=== PATIENT | female | born 1955 | race Caucasian/White ===

== ENCOUNTER 2022-11-25 08:10 | Outpatient (OUT) | payer MEDICARE, OTHER, SELFPAY ==
[2022-11-25 08:31] LABS: Basophils Percent Auto 0.2 % (0.2-2.0); Eosinophils Absolute Auto 0.1 10^3/uL (0.0-0.7); Eosinophils Percent Auto 2.6 % (0.9-7.0); Hematocrit 38.9 % (36.0-48.0); Hemoglobin 13.5 g/dL (12.0-16.0); Immature Granulocytes Abs Auto 0.01 10^3/uL (0.00-0.03); Immature Granulocytes Pct Auto 0.2 % (0.0-0.5); Lymphocytes Absolute Auto 1.8 10^3/uL (1.2-3.8); Lymphocytes Percent Auto 39.9 % (20.5-60.0); Mean Corpuscular HGB Conc 34.7 g/dL (29.9-35.2); Mean Corpuscular Hemoglobin 32.5 pg (26.7-34.0); Mean Corpuscular Volume 93.7 fL (81.0-99.0); Mean Platelet Volume 9.9 fL (9.5-13.5); Monocytes Absolute Auto 0.5 10^3/uL (0.3-0.8); Monocytes Percent Auto 11.8 % (1.7-12.0); Neutrophils Absolute Auto 2.1 10^3/uL (1.4-6.5); Neutrophils Percent Auto 45.3 % (43.0-75.0); Platelet Count 232 10^3/uL (150-450); Red Blood Count 4.15 10^6/uL (4.20-5.40); Red Cell Distribution Width 14.8 % (11.0-15.0); White Blood Count 4.6 10^3/uL (4.0-11.0)
[2022-11-25 10:03] LABS: Alanine Aminotransferase 30 U/L (14-59); Albumin Globulin Ratio 0.9; Albumin Level 3.8 g/dL (3.4-5.0); Alkaline Phosphatase 40 U/L (46-116); Anion Gap 13.7; Aspartate Amino Transferase 20 U/L (15-37); BUN Creatinine Ratio 22.4; Bilirubin Total 0.4 mg/dL (0.2-1.0); Calcium 9.1 mg/dL (8.5-10.1); Carbon Dioxide 27.3 mmol/L (21.0-32.0); Chloride 102 mmol/L (98-107); Chol HDL Ratio 4.1; Cholesterol 248 mg/dL (<=200); Estimated GFR (African America >60 (>=60); Estimated GFR (Non-African Ame >60 (>=60); Glucose 119 mg/dL (74-106); HDL Cholesterol 61 mg/dL (40-60); Sodium 139 mmol/L (136-145); Total Protein 7.8 g/dL (6.4-8.2); Triglycerides 266 mg/dL (<=150); VLDL CHOLESTEROL 53.2 mg/dL
== END 2022-11-25 08:11 | disposition home or self-care (01) ==
LOC: LAB 08:14
PROVIDERS: PCP Family Medicine; Visit Provider Family Medicine
DX: E78.00 Pure hypercholesterolemia, unspecified (principal); I10 Essential (primary) hypertension
CPT/HCPCS: 36415; 80053; 80061; 85025

== ENCOUNTER 2023-02-04 09:46 | Outpatient (REF) | payer MEDICARE, OTHER, SELFPAY ==
[2023-02-04 12:47] LABS: SARS-CoV-2 Ag POSITIVE (NEGATIVE)
== END 2023-02-04 09:47 | disposition home or self-care (01) ==
LOC: LAB 09:46
PROVIDERS: PCP Family Medicine; Visit Provider Family Medicine
DX: Z20.822 Contact with and (suspected) exposure to COVID-19 (principal)
CPT/HCPCS: 87811

== ENCOUNTER 2023-02-21 09:54 | Outpatient (OUT) | payer MEDICARE, OTHER, SELFPAY ==
--- NOTE | 2023-02-21 | XR_ITS ---
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 TECHNIQUE: Routine views of the XR foot RT min 3V FINDINGS/ XR/XR foot RT min 3V IMPRESSION: 1. No acute fractures. No aggressive periosteal reaction or destructive osseous changes. Plantar calcaneal spur and Achilles enthesophyte. 2. Mild swelling about the first MTP. 3. Posterior fusion at the first MTP with with essentially complete osseous bridging. Remaining joint spaces are largely preserved. Electronically authenticated by: STUART DESIR Date: 02/22/2023 13:20
== END 2023-02-21 09:55 | disposition home or self-care (01) ==
LOC: WC 09:55
PROVIDERS: PCP Family Medicine; Visit Provider Podiatrist Foot & Ankle Surgery
DX: E11.621 Type 2 diabetes mellitus with foot ulcer (principal); L84 Corns and callosities; E11.40 Type 2 diabetes mellitus with diabetic neuropathy, unspecified; L97.519 Non-pressure chronic ulcer of other part of right foot with unspecified severity
CPT/HCPCS: 73630; G0463

== ENCOUNTER 2023-02-25 07:27 | Outpatient (OUT) | payer MEDICARE, OTHER, SELFPAY ==
--- NOTE | 2023-02-25 | MR_ITS ---
The [address] [address] Patient Name: PARTH POWERS MRN: [id number] date: 1955 Sex: F Assigned Patient Location: MRI Current Patient Location: MRI Accession/Order Number: [id number] Exam Date: 02/25/2023 07:51 Report Date: 02/25/2023 08:36 At the request of: DAVID BOLANOS Procedure: MR head/brain wo con EXAM: MR head/brain wo con HISTORY: R41.3; memory deficit COMPARISON: None. TECHNIQUE: Multiplanar multisequence MR imaging of the brain was performed without intravenous contrast. FINDINGS: Calvarium/skull base: No focal marrow replacing lesion suggestive of neoplasm. Orbits: Grossly unremarkable. Paranasal sinuses: Subtotal opacification of the left maxillary sinus with heterogeneous internal signal likely relating to inspissated secretions and/or fungal colonization. Brain: No restricted diffusion. Minimal T2 FLAIR signal hyperintensities are present involving the left frontal white matter within normal limits for patient's age and most commonly relates to sequela small vessel disease. There is mild generalized parenchymal volume loss slightly more prominent involving the parietal lobes. No mass effect, hemorrhage, or hydrocephalus. Grossly normal flow-related signal in the major intracranial arteries and dural sinuses. MR/MR head/brain wo con IMPRESSION: 1. No acute intracranial process. 2. Mild generalized parenchymal volume loss slightly more prominent involving the parietal lobes. 3. Left maxillary sinus disease. Electronically authenticated by: DAIANA BERNAL Date: 02/25/2023 08:36
== END 2023-02-25 07:28 | disposition home or self-care (01) ==
LOC: MRI 07:27
PROVIDERS: PCP Family Medicine; Visit Provider Family Medicine
DX: R41.3 Other amnesia (principal)
CPT/HCPCS: 70551

== ENCOUNTER 2023-02-28 10:08 | Outpatient (OUT) | payer MEDICARE, OTHER, SELFPAY ==
[2023-02-28 11:50] LABS: Thyroid Stimulating Hormone 0.946 uIU/mL (0.358-3.740)
== END 2023-02-28 10:09 | disposition home or self-care (01) ==
LOC: LAB 10:09
PROVIDERS: PCP Family Medicine; Visit Provider Psychiatry & Neurology Neurology
DX: R41.3 Other amnesia (principal)
CPT/HCPCS: 36415; 82607; 84443

== ENCOUNTER 2023-08-19 13:45 | Outpatient (OUT) | payer MEDICARE, OTHER, SELFPAY ==
--- NOTE | 2023-08-19 14:06 | XR_ITS ---
The [address] [address] Patient Name: PARTH POWERS MRN: [id number] date: 1955 Sex: F Assigned Patient Location: [facility] Current Patient Location: Accession/Order Number: [id number] Exam Date: 08/19/2023 14:00 Report Date: 08/20/2023 06:52 At the request of: DAVID BOLANOS Procedure: XR hip LT 2V w/ pelvis PROCEDURE: XR hip LT 2V w/ pelvis HISTORY: pain of left hip M25.552 COMPARISON: None. FINDINGS: BONES:No fracture, acute abnormality, or significant arthropathy. SOFT TISSUES:No visible soft tissue swelling. EFFUSION:None visible. OTHER: Negative. XR/XR hip LT 2V w/ pelvis IMPRESSION: 1. No acute bone abnormality. 2. 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 Electronically authenticated by: HERMINIA BRUNER Date: 08/20/2023 06:52
== END 2023-08-19 13:46 | disposition home or self-care (01) ==
LOC: RAD 13:48
PROVIDERS: PCP Family Medicine; Visit Provider Family Medicine
DX: M25.552 Pain in left hip (principal); M16.0 Bilateral primary osteoarthritis of hip
CPT/HCPCS: 73502

== ENCOUNTER 2023-09-01 22:31 | Outpatient (REF) | payer MEDICARE, OTHER, SELFPAY ==
--- OUTSIDE RECORDS SUMMARY | 2023-09-01 22:41 | XMS_ITS | CCD ---
Author Organization [facility] Care Team Providers Care Banquet Chef Name Role Phone Keith Gaspar Unavailable Stacey Vigil Unavailable MD David Bolanos Primary Care Provider [phone] MD Regina Biggs Attending Provider David Bolanos Primary Care Unavailable Regina Biggs Attending Unavailable Regina Biggs Admitting Unavailable David Bolanos MD Primary Care Provider David Bolanos Unavailable SAV ., DR EM Hernandez Attending Unavailable LUIS MIGUEL, DR DAVID Bravo Consulting Unavailable LUIS MIGUEL, DR DAVID Bravo Primary Care Unavailable SAV ., DR EM Hernandez Admitting Unavailable SAV ., DR EM Hernandez Consulting Unavailable EUNICE KHANNA Consulting Unavailable SAV ., DR EM Hernandez Attending Unavailable LUIS MIGUEL, DR DAVID Bravo Primary Care Unavailable SAV ., DR EM Hernandez Consulting Unavailable SAV ., DR EM Hernandez Admitting Unavailable LUIS MIGUEL, DR DAVID Bravo Primary Care Unavailable SCARLETT WANG Admitting Unavailable SCARLETT WANG Attending Unavailable SAV ., DR EM Hernandez Attending Unavailable LUIS MIGUEL, DR DAVID Bravo Primary Care Unavailable SAV ., DR EM Hernandez Admitting Unavailable LUIS MIGUEL, DR DAVID Bravo Consulting Unavailable SAV ., DR EM Hernandez Consulting Unavailable JOSHUA HOLDER Consulting Unavailable SAV ., DR EM Hernandez Attending Unavailable LUIS MIGUEL, DR DAVID Bravo Primary Care Unavailable SAV ., DR EM Hernandez Admitting Unavailable SERNA ., DR EM Hernandez Consulting Unavailable SERNA ., DR EM Hernandez Attending Unavailable LUIS MIGUEL, DR DAVID Bravo Primary Care Unavailable SAV ., DR EM Hernandez Admitting Unavailable SAV ., DR EM Hernandez Consulting Unavailable SAV ., DR EM Hernandez Attending Unavailable LUIS MIGUEL, DR DAVID Bravo Primary Care Unavailable SERNA ., DR EM Hernandez Admitting Unavailable SERNA ., DR EM Hernandez Consulting Unavailable SERNA ., DR EM Hernandez Attending Unavailable BOLANOS, DR DAVID Bravo Primary Care Unavailable SERNA ., DR EM Hernandez Admitting Unavailable SERNA ., DR EM Hernandez Consulting Unavailable SERNA ., DR EM Hernandez Attending Unavailable BOLANOS, DR DAVID Bravo Primary Care Unavailable SERNA ., DR EM Hernandez Admitting Unavailable BOLANOS, DR DAVID Bravo Primary Care Unavailable BOLANOS, DR DAVID Bravo Attending Unavailable BOLANOS, DR DAVID Bravo Admitting Unavailable [place], DR IGLLES Campo Consulting Unavailable BOLANOS, DR DAVID Bravo Consulting Unavailable BOLANOS, DR DAVID Bravo Attending Unavailable BOLANOS, DR DAVID Bravo Admitting Unavailable BOLANOS, DR DAVID Bravo Primary Care Unavailable BOLANOS, DR DAVID Bravo Consulting Unavailable BOLANOS, DR DAVID Bravo Consulting Unavailable BOLANOS, DR DAVID Bravo Primary Care Unavailable BOLANOS, DR CHAUDHRY Admitting Unavailable BOLANOS, DR CHAUDHRY Attending Unavailable HEGG, IVÁN Consulting Unavailable KARASIK ., DR MENDEZ Attending Unavailabl e KARASIK ., DR MENDEZ Admitting Unavailabl e KARASIK ., DR MENDEZ Consulting Unavailabl e BOLANOS, DR DAVID Bravo Primary Care Unavailable WEST, DR GILLES Campo Consulting Unavailable BOLANOS, DR DAVID Bravo Primary Care Unavailable KARASIK ., DR MENDEZ Admitting Unavailabl e KARASIK ., DR MENDEZ Consulting Unavailabl e KARASIK ., DR MENDEZ Attending Unavailabl e SERNA ., DR EM Hernandez Attending Unavailable BOLANOS, DR DAVID Bravo Primary Care Unavailable SERNA ., DR EM Hernandez Admitting Unavailable SERNA ., DR EM Hernandez Attending Unavailable SERNA ., DR EM Hernandez Admitting Unavailable BOLANOS, DR DAVID Bravo Primary Care Unavailable SERNA ., DR EM Hernandez Consulting Unavailable JELENA CALIXTO Attending Unavailable BOLANOS, DAVID Bravo Primary Care Unavailable SELF Referring Unavailable GREGG BLUM Attending Unavailable LUIS MIGUEL, DAVID Bravo Primary Care Unavailable Sandeep ARCHULETA Attending Unavailable Sandeep ARCHULETA Attending Unavailable Za Espinoza Attending Unavailable Allergies Allergy Classification Reported Allergen(s) Allergy Type Date of Onset Reaction(s) Facility (15 sources) Acetaminophen / HYDROcodone; Translations: [Vicodin] Drug Allergy 03-27-20 15 Unknown [facility] Repository (19 sources) HYDROmorphone; Translations: [HYDROmorphone] Drug Allergy 03-27-20 15 Unknown [facility] Repository (13 sources) Morphine Drug Allergy Unknown [facility] Other (4 sources) Acetaminophen / HYDROcodone; Translations: [HYDROCODONE-ACET AMINOPHEN] Drug Allergy 12-23-19 15 [facility] (4 sources) Adhesive Tape; Translations: [ADHESIVE TAPE (ROSINS)] Allergy to substance 03-13-20 12 [facility] (4 sources) HYDROmorphone; Translations: [HYDROMORPHONE (BULK)] Drug Allergy 12-23-19 15 [facility] Latex; Translations: [LATEX, NATURAL RUBBER] Drug Allergy 08-15-19 17 [facility] (4 sources) Oats, Oat Gum; Translations: [OATS, OAT GUM] Food Allergy 05-21-19 17 [facility] (12 sources) Adhesive Tape; Translations: [Tape] Drug allergy Unknown [facility] Repository (12 sources) Latex; Translations: [Latex] Drug allergy Unknown [facility] Repository (2 sources) HYDROmorphone; Translations: [Dilaudid] Drug Allergy 03-27-20 15 [facility] Repository (1 source) Latex Drug allergy (disorder) 03-27-20 15 [facility] Repository (1 source) Morphine Drug Allergy [facility] Repository (2 sources) Nimorazole; Translations: [Oats] Drug Allergy 04-14-19 17 [facility] Repository (1 source) Misc-Other; Translations: [Misc-Other] Propensity to adverse reactions (disorder) 03-27-20 15 [facility] Repository (7 sources) Vicodin *ANALGESICS - OPIOID* Propensity to adverse reactions 04-14-19 19 Unknown [facility] [employer] Other (7 sources) Morphine Sulfate (Concentrate) *ANALGESICS - OPIOI Propensity to adverse reactions Unknown [facility] Other (2 sources) Allergies Reconciled Propensity to adverse reactions Unknown [facility] Other (2 sources) patient allergy list reviewed by nurse or physicia Propensity to adverse reactions 07-15-19 14 Comment:Done [facility] Other Medications Current Medications Medication Drug Class(es) Dates Sig (Normalized) Sig (Original) calcium carbonate 1500 mg oral tablet (18 sources) take 1 tablet by risa th every twelve hours Calcium 600 MG 1 tablet with meals Orally Twice a day Active take 1 tablet by mouth every twe lve hours Calcium 500 MG 1 tablet with meals Orally Twice a day Active dexamethasone phosphate 4 mg/ml injectable solution (13 sources) Corticosteroid Start: 03-20-2021 Dexamethasone Sodium Phosphate 4 MG/ML 1.5 - 2 ML's as directed with physical therapy Injection up to three times per week Mar, Active Start: 03-20-2021 dexAMETHasone Sodium Phosphate 4 MG/ML 1.5 - 2 ML's as directed with physical therapy Injection up to three times per week Mar, Not-Taking Fish Oils (11 sources) take 1 capsule by mo [facility] once daily Fish Oil 1000 MG 1 capsule Orally Once a day Active Iron (7 sources) take 1 tablet by mouth once leeanna y Iron 325 (65 Fe) MG 1 tablet Orally Once a day Active tiZANidine 4 mg oral tablet (11 sources) Central alpha-2 Adrenergic Agonist Start: 06-06-2022 take 1 tablet by mouth every eight hours tiZANidine HCl 4 MG 1 tablet as needed Orally Three times a day for 90 days May, Active Vitamin D3 [id number] UNIT/GM (18 sources) Vitamin D3 56362 [id number] UNIT/GM as directed Active {20 (nirmatrelvir 150 MG Oral Tablet) / 10 (ritonavir 100 MG Oral Tablet) } Pack [Paxlovid 5-Day] (2 sources) Start: 02-04-2023 take 3 tablets by mouth every twelve hours Paxlovid (300/100) 20 x 150 MG & 10 x 100MG 3 tablets Orally Twice a day for 5 day(s) Jan, Active Completed/Discontinued Medications Medication Drug Class(es) Dates Sig (Normalized) Sig (Original) A-CYSTEINE/ARG ZN/GLUT/MV-MN (RESTORE-X ORAL) (3 sources) A-CYSTEINE/ARG ZN/GLUT/MV-MN (RESTORE-X ORAL) Take by mouth. 0 Active Comment on above: Take by mouth. Acetaminophen (19 sources) take 1 tablet by mouth every six hours as needed Acetaminophen 500 MG 1 tablet as needed Orally every 6 hrs Not-Taking ACETAMINOPHEN (T YLENOL 8 HOUR ORAL) Take 2 tablets by mouth as needed. 0 Active Comment on above: Take 2 tablets by mo [facility] as needed. alendronic acid 35 mg oral tablet (20 sources) Bisphosphonate Start: 0 take 1 tablet by mouth every week alendronate (FOSAMAX) 35 mg tablet Take 35 mg by mouth one time a week. 0 08/12/2019 Active take 1 tablet by mouth once leeanna y Alendronate Sodium 35 MG 1 tablet 30 minutes before the first food, beverage or medicine of the day with plain water Orally Active Comment on above: Take 35 mg by mouth one time a week. Alpha Lipoic Acid 200 MG (9 sources) take 1 capsule by mouth once daily Alpha Lipoic Acid 200 MG 1 capsule Orally Once a day Not-Taking Ascorbic Acid (3 sources) Vitamin C ascorbic acid (VITAMIN C ORAL) Take by mouth once daily. 0 Active Comment on above: Take by mouth once d aily. aspirin 81 mg delayed release oral tablet (20 sources) Platelet Aggregation Inhibitor, Nonsteroidal Anti-inflammatory Drug take 1 tablet by mouth once daily aspirin, enteric coated (ASPIRIN, ENTERIC COATED) 81 mg EC tablet Take 81 mg by mouth once daily. 0 Active take 1 tablet by risa every twenty-four hours Aspirin 81 MG 1 tablet Orally Once a day Active Comment on above: Take 81 mg by mouth once daily. Biotin (20 sources) take 1 tablet by risa every twenty-four hours Biotin 300 MCG 1 tablet Orally Once a day Active BIOTIN ORAL Take by mouth. 0 Active take 1 tablet by mouth once leeanna y Biotin 300 MCG 1 tablet Orally Once a day Active Comment on above: Take by mouth. Calcium Carbonate / vitamin D3 (3 sources) Start: 08-11-19 20 calcium carbonate/vitamin D3 (CALCIUM 600 + D,3, ORAL) cholecalciferol 0.05 mg oral tablet (3 sources) Vitamin D take 1 tablet by mouth once daily cholecalciferol (VITAMIN D-3) 50 mcg (2,000 unit) tablet Take 2,000 Units by mouth once daily. 0 Active Comment on above: Take 2,000 Units by mouth once daily. DHEA 25 MG (9 sources) DHEA 25 MG as di rected Orally Not-Taking ferrous sulfate (14 sources) take 1 tablet by mouth every twenty-four hours Iron 325 (65 Fe) MG 1 tablet Orally Once a day Active take 65 mg by mouth three times weekly FERROUS SULFATE (IRON ORAL) Take 65 mg by mouth three times a week. 3 days a week 0 Active Comment on above: Take 65 mg by mouth three times a week. 3 days a week Fish Oil-[place]-3 Fatty Acids (FISH OIL) 340-1,000 mg cap (3 sources) take 1 capsule by mouth once daily Fish Oil-Moclips-3 Fatty Acids (FISH OIL) 340-1,000 mg cap Take 1 capsule by mouth once daily. 0 Active Comment on above: Take 1 capsule by mo [facility] once daily. fluocinonide 0.5 mg/ml topical cream (11 sources) Corticosteroid Start: 03-22-20 21 Fluocinonide 0.05 % apply 1-2 grams Externally up to three times weekly with PT Mar, Not-Taking glucosamine 750 mg oral tablet (9 sources) Glucosamine 750 MG as directed Orally Not-Taking glucosamine/chondroi tin/C/Bin (GLUCOSAMINE 1500 COMPLEX ORAL) (3 sources) glucosamine/walt droi tin/C/Bin (GLUCOSAMINE 1500 COMPLEX ORAL) Take 1,500 mg by mouth once daily. 0 Active Comment on above: [facility] losartan potassium 25 mg oral tablet (20 sources) Angiotensin 2 Receptor Rosamaria Start: 11-16-19 18 take 1 tablet by mouth once daily losartan (COZAAR) 25 mg tablet Take 25 mg by mouth once daily. 0 11/15/2017 Active Comment on above: Take 25 mg by mouth once daily. Magnesium (9 sources) Magnesium 400 MG as directed Orally Not-Taking magnesium oxide 400 mg oral tablet (3 sources) take 1 tablet by mouth once daily at bedtime magnesium oxide 400 mg magnesium tab Take 400 mg by mouth daily at bedtime. 0 Active Comment on above: Take 400 mg by mouth daily at bedtime. meloxicam 15 mg oral tablet (16 sources) Nonsteroidal Anti-inflammatory Drug Start: 07-20-19 21 take 1 tablet by mouth every twenty-four hours Meloxicam 15 MG 1 tablet Orally Once a day for 30 day(s) Jul, Not-Taking multivitamin tablet (3 sources) Start: 03-13-20 12 take 1 tablet by mouth once daily multivitamin tablet Take 1 tablet by mouth once daily. 0 03/13/2012 Active Comment on above: [facility]. niacin 500 mg extended release oral capsule (3 sources) Nicotinic Acid take 1 capsule by mouth once daily at bedtime niacin 500 mg CR capsule Take 500 mg by mouth daily at bedtime. 0 Active Comment on above: Take 500 mg by mouth daily at bedtime. PNV no.153/FA/om3/dha/ep a/fish ( GUMMIES ORAL) (3 sources) PNV no.153/FA/om3/dha/ep a/fish ( GUMMIES ORAL) Take by mouth once daily. 0 Active Comment on above: Take by mouth once d aily. prasterone, DHEA, (DHEA ORAL) (3 sources) prasterone, DHEA , (DHEA ORAL) Take by mouth once daily. 0 Active Comment on above: Take by mouth once d aily. pravastatin sodium 40 mg oral tablet (20 sources) HMG-CoA Reductase Inhibitor Start: 03-13-20 12 take 1 tablet by mouth once daily at bedtime pravastatin (PRAVACHOL) 40 mg tablet Take 1 tablet by mouth daily at bedtime. 0 03/13/2012 Active Comment on above: Take 1 tablet by risa th daily at bedtime. (9 sources) Not-Norman ing Probiotic (9 sources) Probiotic Not-Ta josué rOPINIRole 0.25 mg oral tablet (12 sources) Nonergot Dopamine Agonist End: 07-02-19 24 take 1 tablet by mouth once daily at bedtime rOPINIRole (REQUIP) 0.25 mg tablet Take 0.25 mg by mouth daily at bedtime. 0 07/02/2023 Discontinued Requip XL Not-Ta josué Comment on above: Take 0.25 mg by mout h daily at bedtime. thioctic acid 100 mg oral capsule (3 sources) Alpha Lipoic Aci d 100 mg cap Take by mouth once daily. 0 Active Comment on above: Take by mouth once d aily. Triamcinolone (11 sources) Corticosteroid Start: 07-19-2020 Kenalog -40 mg Jul, 40 mg ubidecarenone 30 mg oral capsule (9 sources) CoQ10 30 MG as d irected Orally Not-Taking ubiquinol (3 sources) End: 07-02-2023 COQ10, UBIQUINOL, ORAL Take by mouth once daily. 0 07/02/2023 Discontinued COQ10, UBIQUINOL , ORAL Take by mouth once daily. 0 Active Comment on above: Take by mouth once d aily. VITAMIN B COMPLEX ORAL (3 sources) VITAMIN B COMPLE X ORAL Take by mouth once daily. 0 Active Comment on above: Take by mouth once d aily. vitamin e 268 mg oral capsule (3 sources) take 1 capsule by mouth once daily alpha tocopheryl acetate (VITAMIN E) 400 unit capsule Take 400 Units by mouth once daily. 0 Active Comment on above: Take [address] [facility] once daily. Vitamin E 1000 IU (16 sources) Vitamin E 1000 I U Not-Taking Vitamin E 1000 I U Active Problems Active Problems Problem Classification Problem Date Documented Date Episodic/Chronic Acquired foot deformities (4 sources) Acquired hallux rigidus; Translations: [Hallux rigidus, right foot] Chronic Administrative/social admission (2 sources) Informing health critical care nurse practitioner of test result; Translations: [Person consulting for explanation of examination or test findings] Episodic Cancer of breast (11 sources) Malignant neoplasm of upper-outer quadrant of female breast; Translations: [Malignant neoplasm of upper-outer quadrant of left female breast] Onset: 03-19-2012 Chronic Complication of device; implant or graft (2 sources) Pain due to internal orthopedic prosthetic devices, implants and grafts, initial encounter; Translations: [Pain due to internal orthopedic prosth dev/grft, init] Episodic Complications of surgical procedures or medical care (2 sources) Pseudarthrosis after fusion or arthrodesis; Translations: [Pseudarthrosis after fusion or arthrodesis] Episodic Conditions associated with dizziness or vertigo (13 sources) Benign paroxysmal positional vertigo; Translations: [Benign paroxysmal vertigo, bilateral] Episodic Diabetes mellitus with complications (3 sources) Peripheral sensory neuropathy due to type 2 diabetes mellitus; Translations: [Type 2 diabetes mellitus with diabetic polyneuropathy] Chronic Diabetes mellitus without complication (14 sources) Impaired fasting glycemia; Translations: [Impaired fasting glucose] Onset: 11-15-2021 Episodic Disorders of lipid metabolism (20 sources) Hyperlipidemia; Translations: [Hyperlipidemia, unspecified] Onset: 03-19-2012 03-19-2012 Chronic Essential hypertension (15 sources) Hypertensive disorder; Translations: [Essential (primary) hypertension] Onset: 11-15-2021 Chronic Gastroduodenal ulcer (except hemorrhage) (2 sources) Peptic ulcer without hemorrhage, without perforation AND without obstruction; Translations: [Peptic ulcer, site unspecified, unspecified as acute or chronic, without hemorrhage or perforation] Chronic Headache; including migraine (2 sources) Headache; Translations: [Headache, unspecified] Episodic Immunizations and screening for infectious disease (3 sources) Encounter for screening for human papillomavirus (HPV); Translations: [Vaccination given] Onset: 09-06-2021 Episodic Open wounds of extremities (1 source) Unspecified open wound, unspecified foot, initial encounter Episodic Osteoarthritis (20 sources) Arthritis of right hip; Translations: [Unilateral primary osteoarthritis, right hip] Onset: 01-10-2021 Resolved: 05-10-2021 Chronic Other acquired deformities (2 sources) Joint contracture of the ankle and/or foot; Translations: [Contracture, left ankle] Chronic Other bone disease and musculoskeletal deformities (11 sources) Osteopenia; Translations: [Other specified disorders of bone density and structure, unspecified site] Episodic Other bone disease and musculoskeletal deformities (2 sources) Bone density finding; Translations: [Other specified disorders of bone density and structure, unspecified site] Episodic Other circulatory disease (2 sources) Elevated blood-pressure reading without diagnosis of hypertension; Translations: [Elevated blood-pressure reading, without diagnosis of hypertension] Episodic Other connective tissue disease (13 sources) Spontaneous rupture of other tendons, left ankle and foot; Translations: [Nontraumatic rupture of left posterior tibial tendon] Episodic Other connective tissue disease (2 sources) Pain in left foot; Translations: [Pain in left foot] Episodic Other connective tissue disease (2 sources) Tibialis tendinitis; Translations: [Posterior tibial tendinitis, left leg] Episodic Other connective tissue disease (2 sources) Pain in right foot; Translations: [Pain in right foot] Episodic Other connective tissue disease (2 sources) Plantar fascial fibromatosis; Translations: [Plantar fascial fibromatosis] Episodic Other endocrine disorders (13 sources) Hypoglycemia; Translations: [Hypoglycemia, unspecified] Chronic Other female genital disorders (2 sources) Noninflammatory disorder of the vagina; Translations: [Other specified noninflammatory disorders of vagina] Episodic Other injuries and conditions due to external causes (2 sources) History of fall; Translations: [History of falling] Episodic Other nervous system disorders (20 sources) Chronic pain; Translations: [Other chronic pain] Chronic Other nervous system disorders (5 sources) Other chronic pain; Translations: [Chronic pain G89.29] Onset: 01-17-2021 Resolved: 05-10-2021 Chronic Other nervous system disorders (11 sources) Peripheral neuropathic pain; Translations: [Polyneuropathy, unspecified] Chronic Other nervous system disorders (2 sources) Polyneuropathy; Translations: [Polyneuropathy, unspecified] Chronic Other non-traumatic joint disorders (6 sources) Pain in left shoulder; Translations: [PAIN IN LEFT SHOULDER] Onset: 06-26-2022 Episodic Other nutritional; endocrine; and metabolic disorders (4 sources) Obese class I; Translations: [Body mass index (BMI) 32.0-32.9, adult] Chronic Other nutritional; endocrine; and metabolic disorders (2 sources) Obesity; Translations: [Obesity, unspecified] Chronic Other nutritional; endocrine; and metabolic disorders (2 sources) Body mass index 30+ - obesity; Translations: [Body mass index (BMI) 30.0-30.9, adult] Onset: 07-20-2019 Chronic Peripheral and visceral atherosclerosis (1 source) Peripheral vascular disease, unspecified; Translations: [PERIPHERAL VASCULAR DISEASE UNS] Onset: 02-15-2022 Chronic Residual codes; unclassified (13 sources) Obstructive sleep apnea syndrome; Translations: [Obstructive sleep apnea (adult) (pediatric)] Onset: 01-25-2015 Chronic Residual codes; unclassified (1 source) Obstructive sleep apnea (adult) (pediatric) Chronic Residual codes; unclassified (5 sources) Asymptomatic menopausal state; Translations: [ASYMPTOMATIC MENOPAUSAL STATE] Onset: 10-09-2021 Episodic Residual codes; unclassified (2 sources) Tobacco user; Translations: [Tobacco use] Episodic Residual codes; unclassified (2 sources) Postmenopausal state; Translations: [Asymptomatic menopausal state] Episodic Residual codes; unclassified (2 sources) Postprocedural state finding; Translations: [Other specified postprocedural states] Episodic Residual codes; unclassified (2 sources) Memory impairment; Translations: [Other amnesia] Episodic Residual codes; unclassified (1 source) Other amnesia Episodic Spondylosis; intervertebral disc disorders; other back problems (8 sources) Other spondylosis with radiculopathy, lumbar region; Translations: [Spondylosis without myelopathy or radiculopathy, lumbar region] Onset: 01-17-2022 Chronic Spondylosis; intervertebral disc disorders; other back problems (20 sources) Lumbar radiculopathy; Translations: [Radiculopathy, lumbar region] Onset: 12-19-2021 Episodic Sprains and strains (2 sources) Strain of other muscles, fascia and tendons at shoulder and upper arm level, left arm, initial encounter Episodic Unclassified (1 source) Unspecified ptosis of bilateral eyelids; Translations: [Unspecified ptosis of bilateral eyelids] Onset: 05-01-2022 Unclassified (4 sources) LOW BACK PAIN, UNSPECIFIED; Translations: [LOW BACK PAIN, UNSPECIFIED] Onset: 04-18-2022 Unclassified (1 source) CONTACT W/AND (SUSP) EXPOS COVID-19; Translations: [CONTACT W/AND (SUSP) EXPOS COVID-19] Onset: 04-25-2022 Viral infection (13 sources) Verruca vulgaris; Translations: [Other viral warts] Episodic Past or Other Problems Problem Classification Problem Date Documented Da te Episodic/Chronic Cancer of breast (5 sources) History of malignant neoplasm of breast; Translations: [Personal history of malignant neoplasm of breast] Onset: 12-19-2016 12-19-2016 Episodic Malaise and fatigue (2 sources) Fatigue; Translations: [Other fatigue] Onset: 07-14-2013 Episodic Menstrual disorders (2 sources) Excessive and frequent menstruation; Translations: [Excessive and frequent menstruation with regular cycle] Onset: 09-20-2005 Resolved: 06-19-2016 Chronic Other bone disease and musculoskeletal deformities (1 source) Other specified disorders of bone density and structure, unspecified site; Translations: [OTH D/O BONE DEN STRUCT UNS SITE] Onset: 10-22-2021 Episodic Other bone disease and musculoskeletal deformities (2 sources) Other specified disorders of bone, thigh; Translations: [Other specified disorders of bone, thigh] Resolved: 08-30-2021 Episodic Other connective tissue disease (5 sources) Trochanteric bursitis, right hip; Translations: [Trochanteric bursitis of right hip M70.61] Onset: 01-10-2021 Resolved: 05-10-2021 Episodic Other connective tissue disease (1 source) Pain in right leg; Translations: [Pain of right lower extremity M79.604] Onset: 01-10-2021 Resolved: 01-10-2021 Episodic Other connective tissue disease (1 source) Disorder of muscle, unspecified; Translations: [DISORDER OF MUSCLE UNSPECIFIED] Onset: 02-15-2022 Episodic Other nervous system disorders (2 sources) Hereditary disorder of nervous system; Translations: [Hereditary and idiopathic neuropathy, unspecified] Onset: 10-11-2014 Resolved: 07-21-2020 Chronic Other nutritional; endocrine; and metabolic disorders (2 sources) Body mass index 25-29 - overweight; Translations: [Body mass index (BMI) 28.0-28.9, adult] Resolved: 07-20-2019 Episodic Other nutritional; endocrine; and metabolic disorders (2 sources) Overweight; Translations: [Overweight] Resolved: 07-20-2019 Episodic Other screening for suspected conditions (not mental disorders or infectious disease) (4 sources) Encounter for screening for malignant neoplasm of cervix; Translations: [ENC SCREENING MALIG NEOPLASM CERV] Onset: 09-03-2021 Episodic Other upper respiratory infections (2 sources) Acute maxillary sinusitis; Translations: [Acute recurrent maxillary sinusitis] Onset: 01-02-2017 Episodic Residual codes; unclassified (2 sources) Family history of breast cancer; Translations: [Family history of malignant neoplasm of breast] Onset: 07-14-2013 Resolved: 08-11-2019 Episodic Unclassified (1 source) LOW BACK PAIN, UNSPECIFIED; Translations: [LOW BACK PAIN, UNSPECIFIED] Onset: 05-16-2022 Viral infection (14 sources) Disease caused by 2019-nCoV; Translations: [COVID-19] Results Test Name Value Interpretation Reference Range Facility [facility] 07-01-2023 OVS Visit (SP) Office (KELLY) ---- PARTH POWERS ([id number]) 1955 F Date Time Provider Department 07/01/23 2:15 PM GREGG BLUM During your visit today, we recorded the following information about you: Temperature Pulse Respiration Blood pressure 97.2 degrees 90/minute 16/minute 130/78 Weight Height 78.4 kg 1.622 m Gregg Blum MD 07/02/2023 6:32 AM Signed PATIENT NAME: Parth Powers DATE: 07/01/2023 PRIMARY CARE PHYSICIAN: David Bolanos MD OTHER PHYSICIANS: Dr. Dejesus, Dr. Tash Quesada, Dr. Serna (Pain Management) Portions of this encounter note have been copied from the note from 2022 and has been updated where appropriate, and reflect my current medical decision making from today. CC: This is a 68 year old female with a history of breast cancer, seen for scheduled follow-up. INTERIM HISTORY: Since the patient's last visit here she has had no significant medical changes. Overall she feels well with no particular complaints. She has noticed no changes in her chest wall. No unusual pain or other systemic symptoms. MEDICATIONS: aspirin, enteric coated (ASPIRIN, ENTERIC COATED) 81 mg EC tablet Take 81 mg by mouth once daily. cholecalciferol (VITAMIN D-3) 50 mcg (2,000 unit) tablet Take 2,000 Units by mouth once daily. ascorbic acid (VITAMIN C ORAL) Take by mouth once daily. glucosamine/chondro itin/C/Bin (GLUCOSAMINE 1500 COMPLEX ORAL) Take 1,500 mg by mouth once daily. PNV no.153/FA/om3/dha/e pa/fish ( GUMMIES ORAL) Take by mouth once daily. Fish Oil-[place]-3 Fatty Acids (FISH OIL) 340-1,000 mg cap Take 1 capsule by mouth once daily. niacin 500 mg CR capsule Take 500 mg by mouth daily at bedtime. magnesium oxide 400 mg magnesium tab Take 400 mg by mouth daily at bedtime. rOPINIRole (REQUIP) 0.25 mg tablet Take 0.25 mg by mouth daily at bedtime. Alpha Lipoic Acid 100 mg cap Take by mouth once daily. prasterone, DHEA, (DHEA ORAL) Take by mouth once daily. COQ10, UBIQUINOL, ORAL Take by mouth once daily. calcium carbonate/vitamin D3 (CALCIUM 600 + D,3, ORAL) (Patient not taking: No sig reported) alendronate (FOSAMAX) 35 mg tablet Take 35 mg by mouth one time a week. losartan (COZAAR) 25 mg tablet Take 25 mg by mouth once daily. alpha tocopheryl acetate (VITAMIN E) 400 unit capsule Take 400 Units by mouth once daily. VITAMIN B COMPLEX ORAL Take by mouth once daily. BIOTIN ORAL Take by mouth. A-CYSTEINE/ARG ZN/GLUT/MV-MN (RESTORE-X ORAL) Take by mouth. (Patient not taking: No sig reported) FERROUS SULFATE (IRON ORAL) Take 65 mg by mouth three times a week. 3 days a week ACETAMINOPHEN (TYLENOL 8 HOUR ORAL) Take 2 tablets by mouth as needed. multivitamin tablet Take 1 tablet by mouth once daily. pravastatin (PRAVACHOL) 40 mg tablet Take 1 tablet by mouth daily at bedtime. ALLERGIES: Dilaudid [Hydromorphone (Bulk)]; Latex, Natural Rubber; Oats, Oat Gum; Tape [Adhesive Tape (Rosins)]; and Vicodin [Hydrocodone-Acetam inophen] PAST MEDICAL HISTORY: PAST MEDICAL HISTORY Diagnosis Date Bursitis of right hip Hyperlipidemia Hypertension Neuropathy Osteopenia Stomach disease PAST SURGICAL HISTORY: PAST SURGICAL HISTORY Procedure Laterality Date BREAST BIOPSY 04/03/2012 left breast COLONOSCOPY DILATION AND CURETTAGE DXAND/THER NONOBSTETRIC x2 MASTECTOMY PARTIAL Left REVIEW OF SYSTEMS: GENERAL: No weight loss, malaise or fevers. HEENT: Negative for frequent or significant headaches, No changes in hearing or vision, no nose bleeds or other nasal problems RESPIRATORY: Negative for cough, wheezing or shortness of breath. CARDIOVASCULAR: Negative for chest pain, leg swelling or palpitations. GI: Negative for abdominal discomfort, blood in stools or black stools or change in bowel habits : No history of dysuria, frequency or incontinence MUSCULOSKELETAL: Negative for: joint pain or swelling, back pain and muscle pain SKIN: Negative for lesions, rash, and itching. HEMATOLOGY/LYMPHOLO GY: Negative for prolonged bleeding, bruising easily or swollen nodes. NEURO: No history of headaches, syncope, paralysis, seizures or tremors BREAST: scar tissue to left mastectomy area PHYSICAL EXAM: Vitals: BP 130/78 Pulse 90 Temp 36.2 ?C (97.2 ?F) (Temporal) Resp 16 Ht 162.2 cm (5' 3.86 ) Wt 78.4 kg (172 lb 13.5 oz) SpO2 96% BMI 29.80 kg/m? General appearance: well appearing, alert, in no acute distress, well-hydrated, well nourished Skin: skin color, texture, turgor normal, no suspicious rashes or lesions Head: normal Eyes: Anicteric sclera. Pupils are equally round and reactive to light. Extraocular movements are intact. Ears: negative findings: external ears normal to inspection and palpation Oropharynx: negative Neck: Supple, no adenopathy; thyroid symmetric, normal size Lymph Nodes: No Submandibular (more content not included)... Normal [facility] Ambulatory Visit Summaryon 0 05-05-2023 Ambulatory Visit Summary PARTH POWERS :1955 Visit Date:05/05/2023 Ambulatory Visit Instructions Your Diagnosis Urge incontinence Tests Performed Urnls Dip Stick Auto w/o Microscopy POC [id number] Your Care Team Attending Physician - SERGIO DYKES, Sandeep Simmons Primary Care Physician - DAVID BOLANOS MD This Is Your Medications List Contact prescribing physician if questions or concerns Non-Formulary Medication (fosamax) alendronate (alendronate 35 mg Tab) ascorbic acid (Vitamin C) aspirin (aspirin 81 mg oral tablet) biotin calcium carbonate (calcium (as carbonate) 600 mg oral tablet) dehydroepiandroster one (DHEA) ferrous sulfate glucosamine (glucosamine hydrochloride 1500 mg oral tablet) lactobacillus acidophilus (Acidophilus Probiotic Blend) losartan (losartan 25 mg Tab) magnesium sulfate multivitamin (Multi Vitamin+) multivitamin (Vitamin B Complex oral capsule) niacin omega-3 polyunsaturated fatty acids (Fish Oil) pravastatin ropinirole (Requip 0.25 mg Tab) valsartan vitamin E Procedures Performed Injection of therapeutic substance into bladder wall (05/28/2022), Injection of therapeutic substance into bladder wall (02/06/2021), Cystoscopy (10/26/2019), Bilateral mastectomy (02/2019), Injection of therapeutic substance into bladder wall (02/17/2018), Injection of therapeutic substance into bladder wall (11/19/2016), [place] node biopsy (03/2012), Lumpectomy (02/2012), External beam radiotherapy (2011), Cystoscopy (04/11/2003), Urodynamics (04/11/2003), D&C - Dilatation and curettage, Excision of calcaneal spur. Discharge Vitals Heart Rate (Peripheral) 68 Respiratory Rate 16 Blood Pressure 128/80 Height 165 cm Height 65 in Weight 180.6 kg Weight 397.32 lb BMI 66.34 What to do next Scheduled Follow-Up Appointments Friday 8:45 AM EST With: Sandeep ARCHULETA MD Where: [facility] Ciro Mckee [facility] Patient Educationon 05-05-19 24 Patient Education Urology Botulinum Toxin Bladder Injection A botulinum toxin bladder injection is a procedure to treat an overactive bladder. During the procedure, a drug called botulinum toxin is injected into the bladder through a long, thin needle. This drug relaxes the bladder muscles and reduces overactivity. You may need this procedure if your medicines are not working or you cannot take them. The procedure may be repeated as needed. The treatment is done once and it usually lasts for 6 months. Your health care provider will monitor you to see how well you respond. Tell a health care provider about: ? Any allergies you have. ? All medicines you are taking, including vitamins, herbs, eye drops, creams, and rggm-ohs-luutban medicines. ? Any problems you or family members have had with anesthetic medicines. ? Any bleeding problems you have. ? Any surgeries you have had. ? Any medical conditions you have. ? Any previous reactions to a botulinum toxin injection. ? Any symptoms of urinary tract infection. These include chills, fever, a burning feeling when passing urine, and needing to pass urine often. ? Whether you are or may be . What are the risks? Generally this is a safe procedure. However, problems may occur, including: ? Not being able to pass urine. If this happens, you may need to have your bladder emptied with a thin tube (urinary catheter). ? Bleeding. ? Urinary tract infection. ? Allergic reaction to the botulinum toxin. ? Pain or burning when passing urine. ? Damage to nearby structures or organs. What happens before the procedure? When to stop eating and drinking Follow instructions from your health care provider about what you may eat and drink before your procedure. These may include: ? 8 hours before the procedure ? Stop eating most foods. Do not eat meat, fried foods, or fatty foods. ? Eat only light foods, such as toast or crackers. ? All liquids are okay except energy drinks and alcohol. ? 6 hours before the procedure ? Stop eating. ? Drink only clear liquids, such as water, clear fruit juice, black coffee, plain tea, and sports drinks. ? Do not drink energy drinks or alcohol. ? 2 hours before the procedure ? Stop drinking all liquids. ? You may be allowed to take medicines with small sips of water. If you do not follow your health care provider's instructions, your procedure may be delayed or canceled. Medicines Ask your health care provider about: ? Changing or stopping your regular medicines. This is especially important if you are taking diabetes medicines or blood thinners. ? Taking medicines such as aspirin and ibuprofen. These medicines can thin your blood. Do not take these medicines unless your health care provider tells you to take them. ? Taking btgd-arv-knhloyr medicines, vitamins, herbs, and supplements. General instructions ? Ask your health care provider what steps will be taken to help prevent infection. These steps may include: ? Removing hair at the procedure site. ? Washing skin with a germ-killing soap. ? Taking antibiotic medicine. ? If you will be going home right after the procedure, plan to have a responsible adult: ? Take you home from the hospital or clinic. You will not be allowed to drive. ? Care for you for the time you are told. What happens during the procedure? ? You will be asked to empty your bladder. ? An IV will be inserted into one of your veins. ? You will be given one or more of the following: ? A medicine to help you relax (sedative). ? A medicine to numb the area (local anesthetic). ? A medicine to make you fall asleep (general anesthetic). ? A long, thin scope called a cystoscope will be passed into your bladder through the part of the body that carries urine from your bladder (urethra). ? The cystoscope will be used to fill your bladder with water. ? A long needle will be passed through the cystoscope and into the bladder. ? The botulinum toxin will be injected into your bladder. It may be injected into multiple areas of your bladder. ? The cystoscope will be removed and your bladder will be emptied with a urinary catheter. The procedure may vary among health care providers and hospitals. What can I expect after the procedure? After your procedure, it is common to have: ? Blood-tinged urine. ? Burning or soreness when you pass urine. Follow these instructions at home: Medicines ? Take ujzk-kvz-pqwnnce and prescription medicines only as told by your health care provider. ? If you were prescribed an antibiotic medicine, take it as told by your health care provider. Do not stop using the antibiotic even if you start to feel better. General instructions ? If you were given a sedative during the procedure, it can affect you for several hours. Do not drive or operate machinery until your health ca (more content not included)... Normal [facility] Urology Office/Clinic Noteon 05-05-2023 Urology Office/Clinic Note Chief Complaint urge incontinence HPI Staff 67 yo female here for 11 month f/u. Previous Dx: UUI. S/p Botox 100u 11/19/16, 02/17/18, 10/26/19, 02/06/21, and 05/28/22. PVR was 33mL on 06/11/22. No urinary medications Dysuria: no Incomplete bladder emptying: no Hematuria: no Frequency: no Urgency: no Nocturia: does not get up Stream: good stream no straining Leaking: only leaks with sitting up or leaning Post void dripping: no Wearing pads/ Depends: no Urge incontinence: no Stress incontinence: with sitting up or leaning sometimes Incontinence without Sensory Awareness: no Abdominal pain: no Flank pain: no Sexual complaints: no History of Present Illness Tests Reviewed: Reviewed UA. I have reviewed and verified the staff HPI to be accurate for this encounter. I have reviewed the previous health record information and history for this patient from Dr. Archuleta. There have been no associated fever, chills, flank pain, or blood in the urine. Denies any urinary infections since last encounter. Review of Systems PHQ Score Initial Depression Screen Score: 0 SCORE ROS - Provider Constitutional: denies weight loss, denies hot flashes. Eyes: denies eye problems. Gastrointestinal: denies nausea, denies vomiting. Cardiovascular: denies chest pain or angina. Integumentary: no dryness Musculoskeletal: denies musculoskeletal symptoms. ENMT: denies otolaryngeal symptoms. Respiratory: no shortness of breath. Heme/Lymph: denies easy bleeding tendency, denies easy bruising tendency. Psychiatric: no confusion, no anxiety. Genitourinary: denies vaginal discharge, mild incontinence, denies dysuria, denies hematuria, denies urinary frequency, denies amenorrhea, denies menorrhagia, denies abnormal bleeding, denies pelvic pain, denies genital sores, and denies decreased libido. Physical Exam Vitals & Measurements HR: 68(Peripheral) RR: 16 BP: 128/80 HT: 65 in HT: 165 cm WT: 180.6 kg WT: 397.32 lb BMI: 66.34 General Appearance: alert , no acute distress, well nourished, well developed female. Genitourinary: bladder nonpalpable, no flank pain. Assessment/Plan 1. Urge incontinence (N39.41: Urge incontinence) S/p Botox 100u 11/19/16, 02/17/18, 10/26/19, 02/06/21, and 05/28/22. PVR was 33mL on 06/11/22. Patient has urgency when going from sitting up or leaning, intermittently. Mild urgency when she gets out of bed to use bathroom. no leaking at all yet. She states it is manageable at this time. She does not wish to start any meds. Does not use any pads. UA today shows trace leuks, denies any recent infections. She feels empty. Does not take any oral bladder meds. She wishes to try another Botox treatment when the leaking starts up again. She was warned of possible incomplete emptying and urinary retention with Botox. She is to call when the leaking restarts. she is to call and get repeat Botox treatment. Will schedule Botox when patient calls. The procedural risks, benefits, details, and treatment alternatives have been discussed with the patient. These include bleeding, infection, continued problems with overactive bladder, inability to empty the bladder which could require an indwelling catheter or need for in/out catheterization to empty the bladder, and need for repeat procedures over time (usually lasts up to six months), as well as fatigue and insomnia, among others. There is a minimal risk of Botox entering the blood stream and causing neurological problems, which is quite rare. Full informed consent has been obtained. Will order Local anesthesia. Follow-up With When Contact Information Sandeep ARCHULETA MD, URL In 1 year [facility] [address] [place] [id number] [phone] Additional Instructions: 1 year f/u She will call for Botox Patient Education Botulinum Toxin Bladder Injection Urinary Incontinence I, Antonina Uribe, personally scribed for Dr. Archuleta on 05/05/2023 09:00:14. . Documentation recorded by the scribemakayla, accurately reflects the services(s) I performed and decisions made by me. Authenticated by Dr. Archuleta on 05/05/2023 09:04:27. Problem List/Past Medical History Ongoing Anticoagulated Aspirin long-term use Eczema Esophageal reflux History of breast cancer Hyperlipidemia Hypertension senior care current use of anticoagulant therapy Mixed incontinence Neuropathy Urge incontinence Urinary urgency Historical No qualifying data Procedure/Surgical History Injection of therapeutic substance into bladder wall (05/28/2022), Injection of therapeutic substance into bladder wall (02/06/2021), Cystoscopy (10/26/2019), Bilateral mastectomy (02/2019), Injection of therapeutic substance into bladder wall (02/17/2018), Injection of therapeutic substance into bladder wall (11/19/2016), [place] node biopsy (03/2012), Lumpectomy (02/2012), External beam radiotherapy (2011), Cysto (more content not included)... Normal [facility] Comment on above: Result Comment: Elec tronically Signed By: Sandeep ARCHULETA MD\.br\Date and Time Signed: 05/05/23 09:04 EST\.br\Electronically Co-Signed By: Antonina Uribe\.br\Date and Time Co-Signed: 05/05/23 09:00 EST XR SHOULDER LT 2V or >on XR SHOULDER LT 2V or > Exam: Radiographs : XR SHOULDER LT 2V or > Reason for exam: Left shoulder pain Comparison: None IMPRESSION: Mild left glenohumeral and AC joint degenerative change. Possible osteochondral loose bodies in a glenohumeral joint recess. Left axillary surgical clips. Left shoulder is otherwise unremarkable. Electronically authenticated by: IVÁN REY Date: 2022-06-26 14:15 Normal [facility] Basophils Auto (Bld) [#/Vol] Ordered By: Regina Biggs on 05-01-2022 Basophils (Bld) [#/Vol] 0.0 10*3/uL 0.0-0.2 [facility] Basophils/100 WBC Auto (Bld) Ordered By: Regina Biggs on 05-01-2022 Basophils/100 WBC (Bld) 0.5 % . [facility] Body fluid albumin measureme nt (mass/volume)Ordered By: Regina Biggs on 05-01-2022 Albumin (Body fld) [Mass/Vol] 4.0 g/dL 3.2-5.5 [facility] Complete Blood Count Auto Di ffon 05-01-2022 Basophils (Bld) [#/Vol] 0.0 10*3/uL Normal 0.0-0.2 [facility] Comment on above: Result Comment: PERF ORMED BY: [place] [address] PATHOLOGIST PATENT LITIGATION ASSOCIATE ARUNA CODY M.D. Performed By: #### C BC, CMP #### [address] Basophils/100 WBC (Bld) 0.5 % Normal . [facility] Comment on above: Performed By: #### C BC, CMP #### [place] [address] [place] Eosinophils (Bld) [#/Vol] 0.1 10*3/uL Normal 0.0-0.45 [facility] Comment on above: Performed By: #### C BC, CMP #### [place] [address] [place] Eosinophils/100 WBC (Bld) 2.1 % Normal . [facility] Comment on above: Performed By: #### C BC, CMP #### [address] Erythrocyte distribution width (RBC) [Ratio] 14.6 % Normal 11.9-15.3 [facility] Comment on above: Performed By: #### C BC, CMP #### [address] Hematocrit (Bld) [Volume fraction] 41.0 % Normal 34.0-46.4 [facility] Comment on above: Performed By: #### C BC, CMP #### [facility] [address] [place] [address] [place] Hemoglobin (Bld) [Mass/Vol] 13.6 g/dL Normal 11.8-15.4 [facility] Comment on above: Performed By: #### C BC, CMP #### [facility] [address] Lymphocytes (Bld) [#/Vol] 1.9 10*3/uL Normal 1.00-4.8 [facility] Comment on above: Performed By: #### C BC, CMP #### [facility] [address] Lymphocytes/100 WBC (Bld) 34.2 % Normal . [facility] Comment on above: Performed By: #### C BC, CMP #### [facility] [address] MCH (RBC) [Entitic mass] 32.1 pg Normal 24.7-34.3 [facility] Comment on above: Performed By: #### C BC, CMP #### [facility] [address] MCV (RBC) [Entitic vol] 96.4 fL Normal 80-100 [facility] Comment on above: Performed By: #### C BC, CMP #### [facility] [address] Mean Corpuscular HGB Conc 33.3 g/dL Normal 32.0-35.0 [facility] Comment on above: Performed By: #### C BC, CMP #### [facility] [address] [place] [address] [place] Monocytes (Bld) [#/Vol] 0.6 10*3/uL Normal 0.0-0.8 [facility] Comment on above: Performed By: #### C BC, CMP #### [facility] [address] [place] [address] [place] Monocytes/100 WBC (Bld) 10.7 % Normal . [facility] Comment on above: Performed By: #### C BC, CMP #### [facility] [address] [place] [address] [place] Neutrophils (Bld) [#/Vol] 3.0 10*3/uL Normal 1.8-7.7 [facility] Comment on above: Performed By: #### C BC, CMP #### [facility] [address] [place] [id number] [place] Neutrophils/100 WBC (Bld) 52.5 % Normal . [facility] Comment on above: Performed By: #### C BC, CMP #### [facility] [address] NRBC% 0.2 /100{WBC} Normal 0-0.5 [facility] Comment on above: Performed By: #### C BC, CMP #### [facility] [address] Platelet mean volume (Bld) [Entitic vol] 8.5 fL Normal 6.3-10.7 [facility] Comment on above: Performed By: #### C BC, CMP #### [facility] [address] [place] [address] [place] Platelets (Bld) [#/Vol] 273 10*3/uL Normal 150-450 [facility] Comment on above: Performed By: #### C BC, CMP #### [facility] [address] [place] [id number] [place] RBC (Bld) [#/Vol] 4.25 10*6/uL Normal 3.60-5.00 [facility] Comment on above: Performed By: #### C BC, CMP #### [facility] [address] [place] [id number] [place] WBC (Bld) [#/Vol] 5.7 10*3/uL Normal 3.8-11.6 [facility] Comment on above: Performed By: #### C BC, CMP #### [facility] [address] [place] [id number] [place] Comprehensive Metabolic Pane callie 05-01-2022 Albumin [Mass/Vol] 4.0 g/dL Normal 3.2-5.5 [facility] Comment on above: Performed By: #### C BC, CMP #### [address] Albumin/Globulin [Mass ratio] 1.7 {ratio} Normal [facility] Comment on above: Performed By: #### C BC, CMP #### [address] ALP [Catalytic activity/Vol] 46 U/L Normal 32-92 [facility] Comment on above: Result Comment: PERF ORMED BY: [place] [address] PATHOLOGIST PATENT LITIGATION ASSOCIATE ARUNA CODY M.D. Performed By: #### C BC, CMP #### [address] ALT [Catalytic activity/Vol] 29 U/L Normal 10-60 [facility] Comment on above: Performed By: #### C BC, CMP #### [address] Anion gap [Moles/Vol] 11.6 mmol/L Normal 6.0-15.0 [facility] Comment on above: Performed By: #### C BC, CMP #### [address] AST [Catalytic activity/Vol] 27 U/L Normal 10-42 [facility] Comment on above: Performed By: #### C BC, CMP #### [address] Bilirubin [Mass/Vol] 0.4 mg/dL Normal 0.3-1.2 [facility] Comment on above: Performed By: #### C BC, CMP #### [address] Calcium [Mass/Vol] 9.8 mg/dL Normal 8.2-10.2 [facility] Comment on above: Performed By: #### C BC, CMP #### [address] [address] [place] Chloride [Moles/Vol] 97 mmol/L Normal 95-114 [facility] [facility] Comment on above: Performed By: #### C BC, CMP #### [facility] [address] CO2 [Moles/Vol] 28.4 mmol/L Normal 22.0-30.0 [facility] Comment on above: Performed By: #### C BC, CMP #### [address] Creatinine [Mass/Vol] 0.50 mg/dL Normal 0.44-1.03 [facility] Comment on above: Performed By: #### C BC, CMP #### [address] Estimated GFR ( Maria Fernanda > 60 [facility] Comment on above: Result Comment: GFR estimated reference range: According to KDOQI guidelines, <60 ml/min/1.73m2 is sufficient to diagnose a patient with chronic kidney disease. Performed By: #### C BC, CMP #### [address] Estimated GFR (Non- Am > 60 [facility] Comment on above: Performed By: #### C BC, CMP #### [address] Globulin (S) [Mass/Vol] 2.4 g/dL Normal [facility] Comment on above: Performed By: #### C BC, CMP #### [address] Glucose [Mass/Vol] 96 mg/dL Normal 70-100 [facility] Comment on above: Result Comment: Jones Glucose Reference Range is dependent on time and content of last meal. Glucose of more than 200 mg/dL in a nonstressed, ambulatory subject supports the diagnosis of Diabetes Mellitus. ADA recommended reference range Performed By: #### C BC, CMP #### [address] Potassium [Moles/Vol] 4.0 mmol/L Normal 3.5-5.1 [facility] Comment on above: Performed By: #### C BC, CMP #### [facility] [address] Protein [Mass/Vol] 6.4 g/dL Normal 6.1-7.9 [facility] Comment on above: Performed By: #### C BC, CMP #### [facility] [address] Sodium [Moles/Vol] 133 mmol/L Low 136-146 [facility] Comment on above: Performed By: #### C BC, CMP #### [facility] [address] Urea nitrogen [Mass/Vol] 15 mg/dL Normal 9-23 [facility] Comment on above: Performed By: #### C BC, CMP #### [facility] [address] Creatinine and Glomerular fi ltration rate.predicted panel (S/P/Bld)Ordered By: Regina Biggs on 05-01-2022 Creatinine [Mass/Vol] 0.50 mg/dL 0.44-1.03 [facility] ECG 12 lead ECGon 05-01-2022 ECG 12 lead ECG [facility] [place] [address] [place] [address] Electrocardiograph Report Signed Patient: Parth Powers MR#: [id number] 80 : 1955 Acct:[id number] Age/Sex: 66 / F ADM Date: 05/01/22 Loc: Room: Type: [facility] Attending Dr: Regina Biggs MD Ordering Provider: Regina Biggs MD Date of Service: 05/01/22 ECG/ECG 12 lead ECG: see order Copies to: Test Reason : Blood Pressure : / mmHG Vent. Rate : 082 BPM Atrial Rate : 082 BPM P-R Int : 178 ms QRS Dur : 078 ms QT Int : 338 ms P-R-T Axes : 022 -02 047 degrees QTc Int : 394 ms Normal sinus rhythm Possible Left atrial enlargement Minimal voltage criteria for LVH, may be normal variant Borderline ECG No previous ECGs available Confirmed by STACEY COYNE MD ([id number]) on 05/02/2022 9:30:21 AM Referred By: Electronically Signed By:STACEY COYNE MD Transcribed By: MUS Signed By Stacey Conye MD 0930 Normal [facility] Eosinophils Auto (Bld) [#/Vo l]Ordered By: Regina Biggs on 05-01-2022 Eosinophils (Bld) [#/Vol] 0.1 10*3/uL 0.0-0.45 [facility] Eosinophils/100 WBC Auto (Bl d)Ordered By: Regina Biggs on 05-01-2022 Eosinophils/100 WBC (Bld) 2.1 % . [facility] Erythrocyte distribution wid th Auto (RBC) [Ratio]Ordered By: Regina Biggs on 05-01-2022 Erythrocyte distribution width (RBC) [Ratio] 14.6 % 11.9-15.3 [facility] Estimated glomerular filtrat ion rate (GFR) non- AmericanOrdered By: Regina Biggs on 05-01-2022 GFR/1.73 sq M.predicted among non-blacks MDRD (S/P/Bld) [Vol rate/Area] > 60 mL/Min [facility] Globulin Calc (S) [Mass/Vol] Ordered By: Regina Biggs on 05-01-2022 Globulin (S) [Mass/Vol] 2.4 g/dL [facility] Hematocrit Auto (Bld) [Volum e fraction]Ordered By: Regina Biggs on 05-01-2022 Hematocrit (Bld) [Volume fraction] 41.0 % 34.0-46.4 [facility] Hemoglobin [Mass/volume] in BloodOrdered By: Regina Biggs on 05-01-2022 Hemoglobin (Bld) [Mass/Vol] 13.6 g/dL 11.8-15.4 [facility] Leukocytes [#/volume] correc camilo for nucleated erythrocytes in Blood by Automated counOrdered By: Regina Biggs on 05-01-2022 WBC corrected for nucl RBC Auto (Bld) [#/Vol] 5.7 10*3/uL 3.8-11.6 [facility] Lymphocytes Auto (Bld) [#/Vo l]Ordered By: Regina Biggs on 05-01-2022 Lymphocytes (Bld) [#/Vol] 1.9 10*3/uL 1.00-4.8 [facility] Lymphocytes/100 WBC Auto (Bl d)Ordered By: Regina Biggs on 05-01-2022 Lymphocytes/100 WBC (Bld) 34.2 % . [facility] MCH Auto (RBC) [Entitic mass ]Ordered By: Regina Biggs on 05-01-2022 MCH (RBC) [Entitic mass] 32.1 pg 24.7-34.3 [facility] MCHC Auto (RBC) [Mass/Vol]Or dered By: Regina Biggs on 05-01-2022 MCHC (RBC) [Mass/Vol] 33.3 g/dL 32.0-35.0 [facility] MCV Auto (RBC) [Entitic vol] Ordered By: Regina Biggs on 05-01-2022 MCV (RBC) [Entitic vol] 96.4 fL 80-100 [facility] Monocytes Auto (Bld) [#/Vol] Ordered By: Regina Biggs on 05-01-2022 Monocytes (Bld) [#/Vol] 0.6 10*3/uL 0.0-0.8 [facility] Monocytes/100 WBC Auto (Bld) Ordered By: Regina Biggs on 05-01-2022 Monocytes/100 WBC (Bld) 10.7 % . [facility] Neutrophils Auto (Bld) [#/Vo l]Ordered By: Regina Biggs on 05-01-2022 Neutrophils (Bld) [#/Vol] 3.0 10*3/uL 1.8-7.7 [facility] Neutrophils/100 WBC Auto (Bl d)Ordered By: Regina Biggs on 05-01-2022 Neutrophils/100 WBC (Bld) 52.5 % . [facility] No Panel InformationOrdered By: Regina Biggs on 05-01-2022 Estimated GFR () > 60 mL/Min [facility] Comment on above: GFR estimated refere nce range: According to KDOQI guidelines, <60 ml/min/1.73m2 is sufficient to diagnose a patient with chronic kidney disease. Pharmacy Creatinine Clearance (Chem N/A [facility] Nucleated erythrocytes [Pres ence] in Blood by Automated countOrdered By: Regina Biggs on 05-01-2022 Nucleated RBC Auto Ql (Bld) 0.2 /100{WBC} 0-0.5 [facility] Platelet mean volume Auto (B ld) [Entitic vol]Ordered By: Regina Biggs on 05-01-2022 Platelet mean volume (Bld) [Entitic vol] 8.5 fL 6.3-10.7 [facility] Platelets Auto (Bld) [#/Vol] Ordered By: Regina Biggs on 05-01-2022 Platelets (Bld) [#/Vol] 273 10*3/uL 150-450 [facility] Protein [Mass/volume] in Ser um or PlasmaOrdered By: Regina Biggs on 05-01-2022 Protein [Mass/Vol] 6.4 g/dL 6.1-7.9 [facility] RBC Auto (Bld) [#/Vol]Ordere d By: Regina Biggs on 05-01-2022 RBC (Bld) [#/Vol] 4.25 10*6/uL 3.60-5.00 [facility] Serum or plasma alanine palumbo otransferase measurement without P-5'-P (enzymatic activiOrdered By: Regina Biggs on 05-01-2022 ALT No additional P-5'-P [Catalytic activity/Vol] 29 U/L 10-60 [facility] Serum or plasma albumin/glob ulin mass ratioOrdered By: Regina Biggs on 05-01-2022 Albumin/Globulin [Mass ratio] 1.7 {ratio} [facility] Serum or plasma alkaline juan sphatase measurement (enzymatic activity/volume)Ordered By: Regina Biggs on 05-01-2022 ALP [Catalytic activity/Vol] 46 U/L 32-92 [facility] Serum or plasma anion gap de terminationOrdered By: Regina Biggs on 05-01-2022 Anion gap [Moles/Vol] 11.6 mmol/L 6.0-15.0 [facility] Serum or plasma aspartate am inotransferase measurement (enzymatic activity/volume)Ordered By: Regina Biggs on 05-01-2022 AST [Catalytic activity/Vol] 27 U/L 10-42 [facility] Serum or plasma calcium gisele urement (mass/volume)Ordered By: Regina Biggs on 05-01-2022 Calcium [Mass/Vol] 9.8 mg/dL 8.2-10.2 [facility] Serum or plasma chloride christiane surement (moles/volume)Ordered By: Regina Biggs on 05-01-2022 Chloride [Moles/Vol] 97 mmol/L 95-114 [facility] Serum or plasma glucose gisele urement (mass/volume)Ordered By: Regina Biggs on 05-01-2022 Glucose [Mass/Vol] 96 mg/dL 70-100 [facility] Comment on above: ADA recommended refe rence rangeRandom Glucose Reference Range is dependent on time and content of last meal. Glucose of more than 200 mg/dL in a nonstressed, ambulatory subject supports the diagnosis of Diabetes Mellitus. Serum or plasma potassium me asurement (moles/volume)Ordered By: Regina Biggs on 05-01-2022 Potassium [Moles/Vol] 4.0 mmol/L 3.5-5.1 [facility] Serum or plasma sodium measu rement (moles/volume)Ordered By: Regina Biggs on 05-01-2022 Sodium [Moles/Vol] 133 mmol/L 136-146 [facility] Serum or plasma total biliru bin measurement (mass/volume)Ordered By: Regina Biggs on 05-01-2022 Bilirubin [Mass/Vol] 0.4 mg/dL 0.3-1.2 [facility] Serum or plasma total carbon dioxide measurement (moles/volume)Ordered By: Regina Biggs on 05-01-2022 CO2 [Moles/Vol] 28.4 mmol/L 22.0-30.0 [facility] Serum or plasma urea nitroge n measurement (mass/volume)Ordered By: Regina Biggs on 05-01-2022 Urea nitrogen [Mass/Vol] 15 mg/dL 01-04 [facility] WBC Auto (Bld) [#/Vol]Ordere d By: Regina Biggs on 05-01-2022 WBC (Bld) [#/Vol] 5.7 10*3/uL 3.8-11.6 [facility] XR chest 2V*on 05-01-2022 XR chest 2V* [facility] [place] [address] [place] [address] XRay Report Signed Patient: Parth Powers MR#: [id number] 80 : 1955 Acct:[id number] Age/Sex: 66 / F ADM Date: 05/01/22 Loc: Room: Type: [facility] Attending Dr: Regina Biggs MD Copies to: Regina Biggs MD Ordering Provider: Regina Biggs MD Date of Service: 05/01/22 XR/XR chest 2V*: H02.403 XR chest 2V* 05/01/2022 4:23 PM SIGNS AND SYMPTOMS: H02.403 PROTOCOL: Frontal and lateral radiographs of the chest COMPARISON: None FINDINGS: The trachea is midline. The heart and mediastinal structures are within normal limits. The lung parenchyma is clear. The bony thorax is intact. Degenerative changes are noted in the thoracic spine. There is a dextro convex curvature. XR/XR chest 2V* IMPRESSION: No acute cardiopulmonary pathology. Impression dictated by: Chilango Case M.D.05/01/2022 4:55 PM Dictation Location: [place] [address] Transcribed By: [facility] 05/01/221654 Dictated By: Chilango Case II, MD 05/01/221654 Signed By: 05/01/221654 Normal [facility] Covid-19 PCR (CVDTBH)on 03-16 SARS-CoV-2 (COVID-19) RNA DOUG+probe Ql (Unsp spec) Not detected Normal NOT DETECTED [facility] Comment on above: Result Comment: This test is not yet approved or cleared by the [place] FDA. When there are no FDA-approved or cleared tests available, and other criteria are met, FDA can make tests available under an emergency access mechanism called an Emergency Use Authorization (EUA). The EUA for this test is supported by the Dietitian Consultant of Health and Human Service's (HHS's) declaration that circumstances exist to justify the emergency use of in vitro diagnostics for the detection and/or diagnosis of the virus that causes COVID-19. This EUA will remain in effect (meaning this test can be used) for the duration of the COVID-19 declaration justifying emergency of IVDs, unless it is terminated or revoked by FDA (after which the test may no longer be used). When diagnostic testing is negative, the possibility of a false negative should be considered in the context of a patient's recent exposures and the presence of clinical signs and symptoms consistent with SARS-CoV-2. Performed By: #### C VDTB #### [facility] [address] [place] [address] Dr. Man Ortiz XR LSPINE MIN 4 VIEWSon XR LSPINE MIN 4 VIEWS EXAMINATION: XR LSPINE MIN 4 VIEWS HISTORY: Lumbar radiculopathy COMPARISON: No relevant comparison available. FINDINGS: BONES: 4 mm anterolisthesis of L4 in relation L5. Mild to moderate degenerative spondylosis and facet osteophyte arthropathy DISC SPACES: Normal. No significant disc height narrowing, subluxation, or endplate abnormality. PARASPINOUS: Negative. No paraspinous abnormality is seen. OTHER: Negative. IMPRESSION: Mild degenerative changes 4 mm anterolisthesis of L4 and L5 Electronically authenticated by: GILLES JIMENEZ Date: 2021-12-19 18:42 Normal [facility] CBC AUTO DIFFon 11-12-2021 BASO # 0.0 103/ul Normal 0.0-0.1 [facility] Comment on above: Performed By: #### C BC #### [facility] [address] [place] [address] Dr. Man Ortiz Basophils/100 WBC (Bld) 0.4 % Normal 0.2-2.0 [facility] Comment on above: Performed By: #### C BC #### [facility] [address] [place] [address] Dr. Man Ortiz EO # 0.1 103/ul Normal 0.0-0.7 [facility] Comment on above: Performed By: #### C BC #### [facility] [address] [place] [address] Dr. Man Ortiz Eosinophils/100 WBC (Bld) 1.6 % Normal 0.9-7.0 [facility] Comment on above: Performed By: #### C BC #### [facility] [address] [place] [address] Dr. Man Ortiz Erythrocyte distribution width (RBC) [Ratio] 15.1 % Critically high 11.0-15.0 [facility] Comment on above: Performed By: #### C BC #### [facility] [address] [place] [address] Dr. Man Ortiz Hematocrit (Bld) [Volume fraction] 37.8 % Normal 36.0-48.0 [facility] Comment on above: Performed By: #### C BC #### [facility] [address] [place] [address] Dr. Man Ortiz Hemoglobin (Bld) [Mass/Vol] 12.8 g/dL Normal 12.0-16.0 [facility] Comment on above: Performed By: #### C BC #### [facility] [address] [place] [address] Dr. Man Ortiz IG # 0.02 10e3/ul Normal 0.00-0.03 [facility] Comment on above: Performed By: #### C BC #### [facility] [address] [place] [address] Dr. Man Ortiz IG % 0.4 % Normal 0.0-0.5 [facility] Comment on above: Performed By: #### C BC #### [facility] [address] [place] [address] Dr. Man Ortiz LYMPH # 0.6 103/ul Critically low 1.2-3.8 [facility] Comment on above: Performed By: #### C BC #### [facility] [address] [place] [address] [address] Man Ortiz Lymphocytes/100 WBC (Bld) 12.0 % Critically low 20.5-60.0 [facility] Comment on above: Performed By: #### C BC #### [facility] [address] [place] [address] Dr. Man Ortiz MANUAL DIFF REQ NO Normal [facility] Comment on above: Performed By: #### C BC #### [facility] [address] [place] [address] [address] Man Ortiz MCH (RBC) [Entitic mass] 32.7 pg Normal 26.7-34.0 [facility] Comment on above: Performed By: #### C BC #### [facility] [address] [place] [address] Dr. Man Ortiz MCHC (RBC) [Mass/Vol] 33.9 g/dL Normal 29.9-35.2 [facility] Comment on above: Performed By: #### C BC #### [facility] [address] [place] [address] Dr. Man Ortiz MCV (RBC) [Entitic vol] 96.7 fL Normal 81.0-99.0 [facility] Comment on above: Performed By: #### C BC #### [facility] [address] [place] [address] Dr. Man Ortiz MONO # 0.7 103/ul Normal 0.3-0.8 [facility] Comment on above: Performed By: #### C BC #### [facility] [address] [place] [address] Dr. Man Ortiz Monocytes/100 WBC (Bld) 14.9 % Critically high 1.7-12. 0 [facility] Comment on above: Performed By: #### C BC #### [facility] [address] [place] [address] Dr. Man Ortiz NEUT # 3.5 103/ul Normal 1.4-6.5 [facility] Comment on above: Performed By: #### C BC #### [facility] [address] [place] [address] Dr. Man Ortiz Neutrophils/100 WBC (Bld) 70.7 % Normal 43.0-75.0 [facility] Comment on above: Performed By: #### C BC #### [facility] [address] [place] [address] [address] Man Ortiz Platelet mean volume (Bld) [Entitic vol] 9.8 fL Normal 9.5-13.5 [facility] Comment on above: Performed By: #### C BC #### [facility] [address] [place] [address] [address] Man Ortiz PLT 232 103/ul Normal 150-450 [facility] Comment on above: Performed By: #### C BC #### [facility] [address] [place] [address] [address] Man Ortiz RBC 3.91 106/ul Critically low 4.20-5.40 [facility] Comment on above: Performed By: #### C BC #### [facility] [address] [place] [address] [address] Man Ortiz WBC 5.0 103/ul Normal 4.0-11.0 [facility] Comment on above: Performed By: #### C BC #### [facility] [address] [place] [address] [address] Man Ortiz GLYCOHEMOGLOBIN A1Con 2021 ADA RECOMMENDATION SEE BELOW Normal [facility] Comment on above: Result Comment: ADA RECOMMENDED LIMIT 4.0 - 6.0 ADA THERAPEUTIC TARGET < 7.0 ACTION SUGGESTED > 7.0 Performed By: #### A 1C ####[facility] [address] [place] [address]Dr. Man Ortiz Glucose [Mass/Vol] 134 mg/dL Normal [facility] Comment on above: Performed By: #### A 1C ####[facility] [address] [place] [id number]. Man Ortiz HbA1c (Bld) [Mass fraction] 6.3 % Critically high 4.5-6.2 [facility] Comment on above: Performed By: #### A 1C ####[facility] [address] [place], [place] [address]Ti. Man Ortiz LIPID PROFILEon 11-12-2021 CHOL-HDL RATIO NORM SEE BELOW Normal [facility] Comment on above: Result Comment: 3.3 - 4.4 LOW RISK 4.4 - 7.1 AVERAGE RISK 7.1 - 11.0 MODERATE RISK >11.0 HIGH RISK Performed By: #### C MP, LIPID ####[facility] [address] [place], [place] [address]Wg. Man Ortiz Cholesterol [Mass/Vol] 233 mg/dL Critically high <=200 [facility] Comment on above: Performed By: #### C MP, LIPID ####[facility] [address] [place], [place] [address]Ka. Man Ortiz Cholesterol in HDL [Mass/Vol] 61 mg/dL Critically high 40-60 [facility] Comment on above: Performed By: #### C MP, LIPID ####[facility] [address] [place], [place] [address]Rl. Man Angel Cholesterol in LDL [Mass/Vol] 123.6 mg/dL Normal [facility] Comment on above: Performed By: #### C MP, LIPID ####[facility] [address] [place], [place] [address]Bw. Man Ortiz Cholesterol.total/Mickie sterol in HDL [Mass ratio] 3.8 {ratio} Normal [facility] Comment on above: Performed By: #### C MP, LIPID ####[facility] [address] [place], [place] [address]Cf. Man Ortiz HDL NORMAL > or = 60 mg/dl - LOW CARDIOVASCULAR RISK <40 mg/dl - HIGH CARDIOVASCULAR RISK Normal [facility] Comment on above: Performed By: #### C MP, LIPID ####[facility] [address] [place], [place] [address]Kb. Man Ortiz LDL CALC NORMAL SEE BELOW Normal [facility] Comment on above: Result Comment: <100 mg/dl OPTIMAL 100 - 129 mg/dl NEAR OR ABOVE OPTIMAL 130 - 159 mg/dl BORDERLINE HIGH 160 - 189 mg/dl HIGH >190 mg/dl VERY HIGH Performed By: #### C MP, LIPID ####[facility] [address] [place] [address]Dr. Man Ortiz Triglyceride [Mass/Vol] 242 mg/dL Critically high <=150 [facility] Comment on above: Performed By: #### C MP, LIPID ####[facility] [address] [place] [address]Dr. Man Ortiz VLDL CALC 48.4 mg/dL Normal [facility] Comment on above: Performed By: #### C MP, LIPID ####[facility] [address] [place] [address]Dr. Man Ortiz PROF 14(COMP METB)on 022 Albumin [Mass/Vol] 3.7 g/dL Normal 3.4-5.0 [facility] Comment on above: Performed By: #### C MP, LIPID ####[facility] [address] [place] [address]Dr. Man Ortiz Albumin/Globulin [Mass ratio] 1.2 {ratio} Normal [facility] Comment on above: Performed By: #### C MP, LIPID ####[facility] [address] [place] [address]Dr. Man Ortiz ALP [Catalytic activity/Vol] 36 U/L Critically low 46-116 [facility] Comment on above: Performed By: #### C MP, LIPID ####[facility] [address] [place] [address]Dr. Man Ortiz ALT [Catalytic activity/Vol] 46 U/L Normal 14-59 [facility] Comment on above: Performed By: #### C MP, LIPID ####[facility] [address] [place] [id number]. Man Ortiz Anion gap [Moles/Vol] 13.5 mmol/L Normal [facility] Comment on above: Performed By: #### C MP, LIPID ####[facility] [address] [place] [address]Dr. Man Ortiz AST [Catalytic activity/Vol] 33 U/L Normal 15-37 [facility] Comment on above: Performed By: #### C MP, LIPID ####[facility] [address] [place] [id number]. Man Ortiz Bilirubin [Mass/Vol] 0.5 mg/dL Normal 0.2-1.0 [facility] Comment on above: Performed By: #### C MP, LIPID ####[facility] [address] [place] [id number]. Man Ortiz Calcium [Mass/Vol] 8.9 mg/dL Normal 8.5-10.1 [facility] Comment on above: Performed By: #### C MP, LIPID ####[facility] [address] [place] [address]Dr. Man Ortiz Chloride [Moles/Vol] 101 mmol/L Normal 98-107 [facility] Comment on above: Performed By: #### C MP, LIPID ####[facility] [address] [place], [place] [address]Dr. Man Ortiz CO2 [Moles/Vol] 28.5 mmol/L Normal 21.0-32.0 [facility] Comment on above: Performed By: #### C MP, LIPID ####[facility] [address] [place], [place] [address]Dr. Man Ortiz Creatinine [Mass/Vol] 0.62 mg/dL Normal 0.55-1.02 [facility] Comment on above: Performed By: #### C MP, LIPID ####[facility] [address] [place] [address]Dr. Man Angel EGFR-AF COLOMBIAN >60 Normal >=60 [facility] Comment on above: Performed By: #### C MP, LIPID ####[facility] [address] [place] [id number]. Man Angel EGFR-NON AF COLOMBIAN >60 Normal >=60 [facility] Comment on above: Performed By: #### C MP, LIPID ####[facility] [address] [place] [address]Dr. Man Ortiz Globulin (S) [Mass/Vol] 3.2 g/dL Normal [facility] Comment on above: Performed By: #### C MP, LIPID ####[facility] [address] [place] [id number]. Man Ortiz Glucose [Mass/Vol] 114 mg/dL Critically high 74-106 [facility] Comment on above: Performed By: #### C MP, LIPID ####[facility] [address] [place] [address]Dr. Man Ortiz Potassium [Moles/Vol] 4.0 mmol/L Normal 3.5-5.1 [facility] Comment on above: Performed By: #### C MP, LIPID ####[facility] [address] [place] [address]Dr. Man Ortiz Protein [Mass/Vol] 6.9 g/dL Normal 6.4-8.2 [facility] Comment on above: Performed By: #### C MP, LIPID ####[facility] [address] [place] [address]Dr. Man Ortiz Sodium [Moles/Vol] 139 mmol/L Normal 136-145 [facility] Comment on above: Performed By: #### C MP, LIPID ####[facility] [address] [place] [address]Dr. Man Ortiz Urea nitrogen [Mass/Vol] 12.0 mg/dL Normal 7.0-18.0 [facility] Comment on above: Performed By: #### C MP, LIPID ####[facility] [id number] [place] [address]Dr. Man Ortiz Urea nitrogen/Creatinine [Mass ratio] 19.4 mg/mg Normal [facility] Comment on above: Performed By: #### C MP, LIPID ####[facility] [id number] [address]Dr. Man Ortiz XR DEXA BONE DENSITYon 10-09 XR DEXA BONE DENSITY EXAMINATION: XR DEXA BONE DENSITY, 10/09/2021 9:59 AM EDT HISTORY: Menopause present COMPARISON: 2017, 2015 TECHNIQUE: Dual-energy X-ray absorptiometry (DEXA) bone density study performed for the axial skeleton. FINDINGS: Bone mineral density of the lumbar spine L1-L4 measures 0.986 g/sq cm. T score -1.6. Bone mineral density elevated due to degenerative spondylosis. WHO classification: Osteopenia Lowest bone mineral density is in the left femoral neck measuring 0.739 g/sq cm. T score -2.2. WHO classification: Osteopenia IMPRESSION: Osteopenia. Moderate fracture risk Electronically authenticated by: GILLES JIMENEZ Date: 2021-10-09 17:05 Normal [facility] PAP ACOG PANEL 2: 30 to 65on 09-08-2021 . . Normal [facility] Comment on above: Result Comment: Perf ormed at: BA Performed By: #### [id number] #### [facility] [address] [place] [address] Dr. Man Ortiz Age Gdln ACOG Testing Comment Normal [facility] Comment on above: Result Comment: <21 or >65 or no age provided Performed By: #### [id number] #### [facility] [address] [place] [address] Dr. Man Ortiz DIAGNOSIS: Comment Normal [facility] Comment on above: Result Comment: NEGA TIVE FOR INTRAEPITHELIAL LESION OR MALIGNANCY. CELLULAR CHANGES ASSOCIATED WITH ATROPHY ARE PRESENT. Performed at: BA Performed By: #### [id number] #### [facility] [address] [place] [address] Dr. Man Ortiz Methodology: Comment [facility] Comment on above: Result Comment: This liquid based ThinPrep(R) pap test was screened with the use of an image guided system. Performed at: WB Performed By: #### [id number] #### [facility] [address] [place] [address] Dr. Man Ortiz Note: Comment [facility] Comment on above: Result Comment: The Pap smear is a screening test designed to aid in the detection of premalignant and malignant conditions of the uterine cervix. It is not a diagnostic procedure and should not be used as the sole means of detecting cervical cancer. Both false-positive and false-negative reports do occur. . Performed at: WB Performed By: #### [id number] #### [facility] [address] [place] [address] Dr. Man Ortiz Performed by: Comment Normal [facility] Comment on above: Result Comment: Uvaldo Wood, Fisheries Manager (ASCP) Performed at: Performed By: #### [id number] #### [facility] [address] [address] [address] Man Ortiz Specimen adequacy: Comment Normal [facility] Comment on above: Result Comment: Sati sfactory for evaluation. Endocervical component may not be distinguished in cases of atrophy. Performed at: Performed By: #### [id number] #### [facility] [address] [address] [address] Man Ortiz XR hip RT min 2V(w/wo pelvis )*on 01-17-2021 XR hip RT min 2V(w/wo pelvis)* [facility] [employer] Other XR hip RT min 2V(w/wo pelvis)* [facility] [employer] Other XR hip RT min 2V(w/wo pelvis)* [address] [place] [address] [employer] Other XR hip RT min 2V(w/wo pelvis)* [place] [address] [employer] Other XR hip RT min 2V(w/wo pelvis)* XRay Report [employer] Other XR hip RT min 2V(w/wo pelvis)* Signed [employer] Other XR hip RT min 2V(w/wo pelvis)* Patient: Parth Powers MR#: [id number] [employer] Other XR hip RT min 2V(w/wo pelvis)* 80 [employer] Other XR hip RT min 2V(w/wo pelvis)* : 1955 Acct:[id number] [employer] Other XR hip RT min 2V(w/wo pelvis)* Age/Sex: 65 / F ADM Date: 01/17/21 [employer] Other XR hip RT min 2V(w/wo pelvis)* Loc: [facility] Room: Type: [facility] [employer] Other XR hip RT min 2V(w/wo pelvis)* Attending Dr: Stacey Vigil MD [employer] Other XR hip RT min 2V(w/wo pelvis)* Ordering Provider: Stacey Vigil MD [employer] Other XR hip RT min 2V(w/wo pelvis)* Date of Service: 01/17/21 [employer] Other XR hip RT min 2V(w/wo pelvis)* XR/XR hip RT min 2V(w/wo pelvis)*: Arthritis of right hip [employer] Other XR hip RT min 2V(w/wo pelvis)* Copies to: Stacey Vigil MD [employer] Other XR hip RT min 2V(w/wo pelvis)* XR hip RT min 2V(w/wo pelvis)* 01/17/2021 9:28 AM [employer] Other XR hip RT min 2V(w/wo pelvis)* SIGNS AND SYMPTOMS: Right leg weakness with pain in right groin [employer] Other XR hip RT min 2V(w/wo pelvis)* PROTOCOL: Frontal radiograph the pelvis with frontal and frog-leg views of the right hip [employer] Other XR hip RT min 2V(w/wo pelvis)* COMPARISON: None [employer] Other XR hip RT min 2V(w/wo pelvis)* FINDINGS: [employer] Other XR hip RT min 2V(w/wo pelvis)* There is enthesophyte formation of the greater trochanters bilaterally. The joint spaces of the [employer] Other XR hip RT min 2V(w/wo pelvis)* hips are preserved. The bony ring of the pelvis is grossly intact. Vascular calcifications are [employer] Other XR hip RT min 2V(w/wo pelvis)* present in the pelvis. There is no evidence of fracture or dislocation. [employer] Other XR hip RT min 2V(w/wo pelvis)* XR/XR hip RT min 2V(w/wo pelvis)* [employer] Other XR hip RT min 2V(w/wo pelvis)* IMPRESSION: [employer] Other XR hip RT min 2V(w/wo pelvis)* No fracture or dislocation. [employer] Other XR hip RT min 2V(w/wo pelvis)* No significant degenerative change within the joint spaces of the hips. [employer] Other XR hip RT min 2V(w/wo pelvis)* Impression dictated by: Chilango Case M.D.01/17/2021 1:00 PM [employer] Other XR hip RT min 2V(w/wo pelvis)* Dictation Location: [place] [address] [employer] Other XR hip RT min 2V(w/wo pelvis)* Transcribed By: GIOVANNY 01/17/21 1300 [employer] Other XR hip RT min 2V(w/wo pelvis)* Dictated By: Chilango Case II, MD 01/17/21 1259 [employer] Other XR hip RT min 2V(w/wo pelvis)* Signed By: [employer] Other XR hip RT min 2V(w/wo pelvis)* 01/17/21 1300 [employer] Other XR lumbar spine AP/LAT/FLX/E XTon 01-10-2021 XR lumbar spine AP/LAT/FLX/EXT [facility] [employer] Other XR lumbar spine AP/LAT/FLX/EXT [facility] [employer] Other XR lumbar spine AP/LAT/FLX/EXT [address] [place] [address] [employer] Other XR lumbar spine AP/LAT/FLX/[place] [address] [employer] Other XR lumbar spine AP/LAT/FLX/EXT XRay Report [employer] Other XR lumbar spine AP/LAT/FLX/EXT Signed [employer] Other XR lumbar spine AP/LAT/FLX/EXT Patient: Parth Powers MR#: [id number] [employer] Other XR lumbar spine AP/LAT/FLX/EXT 80 [employer] Other XR lumbar spine AP/LAT/FLX/EXT : 1955 Acct:[id number] [employer] Other XR lumbar spine AP/LAT/FLX/EXT Age/Sex: 65 / F ADM Date: 01/10/21 [employer] Other XR lumbar spine AP/LAT/FLX/EXT Loc: [facility] Room: Type: [facility] [employer] Other XR lumbar spine AP/LAT/FLX/EXT Attending Dr: Keith Gaspar DO [employer] Other XR lumbar spine AP/LAT/FLX/EXT Ordering Provider: Keith Gaspar DO [employer] Other XR lumbar spine AP/LAT/FLX/EXT Date of Service: 01/10/21 [employer] Other XR lumbar spine AP/LAT/FLX/EXT XR/XR lumbar spine AP/LAT/FLX/EXT: Pain of right lower [employer] Other XR lumbar spine AP/LAT/FLX/EXT extremity;Arthritis of right hip [employer] Other XR lumbar spine AP/LAT/FLX/EXT Copies to: Keith Gaspar, [employer] Other XR lumbar spine AP/LAT/FLX/EXT AP with lateral neutral, flexion extension views of the lumbar spine [employer] Other XR lumbar spine AP/LAT/FLX/EXT HISTORY: Continued RIGHT hip pain. [employer] Other XR lumbar spine AP/LAT/FLX/EXT COMPARISON:None [employer] Other XR lumbar spine AP/LAT/FLX/EXT Lumbar lordosis is adequate. [employer] Other XR lumbar spine AP/LAT/FLX/EXT No acute lumbar spine fracture is identified. [employer] Other XR lumbar spine AP/LAT/FLX/EXT 5 mm L4-5 degenerative anterolisthesis. Diffuse osteopenia. [employer] Other XR lumbar spine AP/LAT/FLX/EXT Multilevel disc space narrowing most prevalent the L3-4 level. Endplate spurring. Lower lumbar [employer] Other XR lumbar spine AP/LAT/FLX/EXT hypertrophic facet changes. No hypermobility with flexion and extension views. [employer] Other XR lumbar spine AP/LAT/FLX/EXT No paraspinal abnormality seen. [employer] Other XR lumbar spine AP/LAT/FLX/EXT SI joints are maintained. [employer] Other XR lumbar spine AP/LAT/FLX/EXT XR/XR lumbar spine AP/LAT/FLX/EXT [employer] Other XR lumbar spine AP/LAT/FLX/EXT IMPRESSION: No hypermobility. 5 mm L4-5 anterolisthesis. Diffuse osteopenia. Degenerative change. [employer] Other XR lumbar spine AP/LAT/FLX/EXT Impression dictated by: Tonio Ken M.D.01/10/2021 3:59 PM [employer] Other XR lumbar spine AP/LAT/FLX/EXT Dictation Location: [place] [address] [employer] Other XR lumbar spine AP/LAT/FLX/EXT Transcribed By: PWS 01/10/21 1559 [employer] Other XR lumbar spine AP/LAT/FLX/EXT Dictated By: Tonio Ken DO 01/10/21 1557 [employer] Other XR lumbar spine AP/LAT/FLX/EXT Signed By: [employer] Other XR lumbar spine AP/LAT/FLX/EXT 01/10/21 1553 [employer] Other [facility] DIAG[facility] LTon 11-20-19 19 [facility] * * *Final Report* * * * * * SEE BOTTOM OF REPORT FOR ADDENDED TEXT * * * DATE OF EXAM: Nov 19 2018 10:45AM [facility] 0621 - [facility] LT / PROCEDURE REASON: Abnormal findings on diagnostic imaging of breast * * * * Physician Interpretation * * * * RESULT: FINAL REPORT #[id number] - [facility] US BIOPSY BREAST LT #[id number] - [facility] STEREO BX BREAST LT #[id number] - [facility] DIAG[facility]STIC LT ULTRASOUND GUIDED BIOPSY LEFT BREAST WITH MARKING DEVICE INSERTED AND POST DIGITAL MAMMOGRAPHIC IMAGIN11/19/2018 HISTORY: Abnormal Findings On Diagnostic Imaging Of Breast This patient had a lumpectomy and radiation therapy and thereafter has had multiple biopsies yielding fat necrosis. Her breast tissue is painful and constantly changing, becoming more dense in areas making it difficult to determine malignancy from scarring/ more fat necrosis. There is an area in her upper outer left breast which became more dense. Attempted to biopsy by ultrasound recently but the clip did not correlate. Reattempted with ultrasound today (first biopsy -- coil clip). After that clip did not correlate exactly with the area of increased density, it was decided that we could attempt a stereotactic biopsy (after consultation with [place] technologists and the patient) to see if this was possible. The patient was then consented for the second biopsy and it was performed -- stop light clip placed. Pre and post fire images obtained. Biopsy recommended from original imaging 10/28/18 left diagnostic mammogram and ultrasound. Abnormal Findings On Diagnostic Imaging Of Breast/post clip Left stereotactic breast biopsy with stoplight clip placement and post procedure mammogram. PATIENT CONSENT: A time out was performed immediately prior to procedure start with the radiology team, correctly identifying the patient name, date of , procedure, anatomy (including marking of site and side), patient position, relevant diagnostic and radiology test results, safety precautions, and procedure-specific equipment needs. The procedure was explained to the patient including the risks, benefits and alternatives. Medications and allergies were also reviewed. The risks, including but not limited to infection and bleeding, were reviewed by the performing physician and the patient agreed to undergo the procedure. The radiologist and technologist were present throughout the entire procedure. Audible Time Out Time: 1019 Procedure Start Time: 1025 Procedure Stop Time: 1035 Dr. Musa performed the entire procedure without an daycare assistant. Correlation is made to exams dated: 10/28/2018 mammogram and 10/28/2018 ultrasound. An ultrasound guided biopsy using real-time ultrasound was performed for the concerning mass located in the left breast at 2 o'clock middle depth 8 cm from the nipple. This was described on the previous ultrasound report. The skin was prepped in the usual manner. Local anesthetic was administered to the access site. A skin pete was made in the breast. The abnormality was approached from the lateral aspect. A 14 gauge biopsy needle was placed adjacent to the abnormality through an introducer device under ultrasound guidance. Once the needle was documented to be in the correct location, four cores were obtained using an automated biopsy gun. The patient received additional local anesthetic during the procedure. A coil type clip was inserted into the biopsy cavity. A skin closure strip and a sterile dressing were applied to the access site. As a separate procedure in a separate room with a dedicated machine, post procedure digital mammographic imaging demonstrates the location device at the targeted area. The specimens were sent to the laboratory for pathological analysis. The post clip imaging shows that the clip is about 2.5 cm more superior and lateral than the mammographic area of intent. Therefore stereotactic biopsy also performed today. IMPRESSION: ULTRASOUND GUIDED BIOPSY BENIGN Ultrasound guided biopsy of the mass in the left breast at 2 o'clock middle depth 8 cm from the nipple was successful with no apparent post procedure complications. Pathology indicates benign fat necrosis (FN). Pathology results are concordant with imaging findings. STEREOTACTIC GUIDED BIOPSY LEFT BREAST USING VACUUM DEVICE WITH MARKING DEVICE INSERTED AND POST DIGITAL MAMMOGRAPHIC IMAGIN11/19/2018 PATIENT CONSENT: A time out was performed immediately prior to procedure start with the radiology team, correctly identifying the patient name, date of , procedure, anatomy (including marking of site and side), patient position, relevant diagnostic and radiology test results, safety precautions, and procedure-specific equipment needs. The procedure was explained to the patient including the risks, benefits and alternatives. Medications and allergies were also reviewed. The risks, including but not limited to infection and bleeding, were reviewed by the performing physician and the patient agreed to undergo the procedure. The radiologist and technologist were present throughout the entire procedure. Time out: 1130 Procedure start: 1132 Procedure end: 1139 Dr. Musa performed the entire procedure without an daycare assistant. Correlation is made to exams dated: 10/28/2018 mammogram and 10/28/2018 ultrasound. A stereotactic guided biopsy was performed for the concerning asymmetry located in the left breast upper outer aspect middle depth. This was described on the previous mammography report. The skin was prepped in the usual manner. Local anesthetic was administered to the access site. A skin pete was made in the breast. The abnormality was approached from the craniocaudal aspect using a prone table. A 9 gauge biopsy needle was placed adjacent to the abnormality under computer guidance and confirmatory stereotactic mammography images were obtained to document needle placement. Once the needle was documented to be in the correct location, eight cores were obtained using the [employer] system. The patient received additional local anesthetic during the procedure. A stop light clip was inserted into the biopsy cavity. A skin closure strip and a sterile dressing were applied to the access site. As a separate procedure in a separate room with a dedicated machine, post procedure digital mammographic imaging demonstrates the location device at the targeted area. The specimens were sent to the laboratory for pathological analysis. This stereotactic biopsy was definitely at the limits of the patient's pain tolerance and what the mammographic unit could penetrate to target due to density. Even with those limitations, it appears the biopsy was where it was intended, the clip is in the focal asymmetry in the left breast. IMPRESSION: STEREOTACTIC GUIDED BIOPSY BENIGN Stereotactic guided biopsy of the asymmetry in the left breast upper outer aspect middle depth was successful with no apparent post procedure complications. Pathology indicates benign fat necrosis (FN). Pathology results are concordant with imaging findings. Return to annual mammogram screening schedule is recommended. SUMMARY: The patient will be notified of her results by phone by Holly Bauman, Breast Imaging Department Nurse Navigator. This patient plans to discuss the possibility of mastectomy on the left with her doctors/ surgeon, for management of pain and extensive fat necrosis. Pathology results as follows: FINAL DIAGNOSIS 1. Left breast, 1 o'clock, middle depth, stoplight clip, stereotactic needle core biopsy (A) - Organizing fat necrosis. 2. Left breast, 2 o'clock, 8 cm from nipple, coil clip, ultrasound-guided needle core biopsy (B) - Organizing fat necrosis. Diana momin/clarissa:11/24/2018 16:19:03 Attending Technologist(s): Sima Blackmon, RT(R)(M), [facility] Head Shipper(s): Virginia Rodriguez, [facility]; Ana Clement, RT(R)(M), [facility] Multiple national specialty organizations have released breast cancer screening guidelines for women at average risk for developing breast cancer - guidelines that are based on both evidence and opinion, yet differ on when to start and how often to screen for breast cancer. With representation from Breast Imaging, Internal Medicine, Women's Health, Family Medicine, and Medical/Surgical Oncology, the [facility] has carefully reviewed the data and reached the following consensus: 1) All women should engage in shared decision-making with their providers to decide when to start and how often to screen; 2) All women should have the opportunity to start screening mammography at age 40; 3) For women ages 45-55, we recommend annual screening mammograms; 4) For women ages 55 and over, we support both the transition from an annual to a biennial interval if this aligns more with patient's values and preferences, or continuation with annual screening; 5) All women should discuss with their providers when to stop screening mammograms. Survey Crew Chief: Clarissa Transcribe Date/Time: Nov 19 2018 10:41A Dictated by: DIANA MUSA MD This examination was interpreted and the report reviewed and electronically signed by: DIANA MUSA MD on Nov 19 2018 4:47PM EST This document has been addended by: DIANA MUSA MD on Nov 24 2018 4:19PM EST [id number] Normal [facility] STEREO BX BREAST LTon [facility] STEREO BX BREAST LT * * *Final Repor t* * * * * * SEE BOTTOM OF REPORT FOR ADDENDED TEXT * * * DATE OF EXAM: Nov 19 2018 10:41AM [facility] 0630 - [facility] STEREO BX BREAST LT / PROCEDURE REASON: Abnormal findings on diagnostic imaging of breast * * * * Physician Interpretation * * * * RESULT: FINAL REPORT #[id number] - [facility] US BIOPSY BREAST LT #[id number] - [facility] STEREO BX BREAST LT #[id number] - [facility] DIAG[facility]IC LT ULTRASOUND GUIDED BIOPSY LEFT BREAST WITH MARKING DEVICE INSERTED AND POST DIGITAL MAMMOGRAPHIC IMAGIN11/19/2018 HISTORY: Abnormal Findings On Diagnostic Imaging Of Breast This patient had a lumpectomy and radiation therapy and thereafter has had multiple biopsies yielding fat necrosis. Her breast tissue is painful and constantly changing, becoming more dense in areas making it difficult to determine malignancy from scarring/ more fat necrosis. There is an area in her upper outer left breast which became more dense. Attempted to biopsy by ultrasound recently but the clip did not correlate. Reattempted with ultrasound today (first biopsy -- coil clip). After that clip did not correlate exactly with the area of increased density, it was decided that we could attempt a stereotactic biopsy (after consultation with [place] technologists and the patient) to see if this was possible. The patient was then consented for the second biopsy and it was performed -- stop light clip placed. Pre and post fire images obtained. Biopsy recommended from original imaging 10/28/18 left diagnostic mammogram and ultrasound. Abnormal Findings On Diagnostic Imaging Of Breast/post clip Left stereotactic breast biopsy with stoplight clip placement and post procedure mammogram. PATIENT CONSENT: A time out was performed immediately prior to procedure start with the radiology team, correctly identifying the patient name, date of , procedure, anatomy (including marking of site and side), patient position, relevant diagnostic and radiology test results, safety precautions, and procedure-specific equipment needs. The procedure was explained to the patient including the risks, benefits and alternatives. Medications and allergies were also reviewed. The risks, including but not limited to infection and bleeding, were reviewed by the performing physician and the patient agreed to undergo the procedure. The radiologist and technologist were present throughout the entire procedure. Audible Time Out Time: 1019 Procedure Start Time: 1025 Procedure Stop Time: 1035 Dr. Musa performed the entire procedure without an daycare assistant. Correlation is made to exams dated: 10/28/2018 mammogram and 10/28/2018 ultrasound. An ultrasound guided biopsy using real-time ultrasound was performed for the concerning mass located in the left breast at 2 o'clock middle depth 8 cm from the nipple. This was described on the previous ultrasound report. The skin was prepped in the usual manner. Local anesthetic was administered to the access site. A skin pete was made in the breast. The abnormality was approached from the lateral aspect. A 14 gauge biopsy needle was placed adjacent to the abnormality through an introducer device under ultrasound guidance. Once the needle was documented to be in the correct location, four cores were obtained using an automated biopsy gun. The patient received additional local anesthetic during the procedure. A coil type clip was inserted into the biopsy cavity. A skin closure strip and a sterile dressing were applied to the access site. As a separate procedure in a separate room with a dedicated machine, post procedure digital mammographic imaging demonstrates the location device at the targeted area. The specimens were sent to the laboratory for pathological analysis. The post clip imaging shows that the clip is about 2.5 cm more superior and lateral than the mammographic area of intent. Therefore stereotactic biopsy also performed today. IMPRESSION: ULTRASOUND GUIDED BIOPSY BENIGN Ultrasound guided biopsy of the mass in the left breast at 2 o'clock middle depth 8 cm from the nipple was successful with no apparent post procedure complications. Pathology indicates benign fat necrosis (FN). Pathology results are concordant with imaging findings. STEREOTACTIC GUIDED BIOPSY LEFT BREAST USING VACUUM DEVICE WITH MARKING DEVICE INSERTED AND POST DIGITAL MAMMOGRAPHIC IMAGIN11/19/2018 PATIENT CONSENT: A time out was performed immediately prior to procedure start with the radiology team, correctly identifying the patient name, date of , procedure, anatomy (including marking of site and side), patient position, relevant diagnostic and radiology test results, safety precautions, and procedure-specific equipment needs. The procedure was explained to the patient including the risks, benefits and alternatives. Medications and allergies were also reviewed. The risks, including but not limited to infection and bleeding, were reviewed by the performing physician and the patient agreed to undergo the procedure. The radiologist and technologist were present throughout the entire procedure. Time out: 1130 Procedure start: 1132 Procedure end: 1139 Dr. Musa performed the entire procedure without an daycare assistant. Correlation is made to exams dated: 10/28/2018 mammogram and 10/28/2018 ultrasound. A stereotactic guided biopsy was performed for the concerning asymmetry located in the left breast upper outer aspect middle depth. This was described on the previous mammography report. The skin was prepped in the usual manner. Local anesthetic was administered to the access site. A skin pete was made in the breast. The abnormality was approached from the craniocaudal aspect using a prone table. A 9 gauge biopsy needle was placed adjacent to the abnormality under computer guidance and confirmatory stereotactic mammography images were obtained to document needle placement. Once the needle was documented to be in the correct location, eight cores were obtained using the [employer] system. The patient received additional local anesthetic during the procedure. A stop light clip was inserted into the biopsy cavity. A skin closure strip and a sterile dressing were applied to the access site. As a separate procedure in a separate room with a dedicated machine, post procedure digital mammographic imaging demonstrates the location device at the targeted area. The specimens were sent to the laboratory for pathological analysis. This stereotactic biopsy was definitely at the limits of the patient's pain tolerance and what the mammographic unit could penetrate to target due to density. Even with those limitations, it appears the biopsy was where it was intended, the clip is in the focal asymmetry in the left breast. IMPRESSION: STEREOTACTIC GUIDED BIOPSY BENIGN Stereotactic guided biopsy of the asymmetry in the left breast upper outer aspect middle depth was successful with no apparent post procedure complications. Pathology indicates benign fat necrosis (FN). Pathology results are concordant with imaging findings. Return to annual mammogram screening schedule is recommended. SUMMARY: The patient will be notified of her results by phone by Holly Bauman, Breast Imaging Department Nurse Navigator. This patient plans to discuss the possibility of mastectomy on the left with her doctors/ surgeon, for management of pain and extensive fat necrosis. Pathology results as follows: FINAL DIAGNOSIS 1. Left breast, 1 o'clock, middle depth, stoplight clip, stereotactic needle core biopsy (A) - Organizing fat necrosis. 2. Left breast, 2 o'clock, 8 cm from nipple, coil clip, ultrasound-guided needle core biopsy (B) - Organizing fat necrosis. Diana momin/clarissa:11/24/2018 16:19:03 Attending Technologist(s): Sima Blackmon, RT(R)(M), [facility] Head Shipper(s): Virginia Rodriguez, [facility]; Ana Clement, RT(R)(M), [facility] Multiple national specialty organizations have released breast cancer screening guidelines for women at average risk for developing breast cancer - guidelines that are based on both evidence and opinion, yet differ on when to start and how often to screen for breast cancer. With representation from Breast Imaging, Internal Medicine, Women's Health, Family Medicine, and Medical/Surgical Oncology, the [facility] has carefully reviewed the data and reached the following consensus: 1) All women should engage in shared decision-making with their providers to decide when to start and how often to screen; 2) All women should have the opportunity to start screening mammography at age 40; 3) For women ages 45-55, we recommend annual screening mammograms; 4) For women ages 55 and over, we support both the transition from an annual to a biennial interval if this aligns more with patient's values and preferences, or continuation with annual screening; 5) All women should discuss with their providers when to stop screening mammograms. Survey Crew Chief: Clarissa Transcribe Date/Time: Nov 19 2018 10:41A Dictated by: DIANA MUSA MD This examination was interpreted and the report reviewed and electronically signed by: DIANA MUSA MD on Nov 19 2018 4:47PM EST This document has been addended by: DIANA MUSA MD on Nov 24 2018 4:19PM EST [id number] Normal [facility] US BIOPSY BREAST LTon [facility] US BIOPSY BREAST LT * * *Final Repor t* * * * * * SEE BOTTOM OF REPORT FOR ADDENDED TEXT * * * DATE OF EXAM: Nov 19 2018 10:42AM [facility] US BIOPSY BREAST LT / PROCEDURE REASON: Abnormal findings on diagnostic imaging of breast * * * * Physician Interpretation * * * * FINAL REPORT #[id number] - [facility] US BIOPSY BREAST LT #[id number] - [facility] STEREO BX BREAST LT #[id number] - [facility] DIAGNOSTIC LT ULTRASOUND GUIDED BIOPSY LEFT BREAST WITH MARKING DEVICE INSERTED AND POST DIGITAL MAMMOGRAPHIC IMAGIN11/19/2018 HISTORY: Abnormal Findings On Diagnostic Imaging Of Breast This patient had a lumpectomy and radiation therapy and thereafter has had multiple biopsies yielding fat necrosis. Her breast tissue is painful and constantly changing, becoming more dense in areas making it difficult to determine malignancy from scarring/ more fat necrosis. There is an area in her upper outer left breast which became more dense. Attempted to biopsy by ultrasound recently but the clip did not correlate. Reattempted with ultrasound today (first biopsy -- coil clip). After that clip did not correlate exactly with the area of increased density, it was decided that we could attempt a stereotactic biopsy (after consultation with [place] technologists and the patient) to see if this was possible. The patient was then consented for the second biopsy and it was performed -- stop light clip placed. Pre and post fire images obtained. Biopsy recommended from original imaging 10/28/18 left diagnostic mammogram and ultrasound. Abnormal Findings On Diagnostic Imaging Of Breast/post clip Left stereotactic breast biopsy with stoplight clip placement and post procedure mammogram. PATIENT CONSENT: A time out was performed immediately prior to procedure start with the radiology team, correctly identifying the patient name, date of , procedure, anatomy (including marking of site and side), patient position, relevant diagnostic and radiology test results, safety precautions, and procedure-specific equipment needs. The procedure was explained to the patient including the risks, benefits and alternatives. Medications and allergies were also reviewed. The risks, including but not limited to infection and bleeding, were reviewed by the performing physician and the patient agreed to undergo the procedure. The radiologist and technologist were present throughout the entire procedure. Audible Time Out Time: 1019 Procedure Start Time: 1025 Procedure Stop Time: 1035 Dr. Musa performed the entire procedure without an daycare assistant. Correlation is made to exams dated: 10/28/2018 mammogram and 10/28/2018 ultrasound. An ultrasound guided biopsy using real-time ultrasound was performed for the concerning mass located in the left breast at 2 o'clock middle depth 8 cm from the nipple. This was described on the previous ultrasound report. The skin was prepped in the usual manner. Local anesthetic was administered to the access site. A skin pete was made in the breast. The abnormality was approached from the lateral aspect. A 14 gauge biopsy needle was placed adjacent to the abnormality through an introducer device under ultrasound guidance. Once the needle was documented to be in the correct location, four cores were obtained using an automated biopsy gun. The patient received additional local anesthetic during the procedure. A coil type clip was inserted into the biopsy cavity. A skin closure strip and a sterile dressing were applied to the access site. As a separate procedure in a separate room with a dedicated machine, post procedure digital mammographic imaging demonstrates the location device at the targeted area. The specimens were sent to the laboratory for pathological analysis. The post clip imaging shows that the clip is about 2.5 cm more superior and lateral than the mammographic area of intent. Therefore stereotactic biopsy also performed today. IMPRESSION: ULTRASOUND GUIDED BIOPSY BENIGN Ultrasound guided biopsy of the mass in the left breast at 2 o'clock middle depth 8 cm from the nipple was successful with no apparent post procedure complications. Pathology indicates benign fat necrosis (FN). Pathology results are concordant with imaging findings. STEREOTACTIC GUIDED BIOPSY LEFT BREAST USING VACUUM DEVICE WITH MARKING DEVICE INSERTED AND POST DIGITAL MAMMOGRAPHIC IMAGIN11/19/2018 PATIENT CONSENT: A time out was performed immediately prior to procedure start with the radiology team, correctly identifying the patient name, date of , procedure, anatomy (including marking of site and side), patient position, relevant diagnostic and radiology test results, safety precautions, and procedure-specific equipment needs. The procedure was explained to the patient including the risks, benefits and alternatives. Medications and allergies were also reviewed. The risks, including but not limited to infection and bleeding, were reviewed by the performing physician and the patient agreed to undergo the procedure. The radiologist and technologist were present throughout the entire procedure. Time out: 1130 Procedure start: 1132 Procedure end: 1139 Dr. Musa performed the entire procedure without an daycare assistant. Correlation is made to exams dated: 10/28/2018 mammogram and 10/28/2018 ultrasound. A stereotactic guided biopsy was performed for the concerning asymmetry located in the left breast upper outer aspect middle depth. This was described on the previous mammography report. The skin was prepped in the usual manner. Local anesthetic was administered to the access site. A skin pete was made in the breast. The abnormality was approached from the craniocaudal aspect using a prone table. A 9 gauge biopsy needle was placed adjacent to the abnormality under computer guidance and confirmatory stereotactic mammography images were obtained to document needle placement. Once the needle was documented to be in the correct location, eight cores were obtained using the [employer] system. The patient received additional local anesthetic during the procedure. A stop light clip was inserted into the biopsy cavity. A skin closure strip and a sterile dressing were applied to the access site. As a separate procedure in a separate room with a dedicated machine, post procedure digital mammographic imaging demonstrates the location device at the targeted area. The specimens were sent to the laboratory for pathological analysis. This stereotactic biopsy was definitely at the limits of the patient's pain tolerance and what the mammographic unit could penetrate to target due to density. Even with those limitations, it appears the biopsy was where it was intended, the clip is in the focal asymmetry in the left breast. IMPRESSION: STEREOTACTIC GUIDED BIOPSY BENIGN Stereotactic guided biopsy of the asymmetry in the left breast upper outer aspect middle depth was successful with no apparent post procedure complications. Pathology indicates benign fat necrosis (FN). Pathology results are concordant with imaging findings. Return to annual mammogram screening schedule is recommended. SUMMARY: The patient will be notified of her results by phone by Holly Bauman, Breast Imaging Department Nurse Navigator. This patient plans to discuss the possibility of mastectomy on the left with her doctors/ surgeon, for management of pain and extensive fat necrosis. Pathology results as follows: FINAL DIAGNOSIS 1. Left breast, 1 o'clock, middle depth, stoplight clip, stereotactic needle core biopsy (A) - Organizing fat necrosis. 2. Left breast, 2 o'clock, 8 cm from nipple, coil clip, ultrasound-guided needle core biopsy (B) - Organizing fat necrosis. Diana momin/clarissa:11/24/2018 16:19:03 Attending Technologist(s): Sima Blackmon, RT(R)(M), [facility] Head Shipper(s): Virginia Rodriguez, [facility]; Ana Clement, RT(R)(M), [facility] Multiple national specialty organizations have released breast cancer screening guidelines for women at average risk for developing breast cancer - guidelines that are based on both evidence and opinion, yet differ on when to start and how often to screen for breast cancer. With representation from Breast Imaging, Internal Medicine, Women's Health, Family Medicine, and Medical/Surgical Oncology, the [facility] has carefully reviewed the data and reached the following consensus: 1) All women should engage in shared decision-making with their providers to decide when to start and how often to screen; 2) All women should have the opportunity to start screening mammography at age 40; 3) For women ages 45-55, we recommend annual screening mammograms; 4) For women ages 55 and over, we support both the transition from an annual to a biennial interval if this aligns more with patient's values and preferences, or continuation with annual screening; 5) All women should discuss with their providers when to stop screening mammograms. Survey Crew Chief: Clarissa Transcribe Date/Time: Nov 19 2018 10:41A Dictated by : DIANA MUSA MD This examination was interpreted and the report reviewed and electronically signed by: DIANA MUSA MD on Nov 19 2018 4:47PM EST This document has been addended by: DIANA MUSA MD on Nov 24 2018 4:19PM EST [id number] Normal [facility] SURGICAL PATHOLOGYon 019 SURGICAL PATHOLOGY Specimen originated from [facility] Specimen #: [id number] Submitting Physician: Diana Musa M.D. FINAL DIAGNOSIS 1. Left breast, 1 o'clock, middle depth, stoplight clip, stereotactic needle core biopsy (A) - Organizing fat necrosis. 2. Left breast, 2 o'clock, 8 cm from nipple, coil clip, ultrasound-guided needle core biopsy (B) - Organizing fat necrosis. CARIN/thai 11/20/[address] Dori Grossman has seen selected slides and concurs. Vickie Arboleda M.D. (Electronic Signature) SPECIMEN SUBMITTED A: LEFT STEREOTACTIC BREAST BIOPSY, 1:00 MIDDLE DEPTH, STOPLIGHT CLIP B: LEFT BREAST ULTRASOUND GUIDED, BIOPSY, 2:00 8CM FN, COIL CLIP CLINICAL DATA MASS, INCREASED DENSITY, FAT NECROSIS VS MALIGNANCY; 1.5CM IRREGULAR MASS SUSPICIOUS OF MALIGNANCY HISTORY OF BREAST CANCER GROSS DESCRIPTION A. Received in formalin labeled as Left breast are multiple segments of cylindrical tissue aggregating to 5.0 x 0.6 x 0.2 cm, romero-yellow and of a soft consistency. The specimen is removed from the patient at 11:39 AM. The specimen was placed in formalin 11/19/2018 at 11:43 AM. Totally submitted in formalin in two cassettes. Gross examination performed at [facility], [address] [place] [address] 11/19/2018 5:19:38 PM B. Received in formalin labeled as Left breast are multiple segments of cylindrical tissue aggregating to 2.5 x 0.8 x 0.2 cm, yellow-brown and of a soft consistency. The specimen is removed from the patient at 10:30 on 11/19/2018. The specimen was placed in formalin at 10:30 on 11/19/2018. Totally submitted in formalin in one cassette. Gross examination performed at [facility], [address] [place] [address] 11/19/2018 9:07:18 PM Date of Report: 11/20/2018 Date of Procedure: 11/19/2018 Date of Receipt: 11/19/2018 Submitted by: Diana Musa M.D. [facility] Diagnostic interpretation performed at [place] [address]. [place] Number: [id number] Normal [facility] Vital Signs Date Time Vital Sign Value Performing Clinician Facility 07-01-2023 14:01-0400 Body height 162.2 cm Gregg Blum MD Work Phone: [facility] 07-01-2023 14:01-0400 Body temperature 97.2 [degF] Gregg Blum MD Work Phone: [facility] 07-01-2023 14:01-0400 Body weight 78.4 kg Gregg Blum MD Work Phone: [facility] 07-01-2023 14:01-0400 Diastolic blood pressure 78 mm[Hg] Gregg Blum MD Work Phone: [facility] 07-01-2023 14:01-0400 Heart rate 90 /min Gregg Blum MD Work Phone: [facility] 07-01-2023 14:01-0400 Respiratory rate 16 /min Gregg Blum MD Work Phone: [facility] 07-01-2023 14:01-0400 SaO2% (BldA) [Mass fraction] 96 % Gregg Blum MD Work Phone: [facility] 07-01-2023 14:01-0400 Systolic blood pressure 130 mm[Hg] Gregg Blum MD Work Phone: [facility] 02-20-2023 11:45-0500 Body height 162.56 cm David Bolanos Other [facility] Other 02-20-2023 11:45-0500 Body mass index (BMI) [Ratio] 30.55 kg/m2 David Bolanos Other [facility] Other 02-20-2023 11:45-0500 Body weight 80.74 kg David Bolanos Other [facility] Other 02-20-2023 11:45-0500 Diastolic blood pressure 87 mm[Hg] David Bolanos Other [facility] Other 02-20-2023 11:45-0500 Systolic blood pressure 132 mm[Hg] David Bolanos Other [facility] Other 02-04-2023 13:45-0400 Body height 162.56 cm David Bolanos Other [facility] Other 02-04-2023 13:45-0400 Diastolic blood pressure 92 mm[Hg] David Bolanos Other [facility] Other 02-04-2023 13:45-0400 Systolic blood pressure 135 mm[Hg] David Bolanos Other [facility] Other 01-21-2023 14:30-0400 Body height 162.56 cm David Bolanos Other [facility] Other 01-21-2023 14:30-0400 Body mass index (BMI) [Ratio] 30.62 kg/m2 David Bolanos Other [facility] Other 01-21-2023 14:30-0400 Body weight 80.92 kg David Bolanos Other [facility] Other 01-21-2023 14:30-0400 Diastolic blood pressure 83 mm[Hg] David Bolanos Other [facility] Other 01-21-2023 14:30-0400 Systolic blood pressure 143 mm[Hg] David Bolanos Other [facility] Other 11-19-2022 11:30-0400 Body height 162.56 cm David Bolanos Other [facility] Other 11-19-2022 11:30-0400 Body mass index (BMI) [Ratio] 30.89 kg/m2 David Bolanos Other [facility] Other 11-19-2022 11:30-0400 Body weight 81.65 kg David Bolanos Other [facility] Other 11-19-2022 11:30-0400 Diastolic blood pressure 89 mm[Hg] David Bolanos Other [facility] Other 11-19-2022 11:30-0400 Systolic blood pressure 134 mm[Hg] David Bolanos Other [facility] Other 06-26-2022 10:30-0400 Body height 162.56 cm David Bolanos Other [facility] Other 06-26-2022 10:30-0400 Body mass index (BMI) [Ratio] 30.55 kg/m2 David Bolanos Other [facility] Other 06-26-2022 10:30-0400 Body weight 80.74 kg David Bolanos Other [facility] Other 06-26-2022 10:30-0400 Diastolic blood pressure 84 mm[Hg] David Bolanos Other [facility] Other 06-26-2022 10:30-0400 SaO2% (BldA) [Mass fraction] 97 % David Bolanos Other [facility] Other 06-26-2022 10:30-0400 Systolic blood pressure 126 mm[Hg] David Bolanos Other [facility] Other 2022 10:35-0500 Body height 162.2 cm Gregg Blum MD Work Phone: [facility] 2022 10:35-0500 Body temperature 97.81 [degF] Gregg Blum MD Work Phone: [facility] 2022 10:35-0500 Body weight 80.74 kg Gregg Blum MD Work Phone: [facility] 2022 10:35-0500 Diastolic blood pressure 74 mm[Hg] Gregg Blum MD Work Phone: [facility] 2022 10:35-0500 Heart rate 74 /min Gregg Blum MD Work Phone: [facility] 2022 10:35-0500 Respiratory rate 16 /min Gregg Blum MD Work Phone: [facility] 2022 10:35-0500 SaO2% (BldA) [Mass fraction] 97 % Gregg Blum MD Work Phone: [facility] 2022 10:35-0500 Systolic blood pressure 134 mm[Hg] Gregg Blum MD Work Phone: [facility] 06-06-2022 11:15-0500 Body height 162.56 cm David Bolanos Other [facility] Other 06-06-2022 11:15-0500 Body mass index (BMI) [Ratio] 30.72 kg/m2 David Bolanos Other [facility] Other 06-06-2022 11:15-0500 Body weight 81.19 kg David Bolanos Other [facility] Other 06-06-2022 11:15-0500 Diastolic blood pressure 88 mm[Hg] David Bolanos Other [facility] Other 06-06-2022 11:15-0500 SaO2% (BldA) [Mass fraction] 97 % David Bolanos Other [facility] Other 06-06-2022 11:15-0500 Systolic blood pressure 138 mm[Hg] David Bolanos Other [facility] Other 03-20-2021 15:45-0500 Body height 162.56 cm Stacey Vigil Other [facility] Other 03-20-2021 15:45-0500 Body mass index (BMI) [Ratio] 31.24 kg/m2 Stacey Vigil Other [facility] Other 03-20-2021 15:45-0500 Body weight 82.56 kg Stacey Vigil Other [facility] Other 01-10-2021 15:00-0400 Body height 162.56 cm Keith Gaspar Other [facility] Other 01-10-2021 15:00-0400 Body mass index (BMI) [Ratio] 30.89 kg/m2 Keith Gaspar Other [facility] Other 01-10-2021 15:00-0400 Body weight 81.65 kg Keith Gaspar Other [facility] Other Encounters Encounter Date Encounter Type Care Provider Facility Start: 08-26-2023 End: 08-27-2023 ambulatory Za Espinoza Facility:[facility] [employer] [facility] Start: 07-02-2023 ambulatory Unique Santos jay [facility] Work Phone: [facility] Start: 07-01-2023 End: 07-01-2023 ambulatory SELF Facility:[facility] Start: 07-01-2023 End: 07-01-2023 ambulatory Gregg Blum MD Work Phone: Hematology/Oncology Comment on above: Malignant neoplasm o f upper-outer quadrant of left breast in female, estrogen receptor negative (HCC) (Primary Dx) Start: 07-01-2023 End: 07-01-2023 Patient encounter procedure Gregg Blum MD Work Phone: [facility] Start: 05-05-2023 End: 05-06-2023 ambulatory Sandeep ARCHULETA Facility:[facility] Start: 04-24-2023 End: 04-24-2023 ambulatory JELENA CALIXTO Not Available Start: 02-25-2023 End: 02-25-2023 ambulatory David Bolanos Other [facility] Other Start: 02-25-2023 Telephone encounter David Bolanos [facility] Start: 02-20-2023 End: 02-20-2023 ambulatory David Bolanos Other [facility] Other Start: 02-20-2023 Office outpatient vi sit 25 minutes David Bolanos [facility] Start: 02-04-2023 (Televisit) Televisit David Persaud [facility] Start: 02-04-2023 End: 02-04-2023 ambulatory David Bolanos Other [facility] Other Start: 02-04-2023 Telephone encounter David Bolanos [facility] Start: 01-21-2023 End: 01-21-2023 ambulatory David Bolanos Other [facility] Other Start: 01-21-2023 Office outpatient vi sit 15 minutes David Bolanos [facility] Start: 11-27-2022 End: 11-27-2022 ambulatory David Bolanos Other [facility] Other Start: 11-27-2022 Telephone encounter David Bolanos [facility] Start: 11-19-2022 End: 11-19-2022 ambulatory David Bolanos Other [facility] Other Start: 11-19-2022 Patient encounter procedure David Bolanos [facility] Start: 08-05-2022 End: 08-05-2022 ambulatory David Bolanos Other [facility] Other Start: 08-05-2022 Telephone encounter David Bolanos [facility] Start: 07-31-[address] DAVID BOLANOS Facil ity:[facility] Start: 07-02-2022 End: 07-02-2022 ambulatory David Bolanos Other [facility] Other Start: 07-02-2022 Telephone encounter David Bolanos [facility] Start: 06-26-2022 End: 06-27-[address] DAVID BOLANOS [facility] [employer] Other Start: 06-26-2022 Office outpatient vi sit 15 minutes David Bolanos [facility] Start: 2022 End: 2022 ambulatory Gregg Blum MD Work Phone: Hematology/Oncology Comment on above: Malignant neoplasm o f upper-outer quadrant of left breast in female, estrogen receptor negative (HCC) (Primary Dx) Start: 2022 End: 2022 Patient encounter procedure Gregg Blum MD Work Phone: [facility] Start: 06-06-2022 End: 06-06-2022 ambulatory David Bolanos Other [facility] Other Start: 06-06-2022 Office outpatient vi sit 15 minutes [facility] [facility] [place] Start: 05-16-2022 End: 05-17-[address] EM SRENA . Facility:[facility] Start: 05-01-2022 End: 05-01-2022 ambulatory David Bolanos Facility:[facility] Start: 05-01-2022 End: 05-01-2022 ambulatory MD David Bolanos Work Phone: [facility] Work Phone: Start: 05-01-2022 End: 05-01-2022 Patient encounter procedure MD David Bolanos Work Phone: [facility] Work Phone: Start: 04-25-2022 Encounter for preprocedural laboratory examination DR EM SERNA . [facility] Start: 04-18-2022 End: 05-03-[address] EM SERNA . Facility:[facility] Start: 04-16-2022 End: 04-16-[address] EM SERNA . Facility:[facility] Start: 04-12-2022 End: 04-13-[address] EM SERNA . Facility:[facility] Start: 04-12-2022 End: 04-13-2022 Encounter for preprocedural laboratory examination DR EM SERNA . Facility:[facility] Start: 04-05-[address] EM SERNA . Faci lity:[facility] Start: 03-05-2022 End: 03-06-[address] EM SERNA . Facility:[facility] Start: 02-19-2022 End: 02-19-[address] EM SERNA . Facility:[facility] Start: 02-12-2022 End: 02-13-[address] EM SERNA . Facility:[facility] Start: 01-22-2022 End: 01-22-[address] EM SERNA . Facility:[facility] Start: 01-15-2022 End: 01-16-[address] EM SERNA . Facility:[facility] Start: 12-19-2021 End: 12-20-[address] DAVID BOLANOS Facility:[facility] Start: 12-19-2021 Adult health examination Radha Bolanos Other [facility] Other Start: 12-19-2021 Gynecological examination normal David Bolanos Other [facility] Other Start: 12-19-2021 Pre-procedure evalua tion check David Bolanos Other [facility] Other Start: 11-15-2021 Encounter for genera l adult medical examination without abnormal findings DR DAVID BOLANOS [facility] Start: 11-12-2021 End: 11-13-[address] DAVID BOLANOS Facility:[facility] Start: 11-12-2021 End: 11-13-2021 Encounter for general adult medical examination without abnormal findings DR DAVID BOLANOS Facility:[facility] Start: 10-09-2021 End: 10-10-[address] VANESSA TORRES . Facility:[facility] Start: 09-03-2021 End: 09-03-[address] DAVID BOLANOS Facility:[facility] Start: 05-10-2021 End: 05-10-2021 ambulatory Stacey Vigil Other [facility] Other Start: 05-10-2021 Office outpatient vi sit 15 minutes Stacey Musa [facility] Start: 03-22-2021 End: 03-22-2021 ambulatory Stacey Vigil Other [facility] Other Start: 03-22-2021 Telephone encounter Stacey Vigil [facility] Start: 03-21-2021 End: 03-21-2021 ambulatory Stacey Vigil Other [facility] Other Start: 03-21-2021 Telephone encounter Stacey Vigil [facility] Start: 03-20-2021 End: 03-20-2021 ambulatory Stacey Vigil Other [facility] Other Start: 03-20-2021 Office outpatient vi sit 15 minutes Stacey Cecilioemily [facility] Start: 02-27-2021 (Procedure) Short Stacey Cecilioemily [facility] Start: 02-27-2021 End: 02-27-2021 ambulatory Stacey Vigil Other [facility] Other Start: 01-17-2021 Office outpatient vi sit 25 minutes Stacey Musa [facility] Start: 01-10-2021 Office outpatient vi sit 15 minutes Keith Gaspar [facility] Procedures Date Procedure Procedure Detail Performing Clinician Start: 05-01-2022 Plain chest X-ray MD Kelle Bolanos Work Phone: Start: 07-20-2019 Screening for malign ant neoplasm of breast David Bolanos Other End: 08-11-2019 Depression screening David Bolanos Other Screening for malign ant neoplasm of breast David Bolanos Other Plan of Treatment Date Care Activity Detail Author Start: 05-10-2024 ambulatory Ambulatory Facility: [facility] Start: 04-14-2023 Advance Directive Discussion Advance Directive Discussion [facility] Start: 04-14-2023 Depression Assessment Depression Assessment [facility] Start: 12-13-2022 Influenza vaccination Influenza Vaccine (#1) [place] Start: 04-14-2022 ADVANCE DIRECTIVE DISCUSSION ADVANCE DIRECTIVE DISCUSSION [facility] Start: 04-14-2022 DEPRESSION ASSESSMENT DEPRESSION ASSESSMENT [facility] Start: 02-18-2022 DIABETES SCREEN DIABETES SCREEN [facility] Start: 02-18-2022 Diabetes Screening Diabetes Screening [facility] Start: 11-09-2021 Pneumococcal Vaccine: 65+ (2 of 2 - PCV) Pneumococcal Vaccine: 65+ (2 of 2 - PCV) [facility] Start: 11-09-2021 PNEUMOCOCCAL: 65+ (2 - PCV) PNEUMOCOCCAL: 65+ (2 - PCV) [facility] Start: 10-29-2019 Screening for malignant neoplasm of breast Mammogram Screening [facility] Start: 2018 BONE DENSITY BONE DENSITY [facility] Start: 2018 Screening for osteoporosis Bone Density Screening [facility] Start: 2013 RSV Vaccine (1 - 1-dose 60+ series) RSV Vaccine (1 - 1-dose 60+ series) [facility] Start: 1998 COLOGUARD (FIT-DNA) COLOGUARD (FIT-DNA) [facility] Start: 1998 Colonoscopy COLONOSCOPY [facility] Start: 1998 COLORECTAL CANCER SCREENING COLORECTAL CANCER SCREENING [facility] Start: [address] COLONOGRAPHY [facility] Start: 1998 FECAL OCCULT BLOOD FECAL OCCULT BLOOD [facility] Start: 1998 Lipid panel Lipid Screening [facility] Start: 1998 LIPID SCREEN LIPID SCREEN [facility] Start: 1998 Screening for malignant neoplasm of colon [facility] Start: 1998 SIGMOIDOSCOPY SIGMOIDOSCOPY [facility] Start: 1993 Mammography MAMMOGRAM [facility] Start: 1972 Urine microalbumin profile [facility] Start: 06-14-1971 HEPATITIS C SCREENING HEPATITIS C SCREENING [facility] Start: 06-14-1971 Hepatitis C screening Hepatitis C Screening [facility] Immunizations Immunization Date Immunization Notes Care Provider Nu sullivan 01-21-2023 influenza, high dose seasonal, preservative-free David Bolanos Other [facility] Other 07-30-2022 tetanus and diphther ia toxoids, adsorbed, preservative free, for adult use (5 Lf of tetanus toxoid and 2 Lf of diphtheria toxoid) David Bolanos Other [facility] Other 01-23-2022 COVID-19 Pfizer (Pediatric) David Bolanos Other [facility] Other 01-03-2022 influenza (aIIV4) vaccine, age 65+ yr, quadrivalent, PF (FLUAD QUAD) Gregg Blum MD Work Phone: [facility] 01-03-2022 influenza virus vaccine, split virus (incl. purified surface antigen) David Bolanos Other [facility] Other 01-03-2022 influenza virus vaccine, unspecified formulation Gregg Blum MD Work Phone: [facility] 01-22-2021 COVID-19 Vaccine Pfi zer - Documentation Purposes Only David Bolanos Other [facility] Other 01-10-2021 influenza virus vaccine, split virus (incl. purified surface antigen) David Bolanos Other [facility] Other 11-09-2020 pneumococcal polysaccharide vaccine, 23 valent Gregg Blum MD Work Phone: [facility] 07-19-2020 Kenalog -40 mg Keith Gaspar Other [facility] Other 06-16-2020 COVID-19 Vaccine Pfi zer - Documentation Purposes Only David Bolanos Other [facility] Other 05-26-2020 COVID-19 Vaccine Pfi zer - Documentation Purposes Only David Bolanos Other [facility] Other 03-07-2020 zoster vaccine recombinant Gregg Blum MD Work Phone: [facility] 12-21-2019 influenza virus vaccine, split virus (incl. purified surface antigen) David Bolanos Other [facility] [employer] Other 11-09-2019 pneumococcal conjuga te vaccine, 13 valent David Bolanos Other [facility] Other 11-09-2019 zoster vaccine recombinant Gregg Blum MD Work Phone: [facility] 02-14-2009 novel [id number], preservative-free, injectable Gregg Blum MD Work Phone: [facility] Payers Date Payer Category Payer Self-pay [id number] 2018 Medicare MEDICARE MEDICAR E A AND B [id number] 2018-Present [phone] [address] [address] [place] [address] Medicare [id number] 2018 Unknown TRANSAMERICA TRA NSAMERICA SUPPLEMENT [id number] 2018-Present [phone] [address] [place] [address] Indemnity [id number] 1959 Medicare [id number] 1959 Unknown [id number] 1953 Unknown [id number] [id number] 3 1953 Unknown [id number] 2.16.840.1.714335.3.579.2.59 3 1953 Unknown [id number] 2.16.840.1.875072.3.579.2.59 3 - Unknown [id number] 2.16.840.1.127144.3.579.2.59 3 1953 Unknown [id number] 2.16.840.1.124522.3.579.2.59 3 1953 Unknown [id number] 2.16.840.1.397092.3.579.2.59 3 1953 Unknown [id number] 2.16.840.1.190800.3.579.2.59 3 1953 Unknown [id number] 2.16.840.1.074281.3.579.2.59 3 1953 Unknown [id number] 2.16.840.1.340476.3.579.2.59 3 1953 Unknown [id number] 2.16.840.1.568349.3.579.2.59 3 1953 Unknown [id number] 2.16.840.1.845627.3.579.2.59 3 1953 Unknown [id number] 2.16.840.1.805501.3.579.2.59 3 1953 Unknown [id number] 2.16.840.1.480295.3.579.2.59 3 1953 Unknown [id number] 2.16.840.1.203320.3.579.2.59 3 1953 Unknown [id number] 2.16.840.1.198083.3.579.2.59 3 1953 Unknown [id number] 2.16.840.1.373611.3.579.2.59 3 1953 Unknown [id number] 2.16.840.1.892789.3.579.2.12 59 1953 Unknown [id number] 2.16.840.1.965832.3.579.2.72 7 1953 Unknown [id number] 2.16.840.1.099129.3.579.2.72 7 1953 Unknown [id number] 2.16.840.1.990207.3.579.2.72 7 Unknown [id number] 2.16.840.1.330362.19 Unknown [id number] 2.16.840.1.637895.3.579.2.53 1 Social History Date Type Detail Facility Start: 07-01-2023 [facility]igned At [facility] Start: 1955 Sex Assigned At Female [facility] Start: 03-19-2012 Tobacco smoking stat us TNIS Never smoked tobacco [facility] Start: 03-19-2012 Tobacco use and exposure Smokeless tobacco non-user [facility] Start: 06-14-2021 End: 07-01-2023 Alcohol intake Ex-drinker (finding) [facility] Start: 1955 Sex Assigned At [facility] Start: 07-01-2023 History of Social function [facility] Adult Depression Screening Assessment 0 [facility] Clinical Notes 01-10-2021 to 07-01-2023 Gregg Blum MD - 07/01/2023 6:39 AM EDT Note Date & Type Note Facility 07-01-2023 Note HNO ID: [id number] Author: GREGG BLUM MD Service: ? Author Type: Physician Type: Progress Notes Filed: 07/02/2023 06:32 Note Text: PATIENT NAME: Parth Powers DATE: 07/01/2023 PRIMARY CARE PHYSICIAN: David Bolanos MD OTHER PHYSICIANS: Dr. Dejesus, Dr. Tash Quesada, Dr. Serna (Pain Management) Portions of this encounter note have been copied from the note from 2022 and has been updated where appropriate, and reflect my current medical decision making from today. CC: This is a 68 year old female with a history of breast cancer, seen for scheduled follow-up. INTERIM HISTORY: Since the patient's last visit here she has had no significant medical changes. Overall she feels well with no particular complaints. She has noticed no changes in her chest wall. No unusual pain or other systemic symptoms. MEDICATIONS: aspirin, enteric coated (ASPIRIN, ENTERIC COATED) 81 mg EC tablet Take 81 mg by mouth once daily. cholecalciferol (VITAMIN D-3) 50 mcg (2,000 unit) tablet Take 2,000 Units by mouth once daily. ascorbic acid (VITAMIN C ORAL) Take by mouth once daily. glucosamine/chondroitin/C/Bin (GLUCOSAMINE 1500 COMPLEX ORAL) Take 1,500 mg by mouth once daily. PNV no.153/FA/om3/dha/epa/fish ( GUMMIES ORAL) Take by mouth once daily. Fish Oil-Moclips-3 Fatty Acids (FISH OIL) 340-1,000 mg cap Take 1 capsule by mouth once daily. niacin 500 mg CR capsule Take 500 mg by mouth daily at bedtime. magnesium oxide 400 mg magnesium tab Take 400 mg by mouth daily at bedtime. rOPINIRole (REQUIP) 0.25 mg tablet Take 0.25 mg by mouth daily at bedtime. Alpha Lipoic Acid 100 mg cap Take by mouth once daily. prasterone, DHEA, (DHEA ORAL) Take by mouth once daily. COQ10, UBIQUINOL, ORAL Take by mouth once daily. calcium carbonate/vitamin D3 (CALCIUM 600 + D,3, ORAL) (Patient not taking: No sig reported) alendronate (FOSAMAX) 35 mg tablet Take 35 mg by mouth one time a week. losartan (COZAAR) 25 mg tablet Take 25 mg by mouth once daily. alpha tocopheryl acetate (VITAMIN E) 400 unit capsule Take 400 Units by mouth once daily. VITAMIN B COMPLEX ORAL Take by mouth once daily. BIOTIN ORAL Take by mouth. A-CYSTEINE/ARG ZN/GLUT/MV-MN (RESTORE-X ORAL) Take by mouth. (Patient not taking: No sig reported) FERROUS SULFATE (IRON ORAL) Take 65 mg by mouth three times a week. 3 days a week ACETAMINOPHEN (TYLENOL 8 HOUR ORAL) Take 2 tablets by mouth as needed. multivitamin tablet Take 1 tablet by mouth once daily. pravastatin (PRAVACHOL) 40 mg tablet Take 1 tablet by mouth daily at bedtime. ALLERGIES: Dilaudid [Hydromorphone (Bulk)]; Latex, Natural Rubber; Oats, Oat Gum; Tape [Adhesive Tape (Rosins)]; and Vicodin [Hydrocodone-Acetaminophen] PAST MEDICAL HISTORY: PAST MEDICAL HISTORY Diagnosis Date Bursitis of right hip Hyperlipidemia Hypertension Neuropathy Osteopenia Stomach disease PAST SURGICAL HISTORY: PAST SURGICAL HISTORY Procedure Laterality Date BREAST BIOPSY 04/03/2012 left breast COLONOSCOPY DILATION AND CURETTAGE DXAND/THER NONOBSTETRIC x2 MASTECTOMY PARTIAL Left REVIEW OF SYSTEMS: GENERAL: No weight loss, malaise or fevers. HEENT: Negative for frequent or significant headaches, No changes in hearing or vision, no nose bleeds or other nasal problems RESPIRATORY: Negative for cough, wheezing or shortness of breath. CARDIOVASCULAR: Negative for chest pain, leg swelling or palpitations. GI: Negative for abdominal discomfort, blood in stools or black stools or change in bowel habits : No history of dysuria, frequency or incontinence MUSCULOSKELETAL: Negative for: joint pain or swelling, back pain and muscle pain SKIN: Negative for lesions, rash, and itching. HEMATOLOGY/LYMPHOLOGY: Negative for prolonged bleeding, bruising easily or swollen nodes. NEURO: No history of headaches, syncope, paralysis, seizures or tremors BREAST: scar tissue to left mastectomy area PHYSICAL EXAM: Vitals: BP 130/78 Pulse 90 Temp 36.2 ?C (97.2 ?F) (Temporal) Resp 16 Ht 162.2 cm (5' 3.86 ) Wt 78.4 kg (172 lb 13.5 oz) SpO2 96% BMI 29.80 kg/m? General appearance: well appearing, alert, in no acute distress, well-hydrated, well nourished Skin: skin color, texture, turgor normal, no suspicious rashes or lesions Head: normal Eyes: Anicteric sclera. Pupils are equally round and reactive to light. Extraocular movements are intact. Ears: negative findings: external ears normal to inspection and palpation Oropharynx: negative Neck: Supple, no adenopathy; thyroid symmetric, normal size Lymph Nodes: No Submandibular, cervical, supraclavicular, axillary, or inguinal lymphadenopathy present Breast: Bilateral mastectomy scars well-healed with no suspicious masses or other skin lesions Back: no tenderness to palpation Lungs: clear to auscultation, no wheezing or rhonchi Heart: Negative. RRR without murmur, gallop, or rubs. (more content not included)... [facility] 07-01-2023 History of Present illness Narrative PATIENT NAME: Parth Powers DATE: 07/01/2023 PRIMARY CARE PHYSICIAN: David Bolanos MD OTHER PHYSICIANS: Dr. Dejesus, Dr. Tash Quesada, Dr. Serna (Pain Management) Portions of this encounter note have been copied from the note from 2022 and has been updated where appropriate, and reflect my current medical decision making from today. CC: This is a 68 year old female with a history of breast cancer, seen for scheduled follow-up. INTERIM HISTORY: Since the patient's last visit here she has had no significant medical changes. Overall she feels well with no particular complaints. She has noticed no changes in her chest wall. No unusual pain or other systemic symptoms. MEDICATIONS: aspirin, enteric coated (ASPIRIN, ENTERIC COATED) 81 mg EC tablet Take 81 mg by mouth once daily. cholecalciferol (VITAMIN D-3) 50 mcg (2,000 unit) tablet Take 2,000 Units by mouth once daily. ascorbic acid (VITAMIN C ORAL) Take by mouth once daily. glucosamine/chondroitin/C/Bin (GLUCOSAMINE 1500 COMPLEX ORAL) Take 1,500 mg by mouth once daily. PNV no.153/FA/om3/dha/epa/fish ( GUMMIES ORAL) Take by mouth once daily. Fish Oil-Moclips-3 Fatty Acids (FISH OIL) 340-1,000 mg cap Take 1 capsule by mouth once daily. niacin 500 mg CR capsule Take 500 mg by mouth daily at bedtime. magnesium oxide 400 mg magnesium tab Take 400 mg by mouth daily at bedtime. rOPINIRole (REQUIP) 0.25 mg tablet Take 0.25 mg by mouth daily at bedtime. Alpha Lipoic Acid 100 mg cap Take by mouth once daily. prasterone, DHEA, (DHEA ORAL) Take by mouth once daily. COQ10, UBIQUINOL, ORAL Take by mouth once daily. calcium carbonate/vitamin D3 (CALCIUM 600 + D,3, ORAL) (Patient not taking: No sig reported) alendronate (FOSAMAX) 35 mg tablet Take 35 mg by mouth one time a week. losartan (COZAAR) 25 mg tablet Take 25 mg by mouth once daily. alpha tocopheryl acetate (VITAMIN E) 400 unit capsule Take 400 Units by mouth once daily. VITAMIN B COMPLEX ORAL Take by mouth once daily. BIOTIN ORAL Take by mouth. A-CYSTEINE/ARG ZN/GLUT/MV-MN (RESTORE-X ORAL) Take by mouth. (Patient not taking: No sig reported) FERROUS SULFATE (IRON ORAL) Take 65 mg by mouth three times a week. 3 days a week ACETAMINOPHEN (TYLENOL 8 HOUR ORAL) Take 2 tablets by mouth as needed. multivitamin tablet Take 1 tablet by mouth once daily. pravastatin (PRAVACHOL) 40 mg tablet Take 1 tablet by mouth daily at bedtime. ALLERGIES: Dilaudid [Hydromorphone (Bulk)]; Latex, Natural Rubber; Oats, Oat Gum; Tape [Adhesive Tape (Rosins)]; and Vicodin [Hydrocodone-Acetaminophen] PAST MEDICAL HISTORY: PAST MEDICAL HISTORY Diagnosis Date Bursitis of right hip Hyperlipidemia Hypertension Neuropathy Osteopenia Stomach disease PAST SURGICAL HISTORY: PAST SURGICAL HISTORY Procedure Laterality Date BREAST BIOPSY 04/03/2012 left breast COLONOSCOPY DILATION & CURETTAGE DX&/THER NONOBSTETRIC x2 MASTECTOMY PARTIAL Left REVIEW OF SYSTEMS: GENERAL: No weight loss, malaise or fevers. HEENT: Negative for frequent or significant headaches, No changes in hearing or vision, no nose bleeds or other nasal problems RESPIRATORY: Negative for cough, wheezing or shortness of breath. CARDIOVASCULAR: Negative for chest pain, leg swelling or palpitations. GI: Negative for abdominal discomfort, blood in stools or black stools or change in bowel habits : No history of dysuria, frequency or incontinence MUSCULOSKELETAL: Negative for: joint pain or swelling, back pain and muscle pain SKIN: Negative for lesions, rash, and itching. HEMATOLOGY/LYMPHOLOGY: Negative for prolonged bleeding, bruising easily or swollen nodes. NEURO: No history of headaches, syncope, paralysis, seizures or tremors BREAST: scar tissue to left mastectomy area PHYSICAL EXAM: Vitals: BP 130/78 Pulse 90 Temp 36.2 C (97.2 F) (Temporal) Resp 16 Ht 162.2 cm (5' 3.86 ) Wt 78.4 kg (172 lb 13.5 oz) SpO2 96% BMI 29.80 kg/m General appearance: well appearing, alert, in no acute distress, well-hydrated, well nourished Skin: skin color, texture, turgor normal, no suspicious rashes or lesions Head: normal Eyes: Anicteric sclera. Pupils are equally round and reactive to light. Extraocular movements are intact. Ears: negative findings: external ears normal to inspection and palpation Oropharynx: negative Neck: Supple, no adenopathy; thyroid symmetric, normal size Lymph Nodes: No Submandibular, cervical, supraclavicular, axillary, or inguinal lymphadenopathy present Breast: Bilateral mastectomy scars well-healed with no suspicious masses or other skin lesions Back: no tenderness to palpation Lungs: clear to auscultation, no wheezing or rhonchi Heart: Negative. RRR without murmur, gallop, or rubs. No ectopy. Abdomen: Normal abdominal exam, Abdomen soft, non-tender. Bowel sounds normal. No masses, organomegaly Rectal: Not done Extremities: Extremities normal. No deformities, edema, or skin discoloration. Good capillary refill. Musculoskeletal: No joint swelling, deformity, or tenderness. Peripheral pulses: Normal ASSESSMENT/PLAN: 1. Malignant neoplasm of lower-outer quadrant of left breast of female, estrogen receptor negative Stage IA (T1mic, N0, M0) ER/WA negative, HER-2 negative left-sided breast cancer diagnosed January 2012. The patient presented with an abnormal mammogram, and biopsy revealed DCIS with a focus of microinvasion. Status post lumpectomy with sentinel node procedure 03/31/2012. Postop the patient received adjuvant radiation therapy. Systemic adjuvant treatment was not indicated. Since the patient's initial treatment she has had several abnormal mammograms and breast MRIs. She has undergone multiple biopsies, all of which were negative for malignancy. Ultimately the patient elected to undergo bilateral mastectomies on 02/19/2019, and pathology on both breasts were negative. She has had no evidence of recurrence, and currently has no evidence of disease. Per patient request I will continue to see her on a yearly basis for examination. We will stage as indicated if suspicious signs or symptoms develop. Her PCP obtain yearly labs, therefore we will not obtain labs unless symptoms develop. Gregg Blum MD CC: David Bolanos MD documented in this encounter [facility] 02-20-2023 Evaluation note Encounter Date Diagnosis Assessment Notes Feb, Wound of foot (ICD-10 - S91.309A) Referral to [facility] written. 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 [facility] Other 10-24-2023 Evaluation note* Encounter Date Diagnosis Assessment Notes Treatment Notes Treatment Clinical Notes Jan, COVID-19 (ICD-10 - U07.1) Hold atorvastatin while on paxlovid. Continue rest and supportive care. Denies dyspnea. Discussed further treatment options. Reviewed + test at [facility] lab today [facility] Other 10-10-2023 Evaluation note* Encounter Date Diagnosis Assessment Notes Treatment Notes Treatment Clinical Notes Jan, Obstructive sleep apnea (ICD-10 - G47.33) Call if any questions or problems. For Sleep Apnea: Patient is advised to work on healthy diet choices and appropriate servings, weight control, regular exercise as directed, and reduce fat intake. Use machine regularly, and keep up with mask changes as needed. Call if problems with mask toleration, increased sleepiness, or poor response to treatment. Take medication as prescribed, keep follow up appointments, get any testing that's been ordered in a timely fashion. Do not smoke. Patient is readily compliant w machine and treatment. [facility] Other 08-08-2023 Evaluation note* Encounter Date Diagnosis Assessment Notes Treatment Notes Treatment Clinical Notes Nov, Medicare annual wellness visit, subsequent (ICD-10 - Z00.00) Personalized health advice was given to the beneficiary including a written plan for screenings discussed and provided. Advanced care planning reviewed and/or information given as requested. Additional counseling was provided here today in regards to, [ ]. The above visit was performed by [ ], under direct supervision of [ ]. Document reviewed and amended by provider signed below. Nov, Menopause (ICD-10 - Z78.0) On fosamax, DEXA is due for followup Continue routine weight bearing exercise. Nov, Pure hypercholesterolemi a, unspecified (ICD-10 - E78.00) chronic problem, due for albs Nov, Essential (primary) hypertension (ICD-10 - I10) chronic problem, due for labs Nov, Lumbar radiculopathy, chronic (ICD-10 - M54.16) Requests refill. condition is chronic and stable. [facility] Other 04-24-2023 Evaluation note* Encounter Date Diagnosis Assessment Notes Treatment Notes Treatment Clinical Notes Jul, Strain of left trapezius muscle, initial encounter (ICD-10 - S46.812A) [facility] Other 03-15-2023 Evaluation note* Encounter Date Diagnosis Assessment Notes Treatment Notes Treatment Clinical Notes Jun, Other chronic pain (ICD-10 - G89.29) Jun, Pain in left shoulder (ICD-10 - M25.512) Pt declines PT at this time. Will check xray and followup w Dr. Quinn. Had two massages - no improvement in prominent muscle spasm in L trap area. [facility] Other 03-02-2023 History of Present illness Narrative* Gregg Blum MD - 2022 7:13 AM EST PATIENT NAME: Parth Powers DATE: 2022 PRIMARY CARE PHYSICIAN: David Bolanos MD OTHER PHYSICIANS: Dr. Dejesus, Dr. Tash Quesada, Dr. Serna (Pain Management) Portions of this encounter note have been copied from the note from 06/14/2021 and has been updated where appropriate, and reflect my current medical decision making from today. CC: This is a 67 year old female with a history of breast cancer, seen for scheduled follow-up. INTERIM HISTORY: Since the patient's last visit here she has undergone several minor surgical procedures (surgery for bilateral ptosis, injections for back pain, Botox injections for bladder dysfunction). Otherwise she has had no significant medical changes. On follow-up today her only complaint is achy pain around her left shoulder and left neck area. This developed early last month. Pain meds per PCP have not helped much. She plans to undergo a massage later this week. Fortunately the pain is not severe. She denies any other areas of bone pain. Shehas noticed no changes in her chest white. MEDICATIONS: calcium carbonate/vitamin D3 (CALCIUM 600 + D,3, ORAL) alendronate (FOSAMAX) 35 mg tablet Take 35 mg by mouth one time a week. losartan (COZAAR) 25 mg tablet Take 25 mg by mouth once daily. alpha tocopheryl acetate (VITAMIN E) 400 unit capsule Take 400 Units by mouth once daily. VITAMIN B COMPLEX ORAL Take by mouth once daily. BIOTIN ORAL Take by mouth. A-CYSTEINE/ARG ZN/GLUT/MV-MN (RESTORE-X ORAL) Take by mouth. FERROUS SULFATE (IRON ORAL) Take by mouth. 3 days a week ACETAMINOPHEN (TYLENOL 8 HOUR ORAL) Take 2 tablets by mouth as needed. multivitamin tablet Take 1 tablet by mouth once daily. 4 days a week pravastatin (PRAVACHOL) 40 mg tablet Take 1 tablet by mouth daily at bedtime. ALLERGIES: Dilaudid [Hydromorphone (Bulk)]; Latex, Natural Rubber; Oats, Oat Gum; Tape [Adhesive Tape (Rosins)]; and Vicodin [Hydrocodone-Acetaminophen] PAST MEDICAL HISTORY: PAST MEDICAL HISTORY Diagnosis Date Bursitis of right hip Hyperlipidemia Hypertension Neuropathy Osteopenia Stomach disease PAST SURGICAL HISTORY: PAST SURGICAL HISTORY Procedure Laterality Date BREAST BIOPSY 04/03/2012 left breast COLONOSCOPY DILATION & CURETTAGE DX&/THER NONOBSTETRIC x2 MASTECTOMY PARTIAL Left REVIEW OF SYSTEMS: GENERAL: No weight loss, malaise or fevers. HEENT: Negative for frequent or significant headaches, No changes in hearing or vision, no nose bleeds or other nasal problems RESPIRATORY: Negative for cough, wheezing or shortness of breath. CARDIOVASCULAR: Negative for chest pain, leg swelling or palpitations. GI: Negative for abdominal discomfort, blood in stools or black stools or change in bowel habits : No history of dysuria, frequency or incontinence MUSCULOSKELETAL: Negative for: joint pain or swelling, back pain and muscle pain SKIN: Negative for lesions, rash, and itching. HEMATOLOGY/LYMPHOLOGY: Negative for prolonged bleeding, bruising easily or swollen nodes. NEURO: No history of headaches, syncope, paralysis, seizures or tremors BREAST: scar tissue to left mastectomy area PHYSICAL EXAM: Vitals: BP 134/74 Pulse 74 Temp 36.6 C (97.8 F) (Temporal) Resp 16 Ht 162.2 cm (5' 3.86 ) Wt 80.7 kg (178 lb) SpO2 97% BMI 30.69 kg/m General appearance: well appearing, alert, in no acute distress, well-hydrated, well nourished Skin: skin color, texture, turgor normal, no suspicious rashes or lesions Head: normal Eyes: Anicteric sclera. Pupils are equally round and reactive to light. Extraocular movements are intact. Ears: negative findings: external ears normal to inspection and palpation Oropharynx: negative Neck: Supple, no adenopathy; thyroid symmetric, normal size Lymph Nodes: No Submandibular, cervical, supraclavicular, axillary, or inguinal lymphadenopathy present Breast: Bilateral mastectomy scars well-healed with no suspicious masses or other skin lesions Back: no tenderness to palpation Lungs: clear to auscultation, no wheezing or rhonchi Heart: Negative. RRR without murmur, gallop, or rubs. No ectopy. Abdomen: Normal abdominal exam, Abdomen soft, non-tender. Bowel sounds normal. No masses, organomegaly Rectal: Not done Extremities: Extremities normal. No deformities, edema, or skin discoloration. Good capillary refill. Musculoskeletal: No joint swelling, deformity, or tenderness. Peripheral pulses: Normal ASSESSMENT/PLAN: 1. Malignant neoplasm of lower-outer quadrant of left breast of female, estrogen receptor negative Stage IA (T1mic, N0, M0) ER/WA negative, HER-2 negative left-sided breast cancer diagnosed January 2012. The patient presented with an abnormal mammogram, and biopsy revealed DCIS with a focus of microinvasion. The patient underwent a lumpectomy with sentinel node procedure 03/31/2012. Postop the patient received adjuvant radiation therapy. Systemic adjuvant treatment was not indicated. Since the patient's initial treatment she has had several abnormal mammograms and breast MRIs. She has undergone multiple biopsies, all of which were negative for malignancy. Ultimately the patient elected to undergo bilateral mastectomies on 02/19/19, and pathology on both breasts were negative. She has had no evidence of recurrence, and currently has no evidence of disease. At patient request I will see her back on a yearly basis for examination. We will stage as indicated if suspicious signs or symptoms develop. Her PCP obtain yearly labs, therefore we will not obtain labs unless symptoms develop. Currently the patient complains of achy pain around her left shoulder and left neck area. I suggested a trial of NSAIDs. If the pain worsens I would recommend evaluating with CT scans +/- bone scan. Gregg Blum MD CC: David Bolanos MD [facility]* Encounter Date Diagnosis Assessment Notes Treatment Notes Treatment Clinical Notes May, Strain of left trapezius muscle, initial encounter (ICD-10 - S46.812A) Declines cardiac concerns or PT referral as she is traveling soon. Will consider a massage. [facility] Other 02-02-2023 NoteCONSULTATION CONSULTATION DATE: 05/16/2022 HISTORY OF PRESENT ILLNESS: This is a pleasant, 66-year-old female who returns to the clinic status post bilateral RFA of L2, L3 and L4, L5 completed on 04/16/2022. The patient thus far has received 80% relief, which is ongoing. Her main complaint prior to the procedure was burning and pain to bilateral feet. That has nearly completely resolved. She did recently complete pool therapy, which she thought was very beneficial. Current medications include Requip 0.25 mg q.h.s. and Extra Strength Tylenol. She does have minor pain with lying in bed at night and in the evening hours. She does apply heat which is beneficial. She is sleeping much better through the night. Her pain is 3/10 today. Patient's REVIEW OF SYSTEMS / PAST MEDICAL HISTORY / ALLERGIES and IMAGES have been reviewed and noted on the chart. PHYSICAL EXAM: VITAL SIGNS: Blood pressure 130/81, heart rate is 59. She is 5'3 , weighs 81 kg. GENERAL IMPRESSION: Pleasant, appropriate, in no acute distress. FOCUSED EXAM - BACK: Range of motion is functional in lateral rotation and flexion/extension. No reproduction of spinal axial pain upon compression of the lumbar facets. Bela's point is non-tender bilaterally. Negative FABERs and compression test. Paravertebral muscles are non-spasmodic. MUSCULOSKELETAL: Motor is 5/5 bilaterally. Patient walks unassisted with a stable gait. No vasomotor weakness noted. NEUROLOGICAL: Patient is cognitively intact. Mild episodic hypoesthesia along the L5 distribution bilaterally. Reflexes are intact 2/2 bilaterally. DIAGNOSIS: Lower back pain, lumbar spondylosis, lumbar degenerative disc disease and lumbar radiculitis. PLAN: We will continue her on the Requip 0.25 mg q.h.s. and her magnesium supplements. Overall, she is doing well and I encouraged her to continue with her vitamins and do daily exercises as tolerated. At this time, we will see her on an as needed basis. She will call the office for refills.[facility] [phone] NoteCONSULTATION CONSULTATION DATE: 03/05/2022 CHIEF COMPLAINT: Low back pain. HISTORY OF PRESENT ILLNESS: This is a very pleasant, 66-year-old female who is accompanied by her . The patient is status post diagnostic lumbar medial branch block which afforded the patient 85+% improvement of her pain. Patient still states she is still feeling better, compared to her overall; however, the pain is gradually returning. The patient describes the pain as a 3-4/10 in the evenings and night; a burning, cramping sensation. The patient has started taking Requip, which she finds helpful. Laying down increases the pain. Sleep, change in weather aggravate the pain. The patient also takes Tylenol two tablets q.h.s. The patient's PAST MEDICAL HISTORY / SURGICAL HISTORY / REVIEW OF SYSTEMS are noted on the chart, along with the MEDICATION LIST / ALLERGIES and RADIOLOGICAL IMAGES. PHYSICAL EXAM: Upon physical examination, this is a pleasant, cooperative female, who has a slight flush to her face. She states she takes her niacin SR at lunch time. I have suggested she take this in the evening. VITAL SIGNS: Stable at 138/90, with a heart rate of 78. At a height of 5'3 , the patient weighs 80 kg. HEAD: Atraumatic. NECK: No overt pathology is noted. HEART: No orthopnea. LUNGS: No dyspnea. BACK: Extension, compression, direct palpation along the posterior elements aggravate and reproduce the patient's pain symptomatology concordant with facet arthropathy, lumbar spondylosis. EXTREMITIES: No pedal edema. MUSCULOSKELETAL: Intact in the lower extremities at 4+/5 bilaterally. NEUROLOGICALLY: The patient is intact. The patient does have a neuropathic type sensation and distribution into her legs and into her hands, for which she is now taking the niacin SR and is adding alpha lipoic acid. IMPRESSION: Current working diagnosis on the patient is chronic low back pain, lumbar spondylosis. PLAN: Given that the patient has had significant improvement with the two diagnostic medial branch blocks, we will schedule the patient for bilateral rhizotomy, radiofrequency ablation of the dorsal rami at the level of L2, L3 and L4, L5. Subsequent to that, the patient will proceed with an aquatic program. Depending on how the patient responds, we will adjust further. The patient understands and would like to proceed. CC: David Bolanos M.D.[facility] [phone] NotePAIN MANAGEMENT CONSULTATION CONSULTATION DATE: 02/12/2022 CHIEF COMPLAINT: Bilateral foot pain. HISTORY OF PRESENT ILLNESS: This is a very pleasant, 66-year-old female who had undergone a diagnostic lumbar medial branch block at the level of L2-3 and 4-5. The patient reported having significant mitigation in her pain postoperatively. Subsequent to that, her nocturnal pain and the burning dysesthesia in her feet had improved by more than 50%. It is gradually now decreasing. Subsequent to the block, the patient states she did not have any pain in her leg. The patient is currently taking Requip 0.25 mg q.p.m. which we will have her increase to 0.5 mg. The patient also has been given magnesium glycinate, niacin SR and alpha lipoic acid. Standing/walking do not aggravate her pain. Laying down increases her pain. Pain is worse in the evening compared to the daytime. Heat mitigates her pain. Change in weather aggravates her pain. The patient's PAST MEDICAL HISTORY / SURGICAL HISTORY / REVIEW OF SYSTEMS are noted on the chart, along with the MEDICATION LIST / ALLERGIES and RADIOLOGICAL IMAGES. PHYSICAL EXAMINATION: Upon physical examination, this is a pleasant, cooperative female, who does not appear to be in any acute distress. 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 VITAL SIGNS: Stable 125/84 with a heart rate of 76. At a height of 5'3 , the patient weighs 76 kg. HEAD: Atraumatic, normocephalic. Slight flushing is noted on the patient's face. NECK: No guarding is noted. HEART: No orthopnea. LUNGS: Non-labored breathing. ABDOMEN: Protuberant, non-distended. BACK: Significant paravertebral spasming is still present bilaterally. Extension, compression, direct palpation along the posterior elements aggravate the patient's pain concordant with facet arthropathy, lumbar spondylosis. EXTREMITIES: No pedal edema is noted. MUSCULOSKELETAL: Intact in the lower extremities. Decreased muscle bulk, muscle density. NEUROLOGICALLY: No hyperpathia/allodynia is noted. PSYCHIATRICALLY: Affect is appropriate. IMPRESSION: Lumbar degenerative disc disease, lumbar spondylosis, lumbar paravertebral spasm, spinal canal stenosis, nocturnal claudication, decreased muscle bulk/density. PLAN: We will increase the Requip to 0.5 mg q.p.m. The patient was re-educated with regards to her nutritional vitamins suggested. The patient will be scheduled for a diagnostic #2 medial branch block. X-rays and fluoroscopy images were shared with the patient and her . Questions answered. The patient would like to proceed.[facility] [id number] Note PAIN MANAGEMENT CONSULTATION CONSULTATION DATE: 01/15/2022 HISTORY OF PRESENT ILLNESS: This is a 66-year-old female who is referred to us by Dr. David Bolanos. The patient has chronic low back pain. 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 The patient also has pain in her feet bilaterally. The patient describes the pain, at times, gets up to a 7/10. The pain in her feet is a burning sensation. She rates it at times it gets to 10/10. The patient states activities such as housework activities aggravate the patient's pain. Heat mitigates the pain. Sleep mitigates the pain. The pain is worse in the evening compared to the morning. The patient takes Tylenol, alendronate, biotin, along with a multivitamin regimen. The patient takes calcium, which we have suggested she stop. The patient has tried gabapentin without any help for three years. The patient's PAST MEDICAL HISTORY / SURGICAL HISTORY / REVIEW OF SYSTEMS are noted on the chart, along with the MEDICATION LIST / ALLERGIES and the RADIOLOGICAL IMAGES - X-RAYS which were reviewed in the office today, which show severe osteopenia. PHYSICAL EXAM: Upon physical examination, this is a very pleasant, rather tired looking, 66-year-old female, who looks older than stated age. VITAL SIGNS: Slightly elevated at 146/91, with a heart rate of 90. At a height of 5'3 , the patient weighs 175 pounds, 79 kg. The patient appears fatigued. HEAD: Atraumatic, normocephalic. NECK: Cervicothoracic/neck range of motion is within functional limits. HEART: No orthopnea. LUNGS: Non-labored breathing. ABDOMEN: Soft, non-distended. BACK: Extension, compression, direct palpation along the posterior element along the lumbar spine aggravate and reproduce the patient's pain symptomatology concordant with facet arthropathy, lumbar spondylosis. EXTREMITIES: No pedal edema is noted. Slight sarcopenia is present in her lower extremities bilaterally. NEUROLOGICALLY: No radiculopathy symptomatology at present. PSYCHIATRICALLY: Affect is appropriate. IMPRESSION: Vertebrogenic low back pain, lumbar spondylosis, early thoracic arthrosis. PLAN: I wanted to rearrange some of the vitamins the patient was taking. I suggested the patient add alpha lipoic acid 600 mg q.p.m., magnesium glycinate and niacin SR 500 mg q.p.m. In the interim, we will also give the patient Requip 0.25 mg q.p.m. The patient will be scheduled for a diagnostic lumbar medial branch block at the level of L2-3 and L4-5 for her lumbar spondylosis/arthrosis. The patient understands and would like to proceed. The patient is also to perform extension exercises along the thoracic spine. CC: David Bolanos M.D.[facility] [phone] Evaluation note* Encounter Date Diagnosis Assessment Notes Treatment Notes Treatment Clinical Notes Apr, Arthritis of right hip (ICD-10 - M16.11) Apr, Trochanteric bursitis of right hip (ICD-10 - M70.61) Patient denies any complaints of hip pain at this time. She attributes this to a prevoius hip injection and recent physical therapy. We will continue to monitor and proceed with future treatment as needed. Patient was provided with at home stretching/ exercise and advised to continue with activity as tolerated. She will apply Voltaren Gel to the area as needed. We will follow up with the patient as needed. Overall, patient believes their pain is reasonably well controlled and she is in agreement with our treatment plan. Apr, Chronic pain (ICD-10 - G89.29) Apr, Other Above note written by Chadd Irizarry MA, Tube Operator. Edited and approved by Dr. Stacey Vigil MD. [facility] Other 12-08-2021 Evaluation note* Encounter Date Diagnosis Assessment Notes Treatment Notes Treatment Clinical Notes Mar, Trochanteric bursitis of right hip (ICD-10 - M70.61) [facility] Other 12-07-2021 Evaluation note* Encounter Date Diagnosis Assessment Notes Treatment Notes Treatment Clinical Notes Mar, Arthritis of right hip (ICD-10 - M16.11) Mar, Trochanteric bursitis of right hip (ICD-10 - M70.61) Patients main complaint continues to be her right hip and lateral thigh pain. Her pain appears to be more consistent with trochanteric bursa pain at this time. Recent hip joint injection helped with thigh and groin pain and the bursa injection seemed to provide significant short term relief. Given persistent pain, I will refer the patient to physical therapy for Iontophoresis for further treatment. Additionally, patient was advised to apply Voltaren Gel to the area as needed. She will follow up with us in four weeks, sooner if needed. Anatomy discussed in detail with patient in regards to patients condition. Mar, Chronic pain (ICD-10 - G89.29) Mar, Other Above note writ ten by Chadd Irizarry CMA, Tube Operator. Edited and approved by Dr. Stacey Vigil MD. [facility] Other 10-06-2021 Evaluation note* Encounter Date Diagnosis Assessment Notes Treatment Notes Treatment Clinical Notes Jan, Arthritis of right hip (ICD-10 - M16.11) Patient's main complaint is her right hip, thigh, groin pain. She was seen by orthopedics who helped with her trochanteric bursa related pain and is suggesting a right intraarticular hip hip injection for both diagnostic and hopefully therapeutic purposes. We will plan on proceeding with this. Risks and benefits of procedure explained to patient; patient verbalizes understanding. It was explained if this injection was not helpful we may consider further evaluation of the lumbar spine as a possible source of her pain. Anatomy of spine discussed in detail with patient in regards to patients condition. Jan, Trochanteric bursitis of right hip (ICD-10 - M70.61) Jan, Chronic pain (ICD-10 - G89.29) Jan, Other Above note writ ten by Macy Toth CMA, Tube Operator. Edited and approved by Dr. Stacey Vigil MD. Medical decision making shows a new problem to me with further workup planned or suggested with the potential for extensive treatment options that were considered with the most applicable given this patient's situation as noted above. Treatment options considered include a combination of physical therapy approaches, pharmacologic management, and interventional procedures. Those most applicable to the patient were discussed at this time. Risk of complications and/or morbidity and mortality is high given that acute and chronic pain poses a threat to life and bodily function if undertreated, poorly treated or with failure to maintain adequate treatment and timely followup. Given the serious and fluctuating nature of pain with extensive consideration for whenever pain changes, there always remains the possibility of prolonged functional impairment requiring constant patient reassessment and high-level medical decision making. The amount and complexity of data reviewed is high given that patient labs, radiology reports, and other test were obtained, reviewed and summarized as applicable from the physician portal and/or outside medical records. Pertinent positive and negative findings were considered in medical decision-making. [facility] Other 09-29-2021 Evaluation note* Encounter Date Diagnosis Assessment Notes Treatment Notes Treatment Clinical Notes Dec, Trochanteric bursitis of right hip (ICD-10 - M70.61) Her injection seemed to resolve this. We will continue to monitor. Dec, Arthritis of right hip (ICD-10 - M16.11) Parth returns today for follow-up of right hip pain. At her last visit we did a trochanteric bursa injection which seemed to resolve some of her pain but now she is complaining more of what I think is hip joint pain. At this juncture we have discussed the findings and diagnosis as well as personally reviewed appropriate imaging and performed interpretation of related testing and examination with the patient in office today. Prior medical notes and history have been reviewed. At this time I would recommend intra-articular hip injection for both therapeutic and diagnostic purposes. I will have her see Dr. Donita Vigil for this. She does have some underlying spine pathology so we will order spine x-rays on her way out today. We will plan for follow-up after hip injection is performed. The patient has been involved in our cooperative treatment plan and agrees to move forward with treatment at this time.Enter text ... Discussed as patient is experiencing a different location of hip pain today, I am concerned that patient now has pain from hip arthritis. Extensive discussion about current condition and treatment options available. We will schedule patient with Dr Joseph Vigil for a right hip joint injection to be therapeutic as well as diagnostic. Patient was in understanding and wishes to proceed. She will schedule an appt with Dr Joseph Vigil (interventional pain physician) for evaluation and hip joint injection. Dec, Pain of right lower extremity (ICD-10 - M79.604) [facility] Other Evaluation noteNo [email or web address] Other Evaluation noteNo assessment information available [facility] Work Phone: Evaluation note* Diagnosis Malignant neoplasm of upper-outer quadrant of left breast in female, estrogen receptor negative (HCC)- [facility] Diagnosis Malignant neoplasm of upper-outer quadrant of left breast in female, estrogen receptor negative (HCC)- Primary documented in this encounter [facility] general Narrative - Reported* Type Description Date Medical History hypertension Medical History high cholesterol Medical History neuropathy bilateral feet Medical History osteoarthritis Medical History breast cancer Medical History osteopenia Surgical History breast cancer Surgical History lumpectomy, left breast Surgical History lumpectomy, right breast Surgical History bilateral mastectomy Surgical History toe surgery Hospitalization History see above [facility] Other History general Narrative - ReportedNoEadBox Other [facility]gkri general Narrative - Reported* Type Description Date Medical History hypertension Medical History high cholesterol Medical History neuropathy bilateral feet Medical History osteoarthritis Medical History breast cancer Medical History osteopenia Medical History Arthritis of right hip Medical History Peripheral neuropathic pain Medical History Lumbar radiculopathy, chronic Medical History Osteopenia Medical History Hyperlipemia Medical History Obstructive sleep apnea Medical History COVID Medical History Elevated fasting glucose Medical History Common wart Medical History Hypercholesterolemia Medical History Hypoglycemia Medical History Hypertension Medical History Benign paroxysmal positional fátima tigo, bilateral Medical History 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 Medical History BILATERAL FOOT PAIN Surgical History breast cancer Surgical History lumpectomy, left breast Surgical History lumpectomy, right breast Surgical History bilateral mastectomy Surgical History toe surgery Surgical History eye lid lift 05/23/2022 Hospitalization History see above [facility] Other History general Narrative - Reported* Type Description Date Medical History hypertension Medical History high cholesterol Medical History neuropathy bilateral feet Medical History osteoarthritis Medical History breast cancer Medical History osteopenia Medical History Arthritis of right hip Medical History Peripheral neuropathic pain Medical History Lumbar radiculopathy, chronic Medical History Osteopenia Medical History Hyperlipemia Medical History Obstructive sleep apnea Medical History COVID Medical History Elevated fasting glucose Medical History Common wart Medical History Hypercholesterolemia Medical History Hypoglycemia Medical History Hypertension Medical History Benign paroxysmal positional fátima tigo, bilateral Medical History 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 Medical History BILATERAL FOOT PAIN Medical History Overweight (resolved 07/20/2019) Medical History Hereditary and idiop athic neuropathy, unspecified (resolved 07/21/2020) Medical History Other specified diso rders of bone, thigh (resolved 08/30/2021) Medical History Excessive and freque nt menstruation with regular cycle (resolved 06/19/2016) Medical History Body mass index (BMI ) 28.0-28.9, adult (resolved 07/20/2019) Medical History Family history of ma lignant neoplasm of breast (resolved 08/11/2019) Medical History Encounter for screen ing for depression (resolved 08/11/2019) Surgical History breast cancer Surgical History lumpectomy, left breast Surgical History lumpectomy, right breast Surgical History bilateral mastectomy Surgical History toe surgery Surgical History eye lid lift 05/23/2022 Hospitalization History see above [facility] Other Summary Purpose Family History No Family History Records FoundNo Family History Records FoundNo Family History Records FoundNo Family History Records FoundNo Family History Records FoundNo Family History Records Found Advance Directives No Advanced Directives Records Found Advance Directive Response Recorded Date/ Time Advance Directives No December 10:06am Documents on File Type Date Recorded Patient Brand Ambassador Promotional Model Expl anation Advance Directive(s) 05/26/2012 10:48 AM Chief Complaint and Reason for Visit Chief Complaint H02.403 Reason for Referral Reason connie Barahona concerns - MRI pending Diagnosis 1 Memory deficit (R41. 3) Referral Organization [facility]sa Referring Provider First Name David Referring Provider Last Name Luis Miguel Referring Provider Specialty [facility] Referred Organization [facility] Referred Provider Quentin Eric Referred Address [address] [place],[address] Referred Provider Specialty Neurology Referral Priority Routine Reason *FU 07/10 Marv of fice - Xray today. OV from today and May. Thank you. Diagnosis 1 Pain in left shoulde r (M25.512) Referral Organization [facility] rosa Referring Provider First Name David Referring Provider Last Name Luis Miguel Referring Provider Specialty [facility] Referred Organization [facility] Referred Provider CheyenneAdelso Referred Address ,[place], [place],[address] Referred Provider Specialty Orthopaedic Surgery Referral Priority Routine General Notes Ginger Pruitt 01:20:29 PM >received today, no XR from today in chart, notes locked, other attachments made, referral faxxed Ginger Pruitt 07/03/2022 10:55:25 AM >FAXED FIRST ATTEMPT LETTER Additional Source Comments INFORMATION SOURCE (unrecogn ized section and content) DATE CREATED AUTHOR 11/24/2018 [facility] DATE CREATED AUTHOR AUTHOR'S ORGANIZ ATION 05/18/2022 [facility] DATE CREATED AUTHOR AUTHOR'S ORGANIZ ATION 08/01/2022 [facility] DATE CREATED AUTHOR AUTHOR'S ORGANIZ ATION 04/25/2023 [facility] DATE CREATED AUTHOR AUTHOR'S ORGANIZ ATION 07/02/2023 [facility] DATE CREATED AUTHOR AUTHOR'S ORGANIZ ATION 08/29/2023 [facility] REASON FOR VISIT (unrecogniz ed section and content) Reason Comments Breast Cancer 1 year follow up Reason Comments Breast Cancer Follow up Care Teams (unrecognized sec tion and content) Team Status: Inactive Member Role Status Dates David Bolanos MD Primary Care Provider Active Regina Biggs MD Attending Provider Active Team Status: Active Member Role Status Dates David Bolanos MD Primary Care Provider Active Banquet Chef Relationship Specialty Start Date End Date David Bolanos MD [address] [place] [address] PCP - General Family Medicine 03/19/12 Banquet Chef Relationship Specialty Start Date End Date David Bolanos MD [address] [place] [address] PCP - General Family Medicine 03/19/12 Banquet Chef Relationship Specialty Start Date End Date David Bolanos MD [address] [place] [address] PCP - General Family Medicine 03/19/12 Goals (unrecognized section and content) Goals may be documented in a n alternate section Source Comments (unrecognize d section and content) In the event this informatio n is protected by the Federal Confidentiality of Alcohol and Drug Abuse Patient Records regulations: The Federal rules restrict any use of the information to criminally investigate or prosecute any alcohol or drug abuse patient.[facility] the event this information is protected by the Federal Confidentiality of Alcohol and Drug Abuse Patient Records regulations: The Federal rules restrict any use of the information to criminally investigate or prosecute any alcohol or drug abuse patient.[facility] the event this information is protected by the Federal Confidentiality of Alcohol and Drug Abuse Patient Records regulations: The Federal rules restrict any use of the information to criminally investigate or prosecute any alcohol or drug abuse patient.[facility] FOR RECORDS PERTAINING TO PATIENTS WHO ARE OR HAVE BEEN ENROLLED IN A CHEMICAL DEPENDENCY/SUBSTANCEABUSE PROGRAM, SOME INFORMATION MAY BE OMITTED. This clinical summary was aggregated from multiple sources. Caution should be exercised in using it in the provision of clinical care. This summary normalizes information from multiple sources, and as a consequence, information in this document may materially change the coding, format and clinical context of patient data. In addition, data may be omitted in some cases. CLINICAL DECISIONS SHOULD BE BASED ON THE PRIMARY CLINICAL RECORDS. [facility]. provides no warranty or guarantee of the accuracy or completeness of information in this document.
== END 2023-09-01 22:32 | disposition home or self-care (01) ==
LOC: LAB 22:31
PROVIDERS: PCP Family Medicine; Visit Provider Physician Assistant
DX: Z01.419 Encounter for gynecological examination (general) (routine) without abnormal findings (principal)
CPT/HCPCS: G0145

== ENCOUNTER 2023-09-19 09:19 | Outpatient (RCR) | payer MEDICARE, OTHER, SELFPAY | END 2023-10-03 17:03 | disposition home or self-care (01) | LOC: PT 09:19 | PROVIDERS: PCP Family Medicine; Visit Provider Family Medicine | DX: M25.552 Pain in left hip (principal) | CPT/HCPCS: 20561; 97010; 97014; 97110; 97113; 97140; 97162; G0283 ==

== ENCOUNTER 2023-10-13 10:03 | Outpatient (OUT) | payer MEDICARE, OTHER, SELFPAY ==
--- NOTE | 2023-10-13 10:11 | XR_ITS ---
[address] [address] Patient Name: PARTH POWERS MRN: [id number] date: 1955 Sex: F Assigned Patient Location: [facility] Current Patient Location: [facility] Accession/Order Number: [id number] Exam Date: 10/13/2023 10:15 Report Date: 10/13/2023 11:41 At the request of: YINKA HARP Procedure: XR DEXA axial skeleton EXAMINATION: XR DEXA axial skeleton HISTORY: Osteoporosis COMPARISON: DEXA bone densitometry 10/09/2021 TECHNIQUE: Dual-energy X-ray absorptiometry (DXA) was performed. FINDINGS: SPINE ANALYSIS: Average bone mineral density is 1.096 g/cm2. T-score (standard deviation relative to young adult mean): -0.7 . +6.4% change since prior study. HIP ANALYSIS: Lowest bone mineral density is within the left femoral neck, 0.711 g/cm2. T-score (standard deviation relative to young adult mean): -2.3 . 0.0% change since prior study. XR/XR DEXA axial skeleton IMPRESSION: World Health Organization Classification: Osteopenia - Moderate Fracture Risk FRAX: Cannot calculate. Pharmacologic treatment recommendations * No uniform recommendation applies to all patients. Management plans must be individualized. * Consider initiating pharmacologic treatment in postmenopausal women and men >= 50 years of age who have the following: Primary fracture prevention: * T-score <= - 2.5 at the femoral neck, total hip, lumbar spine, 33% radius (some uncertainty with existing data) by DXA. * Low bone mass (osteopenia: T-score between - 1.0 and - 2.5) at the femoral neck or total hip by DXA with a 10-year hip fracture risk >= 3% or a 10-year major osteoporosis-related fracture risk >= 20% (i.e., clinical vertebral, hip, forearm, or proximal humerus) based on the [place]-adapted FRAXregistered model. Secondary fracture prevention: * Fracture of the hip or vertebra regardless of BMD [4, 5]. * Fracture of proximal humerus, pelvis, or distal forearm in persons with low bone mass (osteopenia: T-score between - 1.0 and - 2.5). The decision to treat should be individualized in persons with a fracture of the proximal humerus, pelvis, or distal forearm who do not have osteopenia or low BMD [12, 13]. Leah MS, Esdras SL, Mil KL, Inna EM, Itzel KG, AJ, Aicha ES. The clinician's guide to prevention and treatment of osteoporosis. Osteoporos Int. 2021;33(10):8718-8847. doi: 10.1007/r04123-270-95946-u. Epub 2021Aug 09. Erratum in: Osteoporos Int. 2021Nov 08;: PMID: [id number]; PMCID: [id number]. Electronically authenticated by: HERMINIA BRUNER Date: 10/13/2023 11:41
== END 2023-10-13 10:04 | disposition home or self-care (01) ==
LOC: RAD 10:03
PROVIDERS: PCP Family Medicine; Visit Provider Physician Assistant
DX: M85.80 Other specified disorders of bone density and structure, unspecified site (principal); Z78.0 Asymptomatic menopausal state
CPT/HCPCS: 77080

== ENCOUNTER 2023-11-06 07:34 | Outpatient (RCR) | payer MEDICARE, OTHER, SELFPAY ==
[2023-11-06 15:05] VITALS: BP 149/82; PULSE 97; TEMP 36.9; O2SAT 95
[2023-11-06 15:06] LABS: Calcium 9.7 mg/dL (8.5-10.1); Estimated GFR (African America >60 (>=60); Estimated GFR (Non-African Ame >60 (>=60)
[2023-11-06] MEDS: DENOSUMAB 60 MG/ML SYRINGE SUBQ (15:24)
== END 2023-11-12 08:33 | disposition home or self-care (01) ==
LOC: INF 07:34
PROVIDERS: PCP Family Medicine; Visit Provider Physician Assistant
DX: M81.0 Age-related osteoporosis without current pathological fracture (principal); Z78.0 Asymptomatic menopausal state
CPT/HCPCS: 36415; 82310; 82565; 96372; J0897

== ENCOUNTER 2023-12-12 08:06 | Outpatient (OUT) | payer MEDICARE, OTHER, SELFPAY ==
[2023-12-12 08:21] LABS: Basophils Percent Auto 0.7 % (0.2-2.0); Eosinophils Absolute Auto 0.1 10^3/uL (0.0-0.7); Hematocrit 36.8 % (36.0-48.0); Hemoglobin 12.4 g/dL (12.0-16.0); Lymphocytes Absolute Auto 1.7 10^3/uL (1.2-3.8); Lymphocytes Percent Auto 37.9 % (20.5-60.0); Mean Corpuscular HGB Conc 33.7 g/dL (29.9-35.2); Mean Corpuscular Volume 97.9 fL (81.0-99.0); Monocytes Absolute Auto 0.5 10^3/uL (0.3-0.8); Monocytes Percent Auto 11.8 % (1.7-12.0); Neutrophils Absolute Auto 2.2 10^3/uL (1.4-6.5); Neutrophils Percent Auto 47.6 % (43.0-75.0); Platelet Count 257 10^3/uL (150-450); Red Blood Count 3.76 10^6/uL (4.20-5.40); Red Cell Distribution Width 15.7 % (11.0-15.0); White Blood Count 4.6 10^3/uL (4.0-11.0)
--- OUTSIDE RECORDS SUMMARY | 2023-12-12 08:22 | XMS_ITS | CCD ---
Author Organization [facility] Care Team Providers Care Loom Tuner Name Role Phone Keith Gaspar Unavailable Stacey Vigil Unavailable MD David Bolanos Primary Care Provider MD Regina Biggs Attending Provider David Bolanos Primary Care Unavailable Regina Biggs Attending Unavailable Regina Biggs Admitting Unavailable David Bolanos MD Primary Care Provider [phone] David Bolanos Unavailable SAV ., DR EM [...] MIGUEL, DR DAVID Bravo Primary Care Unavailable DALIA WANG Admitting Unavailable DALIA WANG Attending Unavailable SAV ., DR EM [...] Unavailable BOLANOS, DR DAVID Bravo Admitting Unavailable [place], DR GILLES Campo Consulting Unavailable BOLANOS, DR [...] SERNA ., DR EM Hernandez Consulting Unavailable BOLANOS, DAVID Bravo Primary Care Unavailable SELF Referring Unavailable GREGG BLUM Attending Unavailable BOLANOS, DAVID Bravo Primary Care Unavailable JELENA CALIXTO Attending Unavailable LOYD, YINKA Attending Unavailable LOYD, YINKA Attending Unavailable STEPHEN CHUNG Attending Unavailable ARCHULETA, Sandeep R Attending Unavailable ARCHULETA, Sandeep R Attending Unavailable Orzech, Za X Attending Unavailable Orzech, Za X Attending Unavailable ARCHULETA, Sandeep R Attending Unavailable Orzech, Za X Attending Unavailable ARCHULETA, Sandeep R Attending Unavailable ARCHULETA, Sandeep R Referring Unavailable ARCHULETA, Sandeep R Admitting Unavailable Allergies Allergy Classification Reported Allergen(s) Allergy Type Date of Onset Reaction(s) Facility (15 sources) Acetaminophen / HYDROcodone; Translations: [Vicodin] Drug Allergy 03-27-20 [address] [facility] Repository (19 sources) HYDROmorphone; Translations: [HYDROmorphone] Drug Allergy 03-27-20 15 Unknown [facility] Repository (13 sources) Morphine Drug Allergy Unknown [facility] Other (4 sources) Acetaminophen / HYDROcodone; Translations: [HYDROCODONE-ACET AMINOPHEN] Drug Allergy 12-23-19 15 [facility] (4 sources) Adhesive Tape; Translations: [ADHESIVE TAPE (ROSINS)] Allergy to substance 03-13-[address] [facility] (4 sources) HYDROmorphone; Translations: [HYDROMORPHONE (BULK)] Drug Allergy 12-23-19 15 GI [facility] (4 sources) Latex; Translations: [LATEX, NATURAL RUBBER] Drug Allergy 08-15-[address] [facility] (4 sources) Oats, Oat Gum; Translations: [OATS, OAT GUM] Food Allergy 05-21-[address] [facility] (12 sources) Adhesive Tape; Translations: [Tape] Drug allergy Unknown [facility] Repository (12 sources) Latex; Translations: [Latex] Drug allergy Unknown [facility] Repository (2 sources) HYDROmorphone; Translations: [Dilaudid] Drug Allergy 03-27-20 [address] [facility] Repository (1 source) Latex Drug allergy (disorder) 03-27-20 [address] [facility] Repository (1 source) Morphine Drug Allergy [facility] Repository (2 sources) Nimorazole; Translations: [Oats] Drug Allergy 04-14-19 [address] [facility] Repository (1 source) Misc-Other; Translations: [Misc-Other] Propensity to adverse reactions (disorder) 03-27-20 [address] [facility] Repository (7 sources) Vicodin *ANALGESICS - OPIOID* Propensity to adverse reactions 04-14-19 19 Unknown [facility] Other (7 sources) Morphine Sulfate (Concentrate) *ANALGESICS - OPIOI Propensity to adverse reactions Unknown [facility] Other (2 sources) Allergies Reconciled Propensity to adverse reactions Unknown [facility] Other (2 sources) patient allergy list reviewed by nurse or physicia Propensity to adverse reactions 07-15-19 Comment:Done [facility] Other Medications Current Medications Medication Drug Class(es) Dates Sig (Normalized) Sig (Original) calcium carbonate 1500 mg oral tablet (18 sources) take 1 tablet by risa every twelve hours Calcium 600 MG 1 [...] (11 sources) take 1 capsule by mo [facility] once daily Fish Oil 1000 MG 1 [...] for 90 days May, Active Vitamin D3 [id number] UNIT/GM (18 sources) Vitamin D3 65695 00 UNIT/GM as directed Active {20 (nirmatrelvir [...] on above: Take 2 tablets by mo [facility] as needed. alendronic acid 35 mg oral [...] 0 Active take 1 tablet by risa th every twenty-four hours Aspirin 81 MG 1 tablet Orally Once a day Active Comment on above: Take 81 mg by mouth once daily. Biotin (20 sources) take 1 tablet by risa th every twenty-four hours Biotin 300 MCG 1 [...] a week. 3 days a week Fish Oil-[place]-3 Fatty Acids (FISH OIL) 340-1,000 mg cap (3 sources) take 1 capsule by mouth once daily Fish Oil-[place]-3 Fatty Acids (FISH OIL) 340-1,000 mg cap Take 1 capsule by mouth once daily. 0 Active Comment on above: Take 1 capsule by mo [facility] once daily. fluocinonide 0.5 mg/ml topical cream (11 sources) Corticosteroid Start: 03-22-20 Fluocinonide 0.05 % apply 1-2 grams Externally up to three times weekly with PT Mar, Not-Taking glucosamine 750 mg oral tablet (9 sources) Glucosamine 750 MG as directed Orally Not-Taking glucosamine/chondroi tin/C/Bin (GLUCOSAMINE 1500 COMPLEX ORAL) (3 sources) glucosamine/walt droi tin/C/Bin (GLUCOSAMINE 1500 COMPLEX ORAL) Take 1,500 mg by mouth once daily. 0 Active Comment on above: Take 1,500 mg by risa once daily. losartan potassium 25 mg oral [...] above: Take 1 tablet by risa th once daily. niacin 500 mg extended release [...] sources) Not-Norman ing Probiotic (9 sources) Probiotic Not-Fabian moses rOPINIRole 0.25 mg oral tablet (12 sources) Nonergot Dopamine Agonist End: 07-02-19 24 take 1 tablet by mouth once daily at bedtime rOPINIRole (REQUIP) 0.25 mg tablet Take 0.25 mg by mouth daily at bedtime. 0 07/02/2023 Discontinued Requip XL Not-Fabian moses Comment on above: Take 0.25 mg by [...] Comment on above: Take 400 Units by [facility] once daily. Vitamin E 1000 IU (16 sources) Vitamin E 1000 I U Not-Taking Vitamin E 1000 I U Active Problems Active Problems Problem Classification Problem Date Documented Date Episodic/Chronic Acquired foot deformities (4 sources) Acquired hallux rigidus; Translations: [Hallux rigidus, right foot] Chronic Administrative/social admission (2 sources) Informing health pet caretaker of test result; Translations: [Person consulting for [...] Test Name Value Interpretation Reference Range Facility Urology Office/Clinic Noteon 12-02-2023 Urology Office/Clinic Note Urology Office/Clinic Note Chief Complaint f/u botox HPI Staff F/u to Botox done 10/21/23 with PVR. Dx: urge incontinence and stress incontinence Botox 100u 11/19/16, 02/17/18, 10/26/19, 02/06/21, and 05/28/22 pt denies any issues today, pt feels good History of Present Illness Tests reviewed: reviewed UA I have reviewed the previous health record information and history for this patient from Za Espinoza NP. I have reviewed and verified the staff HPI to be accurate for this encounter. Review of Systems PHQ Score Initial [...] tendency. Psychiatric: no confusion, no anxiety. Genitourinary: See HPI. Physical Exam Vitals & Measurements HR: 84(Peripheral) BP: 132/86 HT: 65 in HT: 165 cm WT: 82 kg WT: 180.4 lb BMI: 30.12 General Appearance: alert , no acute distress, well nourished, well developed female. Assessment/Plan 1. Urge incontinence (N39.41: Urge incontinence) S/p Botox 100u 11/19/16, 02/17/18, 10/26/19, 02/06/21, and 05/28/22 [1] S/p Botox 100u 10/21/23 PVR (cc): 05/28/22 - 33 09/23/23 - 62 12/02/23 - 0 BBS 4. UA today shows trace-intact blood, negative nitrites, and small leuks. Pt denies any sxs of UTI Had botox on 10/21/23. Pt states she feels perfect . No urinary complaints or concerns. Overall very satisfied with results of botox. States she goes to the restroom every 3-4 hours, no leaking or dribbling, no urgency or stress incontinence. -pt prefers to call when she feels she need botox again, will schedul appt at that time 2. Stress incontinence (N39.3: Stress incontinence (female) (male)) See #1. improved since botox Follow-up With When Contact Information Alexis [employer] SOFTWARE DEVELOPER, CUSTOMER CARE SPECIALIST-C, Za X, FAM, URL Additional Instructions: PRN Patient Education Overactive Bladder, Adult I, Absity White, personally scribed for STACIE Espitia on 12/02/2023 15:24:10. . Documentation recorded by the [place] accurately reflects the services(s) I performed and decisions made by me. Authenticated by Za Espinoza APRN, FNP-C on 12/02/2023 15:58:10. 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 Mixed incontinence Neuropathy Stress incontinence Urge incontinence Urinary urgency Historical No qualifying data Procedure/Surgical History Injection of therapeutic substance into bladder wall (05/28/2022), Injection of therapeutic substance into bladder wall (02/06/2021), Cystoscopy (10/26/2019), Bilateral mastectomy (02/2019), Injection of therapeutic substance into bladder wall (02/17/2018), Injection of therapeutic substance into bladder wall (11/19/2016), [place] node biopsy (03/2012), Lumpectomy (02/2012), External beam radiotherapy (2011), Cystoscopy (04/11/2003), Urodynamics (04/11/2003), D&C - Dilatation and curettage, Excision of calcaneal spur. Medications Alpha Lipoic, Oral Aricept 5 mg Tab, 5 mg= 1 tab(s), Oral, Once a day (at bedtime) biotin, Oral, Daily calcium (as carbonate) 600 mg oral tablet DONEPEZIL HYDROCHLORIDE ferrous sulfate, Oral Fish Oil fosamax, 35 mg, Oral, Friday glucosamine hydrochloride 1500 mg oral tablet, 1500 mg= 1 tab(s), Oral, Daily losartan 25 mg Tab magnesium sulfate, IV, Once melatonin 5 mg oral capsule, Oral, Once a day (at bedtime) Multi Vitamin+ niacin, Oral pravastatin Prolia 60 mg/mL subcutaneous solution, SubCutaneous, q6mo tiZANidine 4 mg Tab Vitamin B Complex oral capsule, Oral, Daily Vitamin C, Oral, Daily vitamin E, Oral Allergies Dilaudid (Nausea and vomiting) HYDROmorphone (Unknown) Latex (Rash) Oats (Nausea and vomiting) Tape (Rash) Vicodin (Nausea and vomiting) Social History Alcohol - Denies Alcohol Use, 06/28/2019 Tobacco Never (less than 100 in lifetime) Tobacco Use:. Never Smokeless Tobacco Use:. Household tobacco concerns: No. Yes, 12/02/2023 Family History Cancer: Aunt. Leukemia: Sister. Primary malignant neoplasm of lung: Father. Immunizations Vaccine Date Status Comments SARS-CoV-2 (COVID-19) [id number] 01/23/2022 Recorded influenza virus vaccine, inactivated 01/03/2022 Recorded SARS-CoV-2 (COVID-19) mRNA BNT-162b2 vax 01/22/2021 Recorded 2022-05-20: [id number] pneumococcal 23-valent vaccine 11/09/2020 Recorded SARS-CoV-2 (COVID-19) mRNA BNT-162b2 vax 06/16/2020 Recorded CLARITA (more content not included)... Normal [facility] Comment on above: Result Comment: Elec tronically Signed By: STACIE Espinoza APRN, [place] X\.br\Date and Time Signed: 12/02/23 15:58 EDT\.br\Electronically Co-Signed By: Micheal Garcia\.br\Date and Time Co-Signed: 12/02/23 15:24 EDT Main OR Intraoperative Recor don 10-21-2023 Main OR Intraoperative Record Main OR Intraoperative Record IntraOp Document Type FTURO Summary Primary Physician: Sandeep ARCHULETA MD Finalized Date/Time: 10/21/23 10:38:02 Pt. Name: PARTH POWERS/Sex: 1955 Female Med Rec #: [id number] Physician: Sandeep ARCHULETA MD Financial #: [id number] Pt. Type: O Room/Bed: / Admit/Disch: 10/21/23 07:47:17 - Institution: Case Times FTURO Entry 1 Patient Times In Room 10/21/23 10:17:00 Out Room 10/21/23 10:35:00 Procedure Times Start 10/21/23 10:24:00 Stop 10/21/23 10:29:00 Anesthesia Times Last Modified By: Ok LIVINGSTON, Dalia Geller 10/21/23 10:30:02 General Comments: BOTOX 100 UNITS LOT #: [id number], EXP DATE: 07/2025 -Margarito RALPH RN Case Attendance FTURO Entry 1 Entry 2 Entry 3 Case Attendee SERGIO DYKES, Sandeep Ralph RN, Sussy Olivares Role Performed Surgeon - Primary Inside Sales Lead - Primary Scrub - Primary Time In 10/21/23 10:17:00 10/21/23 10:17:00 10/21/23 10:17:00 Time Out 10/21/23 10:35:00 10/21/23 10:35:00 10/21/23 10:35:00 Procedure CYSTOSCOPY LOCAL BOTOX CYSTOSCOPY LOCAL BOTOX CYSTOSCOPY LOCAL BOTOX INJECTION(.) INJECTION(.) INJECTION(.) Comments Last Modified By: Ok LIVINGSTON, Dalia Ralph RN, Dalia Ralph RN, Dalia Geller 10/21/23 Marlin Geller 10/21/23 Marlin Geller 10/21/23 10:30:06 10:30:06 10:30:06 Surgical Procedures FTURO Entry 1 Procedure Description Procedure CYSTOSCOPY LOCAL BOTOX Modifiers . INJECTION Surgeon Description CYSTOSCOPY WITH BOTOX 100 UNITS Primary Procedure Yes Primary Surgeon SERGIO DYKES, Sandeep Simmons Start 10/21/23 10:24:00 Stop 10/21/23 10:29:00 Anesthesia Type Local Surgical Service Urology Wound Class 2 - Clean-Contaminated Last Modified By: Ok LIVINGSTON, Dalia Geller 10/21/23 10:30:05 General Case Data FTURO Pre-Care Text: Classifies surgical wound, implements aseptic technique, initiates traffic control Entry 1 Case Information OR URO 1 FT Case Level None Wound Class 2 - Clean-Contaminated Specialty Urology Preop Diagnosis URGE INCONTINENCE Postop Same As Preop Yes Postop Diagnosis URGE INCONTINENCE Outcomes Met? Yes Last Modified By: Ok LIVINGSTON, Dalia Geller 10/21/23 10:21:50 Post-Care Text: The patient is free from signs and symptoms of infection EU IntraOp - FTURO Pre-Care Text: Implements protective measures prior to operative or invasive procedure, confirms identity before the operative or invasive procedure, verifies operative procedure, surgical site, and laterality Entry 1 EU Perioperative Protocols Procedure(s) CYSTOSCOPY LOCAL BOTOX Patient Identity Birthday, ID Band INJECTION(.) Verified (select at Check, Patient least 2): Participation Consents / H and P HandP, Surgery/Procedure Operative Site N/A Verified Consent Marking Verified Surgical Site Yes Laterality Verified n/a Verified Procedure Verified Yes Correct Patient Yes Position Verified Availability Equipment, Medication Time Out Sandeep ARCHULETA MD, Verified (If Participants Ok LIVINGSTON, Dalia Applicable) Karthik Burton Laura C Time Out Complete 10/21/23 10:22:00 Allergies Reviewed? Yes Allergies Reviewed Self/Patient With Body Position High Lithotomy Prep Area PERINEAL AREA Prep Agents Betadine Solution Skin. Condition Unable to Visualize Description CLOTHED Additional None Specimens Collected Vitals - EU Blood Pressure 156/83 Pulse 65 bpm Respirations 14 br/min SPO2 97 % IandO - EU Outcomes Met? Yes Last Modified By: Dalia Ralph RN 10/21/23 10:26:15 Post-Care Text: The patient is free from signs and symptoms of injury caused by extraneous objects Sign Out FTURO Entry 1 Before Patient Leaves OR Nurse verbally Yes Nurse verbally Yes confirms with the confirms with the team the name of team that the procedure(s) instrument, sponge, recorded and needle counts are correct (or N/A) Nurse verbally n/a Nurse verbally Yes confirms with the confirms with the team how the team whether there specimen is labeled are any equipment (including patient problems to be name), if applicable addressed Sign Out Complete 10/21/23 10:30:00 Last Modified By: Dalia Ralph RN 10/21/23 10:30:05 Case Comments Finalized By: Dalia Ralph RN Document Signatures Signed By: Dalia Ralph RN 10/21/23 10:38 Normal [facility] Main OR Preoperative Recordo n 10-21-2023 Main OR Preoperative Record Main OR Preoperative Record Holding Area Document Type FTURO Summary Primary Physician: Sandeep ARCHULETA MD Finalized Date/Time: 10/21/23 10:03:41 Pt. Name: PRIYAPARTH/Sex: 1955 Female Med Rec #: [id number] Physician: Sandeep ARCHULETA MD Financial #: [id number] Pt. Type: O Room/Bed: / Admit/Disch: 10/21/23 07:47:17 - Institution: Case Times Holding FTURO Pre-Care Text: Verifies consent for planned procedure, identifies individual values and wishes concerning care, includes family members in perioperative teaching Secures patient's records' belongings, and valuables, maintains patient's dignity and privacy, and maintains patient confidentiality Entry 1 In Holding 10/21/23 09:48:00 Outcomes Met? Yes Last Modified By: HADLEY Shi RN, Ruthann 10/21/23 09:48:12 Post-Care Text: The patient participates in decisions affecting his or her perioperative plan of care The patient's right to privacy is maintained Surgery Checklist FTURO Entry 1 Patient Birthday, ID Band Procedure History and Physical, Identification: Check, Patient Verification: Surgical Consent, With Participation Patient NPO after Midnight: n/a Personal Items clothes Comment: Limitations: none Complaints of Pain: No Skin Integrity Unable to Visualize Vitals - EU Blood Pressure 156/83 Pulse 65 bpm Respirations 14 br/min SPO2 97 % Additional Other (See Comment) RN Reviewed Yes Specimens Collected Last Modified By: HADLEY Shi RN, Ruthann 10/21/23 09:50:10 General Comments: UA Finalized By: HADLEY Shi RN, Ruthann Document Signatures Signed By: HADLEY Shi RN, Ruthann 10/21/23 09:50 HADLEY Shi RN, Ruthann 10/21/23 09:58 HADLEY Shi RN, Ruthann 10/21/23 10:03 Normal [facility] Operative Reporton Operative Report Operative Report Patient: PARTH POWERS Age: 68 years Sex: Female : 1955 Associated Diagnoses: None Author: Sandeep ARCHULETA MD Procedure Operative Information Details: Date/ Time: 10/21/2023 10:33:00. Pre-Op Dx: Incont/Urge - N39.41. Post-Op Dx: Same. Anesthesia Type: Local. Procedure: Local Cystoscopy with botox injection. Complications: None. Risks/Benefits/Info rmed Consent: Surgical risks, benefits, details of the procedure have been explained to the patient, Full informed consent has been obtained. Intraoperative Information Prepped: Patient is brought back to the endoscopy suite, Male Prep, Female Prep (Patient is placed in modified dorso/lithotomy position, 5 cc 2% Xylocaine Jelly is placed per Urethra, Straight cath inserted to obtain urine specimen, 60 cc 2% Xylocaine liquid inserted into bladder, 5 additional cc 2% Xylocaine Jelly is placed per Urethra, Patient in sitting position for 20 min dwell), Urine Specimen Results Negative for infection, Patient prepped in the usual fashion with Betadine solution, After waiting several minutes the Cystoscope is introduced. Procedure: The trigone was identified and evaluated, 20 template injection sites were identified, The bladder was instilled with enough saline to achieve adequate visualization for the injections, The needle was inserted approximately 2 mm into the detrusor spaced approximately 1 cm apart, A total of 20 injections with a 0.5 ml volume was delivered at each site for a total of 100 units of Botox. The Urethra is: Normal. The Bladder is: Abnormal, No bladder tumor. Bladder was hypersensitive. 75% of Botox applications caused pain for her.. The ureteral orifices: Show efflux of clear urine. Devices Implanted: None. Removal: Cystoscope is removed, The patient tolerated it well. Postoperative Information Discharge: Patient is discharged home with antibiotic coverage, Follow up arranged. Normal [facility] Comment on above: Result Comment: Elec tronically Signed By: SERGIO DYKES, Sandeep Simmons\.jose francisco\Date and Time Signed: 10/21/23 10:34 EDT [place] 09-25-2023 Screens [id number] Normal [facility] Ambulatory Visit Summaryon 0 09-23-2023 Ambulatory Visit Summary PARTH POWERS :1955 Visit Date:09/23/2023 Ambulatory Visit Instructions Your Diagnosis Urge incontinence Stress incontinence Your Care Team Attending Physician - STACIE Espinoza APRN, Za Larson Primary Care Physician - DAVID BOLANOS MD This Is Your Medications List Misc Prescription (DONEPEZIL HYDROCHLORIDE) Non-Formulary Medication (fosamax) alendronate (alendronate 35 mg Tab) alpha-lipoic acid (Alpha Lipoic) ascorbic acid (Vitamin C) biotin calcium carbonate (calcium (as carbonate) 600 mg oral tablet) ferrous sulfate glucosamine (glucosamine hydrochloride 1500 mg oral tablet) losartan (losartan 25 mg Tab) magnesium sulfate melatonin (melatonin 5 mg oral capsule) multivitamin (Multi Vitamin+) multivitamin (Vitamin B Complex oral capsule) niacin omega-3 polyunsaturated fatty acids (Fish Oil) pravastatin tizanidine (tiZANidine 4 mg Tab) vitamin E Procedures Performed Injection of therapeutic substance into bladder wall (05/28/2022), Injection of therapeutic substance into bladder wall (02/06/2021), Cystoscopy (10/26/2019), Bilateral mastectomy (02/2019), Injection of therapeutic substance into bladder wall (02/17/2018), Injection of therapeutic substance into bladder wall (11/19/2016), [place] node biopsy (03/2012), Lumpectomy (02/2012), External beam radiotherapy (2011), Cystoscopy (04/11/2003), Urodynamics (04/11/2003), D&C - Dilatation and curettage, Excision of calcaneal spur. Discharge Vitals Heart Rate (Peripheral) 69 Respiratory Rate 16 Blood Pressure 140/85 Height 165 cm Height 65 in Weight 82 kg Weight 180.4 lb BMI 30.12 What to do next Scheduled Follow-Up Appointments Friday 8:45 AM EST With: SERGIO DYKES, Sandeep Simmons Where: [facility] Patient Educationon 09-23-19 Patient Education Obstetrics and Gynecology Overactive Bladder, Adult Overactive bladder is a condition in which a person has a sudden and frequent need to urinate. A person might also leak urine if he or she cannot get to the bathroom fast enough (urinary incontinence). Sometimes, symptoms can interfere with work or social activities. What are the causes? Overactive bladder is associated with poor nerve signals between your bladder and your brain. Your bladder may get the signal to empty before it is full. You may also have very sensitive muscles that make your bladder squeeze too soon. This condition may also be caused by other factors, such as: ? Medical conditions: ? Urinary tract infection. ? Infection of nearby tissues. ? Prostate enlargement. ? Bladder stones, inflammation, or tumors. ? Diabetes. ? Muscle or nerve weakness, especially from these conditions: ? A spinal cord injury. ? Stroke. ? Multiple sclerosis. ? Parkinson's disease. ? Other causes: ? Surgery on the uterus or urethra. ? Drinking too much caffeine or alcohol. ? Certain medicines, especially those that eliminate extra fluid in the body (diuretics). ? Constipation. What increases the risk? You may be at greater risk for overactive bladder if you: ? Are an older adult. ? Smoke. ? Are going through menopause. ? Have prostate problems. ? Have a neurological disease, such as stroke, dementia, Parkinson's disease, or multiple sclerosis (MS). ? Eat or drink alcohol, spicy food, caffeine, and other things that irritate the bladder. ? Are overweight or obese. What are the signs or symptoms? Symptoms of this condition include a sudden, strong urge to urinate. Other symptoms include: ? Leaking urine. ? Urinating 8 or more times a day. ? Waking up to urinate 2 or more times overnight. How is this diagnosed? This condition may be diagnosed based on: ? Your symptoms and medical history. ? A physical exam. ? Blood or urine tests to check for possible causes, such as infection. You may also need to see a health care provider who specializes in urinary tract problems. This is called a urologist. How is this treated? Treatment for overactive bladder depends on the cause of your condition and whether it is mild or severe. Treatment may include: ? Bladder training, such as: ? Learning to control the urge to urinate by following a schedule to urinate at regular intervals. ? Doing Kegel exercises to strengthen the pelvic floor muscles that support your bladder. ? Special devices, such as: ? Biofeedback. This uses sensors to help you become aware of your body's signals. ? Electrical stimulation. This uses electrodes placed inside the body (implanted) or outside the body. These electrodes send gentle pulses of electricity to strengthen the nerves or muscles that control the bladder. ? Women may use a plastic device, called a pessary, that fits into the vagina and supports the bladder. ? Medicines, such as: ? Antibiotics to treat bladder infection. ? Antispasmodics to stop the bladder from releasing urine at the wrong time. ? Tricyclic antidepressants to relax bladder muscles. ? Injections of botulinum toxin type A directly into the bladder tissue to relax bladder muscles. ? Surgery, such as: ? A device may be implanted to help manage the nerve signals that control urination. ? An electrode may be implanted to stimulate electrical signals in the bladder. ? A procedure may be done to change the shape of the bladder. This is done only in very severe cases. Follow these instructions at home: Eating and drinking ? Make diet or lifestyle changes recommended by your health care provider. These may include: ? Drinking fluids throughout the day and not only with meals. ? Cutting down on caffeine or alcohol. ? Eating a healthy and balanced diet to prevent constipation. This may include: ? Choosing foods that are high in fiber, such as beans, whole grains, and fresh fruits and vegetables. ? Limiting foods that are high in fat and processed sugars, such as fried and sweet foods. Lifestyle ? Lose weight if needed. ? Do not use any products that contain nicotine or tobacco. These include cigarettes, chewing tobacco, and vaping devices, such as e-cigarettes. If you need help quitting, ask your health care provider. General instructions ? Take hdqa-jhy-meybivx and prescription medicines only as told by your health care provider. ? If you were prescribed an antibiotic medicine, take it as told by your health care provider. Do not stop taking the antibiotic even if you start to feel better. ? Use any implants or pessary as told by your health care provider. ? If needed, wear pads to absorb urine leakage. ? Keep a log to track how much and when you drink, and when you need to urinate. This will help your health care provider monitor yo (more content not included)... Normal [facility] CNOVSPon 07-01-2023 [facility] Visit (SP) Office (KELLY) ---- PARTH POWERS ([id number]) 1955 F Date Time Provider Department 07/01/23 [...] ORAL) Take by mouth once daily. Fish Oil-[place]-3 Fatty Acids (FISH OIL) 340-1,000 mg cap [...] No Submandibular (more content not included)... Normal [facility] Ambulatory Visit Summaryon 0 05-05-2023 Ambulatory Visit Summary PARTH POWERS :1955 Visit Date:05/05/2023 Ambulatory Visit Instructions Your Diagnosis Urge incontinence Tests Performed Urnls Dip Stick Auto w/o Microscopy POC 63560 Your Care Team Attending Physician - SERGIO DYKES, Sandeep Simmons Primary Care Physician - LUIS MIGUEL DYKES, DAVID This Is Your Medications List Contact prescribing [...] of therapeutic substance into bladder wall (11/19/2016), [place] node biopsy (03/2012), Lumpectomy (02/2012), External beam [...] Sandeep ARCHULETA MD Where: [facility] Ciro Mckee [facility] Patient Educationon 05-05-19 24 Patient Education Urology [...] including vitamins, herbs, eye drops, creams, and gaeb-nwf-aqkzvzv medicines. ? Any problems you or family [...] tells you to take them. ? Taking hudz-jal-doakqhb medicines, vitamins, herbs, and supplements. General instructions [...] these instructions at home: Medicines ? Take rtoa-qkb-hibfwqj and prescription medicines only as told by [...] ca (more content not included)... Normal [facility] Urology Office/Clinic Noteon 05-05-2023 Urology Office/Clinic Note [...] In 1 year [facility] [address], [place] [phone] Additional Instructions: 1 year f/u She will call for Botox Patient Education Botulinum Toxin Bladder Injection Urinary Incontinence I, Antonina Uribe, personally scribed for Dr. Archuleta on 05/05/2023 09:00:14. . Documentation recorded by the scribe, makayla Uribe, accurately reflects the services(s) I performed and decisions made by me. Authenticated by Dr. Archuleta on 05/05/2023 09:04:27. Problem List/Past Medical History Ongoing Anticoagulated Aspirin long-term use Eczema Esophageal reflux History of breast cancer Hyperlipidemia Hypertension [facility]PC current use of anticoagulant therapy Mixed incontinence Neuropathy Urge incontinence Urinary urgency Historical No qualifying data Procedure/Surgical History Injection of therapeutic substance into bladder wall (05/28/2022), Injection of therapeutic substance into bladder wall (02/06/2021), Cystoscopy (10/26/2019), Bilateral mastectomy (02/2019), Injection of therapeutic substance into bladder wall (02/17/2018), Injection of therapeutic substance into bladder wall (11/19/2016), [place] node biopsy (03/2012), Lumpectomy (02/2012), External beam radiotherapy (2011), Cysto (more content not included)... Normal [facility] Comment on above: Result Comment: Elec tronically [...] IVÁN REY Date: 2022-06-26 14:15 [address] [facility] Basophils Auto (Bld) [#/Vol] Ordered By: Regina Biggs on 05-01-2022 Basophils (Bld) [#/Vol] 0.0 10*3/uL 0.0-0.2 [facility] Basophils/100 WBC Auto (Bld) Ordered By: Regina Biggs on 05-01-2022 Basophils/100 WBC (Bld) 0.5 % . [facility] Body fluid albumin measureme nt (mass/volume)Ordered By: Regina Biggs on 05-01-2022 Albumin (Body fld) [Mass/Vol] 4.0 g/dL 3.2-5.5 [facility] Complete Blood Count Auto Di ffon 05-01-2022 Basophils (Bld) [#/Vol] 0.0 10*3/uL Normal 0.0-0.2 [facility] Comment on above: Result Comment: PERF ORMED BY: [place] [address] PATHOLOGIST FORMING YARDAGE CONTROL OPERATOR ARUNA CODY M.D. Performed By: #### C BC, CMP #### [address] Basophils/100 WBC (Bld) 0.5 % Normal . [facility] Comment on above: Performed By: #### C BC, CMP #### [address] Eosinophils (Bld) [#/Vol] 0.1 10*3/uL Normal 0.0-0.45 [facility] Comment on above: Performed By: #### C BC, CMP #### [address] Eosinophils/100 WBC (Bld) 2.1 % Normal . [facility] Comment on above: Performed By: #### C BC, CMP #### [address] Erythrocyte distribution width (RBC) [Ratio] 14.6 % Normal 11.9-15.3 [facility] Comment on above: Performed By: #### C BC, CMP #### [address] Hematocrit (Bld) [Volume fraction] 41.0 % Normal 34.0-46.4 [facility] Comment on above: Performed By: #### C BC, CMP #### [facility] [address] Hemoglobin (Bld) [Mass/Vol] 13.6 g/dL Normal 11.8-15.4 [facility] Comment on above: Performed By: #### C BC, CMP #### [facility] [address] Lymphocytes (Bld) [#/Vol] 1.9 10*3/uL Normal 1.00-4.8 [facility] Comment on above: Performed By: #### C BC, CMP #### [address] Lymphocytes/100 WBC (Bld) 34.2 % Normal . [facility] Comment on above: Performed By: #### C BC, CMP #### [address] MCH (RBC) [Entitic mass] 32.1 pg Normal 24.7-34.3 [facility] Comment on above: Performed By: #### C BC, CMP #### [address] MCV (RBC) [Entitic vol] 96.4 fL Normal 80-100 [facility] Comment on above: Performed By: #### C BC, CMP #### [address] Mean Corpuscular HGB Conc 33.3 g/dL Normal 32.0-35.0 [facility] Comment on above: Performed By: #### C BC, CMP #### [address] Monocytes (Bld) [#/Vol] 0.6 10*3/uL Normal 0.0-0.8 [facility] Comment on above: Performed By: #### C BC, CMP #### [address] Monocytes/100 WBC (Bld) 10.7 % Normal . [facility] Comment on above: Performed By: #### C BC, CMP #### [facility] [address] Neutrophils (Bld) [#/Vol] 3.0 10*3/uL Normal 1.8-7.7 [facility] Comment on above: Performed By: #### C BC, CMP #### [facility] [address] Neutrophils/100 WBC (Bld) 52.5 % Normal . [facility] Comment on above: Performed By: #### C BC, CMP #### [facility] [address] NRBC% 0.2 /100{WBC} Normal 0-0.5 [facility] Comment on above: Performed By: #### C BC, CMP #### [facility] [address] Platelet mean volume (Bld) [Entitic vol] 8.5 fL Normal 6.3-10.7 [facility] Comment on above: Performed By: #### C BC, CMP #### [facility] [address] [place] [address] [place] Platelets (Bld) [#/Vol] 273 10*3/uL Normal 150-450 [facility] Comment on above: Performed By: #### C BC, CMP #### [facility] [address] RBC (Bld) [#/Vol] 4.25 10*6/uL Normal 3.60-5.00 [facility] Comment on above: Performed By: #### C BC, CMP #### [facility] [address] [place] [address] [place] WBC (Bld) [#/Vol] 5.7 10*3/uL Normal 3.8-11.6 [facility] Comment on above: Performed By: #### C BC, CMP #### [facility] [address] Comprehensive Metabolic Pane callie 05-01-2022 Albumin [Mass/Vol] 4.0 g/dL Normal 3.2-5.5 [facility] Comment on above: Performed By: #### C BC, CMP #### [address] Albumin/Globulin [Mass ratio] 1.7 {ratio} Normal [facility] Comment on above: Performed By: #### C BC, CMP #### [address] ALP [Catalytic activity/Vol] 46 U/L Normal 32-92 [facility] Comment on above: Result Comment: PERF ORMED BY: [place] [address] PATHOLOGIST FORMING YARDAGE CONTROL OPERATOR ARUNA CODY M.D. Performed By: #### C BC, CMP #### [address] ALT [Catalytic activity/Vol] 29 U/L Normal 10-60 [facility] Comment on above: Performed By: #### C BC, CMP #### [address] Anion gap [Moles/Vol] 11.6 mmol/L Normal 6.0-15.0 [facility] Comment on above: Performed By: #### C BC, CMP #### [address] AST [Catalytic activity/Vol] 27 U/L Normal 10-42 [facility] Comment on above: Performed By: #### C BC, CMP #### [place] [address] [place] Bilirubin [Mass/Vol] 0.4 mg/dL Normal 0.3-1.2 [facility] Comment on above: Performed By: #### C BC, CMP #### [address] Calcium [Mass/Vol] 9.8 mg/dL Normal 8.2-10.2 [facility] Comment on above: Performed By: #### C BC, CMP #### [facility] [address] Chloride [Moles/Vol] 97 mmol/L Normal 95-114 [facility] Comment on above: Performed By: #### C BC, CMP #### [facility] [address] CO2 [Moles/Vol] 28.4 mmol/L Normal 22.0-30.0 [facility] Comment on above: Performed By: #### C BC, CMP #### [facility] [address] Creatinine [Mass/Vol] 0.50 mg/dL Normal 0.44-1.03 [facility] Comment on above: Performed By: #### C BC, CMP #### [facility] [address] Estimated GFR ( Maria Fernanda > 60 [facility] Comment on above: Result Comment: GFR estimated reference range: According to KDOQI guidelines, <60 ml/min/1.73m2 is sufficient to diagnose a patient with chronic kidney disease. Performed By: #### C BC, CMP #### [address] Estimated GFR (Non- Am > 60 [facility] Comment on above: Performed By: #### C BC, CMP #### [address] Globulin (S) [Mass/Vol] 2.4 g/dL Normal [facility] Comment on above: Performed By: #### C BC, CMP #### [facility] [address] Glucose [Mass/Vol] 96 mg/dL Normal 70-100 [facility] Comment on above: Result Comment: [place] Glucose Reference Range is dependent on time and content of last meal. Glucose of more than 200 mg/dL in a nonstressed, ambulatory subject supports the diagnosis of Diabetes Mellitus. ADA recommended reference range Performed By: #### C BC, CMP #### [place] [address] [place] Potassium [Moles/Vol] 4.0 mmol/L Normal 3.5-5.1 [facility] Comment on above: Performed By: #### C BC, CMP #### [facility] [address] Protein [Mass/Vol] 6.4 g/dL Normal 6.1-7.9 [facility] Comment on above: Performed By: #### C BC, CMP #### [facility] [address] Sodium [Moles/Vol] 133 mmol/L Low 136-146 [facility] Comment on above: Performed By: #### C BC, CMP #### [facility] [address] Urea nitrogen [Mass/Vol] 15 mg/dL Normal 9-23 [facility] Comment on above: Performed By: #### C BC, CMP #### [facility] [address] Creatinine and Glomerular fi ltration rate.predicted panel (S/P/Bld)Ordered By: Regina Biggs on 05-01-2022 Creatinine [Mass/Vol] 0.50 mg/dL 0.44-1.03 [facility] ECG 12 lead ECGon 05-01-2022 ECG 12 lead ECG [facility] [place] [address] [place] [address] Electrocardiograph Report Signed Patient: Parth Powers MR#: [id number] 80 : 1955 Acct:[id number] Age/Sex: 66 / F ADM Date: 05/01/22 Loc: Room: Type: [facility] Attending Dr: Regina Biggs MD Ordering [...] MD Transcribed By: MUS Signed By Stacey Coyne MD 0930 Normal [facility] Eosinophils Auto (Bld) [#/Vo l]Ordered By: Regina Biggs on 05-01-2022 Eosinophils (Bld) [#/Vol] 0.1 10*3/uL 0.0-0.45 [facility] Eosinophils/100 WBC Auto (Bl d)Ordered By: Regina Biggs on 05-01-2022 Eosinophils/100 WBC (Bld) 2.1 % . [facility] Erythrocyte distribution wid th Auto (RBC) [Ratio]Ordered By: Regina Biggs on 05-01-2022 Erythrocyte distribution width (RBC) [Ratio] 14.6 % 11.9-15.3 [facility] Estimated glomerular filtrat ion rate (GFR) non- AmericanOrdered By: Regina Biggs on 05-01-2022 GFR/1.73 sq M.predicted among non-blacks MDRD (S/P/Bld) [Vol rate/Area] > 60 mL/Min [facility] Globulin Calc (S) [Mass/Vol] Ordered By: Regina Biggs on 05-01-2022 Globulin (S) [Mass/Vol] 2.4 g/dL [facility] Hematocrit Auto (Bld) [Volum e fraction]Ordered By: Regina Biggs on 05-01-2022 Hematocrit (Bld) [Volume fraction] 41.0 % 34.0-46.4 [facility] Hemoglobin [Mass/volume] in BloodOrdered By: Regina Biggs on 05-01-2022 Hemoglobin (Bld) [Mass/Vol] 13.6 g/dL 11.8-15.4 [facility] Leukocytes [#/volume] correc camilo for nucleated erythrocytes in Blood by Automated counOrdered By: Regina Biggs on 05-01-2022 WBC corrected for nucl RBC Auto (Bld) [#/Vol] 5.7 10*3/uL 3.8-11.6 [facility] Lymphocytes Auto (Bld) [#/Vo l]Ordered By: Regina Biggs on 05-01-2022 Lymphocytes (Bld) [#/Vol] 1.9 10*3/uL 1.00-4.8 [facility] Lymphocytes/100 WBC Auto (Bl d)Ordered By: Regina Biggs on 05-01-2022 Lymphocytes/100 WBC (Bld) 34.2 % . [facility] MCH Auto (RBC) [Entitic mass ]Ordered By: Regina Biggs on 05-01-2022 MCH (RBC) [Entitic mass] 32.1 pg 24.7-34.3 [facility] MCHC Auto (RBC) [Mass/Vol]Or dered By: Regina Biggs on 05-01-2022 MCHC (RBC) [Mass/Vol] 33.3 g/dL 32.0-35.0 [facility] MCV Auto (RBC) [Entitic vol] Ordered By: Regina Biggs on 05-01-2022 MCV (RBC) [Entitic vol] 96.4 fL 80-100 [facility] Monocytes Auto (Bld) [#/Vol] Ordered By: Regina Biggs on 05-01-2022 Monocytes (Bld) [#/Vol] 0.6 10*3/uL 0.0-0.8 [facility] Monocytes/100 WBC Auto (Bld) Ordered By: Regina Biggs on 05-01-2022 Monocytes/100 WBC (Bld) 10.7 % . [facility] Neutrophils Auto (Bld) [#/Vo l]Ordered By: Regina Biggs on 05-01-2022 Neutrophils (Bld) [#/Vol] 3.0 10*3/uL 1.8-7.7 [facility] Neutrophils/100 WBC Auto (Bl d)Ordered By: Regina Biggs on 05-01-2022 Neutrophils/100 WBC (Bld) 52.5 % . [facility] No Panel InformationOrdered By: Regina Biggs on 05-01-2022 Estimated GFR () > 60 mL/Min [facility] Comment on above: GFR estimated refere nce range: According to KDOQI guidelines, <60 ml/min/1.73m2 is sufficient to diagnose a patient with chronic kidney disease. Pharmacy Creatinine Clearance (Chem N/A [facility] Nucleated erythrocytes [Pres ence] in Blood by Automated countOrdered By: Regina Biggs on 05-01-2022 Nucleated RBC Auto Ql (Bld) 0.2 /100{WBC} 0-0.5 [facility] Platelet mean volume Auto (B ld) [Entitic vol]Ordered By: Regina Biggs on 05-01-2022 Platelet mean volume (Bld) [Entitic vol] 8.5 fL 6.3-10.7 [facility] Platelets Auto (Bld) [#/Vol] Ordered By: Regina Biggs on 05-01-2022 Platelets (Bld) [#/Vol] 273 10*3/uL 150-450 [facility] Protein [Mass/volume] in Ser um or PlasmaOrdered By: Regina Biggs on 05-01-2022 Protein [Mass/Vol] 6.4 g/dL 6.1-7.9 [facility] RBC Auto (Bld) [#/Vol]Ordere d By: Regina Biggs on 05-01-2022 RBC (Bld) [#/Vol] 4.25 10*6/uL 3.60-5.00 [facility] Serum or plasma alanine palumbo otransferase measurement without P-5'-P (enzymatic activiOrdered By: Regina Biggs on 05-01-2022 ALT No additional P-5'-P [Catalytic activity/Vol] 29 U/L 10-60 [facility] Serum or plasma albumin/glob ulin mass ratioOrdered By: Regina Biggs on 05-01-2022 Albumin/Globulin [Mass ratio] 1.7 {ratio} [facility] Serum or plasma alkaline juan sphatase measurement (enzymatic activity/volume)Ordered By: Regina Biggs on 05-01-2022 ALP [Catalytic activity/Vol] 46 U/L 32-92 [facility] Serum or plasma anion gap de terminationOrdered By: Regina Biggs on 05-01-2022 Anion gap [Moles/Vol] 11.6 mmol/L 6.0-15.0 [facility] Serum or plasma aspartate am inotransferase measurement (enzymatic activity/volume)Ordered By: Regina Biggs on 05-01-2022 AST [Catalytic activity/Vol] 27 U/L 10-42 [facility] Serum or plasma calcium gisele urement (mass/volume)Ordered By: Regina Biggs on 05-01-2022 Calcium [Mass/Vol] 9.8 mg/dL 8.2-10.2 [facility] Serum or plasma chloride christiane surement (moles/volume)Ordered By: Reigna Biggs on 05-01-2022 Chloride [Moles/Vol] 97 mmol/L 95-114 [facility] Serum or plasma glucose gisele urement (mass/volume)Ordered By: Regina Biggs on 05-01-2022 Glucose [Mass/Vol] 96 mg/dL 70-100 [facility] Comment on above: ADA recommended refe rence rangeRandom Glucose Reference Range is dependent on time and content of last meal. Glucose of more than 200 mg/dL in a nonstressed, ambulatory subject supports the diagnosis of Diabetes Mellitus. Serum or plasma potassium me asurement (moles/volume)Ordered By: Regina Biggs on 05-01-2022 Potassium [Moles/Vol] 4.0 mmol/L 3.5-5.1 [facility] Serum or plasma sodium measu rement (moles/volume)Ordered By: Regina Biggs on 05-01-2022 Sodium [Moles/Vol] 133 mmol/L 136-146 [facility] Serum or plasma total biliru bin measurement (mass/volume)Ordered By: Regina Biggs on 05-01-2022 Bilirubin [Mass/Vol] 0.4 mg/dL 0.3-1.2 [facility] Serum or plasma total carbon dioxide measurement (moles/volume)Ordered By: Regina Biggs on 05-01-2022 CO2 [Moles/Vol] 28.4 mmol/L 22.0-30.0 [facility] Serum or plasma urea nitroge n measurement (mass/volume)Ordered By: Regina Biggs on 05-01-2022 Urea nitrogen [Mass/Vol] 15 mg/dL 01-04 [facility] WBC Auto (Bld) [#/Vol]Ordere d By: Regina Biggs on 05-01-2022 WBC (Bld) [#/Vol] 5.7 10*3/uL 3.8-11.6 [facility] XR chest 2V*on 05-01-2022 XR chest 2V* [facility] [place] [address] [place] [address] XRay Report Signed Patient: Parth Powers MR#: [id number] 80 : 1955 Acct:[id number] Age/Sex: 66 / F ADM Date: 05/01/22 Loc: Room: Type: [facility] Attending Dr: Regina Biggs MD Copies to: [...] Chilango Case M.D.05/01/2022 4:55 PM Dictation Location: [place] [address] Transcribed By: [facility] 05/01/221654 Dictated By: Chilango Case II, MD 05/01/221654 Signed By: 05/01/221654 Normal [facility] Covid-19 PCR (CVDTBH)on 03-16 SARS-CoV-2 (COVID-19) RNA DOUG+probe Ql (Unsp spec) Not detected Normal NOT DETECTED [facility] Comment on above: Result Comment: This test is not yet approved or cleared by the [place] FDA. When there are no FDA-approved or cleared tests available, and other criteria are met, FDA can make tests available under an emergency access mechanism called an Emergency Use Authorization (EUA). The EUA for this test is supported by the Car Dumper Operator Helper of Health and Human Service's (HHS's) declaration [...] consistent with SARS-CoV-2. Performed By: #### [facility] #### [facility] [address] [place] [address] Dr. Man Ortiz XR LSPINE MIN 4 [...] by: GILLES JIMENEZ Date: 2021-12-19 18:42 Normal [facility] CBC AUTO DIFFon 11-12-2021 BASO # 0.0 103/ul Normal 0.0-0.1 [facility] Comment on above: Performed By: #### C BC #### [facility] [address] [place] [address] Dr. Man Ortiz Basophils/100 WBC (Bld) 0.4 % Normal 0.2-2.0 [facility] Comment on above: Performed By: #### C BC #### [facility] [address] [place] [address] [address] Man Ortiz EO # 0.1 103/ul Normal 0.0-0.7 [facility] Comment on above: Performed By: #### C BC #### [facility] [address] [place] [address] Dr. Man Ortiz Eosinophils/100 WBC (Bld) 1.6 % Normal 0.9-7.0 [facility] Comment on above: Performed By: #### C BC #### [facility] [address] [place] [address] Dr. Man Ortiz Erythrocyte distribution width (RBC) [Ratio] 15.1 % Critically high 11.0-15.0 [facility] Comment on above: Performed By: #### C BC #### [facility] [address] [place] [address] Dr. Man Ortiz Hematocrit (Bld) [Volume fraction] 37.8 % Normal 36.0-48.0 [facility] Comment on above: Performed By: #### C BC #### [facility] [address] [place] [address] Dr. Man Ortiz Hemoglobin (Bld) [Mass/Vol] 12.8 g/dL Normal 12.0-16.0 [facility] Comment on above: Performed By: #### C BC #### [facility] [address] [place] [address] Dr. Man Ortiz IG # 0.02 10e3/ul Normal 0.00-0.[address] [facility] Comment on above: Performed By: #### C BC #### [facility] [address] [place] [address] Dr. Man Ortiz IG % 0.4 % Normal 0.0-0.5 [facility] Comment on above: Performed By: #### C BC #### [facility] [address] [place] [address] Dr. Man Ortiz LYMPH # 0.6 103/ul Critically low 1.2-3.8 [facility] Comment on above: Performed By: #### C BC #### [facility] [address] [place] [address] Dr. Man Ortiz Lymphocytes/100 WBC (Bld) 12.0 % Critically low 20.5-60.0 [facility] Comment on above: Performed By: #### C BC #### [facility] [address] [place] [address] Dr. Man Ortiz MANUAL DIFF REQ NO Normal [facility] Comment on above: Performed By: #### C BC #### [facility] [address] [place] [address] Dr. Man Ortiz MCH (RBC) [Entitic mass] 32.7 pg Normal 26.7-34.0 [facility] Comment on above: Performed By: #### C BC #### [facility] [address] [place] [address] Dr. Man Ortzi MCHC (RBC) [Mass/Vol] 33.9 g/dL Normal 29.9-35.2 [facility] Comment on above: Performed By: #### C BC #### [facility] [address] [place] [address] Dr. Man Ortiz MCV (RBC) [Entitic vol] 96.7 fL Normal 81.0-99.0 [facility] Comment on above: Performed By: #### C BC #### [facility] [address] [place] [address] Dr. Man Ortiz MONO # 0.7 103/ul Normal 0.3-0.8 [facility] Comment on above: Performed By: #### C BC #### [facility] [address] [place] [address] Dr. Man Ortiz Monocytes/100 WBC (Bld) 14.9 % Critically high 1.7-12. 0 [facility] Comment on above: Performed By: #### C BC #### [facility] [address] [place] [address] Dr. Man Ortiz NEUT # 3.5 103/ul Normal 1.4-6.5 [facility] Comment on above: Performed By: #### C BC #### [facility] [address] [address] [address] Man Ortiz Neutrophils/100 WBC (Bld) 70.7 % Normal 43.0-75.0 [facility] Comment on above: Performed By: #### C BC #### [facility] [address] [address] [address] Man Ortiz Platelet mean volume (Bld) [Entitic vol] 9.8 fL Normal 9.5-13.5 [facility] Comment on above: Performed By: #### C BC #### [facility] [address] [address] [address] Man Ortiz PLT 232 103/ul Normal 150-450 [facility] Comment on above: Performed By: #### C BC #### [facility] [address] [address] [address] Man Ortiz RBC 3.91 106/ul Critically low 4.20-5.40 [facility] Comment on above: Performed By: #### C BC #### [facility] [address] [address] [address] Man Ortiz WBC 5.0 103/ul Normal 4.0-11.0 [facility] Comment on above: Performed By: #### C BC #### [facility] [address] [address] [address] Man Ortiz GLYCOHEMOGLOBIN A1Con 2021 ADA RECOMMENDATION SEE BELOW Normal [facility] Comment on above: Result Comment: ADA RECOMMENDED LIMIT 4.0 - 6.0 ADA THERAPEUTIC TARGET < 7.0 ACTION SUGGESTED > 7.0 Performed By: #### A 1C ####[facility] [address] [place] [id number]. Man Ortiz Glucose [Mass/Vol] 134 mg/dL Normal [facility] Comment on above: Performed By: #### A 1C ####[facility] [address] [place], [place] [address]XsDr. Man Ortiz HbA1c (Bld) [Mass fraction] 6.3 % Critically high 4.5-6.2 [facility] Comment on above: Performed By: #### A 1C ####[facility] [address] [place], [place] [address]Wa. Man Ortiz LIPID PROFILEon 11-12-2021 CHOL-HDL RATIO NORM SEE BELOW Normal [facility] Comment on above: Result Comment: 3.3 - 4.4 LOW RISK 4.4 - 7.1 AVERAGE RISK 7.1 - 11.0 MODERATE RISK >11.0 HIGH RISK Performed By: #### C MP, LIPID ####[facility] [address] [place], [place] [address]Ne. Man Ortiz Cholesterol [Mass/Vol] 233 mg/dL Critically high <=200 [facility] Comment on above: Performed By: #### C MP, LIPID ####[facility] [address] [place] [id number]. Man Ortiz Cholesterol in HDL [Mass/Vol] 61 mg/dL Critically high 40-60 [facility] Comment on above: Performed By: #### C MP, LIPID ####[facility] [address] [place] [id number]. Man Ortiz Cholesterol in LDL [Mass/Vol] 123.6 mg/dL Normal [facility] Comment on above: Performed By: #### C MP, LIPID ####[facility] [address] [place], [place] [address]Vo. Man Ortiz Cholesterol.total/Mickie sterol in HDL [Mass ratio] 3.8 {ratio} Normal [facility] Comment on above: Performed By: #### C MP, LIPID ####[facility] [address] [place] [id number]. Man Ortiz HDL NORMAL > or = 60 mg/dl - LOW CARDIOVASCULAR RISK <40 mg/dl - HIGH CARDIOVASCULAR RISK Normal [facility] Comment on above: Performed By: #### C MP, LIPID ####[facility] [address] [place] [id number]. Man Ortiz LDL CALC NORMAL SEE BELOW Normal [facility] Comment on above: Result Comment: <100 mg/dl OPTIMAL 100 - 129 mg/dl NEAR OR ABOVE OPTIMAL 130 - 159 mg/dl BORDERLINE HIGH 160 - 189 mg/dl HIGH >190 mg/dl VERY HIGH Performed By: #### C MP, LIPID ####[facility] [address] [place] [id number]. Man Ortiz Triglyceride [Mass/Vol] 242 mg/dL Critically high <=150 [facility] Comment on above: Performed By: #### C MP, LIPID ####[facility] [address] [place] [id number]. Man Ortiz VLDL CALC 48.4 mg/dL Normal [facility] Comment on above: Performed By: #### C MP, LIPID ####[facility] [address] [place] [id number]. Man Ortiz PROF 14(COMP METB)on 022 Albumin [Mass/Vol] 3.7 g/dL Normal 3.4-5.0 [facility] Comment on above: Performed By: #### C MP, LIPID ####[facility] [address] [place] [address]Dr. Man Ortiz Albumin/Globulin [Mass ratio] 1.2 {ratio} Normal [facility] Comment on above: Performed By: #### C MP, LIPID ####[facility] [address] [address]Dr. Man Ortiz ALP [Catalytic activity/Vol] 36 U/L Critically low 46-116 [facility] Comment on above: Performed By: #### C MP, LIPID ####[facility] [address] [place] [address]Dr. Man Ortiz ALT [Catalytic activity/Vol] 46 U/L Normal 14-59 [facility] Comment on above: Performed By: #### C MP, LIPID ####[facility] [address] [place] [id number]. Man Ortiz Anion gap [Moles/Vol] 13.5 mmol/L Normal [facility] Comment on above: Performed By: #### C MP, LIPID ####[facility] [address] [place] [phone]. Man Ortiz AST [Catalytic activity/Vol] 33 U/L Normal 15-37 [facility] Comment on above: Performed By: #### C MP, LIPID ####[facility] [address] [place] [address]Dr. Man Ortiz Bilirubin [Mass/Vol] 0.5 mg/dL Normal 0.2-1.0 [facility] Comment on above: Performed By: #### C MP, LIPID ####[facility] [address] [place] [address]Dr. Man Ortiz Calcium [Mass/Vol] 8.9 mg/dL Normal 8.5-10.1 [facility] Comment on above: Performed By: #### C MP, LIPID ####[facility] [address] [place], [place] [address]Dr. Man Ortiz Chloride [Moles/Vol] 101 mmol/L Normal 98-107 [facility] Comment on above: Performed By: #### C MP, LIPID ####[facility] [address] [place], [place] [address]Dr. Man Ortiz CO2 [Moles/Vol] 28.5 mmol/L Normal 21.0-32.0 [facility] Comment on above: Performed By: #### C MP, LIPID ####[facility] [address] [place], [place] [address]Dr. Man Ortiz Creatinine [Mass/Vol] 0.62 mg/dL Normal 0.55-1.02 [facility] Comment on above: Performed By: #### C MP, LIPID ####[facility] [address] [place], [place] [address]Dr. Man Angel EGFR-AF ERITREAN >60 Normal >=60 [facility] Comment on above: Performed By: #### C MP, LIPID ####[facility] [address] [place], [place] [address]Dr. Man Ortiz EGFR-NON AF ERITREAN >60 Normal >=60 [facility] Comment on above: Performed By: #### C MP, LIPID ####[facility] [address] [place], [place] [address]Dr. Hallieruma Ortiz Globulin (S) [Mass/Vol] 3.2 g/dL Normal [facility] Comment on above: Performed By: #### C MP, LIPID ####[facility] [address] [place] [address]Dr. Man Ortiz Glucose [Mass/Vol] 114 mg/dL Critically high 74-106 [facility] Comment on above: Performed By: #### C MP, LIPID ####[facility] [address] [place] [address]Dr. Man Ortiz Potassium [Moles/Vol] 4.0 mmol/L Normal 3.5-5.1 [facility] Comment on above: Performed By: #### C MP, LIPID ####[facility] [address] [place] [address]Dr. Man Ortiz Protein [Mass/Vol] 6.9 g/dL Normal 6.4-8.2 [facility] Comment on above: Performed By: #### C MP, LIPID ####[facility] [address] [place] [address]Dr. Man Ortiz Sodium [Moles/Vol] 139 mmol/L Normal 136-145 [facility] Comment on above: Performed By: #### C MP, LIPID ####[facility] [address] [place], [place] [address]Dr. Man Ortiz Urea nitrogen [Mass/Vol] 12.0 mg/dL Normal 7.0-18.0 [facility] Comment on above: Performed By: #### C MP, LIPID ####[facility] [address] [place] [address]Dr. Man Ortiz Urea nitrogen/Creatinine [Mass ratio] 19.4 mg/mg Normal [facility] Comment on above: Performed By: #### C MP, LIPID ####[facility] [address] [place], [place] [address]Dr. Man Ortiz XR DEXA BONE DENSITYon 10-09 XR DEXA BONE DENSITY EXAMINATION: XR DEXA BONE DENSITY, 10/09/2021 9:59 AM EDT HISTORY: Menopause present COMPARISON: 2019, 2017, 2015 TECHNIQUE: Dual-energy X-ray absorptiometry (DEXA) [...] by: GILLES JIMENEZ Date: 2021-10-09 17:05 Normal [facility] PAP ACOG PANEL 2: 30 to 65on 09-08-2021 . . Normal [facility] Comment on above: Result Comment: Perf ormed at: BA Performed By: #### [id number] #### [facility] [address] [place] [address] Dr. Man Ortiz Age Gdln ACOG Testing Comment Normal [facility] Comment on above: Result Comment: <21 or >65 or no age provided Performed By: #### [id number] #### [facility] [address] [place] [address] Dr. Man Ortiz DIAGNOSIS: Comment Normal [facility] Comment on above: Result Comment: NEGA TIVE FOR INTRAEPITHELIAL LESION OR MALIGNANCY. CELLULAR CHANGES ASSOCIATED WITH ATROPHY ARE PRESENT. Performed at: [facility] Performed By: #### [id number] #### [facility] [address] [place] [address] Dr. Man Ortiz Methodology: Comment [facility] Comment on above: Result Comment: This liquid based ThinPrep(R) pap test was screened with the use of an image guided system. Performed at: WB Performed By: #### [id number] #### [facility] [address] [place] [address] Dr. Man Ortiz Note: Comment [facility] Comment on above: Result Comment: The Pap smear is a screening test designed to aid in the detection of premalignant and malignant conditions of the uterine cervix. It is not a diagnostic procedure and should not be used as the sole means of detecting cervical cancer. Both false-positive and false-negative reports do occur. . Performed at: WB Performed By: #### [id number] #### [facility] [address] [address] [address] Man Ortiz Performed by: Comment Normal [facility] Comment on above: Result Comment: Uvaldo Wood, Institution Librarian (ASCP) Performed at: BA Performed By: #### [id number] #### [facility] [address] [place], [place] [address] Dr. Man Ortiz Specimen adequacy: Comment Normal [facility] Comment on above: Result Comment: Sati sfactory for evaluation. Endocervical component may not be distinguished in cases of atrophy. Performed at: BA Performed By: #### [id number] #### [facility] [address] [address] [address] Man Ortiz XR hip RT min 2V(w/wo pelvis )*on 01-17-2021 XR hip RT min 2V(w/wo pelvis)* [facility] Other XR hip RT min 2V(w/wo pelvis)* [facility] Other XR hip RT min 2V(w/wo pelvis)* [address] [place] [address] [facility] Other XR hip RT min 2V(w/wo pelvis)* [place] [address] [facility] Other XR hip RT min 2V(w/wo pelvis)* XRay Report [facility] Other XR hip RT min 2V(w/wo pelvis)* Signed [facility] Other XR hip RT min 2V(w/wo pelvis)* Patient: Parth Powers MR#: [id number] [facility] Other XR hip RT min 2V(w/wo pelvis)* 82 [facility] Other XR hip RT min 2V(w/wo pelvis)* : 1955 Acct:[id number] [facility] Other XR hip RT min 2V(w/wo pelvis)* Age/Sex: 65 / F ADM Date: 01/17/21 [facility] Other XR hip RT min 2V(w/wo pelvis)* Loc: [facility] Room: Type: [facility] Other XR hip RT min 2V(w/wo pelvis)* Attending Dr: Stacey Vigil MD [facility] Other XR hip RT min 2V(w/wo pelvis)* Ordering Provider: Stacey Vigil MD [facility] Other XR hip RT min 2V(w/wo pelvis)* Date of Service: 01/17/21 [facility] Other XR hip RT min 2V(w/wo pelvis)* XR/XR hip RT min 2V(w/wo pelvis)*: Arthritis of right hip [facility] Other XR hip RT min 2V(w/wo pelvis)* Copies to: Stacey Vigil MD [facility] Other XR hip RT min 2V(w/wo pelvis)* XR hip RT min 2V(w/wo pelvis)* 01/17/2021 9:28 AM [facility] Other XR hip RT min 2V(w/wo pelvis)* SIGNS AND SYMPTOMS: Right leg weakness with pain in right groin [facility] Other XR hip RT min 2V(w/wo pelvis)* PROTOCOL: Frontal radiograph the pelvis with frontal and frog-leg views of the right hip [facility] Other XR hip RT min 2V(w/wo pelvis)* COMPARISON: None [facility] Other XR hip RT min 2V(w/wo pelvis)* FINDINGS: [facility] Other XR hip RT min 2V(w/wo pelvis)* There is enthesophyte formation of the greater trochanters bilaterally. The joint spaces of the [facility] Other XR hip RT min 2V(w/wo pelvis)* hips are preserved. The bony ring of the pelvis is grossly intact. Vascular calcifications are [facility] Other XR hip RT min 2V(w/wo pelvis)* present in the pelvis. There is no evidence of fracture or dislocation. [facility] Other XR hip RT min 2V(w/wo pelvis)* XR/XR hip RT min 2V(w/wo pelvis)* [facility] Other XR hip RT min 2V(w/wo pelvis)* IMPRESSION: [facility] Other XR hip RT min 2V(w/wo pelvis)* No fracture or dislocation. [facility] Other XR hip RT min 2V(w/wo pelvis)* No significant degenerative change within the joint spaces of the hips. [facility] Other XR hip RT min 2V(w/wo pelvis)* Impression dictated by: Chilango Case M.D.01/17/2021 1:00 PM [facility] Other XR hip RT min 2V(w/wo pelvis)* Dictation Location: [place] [address] [facility] Other XR hip RT min 2V(w/wo pelvis)* Transcribed By: GIOVANNY 01/17/21 1300 [facility] Other XR hip RT min 2V(w/wo pelvis)* Dictated By: Chilango Case II, MD 01/17/21 1259 [facility] Other XR hip RT min 2V(w/wo pelvis)* Signed By: [facility] Other XR hip RT min 2V(w/wo pelvis)* 01/17/21 1300 [facility] Other XR lumbar spine AP/LAT/FLX/E XTon 01-10-2021 XR lumbar spine AP/LAT/FLX/EXT [facility] [employer] Other XR lumbar spine AP/LAT/FLX/EXT [facility] Other XR lumbar spine AP/LAT/FLX/EXT [address] [place] [address] [facility] Other XR lumbar spine AP/LAT/FLX/[place] [address] [facility] Other XR lumbar spine AP/LAT/FLX/EXT XRay Report [facility] Other XR lumbar spine AP/LAT/FLX/EXT Signed [facility] Other XR lumbar spine AP/LAT/FLX/EXT Patient: Parth Powers MR#: [id number] [facility] Other XR lumbar spine AP/LAT/FLX/EXT 82 [facility] Other XR lumbar spine AP/LAT/FLX/EXT : 1955 Acct:[id number] [facility] Other XR lumbar spine AP/LAT/FLX/EXT Age/Sex: 65 / F ADM Date: 01/10/21 [facility] Other XR lumbar spine AP/LAT/FLX/EXT Loc: [facility] Room: Type: REG CLI [facility] Other XR lumbar spine AP/LAT/FLX/EXT Attending Dr: Keith Gaspar DO [facility] Other XR lumbar spine AP/LAT/FLX/EXT Ordering Provider: Keith Gaspar DO [facility] Other XR lumbar spine AP/LAT/FLX/EXT Date of Service: 01/10/21 [facility] Other XR lumbar spine AP/LAT/FLX/EXT XR/XR lumbar spine AP/LAT/FLX/EXT: Pain of right lower [facility] Other XR lumbar spine AP/LAT/FLX/EXT extremity;Arthritis of right hip [facility] Other XR lumbar spine AP/LAT/FLX/EXT Copies to: Keith Gaspar, [facility] Other XR lumbar spine AP/LAT/FLX/EXT AP with lateral neutral, flexion extension views of the lumbar spine [facility] Other XR lumbar spine AP/LAT/FLX/EXT HISTORY: Continued RIGHT hip pain. [facility] Other XR lumbar spine AP/LAT/FLX/EXT COMPARISON:None [facility] Other XR lumbar spine AP/LAT/FLX/EXT Lumbar lordosis is adequate. [facility] Other XR lumbar spine AP/LAT/FLX/EXT No acute lumbar spine fracture is identified. [facility] Other XR lumbar spine AP/LAT/FLX/EXT 5 mm L4-5 degenerative anterolisthesis. Diffuse osteopenia. [facility] Other XR lumbar spine AP/LAT/FLX/EXT Multilevel disc space narrowing most prevalent the L3-4 level. Endplate spurring. Lower lumbar [facility] Other XR lumbar spine AP/LAT/FLX/EXT hypertrophic facet changes. No hypermobility with flexion and extension views. [facility] Other XR lumbar spine AP/LAT/FLX/EXT No paraspinal abnormality seen. [facility] Other XR lumbar spine AP/LAT/FLX/EXT SI joints are maintained. [facility] Other XR lumbar spine AP/LAT/FLX/EXT XR/XR lumbar spine AP/LAT/FLX/EXT [facility] Other XR lumbar spine AP/LAT/FLX/EXT IMPRESSION: No hypermobility. 5 mm L4-5 anterolisthesis. Diffuse osteopenia. Degenerative change. [facility] Other XR lumbar spine AP/LAT/FLX/EXT Impression dictated by: Tonio Ken M.D.01/10/2021 3:59 PM [facility] Other XR lumbar spine AP/LAT/FLX/EXT Dictation Location: [place] [address] [facility] Other XR lumbar spine AP/LAT/FLX/EXT Transcribed By: PWS 01/10/21 [facility] Other XR lumbar spine AP/LAT/FLX/EXT Dictated By: Tonio Ken DO 01/10/21 [facility] Other XR lumbar spine AP/LAT/FLX/EXT Signed By: [facility] Other XR lumbar spine AP/LAT/FLX/EXT 01/10/21 [facility] Other [facility]19 19 [facility] * * *Final Report* * * * * * SEE BOTTOM OF REPORT FOR ADDENDED TEXT * * * DATE OF EXAM: Nov 19 2018 10:45AM [facility] 0621 - [facility] / PROCEDURE REASON: Abnormal findings on diagnostic imaging of breast * * * * Physician Interpretation * * * * RESULT: FINAL REPORT #[id number] - [facility] US BIOPSY BREAST LT #[id number] - [facility] STEREO BX BREAST LT #[id number] - [facility] ULTRASOUND GUIDED BIOPSY LEFT BREAST [...] attempt a stereotactic biopsy (after consultation with [employer] technologists and the patient) to see if [...] Musa performed the entire procedure without an digital marketing assistant. Correlation is made to exams dated: [...] Musa performed the entire procedure without an digital marketing assistant. Correlation is made to exams dated: [...] location, eight cores were obtained using the A V.E.T.S.c.a.r.e. system. The patient received additional local anesthetic [...] momin/clarissa:11/24/2018 16:19:03 Attending Technologist(s): Sima Blackmon, RT(R)(M), [facility] Dialysis Biomed Technician(s): Virginia Rodriguez, [facility]; Ana Clement, RT(R)(M), [facility] Multiple national specialty organizations have released breast cancer screening guidelines for women at average risk for developing breast cancer - guidelines that are based on both evidence and opinion, yet differ on when to start and how often to screen for breast cancer. With representation from Breast Imaging, Internal Medicine, Women's Health, Family Medicine, and Medical/Surgical Oncology, the [facility] has carefully reviewed the data and reached [...] their providers when to stop screening mammograms. Criminal Analyst: Clarissa Transcribe Date/Time: Nov 19 2018 10:41A Dictated by: DIANA MUSA MD This examination was interpreted and the report reviewed and electronically signed by: DIANA MUSA MD on Nov 19 2018 4:47PM EST This document has been addended by: DIANA MUSA MD on Nov 24 2018 4:19PM EST [id number] ACN Normal [facility] STEREO BX BREAST LTon [facility] STEREO BX BREAST LT * * *Final Repor t* * * * * * SEE BOTTOM OF REPORT FOR ADDENDED TEXT * * * DATE OF EXAM: Nov 19 2018 10:41AM [facility] 0630 - [facility] STEREO BX BREAST LT / PROCEDURE REASON: Abnormal findings on diagnostic imaging of breast * * * * Physician Interpretation * * * * RESULT: FINAL REPORT #[id number] - [facility] US BIOPSY BREAST LT #[id number] - [facility] STEREO BX BREAST LT #[id number] - [facility] ULTRASOUND GUIDED BIOPSY LEFT BREAST [...] attempt a stereotactic biopsy (after consultation with [employer] technologists and the patient) to see if [...] Musa performed the entire procedure without an digital marketing assistant. Correlation is made to exams dated: [...] Musa performed the entire procedure without an digital marketing assistant. Correlation is made to exams dated: [...] location, eight cores were obtained using the [employer] system. The patient received additional local anesthetic [...] momin/clarissa:11/24/2018 16:19:03 Attending Technologist(s): Sima Blackmon, RT(R)(M), [facility] Dialysis Biomed Technician(s): Virginia Rodriguez, [facility]; Ana Clement, RT(R)(M), [facility] Multiple national specialty organizations have released breast cancer screening guidelines for women at average risk for developing breast cancer - guidelines that are based on both evidence and opinion, yet differ on when to start and how often to screen for breast cancer. With representation from Breast Imaging, Internal Medicine, Women's Health, Family Medicine, and Medical/Surgical Oncology, the [facility] has carefully reviewed the data and reached [...] their providers when to stop screening mammograms. Criminal Analyst: Clarissa Transcribe Date/Time: Nov 19 2018 10:41A Dictated by: DIANA MUSA MD This examination was interpreted and the report reviewed and electronically signed by: DIANA MUSA MD on Nov 19 2018 4:47PM EST This document has been addended by: DIANA MUSA MD on Nov 24 2018 4:19PM EST [id number] Normal [facility] US BIOPSY BREAST LTon [facility] US BIOPSY BREAST LT * * *Final Repor t* * * * * * SEE BOTTOM OF REPORT FOR ADDENDED TEXT * * * DATE OF EXAM: Nov 19 2018 10:42AM [facility] 0597 - [facility] US BIOPSY BREAST LT / PROCEDURE REASON: Abnormal findings on diagnostic imaging of breast * * * * Physician Interpretation * * * * FINAL REPORT #[id number] - [facility] US BIOPSY BREAST LT #[id number] - [facility] STEREO BX BREAST LT #[id number] - [facility] ULTRASOUND GUIDED BIOPSY LEFT BREAST [...] attempt a stereotactic biopsy (after consultation with [employer] technologists and the patient) to see if [...] Musa performed the entire procedure without an digital marketing assistant. Correlation is made to exams dated: [...] Musa performed the entire procedure without an digital marketing assistant. Correlation is made to exams dated: [...] location, eight cores were obtained using the A V.E.T.S.c.a.r.e.C system. The patient received additional local anesthetic [...] momin/clarissa:11/24/2018 16:19:03 Attending Technologist(s): Sima Blackmon, RT(R)(M), [facility] Dialysis Biomed Technician(s): Virginia Rodriguez, [facility]; Ana Clement RT(R)(M), [facility] Multiple national specialty organizations have released breast cancer screening guidelines for women at average risk for developing breast cancer - guidelines that are based on both evidence and opinion, yet differ on when to start and how often to screen for breast cancer. With representation from Breast Imaging, Internal Medicine, Women's Health, Family Medicine, and Medical/Surgical Oncology, the [facility] has carefully reviewed the data and reached [...] their providers when to stop screening mammograms. Criminal Analyst: Clarissa Transcribe Date/Time: Nov 19 2018 10:41A Dictated by : DIANA MUSA MD This examination was interpreted and the report reviewed and electronically signed by: DIANA MUSA MD on Nov 19 2018 4:47PM EST This document has been addended by: DIANA MUSA MD on Nov 24 2018 4:19PM EST [id number] Normal [facility] SURGICAL PATHOLOGYon 019 SURGICAL PATHOLOGY Specimen originated from [facility] Specimen #: [id number] Submitting Physician: Diana Musa M.D. FINAL DIAGNOSIS 1. Left breast, 1 o'clock, middle depth, stoplight clip, stereotactic needle core biopsy (A) - Organizing fat necrosis. 2. Left breast, 2 o'clock, 8 cm from nipple, coil clip, ultrasound-guided needle core biopsy (B) - Organizing fat necrosis. JJR/thai 11/20/[address] Dori Grossman has seen [...] in two cassettes. Gross examination performed at [address] 11/19/2018 5:19:38 PM B. Received in formalin labeled as Left breast are multiple segments of cylindrical tissue aggregating to 2.5 x 0.8 x 0.2 cm, yellow-brown and of a soft consistency. The specimen is removed from the patient at 10:30 on 11/19/2018. The specimen was placed in formalin at 10:30 on 11/19/2018. Totally submitted in formalin in one cassette. Gross examination performed at [facility], [address] [place] [address] 11/19/2018 9:07:18 PM Date of Report: 11/20/2018 Date of Procedure: 11/19/2018 Date of Receipt: 11/19/2018 Submitted by: Diana Musa M.D. Location: [facility] Diagnostic interpretation performed at [place] [address]. [place] Number: [id number] Normal [facility] Vital Signs Date Time Vital Sign Value Performing Clinician Facility 07-01-2023 14:010400 Body height 162.2 cm Gregg Blum MD Work Phone: [facility] 07-01-2023 14:01040 Body temperature 97.2 [degF] Gregg Blum MD Work Phone: [facility] 07-01-2023 14:01-0400 Body weight 78.4 kg Gregg Blum MD Work Phone: [facility] 07-01-2023 14:01-0400 Diastolic blood pressure 78 mm[Hg] Gregg Blum MD Work Phone: [facility] 07-01-2023 14:01-0400 Heart rate 90 /min Gregg Blum MD Work Phone: [facility] 07-01-2023 14:01-0400 Respiratory rate 16 /min Gregg Blum MD Work Phone: [facility] 07-01-2023 14:01-0400 SaO2% (BldA) [Mass fraction] 96 % Gregg Blum MD Work Phone: [facility] 07-01-2023 14:01-0400 Systolic blood pressure 130 mm[Hg] Gregg Blum MD Work Phone: [facility] 02-20-2023 11:45-0500 Body height 162.56 cm David Bolanos Other [facility] Other 02-20-2023 11:45-0500 Body mass index (BMI) [Ratio] 30.55 kg/m2 David Bolanos Other [facility] Other 02-20-2023 11:45-0500 Body weight 80.74 kg David Bolanos Other [facility] Other 02-20-2023 11:45-0500 Diastolic blood pressure 87 mm[Hg] David Bolanos Other [facility] Other 02-20-2023 11:45-0500 Systolic blood pressure 132 mm[Hg] David Bolanos Other [facility] Other 02-04-2023 13:45-0400 Body height 162.56 cm David Bolanos Other [facility] Other 02-04-2023 13:45-0400 Diastolic blood pressure 92 mm[Hg] David Bolanos Other [facility] Other 02-04-2023 13:45-0400 Systolic blood pressure 135 mm[Hg] David Bolanos Other [facility] Other 01-21-2023 14:30-0400 Body height 162.56 cm David Bolanos Other [facility] Other 01-21-2023 14:30-0400 Body mass index (BMI) [Ratio] 30.62 kg/m2 David Bolanos Other [facility] Other 01-21-2023 14:30-0400 Body weight 80.92 kg David Bolanos Other [facility] Other 01-21-2023 14:30-0400 Diastolic blood pressure 83 mm[Hg] David Bolanos Other [facility] Other 01-21-2023 14:30-0400 Systolic blood pressure 143 mm[Hg] David Bolanos Other [facility] Other 11-19-2022 11:30-0400 Body height 162.56 cm David Bolanos Other [facility] Other 11-19-2022 11:30-0400 Body mass index (BMI) [Ratio] 30.89 kg/m2 David Bolanos Other [facility] Other 11-19-2022 11:30-0400 Body weight 81.65 kg David Bolanos Other [facility] Other 11-19-2022 11:30-0400 Diastolic blood pressure 89 mm[Hg] David Bolanos Other [facility] Other 11-19-2022 11:30-0400 Systolic blood pressure 134 mm[Hg] David Bolanos Other [facility] Other 06-26-2022 10:30-0400 Body height 162.56 cm David Bolanos Other [facility] Other 06-26-2022 10:30-0400 Body mass index (BMI) [Ratio] 30.55 kg/m2 David Bolanos Other [facility] Other 06-26-2022 10:30-0400 Body weight 80.74 kg David Bolanos Other [facility] Other 06-26-2022 10:30-0400 Diastolic blood pressure 84 mm[Hg] David Bolanos Other [facility] Other 06-26-2022 10:30-0400 SaO2% (BldA) [Mass fraction] 97 % David Bolanos Other [facility] Other 06-26-2022 10:30-0400 Systolic blood pressure 126 mm[Hg] David Bolanos Other [facility] Other 2022 10:35-0500 Body height 162.2 cm Gregg Blum MD Work Phone: [facility] 2022 10:35-0500 Body temperature 97.81 [degF] Gregg Blum MD Work Phone: [facility] 2022 10:35-0500 Body weight 80.74 kg Gregg Blum MD Work Phone: [facility] 2022 10:35-0500 Diastolic blood pressure 74 mm[Hg] Gregg Blum MD Work Phone: [facility] 2022 10:35-0500 Heart rate 74 /min Gregg Blum MD Work Phone: [facility] 2022 10:35-0500 Respiratory rate 16 /min Gregg Blum MD Work Phone: [facility] 2022 10:35-0500 SaO2% (BldA) [Mass fraction] 97 % Gregg Blum MD Work Phone: [facility] 2022 10:35-0500 Systolic blood pressure 134 mm[Hg] Gregg Blum MD Work Phone: [facility] 06-06-2022 11:15-0500 Body height 162.56 cm David Bolanos Other [facility] Other 06-06-2022 11:15-0500 Body mass index (BMI) [Ratio] 30.72 kg/m2 David Bolanos Other [facility] Other 06-06-2022 11:15-0500 Body weight 81.19 kg David Bolanos Other [facility] Other 06-06-2022 11:15-0500 Diastolic blood pressure 88 mm[Hg] David Bolanos Other [facility] Other 06-06-2022 11:15-0500 SaO2% (BldA) [Mass fraction] 97 % David Bolanos Other [facility] Other 06-06-2022 11:15-0500 Systolic blood pressure 138 mm[Hg] David Bolanos Other [facility] Other 03-20-2021 15:45-0500 Body height 162.56 cm Stacey Vigil Other [facility] Other 03-20-2021 15:45-0500 Body mass index (BMI) [Ratio] 31.24 kg/m2 Stacey Hernandesemily Other [facility] Other 03-20-2021 15:45-0500 Body weight 82.56 kg Stacey Hernandesemily Other [facility] Other 01-10-2021 15:00-0400 Body height 162.56 cm Keith Chasity Other [facility] Other 01-10-2021 15:00-0400 Body mass index (BMI) [Ratio] 30.89 kg/m2 Keith Gaspar Other [facility] Other 01-10-2021 15:00-0400 Body weight 81.65 kg Keith Abrahamley Other [facility] Other Encounters Encounter Date Encounter Type Care Provider Facility Start: 12-02-2023 End: 12-02-2023 ambulatory Za X Orzech Facility:[facility] Start: 11-03-2023 End: 11-03-2023 ambulatory STEPHEN CHUNG Not Available Start: 10-28-2023 End: 10-28-2023 ambulatory YINKA HARP Not Available Start: 10-21-2023 End: 10-21-2023 ambulatory Sandeep ARCHULETA [facility] Start: 10-14-2023 End: 10-14-2023 ambulatory Sandeep ARCHULETA Facility:[facility] Start: 09-23-2023 End: 09-23-2023 ambulatory Za X Orzech Facility:[facility] Start: 09-01-2023 End: 09-01-2023 ambulatory YINKA HARP Not Available Start: 08-26-2023 End: 08-26-2023 ambulatory Za X Orzech Facility:[facility] Start: 07-02-2023 ambulatory Unique Santos jay [facility] Work Phone: [facility] Start: 07-01-2023 End: 07-01-2023 ambulatory SELF Facility:[facility] Start: 07-01-2023 End: 07-01-2023 ambulatory Gregg Blum MD Work Phone: Hematology/Oncology Comment on above: Malignant neoplasm o f upper-outer quadrant of left breast in female, estrogen receptor negative (HCC) (Primary Dx) Start: 07-01-2023 End: 07-01-2023 Patient encounter procedure Gregg Blum MD Work Phone: [facility] Start: 05-05-2023 End: 05-05-2023 ambulatory Sandeep ARCHULETA Facility:[facility] Start: 04-24-2023 End: 04-24-2023 ambulatory JELENA CALIXTO Not Available Start: 02-25-2023 End: 02-25-2023 ambulatory David Bolanos Other [facility] Other Start: 02-25-2023 Telephone [address] Bol[address] [facility] Start: 02-20-2023 End: 02-20-2023 ambulatory David Bolanos Other [facility] Other Start: 02-20-2023 Office outpatient vi sit [address] [facility] Start: 02-04-2023 (Televisit) Televisit David Persaud [facility] Start: 02-04-2023 End: 02-04-2023 ambulatory David Bolanos Other [facility] Other Start: 02-04-2023 Telephone encounter David Bolanos [facility] Start: 01-21-2023 End: 01-21-2023 ambulatory David Bolanos Other [facility] Other Start: 01-21-2023 Office outpatient vi sit [address] [facility] Start: 11-27-2022 End: 11-27-2022 ambulatory David Bolanos Other [facility] Other Start: 11-27-2022 Telephone encounter David Bolanos [facility] Start: 11-19-2022 End: 11-19-2022 ambulatory David Bolanos Other [facility] Other Start: 11-19-2022 Patient encounter procedure David Bolanos [facility] Start: 08-05-2022 End: 08-05-2022 ambulatory David Bolanos Other [facility] Other Start: 08-05-2022 Telephone encounter David Bolanos [facility] Start: 07-31-[address] DAVID BOLANOS [facility] ity:[facility] Start: 07-02-2022 End: 07-02-2022 ambulatory David Bolanos Other [facility] Other Start: 07-02-2022 [address] Bolanos [facility] Start: 06-26-2022 End: 06-27-[address] DAVID BOLANOS [facility] Other Start: 06-26-2022 Office outpatient vi sit [address] [facility] Start: 2022 End: 2022 ambulatory Gregg Blum MD Work Phone: Hematology/Oncology Comment on above: Malignant neoplasm o f upper-outer quadrant of left breast in female, estrogen receptor negative (HCC) (Primary Dx) Start: 2022 End: 2022 Patient encounter procedure Gregg Blum MD Work Phone: [facility] Start: 06-06-2022 End: 06-06-2022 ambulatory David Bolanos Other [facility] Other Start: 06-06-2022 Office outpatient vi sit [address] [facility] Start: 05-16-2022 End: 05-17-[address] EM SERNA . Facility: Start: 05-01-2022 End: 05-01-2022 ambulatory David Bolanos Facility:[facility] Start: 05-01-2022 End: 05-01-2022 ambulatory MD David Bolanos Work Phone: [facility] Work Phone: Start: 05-01-2022 End: 05-01-2022 Patient encounter procedure MD David Bolanos Work Phone: [facility] Work Phone: Start: 04-25-2022 Encounter for preprocedural laboratory examination DR EM SERNA . [facility] Start: 04-18-2022 End: 05-03-[address] EM [...] 12-19-2021 Adult health examination Radha Bolanos Other [facility] Other Start: 12-19-2021 Gynecological examination normal David Bolanos Other [facility] Other Start: 12-19-2021 Pre-procedure evalua tion check David Bolanos Other [facility] Other Start: 11-15-2021 Encounter for genera l adult medical examination without abnormal findings DR DAVID BOLANOS [facility] Start: 11-12-2021 End: 11-13-[address] DAVID BOLANOS Facility:[facility] Start: 11-12-2021 End: 11-13-2021 Encounter for general adult medical examination without abnormal findings DR DAVID BOLANOS Facility:[facility] Start: 10-09-2021 End: 10-10-[address] VANESSA TORRES . Facility:[facility] Start: 09-03-2021 End: 09-03-[address] DAVID BOLANOS Facility:[facility] Start: 05-10-2021 End: 05-10-2021 ambulatory Stacey Vigil Other [facility] Other Start: 05-10-2021 Office outpatient vi sit 15 minutes Stacey Vigil [facility] Start: 03-22-2021 End: 03-22-2021 ambulatory Stacey Vigil Other [facility] Other Start: 03-22-2021 Telephone encounter Stacey Vigil [facility] Start: 03-21-2021 End: 03-21-2021 ambulatory Stacey Hernandeser Other [facility] Other Start: 03-21-2021 Telephone encounter Stacey Vigil [facility] Start: 03-20-2021 End: 03-20-2021 ambulatory Stacey Hernandeser Other [facility] Other Start: 03-20-2021 Office outpatient vi sit 15 minutes Stacey Vigil [facility] Start: 02-27-2021 (Procedure) Short Stacey Vigil [facility] Start: 02-27-2021 End: 02-27-2021 ambulatory Stacey Vigil Other [facility] Other Start: 01-17-2021 Office outpatient vi sit 25 minutes Stacey Vigil [facility] Start: 01-10-2021 Office outpatient vi sit 15 minutes Keith Gaspar [facility] Procedures Date Procedure Procedure Detail Performing Clinician Start: 05-01-2022 Plain chest X-ray MD Kelle Bolanos Work Phone: Start: 07-20-2019 Screening for malign ant neoplasm of breast David Bolanos Other End: 08-11-2019 Depression screening David Bolanos Other Screening for malign ant neoplasm of breast David Bolanos Other Plan of Treatment Date Care Activity Detail Author Start: 05-10-2024 ambulatory Ambulatory Facility:[facility] Start: 04-14-2023 Advance Directive Discussion Advance Directive Discussion [facility] Start: 04-14-2023 Depression Assessment Depression Assessment [facility] Start: 12-13-2022 Influenza vaccination Influenza Vaccine (#1) [facility] Start: 04-14-2022 ADVANCE DIRECTIVE DISCUSSION ADVANCE DIRECTIVE DISCUSSION [facility] Start: 04-14-2022 DEPRESSION ASSESSMENT DEPRESSION ASSESSMENT [facility] Start: 02-18-2022 DIABETES SCREEN DIABETES SCREEN [facility] Start: 02-18-2022 Diabetes Screening Diabetes Screening [facility] Start: 11-09-2021 Pneumococcal Vaccine: 65+ (2 of 2 - PCV) Pneumococcal Vaccine: 65+ (2 of 2 - PCV) [facility] Start: 11-09-2021 PNEUMOCOCCAL: 65+ (2 - PCV) PNEUMOCOCCAL: 65+ (2 - PCV) [facility] Start: 10-29-2019 Screening for malignant neoplasm of breast Mammogram Screening [facility] Start: 2018 BONE DENSITY BONE DENSITY [facility] Start: 2018 Screening for osteoporosis Bone Density Screening [facility] Start: 2013 RSV Vaccine (1 - 1-dose 60+ series) RSV Vaccine (1 - 1-dose 60+ series) [facility] Start: 1998 COLOGUARD (FIT-DNA) COLOGUARD (FIT-DNA) [facility] Start: 1998 Colonoscopy COLONOSCOPY [facility] Start: 1998 COLORECTAL CANCER SCREENING COLORECTAL CANCER SCREENING [facility] Start: [address] COLONOGRAPHY [facility] Start: 1998 FECAL OCCULT BLOOD FECAL OCCULT BLOOD [facility] Start: 1998 Lipid panel Lipid Screening [facility] Start: 1998 LIPID SCREEN LIPID SCREEN [facility] Start: 1998 Screening for malignant neoplasm of colon [facility] Start: 1998 SIGMOIDOSCOPY SIGMOIDOSCOPY [facility] Start: 1993 Mammography MAMMOGRAM [facility] Start: 1972 Urine microalbumin profile [facility] Start: 06-14-1971 HEPATITIS C SCREENING HEPATITIS C SCREENING [facility] Start: 06-14-1971 Hepatitis C screening Hepatitis C Screening [facility] Immunizations Immunization Date Immunization Notes Care Provider Fa cility 01-21-2023 influenza, high dose seasonal, preservative-free David Bolanos Other [facility] Other 07-30-2022 tetanus and diphther ia toxoids, adsorbed, preservative free, for adult use (5 Lf of tetanus toxoid and 2 Lf of diphtheria toxoid) David Bolanos Other [facility] Other 01-23-2022 COVID-19 Pfizer (Pediatric) David Bolanos Other [facility] Other 01-03-2022 influenza (aIIV4) vaccine, age 65+ yr, quadrivalent, PF (FLUAD QUAD) Gregg Blum MD Work Phone: [facility] 01-03-2022 influenza virus vaccine, split virus (incl. purified surface antigen) David Bolanos Other [facility] Other 01-03-2022 influenza virus vaccine, unspecified formulation Gregg Blum MD Work Phone: [facility] 01-22-2021 COVID-19 Vaccine Pfi zer - Documentation Purposes Only David Bolanos Other [facility] Other 01-10-2021 influenza virus vaccine, split virus (incl. purified surface antigen) David Bolanos Other [facility] Other 11-09-2020 pneumococcal polysaccharide vaccine, 23 valent Gregg Blum MD Work Phone: [facility] 07-19-2020 Kenalog -40 mg Keith Gaspar Other [facility] Other 06-16-2020 COVID-19 Vaccine Pfi zer - Documentation Purposes Only David Luis Miguel Other [facility] Other 05-26-2020 COVID-19 Vaccine Pfi zer - Documentation Purposes Only David Bolanos Other [facility] Other 03-07-2020 zoster vaccine recombinant Gregg Blum MD Work Phone: [facility] 12-21-2019 influenza virus vaccine, split virus (incl. purified surface antigen) David Bolanos Other [facility] Other 11-09-2019 pneumococcal conjuga te vaccine, 13 valent David Bolanos Other [facility] Other 11-09-2019 zoster vaccine recombinant Gregg Blum MD Work Phone: [facility] 02-14-2009 novel [id number], preservative-free, injectable Gregg Blum MD Work Phone: [facility] Payers Date Payer Category Payer Self-pay [id number] 2018 Medicare MEDICARE MEDICAR E A AND B [id number] 2018-Present [phone] [place] [address] Medicare [id number] 2018 Unknown TRANS[employer]ERICA TRA NSAMERICA SUPPLEMENT [id number] 2018-Present [phone] [address] [place] [address] Indemnity [id number] 1959 Medicare [id number] 1959 Unknown [id number] 1953 Unknown [id number] 2.16.840.1.064601.3.579.2.59 3 1953 Unknown [id number] 2.16.840.1.313054.3.579.2.59 3 1953 Unknown [id number] 2.16.840.1.409957.3.579.2.59 3 1953 Unknown [id number] 2.16.840.1.451654.3.579.2.59 3 1953 Unknown [id number] 2.16.840.1.177725.3.579.2.59 3 1953 Unknown [id number] 2.16.840.1.986127.3.579.2.59 3 1953 Unknown [id number] 2.16.840.1.764002.3.579.2.59 3 1953 Unknown [id number] 2.16.840.1.825303.3.579.2.59 3 1953 Unknown [id number] 2.16.840.1.297415.3.579.2.59 3 1953 Unknown [id number] 2.16.840.1.990566.3.579.2.59 3 1953 Unknown [id number] 2.16.840.1.230139.3.579.2.59 3 1953 Unknown [id number] 2.16.840.1.813191.3.579.2.59 3 1953 Unknown [id number] 2.16.840.1.627513.3.579.2.59 3 - Unknown [id number] 2.16.840.1.519412.3.579.2.59 3 1953 Unknown [id number] 2.16.840.1.695400.3.579.2.59 3 - Unknown [id number] 2.16.840.1.248491.3.579.2.59 3 1953 Unknown [id number] 2.16.840.1.326231.3.579.2.12 59 1953 Unknown [id number] 2.16.840.1.353407.3.579.2.12 59 1953 Unknown [id number] 2.16.840.1.056290.3.579.2.12 59 1953 Unknown [id number] 2.16.840.1.396903.3.579.2.12 59 1953 Unknown [id number] 2.16.840.1.935866.3.579.2.72 7 1953 Unknown [id number] 2.16.840.1.105637.3.579.2.72 7 1953 Unknown [id number] 2.16.840.1.911989.3.579.2.72 7 1953 Unknown [id number] 2.16.840.1.064397.3.579.2.72 7 1953 Unknown [id number] 2.16.840.1.032061.3.579.2.72 7 1953 Unknown [id number] 2.16.840.1.969264.3.579.2.72 7 1953 Unknown [id number] 2.16.840.1.739965.3.579.2.72 7 Unknown [id number] 2.16.840.1.950546.19 Unknown [id number] 2.16.840.1.916162.3.579.2.53 1 Social History Date Type Detail Facility Start: 07-01-2023 [facility] At [facility] Start: 1955 Sex Assigned At Female [facility] Start: 03-19-2012 Tobacco smoking stat us NHIS Never smoked tobacco [facility] Start: 03-19-2012 Tobacco use and exposure Smokeless tobacco non-user [facility] Start: 06-14-2021 End: 07-01-2023 Alcohol intake Ex-drinker (finding) [facility] Start: 1955 Sex Assigned At Not on file C [facility] Start: 07-01-2023 History of Social function [facility] Adult Depression Screening Assessment [address] [facility] Clinical Notes 01-10-2021 to 12-02-2023 Gergg Blum MD - 07/01/2023 6:39 AM EDT Note Date & Type Note Facility 12-02-2023 Note Patient Education Obstetrics and Gynecology Overactive Bladder, Adult Overactive bladder is a condition in which a person has a sudden and frequent need to urinate. A person might also leak urine if he or she cannot get to the bathroom fast enough (urinary incontinence). Sometimes, symptoms can interfere with work or social activities. What are the causes? Overactive bladder is associated with poor nerve signals between your bladder and your brain. Your bladder may get the signal to empty before it is full. You may also have very sensitive muscles that make your bladder squeeze too soon. This condition may also be caused by other factors, such as: ? Medical conditions: ? Urinary tract infection. ? Infection of nearby tissues. ? Prostate enlargement. ? Bladder stones, inflammation, or tumors. ? Diabetes. ? Muscle or nerve weakness, especially from these conditions: ? A spinal cord injury. ? Stroke. ? Multiple sclerosis. ? Parkinson's disease. ? Other causes: ? Surgery on the uterus or urethra. ? Drinking too much caffeine or alcohol. ? Certain medicines, especially those that eliminate extra fluid in the body (diuretics). ? Constipation. What increases the risk? You may be at greater risk for overactive bladder if you: ? Are an older adult. ? Smoke. ? Are going through menopause. ? Have prostate problems. ? Have a neurological disease, such as stroke, dementia, Parkinson's disease, or multiple sclerosis (MS). ? Eat or drink alcohol, spicy food, caffeine, and other things that irritate the bladder. ? Are overweight or obese. What are the signs or symptoms? Symptoms of this condition include a sudden, strong urge to urinate. Other symptoms include: ? Leaking urine. ? Urinating 8 or more times a day. ? Waking up to urinate 2 or more times overnight. How is this diagnosed? This condition may be diagnosed based on: ? Your symptoms and medical history. ? A physical exam. ? Blood or urine tests to check for possible causes, such as infection. You may also need to see a health care provider who specializes in urinary tract problems. This is called a urologist. How is this treated? Treatment for overactive bladder depends on the cause of your condition and whether it is mild or severe. Treatment may include: ? Bladder training, such as: ? Learning to control the urge to urinate by following a schedule to urinate at regular intervals. ? Doing Kegel exercises to strengthen the pelvic floor muscles that support your bladder. ? Special devices, such as: ? Biofeedback. This uses sensors to help you become aware of your body's signals. ? Electrical stimulation. This uses electrodes placed inside the body (implanted) or outside the body. These electrodes send gentle pulses of electricity to strengthen the nerves or muscles that control the bladder. ? Women may use a plastic device, called a pessary, that fits into the vagina and supports the bladder. ? Medicines, such as: ? Antibiotics to treat bladder infection. ? Antispasmodics to stop the bladder from releasing urine at the wrong time. ? Tricyclic antidepressants to relax bladder muscles. ? Injections of botulinum toxin type A directly into the bladder tissue to relax bladder muscles. ? Surgery, such as: ? A device may be implanted to help manage the nerve signals that control urination. ? An electrode may be implanted to stimulate electrical signals in the bladder. ? A procedure may be done to change the shape of the bladder. This is done only in very severe cases. Follow these instructions at home: Eating and drinking ? Make diet or lifestyle changes recommended by your health care provider. These may include: ? Drinking fluids throughout the day and not only with meals. ? Cutting down on caffeine or alcohol. ? Eating a healthy and balanced diet to prevent constipation. This may include: ? Choosing foods that are high in fiber, such as beans, whole grains, and fresh fruits and vegetables. ? Limiting foods that are high in fat and processed sugars, such as fried and sweet foods. Lifestyle ? Lose weight if needed. ? Do not use any products that contain nicotine or tobacco. These include cigarettes, chewing tobacco, and vaping devices, such as e-cigarettes. If you need help quitting, ask your health care provider. General instructions ? Take [id number] and prescription medicines only as told by your health care provider. ? If you were prescribed an antibiotic medicine, take it as told by your health care provider. Do not stop taking the antibiotic even if you start to feel better. ? Use any implants or pessary as told by your health care provider. ? If needed, wear pads to absorb urine leakage. ? Keep a log to track how much and when you drink, and when you need to urinate. This will help your health care (more content not included)... [facility] 10-21-2023 Note Patient Education Custom Cystoscopy with Botox injection ? Voiding after the procedure: there may be some pain, burning, urgency, frequency and blood tinged urine following the procedure. These symptoms usually resolve within 2-5 days. Drink the amount of fluid it takes to keep the urine pink to yellow or clear in color. Drinking enough water and fluids will help to ease any discomfort after your procedure. ? It may take a few days to a week to notice a gradual improvement in the overactive bladder symptoms. ? If you are having problems that seem out of the ordinary, please call. ? If unable to contact your physician and you feel it is an emergency, go to the nearest emergency room or call 911 ? Do not lift more than fifteen pounds for 1-2 days. If you see a lot of blood, you probably did too much. ? Diet ? you may resume your normal diet. ? Pain control ? You may take extra strength Tylenol or Motrin for discomfort. ? Call if you have a fever over 100 degrees. [facility] 09-23-2023 Note Chief Complaint Repeat Botox Evaluation HPI Staff Last seen in our office 05/05/23 by PRW Dx: urge incontinence S/P cysto with Botox 05/28/22 Here today for evaluation for possible repeat Botox. Increased urinary sx in last 6m. Increased loss of bladder control. (when getting into bed) Does not wear protection. Increased urgency. Denies frequency. Denies pain/burning and visible blood in urine. PVR 62ml History of Present Illness I have reviewed and verified the staff HPI to be accurate for this encounter. Portions of this record may have been created with voice recognition artificial intelligence software, specifically [employer], [employer] and or [employer]. Substitutions may have occurred due to the inherent limitations of voice recognition and artificial intelligence software. Review of Systems PHQ Score Initial Depression Screen Score: 0 SCORE Physical Exam Vitals & Measurements HR: 69(Peripheral) RR: 16 BP: 140/85 HT: 65 in HT: 165 cm WT: 82 kg WT: 180.4 lb BMI: 30.12 Assessment/Plan 1. Urge incontinence (N39.41: Urge incontinence) S/p Botox 100u 11/19/16, 02/17/18, 10/26/19, 02/06/21, and 05/28/22 [1] Patient is noticing increased frequency and urgency over the last 6 months, particularly as soon as she lays down in bed and she is having increased leaking as result of her urgency. She is not wearing a pad, takes a tissue with her the bed. She feels that it is time for repeat Botox. PVR today 62 ml UA today without signs of blood or infection. Denies any urinary infection or episode of hematuria since prior office visit. Will schedule Botox. The procedural risks, benefits, details, and treatment [...] causing neurological problems, which is quite rare. Will order Local anesthesia. -Timed voids, voiding maneuvers -Schedule Botox with PRW Ordered: [id number] Measure Post Void residual urine and/or bladder capacity by US- non-imaging 2. Stress incontinence (N39.3: Stress incontinence (female) (male)) With sneezing, coughing, sometimes activity. Not particularly bothersome to patient at this time. Orders: Urnls Dip Stick Auto w/o Microscopy POC [id number] Follow-up With When Contact Information SERGIO DYKES, Sandeep Simmons, [address] [place] [address]- Additional Instructions: Schedule Botox Patient Education Overactive Bladder, Adult Urinary Incontinence Problem List/Past Medical History Ongoing Anticoagulated Aspirin long-term use Eczema Esophageal reflux History of breast cancer Hyperlipidemia Hypertension FPC current use of anticoagulant therapy Mixed incontinence Neuropathy Urge incontinence Urinary urgency Historical No qualifying data Procedure/Surgical History Injection of therapeutic substance into bladder wall (05/28/2022), Injection of therapeutic substance into bladder wall (02/06/2021), Cystoscopy (10/26/2019), Bilateral mastectomy (02/2019), Injection of therapeutic substance into bladder wall (02/17/2018), Injection of therapeutic substance into bladder wall (11/19/2016), [place] node biopsy (03/2012), Lumpectomy (02/2012), External beam radiotherapy (2011), Cystoscopy (04/11/2003), Urodynamics (04/11/2003), D&C - Dilatation and curettage, Excision of calcaneal spur. Medications alendronate 35 mg Tab Alpha Lipoic, Oral biotin, Oral, Daily calcium (as carbonate) 600 mg oral tablet DONEPEZIL HYDROCHLORIDE ferrous sulfate, Oral Fish Oil fosamax, 35 mg, Oral, Friday glucosamine hydrochloride 1500 mg oral tablet, 1500 mg= 1 tab(s), Oral, Daily losartan 25 mg Tab magnesium sulfate, IV, Once melatonin 5 mg oral capsule, Oral, Once a day (at bedtime) Multi Vitamin+ niacin, Oral pravastatin tiZANidine 4 mg Tab Vitamin B Complex oral capsule, Oral, Daily Vitamin C, Oral, Daily vitamin E, Oral Allergies Dilaudid (Nausea and vomiting) HYDROmorphone (Unknown) Latex (Rash) Oats (Nausea and vomiting) Tape (Rash) Vicodin (Nausea and vomiting) Social History Alcohol - Denies Alcohol Use, 06/28/2019 Tobacco Never (less than 100 in lifetime) Tobacco Use:. Never Smokeless Tobacco Use:. Household tobacco concerns: No. Yes, 09/23/2023 Family History Cancer: Aunt. Leukemia: Sister. Primary malignant neoplasm of lung: Father. Immunizations Vaccine Date Status Comments SARS-CoV-2 (COVID-19) [id number] 01/23/2022 Recorded influenza virus vaccine, inactivated 01/03/2022 Recorded SARS-CoV-2 (COVID-19) mRNA BNT-162b2 vax 01/22/2021 R (more content not included)... [facility] Comment on above: Result Comment: Elec tronically Signed By: STACIE Espinoza APRN, [place] X\.jose francisco\Date and Time Signed: 09/23/23 13:18 EDT 07-01-2023 Note HNO ID: [id number] Author: GREGG BLUM MD Service: ? Author [...] ORAL) Take by mouth once daily. Fish Oil-[place]-3 Fatty Acids (FISH OIL) 340-1,000 mg cap [...] gallop, or rubs. (more content not included)... [facility] 07-01-2023 History of Present illness Narrative PATIENT [...] ORAL) Take by mouth once daily. Fish Oil-[place]-3 Fatty Acids (FISH OIL) 340-1,000 mg cap [...] receptor negative Stage IA (T1mic, N0, M0) ER/NJ negative, HER-2 negative left-sided breast cancer diagnosed [...] David Bolanos MD documented in this encounter [facility] 02-20-2023 Evaluation note Encounter Date Diagnosis Assessment Notes Feb, Wound of foot (ICD-10 - S91.309A) Referral to [facility] written. 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 [facility] Other 10-24-2023 Evaluation note* Encounter Date Diagnosis Assessment Notes Treatment Notes Treatment Clinical Notes Jan, COVID-19 (ICD-10 - U07.1) Hold atorvastatin while on paxlovid. Continue rest and supportive care. Denies dyspnea. Discussed further treatment options. Reviewed + test at [facility] lab today [facility] Other 10-10-2023 Evaluation note* Encounter Date Diagnosis [...] is readily compliant w machine and treatment. [facility] Other 08-08-2023 Evaluation note* Encounter Date Diagnosis [...] Requests refill. condition is chronic and stable. [facility] Other 04-24-2023 Evaluation note* Encounter Date Diagnosis Assessment Notes Treatment Notes Treatment Clinical Notes Jul, Strain of left trapezius muscle, initial encounter (ICD-10 - S46.812A) [facility] Other 03-15-2023 Evaluation note* Encounter Date Diagnosis Assessment Notes Treatment Notes Treatment Clinical Notes Jun, Other chronic pain (ICD-10 - G89.29) Jun, Pain in left shoulder (ICD-10 - M25.512) Pt declines PT at this time. Will check xray and followup w Dr. Quinn. Had two massages - no improvement in prominent muscle spasm in L trap area. [facility] Other 03-02-2023 History of Present illness Narrative* [...] receptor negative Stage IA (T1mic, N0, M0) ER/NJ negative, HER-2 negative left-sided breast cancer diagnosed [...] bone scan. Gregg Blum MD CC: David Bolanso MD [facility]* Encounter Date Diagnosis Assessment Notes Treatment Notes Treatment Clinical Notes May, Strain of left trapezius muscle, initial encounter (ICD-10 - S46.812A) Declines cardiac concerns or PT referral as she is traveling soon. Will consider a massage. [facility] Other 02-02-2023 NoteCONSULTATION CONSULTATION DATE: 05/16/2022 HISTORY [...] She will call the office for refills.[facility] [id number] NoteCONSULTATION CONSULTATION DATE: 03/05/2022 CHIEF COMPLAINT: Low [...] like to proceed. CC: David Bolanos M.D.[facility] [id number] NotePAIN MANAGEMENT CONSULTATION CONSULTATION DATE: 02/12/2022 CHIEF [...] answered. The patient would like to proceed.[facility] [id number] Note PAIN MANAGEMENT CONSULTATION CONSULTATION DATE: 01/15/2022 [...] the thoracic spine. CC: David Bolanos M.D.[facility] [id number] Evaluation note* Encounter Date Diagnosis Assessment Notes [...] Above note written by Chadd Irizarry MA, Professional Housing Consultant. Edited and approved by Dr. Stacey Vigil MD. [facility] Other 12-08-2021 Evaluation note* Encounter Date Diagnosis Assessment Notes Treatment Notes Treatment Clinical Notes Mar, Trochanteric bursitis of right hip (ICD-10 - M70.61) [facility] Other 12-07-2021 Evaluation note* Encounter Date Diagnosis [...] note writ ten by Chadd Irizarry CMA, Professional Housing Consultant. Edited and approved by Dr. Stacey Vigil MD. [facility] Other 10-06-2021 Evaluation note* Encounter Date Diagnosis [...] note writ ten by Macy Toth CMA, Professional Housing Consultant. Edited and approved by Dr. Stacey Vigil [...] negative findings were considered in medical decision-making. [facility] Other 09-29-2021 Evaluation note* Encounter Date Diagnosis [...] schedule an appt with Dr Joseph Vigil (house painter) for evaluation and hip joint injection. Dec, Pain of right lower extremity (ICD-10 - M79.604) [facility] Other Evaluation noteNo InformationNort [employer] Other Evaluation noteNo assessment information available [facility] Work Phone: Evaluation note* Diagnosis Malignant neoplasm of upper-outer quadrant of left breast in female, estrogen receptor negative (HCC)- Primary documented in this encounter [facility] CenterEvaludelaware hospital for the [facility] note* Diagnosis Malignant neoplasm of upper-outer quadrant of left breast in female, estrogen receptor negative (HCC)- Primary documented in this encounter [facility] general Narrative - Reported* Type Description Date Medical History hypertension Medical History high cholesterol Medical History neuropathy bilateral feet Medical History osteoarthritis Medical History breast cancer Medical History osteopenia Surgical History breast cancer Surgical History lumpectomy, left breast Surgical History lumpectomy, right breast Surgical History bilateral mastectomy Surgical History toe surgery Hospitalization History see above [facility] Other History general Narrative - [facility] Other [facility] general Narrative - Reported* Type Description Date [...] lid lift 05/23/2022 Hospitalization History see above [facility] Other Hisw[facility] general Narrative - Reported* Type Description Date [...] lid lift 05/23/2022 Hospitalization History see above [facility] Other Summary Purpose Family History No Family History Records FoundNo Family History Records FoundNo Family History Records FoundNo Family History Records FoundNo Family History Records FoundNo Family History Records Found Advance Directives No Advanced Directives Records Found Advance Directive Response Recorded Date/ Time Advance Directives No December 10:06am Documents on File Type Date Recorded Patient Box Inspector Expl anation Advance Directive(s) 05/26/2012 10:48 AM Chief Complaint and Reason for Visit Chief Complaint H02.403 Reason for Referral Reason [place] [facility], [facility] concerns - MRI pending Diagnosis 1 Memory deficit (R41. 3) Referral Organization [facility] Referring Provider First Name David Referring Provider Last Name Luis Miguel Referring Provider Specialty [facility] Referred Organization [facility] Referred Provider Quentin Eric Referred Address [address] [place] [phone] Referred Provider Specialty Neurology Referral Priority Routine Reason *FU 07/10 Marv of fice - Xray today. OV from today and May. Thank you. Diagnosis 1 Pain in left shoulde r (M25.512) Referral Organization [facility] Referring Provider First Name David Referring Provider Last Name Luis Miguel Referring Provider Specialty [facility] Referred Organization [facility] Referred Provider Adelso Quinn Referred Address ,[place], [place],[address] Referred Provider Specialty Orthopaedic Surgery Referral Priority Routine General Notes Ginger Pruitt 01:20:29 PM >received today, no XR from today in chart, notes locked, other attachments made, referral faxxed Ginger Pruitt 07/03/2022 10:55:25 AM >FAXED FIRST ATTEMPT LETTER Additional Source Comments INFORMATION SOURCE (unrecogn ized section and content) DATE CREATED AUTHOR 11/24/2018 [facility] DATE CREATED AUTHOR AUTHOR'S ORGANIZ ATION 05/18/2022 [facility] DATE CREATED AUTHOR AUTHOR'S ORGANIZ ATION 08/01/2022 [facility] DATE CREATED AUTHOR AUTHOR'S ORGANIZ ATION 07/02/2023 [facility] DATE CREATED AUTHOR AUTHOR'S ORGANIZ ATION 11/05/2023 [facility] EPIC DATE CREATED AUTHOR AUTHOR'S ORGANIZ ATION 12/04/2023 [facility] REASON FOR VISIT (unrecogniz ed section [...] David Bolanos MD Primary Care Provider Active Loom Tuner Relationship Specialty Start Date End Date David Bolanos MD [address] [place] [address] PCP - General Family Medicine 03/19/12 Loom Tuner Relationship Specialty Start Date End Date David Bolanos MD [address] [place] [address] PCP - General Family Medicine 03/19/12 Loom Tuner Relationship Specialty Start Date End Date David Bolanos MD [address] [place] [address] PCP - General Family Medicine [...] or prosecute any alcohol or drug abuse patient.[facility] CenterIn the event this information is protected by the Federal Confidentiality of Alcohol and Drug Abuse Patient Records regulations: The Federal rules restrict any use of the information to criminally investigate or prosecute any alcohol or drug abuse patient.[facility] CenterIn the event this information is protected by the Federal Confidentiality of Alcohol and Drug Abuse Patient Records regulations: The Federal rules restrict any use of the information to criminally investigate or prosecute any alcohol or drug abuse patient.[facility] FOR RECORDS PERTAINING TO PATIENTS WHO ARE [...] BE BASED ON THE PRIMARY CLINICAL RECORDS. [facility]. provides no warranty or guarantee of the accuracy or completeness of information in this document.
[2023-12-12 10:17] LABS: Alanine Aminotransferase 37 U/L (14-59); Albumin Globulin Ratio 1.1; Albumin Level 3.6 g/dL (3.4-5.0); Alkaline Phosphatase 38 U/L (46-116); Anion Gap 13.5; Aspartate Amino Transferase 25 U/L (15-37); BUN Creatinine Ratio 23.9; Bilirubin Total 0.4 mg/dL (0.2-1.0); Calcium 9.3 mg/dL (8.5-10.1); Carbon Dioxide 27.5 mmol/L (21.0-32.0); Chloride 102 mmol/L (98-107); Chol HDL Ratio 3.5; Cholesterol 250 mg/dL (<=200); Estimated GFR (African America >60 (>=60); Estimated GFR (Non-African Ame >60 (>=60); Globulin 3.3 g/dL; Glucose 113 mg/dL (74-106); HDL Cholesterol 71 mg/dL (40-60); Sodium 139 mmol/L (136-145); Thyroid Stimulating Hormone 1.234 uIU/mL (0.358-3.740); Total Protein 6.9 g/dL (6.4-8.2); Triglycerides 213 mg/dL (<=150); VLDL CHOLESTEROL 42.6 mg/dL
== END 2023-12-12 08:07 | disposition home or self-care (01) ==
LOC: LAB 08:08
PROVIDERS: PCP Family Medicine; Visit Provider Family Medicine
DX: E78.5 Hyperlipidemia, unspecified (principal); I10 Essential (primary) hypertension
CPT/HCPCS: 36415; 80053; 80061; 84443; 85025

== ENCOUNTER 2024-01-21 20:53 | Outpatient (OUT) | payer MEDICARE, OTHER, SELFPAY ==
--- OUTSIDE RECORDS SUMMARY | 2024-01-21 20:56 | XMS_ITS | CCD ---
Author Organization [facility] Care Team Providers Care Processor Solid Propellant Name Role Phone Keith Gaspar Unavailable Stacey Vigil Unavailable MD David Bolanos Primary Care Provider MD Regina Biggs Attending Provider David Bolanos Primary Care Unavailable Regina Biggs Attending Unavailable Regina Biggs Admitting Unavailable David Bolanos MD Primary Care Provider [phone] David Bolanos Unavailable SAV ., DR EM [...] Unavailable BOLANOS, DR DAVID Bravo Admitting Unavailable WEST, DR GILLES Campo Consulting Unavailable [...] Attending Unavailabl e SERNA ., DR EM Heranndez Attending Unavailable BOLANOS, DR DAVID Bravo Primary Care Unavailable SERNA ., DR EM Hernandez Admitting Unavailable SERNA ., DR EM Hernandez Attending Unavailable SERNA ., DR EM Hernandez Admitting Unavailable BOLANOS, DR DAVID Bravo Primary Care Unavailable SERNA ., DR EM Hernandez Consulting Unavailable BOLANOS, DAVID Bravo Primary Care Unavailable SELF Referring Unavailable GREGG BLUM Attending Unavailable BOLANOS, DAVID Bravo Primary Care Unavailable HILL, Sandeep R Attending Unavailable HILL, Sandeep R Attending Unavailable Orzech, Za X Attending Unavailable Orzech, Za X Attending Unavailable HILL, Sandeep R Attending Unavailable Orzech, Za X Attending Unavailable HILL, Sandeep R Attending Unavailable HILL, Sandeep R Referring Unavailable HILL, Sandeep R Admitting Unavailable JELENA CALIXTO Attending Unavailable LOYD, YINKA Attending Unavailable LOYD, YINKA Attending Unavailable CHUNG, STEPHEN Attending Unavailable CHUNG, STEPHEN Attending Unavailable Allergies Allergy Classification Reported Allergen(s) Allergy Type Date of Onset Reaction(s) Facility (15 sources) Acetaminophen / HYDROcodone; Translations: [Vicodin] Drug Allergy 03-27-20 15 Unknown [facility] Repository (19 sources) HYDROmorphone; Translations: [HYDROmorphone] Drug Allergy 03-27-20 15 Unknown [facility] Repository (13 sources) Morphine Drug Allergy Unknown [facility] Other (4 sources) Acetaminophen / HYDROcodone; Translations: [HYDROCODONE-ACET AMINOPHEN] Drug Allergy 12-23-19 15 [facility] (4 sources) Adhesive Tape; Translations: [ADHESIVE TAPE (ROSINS)] Allergy to substance 03-13-20 12 [facility] (4 sources) HYDROmorphone; Translations: [HYDROMORPHONE (BULK)] Drug Allergy 12-23-19 15 [facility] (4 sources) Latex; Translations: [LATEX, NATURAL RUBBER] Drug Allergy 08-15-19 17 [facility] (4 sources) Oats, Oat Gum; Translations: [OATS, OAT GUM] Food Allergy 05-21-19 17 [facility] (12 sources) Adhesive Tape; Translations: [Tape] Drug allergy Unknown [facility] Repository (12 sources) Latex; Translations: [Latex] Drug allergy Unknown [facility] Repository (2 sources) HYDROmorphone; Translations: [Dilaudid] Drug Allergy 03-27-20 15 [facility] Repository (1 source) Latex Drug allergy (disorder) 03-27-20 15 [facility] Repository (1 source) Morphine Drug Allergy [facility] Repository (2 sources) Nimorazole; Translations: [Oats] Drug Allergy 04-14-19 17 [facility] Repository (1 source) Misc-Other; Translations: [Misc-Other] Propensity to adverse reactions (disorder) 03-27-20 15 [facility] Repository (7 sources) Vicodin *ANALGESICS - OPIOID* Propensity to adverse reactions 04-14-19 19 Unknown [facility] Other (7 sources) Morphine Sulfate (Concentrate) *ANALGESICS - OPIOI Propensity to adverse reactions Unknown [facility] Other (2 sources) Allergies Reconciled Propensity to adverse reactions Unknown [facility] Other (2 sources) patient allergy list reviewed by nurse or physicia Propensity to adverse reactions 07-15-19 Comment:Done [facility] Other Medications Current Medications Medication Drug Class(es) Dates Sig (Normalized) Sig (Original) calcium carbonate 1500 mg oral tablet (18 sources) take 1 tablet by [facility] every twelve hours Calcium 600 MG 1 [...] (11 sources) take 1 capsule by mo [facility] once daily Fish Oil 1000 MG [...] for 90 days May, Active Vitamin D3 4304539 UNIT/GM (18 sources) Vitamin D3 56182 00 UNIT/GM as directed Active {20 (nirmatrelvir [...] on above: Take 2 tablets by mo [facility] as needed. alendronic acid 35 mg [...] a week. 3 days a week Fish Oil-Carson-3 Fatty Acids (FISH OIL) 340-1,000 mg cap (3 sources) take 1 capsule by mouth once daily Fish Oil-Carson-3 Fatty Acids (FISH OIL) 340-1,000 mg cap Take 1 capsule by mouth once daily. 0 Active Comment on above: Take 1 capsule by mo [facility] once daily. fluocinonide 0.5 mg/ml topical [...] on above: Take 1,500 mg by risa th once daily. losartan potassium 25 mg oral [...] th daily at bedtime. (9 sources) Not-Norman avelina Probiotic (9 sources) Probiotic Not-Fabian moses rOPINIRole [...] Comment on above: Take 400 Units by mo ut once daily. Vitamin E 1000 IU (16 sources) Vitamin E 1000 I U Not-Taking Vitamin E 1000 I U Active Problems Active Problems Problem Classification Problem Date Documented Date Episodic/Chronic Acquired foot deformities (4 sources) Acquired hallux rigidus; Translations: [Hallux rigidus, right foot] Chronic Administrative/social admission (2 sources) Informing health patient care assistant of test result; Translations: [Person consulting for [...] botox Follow-up With When Contact Information Alexis GALVINN, PHOTOGRAPHIC DEVELOPER AND PRINTER-C, Za X, FAM, URL Additional Instructions: PRN [...] reflux History of breast cancer Hyperlipidemia Hypertension intermediate card tender current use of anticoagulant therapy Mixed incontinence Neuropathy Stress incontinence Urge incontinence Urinary urgency Historical No qualifying data Procedure/Surgical History Injection of therapeutic substance into bladder wall (05/28/2022), Injection of therapeutic substance into bladder wall (02/06/2021), Cystoscopy (10/26/2019), Bilateral mastectomy (02/2019), Injection of therapeutic substance into bladder wall (02/17/2018), Injection of therapeutic substance into bladder wall (11/19/2016), [place] node biopsy (03/2012), Lumpectomy (02/2012), External beam [...] Immunizations Vaccine Date Status Comments SARS-CoV-2 (COVID-19) [id number] 01/23/2022 Recorded influenza virus vaccine, inactivated 01/03/2022 Recorded SARS-CoV-2 (COVID-19) mRNA BNT-162b2 vax 01/22/2021 Recorded 2022-05-20: [id number] pneumococcal 23-valent vaccine 11/09/2020 Recorded SARS-CoV-2 (COVID-19) mRNA BNT-162b2 vax 06/16/2020 Recorded CLARITA (more content not included)... Normal [facility] Comment on above: Result Comment: Elec tronically Signed By: STACIE Espinoza APRN, [place] X\.br\Date and Time Signed: 12/02/23 15:58 EDT\.br\Electronically Co-Signed By: Micheal Garcia\.br\Date and Time Co-Signed: 12/02/23 15:24 EDT Main OR Intraoperative Recor don 10-21-2023 Main OR Intraoperative Record Main OR Intraoperative Record IntraOp Document Type FTURO Summary Primary Physician: Sandeep HILL MD Finalized Date/Time: 10/21/23 10:38:02 Pt. Name: PARTH POWERS/Sex: 1955 Female Med Rec #: [id number] Physician: Sandeep HILL MD Financial #: [id number] Pt. Type: O Room/Bed: / Admit/Disch: 10/21/23 07:47:17 - Institution: Case Times FTURO Entry 1 Patient Times In Room 10/21/23 10:17:00 Out Room 10/21/23 10:35:00 Procedure Times Start 10/21/23 10:24:00 Stop 10/21/23 10:29:00 Anesthesia Times Last Modified By: Ok LIVINGSTON, Dalia Geller 10/21/23 10:30:02 General Comments: BOTOX 100 UNITS LOT #: [id number], EXP DATE: 07/2025 -Margarito RALPH RN Case Attendance FTURO Entry 1 Entry 2 Entry 3 Case Attendee SERGIO DYKES, Sandeep Ralph RN, Sussy Olivares Role Performed Surgeon - Primary Professional Golf Tournament Player - Primary Scrub - Primary Time In [...] Outcomes Met? Yes Last Modified By: Ok ILVINGSTON, Dalia Geller 10/21/23 10:21:50 Post-Care Text: The [...] Verified Availability Equipment, Medication Time Out Sandeep HILL MD, Verified (If Participants Ok LIVINGSTON, Dalia Applicable) Marlin Geller, Sussy [place] Time Out Complete 10/21/23 10:22:00 Allergies Reviewed? [...] By: Dalia Ralph RN 10/21/23 10:38 Normal [facility] Main OR Preoperative Recordo n 10-21-2023 Main OR Preoperative Record Main OR Preoperative Record Holding Area Document Type FTURO Summary Primary Physician: Sandeep HILL MD Finalized Date/Time: 10/21/23 10:03:41 Pt. Name: PRIYAPARTH/Sex: 1955 Female Med Rec #: [id number] Physician: Sandeep HILL MD Financial #: [id number] Pt. Type: O Room/Bed: / Admit/Disch: 10/21/23 [...] HADLEY Shi RN, Ruthann 10/21/23 10:03 Normal [facility] Operative Reporton Operative Report Operative Report Patient: PARTH POWERS Age: 68 years Sex: Female : 1955 Associated Diagnoses: None Author: Sandeep HILL MD Procedure Operative Information Details: Date/ Time: [...] with antibiotic coverage, Follow up arranged. Normal [facility] Comment on above: Result Comment: Elec tronically Signed By: SERGIO DYKES, Sandeep Christopher.jose francisco\Date and Time Signed: 10/21/23 10:34 EDT [place] 09-25-2023 Screens [id number] Normal [facility] Ambulatory Visit Summaryon 0 09-23-2023 Ambulatory Visit Summary PRIYAJUDITH HERNANDEZKEVON Garcia :1955 Visit Date:09/23/2023 Ambulatory Visit Instructions Your Diagnosis Urge incontinence Stress incontinence Your Care Team Attending Physician - Alexis BANDA, STACIE, Za Larson Primary Care Physician - DAVID [...] of therapeutic substance into bladder wall (11/19/2016), [place] node biopsy (03/2012), Lumpectomy (02/2012), External beam [...] DYKES, Sandeep Simmons Where: [facility] Patient Educationon 09-23-19 Patient Education Obstetrics and [...] health care provider. General instructions ? Take ziee-exz-nuujgyf and prescription medicines only as told by [...] monitor yo (more content not included)... Normal [facility] CNOVSPon 07-01-2023 CNOVS Visit (SP) Office ([facility]) ---- PARTH POWERS ([id number]) 1955 F Date Time Provider Department 07/01/23 [...] ORAL) Take by mouth once daily. Fish Oil-Carson-3 Fatty Acids (FISH OIL) 340-1,000 mg cap [...] No Submandibular (more content not included)... Normal [facility] Ambulatory Visit Summaryon 0 05-05-2023 Ambulatory Visit Summary PARTH POWERS :1955 Visit Date:05/05/2023 Ambulatory Visit Instructions Your Diagnosis Urge incontinence Tests Performed Urnls Dip Stick Auto w/o Microscopy POC [id number] Your Care Team Attending Physician - SERGIO [...] of therapeutic substance into bladder wall (11/19/2016), [place] node biopsy (03/2012), Lumpectomy (02/2012), External beam radiotherapy (2011), Cystoscopy (04/11/2003), Urodynamics (04/11/2003), D&C - Dilatation and curettage, Excision of calcaneal spur. Discharge Vitals Heart Rate (Peripheral) 68 Respiratory Rate 16 Blood Pressure 128/80 Height 165 cm Height 65 in Weight 180.6 kg Weight 397.32 lb BMI 66.34 What to do next Scheduled Follow-Up Appointments Friday 8:45 AM EST With: Sandeep HILL MD Where: [facility] Normal [facility] Patient Educationon 05-05-19 Patient Education Urology Botulinum Toxin Bladder Injection [...] including vitamins, herbs, eye drops, creams, and apvm-eoo-xedludc medicines. ? Any problems you or family [...] tells you to take them. ? Taking nqdx-kox-rpmjlmk medicines, vitamins, herbs, and supplements. General instructions [...] these instructions at home: Medicines ? Take kbkc-hbs-rnwfara and prescription medicines only as told by [...] ca (more content not included)... Normal [facility] Urology Office/Clinic Noteon 05-05-2023 Urology [...] and history for this patient from Dr. Hill. There have been no associated fever, chills, [...] Local anesthesia. Follow-up With When Contact Information SERGIO DYKES, GIULIA Álvarez In 1 year [facility] [address], [place] [address]- [phone] Additional Instructions: 1 year f/u She will call for Botox Patient Education Botulinum Toxin Bladder Injection Urinary Incontinence I, Antonina Uribe, personally scribed for Dr. Hill on 05/05/2023 09:00:14. . Documentation recorded by the scribe, makayla Uribe, accurately reflects the services(s) I performed and decisions made by me. Authenticated by Dr. Hill on 05/05/2023 09:04:27. Problem List/Past Medical History Ongoing Anticoagulated Aspirin long-term use Eczema Esophageal reflux History of breast cancer Hyperlipidemia Hypertension intermediate card tender current use of anticoagulant therapy Mixed incontinence Neuropathy Urge incontinence Urinary urgency Historical No qualifying data Procedure/Surgical History Injection of therapeutic substance into bladder wall (05/28/2022), Injection of therapeutic substance into bladder wall (02/06/2021), Cystoscopy (10/26/2019), Bilateral mastectomy (02/2019), Injection of therapeutic substance into bladder wall (02/17/2018), Injection of therapeutic substance into bladder wall (11/19/2016), [place] node biopsy (03/2012), Lumpectomy (02/2012), External beam radiotherapy (2011), Cysto (more content not included)... Normal [facility] Comment on above: Result Comment: Elec tronically Signed By: Sandeep HILL MD\.br\Date and Time Signed: 05/05/23 09:04 EST\.br\Electronically Co-Signed By: Antonina Urbie\.br\Date and Time Co-Signed: 05/05/23 09:00 EST XR [...] IVÁN REY Date: 2022-06-26 14:15 Normal [facility] Basophils Auto (Bld) [#/Vol] Ordered By: Regina Biggs on 05-01-2022 Basophils (Bld) [#/Vol] 0.0 10*3/uL 0.0-0.2 [facility] Basophils/100 WBC Auto (Bld) Ordered By: Regina Biggs on 05-01-2022 Basophils/100 WBC (Bld) 0.5 % . [facility] Body fluid albumin measureme nt (mass/volume)Ordered By: Regina Biggs on 05-01-2022 Albumin (Body fld) [Mass/Vol] 4.0 g/dL 3.2-5.5 [facility] Complete Blood Count Auto Di ffon 05-01-2022 Basophils (Bld) [#/Vol] 0.0 10*3/uL Normal 0.0-0.2 [facility] Comment on above: Result Comment: PERF ORMED BY: [place] [address] PATHOLOGIST ELECTRICAL ENGINEERING DESIGNER ARUNA CODY M.D. Performed By: #### C BC, CMP #### [address] Basophils/100 WBC (Bld) 0.5 % Normal . [facility] Comment on above: Performed By: #### C BC, CMP #### [address] Eosinophils (Bld) [#/Vol] 0.1 10*3/uL Normal 0.0-0.45 [facility] Comment on above: Performed By: #### C BC, CMP #### [place] [address] [place] Eosinophils/100 WBC (Bld) 2.1 % Normal . [facility] Comment on above: Performed By: #### C BC, CMP #### [facility] [address] Erythrocyte distribution width (RBC) [Ratio] 14.6 % Normal 11.9-15.3 [facility] Comment on above: Performed By: #### C BC, CMP #### [facility] [address] Hematocrit (Bld) [Volume fraction] 41.0 % Normal 34.0-46.4 [facility] Comment on above: Performed By: #### C BC, CMP #### [address] Hemoglobin (Bld) [Mass/Vol] 13.6 g/dL Normal 11.8-15.4 [facility] Comment on above: Performed By: #### C BC, CMP #### [address] Lymphocytes (Bld) [#/Vol] 1.9 10*3/uL Normal 1.00-4.8 [facility] Comment on above: Performed By: #### C BC, CMP #### [address] Lymphocytes/100 WBC (Bld) 34.2 % Normal . [facility] Comment on above: Performed By: #### C BC, CMP #### [address] MCH (RBC) [Entitic mass] 32.1 pg Normal 24.7-34.3 [facility] Comment on above: Performed By: #### C BC, CMP #### [address] MCV (RBC) [Entitic vol] 96.4 fL Normal 80-100 [facility] Comment on above: Performed By: #### C BC, CMP #### [address] Mean Corpuscular HGB Conc 33.3 g/dL Normal 32.0-35.0 [facility] Comment on above: Performed By: #### C BC, CMP #### [address] Monocytes (Bld) [#/Vol] 0.6 10*3/uL Normal 0.0-0.8 [facility] Comment on above: Performed By: #### C BC, CMP #### [address] Monocytes/100 WBC (Bld) 10.7 % Normal . [facility] Comment on above: Performed By: #### C BC, CMP #### [facility] [address] Neutrophils (Bld) [#/Vol] 3.0 10*3/uL Normal 1.8-7.7 [facility] Comment on above: Performed By: #### C BC, CMP #### [facility] [address] Neutrophils/100 WBC (Bld) 52.5 % Normal . [facility] Comment on above: Performed By: #### C BC, CMP #### [facility] [address] NRBC% 0.2 /100{WBC} Normal 0-0.5 [facility] Comment on above: Performed By: #### C BC, CMP #### [facility] [address] Platelet mean volume (Bld) [Entitic vol] 8.5 fL Normal 6.3-10.7 [facility] Comment on above: Performed By: #### C BC, CMP #### [facility] [address] Platelets (Bld) [#/Vol] 273 10*3/uL Normal 150-450 [facility] Comment on above: Performed By: #### C BC, CMP #### [facility] [address] RBC (Bld) [#/Vol] 4.25 10*6/uL Normal 3.60-5.00 [facility] Comment on above: Performed By: #### C BC, CMP #### [facility] [address] WBC (Bld) [#/Vol] 5.7 10*3/uL Normal 3.8-11.6 [facility] Comment on above: Performed By: #### C BC, CMP #### [facility] [address] Comprehensive Metabolic Pane callie 05-01-2022 Albumin [Mass/Vol] 4.0 g/dL Normal 3.2-5.5 [facility] Comment on above: Performed By: #### C BC, CMP #### [facility] [address] Albumin/Globulin [Mass ratio] 1.7 {ratio} Normal [facility] Comment on above: Performed By: #### C BC, CMP #### [address] ALP [Catalytic activity/Vol] 46 U/L Normal 32-92 [facility] Comment on above: Result Comment: PERF ORMED BY: [place] [address] PATHOLOGIST ELECTRICAL ENGINEERING DESIGNER ARUNA CODY M.D. Performed By: #### C BC, CMP #### [address] ALT [Catalytic activity/Vol] 29 U/L Normal 10-60 [facility] Comment on above: Performed By: #### C BC, CMP #### [address] Anion gap [Moles/Vol] 11.6 mmol/L Normal 6.0-15.0 [facility] Comment on above: Performed By: #### C BC, CMP #### [address] AST [Catalytic activity/Vol] 27 U/L Normal 10-42 [facility] Comment on above: Performed By: #### C BC, CMP #### [facility] [address] [place] [address] [place] Bilirubin [Mass/Vol] 0.4 mg/dL Normal 0.3-1.2 [facility] Comment on above: Performed By: #### C BC, CMP #### [address] Calcium [Mass/Vol] 9.8 mg/dL Normal 8.2-10.2 [facility] Comment on above: Performed By: #### C BC, CMP #### [facility] [address] [place] [address] [place] Chloride [Moles/Vol] 97 mmol/L Normal 95-114 [facility] Comment on above: Performed By: #### C BC, CMP #### [facility] [address] CO2 [Moles/Vol] 28.4 mmol/L Normal 22.0-30.0 [facility] Comment on above: Performed By: #### C BC, CMP #### [address] Creatinine [Mass/Vol] 0.50 mg/dL Normal 0.44-1.03 [facility] Comment on above: Performed By: #### C BC, CMP #### [address] Estimated GFR ( Maria Fernanda > 60 [facility] Comment on above: Result Comment: GFR estimated reference range: According to KDOQI guidelines, <60 ml/min/1.73m2 is sufficient to diagnose a patient with chronic kidney disease. Performed By: #### C BC, CMP #### [address] Estimated GFR (Non- Am > 60 [facility] Comment on above: Performed By: #### C BC, CMP #### [address] Globulin (S) [Mass/Vol] 2.4 g/dL Normal [facility] Comment on above: Performed By: #### C BC, CMP #### [address] Glucose [Mass/Vol] 96 mg/dL Normal 70-100 [facility] Comment on above: Result Comment: [place] om Glucose Reference Range is dependent on time and content of last meal. Glucose of more than 200 mg/dL in a nonstressed, ambulatory subject supports the diagnosis of Diabetes Mellitus. ADA recommended reference range Performed By: #### C BC, CMP #### [address] [place] [address] [place] Potassium [Moles/Vol] 4.0 mmol/L Normal 3.5-5.1 [facility] Comment on above: Performed By: #### C BC, CMP #### [facility] [address] [place] [id number] [place] Protein [Mass/Vol] 6.4 g/dL Normal 6.1-7.9 [facility] Comment on above: Performed By: #### C BC, CMP #### [facility] [address] [place] [id number] [email or web address] Sodium [Moles/Vol] 133 mmol/L Low 136-146 [facility] Comment on above: Performed By: #### C BC, CMP #### [facility] [address] [place] [phone] [facility] [[email or web address]] Urea nitrogen [Mass/Vol] 15 mg/dL Normal 9-23 [facility] Comment on above: Performed By: #### C BC, CMP #### [facility] [address] Creatinine and Glomerular fi ltration rate.predicted panel (S/P/Bld)Ordered By: Regina Biggs on 05-01-2022 Creatinine [Mass/Vol] 0.50 mg/dL 0.44-1.03 [facility] ECG 12 lead ECGon 05-01-2022 ECG 12 lead ECG [facility] Main [place] [address] [place] [address] Electrocardiograph Report Signed Patient: Parth Powers MR#: [id number] 82 : 1955 Acct:[id number] Age/Sex: 66 / F ADM Date: 05/01/22 Loc: Room: Type: [facility] Attending Dr: Regina Biggs MD Ordering [...] Signed By Stacey Coyne MD 0930 Normal [facility] Eosinophils Auto (Bld) [#/Vo l]Ordered By: Regina Biggs on 05-01-2022 Eosinophils (Bld) [#/Vol] 0.1 10*3/uL 0.0-0.45 [facility] Eosinophils/100 WBC Auto (Bl d)Ordered By: Regina Biggs on 05-01-2022 Eosinophils/100 WBC (Bld) 2.1 % . [facility] Erythrocyte distribution wid th Auto (RBC) [Ratio]Ordered By: Regina Biggs on 05-01-2022 Erythrocyte distribution width (RBC) [Ratio] 14.6 % 11.9-15.3 [facility] Estimated glomerular filtrat ion rate (GFR) non- AmericanOrdered By: Regina Biggs on 05-01-2022 GFR/1.73 sq M.predicted among non-blacks MDRD (S/P/Bld) [Vol rate/Area] > 60 mL/Min [facility] Globulin Calc (S) [Mass/Vol] Ordered By: Regina Biggs on 05-01-2022 Globulin (S) [Mass/Vol] 2.4 g/dL [facility] Hematocrit Auto (Bld) [Volum e fraction]Ordered By: Regina Biggs on 05-01-2022 Hematocrit (Bld) [Volume fraction] 41.0 % 34.0-46.4 [facility] Hemoglobin [Mass/volume] in BloodOrdered By: Regina Biggs on 05-01-2022 Hemoglobin (Bld) [Mass/Vol] 13.6 g/dL 11.8-15.4 [facility] Leukocytes [#/volume] correc camilo for nucleated erythrocytes in Blood by Automated counOrdered By: Regina Biggs on 05-01-2022 WBC corrected for nucl RBC Auto (Bld) [#/Vol] 5.7 10*3/uL 3.8-11.6 [facility] Lymphocytes Auto (Bld) [#/Vo l]Ordered By: Regina Biggs on 05-01-2022 Lymphocytes (Bld) [#/Vol] 1.9 10*3/uL 1.00-4.8 [facility] Lymphocytes/100 WBC Auto (Bl d)Ordered By: Regina Biggs on 05-01-2022 Lymphocytes/100 WBC (Bld) 34.2 % . [facility] MCH Auto (RBC) [Entitic mass ]Ordered By: Regina Biggs on 05-01-2022 MCH (RBC) [Entitic mass] 32.1 pg 24.7-34.3 [facility] MCHC Auto (RBC) [Mass/Vol]Or dered By: Regina Biggs on 05-01-2022 MCHC (RBC) [Mass/Vol] 33.3 g/dL 32.0-35.0 [facility] MCV Auto (RBC) [Entitic vol] Ordered By: Regina Biggs on 05-01-2022 MCV (RBC) [Entitic vol] 96.4 fL 80-100 [facility] Monocytes Auto (Bld) [#/Vol] Ordered By: Regina Biggs on 05-01-2022 Monocytes (Bld) [#/Vol] 0.6 10*3/uL 0.0-0.8 [facility] Monocytes/100 WBC Auto (Bld) Ordered By: Regina Biggs on 05-01-2022 Monocytes/100 WBC (Bld) 10.7 % . [facility] Neutrophils Auto (Bld) [#/Vo l]Ordered By: Regina Biggs on 05-01-2022 Neutrophils (Bld) [#/Vol] 3.0 10*3/uL 1.8-7.7 [facility] Neutrophils/100 WBC Auto (Bl d)Ordered By: Regina Biggs on 05-01-2022 Neutrophils/100 WBC (Bld) 52.5 % . [facility] No Panel InformationOrdered By: Regina Biggs on 05-01-2022 Estimated GFR () > 60 mL/Min [facility] Comment on above: GFR estimated refere nce range: According to KDOQI guidelines, <60 ml/min/1.73m2 is sufficient to diagnose a patient with chronic kidney disease. Pharmacy Creatinine Clearance (Chem N/A [facility] Nucleated erythrocytes [Pres ence] in Blood by Automated countOrdered By: Regina Biggs on 05-01-2022 Nucleated RBC Auto Ql (Bld) 0.2 /100{WBC} 0-0.5 [facility] Platelet mean volume Auto (B ld) [Entitic vol]Ordered By: Regina Biggs on 05-01-2022 Platelet mean volume (Bld) [Entitic vol] 8.5 fL 6.3-10.7 [facility] Platelets Auto (Bld) [#/Vol] Ordered By: Regina Biggs on 05-01-2022 Platelets (Bld) [#/Vol] 273 10*3/uL 150-450 [facility] Protein [Mass/volume] in Ser um or PlasmaOrdered By: Regina Biggs on 05-01-2022 Protein [Mass/Vol] 6.4 g/dL 6.1-7.9 [facility] RBC Auto (Bld) [#/Vol]Ordere d By: Regina Biggs on 05-01-2022 RBC (Bld) [#/Vol] 4.25 10*6/uL 3.60-5.00 [facility] Serum or plasma alanine palumbo otransferase measurement without P-5'-P (enzymatic activiOrdered By: Regina Biggs on 05-01-2022 ALT No additional P-5'-P [Catalytic activity/Vol] 29 U/L 10-60 [facility] Serum or plasma albumin/glob ulin mass ratioOrdered By: Regina Biggs on 05-01-2022 Albumin/Globulin [Mass ratio] 1.7 {ratio} [facility] Serum or plasma alkaline juan sphatase measurement (enzymatic activity/volume)Ordered By: Regina Biggs on 05-01-2022 ALP [Catalytic activity/Vol] 46 U/L 32-92 [facility] Serum or plasma anion gap de terminationOrdered By: Regina Biggs on 05-01-2022 Anion gap [Moles/Vol] 11.6 mmol/L 6.0-15.0 [facility] Serum or plasma aspartate am inotransferase measurement (enzymatic activity/volume)Ordered By: Regina Biggs on 05-01-2022 AST [Catalytic activity/Vol] 27 U/L 10-42 [facility] Serum or plasma calcium gisele urement (mass/volume)Ordered By: Regina Biggs on 05-01-2022 Calcium [Mass/Vol] 9.8 mg/dL 8.2-10.2 [facility] Serum or plasma chloride christiane surement (moles/volume)Ordered By: Regina Biggs on 05-01-2022 Chloride [Moles/Vol] 97 mmol/L 95-114 [facility] Serum or plasma glucose gisele urement (mass/volume)Ordered By: Regina Biggs on 05-01-2022 Glucose [Mass/Vol] 96 mg/dL 70-100 [facility] Comment on above: ADA recommended refe rence rangeRandom Glucose Reference Range is dependent on time and content of last meal. Glucose of more than 200 mg/dL in a nonstressed, ambulatory subject supports the diagnosis of Diabetes Mellitus. Serum or plasma potassium me asurement (moles/volume)Ordered By: Regina Biggs on 05-01-2022 Potassium [Moles/Vol] 4.0 mmol/L 3.5-5.1 [facility] [place] Serum or plasma sodium measu rement (moles/volume)Ordered By: Regina Biggs on 05-01-2022 Sodium [Moles/Vol] 133 mmol/L 136-146 [facility] Serum or plasma total biliru bin measurement (mass/volume)Ordered By: Regina Biggs on 05-01-2022 Bilirubin [Mass/Vol] 0.4 mg/dL 0.3-1.2 [facility] Serum or plasma total carbon dioxide measurement (moles/volume)Ordered By: Regina Biggs on 05-01-2022 CO2 [Moles/Vol] 28.4 mmol/L 22.0-30.0 [facility] Serum or plasma urea nitroge n measurement (mass/volume)Ordered By: Regina Biggs on 05-01-2022 Urea nitrogen [Mass/Vol] 15 mg/dL 01-04 [facility] WBC Auto (Bld) [#/Vol]Ordere d By: Regina Biggs on 05-01-2022 WBC (Bld) [#/Vol] 5.7 10*3/uL 3.8-11.6 [facility] XR chest 2V*on 05-01-2022 XR chest 2V* [place] [place] [address] XRay Report Signed Patient: Parth Powers MR#: [id number] [birth year] : 1955 Acct:[id number] Age/Sex: 66 / F ADM Date: 05/01/22 Loc: Room: Type: [facility] Attending Dr: Regina Biggs MD Copies to: [...] Chilango Case M.D.05/01/2022 4:55 PM Dictation Location: [place] [address] Transcribed By: GIOVANNY 05/01/221654 Dictated By: Chilango Case II, MD 05/01/221654 Signed By: 05/01/221654 Normal [facility] Covid-19 PCR (CVDTBH)on 03-16 SARS-CoV-2 (COVID-19) RNA DOUG+probe Ql (Unsp spec) Not detected Normal NOT DETECTED [facility] Comment on above: Result Comment: This test is not yet approved or cleared by the [place] FDA. When there are no FDA-approved or cleared tests available, and other criteria are met, FDA can make tests available under an emergency access mechanism called an Emergency Use Authorization (EUA). The EUA for this test is supported by the [employer] of Health and Human Service's (HHS's) declaration [...] SARS-CoV-2. Performed By: #### C VDTB #### [facility] [address] [place] [address] Dr. Man Ortiz XR LSPINE MIN 4 [...] GILLES JIMENEZ Date: 2021-12-19 18:42 Normal [facility] CBC AUTO DIFFon 11-12-2021 BASO # 0.0 103/ul Normal 0.0-0.1 [facility] Comment on above: Performed By: #### C BC #### [facility] [address] [address] [address] Man Ortiz Basophils/100 WBC (Bld) 0.4 % Normal 0.2-2.0 [facility] Comment on above: Performed By: #### C BC #### [facility] [address] [place] [address] Dr. Man Ortiz EO # 0.1 103/ul Normal 0.0-0.7 [facility] Comment on above: Performed By: #### C BC #### [facility] [address] [place] [address] Dr. Man Ortiz Eosinophils/100 WBC (Bld) 1.6 % Normal 0.9-7.0 [facility] Comment on above: Performed By: #### C BC #### [facility] [address] [place] [address] Dr. Man Ortiz Erythrocyte distribution width (RBC) [Ratio] 15.1 % Critically high 11.0-15.0 [facility] Comment on above: Performed By: #### C BC #### [facility] [address] [place] [address] Dr. Man Ortiz Hematocrit (Bld) [Volume fraction] 37.8 % Normal 36.0-48.0 [facility] Comment on above: Performed By: #### C BC #### [facility] [address] [place] [address] Dr. Man Ortiz Hemoglobin (Bld) [Mass/Vol] 12.8 g/dL Normal 12.0-16.0 [facility] Comment on above: Performed By: #### C BC #### [facility] [address] [place] [address] Dr. Man Ortiz IG # 0.02 10e3/ul Normal 0.00-0.03 [facility] Comment on above: Performed By: #### C BC #### [facility] [address] [place] [address] Dr. Man Ortiz IG % 0.4 % Normal 0.0-0.5 [facility] Comment on above: Performed By: #### C BC #### [facility] [address] [place] [address] Dr. Man Ortzi LYMPH # 0.6 103/ul Critically low 1.2-3.8 [facility] Comment on above: Performed By: #### C BC #### [facility] [address] [place] [address] Dr. Man Ortiz Lymphocytes/100 WBC (Bld) 12.0 % Critically low 20.5-60.0 [facility] Comment on above: Performed By: #### C BC #### [facility] [address] [place] [address] Dr. Man Ortiz MANUAL DIFF REQ NO Normal [facility] Comment on above: Performed By: #### C BC #### [facility] [address] [place] [address] Dr. Man Ortiz MCH (RBC) [Entitic mass] 32.7 pg Normal 26.7-34.0 [facility] Comment on above: Performed By: #### C BC #### [facility] [address] [place] [address] Dr. Man Ortiz MCHC (RBC) [Mass/Vol] 33.9 g/dL Normal 29.9-35.2 [facility] Comment on above: Performed By: #### C BC #### [facility] [address] [place] [address] Dr. Man Ortiz MCV (RBC) [Entitic vol] 96.7 fL Normal 81.0-99.0 [facility] Comment on above: Performed By: #### C BC #### [facility] [address] [place] [address] Dr. Man Ortiz MONO # 0.7 103/ul Normal 0.3-0.8 [facility] Comment on above: Performed By: #### C BC #### [facility] [address] [place] [address] Dr. Man Ortiz Monocytes/100 WBC (Bld) 14.9 % Critically high 1.7-12. 0 [facility] Comment on above: Performed By: #### C BC #### [facility] [address] [place] [address] Dr. Man Ortiz NEUT # 3.5 103/ul Normal 1.4-6.5 [facility] Comment on above: Performed By: #### C BC #### [facility] [address] [address] [address] Man Ortiz Neutrophils/100 WBC (Bld) 70.7 % Normal 43.0-75.0 [facility] Comment on above: Performed By: #### C BC #### [facility] [address] [address] [address] Man Ortiz Platelet mean volume (Bld) [Entitic vol] 9.8 fL Normal 9.5-13.5 [facility] Comment on above: Performed By: #### C BC #### [facility] [address] [place] [address] [address] Man Ortiz PLT 232 103/ul Normal 150-450 [facility] Comment on above: Performed By: #### C BC #### [facility] [address] [address] [address] Man Ortiz RBC 3.91 106/ul Critically low 4.20-5.40 [facility] Comment on above: Performed By: #### C BC #### [facility] [address] [address] [address] Man Ortiz WBC 5.0 103/ul Normal 4.0-11.0 [facility] Comment on above: Performed By: #### C BC #### [facility] [address] [address] [address] Man Ortiz GLYCOHEMOGLOBIN A1Con 2021 ADA RECOMMENDATION SEE BELOW Normal [facility] Comment on above: Result Comment: ADA RECOMMENDED LIMIT 4.0 - 6.0 ADA THERAPEUTIC TARGET < 7.0 ACTION SUGGESTED > 7.0 Performed By: #### A 1C ####[facility] [address] [place] [id number]. Man Ortiz Glucose [Mass/Vol] 134 mg/dL Normal [facility] Comment on above: Performed By: #### A 1C ####[facility] [address] [place] [id number]. Man Ortiz HbA1c (Bld) [Mass fraction] 6.3 % Critically high 4.5-6.2 [facility] Comment on above: Performed By: #### A 1C ####[facility] [address] [place], [place] [address]Bx. Man Ortiz LIPID PROFILEon 11-12-2021 CHOL-HDL RATIO NORM SEE BELOW Normal [facility] [place] [facility] Comment on above: Result Comment: 3.3 - 4.4 LOW RISK 4.4 - 7.1 AVERAGE RISK 7.1 - 11.0 MODERATE RISK >11.0 HIGH RISK Performed By: #### C MP, LIPID ####[facility] [address] [place], [place] [address]Ci. Man Ortiz Cholesterol [Mass/Vol] 233 mg/dL Critically high <=200 [facility] Comment on above: Performed By: #### C MP, LIPID ####[facility] [address] [place], [place] [address]If. Man Ortiz Cholesterol in HDL [Mass/Vol] 61 mg/dL Critically high 40-60 [facility] Comment on above: Performed By: #### C MP, LIPID ####[facility] [address] [place], [place] [address]Tl. Man Ortiz Cholesterol in LDL [Mass/Vol] 123.6 mg/dL Normal [facility] Comment on above: Performed By: #### C MP, LIPID ####[facility] [address] [place], [place] [address]Gg. Man Ortiz Cholesterol.total/Mickie sterol in HDL [Mass ratio] 3.8 {ratio} Normal [facility] Comment on above: Performed By: #### C MP, LIPID ####[facility] [address] [place], [place] [address]Lq. Man Ortiz HDL NORMAL > or = 60 mg/dl - LOW CARDIOVASCULAR RISK <40 mg/dl - HIGH CARDIOVASCULAR RISK Normal [facility] Comment on above: Performed By: #### C MP, LIPID ####[facility] [address] [place], [place] [address]Tm. Man Ortiz LDL CALC NORMAL SEE BELOW Normal [facility] Comment on above: Result Comment: <100 mg/dl OPTIMAL 100 - 129 mg/dl NEAR OR ABOVE OPTIMAL 130 - 159 mg/dl BORDERLINE HIGH 160 - 189 mg/dl HIGH >190 mg/dl VERY HIGH Performed By: #### C MP, LIPID ####[facility] [address] [place] [address]Dr. Man Ortiz Triglyceride [Mass/Vol] 242 mg/dL Critically high <=150 [facility] Comment on above: Performed By: #### C MP, LIPID ####[facility] [address] [place] [address]Dr. Man Ortiz VLDL CALC 48.4 mg/dL Normal [facility] Comment on above: Performed By: #### C MP, LIPID ####[facility] [address] [place] [address]Dr. Man Ortiz PROF 14(COMP METB)on 022 Albumin [Mass/Vol] 3.7 g/dL Normal 3.4-5.[address] [facility] Comment on above: Performed By: #### C MP, LIPID ####[facility] [address] [place], [place] [address]Dr. Man Ortiz Albumin/Globulin [Mass ratio] 1.2 {ratio} Normal [facility] Comment on above: Performed By: #### C MP, LIPID ####[facility] [address] [place] [address]Dr. Man Ortiz ALP [Catalytic activity/Vol] 36 U/L Critically low 46-116 [facility] Comment on above: Performed By: #### C MP, LIPID ####[facility] [address] [place] [address]Dr. Man Ortiz ALT [Catalytic activity/Vol] 46 U/L Normal 14-59 [facility] Comment on above: Performed By: #### C MP, LIPID ####[facility] [address] [place] [address]Dr. Man Ortiz Anion gap [Moles/Vol] 13.5 mmol/L Normal [facility] Comment on above: Performed By: #### C MP, LIPID ####[facility] [address] [place] [address]Dr. Man Ortiz AST [Catalytic activity/Vol] 33 U/L Normal 15-37 [facility] Comment on above: Performed By: #### C MP, LIPID ####[facility] [address] [place] [address]Dr. Man Ortiz Bilirubin [Mass/Vol] 0.5 mg/dL Normal 0.2-1.0 [facility] Comment on above: Performed By: #### C MP, LIPID ####[facility] [address] [place] [address]Dr. Man Ortiz Calcium [Mass/Vol] 8.9 mg/dL Normal 8.5-10.[address] [facility] Comment on above: Performed By: #### C MP, LIPID ####[facility] [address] [place], [place] [address]Dr. Man Ortiz Chloride [Moles/Vol] 101 mmol/L Normal 98-107 [facility] Comment on above: Performed By: #### C MP, LIPID ####[facility] [address] [place], [place] [address]Dr. Man Ortiz CO2 [Moles/Vol] 28.5 mmol/L Normal 21.0-32.0 [facility] Comment on above: Performed By: #### C MP, LIPID ####[facility] [address] [place], [place] [address]Dr. Man Ortiz Creatinine [Mass/Vol] 0.62 mg/dL Normal 0.55-1.02 [facility] Comment on above: Performed By: #### C MP, LIPID ####[facility] [address] [place] [id number]. Man Ortiz EGFR-AF IRISH >60 Normal >=60 [facility] Comment on above: Performed By: #### C MP, LIPID ####[facility] [address] [place] [address]Dr. Man Ortiz EGFR-NON AF IRISH >60 Normal >=60 [facility] Comment on above: Performed By: #### C MP, LIPID ####[facility] [address] [place], [place] [address]Dr. Man Ortiz Globulin (S) [Mass/Vol] 3.2 g/dL Normal [facility] Comment on above: Performed By: #### C MP, LIPID ####[facility] [address] [place] [address]Dr. Man Ortiz Glucose [Mass/Vol] 114 mg/dL Critically high 74-106 [facility] Comment on above: Performed By: #### C MP, LIPID ####[facility] [address] [place] [address]Dr. Man Ortiz Potassium [Moles/Vol] 4.0 mmol/L Normal 3.5-5.1 [facility] Comment on above: Performed By: #### C MP, LIPID ####[facility] [address] [place] [address]Dr. Man Ortiz Protein [Mass/Vol] 6.9 g/dL Normal 6.4-8.[address] [facility] Comment on above: Performed By: #### C MP, LIPID ####[facility] [address] [place] [address]Dr. Man Ortiz Sodium [Moles/Vol] 139 mmol/L Normal 136-[address] [facility] Comment on above: Performed By: #### C MP, LIPID ####[facility] [address] [place] [address]Dr. Man Ortiz Urea nitrogen [Mass/Vol] 12.0 mg/dL Normal 7.0-18.0 [facility] Comment on above: Performed By: #### C MP, LIPID ####[facility] [address] [place] [address]Dr. Man Ortiz Urea nitrogen/Creatinine [Mass ratio] 19.4 mg/mg Normal [facility] Comment on above: Performed By: #### C MP, LIPID ####[facility] [address] [place] [address]Dr. Man Ortiz XR DEXA BONE DENSITYon 10-09 [...] by: GILLES JIMENEZ Date: 2021-10-09 17:05 Normal [facility] PAP ACOG PANEL 2: 30 to 63on 09-08-2021 . . Normal [facility] Comment on above: Result Comment: Perf ormed at: BA Performed By: #### [id number] #### [facility] [address] [place] [address] Dr. Man Ortiz Age Gdln ACOG Testing Comment Normal [facility] Comment on above: Result Comment: <21 or >65 or no age provided Performed By: #### [id number] #### [facility] [address] [place] [address] Dr. Man Ortiz DIAGNOSIS: Comment Normal [facility] Comment on above: Result Comment: NEGA TIVE FOR INTRAEPITHELIAL LESION OR MALIGNANCY. CELLULAR CHANGES ASSOCIATED WITH ATROPHY ARE PRESENT. Performed at: BA Performed By: #### [id number] #### [facility] [address] [place] [address] Dr. Man Ortiz Methodology: Comment Normal [facility] Comment on above: Result Comment: This liquid based ThinPrep(R) pap test was screened with the use of an image guided system. Performed at: WB Performed By: #### [id number] #### [facility] [address] [place] [address] Dr. Man Ortiz Note: Comment Normal [facility] Comment on above: Result Comment: The Pap smear is a screening test designed to aid in the detection of premalignant and malignant conditions of the uterine cervix. It is not a diagnostic procedure and should not be used as the sole means of detecting cervical cancer. Both false-positive and false-negative reports do occur. . Performed at: WB Performed By: #### [id number] #### [facility] [address] [address] [address] Man Ortiz Performed by: Comment Normal [facility] Comment on above: Result Comment: Uvaldo Wood, Disk Operator (ASCP) Performed at: BA Performed By: #### [id number] #### [facility] [address] [address] [address] Man Ortiz Specimen adequacy: Comment Normal [facility] Comment on above: Result Comment: Sati sfactory for evaluation. Endocervical component may not be distinguished in cases of atrophy. Performed at: BA Performed By: #### [id number] #### [facility] [address] [address] [address] Man Ortiz XR hip RT min 2V(w/wo pelvis )*on 01-17-2021 XR hip RT min 2V(w/wo pelvis)* [facility] [employer] Other XR hip RT min 2V(w/wo pelvis)* [facility] [employer] Other XR hip RT min 2V(w/wo pelvis)* [address] [place] [address] [employer] Other XR hip RT min 2V(w/wo pelvis)* [place] [address] [employer] Other XR hip RT min 2V(w/wo pelvis)* XRay Report [employer] Other XR hip RT min 2V(w/wo pelvis)* Signed [employer] Other XR hip RT min 2V(w/wo pelvis)* Patient: Parth Powers MR#: [id number] [employer] Other XR hip RT min 2V(w/wo pelvis)* 80 [employer] Other XR hip RT min 2V(w/wo pelvis)* : 1955 Acct:[id number] [employer] Other XR hip RT min 2V(w/wo pelvis)* Age/Sex: 65 / F ADM Date: 01/17/21 [employer] Other XR hip RT min 2V(w/wo pelvis)* Loc: SOXD Room: Type: [facility] [employer] Other XR hip RT min 2V(w/wo pelvis)* Attending Dr: Stacey Vigil MD [employer] Other XR hip RT min 2V(w/wo pelvis)* Ordering Provider: Stacey Vigil MD [employer] Other XR hip RT min 2V(w/wo pelvis)* Date of Service: 01/17/21 [employer] Other XR hip RT min 2V(w/wo pelvis)* XR/XR hip RT min 2V(w/wo pelvis)*: Arthritis of right hip [employer] Other XR hip RT min 2V(w/wo pelvis)* Copies to: Stacey Vigil MD [employer] Other XR hip RT min 2V(w/wo pelvis)* XR hip RT min 2V(w/wo pelvis)* 01/17/2021 9:28 AM [employer] Other XR hip RT min 2V(w/wo pelvis)* SIGNS AND SYMPTOMS: Right leg weakness with pain in right groin [employer] Other XR hip RT min 2V(w/wo pelvis)* PROTOCOL: Frontal radiograph the pelvis with frontal and frog-leg views of the right hip [employer] Other XR hip RT min 2V(w/wo pelvis)* COMPARISON: None [employer] Other XR hip RT min 2V(w/wo pelvis)* FINDINGS: [employer] Other XR hip RT min 2V(w/wo pelvis)* There is enthesophyte formation of the greater trochanters bilaterally. The joint spaces of the [employer] Other XR hip RT min 2V(w/wo pelvis)* hips are preserved. The bony ring of the pelvis is grossly intact. Vascular calcifications are [employer] Other XR hip RT min 2V(w/wo pelvis)* present in the pelvis. There is no evidence of fracture or dislocation. [employer] Other XR hip RT min 2V(w/wo pelvis)* XR/XR hip RT min 2V(w/wo pelvis)* [employer] Other XR hip RT min 2V(w/wo pelvis)* IMPRESSION: [employer] Other XR hip RT min 2V(w/wo pelvis)* No fracture or dislocation. [employer] Other XR hip RT min 2V(w/wo pelvis)* No significant degenerative change within the joint spaces of the hips. [employer] Other XR hip RT min 2V(w/wo pelvis)* Impression dictated by: Chilango Case M.D.01/17/2021 1:00 PM [employer] Other XR hip RT min 2V(w/wo pelvis)* Dictation Location: [place] [address] [employer] Other XR hip RT min 2V(w/wo pelvis)* Transcribed By: GIOVANNY 01/17/21 1300 [employer] Other XR hip RT min 2V(w/wo pelvis)* Dictated By: Chilango Case II, MD 01/17/21 1259 [employer] Other XR hip RT min 2V(w/wo pelvis)* Signed By: [employer] Other XR hip RT min 2V(w/wo pelvis)* 01/17/21 1300 [employer] Other XR lumbar spine AP/LAT/FLX/E XTon 01-10-2021 XR lumbar spine AP/LAT/FLX/EXT [facility] [employer] Other XR lumbar spine AP/LAT/FLX/EXT [facility] [employer] Other XR lumbar spine AP/LAT/FLX/EXT [facility] [employer] Other XR lumbar spine AP/LAT/FLX/[place] [address] [employer] Other XR lumbar spine AP/LAT/FLX/EXT XRay Report [employer] Other XR lumbar spine AP/LAT/FLX/EXT Signed [employer] Other XR lumbar spine AP/LAT/FLX/EXT Patient: Parth Powers MR#: [id number] [employer] Other XR lumbar spine AP/LAT/FLX/EXT 82 [employer] Other XR lumbar spine AP/LAT/FLX/EXT : 1955 Acct:[id number] [employer] Other XR lumbar spine AP/LAT/FLX/EXT Age/Sex: 65 / F ADM Date: 01/10/21 [employer] Other XR lumbar spine AP/LAT/FLX/EXT Loc: [facility] Room: Type: REG CLI [employer] Other XR lumbar spine AP/LAT/FLX/EXT Attending Dr: Keith Gaspar DO [employer] Other XR lumbar spine AP/LAT/FLX/EXT Ordering Provider: Keith Gaspar DO [employer] Other XR lumbar spine AP/LAT/FLX/EXT Date of Service: 01/10/21 [employer] Other XR lumbar spine AP/LAT/FLX/EXT XR/XR lumbar spine AP/LAT/FLX/EXT: Pain of right lower [employer] Other XR lumbar spine AP/LAT/FLX/EXT extremity;Arthritis of right hip [employer] Other XR lumbar spine AP/LAT/FLX/EXT Copies to: Keith Gaspar, DO [employer] Other XR lumbar spine AP/LAT/FLX/EXT AP with lateral neutral, flexion extension views of the lumbar spine [employer] Other XR lumbar spine AP/LAT/FLX/EXT HISTORY: Continued RIGHT hip pain. [employer] Other XR lumbar spine AP/LAT/FLX/EXT COMPARISON:None [employer] Other XR lumbar spine AP/LAT/FLX/EXT Lumbar lordosis is adequate. [employer] Other XR lumbar spine AP/LAT/FLX/EXT No acute lumbar spine fracture is identified. [employer] Other XR lumbar spine AP/LAT/FLX/EXT 5 mm L4-5 degenerative anterolisthesis. Diffuse osteopenia. [employer] Other XR lumbar spine AP/LAT/FLX/EXT Multilevel disc space narrowing most prevalent the L3-4 level. Endplate spurring. Lower lumbar [employer] Other XR lumbar spine AP/LAT/FLX/EXT hypertrophic facet changes. No hypermobility with flexion and extension views. [employer] Other XR lumbar spine AP/LAT/FLX/EXT No paraspinal abnormality seen. [employer] Other XR lumbar spine AP/LAT/FLX/EXT SI joints are maintained. [employer] Other XR lumbar spine AP/LAT/FLX/EXT XR/XR lumbar spine AP/LAT/FLX/EXT [employer] Other XR lumbar spine AP/LAT/FLX/EXT IMPRESSION: No hypermobility. 5 mm L4-5 anterolisthesis. Diffuse osteopenia. Degenerative change. [employer] Other XR lumbar spine AP/LAT/FLX/EXT Impression dictated by: Tonio Ken M.D.01/10/2021 3:59 PM [employer] Other XR lumbar spine AP/LAT/FLX/EXT Dictation Location: [place] [address] [employer] Other XR lumbar spine AP/LAT/FLX/EXT Transcribed By: PWS 01/10/21 1559 [employer] Other XR lumbar spine AP/LAT/FLX/EXT Dictated By: Tonio Ken DO 01/10/21 [facility] [employer] Other XR lumbar spine AP/LAT/FLX/EXT Signed By: [employer] Other XR lumbar spine AP/LAT/FLX/EXT 01/10/21 [facility] [employer] Other [facility] 11-20-19 19 [facility] * * *Final Report* * * * * * SEE BOTTOM OF REPORT FOR ADDENDED TEXT * * * DATE OF EXAM: Nov 19 2018 10:45AM [facility] 0621 - [facility] / PROCEDURE REASON: Abnormal findings on diagnostic imaging of breast * * * * Physician Interpretation * * * * RESULT: FINAL REPORT #[id number] - [facility] US BIOPSY BREAST LT #[id number] - [facility] STEREO BX BREAST LT #[id number] - [facility] ULTRASOUND GUIDED BIOPSY LEFT [...] attempt a stereotactic biopsy (after consultation with [place] technologists and the patient) to see if [...] Musa performed the entire procedure without an fire control assistant. Correlation is made to exams dated: [...] Musa performed the entire procedure without an fire control assistant. Correlation is made to exams dated: [...] location, eight cores were obtained using the [employer] system. The patient received additional local anesthetic [...] momin/clarissa:11/24/2018 16:19:03 Attending Technologist(s): Sima Blackmon, RT(R)(M), [facility] Tunnel Man(s): Virginia Rodriguez, [facility]; Ana Clement, RT(R)(M), [facility] Multiple national specialty organizations have released breast cancer screening guidelines for women at average risk for developing breast cancer - guidelines that are based on both evidence and opinion, yet differ on when to start and how often to screen for breast cancer. With representation from Breast Imaging, Internal Medicine, Women's Health, Family Medicine, and Medical/Surgical Oncology, the [facility] has carefully reviewed the data and [...] their providers when to stop screening mammograms. Gas Systems Worker: Clarissa Transcribe Date/Time: Nov 19 2018 10:41A Dictated by: DIANA MUSA MD This examination was interpreted and the report reviewed and electronically signed by: DIANA MUSA MD on Nov 19 2018 4:47PM EST This document has been addended by: DIANA MUSA MD on Nov 24 2018 4:19PM EST [id number] Normal [facility] STEREO BX BREAST LTon [facility] STEREO BX BREAST LT * * *Final Repor t* * * * * * SEE BOTTOM OF REPORT FOR ADDENDED TEXT * * * DATE OF EXAM: Nov 19 2018 10:41AM W 0630 - [facility] STEREO BX BREAST LT / PROCEDURE REASON: Abnormal findings on diagnostic imaging of breast * * * * Physician Interpretation * * * * RESULT: FINAL REPORT #[id number] - [facility] US BIOPSY BREAST LT #[id number] - [facility] STEREO BX BREAST LT #[id number] - [facility] ULTRASOUND GUIDED BIOPSY LEFT [...] attempt a stereotactic biopsy (after consultation with [place] technologists and the patient) to see if [...] Musa performed the entire procedure without an fire control assistant. Correlation is made to exams dated: [...] Musa performed the entire procedure without an fire control assistant. Correlation is made to exams dated: [...] location, eight cores were obtained using the [employer] system. The patient received additional local anesthetic [...] momin/clarissa:11/24/2018 16:19:03 Attending Technologist(s): Sima Blackmon, RT(R)(M), [facility] Tunnel Man(s): Virginia Rodriguez, [facility]; Ana Clement, RT(R)(M), [facility] Multiple national specialty organizations have released breast cancer screening guidelines for women at average risk for developing breast cancer - guidelines that are based on both evidence and opinion, yet differ on when to start and how often to screen for breast cancer. With representation from Breast Imaging, Internal Medicine, Women's Health, Family Medicine, and Medical/Surgical Oncology, the [facility] has carefully reviewed the data and [...] their providers when to stop screening mammograms. Gas Systems Worker: Clarissa Transcribe Date/Time: Nov 19 2018 10:41A Dictated by: DIANA MUSA MD This examination was interpreted and the report reviewed and electronically signed by: DIANA UMSA MD on Nov 19 2018 4:47PM EST This document has been addended by: DIANA MUSA MD on Nov 24 2018 4:19PM EST [id number] Normal [facility] US BIOPSY BREAST LTon [facility] US BIOPSY BREAST LT * * *Final Repor t* * * * * * SEE BOTTOM OF REPORT FOR ADDENDED TEXT * * * DATE OF EXAM: Nov 19 2018 10:42AM [facility] 0597 - [facility] US BIOPSY BREAST LT / PROCEDURE REASON: Abnormal findings on diagnostic imaging of breast * * * * Physician Interpretation * * * * FINAL REPORT #[id number] - [facility] US BIOPSY BREAST LT #[id number] - [facility] STEREO BX BREAST LT #[id number] - [facility] ULTRASOUND GUIDED BIOPSY LEFT [...] attempt a stereotactic biopsy (after consultation with [place] technologists and the patient) to see if [...] Musa performed the entire procedure without an fire control assistant. Correlation is made to exams dated: [...] Musa performed the entire procedure without an fire control assistant. Correlation is made to exams dated: [...] location, eight cores were obtained using the [employer] system. The patient received additional local anesthetic [...] momin/clarissa:11/24/2018 16:19:03 Attending Technologist(s): Sima Blackmon, RT(R)(M), [facility] Tunnel Man(s): Virginia Rodriguez, [facility]; Ana Clement RT(R)(M), [facility] Multiple national specialty organizations have released breast cancer screening guidelines for women at average risk for developing breast cancer - guidelines that are based on both evidence and opinion, yet differ on when to start and how often to screen for breast cancer. With representation from Breast Imaging, Internal Medicine, Women's Health, Family Medicine, and Medical/Surgical Oncology, the [facility] has carefully reviewed the data and [...] their providers when to stop screening mammograms. Gas Systems Worker: Clarissa Transcribe Date/Time: Nov 19 2018 10:41A Dictated by : DIANA MUSA MD This examination was interpreted and the report reviewed and electronically signed by: DIANA MUSA MD on Nov 19 2018 4:47PM EST This document has been addended by: DIANA MUSA MD on Nov 24 2018 4:19PM EST [id number] Normal [facility] SURGICAL PATHOLOGYon 019 SURGICAL PATHOLOGY Specimen originated from [facility] Specimen #: [id number] Submitting Physician: Diana Musa M.D. FINAL DIAGNOSIS [...] in two cassettes. Gross examination performed at [address] 11/19/2018 5:19:38 PM B. Received in [...] in one cassette. Gross examination performed at [address] 11/19/2018 9:07:18 PM Date of Report: 11/20/2018 Date of Procedure: 11/19/2018 Date of Receipt: 11/19/2018 Submitted by: Diana Musa M.D. Location: [facility] Diagnostic interpretation performed at [place] [address]. [place] Number: [id number] Normal [facility] Vital Signs Date Time Vital Sign Value Performing Clinician Facility 07-01-2023 14:010400 Body height 162.2 cm Gregg Blum MD Work Phone: [facility] 07-01-2023 14:010400 Body temperature 97.2 [degF] Gregg Blum MD Work Phone: [facility] 07-01-2023 14:010400 Body weight 78.4 kg Gregg Blum MD Work Phone: [facility] 07-01-2023 14:01-0400 Diastolic blood pressure 78 mm[Hg] Gregg Blum MD Work Phone: [facility] 07-01-2023 14:01-0400 Heart rate 90 /min Gregg Blum MD Work Phone: [facility] 07-01-2023 14:01-0400 Respiratory rate 16 /min Gregg Blum MD Work Phone: [facility] 07-01-2023 14:01-0400 SaO2% (BldA) [Mass fraction] 96 % Gregg Blum MD Work Phone: [facility] 07-01-2023 14:01-0400 Systolic blood pressure 130 mm[Hg] Gregg Blum MD Work Phone: [facility] 02-20-2023 11:45-0500 Body height 162.56 cm David Bolanos Other [employer] Other 02-20-2023 11:45-0500 Body mass index (BMI) [Ratio] 30.55 kg/m2 David Bolanos Other [employer] Other 02-20-2023 11:45-0500 Body weight 80.74 kg David Bolanos Other [employer] Other 02-20-2023 11:45-0500 Diastolic blood pressure 87 mm[Hg] David Bolanos Other [employer] Other 02-20-2023 11:45-0500 Systolic blood pressure 132 mm[Hg] David Bolanos Other [employer] Other 02-04-2023 13:45-0400 Body height 162.56 cm David Bolanos Other [employer] Other 02-04-2023 13:45-0400 Diastolic blood pressure 92 mm[Hg] David Bolanos Other [employer] Other 02-04-2023 13:45-0400 Systolic blood pressure 135 mm[Hg] David Bolanos Other [employer] Other 01-21-2023 14:30-0400 Body height 162.56 cm David Bolanos Other [employer] Other 01-21-2023 14:30-0400 Body mass index (BMI) [Ratio] 30.62 kg/m2 David Bolanos Other [employer] Other 01-21-2023 14:30-0400 Body weight 80.92 kg David Bolanos Other [employer] Other 01-21-2023 14:30-0400 Diastolic blood pressure 83 mm[Hg] David Bolanos Other [employer] Other 01-21-2023 14:30-0400 Systolic blood pressure 143 mm[Hg] David Bolanos Other [employer] Other 11-19-2022 11:30-0400 Body height 162.56 cm David Bolanos Other [employer] Other 11-19-2022 11:30-0400 Body mass index (BMI) [Ratio] 30.89 kg/m2 David Bolanos Other [employer] Other 11-19-2022 11:30-0400 Body weight 81.65 kg David Bolanos Other [employer] Other 11-19-2022 11:30-0400 Diastolic blood pressure 89 mm[Hg] David Bolanos Other [employer] Other 11-19-2022 11:30-0400 Systolic blood pressure 134 mm[Hg] David Bolanos Other [employer] Other 06-26-2022 10:30-0400 Body height 162.56 cm David Bolanos Other [employer] Other 06-26-2022 10:30-0400 Body mass index (BMI) [Ratio] 30.55 kg/m2 David Bolanos Other [employer] Other 06-26-2022 10:30-0400 Body weight 80.74 kg David Bolanos Other [employer] Other 06-26-2022 10:30-0400 Diastolic blood pressure 84 mm[Hg] David Bolanos Other [employer] Other 06-26-2022 10:30-0400 SaO2% (BldA) [Mass fraction] 97 % David Bolanos Other [employer] Other 06-26-2022 10:30-0400 Systolic blood pressure 126 mm[Hg] David Bolanos Other [employer] Other 2022 10:35-0500 Body height 162.2 cm Gregg Blum MD Work Phone: [facility] 2022 10:35-0500 Body temperature 97.81 [degF] Gregg Blum MD Work Phone: [facility] 2022 10:35-0500 Body weight 80.74 kg Gregg Blum MD Work Phone: [facility] 2022 10:35-0500 Diastolic blood pressure 74 mm[Hg] Gregg Blum MD Work Phone: [facility] 2022 10:35-0500 Heart rate 74 /min Gregg Blum MD Work Phone: [facility] 2022 10:35-0500 Respiratory rate 16 /min Gregg Blum MD Work Phone: [facility] 2022 10:35-0500 SaO2% (BldA) [Mass fraction] 97 % Gregg Blum MD Work Phone: [facility] 2022 10:35-0500 Systolic blood pressure 134 mm[Hg] Gregg Blum MD Work Phone: [facility] 06-06-2022 11:15-0500 Body height 162.56 cm David Bolanos Other [employer] Other 06-06-2022 11:15-0500 Body mass index (BMI) [Ratio] 30.72 kg/m2 David Bolanos Other [employer] Other 06-06-2022 11:15-0500 Body weight 81.19 kg David Bolanos Other [employer] Other 06-06-2022 11:15-0500 Diastolic blood pressure 88 mm[Hg] David Bolanos Other [employer] Other 06-06-2022 11:15-0500 SaO2% (BldA) [Mass fraction] 97 % David Bolanos Other [employer] Other 06-06-2022 11:15-0500 Systolic blood pressure 138 mm[Hg] David Bolanos Other [employer] Other 03-20-2021 15:45-0500 Body height 162.56 cm Stacey Vigil Other [employer] Other 03-20-2021 15:45-0500 Body mass index (BMI) [Ratio] 31.24 kg/m2 Stacey Vigil Other [employer] Other 03-20-2021 15:45-0500 Body weight 82.56 kg Stacey Ceciliodavid Other [employer] Other 01-10-2021 15:00-0400 Body height 162.56 cm Keith Gaspar Other [employer] Other 01-10-2021 15:00-0400 Body mass index (BMI) [Ratio] 30.89 kg/m2 Keith Gaspar Other [employer] Other 01-10-2021 15:00-0400 Body weight 81.65 kg Keith Chasity Other [employer] Other Encounters Encounter Date Encounter Type Care Provider Facility Start: 12-22-2023 End: 12-22-2023 ambulatory STEPHEN CHUNG Not Available Start: 12-02-2023 End: 12-02-2023 ambulatory Za Espinoza Facility:[facility] Start: 11-03-2023 End: 11-03-2023 ambulatory STEPHEN CHUNG Not Available Start: 10-28-2023 End: 10-28-2023 ambulatory YINKA LOYD Not Available Start: 10-21-2023 End: 10-21-2023 ambulatory Sandeep HILL Facility:[facility] Start: 10-14-2023 End: 10-14-2023 ambulatory Sandeep HILL Facility:[facility] Start: 09-23-2023 End: 09-23-2023 ambulatory Za X Orzech Facility:[facility] Start: 09-01-2023 End: 09-01-2023 ambulatory YINKA HARP Not Available Start: 08-26-2023 End: 08-26-2023 ambulatory Za X Orzech Facility:[facility] Start: 07-02-2023 ambulatory Unique Santos [facility] Work Phone: [facility] Start: 07-01-2023 End: 07-01-2023 ambulatory SELF Facility:[facility] Start: 07-01-2023 End: 07-01-2023 ambulatory Gregg Blum MD Work Phone: Hematology/Oncology Comment on above: Malignant neoplasm o f upper-outer quadrant of left breast in female, estrogen receptor negative (HCC) (Primary Dx) Start: 07-01-2023 End: 07-01-2023 Patient encounter procedure Gregg Blum MD Work Phone: [facility] Start: 05-05-2023 End: 05-05-2023 ambulatory Sandeep HILL Facility:[facility] Start: 04-24-2023 End: 04-24-2023 ambulatory JELENA CALIXTO Not Available Start: 02-25-2023 End: 02-25-2023 ambulatory David Bolanos Other [employer] Other Start: 02-25-2023 Telephone encounter David Bolanos [facility] Start: 02-20-2023 End: 02-20-2023 ambulatory David Bolanos Other [employer] Other Start: 02-20-2023 Office outpatient vi sit 25 minutes David Bolanos [facility] Start: 02-04-2023 (Televisit) Televisit David Persaud [facility] Start: 02-04-2023 End: 02-04-2023 ambulatory David Bolanos Other [employer] Other Start: 02-04-2023 Telephone encounter David Bolanos [facility] Start: 01-21-2023 End: 01-21-2023 ambulatory David Bolanos Other [employer] Other Start: 01-21-2023 Office outpatient vi sit 15 minutes David Bolanos [facility] Start: 11-27-2022 End: 11-27-2022 ambulatory David Bolanos Other [employer] Other Start: 11-27-2022 Telephone encounter David Bolanos [facility] Start: 11-19-2022 End: 11-19-2022 ambulatory David Bolanos Other [employer] Other Start: 11-19-2022 Patient encounter procedure David Bolanos [facility] Start: 08-05-2022 End: 08-05-2022 ambulatory David Bolanos Other [employer] Other Start: 08-05-2022 Telephone encounter David Bolanos [facility] Start: 07-31-[address] DAVID BOLANOS [facility] ity:[facility] Start: 07-02-2022 End: 07-02-2022 ambulatory David Bolanos Other [employer] Other Start: 07-02-2022 Telephone encounter David Bolanos [facility] Start: 06-26-2022 End: 06-27-[address] DAVID BOLANOS [employer] Other Start: 06-26-2022 Office outpatient vi sit 15 minutes David Bolanos [facility] Start: 2022 End: 2022 ambulatory Gregg Blum MD Work Phone: Hematology/Oncology Comment on above: Malignant neoplasm o f upper-outer quadrant of left breast in female, estrogen receptor negative (HCC) (Primary Dx) Start: 2022 End: 2022 Patient encounter procedure Gregg Blum MD Work Phone: [facility] Start: 06-06-2022 End: 06-06-2022 ambulatory David Bolanos Other [employer] Other Start: 06-06-2022 Office outpatient vi sit 15 minutes David Bolanos [facility] Start: 05-16-2022 End: 05-17-[address] EM SERNA . Facility:[facility] Start: 05-01-2022 End: 05-01-2022 ambulatory David Bolanos Facility:[facility] Start: 05-01-2022 End: 05-01-2022 ambulatory MD David Bolanos Work Phone: [facility] Work Phone: Start: 05-01-2022 End: 05-01-2022 Patient encounter procedure MD David Bolanos Work Phone: [facility] Work Phone: Start: 04-25-2022 Encounter for preprocedural laboratory examination DR EM SERNA . [facility] Start: 04-18-2022 End: 05-03-[address] EM [...] 12-19-2021 Adult health examination Radha Bolanos Other [employer] Other Start: 12-19-2021 Gynecological examination normal David Bolanos Other [employer] Other Start: 12-19-2021 Pre-procedure evalua tion check David Bolanos Other [employer] Other Start: 11-15-2021 Encounter for genera l adult medical examination without abnormal findings DR DAVID BOLANOS [facility] Start: 11-12-2021 End: 11-13-[address] DAVID BOLANOS Facility:[facility] Start: 11-12-2021 End: 11-13-2021 Encounter for general adult medical examination without abnormal findings DR DAVID BOLANOS Facility:[facility] Start: 10-09-2021 End: 10-10-[address] VANESSA TORRES . Facility:[facility] Start: 09-03-2021 End: 09-03-[address] DAVID BOLANOS Facility:[facility] Start: 05-10-2021 End: 05-10-2021 ambulatory Stacey Vigil Other [employer] Other Start: 05-10-2021 Office outpatient vi sit 15 minutes Stacey Vigil [facility] Start: 03-22-2021 End: 03-22-2021 ambulatory Stacey Hernandeser Other [employer] Other Start: 03-22-2021 Telephone encounter Stacey Hernandeser [facility] Start: 03-21-2021 End: 03-21-2021 ambulatory Stacey Hernandeser Other [employer] Other Start: 03-21-2021 Telephone encounter Stacey Felter [facility] Start: 03-20-2021 End: 03-20-2021 ambulatory Stacey Hernadneser Other [employer] Other Start: 03-20-2021 Office outpatient vi sit 15 minutes Stacey Felter [facility] Start: 02-27-2021 (Procedure) Short Stacey Vigil [facility] Start: 02-27-2021 End: 02-27-2021 ambulatory Stacey Hernandeser Other [employer] Other Start: 01-17-2021 Office outpatient vi sit 25 minutes Stacey Vigil [facility] Start: 01-10-2021 Office outpatient vi sit 15 minutes Keith Gaspar [facility] Procedures Date Procedure Procedure Detail Performing Clinician Start: 05-01-2022 Plain chest X-ray MD Kelle Bolanos Work Phone: Start: 07-20-2019 Screening for malign ant neoplasm of breast David Luis Miguel Other End: 08-11-2019 Depression screening David Bolanos Other Screening for malign ant neoplasm of breast David Luis Miguel Other Plan of Treatment Date Care Activity Detail Author Start: 05-10-2024 ambulatory Ambulatory Facility:[facility] Start: 04-14-2023 Advance Directive Discussion Advance Directive Discussion [facility] Start: 04-14-2023 Depression Assessment Depression Assessment [facility] Start: 12-13-2022 Influenza [facility] Start: 04-14-2022 ADVANCE DIRECTIVE DISCUSSION ADVANCE DIRECTIVE DISCUSSION [facility] Start: 04-14-2022 DEPRESSION ASSESSMENT DEPRESSION ASSESSMENT [facility] Start: 02-18-2022 DIABETES SCREEN DIABETES SCREEN [facility] Start: 02-18-2022 Diabetes Screening Diabetes Screening [facility] Start: 11-09-2021 Pneumococcal Vaccine: 65+ (2 of 2 - PCV) Pneumococcal Vaccine: 65+ (2 of 2 - PCV) [facility] Start: 11-09-2021 PNEUMOCOCCAL: 65+ (2 - PCV) PNEUMOCOCCAL: 65+ (2 - PCV) [facility] Start: 10-29-2019 Screening for malignant neoplasm of breast Mammogram Screening [facility] Start: 2018 BONE DENSITY BONE DENSITY [facility] Start: 2018 Screening for osteoporosis Bone Density Screening [facility] Start: 2013 RSV Vaccine (1 - 1-dose 60+ series) RSV Vaccine (1 - 1-dose 60+ series) [facility] Start: 1998 COLOGUARD (FIT-DNA) COLOGUARD (FIT-DNA) [facility] Start: 1998 Colonoscopy COLONOSCOPY [facility] Start: 1998 COLORECTAL CANCER SCREENING COLORECTAL CANCER SCREENING [facility] Start: [address] COLONOGRAPHY [facility] Start: 1998 FECAL OCCULT BLOOD FECAL OCCULT BLOOD [facility] Start: 1998 Lipid panel Lipid Screening [facility] Start: 1998 LIPID SCREEN LIPID SCREEN [facility] Start: 1998 Screening for malignant neoplasm of colon [facility] Start: 1998 SIGMOIDOSCOPY SIGMOIDOSCOPY [facility] Start: 1993 Mammography MAMMOGRAM [facility] Start: 1972 Urine microalbumin profile [facility] Start: 06-14-1971 HEPATITIS C SCREENING HEPATITIS C SCREENING [facility] Start: 06-14-1971 Hepatitis C screening Hepatitis C Screening [facility] Immunizations Immunization Date Immunization Notes Care Provider [facility] 01-21-2023 influenza, high dose seasonal, preservative-free David Bolanos Other [employer] Other 07-30-2022 tetanus and diphther ia toxoids, adsorbed, preservative free, for adult use (5 Lf of tetanus toxoid and 2 Lf of diphtheria toxoid) David Bolanos Other [employer] Other 01-23-2022 COVID-19 Pfizer (Pediatric) David Bolanos Other [employer] [facility] Other 01-03-2022 influenza (aIIV4) vaccine, age 65+ yr, quadrivalent, PF (FLUAD QUAD) Gregg Blum MD Work Phone: [facility] 01-03-2022 influenza virus vaccine, split virus (incl. purified surface antigen) David Bolanos Other [employer] Other 01-03-2022 influenza virus vaccine, unspecified formulation Gregg Blum MD Work Phone: [facility] 01-22-2021 COVID-19 Vaccine Pfi zer - Documentation Purposes Only David Bolanos Other [employer] Other 01-10-2021 influenza virus vaccine, split virus (incl. purified surface antigen) David Bolanos Other [employer] Other 11-09-2020 pneumococcal polysaccharide vaccine, 23 valent Gregg Blum MD Work Phone: [facility] 07-19-2020 Kenalog -40 mg Keith Gaspar Other [employer] Other 06-16-2020 COVID-19 Vaccine Pfi zer - Documentation Purposes Only David Bolanos Other [employer] Other 05-26-2020 COVID-19 Vaccine Pfi zer - Documentation Purposes Only David Bolanos Other [employer] Other 03-07-2020 zoster vaccine recombinant Gregg Blum MD Work Phone: [facility] 12-21-2019 influenza virus vaccine, split virus (incl. purified surface antigen) David Bolanos Other [employer] Other 11-09-2019 pneumococcal conjuga te vaccine, 13 valent David Bolanos Other [employer] Other 11-09-2019 zoster vaccine recombinant Gregg Blum MD Work Phone: [facility] 02-14-2009 novel [id number], preservative-free, injectable Gregg Blum MD Work Phone: [facility] Payers Date Payer Category Payer Self-pay [id number] 2018 Medicare MEDICARE MEDICAR E A AND B [id number] 2018-Present [phone] [place] [address] Medicare [id number] 2018 Unknown TRANSAMERICA TRA NSAMERICA SUPPLEMENT [id number] 2018-Present [phone] [address] [place] [address] Indemnity [id number] 1959 Medicare [id number] [id number] 1959 Unknown [id number] 1955 Unknown [id number] 2.16.840.1.979527.3.579.2.59 3 1953 Unknown [id number] 2.16.840.1.591899.3.579.2.59 3 1953 Unknown [id number] 2.16.840.1.937456.3.579.2.59 3 1953 Unknown [id number] 2.16.840.1.708272.3.579.2.59 3 1953 Unknown [id number] 2.16.840.1.109851.3.579.2.59 3 1953 Unknown [id number] 2.16.840.1.875405.3.579.2.59 3 1953 Unknown [id number] 2.16.840.1.575392.3.579.2.59 3 1953 Unknown [id number] 2.16.840.1.067586.3.579.2.59 3 1953 Unknown [id number] 2.16.840.1.825613.3.579.2.59 3 1953 Unknown [id number] 2.16.840.1.376059.3.579.2.59 3 1953 Unknown [id number] 2.16.840.1.155430.3.579.2.59 3 03- Unknown [id number] 2.16.840.1.941206.3.579.2.59 3 - Unknown [id number] 2.16.840.1.291236.3.579.2.59 3 - Unknown [id number] 2.16.840.1.999293.3.579.2.59 3 - Unknown [id number] 2.16.840.1.389856.3.579.2.59 3 - Unknown [id number] 2.16.840.1.861501.3.579.2.59 3 1953 Unknown [id number] 2.16.840.1.524236.3.579.2.72 7 1953 Unknown [id number] 2.16.840.1.229817.3.579.2.72 7 1953 Unknown [id number] 2.16.840.1.950731.3.579.2.72 7 1953 Unknown [id number] 2.16.840.1.442942.3.579.2.72 7 1953 Unknown [id number] 2.16.840.1.535914.3.579.2.72 7 1953 Unknown [id number] 2.16.840.1.107508.3.579.2.72 7 1953 Unknown [id number] 2.16.840.1.466227.3.579.2.72 7 1953 Unknown [id number] 2.16.840.1.567657.3.579.2.12 59 1953 Unknown [id number] 2.16.840.1.878223.3.579.2.12 59 1953 Unknown [id number] 2.16.840.1.102941.3.579.2.12 59 1953 Unknown [id number] 2.16.840.1.958572.3.579.2.12 59 1953 Unknown [id number] 2..840.1.254829.3.579.2.12 59 Unknown [id number] 2.16.840.1.562715.19 Unknown [id number] 2.16.840.1.862948.3.579.2.53 1 Social History Date Type Detail Facility Start: 07-01-2023 Sex Assigned At C [facility] Start: 1955 Sex Assigned At Female [facility] Start: [facility]-19-[facility] Start: 03-19-2012 Tobacco use and exposure Smokeless tobacco non-user [facility] Start: 06-14-2021 End: 07-01-2023 Alcohol intake Ex-drinker (finding) [facility] Start: 1955 Sex Assigned At Not on file C [facility] Start: 07-01-2023 History of Social function [facility] Adult Depression Screening Assessment 0 [facility] Clinical Notes 01-10-2021 to 12-02-2023 Gregg Blum MD - 07/01/2023 6:39 AM [...] health care provider. General instructions ? Take fxky-nts-vcztors and prescription medicines only as told by [...] your health care (more content not included)... [facility] 10-21-2023 Note Patient Education Custom Cystoscopy with [...] you have a fever over 100 degrees. [facility] 09-23-2023 Note Chief Complaint Repeat Botox Evaluation [...] with voice recognition artificial intelligence software, specifically [employer] and or [employer]. Substitutions may have occurred due to the [...] voiding maneuvers -Schedule Botox with PRW Ordered: [id number] Measure Post Void residual urine and/or bladder capacity by US- non-imaging 2. Stress incontinence (N39.3: Stress incontinence (female) (male)) With sneezing, coughing, sometimes activity. Not particularly bothersome to patient at this time. 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 Mixed incontinence Neuropathy Urge incontinence Urinary urgency Historical No qualifying data Procedure/Surgical History Injection of therapeutic substance into bladder wall (05/28/2022), Injection of therapeutic substance into bladder wall (02/06/2021), Cystoscopy (10/26/2019), Bilateral mastectomy (02/2019), Injection of therapeutic substance into bladder wall (02/17/2018), Injection of therapeutic substance into bladder wall (11/19/2016), [place] node biopsy (03/2012), Lumpectomy (02/2012), External beam [...] Immunizations Vaccine Date Status Comments SARS-CoV-2 (COVID-19) [id number] 01/23/2022 Recorded influenza virus vaccine, inactivated 01/03/2022 Recorded SARS-CoV-2 (COVID-19) mRNA BNT-162b2 vax 01/22/2021 R (more content not included)... [facility] Comment on above: Result Comment: Elec tronically Signed By: STACIE Espinoza APRN, [place] X\.br\Date and Time Signed: 09/23/23 13:18 EDT 07-01-2023 Note HNO ID: [id number] Author: GREGG BLUM MD Service: ? Author [...] ORAL) Take by mouth once daily. Fish Oil-[place]arson-3 Fatty Acids (FISH OIL) 340-1,000 mg cap [...] gallop, or rubs. (more content not included)... [facility] 07-01-2023 History of Present illness Narrative PATIENT [...] ORAL) Take by mouth once daily. Fish Oil-Carson-3 Fatty Acids (FISH OIL) 340-1,000 mg cap [...] receptor negative Stage IA (T1mic, N0, M0) ER/CT negative, HER-2 negative left-sided breast cancer diagnosed [...] David Bolanos MD documented in this encounter [facility] 02-20-2023 Evaluation note Encounter Date Diagnosis Assessment Notes Feb, Wound of foot (ICD-10 - S91.309A) Referral to [facility] written. 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 [employer] Other 10-24-2023 Evaluation note* Encounter Date Diagnosis Assessment Notes Treatment Notes Treatment Clinical Notes Jan, COVID-19 (ICD-10 - U07.1) Hold atorvastatin while on paxlovid. Continue rest and supportive care. Denies dyspnea. Discussed further treatment options. Reviewed + test at [facility] lab today [employer] Other 10-10-2023 Evaluation note* Encounter Date Diagnosis [...] is readily compliant w machine and treatment. [employer] Other 08-08-2023 Evaluation note* Encounter Date Diagnosis [...] Requests refill. condition is chronic and stable. [employer] Other 04-24-2023 Evaluation note* Encounter Date Diagnosis Assessment Notes Treatment Notes Treatment Clinical Notes Jul, Strain of left trapezius muscle, initial encounter (ICD-10 - S46.812A) [employer] Other 03-15-2023 Evaluation note* Encounter Date Diagnosis Assessment Notes Treatment Notes Treatment Clinical Notes Jun, Other chronic pain (ICD-10 - G89.29) Jun, Pain in left shoulder (ICD-10 - M25.512) Pt declines PT at this time. Will check xray and followup w Dr. Quinn. Had two massages - no improvement in prominent muscle spasm in L trap area. [employer] Other 03-02-2023 History of Present illness Narrative* [...] receptor negative Stage IA (T1mic, N0, M0) ER/CT negative, HER-2 negative left-sided breast cancer diagnosed [...] CC: David Bolanos MD [facility]* Encounter Date Diagnosis Assessment Notes Treatment Notes Treatment Clinical Notes May, Strain of left trapezius muscle, initial encounter (ICD-10 - S46.812A) Declines cardiac concerns or PT referral as she is traveling soon. Will consider a massage. [employer] Other 02-02-2023 NoteCONSULTATION CONSULTATION DATE: 05/16/2022 HISTORY [...] She will call the office for refills.[facility] [id number] NoteCONSULTATION CONSULTATION DATE: 03/05/2022 CHIEF COMPLAINT: Low [...] like to proceed. CC: David Bolanos M.D.[facility] [id number] NotePAIN MANAGEMENT CONSULTATION CONSULTATION DATE: 02/12/2022 CHIEF [...] answered. The patient would like to proceed.[facility] [id number] Note PAIN MANAGEMENT CONSULTATION CONSULTATION DATE: 01/15/2022 [...] the thoracic spine. CC: David Bolanos M.D.[facility] [id number] Evaluation note* Encounter Date Diagnosis Assessment Notes [...] Above note written by Chadd Irizarry MA, Director Targeted Marketing. Edited and approved by Dr. Stacey Vigil MD. [employer] Other 12-08-2021 Evaluation note* Encounter Date Diagnosis Assessment Notes Treatment Notes Treatment Clinical Notes Mar, Trochanteric bursitis of right hip (ICD-10 - M70.61) [employer] Other 12-07-2021 Evaluation note* Encounter Date Diagnosis [...] Above note writ ten by Chadd Irizarry [facility], Director Targeted Marketing. Edited and approved by Dr. Stacey Vigil MD. [employer] Other 10-06-2021 Evaluation note* Encounter Date Diagnosis [...] note writ ten by Macy Toth CMA, Director Targeted Marketing. Edited and approved by Dr. Stacey Vigil [...] negative findings were considered in medical decision-making. [employer] Other 09-29-2021 Evaluation note* Encounter Date Diagnosis [...] schedule an appt with Dr Joseph Vigil (paint technician) for evaluation and hip joint injection. Dec, Pain of right lower extremity (ICD-10 - M79.604) [employer] Other Evaluation noteNo InformationNortX[employer] Other Evaluation noteNo assessment information available [facility] Work Phone: [employer] note* Diagnosis Malignant neoplasm of upper-outer quadrant of left breast in female, estrogen receptor negative (HCC)- Primary documented in this encounter [facility] note* Diagnosis Malignant neoplasm of upper-outer quadrant of left breast in female, estrogen receptor negative (HCC)- Primary documented in this encounter [facility] general Narrative - Reported* Type Description Date Medical History hypertension Medical History high cholesterol Medical History neuropathy bilateral feet Medical History osteoarthritis Medical History breast cancer Medical History osteopenia Surgical History breast cancer Surgical History lumpectomy, left breast Surgical History lumpectomy, right breast Surgical History bilateral mastectomy Surgical History toe surgery Hospitalization History see above [employer] Other Hispoch general Narrative - ReportedNoIsabella Oliver Other Hischsr general Narrative - Reported* Type Description Date [...] lid lift 05/23/2022 Hospitalization History see above [employer] Other history general Narrative - Reported* Type Description Date [...] lid lift 05/23/2022 Hospitalization History see above [employer] Other Summary Purpose Family History No Family History Records FoundNo Family History Records FoundNo Family History Records FoundNo Family History Records FoundNo Family History Records FoundNo Family History Records Found Advance Directives No Advanced Directives Records Found Advance Directive Response Recorded Date/ Time Advance Directives No December 10:06am Documents on File Type Date Recorded 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 3) Referral Organization [facility] [employer] rosa Referring Provider First Name David Referring Provider Last Name Luis Miguel Referring Provider Specialty [facility] [employer] Referred Organization [facility] Referred Provider Quentin Eric Referred Address [address] [place] [id number] Referred Provider Specialty Neurology Referral Priority Routine Reason *FU 07/10 Marv of fice - Xray today. OV from and May. Thank you. Diagnosis 1 Pain in left shoulde r (M25.512) Referral Organization [facility] [employer] rosa Referring Provider First Name David Referring Provider Last Name Luis Miguel Referring Provider Specialty [facility] [employer] Referred Organization [facility] Referred Provider Adelso Quinn Referred Address ,[place], [place],[address] Referred Provider Specialty Orthopaedic Surgery Referral Priority Routine General Notes Ginger Pruitt 01:20:29 PM >received today, no XR from today in chart, notes locked, other attachments made, referral faxxed Ginger Pruitt 07/03/2022 10:55:25 AM >FAXED FIRST ATTEMPT LETTER Additional Source Comments INFORMATION SOURCE (unrecogn ized section and content) DATE CREATED AUTHOR 11/24/2018 [facility] DATE CREATED AUTHOR AUTHOR'S ORGANIZ ATION 05/18/2022 [facility] DATE CREATED AUTHOR AUTHOR'S ORGANIZ ATION 08/01/2022 [facility] DATE CREATED AUTHOR AUTHOR'S ORGANIZ ATION 07/02/2023 [facility] DATE CREATED AUTHOR AUTHOR'S ORGANIZ ATION 12/04/2023 [facility] DATE CREATED AUTHOR AUTHOR'S ORGANIZ ATION 12/22/2023 [facility] dical Specialists EPIC REASON FOR VISIT (unrecogniz ed section and content) Reason Comments Breast Cancer 1 year follow up Reason Comments Breast Cancer Follow up Care Teams (unrecognized sec tion and content) Team Status: Inactive Member Role Status Dates David Bolanos MD Primary Care Provider Active Regina Biggs MD Attending Provider Active Team Status: Active Member Role Status Dates David Bolanos MD Primary Care Provider Active [employer] Relationship Specialty Start Date End Date David Bolanos MD [address] [place] [address] PCP - General Family Medicine 03/19/12 [employer] Relationship Specialty Start Date End Date David Bolanos MD [address] [place] [phone] PCP - General Family Medicine 03/19/12 [employer] Relationship Specialty Start Date End Date David Bolanos MD [address] [place] [phone] PCP - General Family Medicine 03/19/12 Goals [...] or prosecute any alcohol or drug abuse patient.[facility] the event this information is protected by the Federal Confidentiality of Alcohol and Drug Abuse Patient Records regulations: The Federal rules restrict any use of the information to criminally investigate or prosecute any alcohol or drug abuse patient.[facility] HospitalIn the event this information is protected by the Federal Confidentiality of Alcohol and Drug Abuse Patient Records regulations: The Federal rules restrict any use of the information to criminally investigate or prosecute any alcohol or drug abuse patient.[facility] FOR RECORDS PERTAINING TO PATIENTS WHO [...] BE BASED ON THE PRIMARY CLINICAL RECORDS. [facility]. provides no warranty or guarantee of the accuracy or completeness of information in this document.
== END 2024-01-21 20:54 | disposition home or self-care (01) ==
LOC: SLEEP 20:53
PROVIDERS: PCP Nurse Practitioner Family; Visit Provider Nurse Practitioner Family
DX: G47.33 Obstructive sleep apnea (adult) (pediatric) (principal)
CPT/HCPCS: 95811

== ENCOUNTER 2024-05-08 10:06 | Outpatient (RCR) | payer MEDICARE, OTHER, SELFPAY ==
[2024-05-08] MEDS: DENOSUMAB 60 MG/ML SYRINGE SQ (10:37)
--- NOTE | 2024-05-08 10:52 | PC.NURSE ---
1035: DEBORAH patient for prolia injection. Arrives ambulatory. Lab work drawn in room 232 prior to injection. Prolia given sq as ordered. BP 135/84, p-74 and Resp 18. Denies complaints. 1055_ Leaves ambulatory. Irma Gillespie RN
[2024-05-08 10:53] LABS: Calcium 9.4 mg/dL (8.5-10.1); Estimated GFR (African America >60 (>=60 mL/min/1.73m^2); Estimated GFR (Non-African Ame >60 (>=60 mL/min/1.73m^2)
== END 2024-05-08 10:55 | disposition home or self-care (01) ==
LOC: INF 10:06
PROVIDERS: PCP Nurse Practitioner Family; Visit Provider Family Medicine
DX: M81.0 Age-related osteoporosis without current pathological fracture (principal); M19.90 Unspecified osteoarthritis, unspecified site
CPT/HCPCS: 36415; 82310; 82565; 96372; J0897

== ENCOUNTER 2024-05-17 12:39 | Emergency (ER) | payer MEDICARE, OTHER, SELFPAY ==
[2024-05-17] VITALS (14 sets, daily range): BP systolic 128–171; BP diastolic 90–104; PULSE 83–96; TEMP 37.1; O2SAT 95–98
--- NOTE | 2024-05-17 13:08 | ECG_ITS ---
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
--- NOTE | 2024-05-17 13:08 | ED_ITS ---
HPI - SOB/Dyspnea General Chief Complaint: Shortness of Breath/Dyspnea Stated Complaint: SOB COVID (+) Time Seen by Provider: 05/17/24 13:04 Source: patient Mode of arrival: walk-in History of Present Illness HPI Narrative: 68 year old female presents to the ED for cough, congestion, SOB. Onset was yesterday. She had a positive home Covid-19 test today. Denies fever, N/V/D. Reports chills. Related Data Home Medications ?Medication ?Instructions ?Recorded ?Confirmed donepezil 10 mg tablet 10 mg PO DAILY 05/17/24 05/17/24 losartan 25 mg tablet 25 mg PO DAILY 05/17/24 05/17/24 pravastatin 40 mg tablet 40 mg PO DAILY 05/17/24 05/17/24 Allergies Allergy/AdvReac Type Severity Reaction Status Date / Time acetaminophen (From Vicodin) AdvReac Intermediate Nausea Verified 05/17/24 12:58 hydrocodone (From Vicodin) AdvReac Intermediate Nausea Verified 05/17/24 12:58 hydromorphone (From Dilaudid) AdvReac Nausea Verified 05/17/24 12:58 Latex, Natural Rubber AdvReac Rash Verified 05/17/24 12:58 Review of Systems ROS Constitutional Reports: chills; Denies: fever Ears, nose, mouth, and throat Denies: throat pain or neck pain Cardiovascular Denies: chest pain Respiratory Reports: shortness of breath and cough Gastrointestinal Denies: abdominal pain, nausea, vomiting or diarrhea Musculoskeletal Denies: back pain or neck pain Integumentary/Breast Denies: rash Neurological Denies: headache or weakness in extremities PFSH PFSH Social History Little interest or pleasure in doing things: not at all Feeling down, depressed, or hopeless: not at all Exam Constitutional Vital Signs, click to edit/add: Last Vital Signs Temp 98.8 F 05/17/24 12:59 Pulse 86 05/17/24 14:30 Resp 15 05/17/24 14:30 BP 128/90 05/17/24 14:32 Pulse Ox 98 05/17/24 14:30 O2 Del Method Room Air 05/17/24 12:59 Common normals: no apparent distress and oriented x3 General appearance: cooperative HENMT Nose: nasal discharge Mouth: oral and palatal mucosa normal and lip normal Throat: posterior oropharynx normal Eye Common normals: conjunctivae normal Chest Chest: symmetrical chest wall rise Respiratory Common normals: normal respiratory effort, no use of accessory muscles and clear to auscultation bilaterally Effort & inspection: able to speak in complete sentences and symmetric chest movement Cardio Common normals: regular rate and regular rhythm Neuro Common normals: moves all extremities Sensorium/orientation: awake and alert Speech: speech normal Course Vital Signs Vital signs: Vital Signs Temperature 98.8 F 05/17/24 12:59 Pulse Rate 96 H 05/17/24 12:59 Respiratory Rate 28 H 05/17/24 12:59 Blood Pressure 171/104 H 05/17/24 12:59 Pulse Oximetry 98 05/17/24 12:59 Oxygen Delivery Method Room Air 05/17/24 12:59 Temperature 98.8 F 05/17/24 12:59 Pulse Rate 86 05/17/24 14:30 Respiratory Rate 15 05/17/24 14:30 Blood Pressure 128/90 05/17/24 14:32 Pulse Oximetry 98 05/17/24 14:30 Oxygen Delivery Method Room Air 05/17/24 12:59 MDM - SOB/Dyspnea MDM Narrative Medical decision making narrative: The patient had a positive home Covid-19 test today. Chest x-ray was negative for acute findings. CBC and CMP were unremarkable. VS were unremarkable. Findings were discussed. Follow up with pcp for a recheck, further evaluation and treatment. Medical Records Attestation: I reviewed the patient's medical records. Lab Data Attestation: I reviewed the patient's lab results. Labs: Lab Results 05/17/24 Range/Units 13:20 WBC 6.3 (4.0-11.0) 10^3/uL RBC 4.09 L (4.20-5.40) 10^6/uL Hgb 13.2 (12.0-16.0) g/dL Hct 39.3 (36.0-48.0) % MCV 96.1 (81.0-99.0) fL MCH 32.3 (26.7-34.0) pg MCHC 33.6 (29.9-35.2) g/dL RDW 14.9 (11.0-15.0) % Plt Count 240 (150-450) 10^3/uL MPV 10.8 (9.5-13.5) fL Neut % (Auto) 64.3 (43.0-75.0) % Lymph % (Auto) 19.9 L (20.5-60.0) % [place] % (Auto) 14.1 H (1.7-12.0) % Eos % (Auto) 1.1 (0.9-7.0) % Baso % (Auto) 0.3 (0.2-2.0) % Neut # (Auto) 4.1 (1.4-6.5) 10^3/uL Lymph # (Auto) 1.3 (1.2-3.8) 10^3/uL [place] # (Auto) 0.9 H (0.3-0.8) 10^3/uL Eos # (Auto) 0.1 (0.0-0.7) 10^3/uL Baso # (Auto) 0.0 (0.0-0.1) 10^3/uL Abs Immat Gran (auto) 0.02 (0.00-0.03) 10^3/uL Imm/Tot Granulo (auto) 0.3 (0.0-0.5) % Sodium 140 (136-145) mmol/L Potassium 4.1 (3.5-5.1) mmol/L Chloride 101 (98-107) mmol/L Carbon Dioxide 29.0 (21.0-32.0) mmol/L Anion Gap 14.1 BUN 11.0 (7.0-18.0) mg/dL Creatinine 0.69 (0.55-1.02) mg/dL Est GFR ( Amer) >60 (>=60 mL/min/1.73m^2) Est GFR (Non-Af Amer) >60 (>=60 mL/min/1.73m^2) BUN/Creatinine Ratio 15.9 Glucose 136 H (74-106) mg/dL Calcium 9.4 (8.5-10.1) mg/dL Total Bilirubin 0.4 (0.2-1.0) mg/dL AST 22 (15-37) U/L ALT 32 (14-59) U/L Alkaline Phosphatase 42 L (46-116) U/L Total Protein 7.2 (6.4-8.2) g/dL Albumin 3.6 (3.4-5.0) g/dL Globulin 3.6 g/dL Albumin/Globulin Ratio 1.0 Imaging Data Chest x-ray: Attestation: I have reviewed the pertinent imaging results. Radiologist's impression: ITS Impressions Chest X-Ray 05/17/24 13:08 IMPRESSION: Mild cardiac enlargement without overt cardiac decompensation. A focal infiltrate is not identified at this time. Electronically authenticated by: JOSHUA KIRKPATRICK Date: 05/17/2024 14:12 ECG Data Attestation: ?I have reviewed the pertinent ECG results. (EKG was reviewed by the attending physician. It showed sinus rhythm at a rate of 87. No acute ST segment changes.) Interpretation: Measurements Intervals [place] Rate: 87 P: 45 SC: 150 QRS: -4 QRSD: 74 T: 69 QT: 330 QTc: 374 Interpretive Statements 1100 Sinus rhythm 6220 Possible left atrial enlargement 8102 Low QRS voltage in chest leads 9130 borderline ECG No previous ECG available for comparison Discharge Plan Discharge Chief Complaint: Shortness of Breath/Dyspnea Clinical Impression: COVID-19 Patient Disposition: Home, Self-Care Time of Disposition Decision: 14:56 Condition: Good Mode of Transportation: Private Vehicle Prescriptions / Home Meds: No Action donepezil 10 mg tablet 10 mg PO DAILY losartan 25 mg tablet 25 mg PO DAILY pravastatin 40 mg tablet 40 mg PO DAILY Print Language: Hebrew Instructions: COVID-19 (Coronavirus Disease 2019) (ED), COVID-19: Slow the Coronavirus Spread (ED), How to Recover from COVID-19 at Home (ED) Additional Instructions: Return to the ER if your condition worsens. Referrals: Toyin Barrios MD [Primary Care Provider] - 1 week
--- NOTE | 2024-05-17 13:08 | XR_ITS ---
The [address] [address] Patient Name: PARTH POWERS MRN: [id number] date: 1955 Sex: F Assigned Patient Location: ER Current Patient Location: ER Accession/Order Number: [id number] Exam Date: 05/17/2024 15:30 Report Date: 05/17/2024 14:12 At the request of: CARMELITA PALM Procedure: XR chest 1V EXAM: XR chest 1V at 1340 hours HISTORY: SOB, cough COMPARISON: None. TECHNIQUE: AP upright portable chest x-ray FINDINGS: The heart is mildly enlarged without overt cardiac decompensation. No acute infiltrate, effusion or pneumothorax is readily identified. The osseous structures are grossly intact. XR/XR chest 1V IMPRESSION: Mild cardiac enlargement without overt cardiac decompensation. A focal infiltrate is not identified at this time. Electronically authenticated by: JOSHUA KIRKPATRICK Date: 05/17/2024 14:12
[2024-05-17 13:34] LABS: Basophils Percent Auto 0.3 % (0.2-2.0); Eosinophils Absolute Auto 0.1 10^3/uL (0.0-0.7); Eosinophils Percent Auto 1.1 % (0.9-7.0); Hematocrit 39.3 % (36.0-48.0); Hemoglobin 13.2 g/dL (12.0-16.0); Immature Granulocytes Abs Auto 0.02 10^3/uL (0.00-0.03); Immature Granulocytes Pct Auto 0.3 % (0.0-0.5); Lymphocytes Absolute Auto 1.3 10^3/uL (1.2-3.8); Lymphocytes Percent Auto 19.9 % (20.5-60.0); Mean Corpuscular HGB Conc 33.6 g/dL (29.9-35.2); Mean Corpuscular Hemoglobin 32.3 pg (26.7-34.0); Mean Corpuscular Volume 96.1 fL (81.0-99.0); Mean Platelet Volume 10.8 fL (9.5-13.5); Monocytes Absolute Auto 0.9 10^3/uL (0.3-0.8); Monocytes Percent Auto 14.1 % (1.7-12.0); Neutrophils Absolute Auto 4.1 10^3/uL (1.4-6.5); Neutrophils Percent Auto 64.3 % (43.0-75.0); Platelet Count 240 10^3/uL (150-450); Red Blood Count 4.09 10^6/uL (4.20-5.40); Red Cell Distribution Width 14.9 % (11.0-15.0); White Blood Count 6.3 10^3/uL (4.0-11.0)
[2024-05-17 13:56] LABS: Alanine Aminotransferase 32 U/L (14-59); Albumin Level 3.6 g/dL (3.4-5.0); Alkaline Phosphatase 42 U/L (46-116); Anion Gap 14.1; Aspartate Amino Transferase 22 U/L (15-37); BUN Creatinine Ratio 15.9; Bilirubin Total 0.4 mg/dL (0.2-1.0); Calcium 9.4 mg/dL (8.5-10.1); Chloride 101 mmol/L (98-107); Estimated GFR (African America >60 (>=60 mL/min/1.73m^2); Estimated GFR (Non-African Ame >60 (>=60 mL/min/1.73m^2); Globulin 3.6 g/dL; Glucose 136 mg/dL (74-106); Potassium 4.1 mmol/L (3.5-5.1); Sodium 140 mmol/L (136-145); Total Protein 7.2 g/dL (6.4-8.2)
== END 2024-05-17 15:16 | disposition home or self-care (01) ==
PROVIDERS: Nurse Practitioner Family; Emergency Provider Emergency Medicine; PCP Family Medicine
DX: U07.1 COVID-19 (principal); R06.02 Shortness of breath
CPT/HCPCS: 36415; 71045; 80053; 85025; 93005; 99285

== ENCOUNTER 2024-09-22 10:02 | Outpatient (OUT) | payer MEDICARE, OTHER, SELFPAY ==
--- NOTE | 2024-09-22 10:09 | XR_ITS ---
The [address] [address] Patient Name: PARTH POWERS MRN: [id number] date: 1955 Sex: F Assigned Patient Location: [facility] Current Patient Location: Accession/Order Number: [id number] Exam Date: 09/22/2024 10:40 Report Date: 09/22/2024 10:45 At the request of: GERALDINE CLARKE Procedure: XR foot RT min 3V RIGHT FOOT - 3 views CLINICAL DATA: Right foot ulcer at plantar aspect of the first metatarsal phalangeal joint recent development of pain and leakage. COMPARISON: 02/21/2023 Standing AP, lateral and oblique views were obtained. A marker was placed at the site of concern. There are postoperative changes of fusion at the first metatarsal phalangeal joint where a screw is again noted. There is no acute fracture or dislocation. No developing bony destruction is noted. A small posterior calcaneal spur is again noted. There is a similar calcification along the plantar surface of the mid calcaneus. There are no significant soft tissue abnormalities. XR/XR foot RT min 3V IMPRESSION: SIMILAR POSTOPERATIVE CHANGES AT THE FIRST TOE. NO ACUTE BONY FINDINGS. Impression dictated by: Tatyana Jones M.D. 09/22/2024 10:45 AM Dictation Location: [place] [address] Electronically authenticated by: [id number] Y Date: 09/22/2024 10:45
== END 2024-09-22 10:03 | disposition home or self-care (01) ==
LOC: RAD 10:04
PROVIDERS: PCP Family Medicine; Visit Provider Physician Assistant
DX: M79.671 Pain in right foot (principal); L97.519 Non-pressure chronic ulcer of other part of right foot with unspecified severity; M24.674 Ankylosis, right foot
CPT/HCPCS: 73630

== ENCOUNTER 2024-09-22 10:41 | Outpatient (OUT) | payer MEDICARE, OTHER, SELFPAY ==
--- OUTSIDE RECORDS SUMMARY | 2023-10-20 09:20 | XMS_ITS ---
Author Organization [facility] Address [address] [place] [address] Care Team Providers Care Christmas Tree Farmer Name Role Phone Néstor Oliva Unavailable [phone] Allergies Allergen (clinical drug ingredient) Drug/Non Drug Allergy documented on EMR Reaction Allergy Type Onset Date Status Latex Latex (uncoded) Unknown Allergy Acti ve vicodin (uncoded) Unknown Allergy Ac tive hydromorphone Dilaudid Unknown Drug Allergy Act nevin REASON FOR VISIT LEFT HIP PAIN, Left hip pain Medications Medication SIG (Take, Route, Frequency, Duration) Notes Start Date End Date Status biotin Active alendronate Active losartan Active Calcium 600+D Active multivitamin Active vitamin E Active Vitamin D3 Active pravastatin Active Vitamin C Active Vitamin B6 Active Social History Tobacco Use: Social History Observation Description Date Details (start date - stop date) Never Smoker NA - NA AUDIT-C (Standard) Question Answer Notes Did you have a drink containing alcohol in the p ast year? No Points 0 Interpretation Negative Tobacco Control (Standard) Question Answer Notes Tobacco use: Nonsmoker Vital Signs Weight 188 lbs 10/20/2023 Encounters Encounter Location Date Provider Diagnosis [facility] Office [address] [place] [address] [place] [address] 10/20/2023 Néstor Oliva Trochanteric bursiti s of left hip M70.62 Assessments Encounter Date Diagnosis (ICD Code) Assessment Notes Treatment Notes Treatment Clinical Notes Section Notes 10/20/2023 Trochanteric bursitis of left hip (ICD-10 - M70.62) Left hip greater trochanteric bursitis Left hip osteoarthritis 10/20/2023 Other I discussed today with Essie regarding her left hip pain. Pain is mostly lateral today she is tender to palpation over the greater trochanter. Will start with GT injection in the office today. If no improvement will consider intra-articul ar injection. Follow-up in 6 weeks Left hip greater trochanteric bursitis Left hip osteoarthritis Plan Of Treatment Treatment Notes Assessment Notes Other I discussed today wi th Essie regarding her left hip pain. Pain is mostly lateral today she is tender to palpation over the greater trochanter. Will start with GT injection in the office today. If no improvement will consider intra-articular injection. Follow-up in 6 weeks Next Appt Details Follow Up: 6 Weeks, Reason: Progress Notes * ESSIE POWERS KDOB: (68 yo F)Acc No.[id number]:10/20/2023 Patient: ESSIE OGLESBY Provider: Lexie Olvia DO :1955 A ge:68 Y S ex:Female Date:10/20/2023 Address:[address] [place], [place] [id number] Subjective: * Chief Complaints: * L EFT HIP PAINLeft hip pain * HPI: G eneral Follow Up Information: Essie is a pleasant 68-year-old female presenting today for evaluation of left hip pain. Pain has been ongoing for several months now. Pain mostly located laterally. Pain is throbbing and aching in nature. Pain made worse with laying on the affected side. She has tried rwxw-xoc-gcpwujl medication with no relief. Denies any falls or injuries. Denies any numbness or tingling. G eneral Info per Patient Report: Have you seen another doctor in this practice? N o. S malik affected is L eft. J oint or body part affected is h ip. P ain occurred i njury. W ork related: N o. M otor vehicle accident: N o. T hird green party responsibility: N o. Q uality of pain is m oderate. T ype of pain: d ull. H ave you been seen by a Dentist in the last year? Y es. D o you have any dental problems? N o. * ROS: C onstitutional: Denies C hills. P M and R Intake: Denies F ever. M usculoskeletal: Joint pain Y es. C ardiovascular: Leg/Ankle Swelling Y es. N eurological: Numbness/ Tingling Yes. D enies fever, chills, numbness tingling. * Medical History: * Surgical History: R t big toenail removed 2017Rt big toe arthroscopy, 7 screws inserted 2018 * Family History: N o Family History documented.. * Social History: E xercise regularly D o you exercise? N o. W hat is your place of residence? W here do you live? P rivate home. A RAFAEL-C (Standard) D id you have a drink containing alcohol in the past year? N o, P oints 0 , I nterpretation N egative. T obacco Control (Standard) T obacco use: N onsmoker. * Medications: T akingvitamin E Vitamin D3 Vitamin C Vitamin B6 pravastatin multivitamin losartan Calcium 600+D biotin alendronate Medication List reviewed and reconciled with the patientTaking vitamin E Taking Vitamin D3 Taking Vitamin C Taking Vitamin B6 Taking pravastatin Taking multivitamin Taking losartan Taking Calcium 600+D Taking biotin Taking alendronate Medication List reviewed and reconciled with the patient * Allergies: L atexDilaudidvicodinno[Allergies Verified] Objective: * Vitals: W t: 188 lbs. * Examination: G eneral examination: L eft lower extremity:Skin intact. No pain with logroll. No pain with FADIR or MARIANO. There is tenderness palpation to the greater trochanter. Motor and sensory exam intact without deficits. 2+ DP pulse. X -ray Imaging Studies: R eviewed plain film x-rays left hip in the office today which demonstrate mild degenerative changes with osteoarthritis present. Assessment: * Assessment: 1. T rochanteric bursitis of left hip - M70.62 (Primary) Left hip greater trochanteri c bursitis Left hip osteoarthritis. Plan: * Treatment: * Procedures: U nder sterile conditions the left hip was prepped with alcohol Betadine. The left lateral hip was injected with solution of 2 cc 0.25% Marcaine and 80 mg Depo- Medrol. * Procedure Codes: 2 0610 Injection major joint/bursa, Modifiers: LT J1010 Injection, Methylprednisolone Acetate 1 mg, Units: 80.00 , Modifiers: JZ * Follow Up: 6 Weeks Forms: * Images: * Sign off status: Completed true * Provider: Lexie Oliva, Date: 0 10/20/2023 Generated for Maryann renteria/Chris/Edinson on: 0 09/22/2024 10:44 AM EDT History and Physical Notes * HPI (History of Present Illness) Category Sub-Category Detail Notes Category Not es General Follow Up Information Essie is a pleasant 68-year-old female presenting today for evaluation of left hip pain. Pain has been ongoing for several months now. Pain mostly located laterally. Pain is throbbing and aching in nature. Pain made worse with laying on the affected side. She has tried dyxg-naf-fnieoii medication with no relief. Denies any falls or injuries. Denies any numbness or tingling General Info per Patient Report Side affected is Left Joint or body part affected is hip Pain occurred injury Work related: No Motor vehicle accident: No Quality of pain is moderate Type of pain: dull Have you seen another doctor in this pra ctice? No Third green party responsibility: No Have you been seen by a Dentist in the l ast year? Yes Do you have any dental problems? No Examination Category Sub-Category Detail Notes Category Not es General examination Left low er extremity:Skin intact. No pain with logroll. No pain with FADIR or MARIANO. There is tenderness palpation to the greater trochanter. Motor and sensory exam intact without deficits. 2+ DP pulse X-ray Imaging Studies Review ed plain film x-rays left hip in the office today which demonstrate mild degenerative changes with osteoarthritis present.
--- OUTSIDE RECORDS SUMMARY | 2023-11-24 10:10 | XMS_ITS ---
Author Organization [facility] Address [address] [place] [address] Care Team Providers Care Siding Coreboard Inspector Name Role Phone Néstor Oliva Unavailable [phone] REASON FOR VISIT LEFT HIP RECHECK - CSI 10/19 Medications Medication SIG (Take, Route, Frequency, Duration) Notes Start Date End Date Status Vitamin C Active Vitamin D3 Active biotin Active alendronate Active vitamin E Active pravastatin Active Vitamin B6 Active losartan Active multivitamin Active Calcium 600+D Active Encounters Encounter Location Date Provider Diagnosis [facility] Office [address] [place] [address] [place] [address] 11/24/2023 Néstor Oliva Plan Of Treatment No Information Progress Notes * PARTH POWERS KDOB: (69 yo F)Acc No.[id number]:11/24/2023 Patient: PARTH OGLESBY Provider: Lexie Oliva DO :1955 A ge:68 Y S ex:Female Date:11/24/2023 Address:[address] [place], [place] [address] Subjective: * Chief Complaints: * 1 . LEFT HIP RECHECK - CSI 10/19. * Medical History: * Medications: T aking vitamin E , Taking Vitamin D3 , Taking Vitamin C , Taking Vitamin B6 , Taking pravastatin , Taking multivitamin , Taking losartan , Taking Calcium 600+D , Taking biotin , Taking alendronate Objective: * Vitals: Assessment: Plan: * Treatment: Forms: * Images: * Electronic signature of Kathleen Oliva DO on 09/22/2024 at 10:44 AM EDT Sign off status: Pending * Provider: Lexie Oliva, DO Date: 0 11/24/2023 Generated for Maryann renteria/Chris/Edinson on: 0 09/22/2024 10:44 AM EDT
--- OUTSIDE RECORDS SUMMARY | 2024-09-20 07:13 | XMS_ITS | Continuity of Care Document ---
Author Organization [facility] Address [address] [place] [address] Phone Care Team Providers Care Ear Muff Assembler Name Role Phone Toyin Barrios MD Primary Care Provider Anahi Rg Attending Provider + Care Teams Patient Care Team Team Status: Active Member Role Status Dates Toyin Barrios MD Primary Care Provider Active Visit Care Team Team Status: Inactive Member Role Status Dates Toyin Barrios MD Primary Care Provider Active Start: August 09, 2024 End: August 09, 2024 TYRA Roque Attending Provider Active Start: August 09, 2024 End: August 09, 2024 Visit Care Team Team Status: Inactive Member Role Status Dates Toyin Barrios MD Primary Care Provide r, Attending Provider Active Start: September 20, 2024 End: September 20, 2024 Chief Complaint and Reason for Visit Chief Complaint Admit Date mild cog impairment August 09, 2024 11: 15am sore on right foot September 20, 2024 10:42 am Reason for Visit Admit Date Foot ulcer due to secondary DM September 20, 2024 10:42am Allergies, Adverse Reactions, Alerts Allergen Type Severity Reaction Last Updated Verified Status Comments acetaminophen Allergy Unknown Hives September 20 10:48am Yes Active Onset Date: 04/14/2018 adhesive tape Allergy Unknown Hives September 20 10:48am Yes Active hydrocodone Allergy Unknown Hives September 20 10:48am Yes Active Onset Date: 04/14/2018 hydromorphone Allergy Unknown Hives September 20 10:48am Yes Active latex Allergy Unknown Hives September 20, 2024 10:48am Yes Active morphine Allergy Unknown Hives September 20, 2024 10:48am Yes Active Social History Smoking Status Status Start Date End Date Date of Observa tion Never smoked tobacco (finding) September 20, 2024 10:49am Observation Status Observation Response Date of Response Patient Sex Female September 20, 2024 1 1:12am Assigned Sex Female [birth year] Family History Relationship Condition Age at Onset Recorded Date/T gregor father Unknown Malignant neoplasm Unknown Hypertension Unknown mother Hypertension Unknown Unknown Problems Active Problems Medical Problem Onset Date Status COVID-19 Active Medicare annual wellness visit, subsequent Active Encounter for immunization Activ e Sinusitis, acute maxillary Activ e Hyperlipemia Active Osteoarthritis Active Foot ulcer due to secondary DM A ctive Left hip pain Active Hypertension Active Medications Medication Status Dose Units Route Directions Qty Days St art Date Stop Date End Date Instructions Pravastatin 40 mg tablet Discont inued 40 MG PO Daily 2023 10:48a m September 03, 2024 10:44 am FreeTextSig: TAKE 1 TABLET BY MOUTH EVERY DAY; Note: Source Status: Taking; Refills: 3; Qty: 90 Tablet; Provider: Sophie Deal ( ) Tizanidine 4 mg tablet Discont inued 0 .ROUTE .COMPLEX 270 June 23, 2023 1:09pm September 20, 2024 10:59 am TAKE 1 TABLET BY MOUTH THREE TIMES A DAY NEEDED FOR 90 DAYS Losartan 25 mg tablet Discont inued 0 .ROUTE .COMPLEX 84 September 24, 2023 1:00pm Septe mber 2023 10:21 am TAKE ONE TABLET BY MOUTH ONCE DAILY Losartan 25 mg tablet Discont inued 0 .ROUTE .COMPLEX 84 Sept shefali 2023 10:21a m Dece shefali 2023 9:48a m TAKE ONE TABLET BY MOUTH ONCE DAILY Losartan 25 mg tablet Discont inued 0 .ROUTE .COMPLEX 84 Decemb er 2023 9:48am u 2024 10:03 am TAKE ONE TABLET BY MOUTH ONCE DAILY Nirmatrelvir -Ritonavir (Paxlovid) 300 mg (150 mg x 2)-100 mg tablets,dose pack Discont inued 0 PO .COMPLEX 30 ua 2024 1:00am September 20, 2024 10:59 am take TWO 150 mg tablets of nirmatrelvir with ONE 100 mg tablet of ritonavir twice daily for 5 days PO Cefdinir 300 mg capsule Discont inued 300 MG PO Twice daily 14 2024 1:00am September 20, 2024 10:59 am Losartan 25 mg tablet Active 0 .ROUTE .COMPLEX 84 ua ry 2024 10:03a m TAKE ONE TABLET BY MOUTH ONCE DAILY Pravastatin 40 mg tablet Active 40 MG PO Daily September 03, 2024 10:44a m FreeTextSig: TAKE 1 TABLET BY MOUTH EVERY DAY; Note: Source Status: Taking; Refills: 3; Qty: 90 Tablet; Provider: Sophie Deal ( ) Pravastatin 40 mg tablet Discont inued 40 MG PO Daily 2023 1:00am 2023 10:49 am FreeTextSig: TAKE 1 TABLET BY MOUTH EVERY DAY; Note: Source Status: Taking; Refills: 3; Qty: 90 Tablet; Provider: Sophie Deal ( ) Aspirin 81 mg tablet,chewa ble Discont inued 1 TAB PO Daily August 18, 2023 12:00a m August 19, 2023 1:10p m FreeTextSi tablet Orally Once a day; Note: Source Status: Taking; Provider: Sophie Dela ( ) Losartan 25 mg tablet Discont inued 25 MG PO Daily August 18, 2023 12:00a m September 24, 2023 1:00p m FreeTextSig: TAKE 1 TABLET BY MOUTH EVERY DAY; Note: Source Status: Taking; Refills: 3; Qty: 90 Tablet; Provider: Sophie Deal ( ) Calcium Carbonate 600 mg calcium (1,500 mg) tablet Active 1 TAB PO Twice daily August 18, 2023 12:00a m FreeTextSi tablet with meals Orally Twice a day; Note: Source Status: Taking; Provider: Sophie Deal ( ) Biotin 300 mcg tablet Active 1 TAB PO Daily August 18, 2023 12:00a m FreeTextSi tablet Orally Once a day; Note: Source Status: Taking; Provider: Sophie Deal ( ) Cholecalcife rol (Vitamin D3) 1,250 mcg (50,000 unit) capsule Active 1250 MCG PO every month August 18, 2023 12:00a m Ferrous Sulfate (Feosol) 325 mg (65 mg iron) tablet Active 325 MG PO Daily August 18, 2023 12:00a m Rangely 8-Swg-Nzl-Fi sh Oil (Fish Oil) 300-1,000 mg capsule Active 1 CAP PO Daily August 18, 2023 12:00a m Magnesium Citrate 100 mg capsule Active 100 MG PO Daily August 19, 2023 12:00a m Doxycycline Hyclate 100 mg tablet Active 100 MG PO Twice daily September 20, 2024 12:00a m Donepezil (Aricept) 10 mg tablet Discont inued 10 MG PO Daily at bedtime December 01, 2023 12:00a m Augus 2023 9:58a m Donepezil (Aricept) 5 mg tablet Active 5 MG PO Daily at bedtime December 01, 2023 12:00a m Denosumab (Prolia) 60 mg/mL syringe Active 60 MG SUBCUT EVERY 6 MONTHS December 01, 2023 12:00a m Alendronate 35 mg tablet Discont inued 35 MG PO Once 2023 1:00am Febru nataly2023 9:44a m Alendronate 35 mg tablet Discont inued 35 MG PO every week 2023 9:44am Augus t 2023 10:13 am Tizanidine 4 mg tablet Discont inued 4 MG PO Three times daily June 23, 2023 12:00a m June 23, 2023 1:09p m Immunizations Immunization Event Date Not Given Reason Dose Number Court Monitor Lot Number Vaccine Information Statement (VIS) Detail Pfizer/Comirnaty , Pediatric Age 5-11 January 23, 2022 COVID-19 mRNA, Comirnaty (Pfizer) May 26, 2020 COVID-19 mRNA, Comirnaty (Pfizer) June 16, 2020 COVID-19 mRNA, Comirnaty (Pfizer) January 22, 2021 Fluzone TIV High-Dose 65YR+ January 29, 2024 [id number] influenza, unspecified formulation December 21, 2019 influenza, unspecified formulation January 10, 2021 influenza, unspecified formulation January 03, 2022 influenza, unspecified formulation January 21, 2023 Pneumococcal Conjugate Vaccine, 13 valent November 09, 2019 Pneumococcal Polysacc. Vaccine, 23 valent November 09, 2020 Tetanus, Diphtheria adult, 2 Lf pres free abs July 30, 2022 Vital Signs Vital Reading Result Reference Range Collection Date/Time Height 64 [in_i] September 20, 2024 10:43am Weight 77.28 kg September 20, 2024 10:43am Body Temperature 98.3 [degF] 97.6-99.0 September 20, 025 10:43am Heart Rate 82 /min 60-100 September 20, 2024 10:43am BP Systolic 121 mm[Hg] 100-140 September 20, 2024 10:43am BP Diastolic 77 mm[Hg] 60-100 September 20, 2024 10:43am BMI (Body Mass Index) 29.2 kg/m2 September 202024 10:43am Advance Directives Advance Directive Response Recorded Date/ Time Advance Directives No December 01, 2023 10:15am Insurance Providers Guarantor Essie Powers Address [address] [place] [id number] Contact Info. Home Phone: Payer Policy Id Coverage Id Subscriber's Name Subscriber Id Effective Date Expiration Date Medicare [id number] Essie Powers [id number] Regular Insurance [id number] Essie Powers [id number] Encounters Encounter Location(s) Arrival/Admit Date Discharge/Depart Date Provider(s) Discharged [facility] August 09, 2024 11:15am August 09, 2024 4:46pm Anahi Rg , GREEN PIPEFITTER-CHIEF MEDICAL DIRECTOR-C Departed Physician/Provi jenny Office Visit [facility] September 20, 2024 10:42am September 20, 2024 11:08am Toyin Barrios MD Recent Diagnosis Onset Date Admit Date Foot ulcer due to secondary DM J 2024 10:42am Assessments Diagnosis Onset Date Resolution Status Admit Date Foot ulcer due to secondary DM acute September 20, 2024 10:42am Plan of Treatment Author Toyin Barrios [facility] Authored September 20, 2024 11:11 am Started on Doxy. Recommend w ound care/podiatry for debridement and dressing. Scheduling 3 weeks out at [facility] ([place] has seen Dr. Gallegos in the past). Essie will contact Dr. Yanet Lazcano and we will enter a referral as well. Take antibiotic as prescribed. Future Tests Future scheduled test information is unavailable Pending Tests Pending diagnostic test information is unavailable Future Visits Future appointment information is unavailable Referrals to Other Providers Reason for Referral Referral Start Date Provider Provider Contact Information Provider Address E13.621 - Other specified diabetes mellitus with foot ulcer,L97.753 - Non-pressure chronic ulcer of other part of unspecified foot with unspecified severity September 20, 2024 Horacio Lazcano DPM Work Phone: [facility] [address] Future Procedures Future procedure information is unavailable Future Medications Future medication information is unavailable Patient Instructions Patient instructions are unavailable Hospital Discharge Instructions Ambulatory Orders* Referral to Podiatry Time Frame: 09/20/24, Location: None Selected
--- OUTSIDE RECORDS SUMMARY | 2024-09-22 10:44 | XMS_ITS | Encounter Summary ---
Author Organization [facility] Address [address] [place] [address] Care Team Providers Care Iron Handler Name Role Phone Toyin Barrios MD Primary Care Provider [phone] Source Comments In the event this information is protected by the Federal Confidentiality of Alcohol and Drug AbusePatient Records regulations: The Federal rules restrict any use of the information to criminally investigate or prosecute any alcohol or drug abuse patient.[facility] Encounter Details Date Type Department Care Team (Late st Contact Info) Description 11/19/2018 Radiology Radiology [address] [place] [address] [place] [address] [place] [address] Social History Tobacco Use Types Packs/Day Years Used Date Smoking Tobacco: Never Smokeless Tobacco: Never Alcohol Use Standard Drinks/Week Comments Not Asked 0 (1 standard drink = 0.6 oz pur e alcohol) Comments No Sex and Gender Information Value Date Recorded Sex Assigned at Not on file Legal Sex Female 10:18 AM EST Gender Identity Not on file Sexual Orientation Not on file documented as of this encounter Functional Status * Are you deaf or do you have serious difficulty hearing? Answer Date of Assessment Author No 09/21/2014 11:12 AM EDМарина Rosales * Are you blind or do you have serious difficulty seeing, even when wearing glasses? Answer Date of Assessment Author No 09/21/2014 11:12 AM EDМарина Rosales * Do you have serious difficulty walking or climbing stairs? Answer Date of Assessment Author No 09/21/2014 11:12 AM EDМарина Rosales * Do you have difficulty dressing or bathing? Answer Date of Assessment Author No 09/21/2014 11:12 AM EDМарина Rosales * Because of a physical, mental, or emotional condition, do you have difficulty doing errands alone such as visiting a doctor's office or shopping? Answer Date of Assessment Author No 09/21/2014 11:12 AM Марина Alves documented as of this encounter Mental Status * Because of a physical, mental, or emotional condition, do you have serious difficulty concentrating, remembering, or making decisions? Answer Entry Date Author No 09/21/2014 11:12 AM Марина Alves documented in this encounter Plan of Treatment Not on file documented as of this encounter Visit Diagnoses Not on filedocumented in this encounter Care Teams Iron Handler Relationship Specialty Start Date End Date Toyin Barrios MD [address] [place] [address] PCP - General Family Medicine 03/19/12 documented as of this encounter
--- OUTSIDE RECORDS SUMMARY | 2024-09-22 10:44 | XMS_ITS | Encounter Summary ---
Author Organization [facility] Address [address] [place] [address] Care Team Providers Care Student Services Rep Name Role Phone Toyin Barrios MD Primary Care Provider [phone] Encounter Details Date Type Department Care Team (Late st Contact Info) Description 10/13/2023 Clinisync Result Encounter [facility] External Department Unsolicited Cecille Harp PA [address] [place] [address] [place] [address] Social History Tobacco Use Types Packs/Day Years Used Date Smoking Tobacco: Never Smokeless Tobacco: Never Alcohol Use Standard Drinks/Week Comments Never 0 (1 standard drink = 0.6 oz pur e alcohol) Comments Unknown Sex and Gender Information Value Date Recorded Sex Assigned at Female 05/09/2023 10:54 AM EST Legal Sex Female 7:25 PM EDT Gender Identity Female 05/09/2023 10:54 AM EST Sexual Orientation Straight 05/09/2023 10 :54 AM EST documented as of this encounter Plan of Treatment Upcoming Encounters Date Type Department Care Team (Late st Contact Info) Description 04/26/2025 10:50 AM EST Office Visit [facility] [address] [place] [id number] Yaneth Austin MD [address] [place], [place] [id number] documented as of this encounter Procedures Procedure Name Priority Date/Time Associated Diagnosis Comments XR DEXA AXIAL SKELETON 10/13/2023 11:41 AM EDT documented in this encounter Results * XR DEXA AXIAL SKELETON (10/13/2023 11:41 AM EDT) Anatomical Region Laterality Modality Other 10/13/2023 11:4 1 AM EDT Narrative 10/13/2023 11:44 AM EDT [address] [address] XRay Report Signed Patient: ESSIE POWERS MR#: [id number] : 1955 Acct:[id number] Age/Sex: 68 / F ADM Date: 10/13/23 Loc: [facility] Attending Dr: Cecille Harp Ordering Physician: Cecille Harp Date of Service: 10/13/23 Procedure(s): XR DEXA axial skeleton Accession Number(s): [id number] cc: Cecille Harp; Toyin Barrios M.D. [address] [id number] Patient Name: ESSIE POWERS MRN: [id number] date: 1955 Sex: F Assigned Patient Location: [facility] Current Patient Location: [facility] Accession/Order Number: [id number] Exam Date: 10/13/2023 10:15 Report Date: 10/13/2023 11:41 At the request of: CECILLE HARP Procedure: XR DEXA axial skeleton EXAMINATION: XR DEXA axial skeleton HISTORY: Osteoporosis COMPARISON: DEXA bone densitometry 10/09/2021 TECHNIQUE: Dual-energy X-ray absorptiometry (DXA) was performed. FINDINGS: SPINE ANALYSIS: Average bone mineral density is 1.096 g/cm2. T-score (standard deviation relative to young adult mean): -0.7 . +6.4% change since prior study. HIP ANALYSIS: Lowest bone mineral density is within the left femoral neck, 0.711 g/cm2. T-score (standard deviation relative to young adult mean): -2.3 . 0.0% change since prior study. XR/XR DEXA axial skeleton IMPRESSION: World Health Organization Classification: Osteopenia - Moderate Fracture Risk FRAX: Cannot calculate. Pharmacologic treatment recommendations * No uniform recommendation applies to all patients. Management plans must be individualized. * Consider initiating pharmacologic treatment in postmenopausal women and men >= 50 years of age who have the following: Primary fracture prevention: * T-score <= - 2.5 at the femoral neck, total hip, lumbar spine, 33% radius (some uncertainty with existing data) by DXA. * Low bone mass (osteopenia: T-score between - 1.0 and - 2.5) at the femoral neck or total hip by DXA with a 10-year hip fracture risk >= 3% or a 10-year major osteoporosis-related fracture risk >= 20% (i.e., clinical vertebral, hip, forearm, or proximal humerus) based on the US-adapted FRAXregistered model. Secondary fracture prevention: * Fracture of the hip or vertebra regardless of BMD [4, 5]. * Fracture of proximal humerus, pelvis, or distal forearm in persons with low bone mass (osteopenia: T-score between - 1.0 and - 2.5). The decision to treat should be individualized in persons with a fracture of the proximal humerus, pelvis, or distal forearm who do not have osteopenia or low BMD [12, 13]. Leah MS, Esdras SL, Mil KL, Inna EM, Itzel KG, AJ, Aicha ES. The clinician's guide to prevention and treatment of osteoporosis. Osteoporos Int. 2021;33(10):2613-0433. doi: 10.1007/r80264-738-29115-w. Epub 2021Aug 09. Erratum in: Osteoporos Int. 2021Nov 08;: PMID: 55437025; PMCID: [id number]. Electronically authenticated by: KEYUR ANGELES Date: 10/13/2023 11:41 Dictated By: Keyur [place] M.D. Signed By: 10/13/23 1144 DD/ 1141 TD/TT: Carpenters Helper: Procedure Note Radiology, Radiologist, - 10/13/2023 [place] [address] XRay Report Signed Patient: ESSIE POWERS [facility]#: [id number] : 1955cct:[id number] Age/Sex: 68 / FADM Date: 10/13/23 Loc: RAD Attending Dr: Cecille Harp Ordering Physician: Cecille Harp Date of Service: 10/13/23 Procedure(s): XR DEXA axial skeleton Accession Number(s): [id number] cc: Cecille Harp; Toyin Barrios M.D. [place] [address] Patient Name: ESSIE POWERS MRN: [facility]:[id number] date: 1955 Sex: F Assigned Patient Location: [facility] Current Patient Location: RAD Accession/Order Number: [id number] Exam Date: 10/13/2023 10:15 Report Date: 10/13/2023 11:41 At the request of: CECILLE HARP Procedure: XR DEXA axial skeleton EXAMINATION: XR DEXA axial skeleton HISTORY: Osteoporosis COMPARISON: DEXA bone densitometry 10/09/2021 TECHNIQUE: Dual-energy X-ray absorptiometry (DXA) was performed. FINDINGS: SPINE ANALYSIS: Average bone mineral density is 1.096 g/cm2. T-score (standard deviation relative to young adult mean): -0.7 . +6.4% change since prior study. HIP ANALYSIS: Lowest bone mineral density is within the left femoral neck, 0.711 g/cm2. T-score (standard deviation relative to young adult mean): -2.3 . 0.0% change since prior study. XR/XR DEXA axial skeleton IMPRESSION: World Health Organization Classification: Osteopenia - Moderate FractureRisk FRAX: Cannot calculate. Pharmacologic treatment recommendations * No uniform recommendation applies to all patients. Management plans mustbe individualized. * Consider initiating pharmacologic treatment in postmenopausal women andmen >= 50 years of age who have the following: Primary fracture prevention: * T-score <= - 2.5 at the femoral neck, total hip, lumbar spine, 33%radius (some uncertainty with existing data) by DXA. * Low bone mass (osteopenia: T-score between - 1.0 and - 2.5) at thefemoral neck or total hip by DXA with a 10-year hip fracture risk >= 3% or p05-dpyb major osteoporosis-related fracture risk >= 20% (i.e., clinical vertebral, hip, forearm, or proximal humerus) based on the US-adapted FRAXregisteredmodel. Secondary fracture prevention: * Fracture of the hip or vertebra regardless of BMD [4, 5]. * Fracture of proximal humerus, pelvis, or distal forearm in persons withlow bone mass (osteopenia: T-score between - 1.0 and - 2.5). The decision totreat should be individualized in persons with a fracture of the proximalhumerus, pelvis, or distal forearm who do not have osteopenia or low BMD [12, 13]. Leah MS, Esdras SL, Mil KL, Inna EM, Itzel KG, AJ,Aicha ES. The clinician's guide to prevention and treatment of osteoporosis.Osteoporos Int. 2021;33(10):7995-7392. doi: 10.1007/t18472-444-84393-t. Epub . Erratum in: Osteoporos Int. 2021Nov 08;: PMID: [id number]; PMCID: [id number]. Electronically authenticated by: KEYUR ANGELES Date: 10/13/2023 11:41 Dictated By: Keyur [place] M.D. Signed By:10/13/23 1144 DD/ 1141 TD/TT: Carpenters Helper: Cecille [facility] Final Result documented in this encounter Visit Diagnoses Not on filedocumented in this encounter Care Teams Student Services Rep Relationship Specialty Start Date End Date Toyin Barrios MD PCP - General Family Medicine 07/10/23 documented as of this encounter
--- OUTSIDE RECORDS SUMMARY | 2024-09-22 10:44 | XMS_ITS | Encounter Summary ---
Author Organization [facility] Address [address] [place] [address] Care Team Providers Care Meat Process Worker Name Role Phone Toyin Barrios MD Primary Care Provider [phone] Source Comments In the event this information is protected by the Federal Confidentiality of Alcohol and Drug AbusePatient Records regulations: The Federal rules restrict any use of the information to criminally investigate or prosecute any alcohol or drug abuse patient.[facility] Encounter Details Date Type Department Care Team (Late st Contact Info) Description 02/03/2019 Patient Msg MRI A10 [address] [place] [id number] Provider, [facility] Appointment Cancellation Request Social History Tobacco Use Types Packs/Day Years [...] Author No 09/21/2014 11:12 AM Марина Alves * Are you blind or do you have serious difficulty seeing, even when wearing glasses? Answer Date of Assessment Author No 09/21/2014 11:12 AM Марина Alves * Do you have serious difficulty walking or climbing stairs? Answer Date of Assessment Author No 09/21/2014 11:12 AM Марина Alves * Do you have difficulty dressing or bathing? Answer Date of Assessment Author No 09/21/2014 11:12 AM Марина Alves * Because of a physical, mental, or [...] on filedocumented in this encounter Care Teams Meat Process Worker Relationship Specialty Start Date End Date Toyin Barrios MD [address] [place] [phone] PCP - General Family Medicine 03/19/12 documented as of this encounter
--- OUTSIDE RECORDS SUMMARY | 2024-09-22 10:44 | XMS_ITS | Encounter Summary ---
Author Organization [facility] Address [address] [place] [address] Care Team Providers Care Manufacturing Assistant Name Role Phone Toyin Barrios MD Primary Care Provider [phone] Encounter Details Date Type Department Care Team (Late Contact Info) Description 11/03/2023 Abstract [facility] [address] [facility] [place] [address] Cecille Mccarty PA [address] [facility] [address] [place], [facility] Social History Tobacco Use Types Packs/Day Years [...] Office Visit [facility] [address] [facility] [address] [place] [id number] Yaneth Austin MD [address] [facility] [address] [place] [address] documented as of this encounter Visit Diagnoses Not on filedocumented in this encounter Care Teams Manufacturing Assistant Relationship Specialty Start Date End Date Toyin Barrios MD PCP - General Family Medicine 07/10/23 documented as of this encounter
--- OUTSIDE RECORDS SUMMARY | 2024-09-22 10:44 | XMS_ITS | Clinical Summary ---
Author Organization [facility] Address [address] [place] [address] Care Team Providers Care Territory Manager Name Role Phone Toyin Barrios MD Primary Care Provider [phone] Allergies Active Allergy Reactions Criticality Noted Date Comments Hydromorphone (Bulk) GI Upset 12/22/2014 Latex, Natural Rubber Rash 08/14/2016 Oats, Oat Gum Rash 05/21/2016 Adhesive Tape (Rosins) Unknown 03/13/2012 Hydrocodone-Acetaminophen GI Upset 12/22/2014 Medications multivitamin tablet Take 1 tablet by mouth once daily. 0 03/13/2012 Active pravastatin (PRAVACHOL) 40 mg tablet Take 1 tablet by mouth daily at bedtime. 0 03/13/2012 Active ACETAMINOPHEN (TYLENOL 8 HOUR ORAL) Take 2 tablets by mouth as needed. Active FERROUS SULFATE (IRON ORAL) Take 65 mg by mouth three times a week. 3 days a week Active alpha tocopheryl acetate (VITAMIN E) 400 unit capsule Take 400 Units by mouth once daily. Active VITAMIN B COMPLEX ORAL Take by mouth once daily. Active BIOTIN ORAL Take by mouth. Active A-CYSTEINE/ARG ZN/GLUT/MV-MN (RESTORE-X ORAL) Take by mouth. Active losartan (COZAAR) 25 mg tablet Take 25 mg by mouth once daily. 11/15/2017 Active alendronate (FOSAMAX) 35 mg tablet Take 35 mg by mouth one time a week. 08/12/2019 Active calcium carbonate/vitam in D3 (CALCIUM 600 + D,3, ORAL) 08/11/2019 Active aspirin, enteric coated (ASPIRIN, ENTERIC COATED) 81 mg EC tablet Take 81 mg by mouth once daily. Active cholecalciferol (VITAMIN D-3) 50 mcg (2,000 unit) tablet Take 2,000 Units by mouth once daily. Active ascorbic acid (VITAMIN C ORAL) Take by mouth once daily. Active glucosamine/cho ndroitin/C/Bin (GLUCOSAMINE 1500 COMPLEX ORAL) Take 1,500 mg by mouth once daily. Active PNV no.153/FA/om3/d melgar/epa/fish ( GUMMIES ORAL) Take by mouth once daily. Active Fish Oil-[place]-3 Fatty Acids (FISH OIL) 340-1,000 mg cap Take 1 capsule by mouth once daily. Active niacin 500 mg CR capsule Take 500 mg by mouth daily at bedtime. Active magnesium oxide 400 mg magnesium tab Take 400 mg by mouth daily at bedtime. Active Alpha Lipoic Acid 100 mg cap Take by mouth once daily. Active prasterone, DHEA, (DHEA ORAL) Take by mouth once daily. Active denosumab (PROLIA SUBCUTANEOUS) Inject subcutaneous ly. Active tiZANidine (ZANAFLEX) 4 mg tablet Take 4 mg by mouth daily at bedtime. Active donepezil (ARICEPT) 10 mg tablet Take 10 mg by mouth daily at bedtime. Active Melatonin 5 mg cap Take by mouth. Active Active Problems Problem Noted Date Diagnosed Date Breast cancer 02/19/2019 History of breast cancer 12/19/2016 Malignant neoplasm of left b reast in female, estrogen receptor negative 12/21/2015 Breast CA 03/19/2012 Hyperlipidemia 03/19/2012 Encounters Date Type Department Care Team Description 06/29/2024 10:40 AM EDT Visit (SP) Office Hematology/Oncology [address] [place] [address] [place] [address] Gregg Blum MD Malignant neoplasm of upper-outer quadrant of left breast in female, estrogen receptor negative (HCC) (Primary Dx) 06/29/2024 Travel from Last 3 Months Immunizations Immunization Administration Dates Next Due influenza (aIIV4) vaccine, a ge 65+ yr, quadrivalent, PF (FLUAD QUAD) 01/03/2022 novel influenza (M1Z2-68) vaccine, PF 02/14/2009 pneumococcal polysaccharide (PPV23) vaccine, 23 valent (PNEUMOVAX 23) 11/09/2020 zoster (RZV) vaccine, recombinant (SHINGRIX) ,11/09/2019 Social History Tobacco Use Types Packs/Day Years Used Date Smoking Tobacco: Never Smokeless Tobacco: Never Alcohol Use Standard Drinks/Week Comments Not Currently 0 (1 standard drink = 0.6 oz pur e alcohol) PHQ-2 Answer Date Recorded PHQ-2 score 0 07/01/2023 Area Deprivation Index Answer Date Elmer rded National Score (1-100), lower number is lower ri sk 78 07/01/2023 State Score (1-10), lower number is lower risk 6 07/01/2023 Data from: https://www.neighborhoodatlas.medicine.[facility].edu/. Last address used for calculation [address] 07/01/2023 Comments No Sex and Gender Information Value Date Recorded Sex Assigned at Not on file Legal Sex Female 10:18 AM EST Gender Identity Not on file Sexual Orientation Not on file Last Filed Vital Signs Vital Sign Reading Time Taken Comments Blood Pressure 134/80 06/29/2024 10:28 AM EDT Pulse 84 06/29/2024 10:28 AM EDT Temperature 36.4 C (97.6 F) 06/29/2024 10:28 AM EDT Respiratory Rate 18 06/29/2024 10:2 8 AM EDT Oxygen Saturation 97% 06/29/2024 10: 28 AM EDT Inhaled Oxygen Concentration - - Weight 78.4 kg (172 lb 13.5 oz) 025 10:28 AM EDT Height 162.2 cm (5' 3.86 ) 07/01/2023 2:01 PM ED T Body Mass Index 29.8 07/01/2023 2:01 PM EDT Plan of Treatment Health Maintenance Due Date Last Done Comments Anxiety Screening 06/14/1971 Depression Screening 06/14/1971 Hepatitis C Screening 06/14/1971 DTaP,Tdap,Td Vaccine (1 - Tdap) 1972 CT Colonography 1998 Cologuard (FIT-DNA) 1998 Colonoscopy 1998 Colorectal Cancer Screening 1998 Fecal Occult Blood 1998 Lipid Screening 1998 Sigmoidoscopy 1998 Bone Density Screening 2018 Pneumococcal Vaccine: 50+ (2 of 2 - PCV) 11/09/2021 11/09/2020 Diabetes Screening 02/18/2022 02/18/2019 Advance Directive Discussion 04/14/2024 Covid-19 Vaccine (2023-2 5 season) 2024 01/20/2024, 01/30/2023, 01/23/2022, Additional history exists RSV Vaccine (1 - 1-dose 75+ series) 2028 Mammogram Screening Discontinued 10/28/2018, 8 Shingrix Vaccine Completed 03/07/2020, 11/09/2019 Influenza Vaccine Completed 01/29/2024, , 02/14/2009 Procedures Procedure Name Priority Date/Time Associated Diagnosis Comments BASIC METABOLIC PANEL Routine 02/18/2019 2:14 PM EST History of breast cancer DAMIAN DIAGNOSTIC BILATERAL Routine 10/28/2018 10:55 AM EDT Malignant neoplasm of left breast in female, estrogen receptor negative, unspecified site of breast (HCC) from Last 3 Months or Most Recently Relevant to Health Maintenance Results * (ABNORMAL) BASIC METABOLIC PNL (02/18/2019 2:14 PM EST) Glucose 104(H) 74 - 99 mg/dL 02/18/2019 9:52 PM EST [facility] Comment: The [place] Diabetes Association (ADA) provides guidance for cutoff values for fasting glucose and random glucose. The ADA defines fasting as no caloric intake for at least 8 hours. Fasting plasma glucose results between 100 to 125 mg/dL indicate increased risk for diabetes (prediabetes). Fasting plasma glucose results greater than or equal to 126 mg/dL meet the criteria for diagnosis of diabetes. In the absence of unequivocal hyperglycemia, results should be confirmed by repeat testing. In a patient with classic symptoms of hyperglycemia or hyperglycemic crisis, random plasma glucose results greater than or equal to 200 mg/dL meet the criteria for diagnosis of diabetes. Reference: Standards of Medical Care in Diabetes 2016, [place] Diabetes Association. Diabetes Care. 2016.39(Suppl 1). BUN 17 7 - 21 mg/dL 02/18/2019 9:52 PM EST [facility] Creatinine 0.56(L) 0.58 - 0.96 mg/dL 02/18/2019 9:52 PM [facility] Sodium 138 136 - 144 mmol/L 02/18/2019 9:52 PM [facility] Potassium 4.3 3.7 - 5.1 mmol/L 02/18/2019 9:52 PM [facility] Chloride 99 97 - 105 mmol/L 02/18/2019 9:52 PM [facility] CO2 27 22 - 30 mmol/L 02/18/2019 9:52 PM [facility] Anion Gap 12 9 - 18 mmol/L 02/18/2019 9:52 PM [facility] Calcium 9.5 8.5 - 10.2 mg/dL 02/18/2019 9:52 PM [facility] eGFR- >60 02/18/2019 9:52 PM [facility] eGFR-All Other Races >60 . 02/18/2019 9:52 PM [facility] Comment: eGFR (Estimated GFR) Units of measure: mL/min/1.73 meters squared eGFR is derived from the reexpressed MDRD Study equation using the following parameters: serum creatinine, age, gender and race. The creatinine assay has been calibrated to be traceable to IDMS. An eGFR <60 mL/min/1.73m2 for >3 months is consistent with chronic kidney disease. Refer to KDOQI guidelines for clinical interpretation. In patients with unstable renal function, e.g. those with acute kidney injury, the eGFR may not accurately reflect actual GFR. Blood specimen (specimen) BLOOD SPECIMEN / Unknown 02/18/2019 2:14 PM EST 02/18/2019 2:16 PM EST us Brii Corbett PA-C LABORATORY Final Result [facility] [address] [place] [address] [facility] [address] [place] [address] * DAMIAN DIAGNOSTIC BILAT (10/28/2018 10:55 AM EDT) Anatomical Region Laterality Modality Bilateral Other 10/28/2018 10:5 5 AM EDT Impressions 10/28/2018 12:20 PM EDT IMPRESSION: SUSPICIOUS OF MALIGNANCY The irregular lesion in the left breast most likely is fat necrosis or a post-lumpectomy scar and is at a low suspicion for malignancy. An ultrasound guided biopsy is recommended. LIMITED ULTRASOUND OF LEFT BREAST: 10/28/2018 RESULT: Comparison is made to exams dated: 04/15/2018 breast MRI - [facility] [place], 11/05/2017 mammogram - [facility], 10/13/2018 breast MRI - [facility] [place], 11/05/2017 ultrasound biopsy, 10/23/2017 mammogram, and 11/06/2016 mammogram - [facility]. Real-time ultrasound of the left breast 1-4 o'clock region was performed. Madison scale images of the real-time examination were reviewed. There is an irregular area in the left breast at 1 o'clock posterior depth. This irregular area is of mixed echogenicity. The patient is concerned, the area is progressing and histology to confirm benignity is advised. There also is a benign area in the left breast at 1 o'clock middle depth. This area displays posterior acoustic shadowing. There are calcifications as seen mammographically. There are no solid or cystic masses identified in the left breast at the 3:00 position 4-8 cm from the nipple in the area marked by the patient as pain. There is diffuse skin thickening up to 1.7mm. IMPRESSION: SUSPICIOUS OF MALIGNANCY The irregular area in the left breast at 1 o'clock posterior depth most likely is fat necrosis or the lumpectomy cavity and is at a low suspicion for malignancy. The area in the left breast at 1 o'clock middle depth most likely is fat necrosis and is benign. SUMMARY: Initially when the patient was in the department a biopsy was not considered at this time and monitoring with the MRI in 6 months only was considered. However, following re-evaluation of multiple old studies and the patient's concerns, an additional biopsy at the original lumpectomy site is advisable at this time. The patient was called and explained the procedure and thought process. An order was placed. She was given a number to call to schedule. Essie mane/irma:10/28/2018 12:19:23 Multiple national specialty organizations have released breast cancer screening guidelines for women at average risk for developing breast cancer - guidelines that are based on both evidence and opinion, yet differ on when to start and how often to screen for breast cancer. With representation from Breast Imaging, Internal Medicine, Women's Health, Family Medicine, and Medical/Surgical Oncology, the [facility] has carefully reviewed the data and reached [...] their providers when to stop screening mammograms. Slitter Cut Off Operator(s): RT Telma(R)(M), [facility] OVERALL STUDY BIRADS: 4a Suspicious abnormality - low suspicion for malignancy Field Service Supervisor: Irma Transcribe Date/Time: Oct 28 2018 10:41A Dictated by: ESSIE BARNEY MD This examination was interpreted and the report reviewed and electronically signed by: ESSIE BARNEY MD on Oct 28 2018 12:19PM EST Narrative 10/28/2018 12:20 PM EDT * * *Final Report* * * DATE OF EXAM: Oct 28 2018 10:55AM [facility] 0620 - [facility] DIAGNOSTIC ROD / PROCEDURE REASON: multiple diagnoses * * * * Physician Interpretation * * * * RESULT: #[id number] - [facility] DIAGNOSTIC ROD #[id number] - [facility] BREAST [facility] BILATERAL DIGITAL DIAGNOSTIC MAMMOGRAM WITH CAD: 10/28/2018 HISTORY: Multiple Diagnoses /The patient is also due for her annual bilateral mammogram.//--c/o intermittent shooting pain of left breast//new symptom since last mammogram 04/2017//also states changes in appearance of left breast Multiple Diagnoses /The patient is also due for her annual bilateral mammogram// c/o intermittent shooting pain left breast & appearance of left breast has changed since last mammo. RESULT: TECHNIQUE: The study was acquired using full field digital technology and interpreted from soft copy. Current study was also evaluated with a Computer Aided Detection (CAD). Comparison is made to exams dated: 04/15/2018 breast MRI - [facility], 11/05/2017 mammogram - [facility], 10/13/2018 breast MRI - [facility], 11/05/2017 ultrasound biopsy, 10/23/2017 mammogram, and 11/06/2016 mammogram - [facility]. There are scattered fibroglandular elements in both breasts. There is progression of the fat necrosis involving the entire breast when compared to studies dated 11/06/16. The patient has had multiple biopsies confirming the areas as fat necrosis with 4 core biopsy clips identified. Dystrophic calcifications are associated with areas of fat necrosis . There has been contracture of the breast due to the associated soft tissue structures considered scar tissue. The skin is diffusely thickened but does not enhance. The thickening is most likely due to radiation changes. The mammogram changes correlate with the MRI findings. Ultrasound was performed due to the patient's concern of pain in the lateral breast as well contracture. The left breast has post-operative findings and is increased in size due to lumpectomy and post-operative changes. There is an irregular lesion with coarse dystrophic calcifications in the left breast at 1 o'clock middle depth. No other significant masses, calcifications, or other findings are seen in either breast. Procedure Note Provider, [facility] [place] - 10/28/2018 * * *Final Report* * * DATE OF EXAM: Oct 28 2018 10:55AM [facility] 0620 - [facility] DIAG[facility]IC [facility] / PROCEDURE REASON: multiple diagnoses * * * * Physician Interpretation * * * * RESULT: #[id number] - [facility] DIAG[facility]STIC ROD #[id number] - [facility] US BREAST [facility] BILATERAL DIGITAL DIAGNOSTIC MAMMOGRAM WITH CAD: 10/28/2018 HISTORY: Multiple Diagnoses /The patient is also due for her annual bilateral mammogram.//--c/o intermittent shooting pain of left breast//new symptom since last mammogram 04/2017//also states changes in appearance of left breast Multiple Diagnoses /The patient is also due for her annual bilateral mammogram// c/o intermittent shooting pain left breast & appearance of left breast has changed since last mammo. RESULT: TECHNIQUE: The study was acquired using full field digital technology and interpreted from soft copy. Current study was also evaluated with a Computer Aided Detection (CAD). Comparison is made to exams dated: 04/15/2018 breast MRI - [facility] [place], 11/05/2017 mammogram - [facility], 10/13/2018 breast MRI - [facility] [place], 11/05/2017 ultrasound biopsy, 10/23/2017 mammogram, and 11/06/2016 mammogram - [facility]. There are scattered fibroglandular elements in both breasts. There is progression of the fat necrosis involving the entire breast when compared to studies dated 11/06/16. The patient has had multiple biopsies confirming the areas as fat necrosis with 4 core biopsy clips identified. Dystrophic calcifications are associated with areas of fat necrosis . There has been contracture of the breast due to the associated soft tissue structures considered scar tissue. The skin is diffusely thickened but does not enhance. The thickening is most likely due to radiation changes. The mammogram changes correlate with the MRIfindings. Ultrasound was performed due to the patient's concern of pain in the lateral breast as well contracture. The left breast has post-operative findings and is increased in size due to lumpectomy and post-operative changes. There is an irregular lesion with coarse dystrophic calcifications in the left breast at 1 o'clock middle depth. No other significant masses, calcifications, or other findings are seen in either breast. IMPRESSION IMPRESSION: SUSPICIOUS OF MALIGNANCY The irregular lesion in the left breast most likely is fat necrosis or a post-lumpectomy scar and is at a low suspicion for malignancy. An ultrasound guided biopsy is recommended. LIMITED ULTRASOUND OF LEFT BREAST: 10/28/2018 RESULT: Comparison is made to exams dated: 04/15/2018 [facility], 11/05/2017 mammogram - [facility], 10/13/2018 breast MRI - [facility], 11/05/2017 ultrasound biopsy, 10/23/2017 mammogram, and 11/06/2016 mammogram - [facility]. Real-time ultrasound of the left breast 1-4 o'clock region was performed. Madison scale images of the real-time examination werereviewed. There is an irregular area in the left breast at 1 o'clock posterior depth. This irregular area is of mixed echogenicity. The patient is concerned, the area is progressing and histology to confirm benignity is advised. There also is a benign area in the left breast at 1 o'clock middle depth. This area displays posterior acoustic shadowing. There are calcifications as seen mammographically. There are no solid or cystic masses identified in the left breast at the 3:00 position 4-8 cm from the nipple in the area marked by the patient as pain. There is diffuse skin thickening up to 1.7mm. IMPRESSION: SUSPICIOUS OF MALIGNANCY The irregular area in the left breast at 1 o'clock posterior depth most likely is fat necrosis or the lumpectomy cavity and is at a low suspicion for malignancy. The area in the left breast at 1 o'clock middle depth most likely is fat necrosis and is benign. SUMMARY: Initially when the patient was in the department a biopsy was not considered at this time and monitoring with the MRI in 6 months only was considered. However, following re-evaluation of multiple old studies and the patient's concerns, an additional biopsy at the original lumpectomy site is advisable at this time. The patient was called and explained the procedure and thought process. An order was placed. She was given a number to call to schedule. Essie mane/irma:10/28/2018 12:19:23 Multiple national specialty organizations have released breast cancer screening guidelines for women at average risk for developing breast cancer - guidelines that are based on both evidence and opinion, yet differ on when to start and how often to screen for breast cancer. With representation from Breast Imaging, Internal Medicine, Women's Health, Family Medicine, and Medical/Surgical Oncology, the [facility] has carefully reviewed the data and reached [...] their providers when to stop screening mammograms. Slitter Cut Off Operator(s): Yaneth Gordon RT(R)(M), [facility] OVERALL STUDY BIRADS: 4a Suspicious abnormality - low suspicion for malignancy Field Service Supervisor: Irma Transcribe Date/Time: Oct 28 2018 10:41A Dictated by: ESSIE BARNEY MD This examination was interpreted and the report reviewed and electronically signed by: ESSIE BARNEY MD on Oct 28 2018 12:19PM EST Gregg Blum MD [facility] Final Result from Last 3 Months or Most Recently Relevant to Health Maintenance Insurance MEDICARE [address] Advance Directives Documents on File Type Date Recorded Patient Biostatistics Director Expl anation Advance Directive(s) 05/26/2012 10:48 AM Care Teams Territory Manager Relationship Specialty Start Date End Date Toyin Barrios MD [address] [facility] [place] [address] PCP - General Family Medicine 03/19/12
--- OUTSIDE RECORDS SUMMARY | 2024-09-22 10:44 | XMS_ITS | Patient Health Record ---
Author Organization [facility] Address [address] [place] [address] Care Team Providers Care Iron Handler Name Role Phone Néstor Oliva Unavailable [phone] Allergies Allergen (clinical drug ingredient) Drug/Non Drug Allergy documented on EMR Reaction Allergy Type Onset Date Status Latex Latex (uncoded) Unknown Allergy Acti ve vicodin (uncoded) Unknown Allergy Ac tive hydromorphone Dilaudid Unknown Drug Allergy Act nevin Reason For Referral No Information Medications Medication SIG (Take, Route, Frequency, Duration) Notes Start Date End Date Status Vitamin C Active Vitamin D3 Active pravastatin Active Vitamin B6 Active losartan Active multivitamin Active biotin Active Calcium 600+D Active alendronate Active vitamin E Active Social History Tobacco Use: Social History [...] 10/20/2023 Encounters Encounter Location Date Provider Diagnosis [facility] [address] [place] [address] [address] [place] [address] 10/20/2023 Néstor Oliva Trochanteric bursiti s of [...] bursitis Left hip osteoarthritis Plan Of Treatment No Information Insurance Providers Payer Name Payer Address Payer Phone Subscriber Number Group Number Insured Name Patient Relationship to Insured Coverage Start Date Coverage End [place] [address] [place] [address] [id number] ESSIE POWERS Self - patient is the insured Medical (General) History Medical History History ICD Code Cancer Problems with Anesthesia High Blood Pressure Sleep apnea CPAP Machine: Yes Do you use the CPAP machine? Yes Latex Allergy Drug Allergies Surgical History Surgery Date(Month/Year) Rt big toe arthroscopy, 7 screws inserte d 2017 Rt big toenail removed 2016
--- OUTSIDE RECORDS SUMMARY | 2024-09-22 10:45 | XMS_ITS | Clinical Summary ---
Author Organization [facility] Address [address] [place] [address] Care Team Providers Care Sprue Knocker Name Role Phone Toyin Barrios MD Primary Care Provider [phone] Allergies Active Allergy Reactions Criticality Noted Date Comments Alitraq 10/30/2023 Hydrocodone-Acetaminophen GI intolerance 2014 Hydromorphone GI intolerance 12/22/2014 Latex Rash Low 08/14/2016 Wound Dressing Adhesive Unknown 03/13/2012 Medications alendronate (Fosamax) 35 MG tablet Take 35 mg by mouth every 7 (seven) days Take in the morning with a full glass of water, on an empty stomach, and do not take anything else by mouth or lie down for the next 30 min. Active biotin 5 MG capsule Take 5 mg by mouth in the morning. Active calcium acetate (Phoslo) 667 MG capsule Take 1,334 mg by mouth in the morning and 1,334 mg at noon and 1,334 mg in the evening. Take with meals. Active ferrous fumarate-vitami n C ER (Melissa-Sequeles 65-25) Take 1 tablet by mouth in the morning. Take with meals. Do not crush, chew, or split.. Active losartan (Cozaar) 25 MG tablet Take 25 mg by mouth Daily Active pyridoxine (Vitamin B-6) 25 MG tablet Take 25 mg by mouth in the morning. Active Ascorbic Acid (vitamin C) 1000 MG tablet Take 1,000 mg by mouth in the morning. Active calcitriol (Rocaltrol) 0.25 MCG capsule Take 0.25 mcg by mouth in the morning. Active vitamin E 180 MG (400 UNIT) capsule Take 180 mg by mouth in the morning. Active ALPHA LIPOIC ACID PO Take by mouth Active niacin (Niaspan) 500 MG ER tablet Take 500 mg by mouth at bedtime Do not crush, chew, or split. Active tiZANidine (Zanaflex) 4 MG capsule Take 4 mg by mouth 3 (three) times a day as needed for muscle spasms Active pravastatin (Pravachol) 40 MG tablet Take 40 mg by mouth at bedtime Active Melatonin 1 MG capsule Take by mouth at bedtime Active acetaminophen (Tylenol 8 Hour) 650 MG ER tablet Take 650 mg by mouth every 8 (eight) hours if needed for mild pain Do not crush, chew, or split. Active cholecalciferol (Vitamin D-3) 50 MCG (2000 UT) tablet Take 2,000 Units by mouth in the morning. Active prednisoLONE acetate (Pred-Forte) 1 % ophthalmic suspension 06/23/2023 Active omega-3 (Fish Oil) 1000 MG capsule Take 1 capsule by mouth in the morning. Active Paxlovid, 300/100, 20 x 150 MG & 10 x 100MG tablet therapy pack TAKE 3 TABLETS BY MOUTH TWICE A DAY FOR 5 DAYS 02/04/2023 Active aspirin 81 MG EC tablet Take 81 mg by mouth in the morning. 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 She reports forgetfulness and difficulty with short-term memory at times. She is independent with all activities of daily living, and memory does not significantly impact her day-to-day functional ability. MRI of the brain on 02/25/23 revealed parenchymal volume loss with no other acute abnormalities. MOCA on 02/26/23 was 23/30, and TSH and B12 level on 02/28/23 were within normal limits. The patient underwent neuropsychological evaluation on 04/24/23. 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 Donepezil has been well tolerated, and the patient's memory has been subjectively stable since the prior appointment. PLAN: - I reviewed MCI diagnosis with the patient - Continue donepezil 5 mg PO QHS. I discussed potential dose increase to 10 mg PO QHS. The patient would like to remain on the current dose for now, and I find this reasonable - Sleep hygiene, brain stimulation, physical activity, healthy diet, and compensatory memory techniques discussed - Follow with primary care provider for monitoring/management of blood pressure, cholesterol levels, and blood glucose Long-term use of high-risk medication 10/30/2023 Mild cognitive impairment 10/30/2023 JEFFREY (obstructive sleep apnea) 10/30/2023 Overview (10/30/2023): History of JEFFREY, treated with CPAP. The patient states she wears her CPAP nightly. PLAN: - I encouraged compliance with CPAP while asleep Restless leg Small fiber neuropathy Polyneuropathy Pain in limb Inflammatory and toxic neuropathy Muscle cramps RLS (restless legs syndrome) Family History Medical History Relation Name Comments Alzheimer's disease Father Heart disease Father Hypertension Father Lung cancer Father Mental illness Father Hyperlipidemia Mother Hypertension Mother Cancer Other Hypertension Other Multiple myeloma Neg Hx Relation Name Status Comments Father Mother Other Social History Tobacco Use Types Packs/Day Years Used Date Smoking Tobacco: Never Smokeless Tobacco: Never Tobacco Cessation:Counseling Given: Not Answered Alcohol Use Standard Drinks/Week Comments Never 0 (1 standard drink = 0.6 oz pur e alcohol) Comments Unknown Sex and Gender Information Value Date Recorded Sex Assigned at Female 05/09/2023 10:54 AM EST Legal Sex Female 7:25 PM EDT Gender Identity Female 05/09/2023 10:54 AM EST Sexual Orientation Straight 05/09/2023 10 :54 AM EST Last Filed Vital Signs Vital Sign Reading Time Taken Comments Blood Pressure 124/78 05/12/2024 8:27 AM EST Pulse 67 05/12/2024 8:27 AM EST Temperature - - Respiratory Rate 16 11/03/2023 9:42 AM EDT Oxygen Saturation 97% 05/12/2024 8:27 AM EST Inhaled Oxygen Concentration - - Weight 79.4 kg (175 lb) 05/12/2024 8:27 AM EST Height 162.6 cm (5' 4 ) 12/22/2023 8:42 AM EDT Body Mass Index 30.04 12/22/2023 8:42 AM EDT Plan of Treatment Upcoming Encounters Date Type Department Care Team (Late st Contact Info) Description 04/26/2025 10:50 AM EST Office Visit [facility] [address] [place] [address] Yaneth Austin MD [address] [place] [address] Health Maintenance Due Date Last Done Comments CT Colonography 1955 Colonoscopy 1955 Colorectal Cancer Screening 1955 FIT-DNA 1955 FIT 1955 FOBT 1955 Sigmoidoscopy 1955 Mammogram 11/20/2019 11/19/2018, 10/13, 10/28/2018, Additional history exists Pneumococcal Vaccine: 65+ Years Completed , 11/09/2019 Influenza Vaccine Completed 01/29/2024, , 01/03/2022, Additional history exists Insurance MEDICARE Member Subscriber Plan / Payer (Ef fective 2018-Present) Name:Essie Miller Member ID:[id number] Relation to Subscriber:Self Name:Essie Miller Subscriber ID:[id number] Payer ID:STATE Group ID:Not on file Type:Medicare Address: [place] [id number] UDAY Care Teams Sprue Knocker Relationship Specialty Start Date End Date Toyin Barrios MD PCP - General Family Medicine 07/10/23
== END 2024-09-22 10:42 | disposition home or self-care (01) ==
LOC: WC 10:42
PROVIDERS: PCP Family Medicine; Visit Provider Physician Assistant
DX: M79.671 Pain in right foot (principal); L97.519 Non-pressure chronic ulcer of other part of right foot with unspecified severity; M24.674 Ankylosis, right foot; E11.621 Type 2 diabetes mellitus with foot ulcer; L97.412 Non-pressure chronic ulcer of right heel and midfoot with fat layer exposed
CPT/HCPCS: 11043; 73630

== ENCOUNTER 2024-10-06 14:00 | Outpatient (OUT) | payer MEDICARE, OTHER, SELFPAY ==
--- OUTSIDE RECORDS SUMMARY | 2023-11-24 10:10 | XMS_ITS ---
Author Organization [facility] Address [address] [place] [address] Care Team Providers Care Sterilisation Technician Name Role Phone Néstor Oliva Unavailable [phone] REASON FOR VISIT LEFT HIP RECHECK - CSI 10/19 Medications Medication SIG (Take, Route, Frequency, Duration) Notes Start Date End Date Status Vitamin C Active Vitamin D3 Active biotin Active alendronate Active vitamin E Active pravastatin Active Vitamin B6 Active losartan Active multivitamin Active Calcium 600+D Active Encounters Encounter Location Date Provider Diagnosis [facility] Office [address] [place] [address] [place] [address] 11/24/2023 Néstor Oliva Plan Of Treatment No Information Progress Notes * PARTH POWERS KDOB: (69 yo F)Acc No.[id number]:11/24/2023 Patient: PARTH OGLESBY Provider: Lexie Oliva DO :1955 A ge:68 Y S ex:Female Date:11/24/2023 Address:[address] [place], [place] [id number] Subjective: * Chief Complaints: * 1 . [...] Electronic signature of Kathleen Oliva DO on 10/06/2024 at 02:03 PM EDT Sign off status: Pending * Provider: Lexie Oliva, DO Date: 0 11/24/2023 Generated for Maryann renteria/Chris/Edinson on: 0 10/06/2024 02:03 PM EDT
--- OUTSIDE RECORDS SUMMARY | 2024-10-06 14:05 | XMS_ITS | Encounter Summary ---
Author Organization [facility] Address [address] [place] [address] Care Team Providers Care Pelt Shearer Name Role Phone Toyin Barrios MD Primary Care Provider [phone] Encounter Details Date Type Department Care Team (Late Contact Info) Description 11/03/2023 Abstract [facility] [address] [facility] [place] [address] Cecille Mccarty PA [address] [place], [facility] Social History Tobacco Use Types Packs/Day Years [...] Office Visit [facility] [address] [facility] [address] [place] [phone] Yaneth Austin MD [address] [place] [address] documented as of this encounter Visit Diagnoses Not on filedocumented in this encounter Care Teams Pelt Shearer Relationship Specialty Start Date End Date Toyin Barrios MD PCP - General Family Medicine 07/10/23 documented as of this encounter
--- OUTSIDE RECORDS SUMMARY | 2024-10-06 14:05 | XMS_ITS | Patient Health Record ---
Author Organization [facility] Address [address] [place] [address] Care Team Providers Care Rn Sane Name Role Phone Néstor Oliva Unavailable [phone] Allergies Allergen (clinical drug ingredient) Drug/Non Drug [...] 10/20/2023 Encounters Encounter Location Date Provider Diagnosis [facility] [facility] [address] [place] [address] [place] [address] 10/20/2023 Néstor Oliva Trochanteric bursiti s of [...] Date Coverage End [place] [address] [id number] ESSIE POWERS Self - patient is the [...]
--- OUTSIDE RECORDS SUMMARY | 2024-10-06 14:05 | XMS_ITS | Encounter Summary ---
Author Organization [facility] Address [address] [place] [address] Care Team Providers Care Polysomnographer Name Role Phone Toyin Barrios MD Primary Care Provider [phone] Source Comments In the event this information is protected by the Federal Confidentiality of Alcohol and Drug AbusePatient Records regulations: The Federal rules restrict any use of the information to criminally investigate or prosecute any alcohol or drug abuse patient.[facility] Encounter Details Date Type Department Care Team (Late st Contact Info) Description 11/19/2018 Radiology Radiology [address] [place] [address] [place] [address] [place] [address] Social History Tobacco Use Types [...] on filedocumented in this encounter Care Teams Polysomnographer Relationship Specialty Start Date End Date Toyin Barrios MD [address] [place] [address] PCP - General Family Medicine 03/19/12 documented as of this encounter
--- OUTSIDE RECORDS SUMMARY | 2024-10-06 14:05 | XMS_ITS | Clinical Summary ---
Author Organization [facility] Address [address] [place] [address] Care Team Providers Care Script Worker Name Role Phone Toyin Barrios MD Primary Care Provider [phone] Allergies Active Allergy Reactions Criticality Noted Date [...] Take by mouth once daily. Active Fish Oil-Athens-3 Fatty Acids (FISH OIL) 340-1,000 mg cap [...] negative 12/21/2015 Breast CA 03/19/2012 Hyperlipidemia 03/19/2012 Immunizations Immunization Administration Dates Next Due influenza (aIIV4) vaccine, a ge 65+ yr, quadrivalent, PF (FLUAD QUAD) 01/03/2022 novel influenza (W7J4-27) vaccine, PF 02/14/2009 pneumococcal polysaccharide (PPV23) vaccine, [...] is lower risk 6 07/01/2023 Data from: https://www.neighborhoodatlas.medicine.[facility]/. Last address used for calculation [address] [...] Blood 1998 Lipid Screening 1998 Sigmoidoscopy 1998 Medicare Annual Wellness Visit 06/12/2018 Bone Density Screening 2018 Pneumococcal Vaccine: 50+ (2 of 2 - PCV) 11/09/2021 11/09/2020 Diabetes Screening 02/18/2022 02/18/2019 Advance Directive Discussion 04/14/2024 Covid-19 Vaccine (7 2023-2 5 season) 2024 01/20/2024, 01/30/2023, 01/23/2022, Additional [...] 99 mg/dL 02/18/2019 9:52 PM EST [facility] Comment: The [place] Diabetes Association (ADA) provides guidance for cutoff [...] Standards of Medical Care in Diabetes 2016, [place] Diabetes Association. Diabetes Care. 2016.39(Suppl 1). BUN 17 7 - 21 mg/dL 02/18/2019 9:52 PM EST [facility] Creatinine 0.56(L) 0.58 - 0.96 mg/dL 02/18/2019 9:52 PM [facility] Sodium 138 136 - 144 mmol/L 02/18/2019 9:52 PM EST [facility] Potassium 4.3 3.7 - 5.1 mmol/L 02/18/2019 9:52 PM [facility] Chloride 99 97 - 105 mmol/L 02/18/2019 9:52 PM EST [facility] CO2 27 22 - 30 mmol/L 02/18/2019 9:52 PM EST [facility] Anion Gap 12 9 - 18 mmol/L 02/18/2019 9:52 PM [facility] Calcium 9.5 8.5 - 10.2 mg/dL 02/18/2019 9:52 PM [facility] eGFR- >60 02/18/2019 9:52 PM [facility] eGFR-All Other Races >60 . 02/18/2019 9:52 PM [facility] Comment: eGFR (Estimated GFR) Units of measure: [...] 2:14 PM EST 02/18/2019 2:16 PM EST Brii Corbett PA-C LABORATORY Final Result [facility] [address] [place] [address] [facility] [address] [place] [address] * [facility] DIAGNOSTIC BILAT (10/28/2018 10:55 AM EDT) Anatomical [...] exams dated: 04/15/2018 breast [facility] - [facility], 11/05/2017 mammogram - Replaced By [facility], 10/13/2018 breast MRI - [facility], 11/05/2017 ultrasound biopsy, 10/23/2017 mammogram, and 11/06/2016 mammogram - Replaced By [facility]. Real-time ultrasound of the left breast 1-4 [...] Family Medicine, and Medical/Surgical Oncology, the [facility] has carefully reviewed the data and [...] their providers when to stop screening mammograms. Network Operations Manager(s): RT Telma(R)(M), Replaced By [facility] OVERALL STUDY BIRADS: 4a Suspicious abnormality - low suspicion for malignancy Tax Collector: Irma Transcribe Date/Time: Oct 28 2018 10:41A Dictated by: ESSIE BARNEY MD This examination was interpreted and the report reviewed and electronically signed by: ESSIE BARNEY MD on Oct 28 2018 12:19PM EST Narrative 10/28/2018 12:20 PM EDT * * *Final Report* * * DATE OF EXAM: Oct 28 2018 10:55AM [facility] 0620 - [facility] DIAGNOSTIC ROD / PROCEDURE REASON: multiple diagnoses * * * * Physician Interpretation * * * * RESULT: #[id number] - [facility] DIAGNOSTIC ROD #[id number] - [facility] US BREAST LTD LT BILATERAL DIGITAL DIAGNOSTIC MAMMOGRAM WITH CAD: 10/28/2018 [...] exams dated: 04/15/2018 breast MRI - [facility], 11/05/2017 mammogram - Replaced By [facility], 10/13/2018 breast MRI - [facility], 11/05/2017 ultrasound biopsy, 10/23/2017 mammogram, and 11/06/2016 mammogram - Replaced By [facility]. There are scattered fibroglandular elements in both [...] seen in either breast. Procedure Note Provider, [facility] [place] - 10/28/2018 * * *Final Report* * * DATE OF EXAM: Oct 28 2018 10:55AM W 0620 - [facility] DIAGNOSTIC ROD / PROCEDURE REASON: multiple diagnoses * * * * Physician Interpretation * * * * RESULT: #[id number] - [facility] DIAGNOSTIC ROD #[id number] - [facility] US BREAST LTD LT BILATERAL DIGITAL DIAGNOSTIC MAMMOGRAM WITH CAD: 10/28/2018 [...] exams dated: 04/15/2018 breast MRI - [facility], 11/05/2017 mammogram - Replaced By [facility], 10/13/2018 breast MRI - [facility], 11/05/2017 ultrasound biopsy, 10/23/2017 mammogram, and 11/06/2016 mammogram - Replaced By [facility]. There are scattered fibroglandular elements in both [...] exams dated: 04/15/2018 breast MRI - [facility], 11/05/2017 mammogram - Replaced By [facility], 10/13/2018 breast MRI - [facility], 11/05/2017 ultrasound biopsy, 10/23/2017 mammogram, and 11/06/2016 mammogram - Replaced By [facility]. Real-time ultrasound of the left breast 1-4 [...] Family Medicine, and Medical/Surgical Oncology, the [facility] has carefully reviewed the data and [...] their providers when to stop screening mammograms. Network Operations Manager(s): RT Telma(R)(M), Replaced By [facility] OVERALL STUDY BIRADS: 4a Suspicious abnormality - low suspicion for malignancy Tax Collector: Irma Transcribe Date/Time: Oct 28 2018 10:41A Dictated by: ESSIE BARNEY MD This examination was interpreted and the report reviewed and electronically signed by: ESSIE BARNEY MD on Oct 28 2018 12:19PM EST Gregg Blum MD [facility] Final Result from Last 3 Months or Most Recently Relevant to Health Maintenance Insurance MEDICARE [place] [id number] Advance Directives Documents on File Type Date Recorded Patient Abrading Machine Tender Expl anation Advance Directive(s) 05/26/2012 10:48 AM Care Teams Script Worker Relationship Specialty Start Date End Date Toyin Barrios MD [address] [facility] [place] [address] PCP - General Family Medicine 03/19/12
--- OUTSIDE RECORDS SUMMARY | 2024-10-06 14:05 | XMS_ITS | Encounter Summary ---
Author Organization [facility] Address [address] [facility] [place] [address] Care Team Providers Care Web Graphic Designer Name Role Phone Toyin Barrios MD Primary Care Provider [phone] Encounter Details Date Type Department Care Team (Late st Contact Info) Description 10/13/2023 Clinisync Result Encounter [facility] External Department Unsolicited Cecille Harp PA [address] [place] [address] [place] [address] Social History Tobacco Use Types Packs/Day Years [...] [address] [place] [address] Yaneth Austin MD [address] [place], [place] [id number] documented as of this encounter Procedures Procedure Name Priority Date/Time Associated Diagnosis Comments XR DEXA AXIAL SKELETON 10/13/2023 11:41 AM EDT documented in this encounter Results * XR DEXA AXIAL SKELETON (10/13/2023 11:41 AM EDT) Anatomical Region Laterality Modality Other 10/13/2023 11:4 1 AM EDT Narrative 10/13/2023 11:44 AM EDT [address] [address] XRay Report Signed Patient: ESSIE POWERS MR#: [id number] : 1955 Acct:[id number] Age/Sex: 68 / F ADM Date: 10/13/23 Loc: [facility] Attending Dr: Cecille Harp Ordering Physician: Cecille Harp Date of Service: 10/13/23 Procedure(s): XR DEXA axial skeleton Accession Number(s): [id number] cc: Cecille Harp; Toyin Barrios M.D. [address] [id number] Patient Name: ESSIE POWERS MRN: [id number] date: 1955 Sex: F Assigned Patient Location: [facility] Current Patient Location: [facility] Accession/Order Number: [id number] Exam Date: 10/13/2023 10:15 Report Date: 10/13/2023 [...] prevention and treatment of osteoporosis. Osteoporos Int. 2021;33(10):8963-7144. doi: 10.1007/[id number]-j. Epub 2021Aug 09. Erratum in: Osteoporos Int. 2021Nov 08;: PMID: [id number]; PMCID: [id number]. Electronically authenticated by: KEYUR ANGELES Date: 10/13/2023 11:41 Dictated By: Keyur Angeles M.D. Signed By: 10/13/23 1144 DD/ 1141 TD/TT: Network Project Manager: Procedure Note Radiology, Radiologist, - 10/13/2023 [place] [address] XRay Report Signed Patient: ESSIE POWERS [facility]#: [id number] : 1955cct:[id number] Age/Sex: 68 / FADM Date: 10/13/23 Loc: RAD Attending Dr: Cecille Harp Ordering Physician: Cecille Harp Date of Service: 10/13/23 Procedure(s): XR DEXA axial skeleton Accession Number(s): [id number] cc: Cecille Harp; Toyin Barrios M.D. [place] [address] Patient Name: ESSIE POWERS MRN: [facility]:[id number] date: 1955 Sex: F Assigned Patient Location: [facility] Current Patient Location: RAD Accession/Order Number: [id number] Exam Date: 10/13/2023 10:15 Report Date: 10/13/2023 [...] 10-year hip fracture risk >= 3% or [id number] major osteoporosis-related fracture risk >= 20% (i.e., [...] to prevention and treatment of osteoporosis.Osteoporos Int. 2021;33(10):4955-5205. doi: 10.1007/q32897-076-46760-p. Epub . Erratum in: Osteoporos Int. 2021Nov 08;: PMID: [id number]; PMCID: [id number]. Electronically authenticated by: KEYUR ANGELES Date: 10/13/2023 11:41 Dictated By: Keyur Angeles M.D. Signed By:10/13/23 1144 DD/ 1141 TD/TT: Network Project Manager: Cecille [facility] Final Result documented in this encounter Visit Diagnoses Not on filedocumented in this encounter Care Teams Web Graphic Designer Relationship Specialty Start Date End Date Toyin Barrios MD PCP - General Family Medicine 07/10/23 documented as of this encounter
--- OUTSIDE RECORDS SUMMARY | 2024-10-06 14:05 | XMS_ITS | Encounter Summary ---
Author Organization [facility] Address [address] [place] [address] Care Team Providers Care Hardener Helper Name Role Phone Toyin Barrios MD Primary Care Provider [phone] Source Comments In the event this information is protected by the Federal Confidentiality of Alcohol and Drug AbusePatient Records regulations: The Federal rules restrict any use of the information to criminally investigate or prosecute any alcohol or drug abuse patient.[facility] Encounter Details Date Type Department Care Team (Late st Contact Info) Description 02/03/2019 Patient Msg MRI A10 [address] [place] [id number] Provider, [facility] Appointment Cancellation Request Social History [...] on filedocumented in this encounter Care Teams Hardener Helper Relationship Specialty Start Date End Date Toyin Barrios MD [address] [place] [phone] PCP - General Family Medicine 03/19/12 documented as of this encounter
--- OUTSIDE RECORDS SUMMARY | 2024-10-06 14:05 | XMS_ITS | Clinical Summary ---
Author Organization [facility] Address [address] [place] [address] Care Team Providers Care Rack Worker Name Role Phone Toyin Barrios MD Primary Care Provider [phone] Allergies Active Allergy Reactions Criticality Noted Date [...] NICHOLS [address] [place] [address] Yaneth Austin MD [address] [place] [address] Health Maintenance Due Date Last Done Comments CT Colonography 1955 Colonoscopy 1955 Colorectal Cancer Screening 1955 FIT-DNA 1955 FIT 1955 FOBT 1955 Sigmoidoscopy 1955 Mammogram 11/20/2019 11/19/2018, 10/13, 10/28/2018, Additional history exists Pneumococcal Vaccine: 65+ Years Completed , 11/09/2019 Influenza Vaccine Completed 01/29/2024, , 01/03/2022, Additional history exists Insurance MEDICARE Member Subscriber Plan / Payer (Ef fective 2018-Present) Name:Essie Miller Member ID:[id number] Relation to Subscriber:Self Name:Essie Miller Subscriber ID:[id number] Payer ID:STATE Group ID:Not on file Type:Medicare Address: [place] [id number] Care Teams Rack Worker Relationship Specialty Start Date End Date Toyin Barrios MD PCP - General Family Medicine 07/10/23
== END 2024-10-06 14:01 | disposition home or self-care (01) ==
LOC: WC 14:00
PROVIDERS: PCP Family Medicine; Visit Provider Podiatrist Foot & Ankle Surgery
DX: E11.621 Type 2 diabetes mellitus with foot ulcer (principal); L97.412 Non-pressure chronic ulcer of right heel and midfoot with fat layer exposed
CPT/HCPCS: G0463

== ENCOUNTER 2024-12-03 09:39 | Outpatient (OUT) | payer MEDICARE, OTHER, SELFPAY ==
--- OUTSIDE RECORDS SUMMARY | 2023-11-24 10:10 | XMS_ITS ---
Author Organization [facility] Address [address] [place] [address] Care Team Providers Care Hydraulic Strainer Operator Name Role Phone Néstor Oliva Unavailable [phone] REASON FOR VISIT LEFT HIP RECHECK - CSI 10/19 Medications Medication SIG (Take, Route, Frequency, Duration) Notes Start Date End Date Status Vitamin C Active Vitamin D3 Active biotin Active alendronate Active vitamin E Active pravastatin Active Vitamin B6 Active losartan Active multivitamin Active Calcium 600+D Active Encounters Encounter Location Date Provider Diagnosis [facility] Office [address] [place] [address] [place] [address] 11/24/2023 Néstor Oliva Plan Of Treatment No Information Progress Notes * PARTH POWERS KDOB: (69 yo F)Acc No.[id number]:11/24/2023 Patient: PARTH OGLESBY Provider: Lexie Oliva DO :1955 A ge:68 Y S ex:Female Date:11/24/2023 Address:[address] [place], [place] [address] Subjective: * Chief Complaints: * 1 . [...] Electronic signature of Kathleen Oliva DO on 12/03/2024 at 09:44 AM EDT Sign off status: Pending * Provider: Lexie Oliva, DO Date: 0 11/24/2023 Generated for Maryann renteria/Chris/Edinson on: 0 12/03/2024 09:44 AM EDT
--- OUTSIDE RECORDS SUMMARY | 2024-12-03 09:44 | XMS_ITS | Encounter Summary ---
Author Organization [facility] Address [address] [place] [address] Care Team Providers Care Community Education Specialist Name Role Phone Toyin Barrios MD Primary Care Provider [phone] Encounter Details Date Type Department Care Team (Late st Contact Info) Description 11/03/2023 Abstract [facility] [address] [place] [address] Cecille Mccarty PA [address] [place], [facility] Social History Tobacco Use Types Packs/Day Years [...] Description 04/26/2025 10:50 AM EST Office Visit [facility] [address] [place] [address] Yaneth Austin MD [address] [place] [address] documented as of this encounter Visit Diagnoses Not on filedocumented in this encounter Care Teams Community Education Specialist Relationship Specialty Start Date End Date Toyin Barrios MD PCP - General Family Medicine 07/10/23 documented as of this encounter
--- OUTSIDE RECORDS SUMMARY | 2024-12-03 09:44 | XMS_ITS | Encounter Summary ---
Author Organization [facility] Address [address] [place] [address] Care Team Providers Care Plumbing Manager Name Role Phone Toyin Barrios MD Primary Care Provider [phone] Source Comments In the event this information is protected by the Federal Confidentiality of Alcohol and Drug AbusePatient Records regulations: The Federal rules restrict any use of the information to criminally investigate or prosecute any alcohol or drug abuse patient.[facility] Encounter Details Date Type Department Care Team (Late st Contact Info) Description 02/03/2019 Patient Msg MRI A10 [address] [place] [id number] Provider, [facility] Appointment Cancellation Request Social History [...] on filedocumented in this encounter Care Teams Plumbing Manager Relationship Specialty Start Date End Date Toyin Barrios MD [address] [place] [phone] PCP - General Family Medicine 03/19/12 documented as of this encounter
--- OUTSIDE RECORDS SUMMARY | 2024-12-03 09:44 | XMS_ITS | Clinical Summary ---
Author Organization [facility] Address [address] [place] [address] Care Team Providers Care Yarn Finisher Name Role Phone Toyin Barrios MD Primary Care Provider [phone] Allergies Active Allergy Reactions Criticality Noted Date [...] mouth at bedtime 90 tablet 2 03/02/2024 Active Active Problems Problem Noted Date Diagnosed [...] Dermatology [address] [place] [phone] Yaneth Austin MD [address] [place] [address] Health Maintenance Due Date Last Done Comments CT Colonography 1955 Colonoscopy 1955 Colorectal Cancer Screening 1955 FIT-DNA 1955 FIT 1955 FOBT 1955 Sigmoidoscopy 1955 Mammogram 11/20/2019 11/19/2018, 10/13, 10/28/2018, Additional history exists Influenza Vaccine (#1) 2024 4, 01/21/2023, 01/03/2022, Additional history exists Pneumococcal Vaccine: 65+ Years Completed 1, 11/09/[address] [facility] Care Teams Yarn Finisher Relationship Specialty Start Date End Date Toyin Barrios MD PCP - General Family Medicine 07/10/23
--- OUTSIDE RECORDS SUMMARY | 2024-12-03 09:44 | XMS_ITS | Clinical Summary ---
Author Organization [facility] Address [address] [place] [address] Care Team Providers Care Last Cleaner Name Role Phone Toyin Barrios MD Primary Care Provider [phone] Allergies Active Allergy Reactions Criticality Noted Date [...] Take by mouth once daily. Active Fish Oil-[place]-3 Fatty Acids (FISH OIL) 340-1,000 mg cap [...] quadrivalent, PF (FLUAD QUAD) 01/03/2022 novel influenza (X0W8-65) vaccine, PF 02/14/2009 pneumococcal polysaccharide (PPV23) vaccine, [...] is lower risk 6 07/01/2023 Data from: https://www.neighborhoodatlas.medicine.[facility]/. Last address used for calculation [address] [...] Screening 02/18/2022 02/18/2019 Advance Directive Discussion 04/14/2024 Influenza Vaccine (#1) 2024 , 01/03/2022, 02/14/2009 RSV Vaccine (1 - 1-dose 75+ series) 2028 Mammogram Screening Discontinued 10/28/2018, 8 Shingrix Vaccine Completed 03/07/2020, 11/09/2019 Procedures Procedure Name Priority Date/Time Associated Diagnosis Comments BASIC METABOLIC PANEL Routine 02/18/2019 2:14 PM EST History of breast cancer DMAIAN DIAGNOSTIC BILATERAL Routine 10/28/2018 10:55 AM EDT Malignant neoplasm of left breast in female, estrogen receptor negative, unspecified site of breast (HCC) from Last 3 Months or Most Recently Relevant to Health Maintenance Results * (ABNORMAL) BASIC METABOLIC PNL (02/18/2019 2:14 PM EST) Glucose 104(H) 74 - 99 mg/dL 02/18/2019 9:52 PM EST [facility] [employer] Comment: The [place] Diabetes Association (ADA) provides guidance for cutoff [...] Standards of Medical Care in Diabetes 2016, [place] [employer] Association. Diabetes Care. 2016.39(Suppl 1). BUN 17 7 - 21 mg/dL 02/18/2019 9:52 PM EST [facility] Creatinine 0.56(L) 0.58 - 0.96 mg/dL 02/18/2019 9:52 PM [facility] Sodium 138 136 - 144 mmol/L 02/18/2019 9[facility] Potassium 4.3 3.7 - 5.1 mmol/L 02/18/2019 9:52 PM [facility] Chloride 99 97 - 105 mmol/L 02/18/2019 9:52 PM [facility] CO2 27 22 - 30 mmol/L 02/18/2019 9:52 PM [facility] Anion Gap 12 9 - 18 mmol/L 02/18/2019 9:52 PM EST [facility] Calcium 9.5 8.5 - 10.2 mg/dL 02/18/2019 9:52 PM [facility] eGFR- >60 02/18/2019 9:52 PM [facility] eGFR-All Other Races >60 . 02/18/2019 9:52 PM EST [facility] Comment: eGFR (Estimated GFR) Units of measure: [...] us Brii Corbett PA-C LABORATORY Final Result [facility] [address] [facility] [place] [address] [facility] [address] [place] [address] * [facility] DIAGNOSTIC BILAT (10/28/2018 10:55 AM EDT) Anatomical [...] MRI - [facility], 11/05/2017 mammogram - [facility], 10/13/2018 breast MRI - [facility], 11/05/2017 ultrasound biopsy, 10/23/2017 mammogram, and 11/06/2016 mammogram - [facility]. Real-time ultrasound of the left [...] Health, Family Medicine, and Medical/Surgical Oncology, the [facility] has carefully reviewed the data [...] their providers when to stop screening mammograms. Track Worker(s): Yaneth Gordon RT(R)(M), [facility] OVERALL STUDY BIRADS: 4a Suspicious abnormality - low suspicion for malignancy Inspector Balance Bridge: Irma Transcribe Date/Time: Oct 28 2018 10:41A Dictated by: ESSIE BARNEY MD This examination was interpreted and the report reviewed and electronically signed by: ESSIE BARNEY MD on Oct 28 2018 12:19PM EST Narrative 10/28/2018 12:20 PM EDT * * *Final Report* * * DATE OF EXAM: Oct 28 2018 10:55AM [facility] 0620 - [facility] DIAGNOSTIC ROD / PROCEDURE REASON: multiple diagnoses * * * * Physician Interpretation * * * * RESULT: #[id number] - [facility] DIAGNOSTIC ROD #[id number] - [facility] US BREAST LTD LT BILATERAL DIGITAL DIAGNOSTIC [...] exams dated: 04/15/2018 breast MRI - [facility], 11/05/2017 mammogram - [facility], 10/13/2018 breast MRI - [facility], 11/05/2017 ultrasound biopsy, 10/23/2017 mammogram, and 11/06/2016 mammogram - [facility]. There are scattered fibroglandular elements [...] seen in either breast. Procedure Note Provider, [facility] [place] - 10/28/2018 * * *Final Report* * * DATE OF EXAM: Oct 28 2018 10:55AM W 0620 - [facility] DIAGNOSTIC ROD / PROCEDURE REASON: multiple diagnoses * * * * Physician Interpretation * * * * RESULT: #[id number] - [facility] DIAGNOSTIC ROD #[id number] - [facility] US BREAST LTD LT BILATERAL DIGITAL DIAGNOSTIC [...] exams dated: 04/15/2018 breast MRI - [facility], 11/05/2017 mammogram - [facility], 10/13/2018 breast MRI - [facility], 11/05/2017 ultrasound biopsy, 10/23/2017 mammogram, and 11/06/2016 mammogram - [facility]. There are scattered fibroglandular elements [...] to exams dated: 04/15/2018 breast MRI - [facility] [place], 11/05/2017 mammogram - [facility], 10/13/2018 breast MRI - [facility], 11/05/2017 ultrasound biopsy, 10/23/2017 mammogram, and 11/06/2016 mammogram - [facility]. Real-time ultrasound of the left [...] Health, Family Medicine, and Medical/Surgical Oncology, the [facility] has carefully reviewed the data [...] their providers when to stop screening mammograms. Track Worker(s): RT Telma(R)(M), [facility] OVERALL STUDY BIRADS: 4a Suspicious abnormality - low suspicion for malignancy Inspector Balance Bridge: Irma Transcribe Date/Time: Oct 28 2018 10:41A Dictated by: ESSIE BARNEY MD This examination was interpreted and the report reviewed and electronically signed by: ESSIE BARNEY MD on Oct 28 2018 12:19PM EST Gregg Blum MD [facility] Final Re sult from Last 3 Months or Most Recently Relevant to Health Maintenance Insurance MEDICARE [facility] Advance Directives Documents on File Type Date Recorded Patient Senior Controls Technician Expl anation Advance Directive(s) 05/26/2012 10:48 AM Care Teams Last Cleaner Relationship Specialty Start Date End Date Toyin Barrios MD [address] [facility] [place] [address] PCP - General Family Medicine 03/19/12
--- OUTSIDE RECORDS SUMMARY | 2024-12-03 09:44 | XMS_ITS | Encounter Summary ---
Author Organization [facility] Address [address] [place] [address] Care Team Providers Care Fuel Cell Technician Name Role Phone Toyin Barrios MD Primary Care Provider [phone] Source Comments In the event this information is protected by the Federal Confidentiality of Alcohol and Drug AbusePatient Records regulations: The Federal rules restrict any use of the information to criminally investigate or prosecute any alcohol or drug abuse patient.[facility] Encounter Details Date Type Department Care Team (Late st Contact Info) Description 11/19/2018 Radiology Radiology [address] [place] [address] [place] [address] [address] [facility] [place] [address] Social History Tobacco Use Types [...] on filedocumented in this encounter Care Teams Fuel Cell Technician Relationship Specialty Start Date End Date Toyin Barrios MD [address] [place] [address] PCP - General Family Medicine 03/19/12 documented as of this encounter
--- OUTSIDE RECORDS SUMMARY | 2024-12-03 09:44 | XMS_ITS | Encounter Summary ---
Author Organization [facility] Address [address] [address] Care Team Providers Care Sample Paster Name Role Phone Toyin Barrios MD Primary Care Provider [phone] Encounter Details Date Type Department Care Team (Late st Contact Info) Description 10/13/2023 Clinisync Result Encounter [facility] External Department Unsolicited Cecille Harp PA [address] [place] [address] [place] [address] Social History Tobacco Use Types Packs/Day Years [...] 04/26/2025 10:50 AM EST Office Visit [facility] [address] [place] [phone] Yaneth Austin MD [address] [place] [address] documented as of this encounter Procedures Procedure Name Priority Date/Time Associated Diagnosis Comments XR DEXA AXIAL SKELETON 10/13/2023 11:41 AM EDT documented in this encounter Results * XR DEXA AXIAL SKELETON (10/13/2023 11:41 AM EDT) Anatomical Region Laterality Modality Other 10/13/2023 11:4 1 AM EDT Narrative 10/13/2023 11:44 [place] [address] XRay Report Signed Patient: ESSIE POWERS MR#: [id number] : 1955 Acct:[id number] Age/Sex: 68 / F ADM Date: 10/13/23 Loc: [facility] Attending Dr: Cecille Harp Ordering Physician: Cecille Harp Date of Service: 10/13/23 Procedure(s): XR DEXA axial skeleton Accession Number(s): [id number] cc: Cecille Harp; Toyin Barrios M.D. [place] [id number] Patient Name: ESSIE POWERS MRN: [id number] date: 1955 Sex: F Assigned Patient Location: [facility] Current Patient Location: [facility] Accession/Order Number: [id number] Exam Date: 10/13/2023 10:15 Report Date: 10/13/2023 [...] prevention and treatment of osteoporosis. Osteoporos Int. 2021;33(10):4221-6287. doi: 10.1007/d87639-500-50292-l. Epub 2021Aug 09. Erratum in: Osteoporos Int. 2021Nov 08;: PMID: [id number]; PMCID: [id number]. Electronically authenticated by: KEYUR ANGELES Date: 10/13/2023 11:41 Dictated By: Keyur Angeles M.D. Signed By: 10/13/23 1144 DD/ 1141 TD/TT: Test Engineer Nuclear Equipment: Procedure Note Radiology, Radiologist, - 10/13/2023 [place] [address] XRay Report Signed Patient: ESSIE POWERS [facility]#: [id number] : 1955cct:[id number] Age/Sex: 68 / FADM Date: 10/13/23 Loc: RAD Attending Dr: Cecille Harp Ordering Physician: Cecille Harp Date of Service: 10/13/23 Procedure(s): XR DEXA axial skeleton Accession Number(s): [id number] cc: Cecille Harp; Toyin Barrios M.D. [place] [address] Patient Name: ESSIE POWERS MRN: [facility]:[id number] date: 1955 Sex: F Assigned Patient Location: [facility] Current Patient Location: RAD Accession/Order Number: [id number] Exam Date: 10/13/2023 10:15 Report Date: 10/13/2023 [...] 10-year hip fracture risk >= 3% or u97-aeca major osteoporosis-related fracture risk >= 20% (i.e., [...] to prevention and treatment of osteoporosis.Osteoporos Int. 2021;33(10):7259-9847. doi: 10.1007/l67400-722-83364-a. Epub . Erratum in: Osteoporos Int. 2021Nov 08;: PMID: [id number]; PMCID: [id number]. Electronically authenticated by: KEYUR ANGELES Date: 10/13/2023 11:41 Dictated By: Keyur Angeles M.D. Signed By:10/13/23 1144 DD/ 1141 TD/TT: Test Engineer Nuclear Equipment: Cecille [facility] Final Result documented in this encounter Visit Diagnoses Not on filedocumented in this encounter Care Teams Sample Paster Relationship Specialty Start Date End Date Toyin Barrios MD PCP - General Family Medicine 07/10/23 documented as of this encounter
--- OUTSIDE RECORDS SUMMARY | 2024-12-03 09:44 | XMS_ITS | Patient Health Record ---
Author Organization [facility] Address [address] [place] [address] Care Team Providers Care Tumbler Drier Operator Name Role Phone Néstor Oliva Unavailable [phone] Allergies Allergen (clinical drug ingredient) Drug/Non Drug [...] (Standard) Question Answer Notes Tobacco use: Nonsmoker Plan Of Treatment No Information Insurance Providers Payer Name Payer Address Payer Phone Subscriber Number Group Number Insured Name Patient Relationship to Insured Coverage Start Date Coverage [place] [address] [place] [address] [id number] [employer] Self - patient is the insured Medical (General) History Medical History History ICD Code Cancer Problems with Anesthesia High Blood Pressure Sleep apnea CPAP Machine: Yes Do you use the CPAP machine? Yes Latex Allergy Drug Allergies Surgical History Surgery Date(Month/Year) Rt big toe arthroscopy, 7 screws inserte d 2017 Rt big toenail removed 2016
--- OUTSIDE RECORDS SUMMARY | 2024-12-03 09:48 | XMS_ITS | CCD ---
Author Organization [facility]iniSyne Care Team Providers Care Quality Assurance Test Program Manager Name Role Phone Keith Gaspar Unavailable Elder Vigil Unavailable MD David Bolanos Primary Care Provider MD Regina Biggs Attending Provider David Bolanos MD Primary Care Provider [phone] David Bolanos Unavailable SAV ., DR EM Hernandez Attending Unavailable LUIS MIGUEL, DR DAVID Bravo Consulting Unavailable LUIS MIGUEL, DR DAVID Bravo Primary Care Unavailable SAV ., DR EM Hernandez Admitting Unavailable SERNA ., DR EM Hernandez Consulting Unavailable EUNICE [...] SERNA ., DR EM Hernandez Consulting Unavailable SAV [...] Hernandez Attending Unavailable SERNA ., DR EM Henrandez Admitting Unavailable BOLANOS, DR DAVID Bravo Primary Care Unavailable SERNA ., DR EM Hernandez Consulting Unavailable David Bolanos MD Primary Care Provider HILL, Sandeep R Attending Unavailable Orzech, Za X Attending Unavailable HILL, Sandeep R Attending Unavailable Orzech, Za X Attending Unavailable Orzech, Za X Attending Unavailable HILL, Sandeep R Attending Unavailable HILL, Sandeep R Attending Unavailable HILL, Sandeep R Admitting Unavailable HILL, Sandeep R Referring Unavailable RG, ANAHI Attending Unavailable LOYD, YINKA Attending Unavailable LOYD, YINKA Attending Unavailable RG, ANAHI Attending Unavailable RG, ANAHI Attending Unavailable JELENA AUSTIN Attending Unavailable David Bolanos MD Primary Care Provider GREGG BLUM Attending Unavailable SELF Referring Unavailable DAVID BOLANOS Primary Care Unavailable David Bolanos MD Primary Care Provider Anahi Bowers Attending Provider David Bolanos Primary Care Unavailable Anahi Rg Attending Unavailable Anahi Rg Admitting Unavailable David Bolanos MD Primary Care Provider David Bolanos MD Attending Provider Arcenio BANDA-Anahi QUINONES Attending Provider Allergies Allergy Classification Reported Allergen(s) Allergy Type Date of Onset Reaction(s) Facility (15 sources) Acetaminophen / HYDROcodone; Translations: [Vicodin] Drug Allergy 03-27-20 15 Unknown [facility] Repository (20 sources) HYDROmorphone; Translations: [HYDROmorphone] Drug Allergy 12-23-19 15 GI intolerance [facility] Other (17 sources) Morphine Drug Allergy 12-01-19 24 Unknown, [facility] (13 sources) Acetaminophen / HYDROcodone; Translations: [HYDROCODONE-ACET AMINOPHEN] Drug Allergy 12-23-19 15 GI Upset, GI intolerance [facility] (5 sources) Adhesive Tape; Translations: [ADHESIVE TAPE (ROSINS)] Allergy to substance 03-13-20 12 Unknown [facility] (5 sources) HYDROmorphone; Translations: [HYDROMORPHONE (BULK)] Drug Allergy 12-23-19 15 GI Upset [facility] (13 sources) Latex; Translations: [LATEX, NATURAL RUBBER] Drug Allergy 08-15-19 17 [facility] (5 sources) Oats, Oat Gum; Translations: [OATS, OAT GUM] Food Allergy 05-21-19 17 [facility] (12 sources) Adhesive Tape; Translations: [Tape] Drug allergy Unknown [facility] Repository (16 sources) Latex; Translations: [Latex] Drug allergy 12-01-19 24 Unknown, [facility] Repository (2 sources) HYDROmorphone; Translations: [Dilaudid] Drug Allergy 03-27-20 15 [facility] Rep[facility] (1 source) Latex Drug allergy (disorder) 03-27-20 15 [facility] (1 source) Morphine Drug Allergy [facility] (2 sources) Nimorazole; Translations: [Oats] Drug Allergy 04-14-19 17 [facility] (1 source) Misc-Other; Translations: [Misc-Other] Propensity to adverse reactions (disorder) 03-27-20 15 [facility] (7 sources) Vicodin *ANALGESICS - OPIOID* Propensity to adverse reactions 04-14-19 19 Unknown [facility] Other (7 sources) Morphine Sulfate (Concentrate) *ANALGESICS - OPIOI Propensity to adverse reactions Unknown [facility] Other (2 sources) Allergies Reconciled Propensity to adverse reactions Unknown [facility] Other (2 sources) patient allergy list reviewed by nurse or physicia Propensity to adverse reactions 07-15-19 14 Comment:Done [facility] Other (8 sources) Alitraq Propensity to adverse reactions 10-30-19 24 [facility] (8 sources) Wound Dressing Adhesive Drug Allergy 03-13-20 12 Unknown [facility] (5 sources) Acetaminophen; Translations: [acetaminophen] Drug Allergy 12-01-19 24 [facility] Comment on above: Onset Date: 04/14/19 19 (5 sources) Adhesive Tape; Translations: [adhesive tape] Allergy to substance 12-01-19 [facility] (5 sources) HYDROcodone; Translations: [hydrocodone] Drug Allergy 12-01-19 [facility] Comment on above: Onset Date: 04/14/19 19 (1 source) HYDROmorphone Drug Allergy 12-01-19 24 [facility] Repository (1 source) Latex Drug allergy (disorder) 12-01-19 24 [facility] Repository (1 source) Morphine Drug Allergy 12-01-19 [facility] (1 source) Doxycycline Drug Allergy 12-02-19 25 Itching [facility] Medications Current Medications Medication Drug Class(es) Dates Sig (Normalized) Sig (Original) A-CYSTEINE/ARG ZN/GLUT/MV-MN (RESTORE-X ORAL) (4 sources) A-CYSTEINE/ARG ZN/GLUT/MV-MN (RESTORE-X ORAL) Take by mouth. Active A-CYSTEINE/ARG Z N/GLUT/MV-MN (RESTORE-X ORAL) Take by mouth. 0 Active Comment on above: Take by mouth. Acetaminophen (20 sources) ACETAMINOPHEN (T YLENOL 8 HOUR ORAL) Take 2 tablets by mouth as needed. Active take 1 tablet by risa th every eight hours as needed for pain acetaminophen (Tylenol 8 Hour) 650 MG ER tablet Take 650 mg by mouth every 8 (eight) hours if needed for mild pain Do not crush, chew, or split. Active take 1 tablet by risa th every six hours as needed Acetaminophen 500 MG 1 tablet as needed Orally every 6 hrs Not-Taking ACETAMINOPHEN (T YLENOL 8 HOUR ORAL) Take 2 tablets by mouth as needed. 0 Active Comment on above: Take 2 tablets by mo [facility] as needed. ALPHA LIPOIC ACID PO (8 sources) ALPHA LIPOIC ACI D PO Take by mouth Active Ascorbic Acid (12 sources) Vitamin C ascorbic acid (V ITAMIN C ORAL) Take by mouth once daily. Active take 1 tablet by mouth in the mo [facility] Ascorbic Acid (vitamin C) 1000 MG tablet Take 1,000 mg by mouth in the morning. Active ascorbic acid (V ITAMIN C ORAL) Take by mouth once daily. 0 Active Comment on above: Take by mouth once d aily. Biotin (20 sources) Start: 08-18-2023 take 1 tablet by mouth once daily Biotin 300 mcg tablet Active 1 TAB PO Daily August 18, 2023 12:00am [employer] tablet Orally Once a day; Note: Source Status: Taking; Provider: Luis Miguel Deal ( ) Complies with drug therapy Start: 08-18-2023 take 1 tablet by risa once daily Biotin 300 mcg tablet Active 1 TAB PO Daily August 18, 2023 12:00am [employer] tablet Orally Once a day; Note: Source Status: Taking; Provider: Luis Miguel Deal ( ) BIOTIN ORAL Take by mouth. Active take 1 capsule by [facility] in the morning biotin 5 MG capsule Take 5 mg by mouth in the morning. Active take 1 tablet by risa every twenty-four hours Biotin 300 MCG 1 tablet Orally Once a day Active BIOTIN ORAL Take by mouth. 0 Active take 1 tablet by risa th once daily Biotin 300 MCG 1 tablet Orally Once a day Active Comment on above: Take by mouth. calcitriol 0.57420 mg oral capsule (8 sources) Vitamin D3 Analog take 1 capsule by mouth in the morning calcitriol (Rocaltrol) 0.25 MCG capsule Take 0.25 mcg by mouth in the morning. Active calcium acetate 667 mg oral capsule (8 sources) calcium acetate (Phoslo) 667 MG capsule Take 1,334 mg by mouth in the morning and 1,334 mg at noon and 1,334 mg in the evening. Take with meals. Active calcium carbonate 1500 mg oral tablet (20 sources) Start: 08-18-2023 take 1 tablet by mouth twice daily at mealtime Calcium Carbonate 600 mg calcium (1,500 mg) tablet Active 1 TAB PO Twice daily August 18, 2023 12:00am [employer] tablet with meals Orally Twice a day; Note: Source Status: Taking; Provider: Luis Miguel Deal ( ) Complies with drug therapy take 1 tablet by mouth every twe lve hours Calcium 600 MG 1 tablet with meals Orally Twice a day Active take 1 tablet by mouth every twe lve hours Calcium 500 MG 1 tablet with meals Orally Twice a day Active Calcium Carbonate / vitamin D3 (4 sources) Start: 08-11-2019 calcium carbon ate/vitamin D3 (CALCIUM 600 + D,3, ORAL) 08/11/2019 Active Start: 08-11-2019 calcium carbon ate/vitamin D3 (CALCIUM 600 + D,3, ORAL) cholecalciferol 1.25 mg oral capsule (16 sources) Vitamin D Start: 08-18-2023 take 1 capsule by mouth every month Cholecalciferol (Vitamin D3) 1,250 mcg (50,000 unit) capsule Active 1250 MCG PO every month August 18, 2023 12:00am Complies with drug therapy take 1 tablet by mouth once leeanna y cholecalciferol (VITAMIN D-3) 50 mcg (2,000 unit) tablet Take 2,000 Units by mouth once daily. Active take 1 tablet by mouth in the mo rning cholecalciferol (Vitamin D-3) 50 MCG (2000 UT) tablet Take 2,000 Units by mouth in the morning. Active Comment on above: Take 2,000 Units by mouth once daily. 1 ml denosumab 60 mg/ml prefilled syringe (5 sources) RANK Ligand Inhibitor Start: 12-01-2023 Denosumab (Prolia) 60 mg/mL syringe Active 60 MG SUBCUT EVERY 6 MONTHS December 01, 2023 12:00am Complies with drug therapy denosumab (PROLI A SUBCUTANEOUS) Inject subcutaneously. Active dexamethasone phosphate 4 mg/ml injectable solution (13 sources) Corticosteroid Start: 03-20-2021 Dexamethasone Sodium Phosphate 4 MG/ML 1.5 - 2 ML's as directed with physical therapy Injection up to three times per week Mar, Active Start: 03-20-2021 dexAMETHasone Sodium Phosphate 4 MG/ML 1.5 - 2 ML's as directed with physical therapy Injection up to three times per week Mar, Not-Taking docosahexaenoic acid 120 mg / eicosapentaenoic acid 180 mg oral capsule (8 sources) take 1 capsule by mouth in the morning omega-3 (Fish Oil) 1000 MG capsule Take 1 capsule by mouth in the morning. Active Bland 8-Tfm-Nbt-Fish Oil (4 sources) Start: 08-18-2023 take 300-1000 mg by mouth once daily Bland 3-Oir-Vjg-Fish Oil (Fish Oil) 300-1,000 mg capsule Active 1 CAP PO Daily August 18, 2023 12:00am Complies with drug therapy Start: 08-18-2023 take 300-1000 mg by mouth once daily Bland 9-Bdf-Soq-Fish Oil (Fish Oil) 300-1,000 mg capsule Active 1 CAP PO Daily August 18, 2023 12:00am donepezil hydrochloride 10 mg oral tablet (20 sources) Start: 12-01-2024 take 1 tablet by mouth once daily Donepezil (Aricept) 10 mg tablet Active 10 MG PO Daily December 01, 2024 12:00am Complies with drug therapy Start: 12-01-2023 End: 12-01-2024 take 1 tablet by mouth once daily at bedtime Donepezil (Aricept) 5 mg tablet Discontinued 5 MG PO Daily at bedtime December 01, 2023 12:00am December 01, 2024 10:20am Start: 11-03-2023 End: 11-27-2024 take 1 tablet by mouth once daily at bedtime Donepezil (Aricept) 10 mg tablet Discontinued 10 MG PO Daily at bedtime December 01, 2023 12:00am December 01, 2023 9:58am ferrous fumarate-vitamin C ER (Melissa-Sequeles 65-25) (8 sources) take 1 tablet by mouth at mealtime ferrous fumarate-vitamin C ER (Melissa-Sequeles 65-25) Take 1 tablet by mouth in the morning. Take with meals. Do not crush, chew, or split.. Active ferrous sulfate 325 mg oral tablet (19 sources) Start: 08-18-2023 take 1 tablet by mouth once daily Ferrous Sulfate (Feosol) 325 mg (65 mg iron) tablet Active 325 MG PO Daily August 18, 2023 12:00am Complies with drug therapy take 65 mg by mouth three times weekly FERROUS SULFATE (IRON ORAL) Take 65 mg by mouth three times a week. 3 days a week Active take 1 tablet by risa th every twenty-four hours Iron 325 (65 Fe) MG 1 tablet Orally Once a day Active take 65 mg by mouth three times weekly FERROUS SULFATE (IRON ORAL) Take 65 mg by mouth three times a week. 3 days a week 0 Active Comment on above: Take 65 mg by mouth three times a week. 3 days a week Fish Oil-Bland-3 Fatty Acids (FISH OIL) 340-1,000 mg cap (4 sources) take 1 capsule by mouth once daily Fish Oil-Bland-3 Fatty Acids (FISH OIL) 340-1,000 mg cap Take 1 capsule by mouth once daily. Active take 1 capsule by mouth once ca ly Fish Oil-Bland-3 Fatty Acids (FISH OIL) 340-1,000 mg cap Take 1 capsule by mouth once daily. 0 Active Comment on above: Take 1 capsule by mo ut once daily. Fish Oils (11 sources) take 1 capsule by mouth once daily Fish Oil 1000 MG 1 capsule Orally Once a day Active glucosamine/chondroit in/C/Bin (GLUCOSAMINE 1500 COMPLEX ORAL) (4 sources) glucosamine/walt droi tin/C/Bin (GLUCOSAMINE 1500 COMPLEX ORAL) Take 1,500 mg by mouth once daily. Active glucosamine/walt droitin/C/Bin (GLUCOSAMINE 1500 COMPLEX ORAL) Take 1,500 mg by mouth once daily. 0 Active Comment on above: Take 1,500 mg by risa th once daily. Iron (7 sources) take 1 tablet by mouth once leeanna y Iron 325 (65 Fe) MG 1 tablet Orally Once a day Active magnesium citrate 100 mg oral tablet (4 sources) Start: 08-19-2023 take 1 capsule by mouth once daily Magnesium Citrate 100 mg capsule Active 100 MG PO Daily August 19, 2023 12:00am Complies with drug therapy magnesium oxide 400 mg oral tablet (4 sources) take 1 tablet by mouth once daily at bedtime magnesium oxide 400 mg magnesium tab Take 400 mg by mouth daily at bedtime. Active Comment on above: Take 400 mg by mouth daily at bedtime. melatonin 5 mg oral capsule (9 sources) Melatonin 5 mg c ap Take by mouth. Active Melatonin 1 MG c apsule Take by mouth at bedtime Active multivitamin tablet (4 sources) Start: 03-13-2012 take 1 tablet by mouth once daily multivitamin tablet Take 1 tablet by mouth once daily. 0 03/13/2012 Active Comment on above: Take 1 tablet by risa th once daily. niacin 500 mg extended release oral capsule (12 sources) Nicotinic Acid take 1 capsule by mouth once daily at bedtime niacin 500 mg CR capsule Take 500 mg by mouth daily at bedtime. Active take 1 tablet by mouth at bedtim e niacin (Niaspan) 500 MG ER tablet Take 500 mg by mouth at bedtime Do not crush, chew, or split. Active Comment on above: Take 500 mg by mouth daily at bedtime. Paxlovid, 300/100, 20 x 150 MG & 10 x 100MG tablet therapy pack (8 sources) Start: 02-04-2023 take 3 tablets by mouth twice daily Paxlovid, 300/100, 20 x 150 MG & 10 x 100MG tablet therapy pack TAKE 3 TABLETS BY MOUTH TWICE A DAY FOR 5 DAYS 02/04/2023 Active PNV no.153/FA/om3/dha/e pa/fish ( GUMMIES ORAL) (4 sources) PNV no.153/FA/om3/dha/ epa/fish ( GUMMIES ORAL) Take by mouth once daily. Active PNV no.153/FA/om 3/dha/epa/fish ( GUMMIES ORAL) Take by mouth once daily. 0 Active Comment on above: Take by mouth once d aily. prasterone, DHEA, (DHEA ORAL) (4 sources) prasterone, DHEA , (DHEA ORAL) Take by mouth once daily. Active prasterone, DHEA , (DHEA ORAL) Take by mouth once daily. 0 Active Comment on above: Take by mouth once d aily. prednisoLONE acetate 10 mg/ml ophthalmic suspension (8 sources) Corticosteroid Start: 06-23-19 prednisoLONE acetate (Pred-Forte) 1 % ophthalmic suspension 06/23/2023 Active pyridoxine hydrochloride 25 mg oral tablet (8 sources) take 1 tablet by mouth in the morning pyridoxine (Vitamin B-6) 25 MG tablet Take 25 mg by mouth in the morning. Active thioctic acid 100 mg oral capsule (4 sources) Alpha Lipoic Aci d 100 mg cap Take by mouth once daily. Active Comment on above: Take by mouth once d aily. VITAMIN B COMPLEX ORAL (4 sources) VITAMIN B COMPLE X ORAL Take by mouth once daily. Active VITAMIN B COMPLE X ORAL Take by mouth once daily. 0 Active Comment on above: Take by mouth once d aily. Vitamin D3 1360288 UNIT/GM (18 sources) Vitamin D3 98403 00 UNIT/GM as directed Active vitamin e 268 mg oral capsule (12 sources) take 1 capsule by [facility] once daily alpha tocopheryl acetate (VITAMIN E) 400 unit capsule Take 400 Units by mouth once daily. Active take 1 capsule by mouth in the [facility] vitamin E 180 MG (400 UNIT) capsule Take 180 mg by mouth in the morning. Active Comment on above: Take 400 Units by [facility] once daily. {20 (nirmatrelvir 150 MG Oral Tablet) / 10 (ritonavir 100 MG Oral Tablet) } Pack [Paxlovid 5-Day] (2 sources) Start: 02-04-2023 take 3 tablets by mouth every twelve hours Paxlovid (300/100) 20 x 150 MG & 10 x 100MG 3 tablets Orally Twice a day for 5 day(s) Jan, Active Completed/Discontinued Medications Medication Drug Class(es) Dates Sig (Normalized) Sig (Original) alendronic acid 35 mg oral tablet (20 sources) Bisphosphonate Start: 08-12-2019 End: 12-01-2023 take 1 tablet by mouth every week Alendronate 35 mg tablet Discontinued 35 MG PO every week June 05, 2023 9:44am December 01, 2023 10:13am [facility] (Fosamax) 35 MG tablet Take 35 mg by mouth every 7 (seven) days Take in the morning with a full glass of water, on an empty stomach, and do not take anything else by mouth or lie down for the next 30 min. Active take 1 tablet by mouth once [...] 1 capsule Orally Once a day Not-Taking aspirin 81 mg chewable tablet (20 sources) Platelet Aggregation Inhibitor, Nonsteroidal Anti-inflammatory Drug Start: End: 4 take 1 tablet by mouth once daily Aspirin 81 mg tablet,chewable Discontinued 1 TAB PO Daily August 18, 2023 12:00am August 19, 2023 1:10pm [employer] tablet Orally Once a day; Note: Source Status: Taking; Provider: Luis Miguel Deal ( ) take 1 tablet by mouth once leeanna y aspirin, enteric coated (ASPIRIN, ENTERIC COATED) 81 mg EC tablet Take 81 mg by mouth once daily. Active take 1 tablet by risa th every twenty-four hours Aspirin 81 MG 1 tablet Orally Once a day Active Comment on above: Take 81 mg by mouth once daily. cefdinir 300 mg oral capsule (4 sources) Cephalosporin Antibacterial Start: 05-20-19 End: 09-21-19 take 1 capsule by mouth twice daily Cefdinir 300 mg capsule Discontinued 300 MG PO Twice daily May 20, 2024 1:00am September 20, 2024 10:59am DHEA 25 MG (9 sources) DHEA 25 MG as directed Orally Not-Taking doxycycline hyclate 100 mg oral tablet (3 sources) Tetracycline-class Drug Start: 09-21-19 End: 12-02-19 take 1 tablet by mouth twice daily Doxycycline Hyclate 100 mg tablet Discontinued 100 MG PO Twice daily September 20, 2024 12:00am December 01, 2024 9:56am fluocinonide 0.5 mg/ml topical cream (11 sources) Corticosteroid Start: 03-22-20 Fluocinonide 0.05 % apply 1-2 grams Externally up to three times weekly with PT Mar, Not-Taking glucosamine 750 mg oral tablet (9 sources) Glucosamine 750 MG as directed Orally Not-Taking losartan potassium 25 mg oral tablet (20 sources) Angiotensin 2 Receptor Rosamaria Start: 09-24-19 24 End: 06-03-19 take 1 tablet by mouth once daily Losartan 25 mg tablet Discontinued 0 .ROUTE .COMPLEX March 15, 2024 9:48am June 03, 2024 10:03am TAKE ONE TABLET BY MOUTH ONCE DAILY Start: 11-15-2017 End: 09-24-2023 take 1 tablet by mouth once daily Losartan 25 mg tablet Discontinued 25 MG PO Daily August 18, 2023 12:00am September 24, 2023 1:00pm FreeTextSig: TAKE 1 TABLET BY MOUTH EVERY DAY; Note: Source Status: Taking; Refills: 3; Qty: 90 Tablet; Provider: Luis Miguel Deal ( ) Comment on above: Take 25 mg by mouth once daily. Magnesium (9 sources) Magnesium 400 MG as directed Orally Not-Taking meloxicam 15 mg oral tablet (16 sources) Nonsteroidal Anti-inflammatory Drug Start: take 1 tablet by mouth every twenty-four hours Meloxicam 15 MG 1 tablet Orally Once a day for 30 day(s) Jul, Not-Taking Nirmatrelvir-Ritona vir (1 source) Start: End: Nirmatrelvir-Ritonavi r (Paxlovid) 300 mg (150 mg x 2)-100 mg tablets,dose pack Discontinued 0 PO .COMPLEX May 20, 2024 1:00am September 20, 2024 10:59am take TWO 150 mg tablets of nirmatrelvir with ONE 100 mg tablet of ritonavir twice daily for 5 days PO Nirmatrelvir-Ritona vir (Paxlovid) 300 mg (150 mg x 2)-100 mg tablets,dose pack (3 sources) Start: End: Nirmatrelvir-Ritonavi r (Paxlovid) 300 mg (150 mg x 2)-100 mg tablets,dose pack Discontinued 0 PO .COMPLEX May 20, 2024 1:00am September 20, 2024 10:59am take TWO 150 mg tablets of nirmatrelvir with ONE 100 mg tablet of ritonavir twice daily for 5 days PO Start: 05-20-2024 Nirmatrelvir-R itonavir (Paxlovid) 300 mg (150 mg x 2)-100 mg tablets,dose pack Active 0 PO .COMPLEX May 20, 2024 1:00am take TWO 150 mg tablets of nirmatrelvir with ONE 100 mg tablet of ritonavir twice daily for 5 days PO pravastatin sodium 40 mg oral tablet (20 sources) HMG-CoA Reductase Inhibitor Start: 03-13-2012 End: 09-03-2024 take 1 tablet by mouth once daily Pravastatin 40 mg tablet Discontinued 40 MG PO Daily June 10, 2023 1:00am June 11, 2023 10:49am FreeTextSig: TAKE 1 TABLET BY MOUTH EVERY DAY; Note: Source Status: Taking; Refills: 3; Qty: 90 Tablet; Provider: Luis Miguel Deal ( ) Comment on above: Take 1 tablet by risa th daily at bedtime. (9 sources) Not-Norman ing Probiotic (9 sources) Probiotic Not-Taking rOPINIRole 0.25 mg oral tablet (12 sources) Nonergot Dopamine Agonist End: 07-02-2023 take 1 tablet by mouth once daily at bedtime rOPINIRole (REQUIP) 0.25 mg tablet Take 0.25 mg by mouth daily at bedtime. 0 07/02/2023 Discontinued Requip TIFFANIE moses Comment on above: Take 0.25 mg by mout h daily at bedtime. tiZANidine 4 mg oral tablet (20 sources) Central alpha-2 Adrenergic Agonist Start: End: take 1 tablet by mouth three times daily as needed Tizanidine 4 mg tablet Discontinued 0 .ROUTE .COMPLEX 270 June 23, 2023 1:09pm September 20, 2024 10:59am TAKE 1 TABLET BY MOUTH THREE TIMES A DAY NEEDED FOR 90 DAYS Start: 06-23-2023 End: 06-23-2023 take 1 tablet by mouth three times daily Tizanidine 4 mg tablet Discontinued 4 MG PO Three times daily June 23, 2023 12:00am June 23, 2023 1:09pm Start: 06-06-2022 take 1 tablet by risa th every eight hours tiZANidine HCl 4 MG 1 tablet as needed Orally Three times a day for 90 days May, Active take 1 tablet by risa th once daily at bedtime tiZANidine (ZANAFLEX) 4 mg tablet Take 4 mg by mouth daily at bedtime. Active take 1 capsule by mo uth three times daily as needed for muscle spasms tiZANidine (Zanaflex) 4 MG capsule Take 4 mg by mouth 3 (three) times a day as needed for muscle spasms Active Triamcinolone (11 sources) Corticosteroid Start: 07-19-2020 Kenalog -40 mg Jul, 40 mg ubidecarenone 30 mg oral capsule (9 sources) CoQ10 30 MG as d irected Orally Not-Taking ubiquinol (3 sources) End: 07-02-2023 COQ10, UBIQUINOL, ORAL Take by mouth once daily. 0 07/02/2023 Discontinued COQ10, UBIQUINOL , ORAL Take by mouth once daily. 0 Active Comment on above: Take by mouth once d aily. Vitamin E 1000 IU (16 sources) Vitamin E 1000 I U Not-Taking Vitamin E 1000 I U Active Problems Active Problems Problem Classification Problem Date Documented Date Episodic/Chronic Acquired foot deformities (4 sources) Acquired hallux rigidus; Translations: [Hallux rigidus, right foot] Chronic Administrative/social admission (2 sources) Informing health caretaker resort of test result; Translations: [Person consulting for explanation of examination or test findings] Episodic Cancer of breast (15 sources) Malignant neoplasm of upper-outer quadrant of [...] vertigo; Translations: [Benign paroxysmal vertigo, bilateral] Episodic Delirium, dementia, and amnestic and other cognitive disorders (2 sources) Alzheimer's disease; Translations: [Alzheimer's disease, unspecified] 12-01-2024 Chronic Diabetes mellitus with complications (7 sources) Peripheral sensory neuropathy due to type 2 diabetes mellitus; Translations: [Type 2 diabetes mellitus with diabetic polyneuropathy] Chronic Diabetes mellitus without complication (14 sources) Impaired fasting glycemia; Translations: [Impaired fasting glucose] Onset: 11-15-2021 Episodic Disorders of lipid metabolism (20 sources) Hyperlipidemia; Translations: [Hyperlipidemia, unspecified] Onset: 03-19-2012 03-19-2012 Chronic Essential hypertension (20 sources) Hypertensive disorder; Translations: [Essential (primary) hypertension] Onset: 11-15-2021 Chronic Gastroduodenal ulcer (except hemorrhage) (2 sources) Peptic ulcer without hemorrhage, without perforation AND without obstruction; Translations: [Peptic ulcer, site unspecified, unspecified as acute or chronic, without hemorrhage or perforation] Chronic Headache; including migraine (2 sources) Headache; Translations: [Headache, unspecified] Episodic Immunizations and screening for infectious disease (7 sources) Encounter for screening for human papillomavirus (HPV); Translations: [Vaccination given] Onset: 09-06-2021 01-29-2024 Episodic Open wounds of extremities (1 source) Unspecified open wound, unspecified foot, initial encounter Episodic Osteoarthritis (20 sources) Arthritis of right hip; Translations: [Unilateral primary osteoarthritis, right hip] Onset: 01-10-2021 Resolved: 05-10-2021 Chronic Osteoporosis (8 sources) Postmenopausal osteoporosis; Translations: [Age-related osteoporosis without current pathological fracture] Onset: 11-03-2023 11-03-2023 Chronic Other acquired deformities (2 sources) Joint [...] fibromatosis; Translations: [Plantar fascial fibromatosis] Episodic Other connective tissue disease (8 sources) Pain in limb; Translations: [Pain in unspecified limb] 10-30-2023 Episodic Other connective tissue disease (8 sources) Cramp; Translations: [Cramp and spasm] 10-30-2023 Episodic Other endocrine disorders (13 sources) Hypoglycemia; Translations: [Hypoglycemia, unspecified] Chronic Other female genital disorders (2 sources) Noninflammatory disorder of the vagina; Translations: [Other specified noninflammatory disorders of vagina] Episodic Other hereditary and degenerative nervous system conditions (14 sources) Impaired cognition; Translations: [Mild cognitive impairment, so stated] Onset: 10-30-2023 12-22-2023 Chronic Other hereditary and degenerative nervous system conditions (16 sources) Restless legs; Translations: [Restless legs syndrome] 10-30-2023 Chronic Other injuries and conditions due to external [...] [Polyneuropathy, unspecified] Chronic Other nervous system disorders (10 sources) Polyneuropathy; Translations: [Polyneuropathy, unspecified] 10-30-2023 Chronic Other nervous system disorders (8 sources) Peripheral nerve disease ; Translations: [Polyneuropathy, unspecified] Onset: 10-30-2023 10-30-2023 Chronic Other nervous system disorders (8 sources) Small fiber neuropathy; Translations: [Polyneuropathy, unspecified] 10-30-2023 Chronic Other nervous system disorders (8 sources) Inflammatory and toxic neuropathy; Translations: [Polyneuropathy due to other toxic agents] 10-30-2023 Chronic Other nervous system disorders (1 source) Attention and concentration deficit; Translations: [Attention and concentration deficit] Onset: 08-09-2024 Chronic Other nervous system disorders (2 sources) Impaired cognition 05-12-2024 Episodic Other non-traumatic joint disorders (6 sources) Pain in left shoulder; Translations: [PAIN IN LEFT SHOULDER] Onset: 06-26-2022 Episodic Other non-traumatic joint disorders (4 sources) Hip pain; Translations: [Pain in left hip] 08-19-2023 Episodic Other nutritional; endocrine; and metabolic disorders (4 sources) Obese class I; Translations: [Body mass index (BMI) 32.0-32.9, adult] Chronic Other nutritional; endocrine; and metabolic disorders (2 sources) Obesity; Translations: [Obesity, unspecified] Chronic Other nutritional; endocrine; and metabolic disorders (2 sources) Body mass index 30+ - obesity; Translations: [Body mass index (BMI) 30.0-30.9, adult] Onset: 07-20-2019 Chronic Other skin disorders (2 sources) Seborrheic keratosis; Translations: [Other seborrheic keratosis] 04-26-2024 Episodic Other skin disorders (2 sources) Lentiginosis; Translations: [Other melanin hyperpigmentation] 04-26-2024 Episodic Other skin disorders (2 sources) Inflamed seborrheic keratosis; Translations: [Inflamed seborrheic keratosis] 04-26-2024 Episodic Other upper respiratory infections (7 sources) Acute maxillary sinusitis; Translations: [Acute recurrent maxillary sinusitis] Onset: 01-02-2017 05-20-2024 Episodic Peripheral and visceral atherosclerosis (1 source) Peripheral vascular disease, unspecified; Translations: [PERIPHERAL VASCULAR DISEASE UNS] Onset: 02-15-2022 Chronic Residual codes; unclassified (20 sources) Obstructive sleep apnea syndrome; Translations: [Obstructive sleep apnea (adult) (pediatric)] Onset: 01-25-2015 12-22-2023 Chronic Residual codes; unclassified (1 source) Obstructive sleep apnea (adult) (pediatric) Chronic Residual codes; unclassified (2 sources) Obstructive sleep apnea of adult; Translations: [Obstructive sleep apnea (adult) (pediatric)] 09-28-2024 Chronic Residual codes; unclassified (5 sources) Asymptomatic menopausal state; Translations: [ASYMPTOMATIC MENOPAUSAL STATE] Onset: 10-09-2021 Episodic Residual codes; unclassified (2 sources) Tobacco user; Translations: [Tobacco use] Episodic Residual codes; unclassified (2 sources) Postprocedural state finding; Translations: [Other specified postprocedural states] Episodic Residual codes; unclassified (1 source) Other amnesia Episodic Residual codes; unclassified (6 sources) FH: Alzheimer's disease; Translations: [Family history of epilepsy and other diseases of the nervous system] 12-22-2023 Episodic Spondylosis; intervertebral disc disorders; other back [...] level, left arm, initial encounter Episodic Unclassified (4 sources) LOW BACK PAIN, UNSPECIFIED; Translations: [LOW BACK PAIN, UNSPECIFIED] Onset: 04-18-2022 Unclassified (1 source) CONTACT W/AND (SUSP) EXPOS COVID-19; Translations: [CONTACT W/AND (SUSP) EXPOS COVID-19] Onset: 04-25-2022 Viral infection (18 sources) Verruca vulgaris; Translations: [Other viral warts] 05-20-2024 Episodic Past or Other Problems Problem Classification Problem Date Documented Da te Episodic/Chronic Cancer of breast (6 sources) History of malignant neoplasm of breast; Translations: [Personal history of malignant neoplasm of breast] Onset: 12-19-2016 12-19-2016 Episodic Malaise and fatigue (2 sources) Fatigue; Translations: [Other fatigue] Onset: 07-14-2013 Episodic Menstrual disorders (2 sources) Excessive and frequent menstruation; Translations: [Excessive and frequent menstruation with regular cycle] Onset: 09-20-2005 Resolved: 06-19-2016 Chronic Other aftercare (8 sources) H/O: high risk medication; Translations: [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] Onset: 10-30-2023 10-30-2023 Episodic Other bone disease and musculoskeletal deformities (1 [...] unspecified] Onset: 10-11-2014 Resolved: 07-21-2020 Chronic Other nervous system disorders (8 sources) Paresthesia; Translations: [Paresthesia of skin] Onset: 10-30-2023 10-30-2023 Episodic Other nutritional; endocrine; and metabolic disorders [...] SCREENING MALIG NEOPLASM CERV] Onset: 09-03-2021 Episodic Residual codes; unclassified (10 sources) Postmenopausal state; Translations: [Asymptomatic menopausal state] Onset: 11-03-2023 11-03-2023 Episodic Residual codes; unclassified (2 sources) Family history of breast cancer; Translations: [Family history of malignant neoplasm of breast] Onset: 07-14-2013 Resolved: 08-11-2019 Episodic Residual codes; unclassified (10 sources) Memory impairment; Translations: [Other amnesia] Onset: 10-30-2023 10-30-2023 Episodic Residual codes; unclassified (8 sources) Amnesia; Translations: [Other amnesia] Onset: 10-30-2023 10-30-2023 Episodic Unclassified (1 source) LOW BACK PAIN, UNSPECIFIED; Translations: [LOW BACK PAIN, UNSPECIFIED] Onset: 05-16-2022 Viral infection (14 sources) Disease caused by 2019-nCoV; Translations: [COVID-19] Results Test Name Value Interpretation Reference Range [facility] ([facility]) Office ([place]) ---- PRIYAPARTH Jose ([id number]) 1955 F Date Time Provider Department 06/29/24 10:40 AM GREGG BLUM During your visit today, we recorded the following information about you: Temperature Pulse Respiration Blood pressure 97.6 degrees 84/minute 18/minute 134/80 Weight 78.4 kg Gregg Blum MD 06/30/2024 9:48 AM Signed PATIENT NAME: Parth Powers DATE: 06/29/2024 PRIMARY CARE PHYSICIAN: David Bolanos MD OTHER PHYSICIANS: Dr. Dejesus, Dr. Tash Quesada, Dr. Serna (Pain Management) Portions of this encounter note have been copied from the note from 07/01/2023 and has been updated where appropriate, and reflect my current medical decision making from today. CC: This is a 69 year old female with a history of breast cancer, seen for scheduled follow-up. INTERIM HISTORY: Since the patient's last visit here she has had no significant medical changes. Overall she feels well with no particular complaints. She has noticed no changes in her chest wall. No unusual pain or other systemic symptoms. MEDICATIONS: denosumab (PROLIA SUBCUTANEOUS) Inject subcutaneously. tiZANidine (ZANAFLEX) 4 mg tablet Take 4 mg by mouth daily at bedtime. donepezil (ARICEPT) 10 mg tablet Take 10 mg by mouth daily at bedtime. Melatonin 5 mg cap Take by mouth. aspirin, enteric coated (ASPIRIN, ENTERIC COATED) 81 mg EC tablet Take 81 mg by mouth once daily. cholecalciferol (VITAMIN D-3) 50 mcg (2,000 unit) tablet Take 2,000 Units by mouth once daily. ascorbic acid (VITAMIN C ORAL) Take by mouth once daily. glucosamine/chondro itin/C/Bin (GLUCOSAMINE 1500 COMPLEX ORAL) Take 1,500 mg by mouth once daily. Fish Oil-Bland-3 Fatty Acids (FISH OIL) 340-1,000 mg cap Take 1 capsule by mouth once daily. niacin 500 mg CR capsule Take 500 mg by mouth daily at bedtime. magnesium oxide 400 mg magnesium tab Take 400 mg by mouth daily at bedtime. calcium carbonate/vitamin D3 (CALCIUM 600 + D,3, ORAL) losartan (COZAAR) 25 mg tablet Take 25 mg by mouth once daily. alpha tocopheryl acetate (VITAMIN E) 400 unit capsule Take 400 Units by mouth once daily. VITAMIN B COMPLEX ORAL Take by mouth once daily. BIOTIN ORAL Take by mouth. A-CYSTEINE/ARG ZN/GLUT/MV-MN (RESTORE-X ORAL) Take by mouth. FERROUS SULFATE (IRON ORAL) Take 65 mg by mouth three times a week. 3 days a week ACETAMINOPHEN (TYLENOL 8 HOUR ORAL) Take 2 tablets by mouth as needed. multivitamin tablet Take 1 tablet by mouth once daily. pravastatin (PRAVACHOL) 40 mg tablet Take 1 tablet by mouth daily at bedtime. PNV no.153/FA/om3/dha/e pa/fish ( GUMMIES ORAL) Take by mouth once daily. Alpha Lipoic Acid 100 mg cap Take by mouth once daily. prasterone, DHEA, (DHEA ORAL) Take by mouth once daily. alendronate (FOSAMAX) 35 mg tablet Take 35 mg by mouth one time a week. ALLERGIES: Dilaudid [Hydromorphone (Bulk)]; Latex, Natural Rubber; [...] left mastectomy area PHYSICAL EXAM: Vitals: BP 134/80 Pulse 84 Temp 36.4 ?C (97.6 ?F) (Temporal) Resp 18 Wt 78.4 kg (172 lb 13.5 oz) SpO2 97% BMI 29.80 kg/m? General appearance: well appearing, [...] symmetric, normal size Lymph Nodes: No Submandibular, cervica (more content not included)... Normal [facility] Basophils Auto (Bld) [#/Vol] on 05-17-2024 Basophils (Bld) [#/Vol] Automated basoph il count 0.0-0.1 [facility] Basophils/100 WBC Auto (Bld) on 05-17-2024 Basophils/100 WBC (Bld) Automated basoph il % 0.2-2.0 [facility] Eosinophils/100 WBC Auto (Bl d)on 05-17-2024 Eosinophils/100 WBC (Bld) Automated eosinophil % 0.9-7.0 [facility] Erythrocyte distribution wid th Auto (RBC) [Ratio]on 05-17-2024 Erythrocyte distribution width (RBC) [Ratio] Erythrocyte distribution width [Ratio] by Automated count 11.0-15.0 [facility] Estimated glomerular filtrat ion rate (GFR) non- Americanon 05-17-2024 GFR/1.73 sq M.predicted among non-blacks MDRD (S/P/Bld) [Vol rate/Area] Estimated glomerular filtration rate (GFR) non- >=60 mL/min/1.73m 2 [facility] Globulin Calc (S) [Mass/Vol] on 05-17-2024 Globulin (S) [Mass/Vol] Serum globulin measurement by calculation (mass/volume) [facility] Hematocrit Auto (Bld) [Volum e fraction]on 05-17-2024 Hematocrit (Bld) [Volume fraction] Hematocrit [Volume Fraction] of Blood by Automated count 36.0-48.0 [facility] Hemoglobin [Mass/volume] in Bloodon 05-17-2024 Hemoglobin (Bld) [Mass/Vol] Hemoglobin [Mass/volume] in Blood 12.0-16.0 [facility] Laboratory - Chemistry and C hemistry - challengeon 05-17-2024 Albumin [Mass/Vol] 3.6 g/dL 3.4-5.0 [facility] ALP [Catalytic activity/Vol] 42 U/L Low 46-116 [facility] ALT [Catalytic activity/Vol] 32 U/L 14-59 [facility] AST [Catalytic activity/Vol] 22 U/L 15-37 [facility] Bilirubin [Mass/Vol] 0.4 mg/dL 0.2-1.0 [facility] Calcium [Mass/Vol] 9.4 mg/dL 8.5-10.1 [facility] Chloride [Moles/Vol] 101 mmol/L 98-107 [facility] CO2 [Moles/Vol] 29.0 mmol/L 21.0-32.0 [facility] Creatinine [Mass/Vol] 0.69 mg/dL 0.55-1.02 [facility] GFR/1.73 sq M.predicted MDRD (S/P/Bld) [Vol rate/Area] mL/min/{1.73_m2} >=60 mL/min/1.73m 2 [facility] Glucose [Mass/Vol] 136 mg/dL High 74-106 [facility] Potassium [Moles/Vol] 4.1 mmol/L 3.5-5.1 [facility] Protein [Mass/Vol] 7.2 g/dL 6.4-8.2 [facility] Sodium [Moles/Vol] 140 mmol/L 136-145 [facility] Urea nitrogen [Mass/Vol] 11.0 mg/dL 7.0-18.0 [facility] Urea nitrogen/Creatinine [Mass ratio] 15.9 mg/mg [facility] Laboratory - Hematology and Cell countson 05-17-2024 Immature granulocytes/100 WBC (Bld) 0.3 % 0.0-0.5 [facility] Leukocytes [#/volume] correc camilo for nucleated erythrocytes in Blood by Automated counon 05-17-2024 WBC corrected for nucl RBC Auto (Bld) [#/Vol] Leukocytes [#/volume] corrected for nucleated erythrocytes in Blood by Automated coun 4.0-11.0 [facility] Lymphocytes Auto (Bld) [#/Vo l]on 05-17-2024 Lymphocytes (Bld) [#/Vol] Lymphocytes [#/volume] in Blood by Automated count 1.2-3.8 [facility] Lymphocytes/100 WBC Auto (Bl d)on 05-17-2024 Lymphocytes/100 WBC (Bld) Lymphocytes/100 leukocytes in Blood by Automated count Low 20.5-60.0 [facility] MCH Auto (RBC) [Entitic mass ]on 05-17-2024 MCH (RBC) [Entitic mass] MCH [Entitic mass] by Automated count 26.7-34.0 [facility] MCHC Auto (RBC) [Mass/Vol]on 05-17-2024 MCHC (RBC) [Mass/Vol] MCHC [Mass/volume] by Automated count 29.9-35.2 [facility] MCV Auto (RBC) [Entitic vol] on 05-17-2024 MCV (RBC) [Entitic vol] MCV [Entitic volume] by Automated count 81.0-99.0 [facility] Monocytes Auto (Bld) [#/Vol] on 05-17-2024 Monocytes (Bld) [#/Vol] Automated blood monocyte count High 0.3-0.8 [facility] Monocytes/100 WBC Auto (Bld) on 05-17-2024 Monocytes/100 WBC (Bld) Automated monocy te % High 1.7-12.0 [facility] Neutrophils Auto (Bld) [#/Vo l]on 05-17-2024 Neutrophils (Bld) [#/Vol] Neutrophils [#/volume] in Blood by Automated count 1.4-6.5 [facility] Neutrophils/100 WBC Auto (Bl d)on 05-17-2024 Neutrophils/100 WBC (Bld) Automated neutrophil % 43.0-75.0 [facility] No Panel Informationon 05-17 Eosinophils # (Auto) 0.1 10 3/uL 0.0-0.7 [facility] Immature Granulocyte # (Auto) 0.02 10 3/uL 0.00-0.03 [facility] Platelet mean volume Auto (B ld) [Entitic vol]on 05-17-2024 Platelet mean volume (Bld) [Entitic vol] Platelet mean volume [Entitic volume] in Blood by Automated count 9.5-13.5 [facility] Platelets Auto (Bld) [#/Vol] on 05-17-2024 Platelets (Bld) [#/Vol] Platelets [#/volume] in Blood by Automated count 150-450 [facility] RBC Auto (Bld) [#/Vol]on RBC (Bld) [#/Vol] Erythrocytes [#/volume] in Blood by Automated count Low 4.20-5.40 [facility] Serum or plasma albumin/glob ulin mass ratioon 05-17-2024 Albumin/Globulin [Mass ratio] Serum or plasma albumin/globulin mass ratio [facility] Serum or plasma anion gap de terminationon 05-17-2024 Anion gap [Moles/Vol] Serum or plasma anion gap determination [facility] Ambulatory Visit Summaryon 0 05-10-2024 Ambulatory Visit Summary Ambulatory Visit Summary PARTH POWERS :1955 Visit Date:05/10/2024 Ambulatory Visit Instructions Your Diagnosis Urge incontinence Stress incontinence Your Care Team Attending Physician - Sandeep HILL MD Primary Care Physician - DAVID BOLANOS MD This Is Your Medications List Contact prescribing physician if questions or concerns Misc Prescription (DONEPEZIL HYDROCHLORIDE) Non-Formulary Medication (fosamax) alpha-lipoic acid (Alpha Lipoic) ascorbic acid (Vitamin C) biotin calcium carbonate (calcium (as carbonate) 600 mg oral tablet) denosumab (Prolia 60 mg/mL subcutaneous solution) donepezil (Aricept 5 mg Tab) ferrous sulfate glucosamine (glucosamine hydrochloride 1500 mg [...] of therapeutic substance into bladder wall (11/19/2016), Hanna node biopsy (03/2012), Lumpectomy (02/2012), External beam radiotherapy (2011), Cystoscopy (04/11/2003), Urodynamics (04/11/2003), D&C - Dilatation and curettage, Excision of calcaneal spur. Discharge Vitals Temperature (Temporal Artery) 37 ???C Heart Rate (Peripheral) 72 Respiratory Rate 18 Blood Pressure 129/74 Height 165 cm Height 65 in Weight 80 kg Weight 176.37 lb BMI 29.38 What to do next Scheduled Follow-Up Appointments Friday2025 9:15 AM EST With: Sandeep HILL MD Where: [facility] [address] [address] You Need to Schedule the Following Appointments Follow Up with SERGIO DYKES, GIULIA Álvarez When: Comments: 1 yr (no labs) Where: [facility] [address], [place] [address] [phone] Medications What How Much When Instructions Unchanged alpha-lipoic acid (Alpha Lipoic) By Mouth Contact prescribing physician if questions or concerns Unchanged ascorbic acid (Vitamin C) By Mouth Every day Contact prescribing physician if questions or concerns Unchanged biotin By Mouth Every day Contact prescribing physician if questions or concerns Unchanged calcium carbonate (calcium (as carbonate) 600 mg oral tablet) Contact prescribing physician if questions or concerns Unchanged denosumab (Prolia 60 mg/ mL subcutaneous solution) Subcutaneous Every 6 months Contact prescribing physician if questions or concerns Unchanged donepezil (Aricept 5 mg Tab) 1 Tablets By Mouth Once a day (at bedtime) Contact prescribing physician if questions or concerns Unchanged ferrous sulfate By Mouth Contact prescribing physician if questions or concerns Unchanged glucosamine (glucosamine hydrochloride 1500 mg oral tablet) 1 Tablets By Mouth Every day Contact prescribing physician if questions or concerns Unchanged losartan (losartan 25 mg Tab) Contact prescribing physician if questions or concerns Unchanged magnesium sulfate Intravenous Once Contact prescribing physician if questions or concerns Unchanged melatonin (melatonin 5 mg oral capsule) By Mouth Once a day (at bedtime) Contact prescribing physician if questions or concerns Unchanged Misc Prescription (DONEPEZIL HYDROCHLORIDE) TAKE ONE TABLET BY MOUTH DAILY AT BEDTIME Contact prescribing physician if questions or concerns Unchanged multivitamin (Multi Vitamin+) Contact prescribing physician if questions or concerns Unchanged multivitamin (Vitamin B Complex oral capsule) By Mouth Every day Contact prescribing physician if questions or concerns Unchanged niacin By Mouth Contact prescribing physician if questions or concerns Unchanged Non-Formulary Medication (fosamax) 35 Milligram By Mouth Friday Contact prescribing physician if questions or concerns Unchanged omega-3 polyunsaturated fatty acids (Fish Oil) Contact prescribing physician if questions or concerns Unchanged pravastatin Contact prescribing physician if questions or concerns Unchanged tizanidine (tiZANidine 4 mg Tab) TAKE 1 TABLET BY MOUTH THREE TIMES A DAY NEEDED FOR 90 DAYS Contact prescribing physician if questions or concerns Unchanged vitamin E By Mouth Contact prescribing physician if questions or concerns Allergies Dilaudid (Nausea and vomiting) HYDROmorphone (Unknown) Latex (Rash) Oats (Nausea and vomiting) Tape (Rash) Vicodin (Nausea and vomiting) Problems Ongoing - Any problem that you are currently receiving treatment for. Anticoagulated Aspirin long (more content not included)... Normal [facility] Urology Office/Clinic Noteon 05-10-2024 Urology Office/Clinic Note Urology Office/Clinic Note Chief Complaint urge and stress incontinence HPI Staff 68yr old female pt here for 1yr f/u. Cysto with Botox done 10/21/23. Previous Dx: stress incontinence, urge incontinence Dysuria: denies Incomplete bladder emptying: denies Hematuria: denies Frequency: every 2-3 hours Urgency: sometimes Nocturia: denies Stream: no straining or intermittency Leaking: states not very often Post void dripping: denies Wearing pads/ Depends: denies Urge incontinence: denies Stress incontinence: with a hard sneeze but not very often Incontinence without Sensory Awareness: denies Abdominal pain: denies Flank pain: denies Sexual complaints: denies History of Present Illness Tests reviewed: reviewed UA I have reviewed the previous health record information and history for this patient from Dr. Hill and Za Espinoza NP. I have reviewed and [...] See HPI. Physical Exam Vitals & Measurements T: 37 ???C(Temporal Artery) HR: 72(Peripheral) RR: 18 BP: 129/74 HT: 65 in HT: 165 cm WT: 80 kg WT: 176.37 lb BMI: 29.38 General Appearance: alert , no acute distress, well nourished, well developed female. Assessment/Plan 1. Urge incontinence (N39.41: Urge incontinence) S/p Botox 100u 11/19/16, 02/17/18, 10/26/19, 02/06/21, 05/28/22, and 10/21/23. PVR (cc): 05/28/22 - 33 09/23/23 - 62 12/02/23 - 0 BBS 13 (4). UA today negative for blood and infection. Feels urgency is controlled. Does not feel Botox is warranted at this time. Denies difficulty emptying. Mentioned oral medications and risks/benefits if sxs were to become bothersome. -Cont sx monitoring -Pt to call if she feels Botox or a medication is warranted -F/u in 1 yr 2. Stress incontinence (N39.3: Stress incontinence (female) (male)) Leaks a few drops with a hard sneeze. Not bothersome. no pads Follow-up With When Contact Information SERGIO DYKES, Sandeep Simmons, URL [facility] [address], [place] [address]- [phone] Additional Instructions: 1 yr (no labs) Patient Education Kegel Exercises Lucinda, Ninoska Gold, personally scribed for Dr. Hill on 05/10/2024 09:30:34. . Documentation recorded by the scribe, Ninoska Gold, accurately reflects the services(s) I performed and decisions made by me. Authenticated by Dr. Hill on 05/10/2024 09:35:33. Problem List/Past Medical History Ongoing Anticoagulated Aspirin long-term use Eczema Esophageal reflux History of breast cancer Hyperlipidemia Hypertension prison current use of anticoagulant therapy Mixed incontinence Neuropathy Stress incontinence Urge incontinence Urinary urgency Historical No qualifying data Procedure/Surgical History Injection of therapeutic substance into bladder wall (05/28/2022), Injection of therapeutic substance into bladder wall (02/06/2021), Cystoscopy (10/26/2019), Bilateral mastectomy (02/2019), Injection of therapeutic substance into bladder wall (02/17/2018), Injection of therapeutic substance into bladder wall (11/19/2016), Hanna node biopsy (03/2012), Lumpectomy (02/2012), External beam [...] History Alcohol - Denies Alcohol Use, 06/28/2019 Never., 05/07/2024 Substance Abuse Never., 05/07/2024 Tobacco Never (less than 100 in lifetime) Tobacco Use:. Never Smokeless Tobacco Use:. Cigarettes, Household tobacco (more content not included)... Normal [facility] Comment on above: Result Comment: Elec tronically Signed By: Sandeep HILL MD\.br\Date and Time Signed: 05/10/24 09:35 EST\.br\Electronically Co-Signed By: Ninoska Gold\.br\Date and Time Co-Signed: 05/10/24 09:31 EST No Panel Informationon 04-26 [facility] Office/Clinic Noteon 12-02-2023 Urology Office/Clinic Note [...] since botox Follow-up With When Contact Information STACIE Espinoza APRN, Za Larson, FAM, URL Additional Instructions: PRN Patient Education Overactive Bladder, Adult I, Micheal Garcia, personally scribed for STACIE Espitia on 12/02/2023 15:24:10. . Documentation recorded by the [place] Garcia accurately reflects the services(s) I performed and decisions made by me. Authenticated by Za Espinoza APRN, FNP-C on 12/02/2023 15:58:10. Problem List/Past Medical History Ongoing Anticoagulated Aspirin long-term use Eczema Esophageal reflux History of breast cancer Hyperlipidemia Hypertension prison current use of anticoagulant therapy Mixed incontinence Neuropathy Stress incontinence Urge incontinence Urinary urgency Historical No qualifying data Procedure/Surgical History Injection of therapeutic substance into bladder wall (05/28/2022), Injection of therapeutic substance into bladder wall (02/06/2021), Cystoscopy (10/26/2019), Bilateral mastectomy (02/2019), Injection of therapeutic substance into bladder wall (02/17/2018), Injection of therapeutic substance into bladder wall (11/19/2016), Hanna node biopsy (03/2012), Lumpectomy (02/2012), External beam [...] Immunizations Vaccine Date Status Comments SARS-CoV-2 (COVID-19) [id number] 01/23/2022 Recorded influenza virus vaccine, inactivated 01/03/2022 Recorded SARS-CoV-2 (COVID-19) mRNA BNT-162b2 vax 01/22/2021 Recorded 2022-05-20: [id number] pneumococcal 23-valent vaccine 11/09/2020 Recorded SARS-CoV-2 (COVID-19) mRNA BNT-162b2 vax 06/16/2020 Recorded CLARITA (more content not included)... Normal [facility] Comment on above: Result Comment: Elec tronically Signed By: STACIE Espinoza APRN, [place] X\.br\Date and Time Signed: 12/02/23 15:58 EDT\.br\Electronically Co-Signed By: Micheal Garcia\.br\Date and Time Co-Signed: 12/02/23 15:24 EDT Main OR Intraoperative Recor don 10-21-2023 Main OR Intraoperative Record Main OR Intraoperative Record IntraOp Document Type FTURO Summary Primary Physician: Sandeep HILL MD Finalized Date/Time: 10/21/23 10:38:02 Pt. Name: PRIYAPARTH/Sex: 1955 Female Med Rec #: [id number] Physician: Sandeep HILL MD Financial #: [id number] Pt. Type: O Room/Bed: / Admit/Disch: 10/21/23 07:47:17 - Institution: Case Times FTURO Entry 1 Patient Times In Room 10/21/23 10:17:00 Out Room 10/21/23 10:35:00 Procedure Times Start 10/21/23 10:24:00 Stop 10/21/23 10:29:00 Anesthesia Times Last Modified By: Ok LIVINGSTON, Dalia Geller 10/21/23 10:30:02 General Comments: BOTOX 100 UNITS LOT #: [id number], EXP DATE: 07/2025 -Margarito RALPH RN Case Attendance FTURO Entry 1 Entry 2 Entry 3 Case Attendee SERGIO DYKES, Sandeep Ralph RN, Sussy Olivares Role Performed Surgeon - Primary Rabble Furnace Tender - Primary Scrub - Primary Time In [...] 100 UNITS Primary Procedure Yes Primary Surgeon Sandeep HILL MD 10/21/23 10:24:00 Stop 10/21/23 10:29:00 Anesthesia Type [...] By: Dalia Ralph RN 10/21/23 10:38 Normal [facility] Main OR Preoperative Recordo n 10-21-2023 Main OR Preoperative Record Main OR Preoperative Record Holding Area Document Type FTURO Summary Primary Physician: Sandeep HILL MD Finalized Date/Time: 10/21/23 10:03:41 Pt. Name: PARTH POWERS/Sex: 1955 Female Med Rec #: [id number] Physician: Sandeep HILL MD Financial #: [id number] Pt. Type: O Room/Bed: / Admit/Disch: 10/21/23 [...] HADLEY Shi RN, Ruthann 10/21/23 10:03 Normal [facility] Operative Reporton Operative Report Operative Report Patient: [...] with antibiotic coverage, Follow up arranged. Normal [facility] Comment on above: Result Comment: Elec tronically Signed By: SERGIO DYKES, Sandeep Christopher.jose francisco\Date and Time Signed: 10/21/23 10:34 EDT [place] 09-25-2023 Screens [id number] Normal [facility] Ambulatory Visit Summaryon 0 09-23-2023 Ambulatory Visit Summary PARTH POWERS Jose :1955 Visit Date:09/23/2023 Ambulatory Visit Instructions Your [...] of therapeutic substance into bladder wall (11/19/2016), Hanna node biopsy (03/2012), Lumpectomy (02/2012), External beam [...] DYKES, Sandeep Simmons Where: [facility] Patient Educationon 09-23-19 Patient Education Obstetrics and [...] health care provider. General instructions ? Take quay-wbl-oncnfxw and prescription medicines only as told by [...] monitor yo (more content not included)... Normal [facility] XR SHOULDER LT 2V or >on XR [...] by: IVÁN REY Date: 2022-06-26 14:15 Normal [facility] Basophils Auto (Bld) [#/Vol] Ordered By: Regina Biggs on 05-01-2022 Basophils (Bld) [#/Vol] 0.0 10*3/uL 0.0-0.2 [facility] [place] [facility] Basophils/100 WBC Auto (Bld) Ordered By: Regina Biggs on 05-01-2022 Basophils/100 WBC (Bld) 0.5 % . [facility] Body fluid albumin measureme nt (mass/volume)Ordered By: Regina Biggs on 05-01-2022 Albumin (Body fld) [Mass/Vol] 4.0 g/dL 3.2-5.5 [facility] [place] [facility] Creatinine and Glomerular fi ltration rate.predicted panel (S/P/Bld)Ordered By: Regina Biggs on 05-01-2022 Creatinine [Mass/Vol] 0.50 mg/dL 0.44-1.03 [facility] Eosinophils Auto (Bld) [#/Vo l]Ordered By: Regina Biggs on 05-01-2022 Eosinophils (Bld) [#/Vol] 0.1 10*3/uL 0.0-0.45 [facility] [place] [facility] Eosinophils/100 WBC Auto (Bl d)Ordered By: Regina Biggs on 05-01-2022 Eosinophils/100 WBC (Bld) 2.1 % . [facility] [place] [facility] Erythrocyte distribution wid th Auto (RBC) [Ratio]Ordered By: Regina Biggs on 05-01-2022 Erythrocyte distribution width (RBC) [Ratio] 14.6 % 11.9-15.3 [facility] [place] [facility] Estimated glomerular filtrat ion rate (GFR) non- AmericanOrdered By: Regina Biggs on 05-01-2022 GFR/1.73 sq M.predicted among non-blacks MDRD (S/P/Bld) [Vol rate/Area] > 60 mL/Min [facility] [place] [facility] Globulin Calc (S) [Mass/Vol] Ordered By: Regina Biggs on 05-01-2022 Globulin (S) [Mass/Vol] 2.4 g/dL [facility] Hematocrit Auto (Bld) [Volum e fraction]Ordered By: Regnia Biggs on 05-01-2022 Hematocrit (Bld) [Volume fraction] 41.0 % 34.0-46.4 [facility] [place] [facility] Hemoglobin [Mass/volume] in BloodOrdered By: Regina Biggs on 05-01-2022 Hemoglobin (Bld) [Mass/Vol] 13.6 g/dL 11.8-15.4 [facility] [place] [facility] Leukocytes [#/volume] correc camilo for nucleated erythrocytes in Blood by Automated counOrdered By: Regina Biggs on 05-01-2022 WBC corrected for nucl RBC Auto (Bld) [#/Vol] 5.7 10*3/uL 3.8-11.6 [facility] [place] [facility] Lymphocytes Auto (Bld) [#/Vo l]Ordered By: Regina Biggs on 05-01-2022 Lymphocytes (Bld) [#/Vol] 1.9 10*3/uL 1.00-4.8 [facility] [place] [facility] Lymphocytes/100 WBC Auto (Bl d)Ordered By: Regina Biggs on 05-01-2022 Lymphocytes/100 WBC (Bld) 34.2 % . [facility] [place] [facility] MCH Auto (RBC) [Entitic mass ]Ordered By: Regina Biggs on 05-01-2022 MCH (RBC) [Entitic mass] 32.1 pg 24.7-34.3 [facility] [place] [facility] MCHC Auto (RBC) [Mass/Vol]Or dered By: Regina Biggs on 05-01-2022 MCHC (RBC) [Mass/Vol] 33.3 g/dL 32.0-35.0 [facility] MCV Auto (RBC) [Entitic vol] Ordered By: Regina Biggs on 05-01-2022 MCV (RBC) [Entitic vol] 96.4 fL 80-100 [facility] Monocytes Auto (Bld) [#/Vol] Ordered By: Regina Biggs on 05-01-2022 Monocytes (Bld) [#/Vol] 0.6 10*3/uL 0.0-0.8 [facility] [place] [facility] Monocytes/100 WBC Auto (Bld) Ordered By: Regina Biggs on 05-01-2022 Monocytes/100 WBC (Bld) 10.7 % . [facility] Neutrophils Auto (Bld) [#/Vo l]Ordered By: Regina Biggs on 05-01-2022 Neutrophils (Bld) [#/Vol] 3.0 10*3/uL 1.8-7.7 [facility] [place] [facility] Neutrophils/100 WBC Auto (Bl d)Ordered By: Regina Biggs on 05-01-2022 Neutrophils/100 WBC (Bld) 52.5 % . [facility] [place] [facility] No Panel InformationOrdered By: Regina Biggs on 05-01-2022 Estimated GFR () > 60 mL/Min [facility] [place] [facility] Comment on above: GFR estimated refere nce range: According to KDOQI guidelines, <60 ml/min/1.73m2 is sufficient to diagnose a patient with chronic kidney disease. Pharmacy Creatinine Clearance (Chem N/A [facility] [place] [facility] Nucleated erythrocytes [Pres ence] in Blood by Automated countOrdered By: Regina Biggs on 05-01-2022 Nucleated RBC Auto Ql (Bld) 0.2 /100{WBC} 0-0.5 [facility] [place] [facility] Platelet mean volume Auto (B ld) [Entitic vol]Ordered By: Regina Biggs on 05-01-2022 Platelet mean volume (Bld) [Entitic vol] 8.5 fL 6.3-10.7 [facility] [place] [facility] Platelets Auto (Bld) [#/Vol] Ordered By: Reigna Biggs on 05-01-2022 Platelets (Bld) [#/Vol] 273 10*3/uL 150-450 [facility] [place] [facility] Protein [Mass/volume] in Ser um or PlasmaOrdered By: Regina Biggs on 05-01-2022 Protein [Mass/Vol] 6.4 g/dL 6.1-7.9 [facility] RBC Auto (Bld) [#/Vol]Ordere d By: Regina Biggs on 05-01-2022 RBC (Bld) [#/Vol] 4.25 10*6/uL 3.60-5.00 [facility] Serum or plasma alanine palumbo otransferase measurement without P-5'-P (enzymatic activiOrdered By: Regina Biggs on 05-01-2022 ALT No additional P-5'-P [Catalytic activity/Vol] 29 U/L 10-60 [facility] [place] [facility] Serum or plasma albumin/glob ulin mass ratioOrdered By: Regina Biggs on 05-01-2022 Albumin/Globulin [Mass ratio] 1.7 {ratio} [facility] [place] [facility] Serum or plasma alkaline juan sphatase measurement (enzymatic activity/volume)Ordered By: Regina Biggs on 05-01-2022 ALP [Catalytic activity/Vol] 46 U/L 32-92 [facility] [place] [facility] Serum or plasma anion gap de terminationOrdered By: Regina Biggs on 05-01-2022 Anion gap [Moles/Vol] 11.6 mmol/L 6.0-15.0 [facility] Serum or plasma aspartate am inotransferase measurement (enzymatic activity/volume)Ordered By: Regina Biggs on 05-01-2022 AST [Catalytic activity/Vol] 27 U/L 10-42 [facility] [place] [facility] Serum or plasma calcium gisele urement (mass/volume)Ordered By: Regina Biggs on 05-01-2022 Calcium [Mass/Vol] 9.8 mg/dL 8.2-10.2 [facility] Serum or plasma chloride christiane surement (moles/volume)Ordered By: Regina Biggs on 05-01-2022 Chloride [Moles/Vol] 97 mmol/L 95-114 [facility] Serum or plasma glucose gisele urement (mass/volume)Ordered By: Regina Biggs on 05-01-2022 Glucose [Mass/Vol] 96 mg/dL 70-100 [facility] Comment on above: ADA recommended refe rence rangeRandom Glucose Reference Range is dependent on time and content of last meal. Glucose of more than 200 mg/dL in a nonstressed, ambulatory subject supports the diagnosis of Diabetes Mellitus. Serum or plasma potassium me asurement (moles/volume)Ordered By: Regina Biggs on 05-01-2022 Potassium [Moles/Vol] 4.0 mmol/L 3.5-5.1 [facility] Serum or plasma sodium measu rement (moles/volume)Ordered By: Regina Biggs on 05-01-2022 Sodium [Moles/Vol] 133 mmol/L 136-146 [facility] Serum or plasma total biliru bin measurement (mass/volume)Ordered By: Regina Biggs on 05-01-2022 Bilirubin [Mass/Vol] 0.4 mg/dL 0.3-1.2 [facility] Serum or plasma total carbon dioxide measurement (moles/volume)Ordered By: Regina Biggs on 05-01-2022 CO2 [Moles/Vol] 28.4 mmol/L 22.0-30.0 [facility] Serum or plasma urea nitroge n measurement (mass/volume)Ordered By: Regina Pao on 05-01-2022 Urea nitrogen [Mass/Vol] 15 mg/dL 01-04 [facility] [place] [facility] WBC Auto (Bld) [#/Vol]Ordere d By: Regina Dian on 05-01-2022 WBC (Bld) [#/Vol] 5.7 10*3/uL 3.8-11.6 [facility] Covid-19 PCR (CVDTBH)on 03-16 SARS-CoV-2 (COVID-19) RNA DOUG+probe Ql (Unsp spec) Not detected Normal NOT DETECTED [facility] Comment on above: Result Comment: This test is not yet approved or cleared by the [place] FDA. When there are no FDA-approved or cleared tests available, and other criteria are met, FDA can make tests available under an emergency access mechanism called an Emergency Use Authorization (EUA). The EUA for this test is supported by the [employer] Commentator of Health and Human Service's (HHS's) declaration [...] consistent with SARS-CoV-2. Performed By: #### [facility] #### [facility] [address] [place] [address] Dr. Man Ortiz XR LSPINE MIN 4 [...] GILLES JIMENEZ Date: 2021-12-19 18:42 Normal [facility] CBC AUTO DIFFon 11-12-2021 BASO # 0.0 103/ul Normal 0.0-0.1 [facility] Comment on above: Performed By: #### C BC #### [facility] [address] [place] [address] Dr. Man Ortiz Basophils/100 WBC (Bld) 0.4 % Normal 0.2-2.0 [facility] Comment on above: Performed By: #### C BC #### [facility] [address] [place] [address] Dr. Man Ortiz EO # 0.1 103/ul Normal 0.0-0.7 [facility] Comment on above: Performed By: #### C BC #### [facility] [address] [place] [address] Dr. Man Ortiz Eosinophils/100 WBC (Bld) 1.6 % Normal 0.9-7.0 [facility] Comment on above: Performed By: #### C BC #### [facility] [address] [place] [address] Dr. Man Ortiz Erythrocyte distribution width (RBC) [Ratio] 15.1 % Critically high 11.0-15.0 [facility] Comment on above: Performed By: #### C BC #### [facility] [address] [place] [address] Dr. Man Ortiz Hematocrit (Bld) [Volume fraction] 37.8 % Normal 36.0-48.0 [facility] Comment on above: Performed By: #### C BC #### [facility] [address] [place] [address] Dr. Man Ortiz Hemoglobin (Bld) [Mass/Vol] 12.8 g/dL Normal 12.0-16.0 [facility] Comment on above: Performed By: #### C BC #### [facility] [address] [address] [address] Man Ortiz IG # 0.02 10e3/ul Normal 0.00-0.03 [facility] Comment on above: Performed By: #### C BC #### [facility] [address] [address] [address] Man Ortiz IG % 0.4 % Normal 0.0-0.5 [facility] Comment on above: Performed By: #### C BC #### [facility] [address] [place] [address] Dr. Man Ortiz LYMPH # 0.6 103/ul Critically low 1.2-3.8 [facility] Comment on above: Performed By: #### C BC #### [facility] [address] [place] [address] Dr. Man Ortiz Lymphocytes/100 WBC (Bld) 12.0 % Critically low 20.5-60.0 [facility] Comment on above: Performed By: #### C BC #### [facility] [address] [place] [address] Dr. Man Ortiz MANUAL DIFF REQ NO Normal [facility] Comment on above: Performed By: #### C BC #### [facility] [address] [place] [address] Dr. Man Ortiz MCH (RBC) [Entitic mass] 32.7 pg Normal 26.7-34.0 [facility] Comment on above: Performed By: #### C BC #### [facility] [address] [place] [address] Dr. Man Ortiz MCHC (RBC) [Mass/Vol] 33.9 g/dL Normal 29.9-35.2 [facility] Comment on above: Performed By: #### C BC #### [facility] [address] [place] [address] Dr. Man Ortiz MCV (RBC) [Entitic vol] 96.7 fL Normal 81.0-99.0 [facility] Comment on above: Performed By: #### C BC #### [facility] [address] [address] [address] Man Ortiz MONO # 0.7 103/ul Normal 0.3-0.8 [facility] Comment on above: Performed By: #### C BC #### [facility] [address] [place] [address] Dr. Man Ortiz Monocytes/100 WBC (Bld) 14.9 % Critically high 1.7-12. 0 [facility] Comment on above: Performed By: #### C BC #### [facility] [address] [place] [address] Dr. Man Ortiz NEUT # 3.5 103/ul Normal 1.4-6.5 [facility] Comment on above: Performed By: #### C BC #### [facility] [address] [place] [address] Dr. Man Ortiz Neutrophils/100 WBC (Bld) 70.7 % Normal 43.0-75.0 [facility] Comment on above: Performed By: #### C BC #### [facility] [address] [place] [address] Dr. Man Ortiz Platelet mean volume (Bld) [Entitic vol] 9.8 fL Normal 9.5-13.5 [facility] Comment on above: Performed By: #### C BC #### [facility] [address] [place] [address] Dr. Man Ortiz PLT 232 103/ul Normal 150-450 [facility] Comment on above: Performed By: #### C BC #### [facility] [address] [place] [address] Dr. Man Ortiz RBC 3.91 106/ul Critically low 4.20-5.40 [facility] [place] [facility] Comment on above: Performed By: #### C BC #### [facility] [address] [place] [address] Dr. Man Ortiz WBC 5.0 103/ul Normal 4.0-11.0 [facility] Comment on above: Performed By: #### C BC #### [facility] [address] [place] [address] Dr. Man Ortiz GLYCOHEMOGLOBIN A1Con 2021 ADA RECOMMENDATION SEE BELOW Normal [facility] Comment on above: Result Comment: ADA RECOMMENDED LIMIT 4.0 - 6.0 ADA THERAPEUTIC TARGET < 7.0 ACTION SUGGESTED > 7.0 Performed By: #### A 1C ####[facility] [address] [id number]. Man Ortiz Glucose [Mass/Vol] 134 mg/dL Normal [facility] Comment on above: Performed By: #### A 1C ####[facility] [address] [id number]. Man Ortiz HbA1c (Bld) [Mass fraction] 6.3 % Critically high 4.5-6.2 [facility] Comment on above: Performed By: #### A 1C ####[facility] [address] [address]Dr. aMn Ortiz LIPID PROFILEon 11-12-2021 CHOL-HDL RATIO NORM SEE BELOW Normal [facility] Comment on above: Result Comment: 3.3 - 4.4 LOW RISK 4.4 - 7.1 AVERAGE RISK 7.1 - 11.0 MODERATE RISK >11.0 HIGH RISK Performed By: #### C MP, LIPID ####[facility] [address] [id number]. Man Ortiz Cholesterol [Mass/Vol] 233 mg/dL Critically high <=200 [facility] Comment on above: Performed By: #### C MP, LIPID ####[facility] [address] [address]Dr. Man Ortiz Cholesterol in HDL [Mass/Vol] 61 mg/dL Critically high 40-60 [facility] Comment on above: Performed By: #### C MP, LIPID ####[facility] [address] [address]Dr. Man Ortiz Cholesterol in LDL [Mass/Vol] 123.6 mg/dL Normal [facility] Comment on above: Performed By: #### C MP, LIPID ####[facility] [address] [address]Dr. Man Ortiz Cholesterol.total/Mickie sterol in HDL [Mass ratio] 3.8 {ratio} Normal [facility] Comment on above: Performed By: #### C MP, LIPID ####[facility] [address] [address]Dr. Man Ortiz HDL NORMAL > or = 60 mg/dl - LOW CARDIOVASCULAR RISK <40 mg/dl - HIGH CARDIOVASCULAR RISK Normal [facility] Comment on above: Performed By: #### C MP, LIPID ####[facility] [address] [address]Dr. Man Ortiz LDL CALC NORMAL SEE BELOW Normal [facility] Comment on above: Result Comment: <100 mg/dl OPTIMAL 100 - 129 mg/dl NEAR OR ABOVE OPTIMAL 130 - 159 mg/dl BORDERLINE HIGH 160 - 189 mg/dl HIGH >190 mg/dl VERY HIGH Performed By: #### C MP, LIPID ####[facility] [address] [address]Dr. Man Ortiz Triglyceride [Mass/Vol] 242 mg/dL Critically high <=150 [facility] Comment on above: Performed By: #### C MP, LIPID ####[facility] [address] [address]Dr. Man Ortiz VLDL CALC 48.4 mg/dL Normal [facility] Comment on above: Performed By: #### C MP, LIPID ####[facility] [address] [address]Dr. Man Ortiz PROF 14(COMP METB)on 022 Albumin [Mass/Vol] 3.7 g/dL Normal 3.4-5.0 [facility] Comment on above: Performed By: #### C MP, LIPID ####[facility] [address] [address]Dr. Man Ortiz Albumin/Globulin [Mass ratio] 1.2 {ratio} Normal [facility] Comment on above: Performed By: #### C MP, LIPID ####[facility] [address] [address]Dr. Man Ortiz ALP [Catalytic activity/Vol] 36 U/L Critically low 46-116 [facility] Comment on above: Performed By: #### C MP, LIPID ####[facility] [address] [address]Dr. Man Ortiz ALT [Catalytic activity/Vol] 46 U/L Normal 14-59 [facility] Comment on above: Performed By: #### C MP, LIPID ####[facility] [address] [place] [address]Dr. Man Ortiz Anion gap [Moles/Vol] 13.5 mmol/L Normal [facility] Comment on above: Performed By: #### C MP, LIPID ####[facility] [address] [address]Dr. Man Ortiz AST [Catalytic activity/Vol] 33 U/L Normal 15-37 [facility] Comment on above: Performed By: #### C MP, LIPID ####[facility] [address] [address]Dr. Man Ortiz Bilirubin [Mass/Vol] 0.5 mg/dL Normal 0.2-1.0 [facility] Comment on above: Performed By: #### C MP, LIPID ####[facility] [address] [place] [address]Dr. Man Ortiz Calcium [Mass/Vol] 8.9 mg/dL Normal 8.5-10.1 [facility] Comment on above: Performed By: #### C MP, LIPID ####[facility] [address] [place] [address]Dr. Man Ortiz Chloride [Moles/Vol] 101 mmol/L Normal 98-107 [facility] Comment on above: Performed By: #### C MP, LIPID ####[facility] [address] [place] [address]Dr. Man Ortiz CO2 [Moles/Vol] 28.5 mmol/L Normal 21.0-32.0 [facility] Comment on above: Performed By: #### C MP, LIPID ####[facility] [address] [address]Dr. Hallieruma Ortiz Creatinine [Mass/Vol] 0.62 mg/dL Normal 0.55-1.02 [facility] Comment on above: Performed By: #### C MP, LIPID ####[facility] [address] [address]Dr. Man Ortiz EGFR-AF CAMBODIAN >60 Normal >=60 [facility] Comment on above: Performed By: #### C MP, LIPID ####[facility] [address] [place], [place] [address]Rf. Man Ortiz EGFR-NON AF CAMBODIAN >60 Normal >=60 [facility] Comment on above: Performed By: #### C MP, LIPID ####[facility] [address] [place], [place] [address]Rn. Man Ortiz Globulin (S) [Mass/Vol] 3.2 g/dL Normal [facility] Comment on above: Performed By: #### C MP, LIPID ####[facility] [address] [phone]. Man Ortiz Glucose [Mass/Vol] 114 mg/dL Critically high 74-106 [facility] Comment on above: Performed By: #### C MP, LIPID ####[facility] [address] [address]Dr. Mna Angel Potassium [Moles/Vol] 4.0 mmol/L Normal 3.5-5.1 [facility] Comment on above: Performed By: #### C MP, LIPID ####[facility] [address] [place] [address]Dr. Man Angel Protein [Mass/Vol] 6.9 g/dL Normal 6.4-8.2 [facility] Comment on above: Performed By: #### C MP, LIPID ####[facility] [address] [place] [address]Dr. Man Ortiz Sodium [Moles/Vol] 139 mmol/L Normal 136-145 [facility] Comment on above: Performed By: #### C MP, LIPID ####[facility] [address] [place] [address]Dr. Man Angel Urea nitrogen [Mass/Vol] 12.0 mg/dL Normal 7.0-18.0 [facility] Comment on above: Performed By: #### C MP, LIPID ####[facility] [address] [phone]. Man Ortiz Urea nitrogen/Creatinine [Mass ratio] 19.4 mg/mg Normal [facility] Comment on above: Performed By: #### C MP, LIPID ####[facility] [address] [place] [phone]. Man Ortiz XR DEXA BONE DENSITYon 10-09 [...] by: GILLES JIMENEZ Date: 2021-10-09 17:05 Normal [facility] PAP ACOG PANEL 2: 30 to 65on 09-08-2021 . . Normal [facility] Comment on above: Result Comment: Perf ormed at: BA Performed By: #### [id number] #### [facility] [address] [address] [address] Man Ortiz Age Gdln ACOG Testing Comment Normal [facility] Comment on above: Result Comment: <21 or >65 or no age provided Performed By: #### [id number] #### [facility] [address] [address] [address] Man Ortiz DIAGNOSIS: Comment Normal [facility] Comment on above: Result Comment: NEGA TIVE FOR INTRAEPITHELIAL LESION OR MALIGNANCY. CELLULAR CHANGES ASSOCIATED WITH ATROPHY ARE PRESENT. Performed at: BA Performed By: #### [id number] #### [facility] [address] [address] [address] Man Ortiz Methodology: Comment Normal [facility] Comment on above: Result Comment: This liquid based ThinPrep(R) pap test was screened with the use of an image guided system. Performed at: WB Performed By: #### [id number] #### [facility] [address], [place] [address] Dr. Man Ortiz Note: Comment Normal [facility] Comment on above: Result Comment: The Pap smear is a screening test designed to aid in the detection of premalignant and malignant conditions of the uterine cervix. It is not a diagnostic procedure and should not be used as the sole means of detecting cervical cancer. Both false-positive and false-negative reports do occur. . Performed at: WB Performed By: #### [id number] #### [facility] [address] [address] [address] Man Ortzi Performed by: Comment Normal [facility] Comment on above: Result Comment: Uvaldo Wood, Transfer Man (ASCP) Performed at: BA Performed By: #### [id number] #### [facility] [address] [address] [address] Man Ortiz Specimen adequacy: Comment Normal [facility] Comment on above: Result Comment: Sati sfactory for evaluation. Endocervical component may not be distinguished in cases of atrophy. Performed at: BA Performed By: #### [id number] #### [facility] [id number] Man Ortiz XR hip RT min 2V(w/wo pelvis )*on 01-17-2021 XR hip RT min 2V(w/wo pelvis)* [facility] Other XR hip RT min 2V(w/wo pelvis)* [facility] Other XR hip RT min 2V(w/wo pelvis)* [address] [place] [address] [facility] Other XR hip RT min 2V(w/wo pelvis)* [address] [facility] Other XR hip RT min 2V(w/wo pelvis)* XRay Report [facility] Other XR hip RT min 2V(w/wo pelvis)* Signed [facility] Other XR hip RT min 2V(w/wo pelvis)* Patient: Parth Powers MR#: [id number] [facility] Other XR hip RT min 2V(w/wo pelvis)* 80 [facility] Other XR hip RT min 2V(w/wo pelvis)* : 1955 Acct:[id number] [facility] Other XR hip RT min 2V(w/wo pelvis)* Age/Sex: 65 / F ADM Date: 01/17/21 [facility] Other XR hip RT min 2V(w/wo pelvis)* Loc: [facility] Room: Type: [facility] Other XR hip RT min 2V(w/wo pelvis)* Attending Dr: Elder Vigil MD [facility] Other XR hip RT min 2V(w/wo pelvis)* Ordering Provider: Elder Vigil MD [facility] Other XR hip RT min 2V(w/wo pelvis)* Date of Service: 01/17/21 [facility] Other XR hip RT min 2V(w/wo pelvis)* XR/XR hip RT min 2V(w/wo pelvis)*: Arthritis of right hip [facility] Other XR hip RT min 2V(w/wo pelvis)* Copies to: Elder Vigil MD [facility] Other XR hip RT min 2V(w/wo pelvis)* XR hip RT min 2V(w/wo pelvis)* 01/17/2021 9:28 AM [facility] Other XR hip RT min 2V(w/wo pelvis)* SIGNS AND SYMPTOMS: Right leg weakness with pain in right groin [facility] Other XR hip RT min 2V(w/wo pelvis)* PROTOCOL: Frontal radiograph the pelvis with frontal and frog-leg views of the right hip [facility] Other XR hip RT min 2V(w/wo pelvis)* COMPARISON: None [facility] Other XR hip RT min 2V(w/wo pelvis)* FINDINGS: [facility] Other XR hip RT min 2V(w/wo pelvis)* There is enthesophyte formation of the greater trochanters bilaterally. The joint spaces of the [facility] Other XR hip RT min 2V(w/wo pelvis)* hips are preserved. The bony ring of the pelvis is grossly intact. Vascular calcifications are [facility] Other XR hip RT min 2V(w/wo pelvis)* present in the pelvis. There is no evidence of fracture or dislocation. [facility] Other XR hip RT min 2V(w/wo pelvis)* XR/XR hip RT min 2V(w/wo pelvis)* [facility] Other XR hip RT min 2V(w/wo pelvis)* IMPRESSION: [facility] Other XR hip RT min 2V(w/wo pelvis)* No fracture or dislocation. [facility] Other XR hip RT min 2V(w/wo pelvis)* No significant degenerative change within the joint spaces of the hips. [facility] Other XR hip RT min 2V(w/wo pelvis)* Impression dictated by: Chilango Case M.D.01/17/2021 1:00 PM [facility] Other XR hip RT min 2V(w/wo pelvis)* Dictation Location: [place] [address] [facility] Other XR hip RT min 2V(w/wo pelvis)* Transcribed By: PWS 01/17/21 1300 [facility] Other XR hip RT min 2V(w/wo pelvis)* Dictated By: Chilango Case II, MD 01/17/21 1259 [facility] Other XR hip RT min 2V(w/wo pelvis)* Signed By: [facility] Other XR hip RT min 2V(w/wo pelvis)* 01/17/21 1300 [facility] Other XR lumbar spine AP/LAT/FLX/E XTon 01-10-2021 XR lumbar spine AP/LAT/FLX/EXT [facility] Other XR lumbar spine AP/LAT/FLX/EXT [facility] Other XR lumbar spine AP/LAT/FLX/EXT [address] [place] [address] [facility] Other XR lumbar spine AP/LAT/FLX/[place] [address] [facility] Other XR lumbar spine AP/LAT/FLX/EXT XRay Report [facility] Other XR lumbar spine AP/LAT/FLX/EXT Signed [facility] Other XR lumbar spine AP/LAT/FLX/EXT Patient: Parth Powers MR#: [id number] [facility] Other XR lumbar spine AP/LAT/FLX/EXT 80 [facility] Other XR lumbar spine AP/LAT/FLX/EXT : 1955 Acct:[id number] [facility] Other XR lumbar spine AP/LAT/FLX/EXT Age/Sex: 65 / F ADM Date: 01/10/21 [facility] Other XR lumbar spine AP/LAT/FLX/EXT Loc: [facility] Room: Type: REG CLI [facility] Other XR lumbar spine AP/LAT/FLX/EXT Attending Dr: Keith Gaspar DO [facility] Other XR lumbar spine AP/LAT/FLX/EXT Ordering Provider: Keith Gaspar DO [facility] Other XR lumbar spine AP/LAT/FLX/EXT Date of Service: 01/10/21 [facility] Other XR lumbar spine AP/LAT/FLX/EXT XR/XR lumbar spine AP/LAT/FLX/EXT: Pain of right lower [facility] Other XR lumbar spine AP/LAT/FLX/EXT extremity;Arthritis of right hip [facility] Other XR lumbar spine AP/LAT/FLX/EXT Copies to: Keith Gaspar DO [facility] Other XR lumbar spine AP/LAT/FLX/EXT AP with lateral neutral, flexion extension views of the lumbar spine [facility] Other XR lumbar spine AP/LAT/FLX/EXT HISTORY: Continued RIGHT hip pain. [facility] Other XR lumbar spine AP/LAT/FLX/EXT COMPARISON:None [facility] Other XR lumbar spine AP/LAT/FLX/EXT Lumbar lordosis is adequate. [facility] Other XR lumbar spine AP/LAT/FLX/EXT No acute lumbar spine fracture is identified. [facility] Other XR lumbar spine AP/LAT/FLX/EXT 5 mm L4-5 degenerative anterolisthesis. Diffuse osteopenia. [facility] Other XR lumbar spine AP/LAT/FLX/EXT Multilevel disc space narrowing most prevalent the L3-4 level. Endplate spurring. Lower lumbar [facility] Other XR lumbar spine AP/LAT/FLX/EXT hypertrophic facet changes. No hypermobility with flexion and extension views. [facility] Other XR lumbar spine AP/LAT/FLX/EXT No paraspinal abnormality seen. [facility] Other XR lumbar spine AP/LAT/FLX/EXT SI joints are maintained. [facility] Other XR lumbar spine AP/LAT/FLX/EXT XR/XR lumbar spine AP/LAT/FLX/EXT [facility] Other XR lumbar spine AP/LAT/FLX/EXT IMPRESSION: No hypermobility. 5 mm L4-5 anterolisthesis. Diffuse osteopenia. Degenerative change. [facility] Other XR lumbar spine AP/LAT/FLX/EXT Impression dictated by: Tonio Ken M.D.01/10/2021 3:59 PM [facility] Other XR lumbar spine AP/LAT/FLX/EXT Dictation Location: [place] [address] [facility] Other XR lumbar spine AP/LAT/FLX/EXT Transcribed By: [facility] 01/10/21 [facility] Other XR lumbar spine AP/LAT/FLX/EXT Dictated By: Tonio Ken DO 01/10/21 [facility] Other XR lumbar spine AP/LAT/FLX/EXT Signed By: [facility] Other XR lumbar spine AP/LAT/FLX/EXT 01/10/21 [facility] Other [facility] 11-20-19 19 [facility] * * *Final Report* * * * * * SEE BOTTOM OF REPORT FOR ADDENDED TEXT * * * DATE OF EXAM: Nov 19 2018 10:45AM [facility] 0621 - [facility] / PROCEDURE REASON: Abnormal findings on diagnostic imaging of breast * * * * Physician Interpretation * * * * RESULT: FINAL REPORT #[id number] - [facility] US BIOPSY BREAST LT #[id number] - [facility] STEREO BX BREAST LT #[id number] - [facility] ULTRASOUND GUIDED BIOPSY LEFT [...] attempt a stereotactic biopsy (after consultation with [place] technologists and the patient) to see if [...] Musa performed the entire procedure without an activities assistant. Correlation is made to exams dated: [...] Musa performed the entire procedure without an activities assistant. Correlation is made to exams dated: [...] location, eight cores were obtained using the Ed[employer]kame system. The patient received additional local anesthetic [...] necrosis. Diana momin/clarissa:11/24/2018 16:19:03 Attending Technologist(s): Sima Blackmon RT(R)(M), [facility] Sandblast Or Shotblast Equipment Tender(s): Virginia Rodriguez, [facility]; RT Ebonie(R)(M), [facility] Multiple national specialty organizations have released breast cancer screening guidelines for women at average risk for developing breast cancer - guidelines that are based on both evidence and opinion, yet differ on when to start and how often to screen for breast cancer. With representation from Breast Imaging, Internal Medicine, Women's Health, Family Medicine, and Medical/Surgical Oncology, the [facility] has carefully reviewed the data and [...] their providers when to stop screening mammograms. Airport Engineer: Clarissa Transcribe Date/Time: Nov 19 2018 10:41A Dictated by: DIANA MUSA MD This examination was interpreted and the report reviewed and electronically signed by: DIANA MUSA MD on Nov 19 2018 4:47PM EST This document has been addended by: DIANA MUSA MD on Nov 24 2018 4:19PM EST [id number] Normal [facility] STEREO BX BREAST LTon [facility] STEREO BX BREAST LT * * *Final Repor t* * * * * * SEE BOTTOM OF REPORT FOR ADDENDED TEXT * * * DATE OF EXAM: Nov 19 2018 10:41AM [facility] 0630 - [facility] STEREO BX BREAST LT / PROCEDURE REASON: Abnormal findings on diagnostic imaging of breast * * * * Physician Interpretation * * * * RESULT: FINAL REPORT #[id number] - [facility] US BIOPSY BREAST LT #[id number] - [facility] STEREO BX BREAST LT #[id number] - [facility] DIAG[facility]IC [facility] ULTRASOUND GUIDED BIOPSY LEFT [...] attempt a stereotactic biopsy (after consultation with [place] technologists and the patient) to see if [...] Musa performed the entire procedure without an activities assistant. Correlation is made to exams dated: [...] Musa performed the entire procedure without an activities assistant. Correlation is made to exams dated: [...] location, eight cores were obtained using the Reniac system. The patient received additional local anesthetic [...] momin/clarissa:11/24/2018 16:19:03 Attending Technologist(s): Sima Blackmon, RT(R)(M), [facility] Sandblast Or Shotblast Equipment Tender(s): Virginia Rodriguez, [facility]; Ana Clement, RT(R)(M), [facility] Multiple national specialty organizations have released breast cancer screening guidelines for women at average risk for developing breast cancer - guidelines that are based on both evidence and opinion, yet differ on when to start and how often to screen for breast cancer. With representation from Breast Imaging, Internal Medicine, Women's Health, Family Medicine, and Medical/Surgical Oncology, the [facility] has carefully reviewed the data and [...] their providers when to stop screening mammograms. Airport Engineer: Clarissa Transcribe Date/Time: Nov 19 2018 10:41A Dictated by: DIANA MUSA MD This examination was interpreted and the report reviewed and electronically signed by: DIANA MUSA MD on Nov 19 2018 4:47PM EST This document has been addended by: DIANA MUSA MD on Nov 24 2018 4:19PM EST [id number] Normal [facility] US BIOPSY BREAST LTon [facility] US BIOPSY BREAST LT * * *Final Repor t* * * * * * SEE BOTTOM OF REPORT FOR ADDENDED TEXT * * * DATE OF EXAM: Nov 19 2018 10:42AM [facility] 0597 - [facility] US BIOPSY BREAST LT / PROCEDURE REASON: Abnormal findings on diagnostic imaging of breast * * * * Physician Interpretation * * * * FINAL REPORT #[id number] - [facility] US BIOPSY BREAST LT #[id number] - [facility] STEREO BX BREAST LT #[id number] - [facility] DIAGNOSTIC [facility] ULTRASOUND GUIDED BIOPSY LEFT [...] attempt a stereotactic biopsy (after consultation with [place] technologists and the patient) to see if [...] Musa performed the entire procedure without an activities assistant. Correlation is made to exams dated: [...] Musa performed the entire procedure without an activities assistant. Correlation is made to exams dated: [...] location, eight cores were obtained using the Edúkame system. The patient received additional local anesthetic [...] momin/clarissa:11/24/2018 16:19:03 Attending Technologist(s): Sima Blackmon, RT(R)(M), [facility] Sandblast Or Shotblast Equipment Tender(s): Virginia Rodriguez, [facility]; Ana Clement RT(R)(M), [facility] Multiple national specialty organizations have released breast cancer screening guidelines for women at average risk for developing breast cancer - guidelines that are based on both evidence and opinion, yet differ on when to start and how often to screen for breast cancer. With representation from Breast Imaging, Internal Medicine, Women's Health, Family Medicine, and Medical/Surgical Oncology, the [facility] has carefully reviewed the data and [...] their providers when to stop screening mammograms. Airport Engineer: Clarissa Transcribe Date/Time: Nov 19 2018 10:41A Dictated by : DIANA MUSA MD This examination was interpreted and the report reviewed and electronically signed by: DIANA MUSA MD on Nov 19 2018 4:47PM EST This document has been addended by: DIANA MUSA MD on Nov 24 2018 4:19PM EST [id number] Normal [facility] SURGICAL PATHOLOGYon 019 SURGICAL PATHOLOGY Specimen originated from [facility] Specimen #: [id number] Submitting Physician: Diana Musa M.D. FINAL DIAGNOSIS [...] in two cassettes. Gross examination performed at [address] 11/19/2018 5:19:38 PM B. Received in [...] one cassette. Gross examination performed at [facility], [address] [place], [place] [id number] 11/19/2018 9:07:18 PM Date of Report: 11/20/2018 Date of Procedure: 11/19/2018 Date of Receipt: 11/19/2018 Submitted by: Diana Musa M.D. Location: [facility] Diagnostic interpretation performed at [facility], [address] [place] [address]. CLIA Number: [id number] [facility] Vital Signs Date Time Vital Sign Value Performing Clinician Facility 12-01-2024 09:53-0400 Body height 162.56 cm David Bolanos MD Work Phone: [facility] [place] [facility] 12-01-2024 09:53-0400 Body mass index (BMI) [Ratio] 29.4 kg/m2 David Bolanos MD Work Phone: [facility] [place] [facility] 12-01-2024 09:53-0400 Body weight 77.73 kg David Bolanos MD Work Phone: [facility] [place] [facility] 12-01-2024 09:53-0400 Diastolic blood pressure 80 mm[Hg] David Bolanos MD Work Phone: [facility] [place] [facility] 12-01-2024 09:53-0400 Heart rate 83 /min David Bolanos MD Work Phone: [facility] [place] [facility] 12-01-2024 09:53-0400 Respiratory rate 12 /min David Bolanos MD Work Phone: [facility] [place] [facility] 12-01-2024 09:53-0400 SaO2% (BldA) [Mass fraction] 97 % David Bolanos MD Work Phone: [facility] [place] [facility] 12-01-2024 09:53-0400 Systolic blood pressure 121 mm[Hg] David Bolanos MD Work Phone: [facility] [place] [facility] 09-28-2024 13:01-0400 Body height 162.56 cm David Bolanos MD Work Phone: [facility] [place] [facility] 09-28-2024 13:01-0400 Body mass index (BMI) [Ratio] 29.3 kg/m2 David Bolanos MD Work Phone: [facility] [place] [facility] 09-28-2024 13:01-0400 Body weight 77.56 kg David Bolanos MD Work Phone: [facility] [place] [facility] 09-28-2024 13:01-0400 Diastolic blood pressure 88 mm[Hg] David Bolanos MD Work Phone: [facility] [place] [facility] 09-28-2024 13:01-0400 Heart rate 85 /min David Bolanos MD Work Phone: [facility] [place] [facility] 09-28-2024 13:01-0400 Respiratory rate 16 /min David Bolanos MD Work Phone: [facility] [place] [facility] 09-28-2024 13:01-0400 SaO2% (BldA) [Mass fraction] 96 % David Bolanos MD Work Phone: [facility] [place] [facility] 09-28-2024 13:01-0400 Systolic blood pressure 142 mm[Hg] David Bolanos MD Work Phone: [facility] [place] [facility] 09-20-2024 10:43-0400 Body height 162.56 cm David Bolanos MD Work Phone: [facility] [place] [facility] 09-20-2024 10:43-0400 Body mass index (BMI) [Ratio] 29.2 kg/m2 David Bolanos MD Work Phone: [facility] [place] [facility] 09-20-2024 10:43-0400 Body temperature 98.3 [degF] David Bolanos MD Work Phone: [facility] [place] [facility] 09-20-2024 10:43-0400 Body weight 77.28 kg David Bolanos MD Work Phone: [facility] [place] [facility] 09-20-2024 10:43-0400 Diastolic blood pressure 77 mm[Hg] David Bolanos MD Work Phone: [facility] [place] [facility] 09-20-2024 10:43-0400 Heart rate 82 /min David Bolanos MD Work Phone: [facility] [place] [facility] 09-20-2024 10:43-0400 Systolic blood pressure 121 mm[Hg] David Bolanos MD Work Phone: [facility] [place] [facility] 06-29-2024 10:28-0400 Body mass index (BMI) [Ratio] 29.8 kg/m2 Gregg Blum MD Work Phone: [facility] 06-29-2024 10:28-0400 Body temperature 97.59 [degF] Gregg Blum MD Work Phone: [facility] 06-29-2024 10:28-0400 Body weight 78.4 kg Gregg Blum MD Work Phone: [facility] 06-29-2024 10:28-0400 Diastolic blood pressure 80 mm[Hg] Gregg Blum MD Work Phone: [facility] 06-29-2024 10:28-0400 Heart rate 84 /min Gregg Blum MD Work Phone: [facility] 06-29-2024 10:28-0400 Respiratory rate 18 /min Gregg Blum MD Work Phone: [facility] 06-29-2024 10:28-0400 SaO2% (BldA) [Mass fraction] 97 % Gregg Blum MD Work Phone: [facility] 06-29-2024 10:28-0400 Systolic blood pressure 134 mm[Hg] Gregg Blum MD Work Phone: [facility] 05-12-2024 08:27-0500 Body mass index (BMI) [Ratio] 30.04 kg/m2 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: [facility] 05-12-2024 08:27-0500 Body weight 79.38 kg 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: [facility] 05-12-2024 08:27-0500 Diastolic blood pressure 78 mm[Hg] 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: [facility] 05-12-2024 08:27-0500 Heart rate 67 /min 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: [facility] 05-12-2024 08:27-0500 SaO2% (BldA) [Mass fraction] 97 % 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: [facility] 05-12-2024 08:27-0500 Systolic blood pressure 124 mm[Hg] 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: [facility] 12-22-2023 08:42-0400 Body height 162.6 cm 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: [facility] 12-22-2023 08:42-0400 Body mass index (BMI) [Ratio] 30.24 kg/m2 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: [facility] 12-22-2023 08:42-0400 Body weight 79.92 kg 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: [facility] 12-22-2023 08:42-0400 Diastolic blood pressure 78 mm[Hg] 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: [facility] 12-22-2023 08:42-0400 Heart rate 81 /min 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: [facility] 12-22-2023 08:42-0400 SaO2% (BldA) [Mass fraction] 96 % 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: [facility] 12-22-2023 08:42-0400 Systolic blood pressure 145 mm[Hg] 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: [facility] 07-01-2023 14:01-0400 Body height 162.2 cm Gregg Blum MD Work Phone: [facility] 07-01-2023 14:01-0400 Body temperature 97.2 [degF] Gregg Blum MD Work Phone: [facility] 07-01-2023 14:01-0400 Body weight 78.4 kg Gregg Blum MD Work Phone: [facility] 07-01-2023 14:01-0400 Diastolic blood pressure 78 mm[Hg] Gregg Blum MD Work Phone: [facility] 07-01-2023 14:01-0400 Heart rate 90 /min Gregg Blum MD Work Phone: [facility] 07-01-2023 14:01-0400 Respiratory rate 16 /min Gregg Blum MD Work Phone: [facility] 07-01-2023 14:01-0400 SaO2% (BldA) [Mass fraction] 96 % Gregg Blum MD Work Phone: [facility] 07-01-2023 14:01-0400 Systolic blood pressure 130 mm[Hg] Gregg Blum MD Work Phone: [facility] 02-20-2023 11:45-0500 Body height 162.56 cm David Bolanos Other [facility] Other 02-20-2023 11:45-0500 Body mass index (BMI) [Ratio] 30.55 kg/m2 David Bolanos Other [facility] Other 02-20-2023 11:45-0500 Body weight 80.74 kg David Bolanos Other [facility] Other 02-20-2023 11:45-0500 Diastolic blood pressure 87 mm[Hg] David Bolanos Other [facility] Other 02-20-2023 11:45-0500 Systolic blood pressure 132 mm[Hg] David Bolanos Other [facility] Other 02-04-2023 13:45-0400 Body height 162.56 cm David Bolanos Other [facility] Other 02-04-2023 13:45-0400 Diastolic blood pressure 92 mm[Hg] David Bolanos Other [facility] Other 02-04-2023 13:45-0400 Systolic blood pressure 135 mm[Hg] David Bolanos Other [facility] Other 01-21-2023 14:30-0400 Body height 162.56 cm David Bolanos Other [facility] Other 01-21-2023 14:30-0400 Body mass index (BMI) [Ratio] 30.62 kg/m2 David Bolanos Other [facility] Other 01-21-2023 14:30-0400 Body weight 80.92 kg David Bolanos Other [facility] Other 01-21-2023 14:30-0400 Diastolic blood pressure 83 mm[Hg] David Bolanos Other [facility] Other 01-21-2023 14:30-0400 Systolic blood pressure 143 mm[Hg] David Bolanos Other [facility] Other 11-19-2022 11:30-0400 Body height 162.56 cm David Bolanos Other [facility] Other 11-19-2022 11:30-0400 Body mass index (BMI) [Ratio] 30.89 kg/m2 David Bolanos Other [facility] Other 11-19-2022 11:30-0400 Body weight 81.65 kg David Bolanos Other [facility] Other 11-19-2022 11:30-0400 Diastolic blood pressure 89 mm[Hg] David Bolanos Other [facility] Other 11-19-2022 11:30-0400 Systolic blood pressure 134 mm[Hg] David Bolanos Other [facility] Other 06-26-2022 10:30-0400 Body height 162.56 cm David Bolanos Other [facility] Other 06-26-2022 10:30-0400 Body mass index (BMI) [Ratio] 30.55 kg/m2 David Bolanos Other [facility] Other 06-26-2022 10:30-0400 Body weight 80.74 kg Davidcristhian Bolanos Other [facility] Other 06-26-2022 10:30-0400 Diastolic blood pressure 84 mm[Hg] David Luis Miguel Other [facility] Other 06-26-2022 10:30-0400 SaO2% (BldA) [Mass fraction] 97 % Davidcristhian Bolanos Other [facility] Other 06-26-2022 10:30-0400 Systolic blood pressure 126 mm[Hg] David Bolanos Other [facility] Other 2022 10:35-0500 Body height 162.2 cm Gregg Blum MD Work Phone: [facility] 2022 10:35-0500 Body temperature 97.81 [degF] Gregg Blum MD Work Phone: [facility] 2022 10:35-0500 Body weight 80.74 kg Gregg Blum MD Work Phone: [facility] 2022 10:35-0500 Diastolic blood pressure 74 mm[Hg] Gregg Blum MD Work Phone: [facility] 2022 10:35-0500 Heart rate 74 /min Gregg Blum MD Work Phone: [facility] 2022 10:35-0500 Respiratory rate 16 /min Gregg Blum MD Work Phone: [facility] 2022 10:35-0500 SaO2% (BldA) [Mass fraction] 97 % Gregg Blum MD Work Phone: [facility] 2022 10:35-0500 Systolic blood pressure 134 mm[Hg] Gregg Blum MD Work Phone: [facility] 06-06-2022 11:15-0500 Body height 162.56 cm David Bolanos Other [facility] Other 06-06-2022 11:15-0500 Body mass index (BMI) [Ratio] 30.72 kg/m2 David Bolanos Other [facility] Other 06-06-2022 11:15-0500 Body weight 81.19 kg David Bolanos Other [facility] Other 06-06-2022 11:15-0500 Diastolic blood pressure 88 mm[Hg] David Bolanos Other [facility] Other 06-06-2022 11:15-0500 SaO2% (BldA) [Mass fraction] 97 % David Bolanos Other [facility] Other 06-06-2022 11:15-0500 Systolic blood pressure 138 mm[Hg] David Bolanos Other [facility] Other 03-20-2021 15:45-0500 Body height 162.56 cm Elder Vigil Other [facility] Other 03-20-2021 15:45-0500 Body mass index (BMI) [Ratio] 31.24 kg/m2 Elder Vigil Other [facility] Other 03-20-2021 15:45-0500 Body weight 82.56 kg Elder Vigil Other [facility] Other 01-10-2021 15:00-0400 Body height 162.56 cm Keith Gaspar Other [facility] Other 01-10-2021 15:00-0400 Body mass index (BMI) [Ratio] 30.89 kg/m2 Keith Gaspar Other [facility] Other 01-10-2021 15:00-0400 Body weight 81.65 kg Keith Gaspar Other [facility] Other Encounters Encounter Date Encounter Type Care Provider Facility Start: 05-13-2025 ambulatory Sandeep Mora ty:[facility] [place] Start: 12-01-2024 End: 12-01-2024 ambulatory David Bolanos MD Work Phone: [facility] Work Phone: Start: 12-01-2024 End: 12-01-2024 Patient encounter procedure David Bolanos MD -[facility] Work Phone: Start: 09-28-2024 End: 09-28-2024 Patient encounter procedure Anahi Shelly Rg FARMWORKER [employer]GETABLE-[employer]TER-C -[facility] [place] Work Phone: Start: 09-20-2024 End: 09-20-2024 ambulatory David Bolanos MD Work Phone: [facility] Work Phone: Start: 09-20-2024 End: 09-20-2024 Patient encounter procedure David Bolanos MD Work Phone: [facility] Work Phone: Start: 08-09-2024 End: 08-09-2024 ambulatory David Bolanos MD Work Phone: [facility] Work Phone: Start: 08-09-2024 End: 08-09-2024 Discharged Recurring David Bolanos MD Work Phone: [facility] Start: 06-29-2024 End: 06-29-2024 ambulatory GREGG BLUM Facility:[facility] Start: 06-29-2024 End: 06-29-2024 Office outpatient visit 15 minutes Gregg Blum MD Work Phone: Hematology/Oncology Comment on above: Malignant neoplasm o f upper-outer quadrant of left breast in female, estrogen receptor negative (HCC) (Primary Dx) Start: 05-20-2024 End: 05-20-2024 Patient encounter procedure David Bolanos MD Work Phone: [facility] Work Phone: Start: 05-17-2024 Non-patient / Non-visit David Bolanos MD Work Phone: [facility] Work Phone: Start: 05-17-2024 Non-patient / Non-visit David Bolanos MD Work Phone: [facility] Work Phone: Start: 05-12-2024 End: 05-12-2024 Bamboo flowsheet 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: [facility] Start: 05-12-2024 End: 05-12-2024 Bamboo flowsheet 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: [facility] [place] Start: 05-12-2024 End: 05-12-2024 Office outpatient visit 25 minutes 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: [facility] [place] Comment on above: MCI (mild cognitive impairment) (Primary Dx); JEFFREY (obstructive sleep apnea); Family history of Alzheimer's disease Start: 05-12-2024 End: 05-12-2024 ambulatory ANAHI RG Not Available Start: 05-10-2024 End: 05-10-2024 ambulatory Sandeep HILL Facility:[facility] [place] Start: 04-26-2024 End: 04-26-2024 Tejas Austin MD Work Phone: [facility] Start: 04-26-2024 End: 04-26-2024 Tejas Austin MD Work Phone: [facility] Start: 04-26-2024 End: 04-26-2024 ambulatory JELENA AUSTIN Not Available Start: 04-26-2024 End: 04-26-2024 Office outpatient visit 15 minutes Jelena Austin MD Work Phone: [facility] Comment on above: Seborrheic keratosis (Primary Dx); Lentigines; Seborrheic keratosis, inflamed Start: 12-22-2023 End: 12-22-2023 Office outpatient visit 15 minutes 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: [facility] [place] [address] Comment on above: MCI (mild cognitive impairment) (Primary Dx); JEFFREY (obstructive sleep apnea); Family history of Alzheimer's disease Start: 12-22-2023 End: 12-22-2023 ambulatory ANAHI RG Not Available Start: 12-02-2023 End: 12-02-2023 ambulatory Za X Orzech Facility:[facility] [place] Start: 12-01-2023 Patient encounter procedure David Bolanos MD Work Phone: [facility] Start: 11-03-2023 End: 11-03-2023 ambulatory ANAHI RG Not Available Start: 10-28-2023 End: 10-28-2023 ambulatory YINKA HARP Not Available Start: 10-21-2023 End: 10-21-2023 ambulatory Sandeep HILL Facility:[facility] Start: 10-14-2023 End: 10-14-2023 ambulatory Sandeep HILL Facility:[facility] [place] Start: 09-23-2023 End: 09-23-2023 ambulatory Za X Orzech Facility:[facility] [place] Start: 09-01-2023 End: 09-01-2023 ambulatory YINKA HARP Not Available Start: 08-26-2023 End: 08-26-2023 ambulatory Za X Orzech Facility:[facility] Start: 07-02-2023 ambulatory Unique Santos rejijay [facility] Work Phone: [facility] Start: 07-01-2023 End: 07-01-2023 ambulatory Gregg Blum MD Work Phone: Hematology/Oncology Comment on above: Malignant neoplasm o f upper-outer quadrant of left breast in female, estrogen receptor negative (HCC) (Primary Dx) Start: 07-01-2023 End: 07-01-2023 Patient encounter procedure Gregg Blum MD Work Phone: [facility] Start: 02-25-2023 End: 02-25-2023 ambulatory David Bolanos Other [facility] Other Start: 02-25-2023 Telephone encounter David Bolanos [facility] Start: 02-20-2023 End: 02-20-2023 ambulatory David Bolanos Other [facility] Other Start: 02-20-2023 Office outpatient vi sit 25 minutes David Bolanos [facility] Start: 02-04-2023 (Televisit) Televisit David Bolanos [facility] Start: 02-04-2023 End: 02-04-2023 ambulatory David Bolanos Other [facility] Other Start: 02-04-2023 Telephone encounter David Bolanos [facility] Start: 01-21-2023 End: 01-21-2023 ambulatory David Bolanos Other [facility] Other Start: 01-21-2023 Office outpatient vi sit 15 minutes David Bolanos [facility] Start: 11-27-2022 End: 11-27-2022 ambulatory David Bolanos Other [facility] Other Start: 11-27-2022 Telephone encounter David Bolanos [facility] Start: 11-19-2022 End: 11-19-2022 ambulatory David Bolanos Other [facility] Other Start: 11-19-2022 Patient encounter procedure David Bolanos [facility] Start: 08-05-2022 End: 08-05-2022 ambulatory David Bolanos Other [facility] Other Start: 08-05-2022 Telephone encounter David Bolanos [facility] Start: 07-31-[address] DAVID BOLANOS Facil ity:[facility] Start: 07-02-2022 End: 07-02-2022 ambulatory David Bolanos Other [facility] Other Start: 07-02-2022 Telephone encounter David Bolanos [facility] Start: 06-26-2022 End: 06-27-[address] DAVID BOLANOS [facility] Other Start: 06-26-2022 Office outpatient vi sit 15 minutes David Bolanos [facility] Start: 2022 End: 2022 ambulatory Gregg Blum MD Work Phone: Hematology/Oncology Comment on above: Malignant neoplasm o f upper-outer quadrant of left breast in female, estrogen receptor negative (HCC) (Primary Dx) Start: 2022 End: 2022 Patient encounter procedure Gregg Blum MD Work Phone: [facility] Start: 06-06-2022 End: 06-06-2022 ambulatory David Bolanos Other [facility] Other Start: 06-06-2022 Office outpatient vi sit 15 minutes David Bolanos [facility] Start: 05-16-2022 End: 05-17-[address] EM SERNA . Facility:[facility] Start: 05-01-2022 End: 05-01-2022 ambulatory MD David Bolanos Work Phone: [facility] Work Phone: Start: 05-01-2022 End: 05-01-2022 Patient encounter procedure MD David Bolanos Work Phone: [facility] Work Phone: Start: 04-25-2022 Encounter for preprocedural laboratory examination DR EM SERNA . [facility] Start: 04-18-2022 End: 05-03-[address] [...] 12-19-2021 Adult health examination Radha Bolanos Other [facility] Other Start: 12-19-2021 Gynecological examination normal David Bolanos Other [facility] Other Start: 12-19-2021 Pre-procedure evalua tion check David Bolanos Other [facility] Other Start: 11-15-2021 Encounter for genera l adult medical examination without abnormal findings DR DAVID BOLANOS [facility] Start: 11-12-2021 End: 11-13-[address] DAVID BOLANOS Facility:[facility] Start: 11-12-2021 End: 11-13-2021 Encounter for general adult medical examination without abnormal findings DR DAVID BOLANOS Facility:[facility] Start: 10-09-2021 End: 10-10-[address] VANESSA TORRES . Facility:[facility] Start: 09-03-2021 End: 09-03-[address] DAVID BOLANOS Facility:[facility] Start: 05-10-2021 End: 05-10-2021 ambulatory Elder Vigil Other [facility] Other Start: 05-10-2021 Office outpatient vi sit 15 minutes Elder Vigil [facility] [place] Start: 03-22-2021 End: 03-22-2021 ambulatory Elder Vigil Other [facility] Other Start: 03-22-2021 Telephone encounter Elder TURNER [facility] [place] Start: 03-21-2021 End: 03-21-2021 ambulatory Elder Vigil Other [facility] Other Start: 03-21-2021 Telephone encounter Elder Vigil [facility] [place] Start: 03-20-2021 End: 03-20-2021 ambulatory Elder Vigil Other [facility] Other Start: 03-20-2021 Office outpatient vi sit 15 minutes Elder Vigil [facility] [place] Start: 02-27-2021 (Procedure) Short Elder Vigil [facility] Start: 02-27-2021 End: 02-27-2021 ambulatory Elder Vigil Other [facility] Other Start: 01-17-2021 Office outpatient vi sit 25 minutes Elder Vigil [facility] [place] Start: 01-10-2021 Office outpatient vi sit 15 minutes Keith BROTHERS [facility] Procedures Date Procedure Procedure Detail Performing Clinician Start: 04-26-2024 CRYOTHERAPY SKIN LESION Jelena Austin MD Work Phone: Start: 05-01-2022 Plain chest X-ray MD Kelle Bolanos Work Phone: Start: 07-20-2019 Screening for malign ant neoplasm of breast David Bolanos Other Start: 11-19-2018 Mammography Anahi loza NP Work Phone: End: 08-11-2019 Depression screening David Luis Miguel Other Screening for malign ant neoplasm of breast David Luis Miguel Other Plan of Treatment Date Care Activity Detail Author Start: 2028 RSV Vaccine (1 - 1-d ose 75+ series) RSV Vaccine (1 - 1-dose 75+ series) [facility] Start: 04-26-2025 End: 04-26-2025 Patient encounter procedure 04/26/2025 10:50 AM EST Office Visit [facility] [address] [place] [address] Jelena Austin MD [address] [place], [place] [id number] [facility] Start: 09-28-2024 End: 09-28-2024 Patient encounter procedure 09/28/2024 1:00 PM EDT Office Visit [facility] [address] [place] [address] Anahi Rg NP [address] [place] [phone] [facility] Start: 09-20-2024 Patient referral [facility] Work Phone: Start: 07-20-2024 Covid-19 Vaccine ( season) Covid-19 Vaccine ( season) [facility] Start: 06-14-2024 End: 06-14-2024 Patient encounter procedure [facility] [place] [address] Start: 05-12-2024 End: 05-12-2024 Patient encounter procedure 05/12/2024 8:40 AM EST Office Visit [facility] [address] [place] [phone] Anahi Rg NP [address] [place] [phone] Arrived [facility]AL[facility] Comment on above: Arrived Start: 04-26-2024 End: 04-26-2024 Patient encounter procedure 04/26/2024 10:05 AM EST Office Visit [facility] [address] [place] [phone] Jelena Austin MD [address] [place] [address] [facility] Start: 04-14-2024 Advance Directive Discussion Advance Directive Discussion [facility] Start: 12-14-2023 Influenza vaccination Influenza Vacc ine (#1) [facility] Start: 04-14-2023 Advance Directive Discussion Advance Directive Discussion [facility] Start: 04-14-2023 Depression Assessment [facility] Start: 12-13-2022 Influenza vaccination Influenza Vacc ine (#1) [facility] Start: 04-14-2022 ADVANCE DIRECTIVE DISCUSSION ADVANCE DIRECTIVE DISCUSSION [facility] Start: 04-14-2022 [facility] Start: 02-18-2022 DIABETES SCREEN DIABETES SCREEN [facility] Start: 02-18-2022 Diabetes Screening Diabetes Screenin g [facility] Start: 11-09-2021 Pneumococcal Vaccine : 50+ (2 of 2 - PCV) Pneumococcal Vaccine: 50+ (2 of 2 - PCV) [facility] Start: 11-09-2021 Pneumococcal Vaccine : 65+ (2 of 2 - PCV) Pneumococcal Vaccine: 65+ (2 of 2 - PCV) [facility] Start: 11-09-2021 Pneumococcal Vaccine : 65+ Years (2 of 2 - PCV) Pneumococcal Vaccine: 65+ Years (2 of 2 - PCV) [facility] Start: 11-09-2021 PNEUMOCOCCAL: 65+ (2 - PCV) PNEUMOCOCCAL: 65+ (2 - PCV) [facility] Start: 11-20-2019 Screening for malign ant neoplasm of breast Mammogram [facility] Start: 10-29-2019 Screening for malign ant neoplasm of breast Mammogram Screening [facility] Start: 2018 BONE DENSITY BONE DENSITY [facility] Start: 2018 Screening for osteoporosis Bone Density Screening [facility] Start: 2013 RSV Vaccine (1 - 1-d ose 60+ series) RSV Vaccine (1 - 1-dose 60+ series) [facility] Start: 1998 COLOGUARD (FIT-DNA) COLOGUARD (FIT-D NA) [facility] Start: 1998 Colonoscopy COLONOSCOPY [facility] Start: 1998 COLORECTAL CANCER SCREENING COLORECTAL CANCER SCREENING [facility] Start: [address] COLONOGRAPHY [facility] Start: 1998 FECAL OCCULT BLOOD FECAL OCCULT BLOO D [facility] Start: 1998 Lipid panel Lipid Screening [facility] Start: 1998 LIPID SCREEN LIPID SCREEN [facility] Start: 1998 Screening for malign ant neoplasm of colon [facility] Start: 1998 SIGMOIDOSCOPY SIGMOIDOSCOPY [facility] Start: 1993 Mammography MAMMOGRAM [facility] Start: 1972 Urine microalbumin profile [facility] Start: 06-14-1971 Anxiety Screening Anxiety Screening [facility] Start: 06-14-1971 Depression Screening Depression Scre ening [facility] Start: 06-14-1971 HEPATITIS C SCREENING HEPATITIS C [facility] Start: 06-14-1971 Hepatitis C screening Hepatitis C [facility] Start: 1953 Screening for malign ant neoplasm of colon [facility] 2000 panel - Serum or Plasma [facility] Patient referral [facility] Work Phone: XR Foot - right GE 3 Views [facility] Immunizations Immunization Date Immunization Notes Care Provider Nu mei 01-29-2024 influenza, high dose seasonal, preservative-free David Bolanos MD Work Phone: [facility] 01-21-2023 influenza, high dose seasonal, preservative-free David Bolanos Other [facility] Other 01-21-2023 influenza virus vaccine, unspecified formulation 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: [facility] 07-30-2022 tetanus and diphther ia toxoids, adsorbed, preservative free, for adult use (5 Lf of tetanus toxoid and 2 Lf of diphtheria toxoid) David Bolanos Other [facility] Other 07-30-2022 tetanus and diphther ia toxoids, adsorbed, preservative free, for adult use (2 Lf of tetanus toxoid and 2 Lf of diphtheria toxoid) David Bolanos MD Work Phone: [facility] 01-23-2022 COVID-19 Pfizer (Pediatric) David Bolanos Other [facility] 01-03-2022 influenza (aIIV4) vaccine, age 65+ yr, quadrivalent, PF (FLUAD QUAD) Gregg Blum MD Work Phone: [facility] 01-03-2022 influenza virus vaccine, split virus (incl. purified surface antigen) David Bolanos Other [facility] Other 01-03-2022 influenza virus vaccine, unspecified formulation Gregg Blum MD Work Phone: [facility] 01-22-2021 COVID-19 Vaccine Pfi zer - Documentation Purposes Only David Bolanos Other [facility] 01-10-2021 influenza virus vaccine, split virus (incl. purified surface antigen) David Bolanos Other [facility] Other 01-10-2021 influenza virus vaccine, unspecified formulation David Bolanos MD Work Phone: [facility] 11-09-2020 pneumococcal polysaccharide vaccine, 23 valent Gregg Blum MD Work Phone: [facility] 07-19-2020 Kenalog -40 mg Keith Gaspar Other [facility] Other 06-16-2020 COVID-19 Vaccine Pfi zer - Documentation Purposes Only David Bolanos Other [facility] 05-26-2020 COVID-19 Vaccine Pfi zer - Documentation Purposes Only David Bolanos Other [facility] 03-07-2020 zoster vaccine recombinant Gregg Blum MD Work Phone: [facility] 12-21-2019 influenza virus vaccine, split virus (incl. purified surface antigen) David Bolanos Other [facility] [facility] Other 12-21-2019 influenza virus vaccine, unspecified formulation David Bolanos MD Work Phone: [facility] 11-09-2019 pneumococcal conjuga te vaccine, 13 valent David Bolanos Other [facility] 11-09-2019 zoster vaccine recombinant Gregg Blum MD Work Phone: [facility] 02-14-2009 novel [id number], preservative-free, injectable Gregg Blum MD Work Phone: [facility] Payers Date Payer Category Payer Self-pay [id number] 2024 Unknown [id number] 2018 Medicare [id number] 2018 Private Health Insurance [id number] 2018 Unknown [id number] 1959 Medicare [id number] 2.1 [id number] 1959 Unknown [id number] 1953 Unknown [id number] 2.16.84 0.1.693770.3.579.2.593 1953 Unknown [id number] 2.16.84 0.1.826720.3.579.2.593 1953 Unknown [id number] 2.16.84 0.1.767823.3.579.2.593 1953 Unknown [id number] 2.16.84 0.1.730393.3.579.2.593 1953 Unknown [id number] 2.16.84 0.1.392844.3.579.2.593 1953 Unknown [id number] 2.16.84 0.1.399199.3.579.2.593 1953 Unknown [id number] 2.16.84 0.1.707639.3.579.2.593 1953 Unknown [id number] 2.16.84 0.1.510943.3.579.2.593 1953 Unknown [id number] 2.16.84 0.1.362183.3.579.2.593 1953 Unknown [id number] 2.16.84 0.1.809450.3.579.2.593 1953 Unknown [id number] 2.16.84 0.1.993517.3.579.2.593 1953 Unknown [id number] 2.16.84 0.1.639179.3.579.2.593 1953 Unknown [id number] 2.16.84 0.1.763928.3.579.2.593 1953 Unknown [id number] 2.16.84 0.1.258153.3.579.2.593 1953 Unknown [id number] 2.16.84 0.1.513430.3.579.2.593 1953 Unknown [id number] 2.16.84 0.1.329533.3.579.2.593 1953 Unknown [id number] 2.16.8 40.1.632534.3.579.2.727 1953 Unknown [id number] 2.16.8 40.1.309110.3.579.2.727 1953 Unknown [id number] 2.16.8 40.1.494648.3.579.2.727 1953 Unknown [id number] 2.16.8 40.1.323320.3.579.2.727 1953 Unknown [id number] 2.16.8 40.1.878297.3.579.2.727 1953 Unknown [id number] 2.16.8 40.1.534220.3.579.2.727 1953 Unknown [id number] 2.16.8 40.1.095879.3.579.2.727 1953 Unknown [id number] 2.16.84 0.1.915982.3.579.2.1259 1953 Unknown [id number] 2.16.84 0.1.886892.3.579.2.1259 1953 Unknown [id number] 2.16.84 0.1.295073.3.579.2.1259 1953 Unknown [id number] 2.16.84 0.1.229539.3.579.2.1259 1953 Unknown [id number] 2.16.84 0.1.929402.3.579.2.1259 1953 Unknown [id number] 2.16.84 0.1.668935.3.579.2.1259 Unknown [id number] 2.16.8 40.1.246450.3.579.2.531 Social History Date Type Detail Facility Start: 07-01-2023 End: 06-29-2024 Sex Assigned At [facility] Start: 1955 Sex Assigned At Female [facility] Start: 03-19-2012 End: 09-20-2024 Tobacco smoking status NHIS Never smoked tobacco [facility] Start: 03-19-2012 End: 04-24-2023 Tobacco use and exposure Smokeless tobacco non-user [facility] Start: 06-14-2021 End: 06-29-2024 Alcohol intake Ex-drinker (finding) [facility] Start: 1955 Sex Assigned At Not on file [facility] Start: 07-01-2023 End: 06-29-2024 History of Social function [facility] Adult Depression Screening Assessment 0 [facility] Start: 12-22-2023 End: 05-12-2024 Alcoholic beverage intake Lifetime non-drinker (finding) [facility] Start: 05-09-2023 Gender identity Identifies as female gender (finding) [facility] Start: 05-09-2023 Sexual orientation Heterosexual (finding) [facility] Tobacco smoking stat us NHIS Unknown if ever smoked [facility] Work Phone: Start: 08-09-2024 End: 09-20-2024 Sex Female (finding) [facility] Functional Status Date Assessment Result Facility 09-21-2014 Are you deaf, or do you have serious difficulty hearing No 09/21/2014 11:12 AM Yady Alves No [facility] 09-21-2014 Are you blind, or do you have serious difficulty seeing, even when wearing glasses No 09/21/2014 11:12 AM Yady Alves No [facility] 09-21-2014 Do you have serious difficulty walking or climbing stairs No 09/21/2014 11:12 AM Yady Alves No [facility] 09-21-2014 Do you have difficul ty dressing or bathing No 09/21/2014 11:12 AM Yady Alves [facility] 09-21-2014 Because of a physica l, mental, or emotional condition, do you have difficulty doing errands alone such as visiting a physician's office or shopping No 09/21/2014 11:12 AM Yady Alves [facility] Mental Status Date Assessment Result Facility 09-21-2014 Because of a physica l, mental, or emotional condition, do you have serious difficulty concentrating, remembering, or making decisions No 09/21/2014 11:12 AM EDT Yady Alonso [facility] Clinical Notes 01-10-2021 to 09-20-2024 Note Date & Type Note Facility 09-20-2024 Evaluation note Diagnosis Onset Date Resolution Foot ulcer due to secondary DM inactive September 20, 2024 10:42am Family history of Alzheimer disease chronic September 28 12:58pm Mild cognitive impairment chronic September 28, 2024 12:58pm Obstructive sleep apnea of adult chronic September 28, 2024 12:58pm Alzheimer's disease, unspecified acute December 01 9:51am Hyperlipemia acute December 01, 2024 9:51am Hypertension acute December 01, 2024 9:51am Medicare annual wellness visit, subsequent acute December 01 9:51am [facility] Work Phone: [phone] 556-231303-17-2025 NoteHNO ID: [id number] Author: GREGG BLUM MD Service: ? Author Type: Physician Type: Progress Notes Filed: 06/30/2024 09:48 Note Text: PATIENT NAME: Parth Powers DATE: 06/29/2024 PRIMARY CARE PHYSICIAN: David Bolanos MD OTHER PHYSICIANS: Dr. Dejesus, Dr. Tash Quesada, Dr. Serna (Pain Management) Portions of this encounter note have been copied from the note from 07/01/2023 and has been updated where appropriate, and reflect my current medical decision making from today. CC: This is a 69 year old female with a history of breast cancer, seen for scheduled follow-up. INTERIM HISTORY: Since the patient's last visit here she has had no significant medical changes. Overall she feels well with no particular complaints. She has noticed no changes in her chest wall. No unusual pain or other systemic symptoms. MEDICATIONS: denosumab (PROLIA SUBCUTANEOUS) Inject subcutaneously. tiZANidine (ZANAFLEX) 4 mg tablet Take 4 mg by mouth daily at bedtime. donepezil (ARICEPT) 10 mg tablet Take 10 mg by mouth daily at bedtime. Melatonin 5 mg cap Take by mouth. aspirin, enteric coated (ASPIRIN, ENTERIC COATED) 81 mg EC tablet Take 81 mg by mouth once daily. cholecalciferol (VITAMIN D-3) 50 mcg (2,000 unit) tablet Take 2,000 Units by mouth once daily. ascorbic acid (VITAMIN C ORAL) Take by mouth once daily. glucosamine/chondroitin/C/Bin (GLUCOSAMINE 1500 COMPLEX ORAL) Take 1,500 mg by mouth once daily. Fish Oil-Bland-3 Fatty Acids (FISH OIL) 340-1,000 mg cap Take 1 capsule by mouth once daily. niacin 500 mg CR capsule Take 500 mg by mouth daily at bedtime. magnesium oxide 400 mg magnesium tab Take 400 mg by mouth daily at bedtime. calcium carbonate/vitamin D3 (CALCIUM 600 + D,3, ORAL) losartan (COZAAR) 25 mg tablet Take 25 mg by mouth once daily. alpha tocopheryl acetate (VITAMIN E) 400 unit capsule Take 400 Units by mouth once daily. VITAMIN B COMPLEX ORAL Take by mouth once daily. BIOTIN ORAL Take by mouth. A-CYSTEINE/ARG ZN/GLUT/MV-MN (RESTORE-X ORAL) Take by mouth. FERROUS SULFATE (IRON ORAL) Take 65 mg by mouth three times a week. 3 days a week ACETAMINOPHEN (TYLENOL 8 HOUR ORAL) Take 2 tablets by mouth as needed. multivitamin tablet Take 1 tablet by mouth once daily. pravastatin (PRAVACHOL) 40 mg tablet Take 1 tablet by mouth daily at bedtime. PNV no.153/FA/om3/dha/epa/fish ( GUMMIES ORAL) Take by mouth once daily. Alpha Lipoic Acid 100 mg cap Take by mouth once daily. prasterone, DHEA, (DHEA ORAL) Take by mouth once daily. alendronate (FOSAMAX) 35 mg tablet Take 35 mg by mouth one time a week. ALLERGIES: Dilaudid [Hydromorphone (Bulk)]; Latex, Natural Rubber; [...] left mastectomy area PHYSICAL EXAM: Vitals: BP 134/80 Pulse 84 Temp 36.4 ?C (97.6 ?F) (Temporal) Resp 18 Wt 78.4 kg (172 lb 13.5 oz) SpO2 97% BMI 29.80 kg/m? General appearance: well appearing, [...] Heart: Negative. RRR without murmur, gallop, or r (more content not included)... [facility]03-17-2025 History of Present illness Narrative* Gregg Blum MD - 06/28/2024 2:04 PM EDT PATIENT NAME: Parth Powers DATE: 06/29/2024 PRIMARY CARE PHYSICIAN: David Bolanos MD OTHER PHYSICIANS: Dr. Dejesus, Dr. Tash Quesada, Dr. Serna (Pain Management) Portions of this encounter note have been copied from the note from 07/01/2023 and has been updated where appropriate, and reflect my current medical decision making from today. CC: This is a 69 year old female with a history of breast cancer, seen for scheduled follow-up. INTERIM HISTORY: Since the patient's last visit here she has had no significant medical changes. Overall she feels well with no particular complaints. She has noticed no changes in her chest wall. Nounusual pain or other systemic symptoms. MEDICATIONS: denosumab (PROLIA SUBCUTANEOUS) Inject subcutaneously. tiZANidine (ZANAFLEX) 4 mg tablet Take 4 mg by mouth daily at bedtime. donepezil (ARICEPT) 10 mg tablet Take 10 mg by mouth daily at bedtime. Melatonin 5 mg cap Take by mouth. aspirin, enteric coated (ASPIRIN, ENTERIC COATED) 81 mg EC tablet Take 81 mg by mouth once daily. cholecalciferol (VITAMIN D-3) 50 mcg (2,000 unit) tablet Take 2,000 Units by mouth once daily. ascorbic acid (VITAMIN C ORAL) Take by mouth once daily. glucosamine/chondroitin/C/Bin (GLUCOSAMINE 1500 COMPLEX ORAL) Take 1,500 mg by mouth once daily. Fish Oil-Bland-3 Fatty Acids (FISH OIL) 340-1,000 mg cap Take 1 capsule by mouth once daily. niacin 500 mg CR capsule Take 500 mg by mouth daily at bedtime. magnesium oxide 400 mg magnesium tab Take 400 mg by mouth daily at bedtime. calcium carbonate/vitamin D3 (CALCIUM 600 + D,3, ORAL) losartan (COZAAR) 25 mg tablet Take 25 mg by mouth once daily. alpha tocopheryl acetate (VITAMIN E) 400 unit capsule Take 400 Units by mouth once daily. VITAMIN B COMPLEX ORAL Take by mouth once daily. BIOTIN ORAL Take by mouth. A-CYSTEINE/ARG ZN/GLUT/MV-MN (RESTORE-X ORAL) Take by mouth. FERROUS SULFATE (IRON ORAL) Take 65 mg by mouth three times a week. 3 days a week ACETAMINOPHEN (TYLENOL 8 HOUR ORAL) Take 2 tablets by mouth as needed. multivitamin tablet Take 1 tablet by mouth once daily. pravastatin (PRAVACHOL) 40 mg tablet Take 1 tablet by mouth daily at bedtime. PNV no.153/FA/om3/dha/epa/fish ( GUMMIES ORAL) Take by mouth once daily. Alpha Lipoic Acid 100 mg cap Take by mouth once daily. prasterone, DHEA, (DHEA ORAL) Take by mouth once daily. alendronate (FOSAMAX) 35 mg tablet Take 35 mg by mouth one time a week. ALLERGIES: Dilaudid [Hydromorphone (Bulk)]; Latex, Natural Rubber; [...] left mastectomy area PHYSICAL EXAM: Vitals: BP 134/80 Pulse 84 Temp 36.4 C (97.6 F) (Temporal) Resp 18 Wt 78.4 kg (172 lb 13.5 oz) SpO2 97% BMI 29.80 kg/m General appearance: well appearing, [...] receptor negative Stage IA (T1mic, N0, M0) ER/MA negative, HER-2 negative left-sided breast cancer diagnosed [...] and breast MRIs. She has undergone multiple breast biopsies, all of which were negative for malignancy. Ultimately the patient elected to undergo bilateral mastectomies on 02/19/2019, and pathology on both breasts were negative. She has had no evidence of recurrence, and currently has no evidence of disease. At this time would recommend continued routine observation to include yearly examination, and staging as indicated if suspicious signs or symptoms develop. Now that she is more than 10 years out fromdiagnosis she will follow-up with her PCP for further management. We did not schedule a return visit here, but would be happy to see her in the future if we can be of assistance. Gregg Blum MD CC: David Bolanos MD [facility] Evaluation note* Diagnosis Onset Date Resolution Status Admit Date COVID-19 acute May 20, 2024 1:23pm Sinusitis, acute maxillary acute May 20, 2024 1:23pm [facility] Work Phone: [phone] History of Present illness Narrative* Anahi Rg NP - 05/12/2024 8:40 AM EST Images from the original note were not included. Chief Complaint Patient presents with Memory Loss Subjective Prath Powers is a 68 y.o. female. History of Present Illness The patient presents today for follow-up appointment for memory. She believes her memory and cognitive function have been generally unchanged/stable since the prior appointment on 12/22/2023. She admits she does continue to have some difficulty with short-term memory. She believes her long-term memory is good. She will misplace objects around the home intermittently. She also admits to some difficulty with numbers. When asked to elaborate this, the patient then states she has some difficulty recalling dates of events. She does utilize her phone and a calendar to help with this. She is flustered today because she had written in her calendar that she had a neurology appointment today but was told by the front desk monitor that her next follow-up appointment was supposed to be on 06/14/2024. The patient continues to live at home with her . She is independent with all ADLs, medication management, and driving. She denies missing doses of her prescriptions or taking more than prescribed. She uses a pill organizer. She denies any safety concerns in regard to driving and denies getting lost. She denies wandering, hallucinations, agitation, or falls. She denies leaving heat sources on accidentally. She denies feelings of anxiety or depression. She sleeps well and uses her CPAP nightly when asleep. She denies any further new concerns. Review of Systems Constitutional: Negative for appetite change, chills, fatigue, fever and unexpected weight change. HENT: Negative for trouble swallowing and voice change. Eyes: Negative for visual change, double vision or loss of vision Respiratory: Negative for cough, shortness of breath and wheezing. Cardiovascular: Negative for chest pain and palpitations. Gastrointestinal: Negative for abdominal pain, blood in stool, nausea and vomiting. Musculoskeletal: Negative for arthralgias, gait problem and myalgias. Neurological: Negative for dizziness, tremors, seizures, syncope, facial asymmetry, speech difficulty, weakness, light-headedness, numbness and headaches. Positive for memory impairment Psychiatric/Behavioral: Positive for confusion. Negative for hallucinations and suicidal ideas. Thepatient is not nervous/anxious. Home Medication List acetaminophen (Tylenol 8 Hour) 650 MG ER tablet, Take 650 mg by mouth every 8 (eight) hours if needed for mild pain Do not crush, chew, or split ALPHA LIPOIC ACID PO, Take by mouth Ascorbic Acid (vitamin C) 1000 MG tablet, Take 1,000 mg by mouth in the morning biotin 5 MG capsule, Take 5 mg by mouth in the morning., Disp: , Rfl: calcitriol (Rocaltrol) 0.25 MCG capsule, Take 0.25 mcg by mouth in the morning calcium acetate (Phoslo) 667 MG capsule, Take 1,334 mg by mouth in the morning and 1,334 mg at noonand 1,334 mg in the evening. Take with meals cholecalciferol (Vitamin D-3) 50 MCG (2000 UT) tablet, Take 2,000 Units by mouth in the morning donepezil (Aricept) 10 MG tablet, Take 1 tablet (10 mg) by mouth at bedtime, Disp: 30 tablet, Rfl: 5 donepezil (Aricept) 10 MG tablet, Take 1 tablet (10 mg) by mouth at bedtime, Disp: 90 tablet, Rfl: 2 ferrous fumarate-vitamin C ER (Melissa-Sequeles 65-25), Take 1 tablet by mouth in the morning. Take with meals. Do not crush, chew, or split losartan (Cozaar) 25 MG tablet, Take 25 mg by mouth Daily Melatonin 1 MG capsule, Take by mouth at bedtime niacin (Niaspan) 500 MG ER tablet, Take 500 mg by mouth at bedtime Do not crush, chew, or split omega-3 (Fish Oil) 1000 MG capsule, Take 1 capsule by mouth in the morning pravastatin (Pravachol) 40 MG tablet, Take 40 mg by mouth at bedtime pyridoxine (Vitamin B-6) 25 MG tablet, Take 25 mg by mouth in the morning tiZANidine (Zanaflex) 4 MG capsule, Take 4 mg by mouth 3 (three) times a day as needed for muscle spasms vitamin E 180 MG (400 UNIT) capsule, Take 180 mg by mouth in the morning Past Medical History: Diagnosis Date BPPV (benign paroxysmal positional vertigo) Breast cancer (CMS/HCC) H/O varicose veins HLD (hyperlipidemia) (CMS/HCC) HTN (hypertension) (CMS/HCC) Inflammatory and toxic neuropathy (CMS/HCC) Muscle cramps Neuropathy Obstructive sleep apnea Osteoporosis (CMS/HCC) Pain in limb Paresthesia Peripheral neuropathy Polyneuropathy Restless leg Small fiber neuropathy Past Surgical History: Procedure Laterality Date ADENOIDECTOMY BREAST LUMPECTOMY Left 2012 COLONOSCOPY 2007, 2018 COLPORRHAPHY 1989 A&P repair DILATION AND CURETTAGE OF UTERUS 1978, 1984 ENDOMETRIAL ABLATION 2012 uterine ablation HEEL SPUR SURGERY Right 1990 OTHER SURGICAL HISTORY Right hallux nail chemical removal SENTINEL LYMPH NODE BIOPSY Left 2012 SENTINEL LYMPH NODE BIOPSY TONSILLECTOMY WISDOM TOOTH EXTRACTION 1976 Family History Problem Relation Name Age of Onset Hypertension Mother Hyperlipidemia Mother Mental illness Father Lung cancer Father Hypertension Father Heart disease Father Alzheimer's disease Father Cancer Other Hypertension Other Multiple myeloma Neg Hx Social History Tobacco Use Smoking status: Never Smokeless tobacco: Never Substance Use Topics Alcohol use: Never Allergies: [id number] [alitraq], Hydrocodone-acetaminophen, Hydromorphone, Wound dressing adhesive, and Latex Vitals: 05/12/24 0827 BP: 124/78 Pulse: 67 SpO2: 97% Body mass index is 30.04 kg/m . weight: 175 lb Neurologic exam: Mental status and general appearance: Awake and alert with unlabored respirations. Oriented to person, place, time, and president. Remotememory is intact. Recent memory is partially intact. Speech is clear and fluent without aphasia. Speech is non-dysarthric. Attention and concentration are normal. Fund of knowledge is appropriate forlevel of education. Pleasant. Cranial nerves: CN II: Visual acuity is normal. Visual márquez full to confrontation. CN III, IV, : Pupils are equal, round, and reactive to light. Extraocular movements intact. No ptosis present. CN V: Facial sensation is normal. CN VII: Full and symmetric facial movement. CN VIII: Hearing is normal to finger rub bilaterally. CN IX and X: Palate elevates symmetrically. CN XI: Shoulder shrug is normal bilaterally. CN XII: Tongue is midline without atrophy or fasciculation. Motor: RUE strength deltoid , biceps , triceps , wrist extensors , wrist flexor , and financial professional strength 5/5. LUE strength deltoid , biceps , triceps , wrist extensors , wrist flexor , and financial professional strength 5/5. RLE strength iliopsoas, quadriceps, tibialis anterior, and plantar flexion strength 5/5. LLE strength iliopsoas, quadriceps, tibialis anterior, and plantar flexion strength 5/5. Tone is normal. Sensory: Sensation is intact to light touch throughout all four extremities. Sensation is intact to temperature in all extremities. Reflexes: RUE biceps reflex 2+ , brachioradialis reflex 2+. LUE biceps reflex 2+ , brachioradialis reflex 2+. RLE knee reflex 1+. LLE knee reflex 1+. Coordination: Gphzsm-ix-ehre testing normal. Rapid alternating movements are normal. Gait: Normal. Review and summary of old records: Split night polysomnography on 01/21/2024: This patient does meet criteria for a severe obstructivesleep apnea. She has signs that could be consistent with a periodic limb movement disorder. Her OSAresponded reasonably well to CPAP at a pressure of 7 cm of water using a medium AirFit N20 nasal mask with a ramp time of 20 minutes with heated humidification of air for dryness. The patient did not have any residual events at this pressure. MOCA score at [facility] on 11/03/23: . Neuropsychological evaluation at [facility] on 04/24/23: Demonstrated some distractibility that interfered with optimal performance at times. That being said, she has some difficulty with retaining information, auditory attention/working memory, semantic fluency, visual complex divided attention, problem-solving/cognitive flexibility. 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 Minimal psychiatric inpatient contribution presently. Labs on 02/28/23: TSH 0.946. Vitamin B12 level 772. [place] cognitive assessment (MOCA) score on 02/26/23: . MRI of the brain on 02/25/23: No acute process. Mild parenchymal volume loss slightly more prominent in the parietal lobes bilaterally. Assessment/Plan Diagnoses and all orders for this visit: MCI (mild cognitive impairment) It is my impression that the patient has cognitive impairment. She reports forgetfulness and difficulty with short-term memory at times. She remains independent with all activities of daily living, and memory does not significantly impact her day-to-day functional ability. MRI of the brain on 02/25/23 revealed parenchymal volume loss with no other acute abnormalities. MOCA score on 02/26/23 was 23/30, and TSH and vitamin B12 level on 02/28/23 were within normal limits. Repeat MOCA score on 11/03/23 was also 23/30. The patient denies anxiety or depression. She underwent neuropsychological evaluation on 04/24/23, and results were most consistent with mild cognitive impairment, amnestic subtype.I do believe this is clinically consistent with the patient's history and findings thus far. Donepezil has been well tolerated, and memory has been subjectively stable since the prior neurology appointment per patient report. PLAN: - Referral to speech therapy for evaluation and treatment; to help improve cognition. I advised thepatient to notify our office if she is not contacted to schedule speech therapy within 1 week of today's appointment. I also wrote her a note to remind her of this. She verbalizes understanding - Continue donepezil 10 mg by mouth once a day - I recommended sleep hygiene, healthy diet, regular physical activity as tolerated, and methods tohelp improve recall of information - The patient denies any safety concerns in regard to driving at this time. I have recommended extra caution and focus while driving - Follow up with primary care provider for monitoring/management of blood pressure, cholesterol levels, and blood glucose JEFFREY (obstructive sleep apnea) History of JEFFREY treated with CPAP. The patient states she wears her CPAP nightly. She recently underwent split night polysomnography with CPAP titration on 01/21/[address] Jenkins. PLAN: - Follow up with sleep medicine/Dr. Jenkins for management - I encouraged compliance with CPAP while asleep - We discussed lifestyle interventions to help promote weight reduction Family history of Alzheimer's disease There is a positive family history of Alzheimer's disease in the patient's father and two cousins. Diagnosis and treatment options discussed in detail. All questions answered. The patient verbalizesunderstanding and is agreeable to the plan. Discussion in layman's terms. Follow up in the office within 4 to 6 months; sooner if needed for new or worsening symptoms. Anahi Rg NP [facility] documented in this encounterOzarks Community [id number] Instructions* Patient Instructions* Anahi Rg NP - 05/12/2024 8:40 AM EST - Referral to speech therapy - Continue donepezil 10 mg by mouth daily - Follow up in 4-6 months documented in this encounterOzarks Community [id number] NotePatient Education Obstetrics and Gynecology Kegel Exercises Kegel exercises can help strengthen your pelvic floor muscles. The pelvic floor is a group of muscles that support your rectum, small intestine, and bladder. In females, pelvic floor muscles also help support the uterus. These muscles help you control the flow of urine and stool (feces). Kegel exercises are painless and simple. They do not require any equipment. Your provider may suggest Kegel exercises to: ??? Improve bladder and bowel control. ??? Improve sexual response. ??? Improve weak pelvic floor muscles after surgery to remove the uterus (hysterectomy) or after , in females. ??? Improve weak pelvic floor muscles after prostate gland removal or surgery, in males. Kegel exercises involve squeezing your pelvic floor muscles. These are the same muscles you squeezewhen you try to stop the flow of urine or keep from passing gas. The exercises can be done while sitting, standing, or lying down, but it is best to vary your position. Ask your health care provider which exercises are safe for you. Do exercises exactly as told by your health care provider and adjust them as directed. Do not begin these exercises until told by your health care provider. Exercises How to do Kegel exercises: 1. Squeeze your pelvic floor muscles tight. You should feel a tight lift in your rectal area. If you are a female, you should also feel a tightness in your vaginal area. Keep your stomach, buttocks, and legs relaxed. 2. Hold the muscles tight for up to 10 seconds. 3. Breathe normally. 4. Relax your muscles for up to 10 seconds. 5. Repeat as told by your health care provider. Repeat this exercise daily as told by your health care provider. Continue to do this exercise for at least 4?6 weeks, or for as long as told by your health care provider. You may be referred to a physical therapist who can help you learn more about how to do Kegel exercises. Depending on your condition, your health care provider may recommend: ??? Varying how long you squeeze your muscles. ??? Doing several sets of exercises every day. ??? Doing exercises for several weeks. ??? Making Kegel exercises a part of your regular exercise routine. This information is not intended to replace advice given to you by your health care provider. Make sure you discuss any questions you have with your health care provider. Document Revised: 08/09/2021 Document Reviewed: 08/09/2021 [employer] Patient Education ? 2023 [employer] 04-26-2024 History of Present illness Narrative* Jelena Austin MD - 04/26/2024 10:05 AM EST Skin Check Location: Patient requests a full body skin examination Dermatologic history: no history of skin cancer, no history of atypical moles Last visit: 1 year ago Lesions: Location: right upper lateral eyelid Duration: 1 year Quality: denies pain, denies itch Associated symptoms: red Treatments: none Lesion # 2: Location: breasts Duration: year Quality: denies pain, denies itch Associated symptoms: rough Treatments: none Established patient All pertinent medical history, medications, and allergies were reviewed. General Exam: alert, oriented to person, place, and time, normal affect, well appearing Unaccompanied Scalp, Examined , exam limited by hair Right leg Examined Head, Face Examined Left leg Examined Neck Examined Right foot Examined Chest Examined Left foot Examined Back Examined Buttocks Examined Abdomen Examined Digits,nails: Examined Right arm Examined Left arm Examined Lymphatics: Not examined Hands Examined 1. Seborrheic keratosis (3) Left Breast, Right Breast, Torso - Posterior (Back) Stuck on verrucous, romero-brown papules and plaques. Patient was counseled regarding these benign growths. Removal is normally not necessary, but they may be removed if they are symptomatic or for cosmetic reasons. 2. Lentigines Scattered romero macules in sun-exposed areas. The patient was informed that lentigines are benign pigmented lesions that occur on sun-exposed andsun-damaged skin. No treatment is necessary. Recommended regular use of broad spectrum sunscreen SPF 30 or higher 3. Seborrheic keratosis, inflamed Right Supraorbital Region [place] and brown stuck on verrucous scaly papule with surrounding erythema The patient was informed that symptomatic seborrheic keratoses are benign growths that become inflamed, itchy, tender, traumatized, caught on clothing, or bleed. Symptomatic lesions can be treated with cryotherapy or curretage. Thicker lesions treated with cryotherapy may require more than one treatment. The patient was instructed to notify the office if abnormal redness or tenderness develops atthe treatment site. Cryotherapy today, see procedure note. Diagnosis: Inflamed seborrheic keratosis Indication: Inflamed Consent: Verbal consent was obtained and risks were discussed, including, but not limited to risks of scarring, darker or assembler chassis pigmentary changes, recurrence, incomplete removal and infection. Method: Liquid nitrogen was used to treat the lesion(s) with two 5-10 second freeze-thaw cycles Number of lesions treated: 1 Post-procedure instructions: Instructions were given orally and in writing. The office will be contacted if the lesion fails to resolve despite treatment, or if a side effect develops such as abnormal crusting, scabbing, redness or tenderness Cryotherapy, skin lesion - Right Supraorbital Region Next Visit: 1 year documented in this encounterOzarks Community [id number] History of Present illness Narrative* Anahi Rg NP - 12/22/2023 8:40 AM EDT Images from the original note were not included. Anahi Rg NP Chief Complaint Patient presents with Memory Loss Subjective Parth Powers is a 68 y.o. female. HPI The patient presents today for follow up. She is accompanied by her . At the prior appointment, donepezil dose was increased. The patient is taking donepezil 10 mg by mouth once a day. She denies any apparent side effects. She denies any change in cognition since the dose increase. The patient believes her memory and cognitive function have remained generally unchanged since the prior neurology appointment. Her feels as if they have worsened slightly but nothing too significant. They deny any sudden changes in mental status. The patient admits she still struggles withshort-term memory. Long-term memory is intact. She misplaces objects at times. states she is not repeating herself as often lately. He has not noticed any change in her behavior or personality. The patient continues to live at home with her . She is independent with all activities of daily living. She manages her medications independently and continues to drive. She denies any safetyconcerns in regard to driving and has not gotten lost while operating a motor vehicle. She did get lost one time inside a doctor's office after she used the restroom. The patient denies depression, anxiety, or hopelessness. She sleeps well. She denies wandering, delusions, or hallucinations. She has not fallen recently. She does not leave heat sources on accidentally. She wears her CPAP regularly. The patient and her deny any further concerns. Review of Systems Constitutional: Negative for appetite change, chills, fatigue, fever and unexpected weight change. HENT: Negative for trouble swallowing and voice change. Eyes: Negative for visual change, double vision or loss of vision Respiratory: Negative for cough, shortness of breath and wheezing. Cardiovascular: Negative for chest pain and palpitations. Gastrointestinal: Negative for abdominal pain, blood in stool, nausea and vomiting. Musculoskeletal: Negative for arthralgias, gait problem and myalgias. Neurological: Negative for dizziness, tremors, seizures, syncope, facial asymmetry, speech difficulty, weakness, light-headedness, numbness and headaches. Positive for memory impairment Psychiatric/Behavioral: Positive for confusion. Negative for hallucinations and suicidal ideas. Thepatient is not nervous/anxious. Past Medical History: Diagnosis Date BPPV (benign paroxysmal positional vertigo) Breast cancer ([facility]) H/O varicose veins HLD (hyperlipidemia) ([facility]) HTN (hypertension) ([facility]) Inflammatory and toxic neuropathy ([facility]) Muscle cramps Neuropathy Obstructive sleep apnea Osteoporosis ([facility]) Pain in limb Paresthesia Peripheral neuropathy Polyneuropathy Restless leg Small fiber neuropathy Past Surgical History: Procedure Laterality Date ADENOIDECTOMY BREAST LUMPECTOMY Left 2012 COLONOSCOPY 2007, 2018 COLPORRHAPHY 1989 A&P repair DILATION AND CURETTAGE OF UTERUS 1978, 1984 ENDOMETRIAL ABLATION 2011 uterine ablation HEEL SPUR SURGERY Right 1989 OTHER SURGICAL HISTORY Right hallux nail chemical removal SENTINEL LYMPH NODE BIOPSY Left 2011 SENTINEL LYMPH NODE BIOPSY TONSILLECTOMY WISDOM TOOTH EXTRACTION 1975 Family History Problem Relation Name Age of Onset Hypertension Mother Hyperlipidemia Mother Mental illness Father Lung cancer Father Hypertension Father Heart disease Father Alzheimer's disease Father Cancer Other Hypertension Other Multiple myeloma Neg Hx Social History Tobacco Use Smoking status: Never Smokeless tobacco: Never Substance Use Topics Alcohol use: Never Allergies: Ismu-xwurmx-jxeq [alitraq], Hydrocodone-acetaminophen, Hydromorphone, Wound dressing adhesive, and Latex Vitals: 12/22/23 0842 BP: 145/78 Pulse: 81 SpO2: 96% Body mass index is 30.24 kg/m . weight: 176 lb 3.2 oz Neurologic exam: Mental status: Awake and alert with unlabored respirations. Oriented to person, place and time. Remote memory is intact. Recent memory is partially intact. Speech is clear and non-dysarthric. Speech is fluent without aphasia. Attention and concentration are normal. Fund of knowledge is appropriate for level of education. Cranial nerves: CN II: Visual acuity is normal. Visual márquez full to confrontation. CN III, IV, : Pupils are equal, round and reactive to light. Extraocular movements intact. No ptosis present. CN V: Facial sensation is normal. CN VII: Full and symmetric facial movement. CN VIII: Hearing is normal to finger rub bilaterally. CN IX and X: Palate elevates symmetrically. CN XI: Shoulder shrug is normal bilaterally. CN XII: Tongue is midline without atrophy or fasciculation. Motor: RUE strength deltoid , biceps , triceps , wrist extensors , wrist flexor , and financial professional strength 5/5. LUE strength deltoid , biceps , triceps , wrist extensors , wrist flexor , and financial professional strength 5/5. RLE strength iliopsoas, quadriceps, tibialis anterior, plantar flexion, and dorsiflexion strength 5/5. LLE strength iliopsoas, quadriceps, tibialis anterior, plantar flexion, and dorsiflexion strength 5/5. Tone is normal. Sensory: Sensation is intact to light touch throughout all four extremities. Sensation is intact to temperature in all extremities. Reflexes: RUE biceps reflex 2+ , brachioradialis reflex 2+. LUE biceps reflex 2+ , brachioradialis reflex 2+. RLE Knee reflex 1+. LLE Knee reflex 1+. Coordination: Iopjfm-ez-hcan testing normal. Rapid alternating movements are normal. Gait: Normal. Review and summary of old records: MOCA score at [facility] on 11/03/23: . Neuropsychological evaluation at [facility] on 04/24/23: Demonstrated some distractibility that interfered with optimal performance at times. That being said, she has some difficulty with retaining information, auditory attention/working memory, semantic fluency, visual complex divided attention, problem-solving/cognitive flexibility. 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 Minimal psychiatric inpatient contribution presently. Labs on 02/28/23: TSH 0.946. Vitamin B12 level 772. MOCA score on 02/26/23: . MRI of the brain on 02/25/23: No acute process. Mild parenchymal volume loss slightly more prominent in the parietal lobes bilaterally. Assessment/Plan Diagnoses and all orders for this visit: MCI (mild cognitive impairment) It is my impression that the patient has memory impairment. She reports forgetfulness and difficulty with short-term memory at times. She is independent with all activities of daily living, and memory does not significantly impact her day-to-day functional ability. MRI of the brain on 02/25/23 revealed parenchymal volume loss with no other acute abnormalities. MOCA score on 02/26/23 was 23/30, and TSH and vitamin B12 level on 02/28/23 were within normal limits. She denies anxiety or depression.The patient underwent neuropsychological evaluation on 04/24/23. 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 Donepezil has been well tolerated. PLAN: - Continue donepezil 10 mg by mouth once a day - I recommended sleep hygiene, healthy diet, and regular physical activity as tolerated - We discussed compensatory memory techniques - The patient denies any safety concerns in regard to driving at this time. I recommended extra caution and focus while driving - Follow up with primary care provider for monitoring/management of blood pressure, cholesterol levels, and blood glucose JEFFREY (obstructive sleep apnea) History of JEFFREY treated with CPAP. The patient states she wears her CPAP nightly. She estimates she has not followed up with sleep medicine for this since initial diagnosis around 2004. PLAN: - I encouraged compliance with CPAP while asleep - Referral to sleep medicine for evaluation and treatment (consideration of updated sleep study andCPAP titration as indicated) Family history of Alzheimer's disease Positive family history of Alzheimer's disease in the patient's father and two cousins. I educated the patient and her on symptoms of acute delirium. The patient was advised to call EMS or seek urgent evaluation in the emergency department if she develops sudden change in mentalstatus or symptoms of acute delirium in the future. Diagnosis and treatment options discussed in detail. All questions answered. The patient and her verbalize understanding and are agreeable to the plan. Discussion in layman's terms. Follow up in the office within 4 to 6 months; sooner if needed for new or worsening symptoms. Anahi Rg NP [facility] documented in this [facility]09-09-2024 Instructions* Patient Instructions* Anahi Rg NP - 12/22/2023 8:40 AM EDT - Referral to sleep medicine at [facility] documented in this [facility]08-20-2024 NotePatient Education Obstetrics and Gynecology Overactive Bladder, Adult [...] You may also have very sensitive muscles thatmake your bladder squeeze too soon. This condition [...] as stroke, dementia, Parkinson's disease, or multiple sclerosis(MS). ? Eat or drink alcohol, spicy food, [...] health care provider. General instructions ? Take bheb-etv-gaaiqtr and prescription medicines only as told by [...] help your health care (more content not included)...[facility]07-09-2024 NotePatient Education Custom Cystoscopy with Botox injection ? Voiding after the procedure: there may be some pain, burning, urgency, frequency and blood tingedurine following the procedure. These symptoms usually resolve [...] if you have a fever over 100 degrees.[facility] 09-23-2023 NoteChief Complaint Repeat Botox Evaluation HPI Staff Last [...] with voice recognition artificial intelligence software, specifically [employer] and or [employer]. Substitutions may have occurred due to the [...] the last 6 months, particularly as soon asshe lays down in bed and she is [...] an indwelling catheter or need for in/out c atheterization to empty the bladder, and need for repeat procedures over time (usually lasts up to six months), as well as fatigue and insomnia, among others. There is a minimal risk of Botox entering the blood stream and causing neurological problems, which is quite rare. Will order Local anesthesia. -Timed voids, voiding maneuvers -Schedule Botox with [facility] Ordered: 39235 Measure Post Void residual urine and/or bladder capacity by US- non-imaging 2. Stress incontinence (N39.3: Stress incontinence (female) (male)) With sneezing, coughing, sometimes activity. Not particularly bothersome to patient at this time. 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 Mixed incontinence Neuropathy Urge incontinence Urinary urgency Historical No qualifying data Procedure/Surgical History Injection of therapeutic substance into bladder wall (05/28/2022), Injection of therapeutic substance into bladder wall (02/06/2021), Cystoscopy (10/26/2019), Bilateral mastectomy (02/2019), Injection of therapeutic substance into bladder wall (02/17/2018), Injection of therapeutic substance into bladder wall (11/19/2016), Hanna node biopsy (03/2012), Lumpectomy (02/2012), External beam [...] Immunizations Vaccine Date Status Comments SARS-CoV-2 (COVID-19) [id number].[id number] 01/23/2022 Recorded influenza virus vaccine, inactivated 01/03/2022 Recorded SARS-CoV-2 (COVID-19) mRNA BNT-162b2 vax 01/22/2021 R (more content not included)...[facility]:Result Comment: Electronically Signed By: STACIE Espinoza APRN, Za Larson\.jose francisco\Date and Time Signed: 09/23/23 13:18 [id number] History of Present illness Narrative* Gregg Blum MD - 07/01/2023 6:39 AM EDT PATIENT NAME: Parth Powers DATE: 07/01/2023 PRIMARY [...] noticed no changes in her chest wall. Nounusual pain or other systemic symptoms. MEDICATIONS: aspirin, [...] ORAL) Take by mouth once daily. Fish Oil-Bland-3 Fatty Acids (FISH OIL) 340-1,000 mg cap [...] receptor negative Stage IA (T1mic, N0, M0) ER/MA negative, HER-2 negative left-sided breast cancer diagnosed [...] PCP obtain yearly labs, therefore we will notobtain labs unless symptoms develop. Gregg Blum MD CC: David Bolanos MD [facility] Evaluation note* Encounter Date Diagnosis Assessment Notes Treatment Notes Treatment Clinical Notes Feb, Wound of foot (ICD-10 - S91.309A) Referral to [facility] written. 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 [facility] Other 10-24-2023 Evaluation note* Encounter Date Diagnosis Assessment Notes Treatment Notes Treatment Clinical Notes Jan, COVID-19 (ICD-10 - U07.1) Hold atorvastatin while on paxlovid. Continue rest and supportive care. Denies dyspnea. Discussed further treatment options. Reviewed + test at [facility] lab today [facility] Other 10-10-2023 Evaluation note* Encounter Date Diagnosis [...] is readily compliant w machine and treatment. [facility] 08-08-2023 Evaluation note* Encounter Date Diagnosis [...] Requests refill. condition is chronic and stable. [facility] Other 04-24-2023 Evaluation note* Encounter Date Diagnosis Assessment Notes Treatment Notes Treatment Clinical Notes Jul, Strain of left trapezius muscle, initial encounter (ICD-10 - S46.812A) [facility] 03-15-2023 Evaluation note* Encounter Date Diagnosis Assessment Notes Treatment Notes Treatment Clinical Notes Jun, Other chronic pain (ICD-10 - G89.29) Jun, Pain in left shoulder (ICD-10 - M25.512) Pt declines PT at this time. Will check xray and followup w Dr. Quinn. Had two massages - no improvement in prominent muscle spasm in L trap area. [facility] Other 03-02-2023 History of Present illness Narrative* [...] receptor negative Stage IA (T1mic, N0, M0) ER/MA negative, HER-2 negative left-sided breast cancer diagnosed [...] evaluating with CT scans +/- bone scan. rGegg Blum MD CC: David Bolanos MD documented in this encounterOhio[facility]02-23-2023 Evaluation note* Encounter Date Diagnosis Assessment Notes Treatment Notes Treatment Clinical Notes May, Strain of left trapezius muscle, initial encounter (ICD-10 - S46.812A) Declines cardiac concerns or PT referral as she is traveling soon. Will consider a massage. [facility] Other 02-02-2023 NoteCONSULTATION CONSULTATION DATE: 05/16/2022 HISTORY [...] She will call the office for refills.[id number] NoteCONSULTATION CONSULTATION DATE: 03/05/2022 CHIEF COMPLAINT: Low [...] like to proceed. CC: David Bolanos M.D.[facility] [id number] NotePAIN MANAGEMENT CONSULTATION CONSULTATION DATE: 02/12/2022 CHIEF [...] answered. The patient would like to proceed.[facility] [id number] Note PAIN MANAGEMENT CONSULTATION CONSULTATION DATE: 01/15/2022 [...] the thoracic spine. CC: David Bolanos M.D.[facility] [id number] Evaluation note* Encounter Date Diagnosis Assessment Notes [...] Above note written by Chadd Irizarry MA, Associate Financial Planner. Edited and approved by Dr. Elder Vigil MD. [facility] 12-08-2021 Evaluation note* Encounter Date Diagnosis Assessment Notes Treatment Notes Treatment Clinical Notes Mar, Trochanteric bursitis of right hip (ICD-10 - M70.61) [facility] 12-07-2021 Evaluation note* Encounter Date Diagnosis [...] note writ ten by Chadd Irizarry CMA, Associate Financial Planner. Edited and approved by Dr. Elder Vigil MD. [facility] 10-06-2021 Evaluation note* Encounter Date Diagnosis [...] note writ ten by Macy Toth CMA, Associate Financial Planner. Edited and approved by Dr. Elder Vigil MD. Medical decision making shows a [...] negative findings were considered in medical decision-making. [facility] Other 09-29-2021 Evaluation note* Encounter Date Diagnosis [...] schedule an appt with Dr Joseph Vigil (resin painter) for evaluation and hip joint injection. Dec, Pain of right lower extremity (ICD-10 - M79.604) [facility] Other Evaluation noteNo InformationNort [employer] Other Evaluation noteNo assessment information available [facility] Work Phone: Evaluation note* Diagnosis Malignant neoplasm of upper-outer quadrant of left breast in female, estrogen receptor negative (HCC)- Primary [facility] encounter [facility]* Diagnosis Malignant neoplasm of upper-outer quadrant of left breast in female, estrogen receptor negative (HCC)- Primary [facility] encounter [facility]* Diagnosis MCI (mild cognitive impairment)- Primary Mild cognitive impairment, so stated JEFFREY (obstructive sleep apnea) Obstructive sleep apnea (adult) (pediatric) Family history of Alzheimer's disease Family history of other condition documented in this encounter [facility] HealthcareEvaluation note* Diagnosis Seborrheic keratosis- Primary Lentigines Seborrheic keratosis, inflamed documented in this encounter [facility]* Diagnosis MCI (mild cognitive impairment)- Primary Mild cognitive impairment, so stated JEFFREY (obstructive sleep apnea) Obstructive sleep apnea (adult) (pediatric) Family history of Alzheimer's disease Family history of other condition documented in this encounter [facility] HealthcareEvaluation note* Diagnosis Malignant neoplasm of upper-outer quadrant of left breast in female, estrogen receptor negative (HCC)- Primary documented [facility] this encounter [facility]* Diagnosis Onset Date Resolution Status Admit Date Foot ulcer due to secondary DM acute September 20, 2024 10:42am [facility] Work Phone: Histzlu general Narrative - Reported* Type Description Date Medical History hypertension Medical History high cholesterol Medical History neuropathy bilateral feet Medical History osteoarthritis Medical History breast cancer Medical History osteopenia Surgical History breast cancer Surgical History lumpectomy, left breast Surgical History lumpectomy, right breast Surgical History bilateral mastectomy Surgical History toe surgery Hospitalization History see above [facility] Other Hismvjb general Narrative - ReportedNoSmart [employer] Other Hisykdu general Narrative - Reported* Type Description Date [...] lid lift 05/23/2022 Hospitalization History see above [facility] Other Hisbtnc general Narrative - Reported* Type Description Date [...] lid lift 05/23/2022 Hospitalization History see above [facility] Other Hospital Discharge instructionsAmbulatory Orders* Referral to Podiatry Time Frame: 09/20/24, Location: None [facility] Work Phone: Reason for referral (narrative)* Consultation (Routine) - Pending Review Specialty Diagnoses / Procedures Referred By Eleazar lópez Referred To Contact Sleep Medicine Diagnoses JEFFREY (obstructive sleep apnea) Procedures MA OFFICE/OUTPATIENT NEW HIGH MDM 60 MINUTES Anahi Rg NP [address] [facility] [address] [place] [id number] [facility] [address] [place] [address] Phone: [phone] Referral ID Status Reason Start Date Expiration Date Visits Requested Visits Authorized [id number] Pending Review Consult and Treat 12/22/2023 06/19/2024 1 1 Scheduling Instructions For evaluation, consideration of updated sleep study, and CPAP adjustment as indicated TRACIE Spangler for referral (narrative)No reason for referral information availablePromedica Fost[facility] Work Phone: Summary Purpose Family History Relationship Condition Age at Onset Recorded Date/T gregor father Unknown Malignant neoplasm Unknown Hypertension Unknown mother Hypertension Unknown Unknown Relationship Condition Age at Onset Recorded Date/T gregor father Unknown Malignant neoplasm Unknown Hypertension Unknown Alzheimer's disease Unknown mother Hypertension Unknown Unknown High blood cholesterol Unknown Advance Directives Advance Directive Response Recorded Date/ Time Advance Directives No December 10:06am Documents on File Type Date Recorded 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 Advance Directive(s) 05/26/2012 10:48 AM Advance Directive Response Recorded Date/ Time Advance Directives No December 01, 2023 10:15am Chief Complaint and Reason for Visit Chief Complaint H02.403 Chief Complaint Admit Date VIRTUAL:COVID+/Sore Throat May 20, 2024 1:23pm mild cog impairment August 09, 2024 11: 15am Reason for Visit Admit Date COVID-19 May 20, 2024 1 :23pm Sinusitis, acute maxillary May 20, 2024 1:23pm Chief Complaint Admit Date mild cog impairment August 09, 2024 11: 15am sore on right foot September 20, 2024 10:42 am Reason for Visit Admit Date Foot ulcer due to secondary DM September 20, 2024 10:42am Chief Complaint Admit Date sore on right foot September 20, 2024 10:42 am wellness December 01, 2024 9: 51am Reason for Visit Admit Date Foot ulcer due to secondary DM September 20, 2024 10:42am Family history of Alzheimer disease September 28, 2024 12:58pm Mild cognitive impairment September 28 12:58pm Obstructive sleep apnea of adult September 282024 12:58pm Alzheimer's disease, unspecified December 01, 2024 9:51am Hyperlipemia December 01, 2024 9: 51am Hypertension December 01, 2024 9: 51am Medicare annual wellness visit, subseque nt December 01, 2024 9:51am Reason for Referral Reason connie Barahona concerns - MRI pending Diagnosis 1 Memory deficit (R41. 3) Referral Organization [facility] rosa Referring Provider First Name David Referring Provider Last Name Luis Miguel Referring Provider Specialty [facility] Referred Organization [facility] Referred Provider Quentin Eric Referred Address [address] [place], [place],[address] Referred Provider Specialty Neurology Referral Priority Routine Reason *FU 07/10 Marv of fice - Xray today. OV from today and May. Thank you. Diagnosis 1 Pain in left shoulde r (M25.512) Referral Organization [facility] rosa Referring Provider First Name David Referring Provider Last Name Luis Miguel Referring Provider Specialty [facility] Referred Organization [facility] Referred Provider Adelso Quinn Referred Address ,[place], [place],[address] Referred Provider Specialty Orthopaedic Surgery Referral Priority Routine General Notes Ginger Pruitt 01:20:29 PM >received today, no XR from today in chart, notes locked, other attachments made, referral faxxed Ginger Pruitt 07/03/2022 10:55:25 AM >FAXED FIRST ATTEMPT LETTER Additional Source Comments INFORMATION SOURCE (unrecogn ized section and content) DATE CREATED AUTHOR 11/24/2018 [facility] DATE CREATED AUTHOR AUTHOR'S ORGANIZ ATION 08/01/2022 [facility] DATE CREATED AUTHOR AUTHOR'S ORGANIZ ATION 05/12/2024 [facility] DATE CREATED AUTHOR AUTHOR'S ORGANIZ ATION 05/13/2024 [facility] EPIC DATE CREATED AUTHOR AUTHOR'S ORGANIZ ATION 07/01/2024 [facility] DATE CREATED AUTHOR AUTHOR'S ORGANIZ ATION 08/10/2024 [facility] REASON FOR VISIT (unrecogniz ed section and content) Reason Comments Breast Cancer 1 year follow up Reason Comments Breast Cancer Follow up Reason Comments Memory Loss Reason Comments Skin Check Reason Comments Breast Cancer Care Teams (unrecognized sec tion and content) Team Status: Active Member Role Status Dates David Bolanos MD Primary Care Provider Active Team Status: Inactive Member Role Status Dates David Bolanos MD Primary Care Provider Active Start: August 09, 2024 End: August 09, 2024 Anahi Rg APRN-COLLAR SETTER-C Attending Provider Active Start: August 09, 2024 End: August 09, 2024 Team Status: Inactive Member Role Status Dates David Bolanos MD Primary Care Provide r, Attending Provider Active Start: September 20, 2024 End: September 20, 2024 Team Status: Active Member Role Status Dates David Bolanos MD Primary Care Provide r, Attending Provider Active Start: May 17, 2024 Team Status: Active Member Role Status Dates David Bolanos MD Primary Care Provider Active Start: May 17, 2024 Gaetano Dempsey DO Attending Provider Active Sta rt: May 17, 2024 Team Status: Inactive Member Role Status Dates David Bolanos MD Primary Care Provide r, Attending Provider Active Start: May 20, 2024 End: May 20, 2024 Team Status: Inactive Member Role Status Dates David Bolanos MD Primary Care Provider Active Regina Biggs MD Attending Provider Active Quality Assurance Test Program Manager Relationship Specialty Start Date End Date David Bolanos MD [address] [place] [place] [phone] PCP - General Family Medicine 03/19/12 Quality Assurance Test Program Manager Relationship Specialty Start Date End Date David Bolanos MD [address] [facility] [place] [place] [address] PCP - General Family Medicine 03/19/12 Quality Assurance Test Program Manager Relationship Specialty Start Date End Date David Bolanos MD [address] [facility] [place] [place] [address] PCP - General Family Medicine 03/19/12 Quality Assurance Test Program Manager Relationship Specialty Start Date End Date David Bolanos MD [address] [facility] [place] [phone] PCP - General Family Medicine 07/10/23 Quality Assurance Test Program Manager Relationship Specialty Start Date End Date David Bolanos MD [address] [facility] [place] [phone] PCP - General Family Medicine 07/10/23 Quality Assurance Test Program Manager Relationship Specialty Start Date End Date David Bolanos MD [address] [facility] [place] [phone] PCP - General Family Medicine 07/10/23 Quality Assurance Test Program Manager Relationship Specialty Start Date End Date David Bolanos MD [address] [facility] [place] [phone] PCP - General Family Medicine 07/10/23 Quality Assurance Test Program Manager Relationship Specialty Start Date End Date David Bolanos MD [address] [facility] [place] [phone] PCP - General Family Medicine 07/10/23 Quality Assurance Test Program Manager Relationship Specialty Start Date End Date David Bolanos MD [address] [facility] [place] [phone] PCP - General Family Medicine 03/19/12 Team Status: Inactive Member Role Status Dates David Bolanos MD Primary Care Provider Active Start: September 20, 2024 End: September 20, 2024 David Bolanos MD Attending Provider Active St art: September 20, 2024 End: September 20, 2024 Team Status: Inactive Member Role Status Dates David Bolanos MD Primary Care Provider Active Start: September 28, 2024 End: September 28, 2024 Anahi Rg , FARMWORKER [employer]GETABLE-COLLAR SETTER-C Attending Provider Active Start: September 28, 2024 End: September 28, 2024 Team Status: Inactive Member Role Status Dates David Bolanos MD Primary Care Provider Active Start: December 01, 2024 End: December 01, 2024 David Bolanos MD Attending Provider Active St art: December 01, 2024 End: December 01, 2024 Goals (unrecognized section and content) Goals may be documented in a n alternate section Source Comments (unrecognize d section and content) In the event this informatio n is protected by the Federal Confidentiality of Alcohol and Drug Abuse Patient Records regulations: The Federal rules restrict any use of the information to criminally investigate or prosecute any alcohol or drug abuse patient.[facility] the event this information is protected by the Federal Confidentiality of Alcohol and Drug Abuse Patient Records regulations: The Federal rules restrict any use of the information to criminally investigate or prosecute any alcohol or drug abuse patient.[facility] the event this information is protected by the Federal Confidentiality of Alcohol and Drug Abuse Patient Records regulations: The Federal rules restrict any use of the information to criminally investigate or prosecute any alcohol or drug abuse patient.[facility] the event this information is protected by the Federal Confidentiality of Alcohol and Drug Abuse Patient Records regulations: The Federal rules restrict any use of the information to criminally investigate or prosecute any alcohol or drug abuse patient.[facility] FOR RECORDS PERTAINING TO PATIENTS WHO [...] BE BASED ON THE PRIMARY CLINICAL RECORDS. [facility] [employer] [facility]. provides no warranty or guarantee of the accuracy or completeness of information in this document.
[2024-12-03 10:34] LABS: Alanine Aminotransferase 35 U/L (14-59); Albumin Globulin Ratio 1.1; Albumin Level 3.8 g/dL (3.4-5.0); Alkaline Phosphatase 38 U/L (46-116); Anion Gap 13.6; Aspartate Amino Transferase 23 U/L (15-37); Blood Urea Nitrogen 17.0 mg/dL (7.0-18.0); Calcium 8.9 mg/dL (8.5-10.1); Carbon Dioxide 28.3 mmol/L (21.0-32.0); Chloride 103 mmol/L (98-107); Cholesterol 267 mg/dL (<=200); Estimated GFR (African America >60 (>=60 mL/min/1.73m^2); Estimated GFR (Non-African Ame >60 (>=60 mL/min/1.73m^2); Globulin 3.6 g/dL; Glucose 103 mg/dL (74-106); HDL Cholesterol 69 mg/dL (40-60); Potassium 3.9 mmol/L (3.5-5.1); Sodium 141 mmol/L (136-145); Total Protein 7.4 g/dL (6.4-8.2); Triglycerides 300 mg/dL (<=150); VLDL CHOLESTEROL 60.0 mg/dL
[2024-12-03 10:47] LABS: Hematocrit 37.0 % (36.0-48.0); Hemoglobin 12.6 g/dL (12.0-16.0); Immature Granulocytes Abs Auto 0.01 10^3/uL (0.00-0.03); Immature Granulocytes Pct Auto 0.2 % (0.0-0.5); Lymphocytes Absolute Auto 1.7 10^3/uL (1.2-3.8); Mean Corpuscular HGB Conc 34.1 g/dL (29.9-35.2); Mean Corpuscular Hemoglobin 32.6 pg (26.7-34.0); Mean Corpuscular Volume 95.9 fL (81.0-99.0); Platelet Count 280 10^3/uL (150-450); Red Blood Count 3.86 10^6/uL (4.20-5.40); White Blood Count 5.2 10^3/uL (4.0-11.0)
[2024-12-03 10:54] LABS: Microalbum Creatinine Ratio Ur 11.9 mg/g (0.0-29.9)
== END 2024-12-03 09:40 | disposition home or self-care (01) ==
LOC: LAB 09:42
PROVIDERS: PCP Family Medicine; Visit Provider Family Medicine
DX: E78.2 Mixed hyperlipidemia (principal); I10 Essential (primary) hypertension
CPT/HCPCS: 36415; 80053; 80061; 82043; 82570; 85025

== ENCOUNTER 2025-01-17 14:48 | Outpatient (OUT) | payer MEDICARE, OTHER, SELFPAY ==
--- NOTE | 2025-01-17 14:53 | XR_ITS ---
The [address] [address] Patient Name: PARTH POWERS MRN: [id number] date: 1955 Sex: F Assigned Patient Location: [facility] Current Patient Location: [facility] Accession/Order Number: [id number] Exam Date: 01/17/2025 14:55 Report Date: 01/17/2025 20:44 At the request of: DAVID BOLANOS MD Procedure: XR hand LT min 3V XR hand LT min 3V 01/17/2025 3:04 PM SIGNS AND SYMPTOMS: Redness and swelling over left second metacarpal PROTOCOL: 3 views of the left hand COMPARISON: None FINDINGS: The bones are in anatomic alignment. There is no evidence of acute displaced fracture. Heterotopic ossification is noted along the palmar surface of the head of the second metacarpal. There is mild narrowing of the interphalangeal joints greatest in the second digit. XR/XR hand LT min 3V IMPRESSION: No fracture. Degenerative changes are noted greatest in the second digit with heterotopic ossification along the palmar aspect of the head of the second metacarpal. Impression dictated by: Chilango Case M.D. 01/17/2025 8:44 PM Dictation Location: [place] [address] Electronically authenticated by: [id number] Y Date: 01/17/2025 20:44
--- OUTSIDE RECORDS SUMMARY | 2025-01-17 14:58 | XMS_ITS | CCD ---
Author Organization [facility] Care Team Providers Care Development Writer Name Role Phone Keith Gaspar Unavailable Elder Vigil Unavailable MD David Bolanos Primary Care Provider MD Regina Biggs Attending Provider David Bolanos MD Primary Care Provider David [...] SAV ., DR EM Hernandez Consulting Unavailable JOHSUA HOLDER Consulting Unavailable SAV ., DR EM [...] Primary Care Unavailable SAV ., DR EM eHrnandez Admitting Unavailable SAV ., DR EM Hernandez [...] Unavailable David Bolanos MD Primary Care Provider [phone] HILL, Sandeep R Attending Unavailable Orzech, Za [...] Unavailable David Bolanos MD Primary Care Provider [phone] Arcenio BANDA-Anahi QUINONES Attending Provider David Bolanos Primary Care Unavailable Anahi Rg Attending Unavailable Anahi Rg Admitting Unavailable David Bolanos MD Primary Care Provider David Bolanos MD Attending Provider Anahi Bowers Attending Provider David Bolanos MD Primary Care Provider David Bolanos MD Attending Provider Gaetano Dempsey DO Attending Provider Allergies Allergy Classification Reported Allergen(s) Allergy Type Date of Onset Reaction(s) Facility (15 sources) Acetaminophen / HYDROcodone; Translations: [Vicodin] Drug Allergy 03-27-20 15 Unknown [facility] Repository (20 sources) HYDROmorphone; Translations: [HYDROmorphone] Drug Allergy 12-23-19 15 GI intolerance [facility] Other (18 sources) Morphine Drug Allergy 12-01-19 24 Unknown, [facility] (13 sources) Acetaminophen / HYDROcodone; Translations: [HYDROCODONE-ACET AMINOPHEN] Drug Allergy 12-23-19 15 GI Upset, GI intolerance [facility] (5 sources) Adhesive Tape; Translations: [ADHESIVE TAPE (ROSINS)] Allergy to substance 03-13-20 12 Unknown [facility] (5 sources) HYDROmorphone; Translations: [HYDROMORPHONE (BULK)] Drug Allergy 12-23-19 15 GI Upset [facility] (13 sources) Latex; Translations: [LATEX, NATURAL RUBBER] Drug Allergy 08-15-19 17 [facility] (5 sources) Oats, Oat Gum; Translations: [OATS, OAT GUM] Food Allergy 05-21-19 17 [facility] (12 sources) Adhesive Tape; Translations: [Tape] Drug allergy Unknown [facility] Repository (17 sources) Latex; Translations: [Latex] Drug allergy 12-01-19 24 Unknown, [facility] Rep[facility] (2 sources) HYDROmorphone; Translations: [Dilaudid] Drug Allergy 03-27-20 15 [facility] (1 source) Latex Drug allergy (disorder) 03-27-20 15 [facility] (1 source) Morphine Drug Allergy [facility] Rep[facility] (2 sources) Nimorazole; Translations: [Oats] Drug Allergy 04-14-19 17 [facility] (1 source) Misc-Other; Translations: [Misc-Other] Propensity to adverse reactions (disorder) 03-27-20 15 [facility] Rep[facility] (7 sources) Vicodin *ANALGESICS - OPIOID* Propensity to adverse reactions 04-14-[address] [facility] [employer] Other (7 sources) Morphine Sulfate (Concentrate) *ANALGESICS - OPIOI Propensity to adverse reactions Unknown [facility] [facility] [employer] Other (2 sources) Allergies Reconciled Propensity to adverse reactions Unknown [facility] Other (2 sources) patient allergy list reviewed by nurse or physicia Propensity to adverse reactions 07-15-19 14 Comment:Done [employer] Other (8 sources) Alitraq Propensity to adverse reactions 10-30-19 [facility] (8 sources) Wound Dressing Adhesive Drug Allergy 03-13-20 12 Unknown [facility] (6 sources) Acetaminophen; Translations: [acetaminophen] Drug Allergy 12-01-19 [facility] Comment on above: Onset Date: 04/14/19 19 (6 sources) Adhesive Tape; Translations: [adhesive tape] Allergy to substance 12-01-19 [facility] (6 sources) HYDROcodone; Translations: [hydrocodone] Drug Allergy 12-01-19 [facility] Comment on above: Onset Date: 04/14/19 19 (1 source) HYDROmorphone Drug Allergy 12-01-19 24 [facility] Repository (1 source) Latex Drug allergy (disorder) 12-01-19 [facility] Repository (1 source) Morphine Drug Allergy 12-01-19 [facility] Repository (2 sources) Doxycycline Drug Allergy 12-02-19 Itching [facility] Medications Current Medications Medication Drug Class(es) [...] on above: Take 2 tablets by mo uth as needed. ALPHA LIPOIC ACID PO (8 sources) ALPHA LIPOIC ACI D PO Take by mouth Active Ascorbic Acid (12 sources) Vitamin C ascorbic acid (V ITAMIN C ORAL) Take by mouth once daily. Active take 1 tablet by mouth in the mo rning Ascorbic Acid (vitamin C) 1000 MG tablet Take 1,000 mg by mouth in the morning. Active ascorbic acid (V ITAMIN C ORAL) Take by mouth once daily. 0 Active Comment on above: Take by mouth once d aily. Biotin (20 sources) Start: 08-18-2023 take 1 tablet by risa th once daily Start: 08-18-2023 take 1 tablet by risa th once daily Biotin 300 mcg tablet Active 1 TAB PO Daily August 18, 2023 12:00am [employer] tablet Orally Once a day; Note: Source Status: Taking; Provider: Luis Miguel Deal ( ) Complies with drug therapy Start: 08-18-2023 take 1 tablet by risa th once daily Biotin 300 mcg tablet Active 1 TAB PO Daily August 18, 2023 12:00am [employer] tablet Orally Once a day; Note: Source Status: Taking; Provider: Luis Miguel Deal ( ) BIOTIN ORAL Take by mouth. Active take 1 capsule by mo ut in the morning biotin 5 MG capsule Take 5 mg by mouth in the morning. Active take 1 tablet by [facility] every twenty-four hours Biotin 300 MCG 1 tablet Orally Once a day Active BIOTIN ORAL Take by mouth. 0 Active take 1 tablet by [facility] once daily Biotin 300 MCG 1 tablet Orally Once a day Active Comment on above: Take by mouth. calcitriol 0.44260 mg oral capsule (8 sources) Vitamin D3 [...] tablet by mouth twice daily at mealtime take 1 tablet by mouth every twe [...] D,3, ORAL) cholecalciferol 1.25 mg oral capsule (17 sources) Vitamin D Start: 08-18-2023 take 1 capsule by [facility] every month take 1 tablet by mouth once leeanna y cholecalciferol (VITAMIN D-3) 50 mcg (2,000 unit) tablet Take 2,000 Units by mouth once daily. Active take 1 tablet by mouth in the mo [facility] cholecalciferol (Vitamin D-3) 50 MCG (2000 UT) tablet Take 2,000 Units by mouth in the morning. Active Comment on above: Take 2,000 Units by mouth once daily. 1 ml denosumab 60 mg/ml prefilled syringe (6 sources) RANK Ligand Inhibitor Start: 12-01-2023 denosumab (PROLI A SUBCUTANEOUS) Inject subcutaneously. Active [...] capsule by mouth in the morning. Active [place] 6-Ybd-Aun-Fish Oil (5 sources) Start: 08-18-2023 take 300-1000 mg by mouth once daily Start: 08-18-2023 take 300-1000 mg by mouth once daily [place] 3-Chu-Mem-Fish Oil (Fish Oil) 300-1,000 mg capsule Active 1 CAP PO Daily August 18, 2023 12:00am Complies with drug therapy Start: 08-18-2023 take 300-1000 mg by mouth once daily [place] 0-Sog-Ylf-Fish Oil (Fish Oil) 300-1,000 mg capsule Active 1 CAP PO Daily August 18, 2023 12:00am donepezil hydrochloride 10 m g oral tablet (20 sources) Start: 12-01-2024 take 1 tablet by risa th once daily Start: 12-01-2023 End: 12-01-2024 take 1 tablet [...] Active ferrous sulfate 325 mg oral tablet (20 sources) Start: 08-18-2023 take 1 tablet by mouth once daily take 65 mg by mouth three times [...] a week. 3 days a week Fish Oil-[place]-3 Fatty Acids (FISH OIL) 340-1,000 mg cap (4 sources) take 1 capsule by mouth once daily Fish Oil-[place]-3 Fatty Acids (FISH OIL) 340-1,000 mg cap Take 1 capsule by mouth once daily. Active take 1 capsule by mouth once ca ly Fish Oil-[place]-3 Fatty Acids (FISH OIL) 340-1,000 mg cap Take 1 capsule by mouth once daily. 0 Active Comment on above: Take 1 capsule by mo uth once daily. Fish Oils (11 sources) take [...] Active magnesium citrate 100 mg oral tablet (5 sources) Start: 08-19-2023 take 1 capsule by mouth once daily magnesium oxide 400 mg oral tablet (4 [...] on above: Take 1 tablet by risa once daily. niacin 500 mg extended release [...] ophthalmic suspension (8 sources) Corticosteroid Start: 06-23-19 24 prednisoLONE acetate (Pred-Forte) 1 % ophthalmic suspension [...] by mouth once d aily. Vitamin D3 [id number] UNIT/GM (18 sources) Vitamin D3 13565 00 UNIT/GM as directed Active vitamin e 268 mg oral capsule (12 sources) take 1 capsule by [facility] once daily alpha tocopheryl acetate (VITAMIN E) 400 unit capsule Take 400 Units by mouth once daily. Active take 1 capsule by mouth in the [facility] vitamin E 180 MG (400 UNIT) capsule Take 180 mg by mouth in the morning. Active Comment on above: Take 400 Units by [facility] once daily. {20 (nirmatrelvir 150 MG Oral [...] 1 tablet [facility] alendronate (Fosamax) 35 MG tablet Take 35 [...] Platelet Aggregation Inhibitor, Nonsteroidal Anti-inflammatory Drug Start: 4 End: 4 take 1 tablet by mouth [...] daily. Active take 1 tablet by risa every twenty-four hours Aspirin 81 MG 1 tablet Orally Once a day Active Comment on above: Take 81 mg by mouth once daily. cefdinir 300 mg oral capsule (5 sources) Cephalosporin Antibacterial Start: 05-20-19 End: 09-21-19 take 1 capsule by mouth twice daily Cefdinir 300 mg capsule Discontinued 300 MG PO Twice daily May 20, 2024 1:00am September 20, 2024 10:59am DHEA 25 MG (9 sources) DHEA 25 MG as directed Orally Not-Taking doxycycline hyclate 100 mg oral tablet (4 sources) Tetracycline-class Drug Start: 09-21-19 End: 12-02-19 [...] sources) Angiotensin 2 Receptor Rosamaria Start: 09-24-19 End: 06-03-19 take 1 tablet by mouth once daily Losartan 25 mg tablet Discontinued 0 .ROUTE .COMPLEX 84 March 15, 2024 9:48am June 03, 2024 [...] tablet (16 sources) Nonsteroidal Anti-inflammatory Drug Start: 1 take 1 tablet by mouth every twenty-four hours Meloxicam 15 MG 1 tablet Orally Once a day for 30 day(s) Jul, Not-Taking Nirmatrelvir-Ritona vir (2 sources) Start: End: Nirmatrelvir-Ritonavi r (Paxlovid) 300 [...] bedtime. 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 [...] Episodic Immunizations and screening for infectious disease (8 sources) Encounter for screening for human papillomavirus [...] and degenerative nervous system conditions (16 sources) Impaired cognition; Translations: [Mild cognitive impairment, [...] Onset: 06-26-2022 Episodic Other non-traumatic joint disorders (5 sources) Hip pain; Translations: [Pain in left [...] keratosis] 04-26-2024 Episodic Other upper respiratory infections (8 sources) Acute maxillary sinusitis; Translations: [Acute recurrent [...] apnea (adult) (pediatric) Chronic Residual codes; unclassified (4 sources) Obstructive sleep apnea of adult; Translations: [...] source) Other amnesia Episodic Residual codes; unclassified (8 sources) FH: Alzheimer's disease; Translations: [Family history [...] (SUSP) EXPOS COVID-19] Onset: 04-25-2022 Viral infection (19 sources) Verruca vulgaris; Translations: [Other viral warts] [...] sources) H/O: high risk medication; Translations: [Other fci (current) drug therapy] Onset: 10-30-2023 10-30-2023 Episodic [...] Test Name Value Interpretation Reference Range Facility Basophils Auto (Bld) [#/Vol] Ordered By: David Bolanos on 12-03-2024 Basophils (Bld) [#/Vol] 0.0 10 3/uL 0.0-0.1 [facility] Basophils/100 WBC Auto (Bld) Ordered By: David Bolanos on 12-03-2024 Basophils/100 WBC (Bld) 0.4 % 0.2-2.0 [facility] Cholesterol in LDL Calc [Mas s/Vol]Ordered By: David Bolanos on 12-03-2024 Cholesterol in LDL [Mass/Vol] 138.0 mg/dL [facility] Comment on above: <100 mg/dl [id number] 0-129 mg/dl NEAR OR ABOVE DAINFON355-231 mg/dl BORDERLINE ONIB205-475 mg/dl HIGH>190 mg/dl VERY HIGH Cholesterol in VLDL Calc [Ma ss/Vol]Ordered By: David Bolanos on 12-03-2024 Cholesterol in VLDL [Mass/Vol] 60.0 mg/dL [facility] Eosinophils/100 WBC Auto (Bl d)Ordered By: David Bolanos on 12-03-2024 Eosinophils/100 WBC (Bld) 1.7 % 0.9-7.0 [facility] Erythrocyte distribution wid th Auto (RBC) [Ratio]Ordered By: David Bolanos on 12-03-2024 Erythrocyte distribution width (RBC) [Ratio] 15.6 % High 11.0-15.0 [facility] Globulin Calc (S) [Mass/Vol] Ordered By: David Bolanos on 12-03-2024 Globulin (S) [Mass/Vol] 3.6 g/dL [facility] Glomerular filtration rate ( GFR) estimation in non- AmericanOrdered By: David Bolanos on 12-03-2024 GFR/1.73 sq M.predicted among non-blacks MDRD (S/P/Bld) [Vol rate/Area] mL/min/{1.73_m2} >=60 mL/min/1.73m 2 [facility] Hematocrit Auto (Bld) [Volum e fraction]Ordered By: David Bolanos on 12-03-2024 Hematocrit (Bld) [Volume fraction] 37.0 % 36.0-48.0 [facility] Hemoglobin [Mass/volume] in BloodOrdered By: David Bolanos on 12-03-2024 Hemoglobin (Bld) [Mass/Vol] 12.6 g/dL 12.0-16.0 [facility] Laboratory - Chemistry and C hemistry - challengeOrdered By: David Bolanos on 12-03-2024 Albumin [Mass/Vol] 3.8 g/dL 3.4-5.0 [facility] ALP [Catalytic activity/Vol] 38 U/L Low 46-116 [facility] ALT [Catalytic activity/Vol] 35 U/L 14-59 [facility] AST [Catalytic activity/Vol] 23 U/L 15-37 [facility] Bilirubin [Mass/Vol] 0.5 mg/dL 0.2-1.0 [facility] Calcium [Mass/Vol] 8.9 mg/dL 8.5-10.1 [facility] Chloride [Moles/Vol] 103 mmol/L 98-107 [facility] Cholesterol [Mass/Vol] 267 mg/dL High <=[address] [facility] Cholesterol in HDL [Mass/Vol] 69 mg/dL High 40-60 [facility] Comment on above: > or =60 mg/dl - LOW CARDIOVASCULAR RISK<40 mg/dl - HIGH CARDIOVASCULAR RISK CO2 [Moles/Vol] 28.3 mmol/L 21.0-32.0 [facility] Creatinine [Mass/Vol] 0.54 mg/dL Low 0.55-1.02 [facility] GFR/1.73 sq M.predicted MDRD (S/P/Bld) [Vol rate/Area] mL/min/{1.73_m2} >=60 mL/min/1.73m 2 [facility] Glucose [Mass/Vol] 103 mg/dL 74-106 [facility] Potassium [Moles/Vol] 3.9 mmol/L 3.5-5.1 [facility] Protein [Mass/Vol] 7.4 g/dL 6.4-8.2 [facility] Sodium [Moles/Vol] 141 mmol/L 136-145 [facility] Triglyceride [Mass/Vol] 300 mg/dL High <=150 [facility] Urea nitrogen [Mass/Vol] 17.0 mg/dL 7.0-18.0 [facility] Urea nitrogen/Creatinine [Mass ratio] 31.5 mg/mg [facility] Laboratory - Hematology and Cell countsOrdered By: David Bolanos on 12-03-2024 Immature granulocytes/100 WBC (Bld) 0.2 % 0.0-0.5 [facility] Leukocytes [#/volume] correc camilo for nucleated erythrocytes in Blood by Automated counOrdered By: David Bolanos on 12-03-2024 WBC corrected for nucl RBC Auto (Bld) [#/Vol] 5.2 10 3/uL 4.0-11.0 [facility] Lymphocytes Auto (Bld) [#/Vo l]Ordered By: David Bolanos on 12-03-2024 Lymphocytes (Bld) [#/Vol] 1.7 10 3/uL 1.2-3.8 [facility] Lymphocytes/100 WBC Auto (Bl d)Ordered By: David Bolanos on 12-03-2024 Lymphocytes/100 WBC (Bld) 31.9 % 20.5-60.0 [facility] MCH Auto (RBC) [Entitic mass ]Ordered By: David Bolanos on 12-03-2024 MCH (RBC) [Entitic mass] 32.6 pg 26.7-34.0 [facility] MCHC Auto (RBC) [Mass/Vol]Or dered By: David Bolanos on 12-03-2024 MCHC (RBC) [Mass/Vol] 34.1 g/dL 29.9-35.2 [facility] MCV Auto (RBC) [Entitic vol] Ordered By: David Bolanos on 12-03-2024 MCV (RBC) [Entitic vol] 95.9 fL 81.0-99.0 [facility] Microalbumin [Mass/volume] i n UrineOrdered By: David Bolanos on 12-03-2024 Albumin DL <= 20 mg/L (U) [Mass/Vol] 1.8 mg/dL <=30.0 [facility] Monocytes Auto (Bld) [#/Vol] Ordered By: David Bolanos on 12-03-2024 Monocytes (Bld) [#/Vol] 0.6 10 3/uL 0.3-0.8 [facility] Monocytes/100 WBC Auto (Bld) Ordered By: David Bolanos on 12-03-2024 Monocytes/100 WBC (Bld) 10.8 % 1.7-12.0 [facility] Neutrophils Auto (Bld) [#/Vo l]Ordered By: David Bolanos on 12-03-2024 Neutrophils (Bld) [#/Vol] 2.8 10 3/uL 1.4-6.5 [facility] Neutrophils/100 WBC Auto (Bl d)Ordered By: David Bolanos on 12-03-2024 Neutrophils/100 WBC (Bld) 55.0 % 43.0-75.0 [facility] No Panel InformationOrdered By: David Bolanos on 12-03-2024 Eosinophils # (Auto) 0.1 10 3/uL 0.0-0.7 [facility] Immature Granulocyte # (Auto) 0.01 10 3/uL 0.00-0.03 [facility] Urine Random Creatinine 150.99 mg/dL 20.00-300. 00 [facility] Platelet mean volume Auto (B ld) [Entitic vol]Ordered By: David Bolanos on 12-03-2024 Platelet mean volume (Bld) [Entitic vol] 10.5 fL 9.5-13.5 [facility] Platelets Auto (Bld) [#/Vol] Ordered By: David Bolanos on 12-03-2024 Platelets (Bld) [#/Vol] 280 10 3/uL 150-450 [facility] RBC Auto (Bld) [#/Vol]Ordere d By: David Bolanos on 12-03-2024 RBC (Bld) [#/Vol] 3.86 10 6/uL Low 4.20-5.[address] [facility] Serum or plasma albumin/glob ulin mass ratioOrdered By: David Bolanos on 12-03-2024 Albumin/Globulin [Mass ratio] 1.1 {ratio} [facility] Serum or plasma anion gap de terminationOrdered By: David Bolanos on 12-03-2024 Anion gap [Moles/Vol] 13.6 mmol/L [facility] Serum or plasma total choles terol/high density lipoprotein (HDL) cholesterol mass ratOrdered By: David Bolanos on 12-03-2024 Cholesterol.total/Mickie sterol in HDL [Mass ratio] 3.9 {ratio} [facility] Comment on above: 3.3 - 4.4 LOW RISK4. 4 - 7.1 AVERAGE RISK7.1 - 11.0 MODERATE RISK>11.0 HIGH RISK Urine microalbumin/creatinin e mass ratioOrdered By: David Bolanos on 12-03-2024 Albumin/Creatinine DL <= 20 mg/L (U) [Mass ratio] 11.9 mg/g 0.0-29.9 [facility] Comment on above: NO MICROALBUMINURIA 0-29 MG/GCLINICAL MICROALBUMINURIA 30-300 MG/GMACROALBUMINURIA >300 MG/G CNOVSPon 06-29-2024 CNOVSP Visit (SP) Office ([place]) ---- PRIYAPARTH HERNANDEZ ([id number]) 1955 F Date Time Provider Department 06/29/24 [...] 1,500 mg by mouth once daily. Fish Oil-[place]-3 Fatty Acids (FISH OIL) 340-1,000 mg cap [...] Submandibular, cervica (more content not included)... Normal [facility] Basophils Auto (Bld) [#/Vol] on 05-17-2024 Basophils (Bld) [#/Vol] Automated basoph il count 0.0-0.1 [facility] Basophils/100 WBC Auto (Bld) on 05-17-2024 Basophils/100 WBC (Bld) Automated basoph il % 0.2-2.0 [facility] Eosinophils/100 WBC Auto (Bl d)on 05-17-2024 Eosinophils/100 WBC (Bld) Automated eosinophil % 0.9-7.0 [facility] Erythrocyte distribution wid th Auto (RBC) [Ratio]on 05-17-2024 Erythrocyte distribution width (RBC) [Ratio] Erythrocyte distribution width [Ratio] by Automated count 11.0-15.0 [facility] Estimated glomerular filtrat ion rate (GFR) non- Americanon 05-17-2024 GFR/1.73 sq M.predicted among non-blacks MDRD (S/P/Bld) [Vol rate/Area] Estimated glomerular filtration rate (GFR) non- >=60 mL/min/1.73m 2 [facility] Globulin Calc (S) [Mass/Vol] on 05-17-2024 Globulin (S) [Mass/Vol] Serum globulin measurement by calculation (mass/volume) [facility] Hematocrit Auto (Bld) [Volum e fraction]on 05-17-2024 Hematocrit (Bld) [Volume fraction] Hematocrit [Volume Fraction] of Blood by Automated count 36.0-48.0 [facility] Hemoglobin [Mass/volume] in Bloodon 05-17-2024 Hemoglobin (Bld) [Mass/Vol] Hemoglobin [Mass/volume] in Blood 12.0-16.0 [facility] Laboratory - Chemistry and C hemistry - challengeon 05-17-2024 Albumin [Mass/Vol] 3.6 g/dL 3.4-5.0 [facility] ALP [Catalytic activity/Vol] 42 U/L Low 46-116 [facility] ALT [Catalytic activity/Vol] 32 U/L 14-59 [facility] AST [Catalytic activity/Vol] 22 U/L 15-37 [facility] Bilirubin [Mass/Vol] 0.4 mg/dL 0.2-1.0 [facility] Calcium [Mass/Vol] 9.4 mg/dL 8.5-10.1 [facility] Chloride [Moles/Vol] 101 mmol/L 98-107 [facility] CO2 [Moles/Vol] 29.0 mmol/L 21.0-32.0 [facility] Creatinine [Mass/Vol] 0.69 mg/dL 0.55-1.02 [facility] GFR/1.73 sq M.predicted MDRD (S/P/Bld) [Vol rate/Area] mL/min/{1.73_m2} >=60 mL/min/1.73m 2 [facility] Glucose [Mass/Vol] 136 mg/dL High 74-106 [facility] Potassium [Moles/Vol] 4.1 mmol/L 3.5-5.1 [facility] Protein [Mass/Vol] 7.2 g/dL 6.4-8.2 [facility] Sodium [Moles/Vol] 140 mmol/L 136-145 [facility] Urea nitrogen [Mass/Vol] 11.0 mg/dL 7.0-18.0 [facility] Urea nitrogen/Creatinine [Mass ratio] 15.9 mg/mg [facility] Laboratory - Hematology and Cell countson 05-17-2024 Immature granulocytes/100 WBC (Bld) 0.3 % 0.0-0.5 [facility] Leukocytes [#/volume] correc camilo for nucleated erythrocytes in Blood by Automated counon 05-17-2024 WBC corrected for nucl RBC Auto (Bld) [#/Vol] Leukocytes [#/volume] corrected for nucleated erythrocytes in Blood by Automated coun 4.0-11.0 [facility] Lymphocytes Auto (Bld) [#/Vo l]on 05-17-2024 Lymphocytes (Bld) [#/Vol] Lymphocytes [#/volume] in Blood by Automated count 1.2-3.8 [facility] Lymphocytes/100 WBC Auto (Bl d)on 05-17-2024 Lymphocytes/100 WBC (Bld) Lymphocytes/100 leukocytes in Blood by Automated count Low 20.5-60.0 [facility] MCH Auto (RBC) [Entitic mass ]on 05-17-2024 MCH (RBC) [Entitic mass] MCH [Entitic mass] by Automated count 26.7-34.0 [facility] MCHC Auto (RBC) [Mass/Vol]on 05-17-2024 MCHC (RBC) [Mass/Vol] MCHC [Mass/volume] by Automated count 29.9-35.2 [facility] MCV Auto (RBC) [Entitic vol] on 05-17-2024 MCV (RBC) [Entitic vol] MCV [Entitic volume] by Automated count 81.0-99.0 [facility] Monocytes Auto (Bld) [#/Vol] on 05-17-2024 Monocytes (Bld) [#/Vol] Automated blood monocyte count High 0.3-0.8 [facility] Monocytes/100 WBC Auto (Bld) on 05-17-2024 Monocytes/100 WBC (Bld) Automated monocy te % High 1.7-12.0 [facility] Neutrophils Auto (Bld) [#/Vo l]on 05-17-2024 Neutrophils (Bld) [#/Vol] Neutrophils [#/volume] in Blood by Automated count 1.4-6.5 [facility] Neutrophils/100 WBC Auto (Bl d)on 05-17-2024 Neutrophils/100 WBC (Bld) Automated neutrophil % 43.0-75.0 [facility] No Panel Informationon 05-17 Eosinophils # (Auto) 0.1 10 3/uL 0.0-0.7 [facility] Immature Granulocyte # (Auto) 0.02 10 3/uL 0.00-0.03 [facility] Platelet mean volume Auto (B ld) [Entitic vol]on 05-17-2024 Platelet mean volume (Bld) [Entitic vol] Platelet mean volume [Entitic volume] in Blood by Automated count 9.5-13.5 [facility] Platelets Auto (Bld) [#/Vol] on 05-17-2024 Platelets (Bld) [#/Vol] Platelets [#/volume] in Blood by Automated count 150-450 [facility] RBC Auto (Bld) [#/Vol]on RBC (Bld) [#/Vol] Erythrocytes [#/volume] in Blood by Automated count Low 4.20-5.40 [facility] Serum or plasma albumin/glob ulin mass ratioon 05-17-2024 Albumin/Globulin [Mass ratio] Serum or plasma albumin/globulin mass ratio [facility] Serum or plasma anion gap de terminationon 05-17-2024 Anion gap [Moles/Vol] Serum or plasma anion gap determination [facility] Ambulatory Visit Summaryon 0 05-10-2024 Ambulatory Visit Summary Ambulatory Visit Summary PARTH POWERS :1955 Visit Date:05/10/2024 Ambulatory Visit Instructions Your Diagnosis Urge incontinence Stress incontinence Your Care Team Attending Physician - SERGIO [...] of therapeutic substance into bladder wall (11/19/2016), [place] node biopsy (03/2012), Lumpectomy (02/2012), External beam [...] Sandeep HILL MD Where: [facility] [place] [address] [place] [address] [place] [address]- You Need to Schedule the Following Appointments Follow Up with Sandeep HILL MD, GIULIA When: Comments: 1 yr (no labs) Where: [facility] [address], [place] [address]- [phone] Medications What How Much When Instructions Unchanged [...] Aspirin long (more content not included)... Normal [facility] Urology Office/Clinic Noteon 05-10-2024 Urology Office/Clinic Note [...] pads Follow-up With When Contact Information SERGIO DKYES, Sandeep Simmons, URL [facility] [address], [place] [phone] Additional Instructions: 1 yr (no labs) Patient Education Kegel Exercises I, Ninoska Gold, personally scribed for Dr. Hill on 05/10/2024 09:30:34. . Documentation recorded by the scribeNinoska, accurately reflects the services(s) I performed and decisions made by me. Authenticated by Dr. Hill on 05/10/2024 09:35:33. Problem List/Past Medical History Ongoing Anticoagulated Aspirin long-term use Eczema Esophageal reflux History of breast cancer Hyperlipidemia Hypertension FDC current use of anticoagulant therapy Mixed incontinence Neuropathy Stress incontinence Urge incontinence Urinary urgency Historical No qualifying data Procedure/Surgical History Injection of therapeutic substance into bladder wall (05/28/2022), Injection of therapeutic substance into bladder wall (02/06/2021), Cystoscopy (10/26/2019), Bilateral mastectomy (02/2019), Injection of therapeutic substance into bladder wall (02/17/2018), Injection of therapeutic substance into bladder wall (11/19/2016), [place] node biopsy (03/2012), Lumpectomy (02/2012), External beam [...] Household tobacco (more content not included)... 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 Mixed incontinence Neuropathy Stress incontinence Urge incontinence Urinary urgency Historical No qualifying data Procedure/Surgical History Injection of therapeutic substance into bladder wall (05/28/2022), Injection of therapeutic substance into bladder wall (02/06/2021), Cystoscopy (10/26/2019), Bilateral mastectomy (02/2019), Injection of therapeutic substance into bladder wall (02/17/2018), Injection of therapeutic substance into bladder wall (11/19/2016), [place] node biopsy (03/2012), Lumpectomy (02/2012), External beam [...] Immunizations Vaccine Date Status Comments SARS-CoV-2 (COVID-19) mRNAMUL.ORD![id number] 01/23/2022 Recorded influenza virus vaccine, inactivated 01/03/2022 Recorded SARS-CoV-2 (COVID-19) mRNA BNT-162b2 vax 01/22/2021 Recorded 2022-05-20: [id number] pneumococcal 23-valent vaccine 11/09/2020 Recorded SARS-CoV-2 (COVID-19) mRNA BNT-162b2 vax 06/16/2020 Recorded CLARITA (more content not included)... Normal [facility] Comment on above: Result Comment: Elec [...] PARTH POWERS/Sex: 1955 Female Med Rec #: [id number] Physician: Sandeep HILL MD Financial #: [id number] Pt. Type: O Room/Bed: / Admit/Disch: 10/21/23 07:47:17 - Institution: Case Times FTURO Entry 1 Patient Times In Room 10/21/23 10:17:00 Out Room 10/21/23 10:35:00 Procedure Times Start 10/21/23 10:24:00 Stop 10/21/23 10:29:00 Anesthesia Times Last Modified By: Ok LIVINGSTON, Dalia Geller 10/21/23 10:30:02 General Comments: BOTOX 100 UNITS LOT #: [id number], EXP DATE: 07/2025 -Margarito RALPH RN Case Attendance FTURO Entry 1 Entry 2 Entry 3 Case Attendee SERGIO DYKES, Sandeep Ralph RN, Sussy Olivares Role Performed Surgeon - Primary Commissary Helper - Primary Scrub - Primary Time In [...] By: Dalia Ralph RN 10/21/23 10:38 Normal [facility] Main OR Preoperative Recordo n 10-21-2023 Main OR Preoperative Record Main OR Preoperative Record Holding Area Document Type FTURO Summary Primary Physician: Sandeep HILL MD Finalized Date/Time: 10/21/23 10:03:41 Pt. Name: PARTH POWERS/Sex: 1955 Female Med Rec #: [id number] Physician: Sandeep HILL MD Financial #: [id number] Pt. Type: O Room/Bed: / Admit/Disch: 10/21/23 [...] HADLEY Shi RN, Ruthann 10/21/23 10:03 Normal [facility] Operative Reporton Operative Report Operative Report Patient: [...] with antibiotic coverage, Follow up arranged. Normal [facility] Comment on above: Result Comment: Elec tronically Signed By: SERGIO DYKES, Sandeep Simmons\.jose francisco\Date and Time Signed: 10/21/23 10:34 EDT Screenson 09-25-2023 Screens [id number] Normal [facility] Ambulatory Visit Summaryon 0 09-23-2023 Ambulatory Visit [...] of therapeutic substance into bladder wall (11/19/2016), [place] node biopsy (03/2012), Lumpectomy (02/2012), External beam [...] DYKES, Sandeep Simmons Where: [facility] Patient Educationon 09-23-19 Patient Education [...] health care provider. General instructions ? Take gnpv-zoe-gkihdzo and prescription medicines only as told by [...] monitor yo (more content not included)... Normal [facility] XR SHOULDER LT 2V or >on XR [...] by: IVÁN REY Date: 2022-06-26 14:15 Normal [facility] Basophils Auto (Bld) [#/Vol] Ordered By: Regina Biggs on 05-01-2022 Basophils (Bld) [#/Vol] 0.0 10*3/uL 0.0-0.2 [facility] Basophils/100 WBC Auto (Bld) Ordered By: Regina Biggs on 05-01-2022 Basophils/100 WBC (Bld) 0.5 % . F [facility] Body fluid albumin measureme nt (mass/volume)Ordered By: Regina Biggs on 05-01-2022 Albumin (Body fld) [Mass/Vol] 4.0 g/dL 3.2-5.5 [facility] Creatinine and Glomerular fi ltration rate.predicted panel (S/P/Bld)Ordered By: Regina Biggs on 05-01-2022 Creatinine [Mass/Vol] 0.50 mg/dL 0.44-1.03 [facility] Eosinophils Auto (Bld) [#/Vo l]Ordered By: Regina Biggs on 05-01-2022 Eosinophils (Bld) [#/Vol] 0.1 10*3/uL 0.0-0.45 [facility] Eosinophils/100 WBC Auto (Bl d)Ordered By: Regina Biggs on 05-01-2022 Eosinophils/100 WBC (Bld) 2.1 % . [facility] Erythrocyte distribution wid th Auto (RBC) [Ratio]Ordered By: Regina Biggs on 05-01-2022 Erythrocyte distribution width (RBC) [Ratio] 14.6 % 11.9-15.3 [facility] Estimated glomerular filtrat ion rate (GFR) non- AmericanOrdered By: Regina Biggs on 05-01-2022 GFR/1.73 sq M.predicted among non-blacks MDRD (S/P/Bld) [Vol rate/Area] > 60 mL/Min [facility] Globulin Calc (S) [Mass/Vol] Ordered By: Regina Biggs on 05-01-2022 Globulin (S) [Mass/Vol] 2.4 g/dL F [facility] Hematocrit Auto (Bld) [Volum e fraction]Ordered By: Regina Biggs on 05-01-2022 Hematocrit (Bld) [Volume fraction] 41.0 % 34.0-46.4 [facility] Hemoglobin [Mass/volume] in BloodOrdered By: Regina Biggs on 05-01-2022 Hemoglobin (Bld) [Mass/Vol] 13.6 g/dL 11.8-15.4 [facility] Leukocytes [#/volume] correc cmailo for nucleated erythrocytes in Blood by Automated counOrdered By: Regina Biggs on 05-01-2022 WBC corrected for nucl RBC Auto (Bld) [#/Vol] 5.7 10*3/uL 3.8-11.6 [facility] Lymphocytes Auto (Bld) [#/Vo l]Ordered By: Regina Biggs on 05-01-2022 Lymphocytes (Bld) [#/Vol] 1.9 10*3/uL 1.00-4.8 [facility] Lymphocytes/100 WBC Auto (Bl d)Ordered By: Regina Biggs on 05-01-2022 Lymphocytes/100 WBC (Bld) 34.2 % . [facility] MCH Auto (RBC) [Entitic mass ]Ordered By: Regina Biggs on 05-01-2022 MCH (RBC) [Entitic mass] 32.1 pg 24.7-34.3 [facility] MCHC Auto (RBC) [Mass/Vol]Or dered By: Regina Biggs on 05-01-2022 MCHC (RBC) [Mass/Vol] 33.3 g/dL 32.0-35.0 [facility] MCV Auto (RBC) [Entitic vol] Ordered By: Regina Biggs on 05-01-2022 MCV (RBC) [Entitic vol] 96.4 fL 80-100 F [facility] Monocytes Auto (Bld) [#/Vol] Ordered By: Regina Biggs on 05-01-2022 Monocytes (Bld) [#/Vol] 0.6 10*3/uL 0.0-0.8 [facility] Monocytes/100 WBC Auto (Bld) Ordered By: Regina Biggs on 05-01-2022 Monocytes/100 WBC (Bld) 10.7 % . F [facility] Neutrophils Auto (Bld) [#/Vo l]Ordered By: Regina Biggs on 05-01-2022 Neutrophils (Bld) [#/Vol] 3.0 10*3/uL 1.8-7.7 [facility] Neutrophils/100 WBC Auto (Bl d)Ordered By: Regina Biggs on 05-01-2022 Neutrophils/100 WBC (Bld) 52.5 % . [facility] No Panel InformationOrdered By: Regina Biggs on 05-01-2022 Estimated GFR () > 60 mL/Min [facility] Comment on above: GFR estimated refere nce range: According to KDOQI guidelines, <60 ml/min/1.73m2 is sufficient to diagnose a patient with chronic kidney disease. Pharmacy Creatinine Clearance (Chem N/A [facility] Nucleated erythrocytes [Pres ence] in Blood by Automated countOrdered By: Regina Biggs on 05-01-2022 Nucleated RBC Auto Ql (Bld) 0.2 /100{WBC} 0-0.5 [facility] Platelet mean volume Auto (B ld) [Entitic vol]Ordered By: Regina Biggs on 05-01-2022 Platelet mean volume (Bld) [Entitic vol] 8.5 fL 6.3-10.7 [facility] Platelets Auto (Bld) [#/Vol] Ordered By: Regina Biggs on 05-01-2022 Platelets (Bld) [#/Vol] 273 10*3/uL 150-450 [facility] Protein [Mass/volume] in Ser um or PlasmaOrdered By: Regina Biggs on 05-01-2022 Protein [Mass/Vol] 6.4 g/dL 6.1-7.9 [facility] RBC Auto (Bld) [#/Vol]Ordere d By: Regina Biggs on 05-01-2022 RBC (Bld) [#/Vol] 4.25 10*6/uL 3.60-5.[address] [facility] Serum or plasma alanine palumbo otransferase measurement without P-5'-P (enzymatic activiOrdered By: Regina Biggs on 05-01-2022 ALT No additional P-5'-P [Catalytic activity/Vol] 29 U/L 10-60 [facility] Serum or plasma albumin/glob ulin mass ratioOrdered By: Regina Biggs on 05-01-2022 Albumin/Globulin [Mass ratio] 1.7 {ratio} [facility] Serum or plasma alkaline juan sphatase measurement (enzymatic activity/volume)Ordered By: Regina Biggs on 05-01-2022 ALP [Catalytic activity/Vol] 46 U/L 32-92 [facility] Serum or plasma anion gap de terminationOrdered By: Regina Biggs on 05-01-2022 Anion gap [Moles/Vol] 11.6 mmol/L 6.0-15.[address] [facility] Serum or plasma aspartate am inotransferase measurement (enzymatic activity/volume)Ordered By: Regina Biggs on 05-01-2022 AST [Catalytic activity/Vol] 27 U/L 10-42 [facility] Serum or plasma calcium gisele urement (mass/volume)Ordered By: Regina Biggs on 05-01-2022 Calcium [Mass/Vol] 9.8 mg/dL 8.2-10.2 [facility] Serum or plasma chloride christiane surement (moles/volume)Ordered By: Regina Biggs on 05-01-2022 Chloride [Moles/Vol] 97 mmol/L 95-114 [facility] Serum or plasma glucose gisele urement (mass/volume)Ordered By: Regina Biggs on 05-01-2022 Glucose [Mass/Vol] 96 mg/dL 70-100 [facility] Comment on above: ADA recommended refe rence rangeRandom Glucose Reference Range is dependent on time and content of last meal. Glucose of more than 200 mg/dL in a nonstressed, ambulatory subject supports the diagnosis of Diabetes Mellitus. Serum or plasma potassium me asurement (moles/volume)Ordered By: Regina Biggs on 05-01-2022 Potassium [Moles/Vol] 4.0 mmol/L 3.5-5.1 [facility] Serum or plasma sodium measu rement (moles/volume)Ordered By: Regina Biggs on 05-01-2022 Sodium [Moles/Vol] 133 mmol/L 136-146 [facility] Serum or plasma total biliru bin measurement (mass/volume)Ordered By: Regina Biggs on 05-01-2022 Bilirubin [Mass/Vol] 0.4 mg/dL 0.3-1.2 [facility] Serum or plasma total carbon dioxide measurement (moles/volume)Ordered By: Regina Biggs on 05-01-2022 CO2 [Moles/Vol] 28.4 mmol/L 22.0-30.0 [facility] Serum or plasma urea nitroge n measurement (mass/volume)Ordered By: Regina Biggs on 05-01-2022 Urea nitrogen [Mass/Vol] 15 mg/dL 9- [facility] WBC Auto (Bld) [#/Vol]Ordere d By: Regina Biggs on 05-01-2022 WBC (Bld) [#/Vol] 5.7 10*3/uL 3.8-11.6 [facility] Covid-19 PCR ([facility])on 03-16 SARS-CoV-2 (COVID-19) RNA DOUG+probe Ql (Unsp spec) Not detected Normal NOT DETECTED [facility] Comment on above: Result Comment: This test is not yet approved or cleared by the [place] FDA. When there are no FDA-approved or cleared tests available, and other criteria are met, FDA can make tests available under an emergency access mechanism called an Emergency Use Authorization (EUA). The EUA for this test is supported by the [place] of Health and Human Service's (HHS's) declaration [...] SARS-CoV-2. Performed By: #### C VDTB #### [facility] [address] [address] [address] Man Ortiz XR LSPINE MIN 4 VIEWSon 090 XR LSPINE MIN 4 VIEWS EXAMINATION: XR [...] GILLES JIMENEZ Date: 2021-12-19 18:42 Normal [facility] CBC AUTO DIFFon 11-12-2021 BASO # 0.0 103/ul Normal 0.0-0.1 [facility] Comment on above: Performed By: #### C BC #### [facility] [address] [place] [address] Dr. Man Ortiz Basophils/100 WBC (Bld) 0.4 % Normal 0.2-2.0 [facility] Comment on above: Performed By: #### C BC #### [facility] [address] [place] [address] Dr. Man Ortiz EO # 0.1 103/ul Normal 0.0-0.7 [facility] Comment on above: Performed By: #### C BC #### [facility] [address] [place] [address] Dr. Man Ortiz Eosinophils/100 WBC (Bld) 1.6 % Normal 0.9-7.0 [facility] Comment on above: Performed By: #### C BC #### [facility] [address] [place] [address] Dr. Man Ortiz Erythrocyte distribution width (RBC) [Ratio] 15.1 % Critically high 11.0-15.0 [facility] Comment on above: Performed By: #### C BC #### [facility] [address] [place] [address] Dr. Man Ortiz Hematocrit (Bld) [Volume fraction] 37.8 % Normal 36.0-48.0 [facility] Comment on above: Performed By: #### C BC #### [facility] [address] [place] [address] Dr. Man Ortiz Hemoglobin (Bld) [Mass/Vol] 12.8 g/dL Normal 12.0-16.0 [facility] Comment on above: Performed By: #### C BC #### [facility] [address] [place] [address] Dr. Man Ortiz IG # 0.02 10e3/ul Normal 0.00-0.03 [facility] Comment on above: Performed By: #### C BC #### [facility] [address] [place] [address] Dr. Man Ortiz IG % 0.4 % Normal 0.0-0.5 [facility] Comment on above: Performed By: #### C BC #### [facility] [address] [place] [address] Dr. Man Ortiz LYMPH # 0.6 103/ul Critically low 1.2-3.8 [facility] Comment on above: Performed By: #### C BC #### [facility] [address] [place] [address] Dr. Man Ortiz Lymphocytes/100 WBC (Bld) 12.0 % Critically low 20.5-60.0 [facility] Comment on above: Performed By: #### C BC #### [facility] [address] [place] [address] Dr. Man Ortiz MANUAL DIFF REQ NO Normal [facility] Comment on above: Performed By: #### C BC #### [facility] [address] [place] [address] Dr. Man Ortiz MCH (RBC) [Entitic mass] 32.7 pg Normal 26.7-34.0 [facility] Comment on above: Performed By: #### C BC #### [facility] [address] [place] [address] Dr. Man Ortiz MCHC (RBC) [Mass/Vol] 33.9 g/dL Normal 29.9-35.2 [facility] Comment on above: Performed By: #### C BC #### [facility] [address] [place] [address] Dr. Man Ortiz MCV (RBC) [Entitic vol] 96.7 fL Normal 81.0-99.0 T [facility] Comment on above: Performed By: #### C BC #### [facility] [address] [place] [address] Dr. Man Ortiz MONO # 0.7 103/ul Normal 0.3-0.8 [facility] Comment on above: Performed By: #### C BC #### [facility] [address] [place] [address] Dr. Man Ortiz Monocytes/100 WBC (Bld) 14.9 % Critically high 1.7-12. 0 [facility] Comment on above: Performed By: #### C BC #### [facility] [address] [place] [address] Dr. Man Ortiz NEUT # 3.5 103/ul Normal 1.4-6.5 [facility] Comment on above: Performed By: #### C BC #### [facility] [address] [place] [address] Dr. Man Ortiz Neutrophils/100 WBC (Bld) 70.7 % Normal 43.0-75.0 [facility] Comment on above: Performed By: #### C BC #### [facility] [address] [place] [address] Dr. Man Ortiz Platelet mean volume (Bld) [Entitic vol] 9.8 fL Normal 9.5-13.5 [facility] Comment on above: Performed By: #### C BC #### [facility] [address] [place] [address] Dr. Man Ortiz PLT 232 103/ul Normal 150-450 [facility] Comment on above: Performed By: #### C BC #### [facility] [address] [place] [address] Dr. Man Ortiz RBC 3.91 106/ul Critically low 4.20-5.40 [facility] Comment on above: Performed By: #### C BC #### [facility] [address] [place] [address] Dr. Man Ortiz WBC 5.0 103/ul Normal 4.0-11.0 [facility] Comment on above: Performed By: #### C BC #### [facility] [address] [place], [place] [address] Dr. Man Ortiz GLYCOHEMOGLOBIN A1Con 2021 ADA RECOMMENDATION SEE BELOW Normal [facility] Comment on above: Result Comment: ADA RECOMMENDED LIMIT 4.0 - 6.0 ADA THERAPEUTIC TARGET < 7.0 ACTION SUGGESTED > 7.0 Performed By: #### A 1C ####[facility] [address] [id number][address] Man Ortiz Glucose [Mass/Vol] 134 mg/dL Normal [facility] Comment on above: Performed By: #### A 1C ####[facility] [address] [address]DrJaleesa Ortiz HbA1c (Bld) [Mass fraction] 6.3 % Critically high 4.5-6.2 [facility] Comment on above: Performed By: #### A 1C ####[facility] [address] [address]Dr. Man Ortiz LIPID PROFILEon 11-12-2021 CHOL-HDL RATIO NORM SEE BELOW Normal [facility] Comment on above: Result Comment: 3.3 - 4.4 LOW RISK 4.4 - 7.1 AVERAGE RISK 7.1 - 11.0 MODERATE RISK >11.0 HIGH RISK Performed By: #### C MP, LIPID ####[facility] [address] [id number]. Man Ortiz Cholesterol [Mass/Vol] 233 mg/dL Critically high <=200 [facility] Comment on above: Performed By: #### C MP, LIPID ####[facility] [address] [id number]. Man Ortiz Cholesterol in HDL [Mass/Vol] 61 mg/dL Critically high 40-60 [facility] Comment on above: Performed By: #### C MP, LIPID ####[facility] [address] [id number]. Man Ortiz Cholesterol in LDL [Mass/Vol] 123.6 mg/dL Normal [facility] Comment on above: Performed By: #### C MP, LIPID ####[facility] [address] [id number]. Man Ortiz Cholesterol.total/Mickie sterol in HDL [Mass ratio] 3.8 {ratio} Normal [facility] Comment on above: Performed By: #### C MP, LIPID ####[facility] [address] [id number]. Man Ortiz HDL NORMAL > or = 60 mg/dl - LOW CARDIOVASCULAR RISK <40 mg/dl - HIGH CARDIOVASCULAR RISK Normal [facility] Comment on above: Performed By: #### C MP, LIPID ####[facility] [address] [address]Dr. Man Ortiz LDL CALC NORMAL SEE BELOW Normal [facility] Comment on above: Result Comment: <100 mg/dl OPTIMAL 100 - 129 mg/dl NEAR OR ABOVE OPTIMAL 130 - 159 mg/dl BORDERLINE HIGH 160 - 189 mg/dl HIGH >190 mg/dl VERY HIGH Performed By: #### C MP, LIPID ####[facility] [address] [address]Dr. Man Ortiz Triglyceride [Mass/Vol] 242 mg/dL Critically high <=150 [facility] Comment on above: Performed By: #### C MP, LIPID ####[facility] [address] [address]Dr. Man Ortiz VLDL CALC 48.4 mg/dL Normal [facility] Comment on above: Performed By: #### C MP, LIPID ####[facility] [address] [address]Dr. Man Ortiz PROF 14(COMP METB)on 022 Albumin [Mass/Vol] 3.7 g/dL Normal 3.4-5.0 [facility] Comment on above: Performed By: #### C MP, LIPID ####[facility] [address] [id number]. Man Ortiz Albumin/Globulin [Mass ratio] 1.2 {ratio} Normal [facility] Comment on above: Performed By: #### C MP, LIPID ####[facility] [address] [id number]. Man Ortiz ALP [Catalytic activity/Vol] 36 U/L Critically low 46-116 [facility] Comment on above: Performed By: #### C MP, LIPID ####[facility] [address] [place], [place] [address]Sg. Man Ortiz ALT [Catalytic activity/Vol] 46 U/L Normal 14-59 [facility] Comment on above: Performed By: #### C MP, LIPID ####[facility] [address] [id number]. Man Ortiz Anion gap [Moles/Vol] 13.5 mmol/L Normal [place] Comment on above: Performed By: #### C MP, LIPID ####[facility] [address] [id number]. Man Ortiz AST [Catalytic activity/Vol] 33 U/L Normal 15-37 [facility] Comment on above: Performed By: #### C MP, LIPID ####[facility] [address] [id number]. Man Ortiz Bilirubin [Mass/Vol] 0.5 mg/dL Normal 0.2-1.0 [facility] Comment on above: Performed By: #### C MP, LIPID ####[facility] [address] [id number]. Man Ortiz Calcium [Mass/Vol] 8.9 mg/dL Normal 8.5-10.1 [facility] Comment on above: Performed By: #### C MP, LIPID ####[facility] [address] [id number]. Man Ortiz Chloride [Moles/Vol] 101 mmol/L Normal 98-107 [facility] Comment on above: Performed By: #### C MP, LIPID ####[facility] [address] [id number]. Man Ortiz CO2 [Moles/Vol] 28.5 mmol/L Normal 21.0-32.0 [facility] Comment on above: Performed By: #### C MP, LIPID ####[facility] [address] [id number]. Man Ortiz Creatinine [Mass/Vol] 0.62 mg/dL Normal 0.55-1.02 [facility] Comment on above: Performed By: #### C MP, LIPID ####[facility] [address] [id number]. Man Ortiz EGFR-AF DOMINICAN >60 Normal >=60 [facility] Comment on above: Performed By: #### C MP, LIPID ####[facility] [address] [id number]. Man Ortiz EGFR-NON AF DOMINICAN >60 Normal >=60 [facility] Comment on above: Performed By: #### C MP, LIPID ####[facility] [address] [place] [id number]. Man Ortiz Globulin (S) [Mass/Vol] 3.2 g/dL Normal [facility] Comment on above: Performed By: #### C MP, LIPID ####[facility] [address] [place] [id number]. Man Ortiz Glucose [Mass/Vol] 114 mg/dL Critically high 74-106 [facility] Comment on above: Performed By: #### C MP, LIPID ####[facility] [address] [place] [id number]. Man Ortiz Potassium [Moles/Vol] 4.0 mmol/L Normal 3.5-5.1 [facility] Comment on above: Performed By: #### C MP, LIPID ####[facility] [address] [place] [id number]. Man Ortiz Protein [Mass/Vol] 6.9 g/dL Normal 6.4-8.2 [facility] Comment on above: Performed By: #### C MP, LIPID ####[facility] [address] [place] [id number]. Man Ortiz Sodium [Moles/Vol] 139 mmol/L Normal 136-145 [facility] Comment on above: Performed By: #### C MP, LIPID ####[facility] [address] [place], [place] [address]Ns. Man Ortiz Urea nitrogen [Mass/Vol] 12.0 mg/dL Normal 7.0-18.0 [facility] Comment on above: Performed By: #### C MP, LIPID ####[facility] [address] [place], [place] [address]Qp. Man Ortiz Urea nitrogen/Creatinine [Mass ratio] 19.4 mg/mg Normal [facility] Comment on above: Performed By: #### C MP, LIPID ####[facility] [address] [place], [place] [address]Bt. Man Ortiz XR DEXA BONE DENSITYon 10-09 [...] by: GILLES JIMENEZ Date: 2021-10-09 17:05 Normal [facility] PAP ACOG PANEL 2: 30 to 65on 09-08-2021 . . Normal [facility] Comment on above: Result Comment: Perf ormed at: BA Performed By: #### [id number] #### [facility] [address] [address] [address] Man Ortiz Age Gdln ACOG Testing Comment Normal [facility] Comment on above: Result Comment: <21 or >65 or no age provided Performed By: #### [id number] #### [facility] [address] [place] [address] [address] Man Ortiz DIAGNOSIS: Comment Normal [facility] Comment on above: Result Comment: NEGA TIVE FOR INTRAEPITHELIAL LESION OR MALIGNANCY. CELLULAR CHANGES ASSOCIATED WITH ATROPHY ARE PRESENT. Performed at: BA Performed By: #### [id number] #### [facility] [address] [place] [address] Dr. Man Ortiz Methodology: Comment Normal [facility] Comment on above: Result Comment: This liquid based ThinPrep(R) pap test was screened with the use of an image guided system. Performed at: WB Performed By: #### [id number] #### [facility] [address] [place] [address] Dr. Man Ortiz Note: Comment Normal [facility] Comment on above: Result Comment: The Pap smear is a screening test designed to aid in the detection of premalignant and malignant conditions of the uterine cervix. It is not a diagnostic procedure and should not be used as the sole means of detecting cervical cancer. Both false-positive and false-negative reports do occur. . Performed at: WB Performed By: #### [id number] #### [facility] [address] [place] [address] Dr. Man Ortiz Performed by: Comment Normal [facility] Comment on above: Result Comment: Uvaldo Wood, Primary Education Professor (ASCP) Performed at: BA Performed By: #### [id number] #### [facility] [address] [place] [address] Dr. Man Ortiz Specimen adequacy: Comment Normal [facility] Comment on above: Result Comment: Sati sfactory for evaluation. Endocervical component may not be distinguished in cases of atrophy. Performed at: BA Performed By: #### [id number] #### [facility] [address] [place] [address] Dr. Man Ortiz XR hip RT min 2V(w/wo pelvis )*on 01-17-2021 XR hip RT min 2V(w/wo pelvis)* [facility] [employer] Other XR hip RT min 2V(w/wo pelvis)* [facility] [employer] Other XR hip RT min 2V(w/wo pelvis)* [address] [place] [address] [employer] Other XR hip RT min 2V(w/wo pelvis)* [place] [address] [employer] Other XR hip RT min 2V(w/wo pelvis)* XRay Report [employer] Other XR hip RT min 2V(w/wo pelvis)* Signed [employer] Other XR hip RT min 2V(w/wo pelvis)* Patient: Parth Powers MR#: [id number] [employer] Other XR hip RT min 2V(w/wo pelvis)* [address] [employer] Other XR hip RT min 2V(w/wo pelvis)* : 1955 Acct:[id number] [employer] Other XR hip RT min 2V(w/wo pelvis)* Age/Sex: 65 / F ADM Date: 01/17/21 [employer] Other XR hip RT min 2V(w/wo pelvis)* Loc: [facility] Room: Type: [facility] [employer] Other XR hip RT min 2V(w/wo pelvis)* Attending Dr: Elder Vigil MD [employer] Other XR hip RT min 2V(w/wo pelvis)* Ordering Provider: Elder Vigil MD [employer] Other XR hip RT min 2V(w/wo pelvis)* Date of Service: 01/17/21 [employer] Other XR hip RT min 2V(w/wo pelvis)* XR/XR hip RT min 2V(w/wo pelvis)*: Arthritis of right hip [employer] Other XR hip RT min 2V(w/wo pelvis)* Copies to: Elder Vigil MD [employer] Other XR hip RT min 2V(w/wo pelvis)* XR hip RT min 2V(w/wo pelvis)* 01/17/2021 9:28 AM [employer] Other XR hip RT min 2V(w/wo pelvis)* SIGNS AND SYMPTOMS: Right leg weakness with pain in right groin [employer] Other XR hip RT min 2V(w/wo pelvis)* PROTOCOL: Frontal radiograph the pelvis with frontal and frog-leg views of the right hip [employer] Other XR hip RT min 2V(w/wo pelvis)* COMPARISON: None [employer] Other XR hip RT min 2V(w/wo pelvis)* FINDINGS: [employer] Other XR hip RT min 2V(w/wo pelvis)* There is enthesophyte formation of the greater trochanters bilaterally. The joint spaces of the [employer] Other XR hip RT min 2V(w/wo pelvis)* hips are preserved. The bony ring of the pelvis is grossly intact. Vascular calcifications are [employer] Other XR hip RT min 2V(w/wo pelvis)* present in the pelvis. There is no evidence of fracture or dislocation. [employer] Other XR hip RT min 2V(w/wo pelvis)* XR/XR hip RT min 2V(w/wo pelvis)* [employer] Other XR hip RT min 2V(w/wo pelvis)* IMPRESSION: [employer] Other XR hip RT min 2V(w/wo pelvis)* No fracture or dislocation. [employer] Other XR hip RT min 2V(w/wo pelvis)* No significant degenerative change within the joint spaces of the hips. [employer] Other XR hip RT min 2V(w/wo pelvis)* Impression dictated by: Chilango Case M.D.01/17/2021 1:00 PM [employer] Other XR hip RT min 2V(w/wo pelvis)* Dictation Location: RADIO-PC-12 [employer] Other XR hip RT min 2V(w/wo pelvis)* Transcribed By: GIOVANNY 01/17/21 1300 [employer] Other XR hip RT min 2V(w/wo pelvis)* Dictated By: Chilango Case II, MD 01/17/21 1259 [employer] Other XR hip RT min 2V(w/wo pelvis)* Signed By: [employer] Other XR hip RT min 2V(w/wo pelvis)* 01/17/21 1300 [employer] Other XR lumbar spine AP/LAT/FLX/E XTon 01-10-2021 XR lumbar spine AP/LAT/FLX/EXT [facility] [employer] Other XR lumbar spine AP/LAT/FLX/EXT [facility] [employer] Other XR lumbar spine AP/LAT/FLX/EXT [address] [place] [address] [employer] Other XR lumbar spine AP/LAT/FLX/[place] [address] [employer] Other XR lumbar spine AP/LAT/FLX/EXT XRay Report [employer] Other XR lumbar spine AP/LAT/FLX/EXT Signed [employer] Other XR lumbar spine AP/LAT/FLX/EXT Patient: Parth Powers MR#: [id number] [employer] Other XR lumbar spine AP/LAT/FLX/EXT [address] [employer] Other XR lumbar spine AP/LAT/FLX/EXT : 1955 Acct:[id number] [employer] Other XR lumbar spine AP/LAT/FLX/EXT Age/Sex: 65 / F ADM Date: 01/10/21 [employer] Other XR lumbar spine AP/LAT/FLX/EXT Loc: [facility] Room: Type: [facility] [employer] Other XR lumbar spine AP/LAT/FLX/EXT Attending Dr: Keith Gaspar DO [employer] Other XR lumbar spine AP/LAT/FLX/EXT Ordering Provider: Keith Gaspar DO [employer] Other XR lumbar spine AP/LAT/FLX/EXT Date of Service: 01/10/21 [employer] Other XR lumbar spine AP/LAT/FLX/EXT XR/XR lumbar spine AP/LAT/FLX/EXT: Pain of right lower [employer] Other XR lumbar spine AP/LAT/FLX/EXT extremity;Arthritis of right hip [employer] Other XR lumbar spine AP/LAT/FLX/EXT Copies to: Keith Gaspar DO [employer] Other XR lumbar spine AP/LAT/FLX/EXT AP with lateral neutral, flexion extension views of the lumbar spine [employer] Other XR lumbar spine AP/LAT/FLX/EXT HISTORY: Continued RIGHT hip pain. [employer] Other XR lumbar spine AP/LAT/FLX/EXT COMPARISON:None [employer] Other XR lumbar spine AP/LAT/FLX/EXT Lumbar lordosis is adequate. [employer] Other XR lumbar spine AP/LAT/FLX/EXT No acute lumbar spine fracture is identified. [employer] Other XR lumbar spine AP/LAT/FLX/EXT 5 mm L4-5 degenerative anterolisthesis. Diffuse osteopenia. [employer] Other XR lumbar spine AP/LAT/FLX/EXT Multilevel disc space narrowing most prevalent the L3-4 level. Endplate spurring. Lower lumbar [employer] Other XR lumbar spine AP/LAT/FLX/EXT hypertrophic facet changes. No hypermobility with flexion and extension views. [employer] Other XR lumbar spine AP/LAT/FLX/EXT No paraspinal abnormality seen. [employer] Other XR lumbar spine AP/LAT/FLX/EXT SI joints are maintained. [employer] Other XR lumbar spine AP/LAT/FLX/EXT XR/XR lumbar spine AP/LAT/FLX/EXT [employer] Other XR lumbar spine AP/LAT/FLX/EXT IMPRESSION: No hypermobility. 5 mm L4-5 anterolisthesis. Diffuse osteopenia. Degenerative change. [employer] Other XR lumbar spine AP/LAT/FLX/EXT Impression dictated by: Tonio Ken M.D.01/10/2021 3:59 PM [employer] Other XR lumbar spine AP/LAT/FLX/EXT Dictation Location: [place] [address] [employer] Other XR lumbar spine AP/LAT/FLX/EXT Transcribed By: [facility] 01/10/21 [facility] [employer] Other XR lumbar spine AP/LAT/FLX/EXT Dictated By: Tonio Ken DO 01/10/21 [facility] [employer] Other XR lumbar spine AP/LAT/FLX/EXT Signed By: [employer] Other XR lumbar spine AP/LAT/FLX/EXT 01/10/21 [facility] [employer] Other [facility] 11-20-19 19 [facility] * * *Final Report* * * * * * SEE BOTTOM OF REPORT FOR ADDENDED TEXT * * * DATE OF EXAM: Nov 19 2018 10:45AM [facility] 0621 - [facility] DIAGNOSTIC LT / PROCEDURE REASON: Abnormal findings on diagnostic imaging of breast * * * * Physician Interpretation * * * * RESULT: FINAL REPORT #[id number] - [facility] US BIOPSY BREAST LT #[id number] - [facility] STEREO BX BREAST LT #[id number] - [facility] DIAGNOSTIC LT ULTRASOUND GUIDED BIOPSY LEFT BREAST [...] attempt a stereotactic biopsy (after consultation with [place] technologists and the patient) to see if [...] Musa performed the entire procedure without an assistant to the dean. Correlation is made to exams dated: 10/28/2018 [...] Musa performed the entire procedure without an assistant to the dean. Correlation is made to exams dated: 10/28/2018 [...] location, eight cores were obtained using the [employer] system. The patient received additional local anesthetic [...] momin/clarissa:11/24/2018 16:19:03 Attending Technologist(s): Sima Blackmon, RT(R)(M), [facility] [employer]ical [employer] Dr[employer] Press Operator(s): Virginia Rodriguez, [facility]; Ana Clement RT(R)(M), [facility] Multiple national specialty organizations have released breast cancer screening guidelines for women at average risk for developing breast cancer - guidelines that are based on both evidence and opinion, yet differ on when to start and how often to screen for breast cancer. With representation from Breast Imaging, Internal Medicine, Women's Health, Family Medicine, and Medical/Surgical Oncology, the [facility] has carefully reviewed the data and [...] their providers when to stop screening mammograms. Photograph Retoucher: Clarissa Transcribe Date/Time: Nov 19 2018 10:41A Dictated by: DIANA MUSA MD This examination was interpreted and the report reviewed and electronically signed by: DIANA MUSA MD on Nov 19 2018 4:47PM EST This document has been addended by: DIANA MUSA MD on Nov 24 2018 4:19PM EST [id number] Normal [facility] STEREO BX BREAST LTon [facility] STEREO BX BREAST LT * * *Final Repor t* * * * * * SEE BOTTOM OF REPORT FOR ADDENDED TEXT * * * DATE OF EXAM: Nov 19 2018 10:41AM [facility] 0630 - [facility] STEREO BX BREAST LT / PROCEDURE REASON: Abnormal findings on diagnostic imaging of breast * * * * Physician Interpretation * * * * RESULT: FINAL REPORT #[id number] - [facility] US BIOPSY BREAST LT #[id number] - [facility] STEREO BX BREAST LT #[id number] - [facility] DIAGNOSTIC LT ULTRASOUND GUIDED BIOPSY LEFT BREAST [...] attempt a stereotactic biopsy (after consultation with [place] technologists and the patient) to see if [...] Musa performed the entire procedure without an assistant to the dean. Correlation is made to exams dated: 10/28/2018 [...] Musa performed the entire procedure without an assistant to the dean. Correlation is made to exams dated: 10/28/2018 [...] location, eight cores were obtained using the [employer] system. The patient received additional local anesthetic [...] momin/clarissa:11/24/2018 16:19:03 Attending Technologist(s): Sima Blackmon, RT(R)(M), [facility] [employer] Dr[employer] Press Operator(s): Virginia Rodriguez, [facility]; Ana Clement RT(R)(M), [facility] Multiple national specialty organizations have released breast cancer screening guidelines for women at average risk for developing breast cancer - guidelines that are based on both evidence and opinion, yet differ on when to start and how often to screen for breast cancer. With representation from Breast Imaging, Internal Medicine, Women's Health, Family Medicine, and Medical/Surgical Oncology, the [facility] has carefully reviewed the data and [...] their providers when to stop screening mammograms. Photograph Retoucher: Clarissa Transcribe Date/Time: Nov 19 2018 10:41A Dictated by: DIANA MUSA MD This examination was interpreted and the report reviewed and electronically signed by: DIANA MUSA MD on Nov 19 2018 4:47PM EST This document has been addended by: DIANA MUSA MD on Nov 24 2018 4:19PM EST [id number] Normal [facility] US BIOPSY BREAST LTon [facility] US BIOPSY BREAST LT * * *Final Repor t* * * * * * SEE BOTTOM OF REPORT FOR ADDENDED TEXT * * * DATE OF EXAM: Nov 19 2018 10:42AM [facility] 0597 - [facility] US BIOPSY BREAST LT / PROCEDURE REASON: Abnormal findings on diagnostic imaging of breast * * * * Physician Interpretation * * * * FINAL REPORT #[id number] - [facility] US BIOPSY BREAST LT #[id number] - [facility] STEREO BX BREAST LT #[id number] - [facility] DIAGNOSTIC LT ULTRASOUND GUIDED BIOPSY LEFT BREAST [...] attempt a stereotactic biopsy (after consultation with [place] technologists and the patient) to see if [...] Musa performed the entire procedure without an assistant to the dean. Correlation is made to exams dated: 10/28/2018 [...] Musa performed the entire procedure without an assistant to the dean. Correlation is made to exams dated: 10/28/2018 [...] location, eight cores were obtained using the [employer] system. The patient received additional local anesthetic [...] momin/clarissa:11/24/2018 16:19:03 Attending Technologist(s): Sima Blackmon, RT(R)(M), [facility] [employer] Dr[employer] Press Operator(s): Virginia Rodriguez, [facility]; Ana Clement, RT(R)(M), [facility] Multiple national specialty organizations have released breast cancer screening guidelines for women at average risk for developing breast cancer - guidelines that are based on both evidence and opinion, yet differ on when to start and how often to screen for breast cancer. With representation from Breast Imaging, Internal Medicine, Women's Health, Family Medicine, and Medical/Surgical Oncology, the [facility] has carefully reviewed the data and [...] their providers when to stop screening mammograms. Photograph Retoucher: Clarissa Transcribe Date/Time: Nov 19 2018 10:41A Dictated by : DIANA MUSA MD This examination was interpreted and the report reviewed and electronically signed by: DIANA MUSA MD on Nov 19 2018 4:47PM EST This document has been addended by: DIANA MUSA MD on Nov 24 2018 4:19PM EST [id number] Normal [facility] SURGICAL PATHOLOGYon 019 SURGICAL PATHOLOGY Specimen originated from [facility] Specimen #: [id number] Submitting Physician: Diana Musa M.D. FINAL DIAGNOSIS 1. Left breast, 1 o'clock, middle depth, stoplight clip, stereotactic needle core biopsy (A) - Organizing fat necrosis. 2. Left breast, 2 o'clock, 8 cm from nipple, coil clip, ultrasound-guided needle core biopsy (B) - Organizing fat necrosis. J/thai 11/20/[address] Dori Grossman has seen [...] in two cassettes. Gross examination performed at [place] [id number] [facility] 11/19/2018 5:19:38 PM B. Received in formalin labeled as Left breast are multiple segments of cylindrical tissue aggregating to 2.5 x 0.8 x 0.2 cm, yellow-brown and of a soft consistency. The specimen is removed from the patient at 10:30 on 11/19/2018. The specimen was placed in formalin at 10:30 on 11/19/2018. Totally submitted in formalin in one cassette. Gross examination performed at [place] [id number] 11/19/2018 9:07:18 PM Date of Report: 11/20/2018 Date of Procedure: 11/19/2018 Date of Receipt: 11/19/2018 Submitted by: Diana Musa M.D. Location: [facility] Diagnostic interpretation performed at [place] [address]. CLIA Number: [id number] [facility] Vital Signs Date Time Vital Sign Value Performing Clinician Facility 12-01-2024 09:53-0400 Body height 162.56 cm David Bolanos MD Work Phone: [facility] 12-01-2024 09:53-0400 Body mass index (BMI) [Ratio] 29.4 kg/m2 David Bolanos MD Work Phone: [facility] 12-01-2024 09:53-0400 Body weight 77.73 kg David Bolanos MD Work Phone: [facility] 12-01-2024 09:53-0400 Diastolic blood pressure 80 mm[Hg] David Bolanos MD Work Phone: [facility] 12-01-2024 09:53-0400 Heart rate 83 /min David Bolanos MD Work Phone: [facility] 12-01-2024 09:53-0400 Respiratory rate 12 /min David Bolanos MD Work Phone: [facility] 12-01-2024 09:53-0400 SaO2% (BldA) [Mass fraction] 97 % David Bolanos MD Work Phone: [facility] 12-01-2024 09:53-0400 Systolic blood pressure 121 mm[Hg] David Bolanos MD Work Phone: [facility] 09-28-2024 13:01-0400 Body height 162.56 cm David Bolanos MD Work Phone: [facility] 09-28-2024 13:01-0400 Body mass index (BMI) [Ratio] 29.3 kg/m2 David Bolanos MD Work Phone: [facility] 09-28-2024 13:01-0400 Body weight 77.56 kg David Bolanos MD Work Phone: [facility] 09-28-2024 13:01-0400 Diastolic blood pressure 88 mm[Hg] David Bolanos MD Work Phone: [facility] 09-28-2024 13:01-0400 Heart rate 85 /min David Bolanos MD Work Phone: [facility] 09-28-2024 13:01-0400 Respiratory rate 16 /min David Bolanos MD Work Phone: [facility] 09-28-2024 13:01-0400 SaO2% (BldA) [Mass fraction] 96 % David Bolanos MD Work Phone: [facility] 09-28-2024 13:01-0400 Systolic blood pressure 142 mm[Hg] David Bolanos MD Work Phone: [facility] 09-20-2024 10:43-0400 Body height 162.56 cm David Bolanos MD Work Phone: [facility] 09-20-2024 10:43-0400 Body mass index (BMI) [Ratio] 29.2 kg/m2 David Bolanos MD Work Phone: [facility] 09-20-2024 10:43-0400 Body temperature 98.3 [degF] Davdi Bolanos MD Work Phone: [facility] 09-20-2024 10:43-0400 Body weight 77.28 kg David Bolanos MD Work Phone: [facility] 09-20-2024 10:43-0400 Diastolic blood pressure 77 mm[Hg] David Bolanos MD Work Phone: [facility] 09-20-2024 10:43-0400 Heart rate 82 /min David Bolanos MD Work Phone: [facility] 09-20-2024 10:43-0400 Systolic blood pressure 121 mm[Hg] David Bloanos MD Work Phone: [facility] 06-29-2024 10:28-0400 Body mass index (BMI) [Ratio] 29.8 kg/m2 Gregg Blum MD Work Phone: [facility] 06-29-2024 10:28-0400 Body temperature 97.59 [degF] Gregg Blum MD Work Phone: [facility] 06-29-2024 10:28-0400 Body weight 78.4 kg Gregg Blum MD Work Phone: [facility] 06-29-2024 10:28-0400 Diastolic blood pressure 80 mm[Hg] Gregg Blum MD Work Phone: [facility] 06-29-2024 10:28-0400 Heart rate 84 /min Gregg Blum MD Work Phone: [facility] 06-29-2024 10:28-0400 Respiratory rate 18 /min Gregg Blum MD Work Phone: [facility] 06-29-2024 10:28-0400 SaO2% (BldA) [Mass fraction] 97 % Gregg Blum MD Work Phone: [facility] 06-29-2024 10:28-0400 Systolic blood pressure 134 mm[Hg] Gregg Blum MD Work Phone: [facility] 05-12-2024 08:27-0500 Body mass index (BMI) [Ratio] 30.04 kg/m2 Anahi Rg PILLOW AGENT Work Phone: [facility] 05-12-2024 08:27-0500 Body weight 79.38 kg Anahi Rg [employer]ILLOW AGENT Work Phone: [facility] 05-12-2024 08:27-0500 Diastolic blood pressure 78 mm[Hg] Anahi Rg PILLOW AGENT Work Phone: [facility] 05-12-2024 08:27-0500 Heart rate 67 /min Anahi Rg [employer] AGENT Work Phone: [facility] 05-12-2024 08:27-0500 SaO2% (BldA) [Mass fraction] 97 % Anahi Rg [employer] AGENT Work Phone: [facility] 05-12-2024 08:27-0500 Systolic blood pressure 124 mm[Hg] Anahi Rg PILLOW AGENT Work Phone: [facility] 12-22-2023 08:42-0400 Body height 162.6 cm Anahi Rg [employer]ENT Work Phone: [facility] 12-22-2023 08:42-0400 Body mass index (BMI) [Ratio] 30.24 kg/m2 Anahi Rg PILLOW [employer]ENT Work Phone: [facility] 12-22-2023 08:42-0400 Body weight 79.92 kg Anahi Rg PILLOW AGENT Work Phone: [facility] 12-22-2023 08:42-0400 Diastolic blood pressure 78 mm[Hg] Anahi Rg PILLOW AGENT Work Phone: [facility] 12-22-2023 08:42-0400 Heart rate 81 /min Anahi Rg PILLOW AGENT Work Phone: [facility] 12-22-2023 08:42-0400 SaO2% (BldA) [Mass fraction] 96 % Anahi Rg PILLOW AGENT Work Phone: [facility] 12-22-2023 08:42-0400 Systolic blood pressure 145 mm[Hg] Anahi Rg PILLOW AGENT Work Phone: [facility] 07-01-2023 14:01-0400 Body height 162.2 cm Gregg Blum MD Work Phone: [facility] 07-01-2023 14:01-0400 Body temperature 97.2 [degF] Gregg Blum MD Work Phone: [facility] 07-01-2023 14:01-0400 Body weight 78.4 kg Gregg Blum MD Work Phone: [facility] 07-01-2023 14:01-0400 Diastolic blood pressure 78 mm[Hg] Gregg Blum MD Work Phone: [facility] 07-01-2023 14:01-0400 Heart rate 90 /min Gregg Blum MD Work Phone: [facility] 07-01-2023 14:01-0400 Respiratory rate 16 /min Gregg Blum MD Work Phone: [facility] 07-01-2023 14:01-0400 SaO2% (BldA) [Mass fraction] 96 % Gregg Blum MD Work Phone: [facility] 07-01-2023 14:01-0400 Systolic blood pressure 130 mm[Hg] Gregg Blum MD Work Phone: [facility] 02-20-2023 11:45-0500 Body height 162.56 cm David Bolanos Other [employer] Other 02-20-2023 11:45-0500 Body mass index (BMI) [Ratio] 30.55 kg/m2 David Bolanos Other [employer] Other 02-20-2023 11:45-0500 Body weight 80.74 kg David Bolanos Other [employer] Other 02-20-2023 11:45-0500 Diastolic blood pressure 87 mm[Hg] David Bolanos Other [employer] Other 02-20-2023 11:45-0500 Systolic blood pressure 132 mm[Hg] David Bolanos Other [employer] Other 02-04-2023 13:45-0400 Body height 162.56 cm David Bolanos Other [employer] Other 02-04-2023 13:45-0400 Diastolic blood pressure 92 mm[Hg] David Bolanos Other [employer] Other 02-04-2023 13:45-0400 Systolic blood pressure 135 mm[Hg] David Bolanos Other [employer] Other 01-21-2023 14:30-0400 Body height 162.56 cm David Bolanos Other [employer] Other 01-21-2023 14:30-0400 Body mass index (BMI) [Ratio] 30.62 kg/m2 David Bolanos Other [employer] Other 01-21-2023 14:30-0400 Body weight 80.92 kg David Bolanos Other [employer] Other 01-21-2023 14:30-0400 Diastolic blood pressure 83 mm[Hg] David Bolanos Other [employer] Other 01-21-2023 14:30-0400 Systolic blood pressure 143 mm[Hg] David Bolanos Other [employer] Other 11-19-2022 11:30-0400 Body height 162.56 cm David Bolanos Other [employer] Other 11-19-2022 11:30-0400 Body mass index (BMI) [Ratio] 30.89 kg/m2 David Bolanos Other [employer] Other 11-19-2022 11:30-0400 Body weight 81.65 kg David Bolanos Other [employer] Other 11-19-2022 11:30-0400 Diastolic blood pressure 89 mm[Hg] David Bolanos Other [employer] Other 11-19-2022 11:30-0400 Systolic blood pressure 134 mm[Hg] David Bolanos Other [employer] Other 06-26-2022 10:30-0400 Body height 162.56 cm David Bolanos Other [employer] Other 06-26-2022 10:30-0400 Body mass index (BMI) [Ratio] 30.55 kg/m2 David Bolanos Other [employer] Other 06-26-2022 10:30-0400 Body weight 80.74 kg David Bolanos Other [employer] Other 06-26-2022 10:30-0400 Diastolic blood pressure 84 mm[Hg] David Bolanos Other [employer] Other 06-26-2022 10:30-0400 SaO2% (BldA) [Mass fraction] 97 % Davidcristhian Bolanos Other [employer] Other 06-26-2022 10:30-0400 Systolic blood pressure 126 mm[Hg] David Bolanos Other [employer] Other 2022 10:35-0500 Body height 162.2 cm Gregg Blum MD Work Phone: [facility] 2022 10:35-0500 Body temperature 97.81 [degF] Gregg Blum MD Work Phone: [facility] 2022 10:35-0500 Body weight 80.74 kg Gregg Blum MD Work Phone: [facility] 2022 10:35-0500 Diastolic blood pressure 74 mm[Hg] Gregg Blum MD Work Phone: [facility] 2022 10:35-0500 Heart rate 74 /min Gregg Blum MD Work Phone: [facility] 2022 10:35-0500 Respiratory rate 16 /min Gregg Blum MD Work Phone: [facility] 2022 10:35-0500 SaO2% (BldA) [Mass fraction] 97 % Gregg Blum MD Work Phone: [facility] 2022 10:35-0500 Systolic blood pressure 134 mm[Hg] Gregg Blum MD Work Phone: [facility] 06-06-2022 11:15-0500 Body height 162.56 cm David Bolanos Other [employer] Other 06-06-2022 11:15-0500 Body mass index (BMI) [Ratio] 30.72 kg/m2 David Bolanos Other [employer] Other 06-06-2022 11:15-0500 Body weight 81.19 kg David Bolanos Other [employer] Other 06-06-2022 11:15-0500 Diastolic blood pressure 88 mm[Hg] David Bolanos Other [employer] Other 06-06-2022 11:15-0500 SaO2% (BldA) [Mass fraction] 97 % David Bolanos Other [employer] Other 06-06-2022 11:15-0500 Systolic blood pressure 138 mm[Hg] David Bolanos Other [employer] Other 03-20-2021 15:45-0500 Body height 162.56 cm Eledr Vigil Other [employer] Other 03-20-2021 15:45-0500 Body mass index (BMI) [Ratio] 31.24 kg/m2 Elder Vigil Other [employer] Other 03-20-2021 15:45-0500 Body weight 82.56 kg Elder Vigil Other [employer] Other 01-10-2021 15:00-0400 Body height 162.56 cm Keith Gaspar Other [employer] Other 01-10-2021 15:00-0400 Body mass index (BMI) [Ratio] 30.89 kg/m2 Keith Gaspar Other [employer] Other 01-10-2021 15:00-0400 Body weight 81.65 kg Keith Gaspar Other [employer] Other Encounters Encounter Date Encounter Type Care Provider Facility Start: 05-13-2025 ambulatory Sandeep Mora ty:[facility] Start: 12-21-2024 End: 12-21-2024 ambulatory David Bolanos MD Work Phone: [facility] Work Phone: Start: 12-21-2024 End: 12-21-2024 Patient encounter procedure Gaetano Dempsey DO -[facility] Work Phone: Start: 12-03-2024 Non-patient / Non-visit David chirinos MD -[facility] Work Phone: Start: 12-01-2024 End: 12-01-2024 ambulatory David Bolanos MD Work Phone: [facility] Work Phone: Start: 12-01-2024 End: 12-01-2024 Patient encounter procedure David Bolanos MD -[facility] Work Phone: Start: 09-28-2024 End: 09-28-2024 Patient encounter procedure Anahi Rg 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 Start: 06-29-2024 End: 06-29-2024 ambulatory GREGG BLUM Facility:[facility] Start: 06-29-2024 End: 06-29-2024 Office outpatient visit 15 minutes Gregg Blum MD Work Phone: Hematology/Oncology Comment on above: Malignant neoplasm o f upper-outer quadrant of left breast in female, estrogen receptor negative (HCC) (Primary Dx) Start: 05-20-2024 End: 05-20-2024 Patient encounter procedure David Bolanos MD Work Phone: [facility] Work Phone: Start: 05-17-2024 Non-patient / Non-visit David Bolanos MD Work Phone: [facility] Work Phone: Start: 05-17-2024 Non-patient / Non-visit David Bolanos MD Work Phone: [facility] [employer] Work Phone: Start: 05-12-2024 End: 05-12-2024 Bamboo flowsheet Anahi Rg PILLOW AGENT Work Phone: [facility] Start: 05-12-2024 End: 05-12-2024 Bamboo flowsheet Anahi Rg PILLOW AGENT Work Phone: [facility] Start: 05-12-2024 End: 05-12-2024 Office outpatient visit 25 minutes Anahi Arcenio [employer]ENT Work Phone: [facility] Comment on above: MCI (mild cognitive impairment) (Primary Dx); JEFFREY (obstructive sleep apnea); Family history of Alzheimer's disease Start: 05-12-2024 End: 05-12-2024 ambulatory ANAHI ARCENIO Not Available Start: 05-10-2024 End: 05-10-2024 ambulatory Sandeep HILL Facility:[facility] Start: 04-26-2024 End: 04-26-2024 Bamboo flowsheet Jelena Austin MD Work Phone: [facility] Start: 04-26-2024 End: 04-26-2024 Bamboo flowsheet Jelena Austin MD Work Phone: [facility] Start: 04-26-2024 End: 04-26-2024 ambulatory JELENA AUSTIN Not Available Start: 04-26-2024 End: 04-26-2024 Office outpatient visit 15 minutes Jelena Austin MD Work Phone: [facility] Comment on above: Seborrheic keratosis (Primary Dx); Lentigines; Seborrheic keratosis, inflamed Start: 12-22-2023 End: 12-22-2023 Office outpatient visit 15 minutes Anahi Rg PILLOW AGENT Work Phone: [facility] [address] [facility] Comment on above: MCI (mild cognitive impairment) (Primary Dx); JEFFREY (obstructive sleep apnea); Family history of Alzheimer's disease Start: 12-22-2023 End: 12-22-2023 ambulatory ANAHI RG Not Available Start: 12-02-2023 End: 12-02-2023 ambulatory Za Espinoza Facility: [facility] Start: 12-01-2023 Patient encounter procedure David Bolanos MD Work Phone: [facility] Start: 11-03-2023 End: 11-03-2023 ambulatory ANAHI RG Not Available Start: 10-28-2023 End: 10-28-2023 ambulatory YINKA HARP Not Available Start: 10-21-2023 End: 10-21-2023 ambulatory Sandeep HILL Facility:[facility] Start: 10-14-2023 End: 10-14-2023 ambulatory Sandeepflynn HILL Facility:[facility] Start: 09-23-2023 End: 09-23-2023 ambulatory Za X Orzech Facility:[facility] Start: 09-01-2023 End: 09-01-2023 ambulatory YINKA HARP Not Available Start: 08-26-2023 End: 08-26-2023 ambulatory Za X Orzech Facility:[facility] Start: 07-02-2023 ambulatory Unique FabianSundaralbertina jay [facility] Work Phone: [facility] Start: 07-01-2023 End: 07-01-2023 ambulatory Gregg Blum MD Work Phone: Hematology/Oncology Comment on above: Malignant neoplasm o f upper-outer quadrant of left breast in female, estrogen receptor negative (HCC) (Primary Dx) Start: 07-01-2023 End: 07-01-2023 Patient encounter procedure Gregg Blum MD Work Phone: [employer] Start: 02-25-2023 End: 02-25-2023 ambulatory David Bolanos Other [employer] Other Start: 02-25-2023 Telephone encounter David Bolanos [facility] Start: 02-20-2023 End: 02-20-2023 ambulatory David Bolanos Other [employer] Other Start: 02-20-2023 Office outpatient vi sit 25 minutes David Bolanos [facility] Start: 02-04-2023 (Televisit) Televisit David Persaud [facility] Start: 02-04-2023 End: 02-04-2023 ambulatory David Bolanos Other [employer] Other Start: 02-04-2023 Telephone encounter David Luis Miguel [facility] Start: 01-21-2023 End: 01-21-2023 ambulatory David Bolanos Other [employer] Other Start: 01-21-2023 Office outpatient vi sit 15 minutes David Luis Miguel [facility] Start: 11-27-2022 End: 11-27-2022 ambulatory David Bolanos Other [employer] Other Start: 11-27-2022 Telephone encounter David Luis Miguel [facility] Start: 11-19-2022 End: 11-19-2022 ambulatory David Bolanos Other [employer] Other Start: 11-19-2022 Patient encounter procedure David Bolanos [facility] Start: 08-05-2022 End: 08-05-2022 ambulatory David Bolanos Other [employer] Other Start: 08-05-2022 Telephone encounter David Bolanos [facility] Start: 07-31-[address] DAVID BOLANOS Facil ity:[facility] Start: 07-02-2022 End: 07-02-2022 ambulatory David Bolanos Other [employer] Other Start: 07-02-2022 Telephone encounter David Bolanos [facility] Start: 06-26-2022 End: 06-27-[address] DAVID BOLANOS [employer] Other Start: 06-26-2022 Office outpatient vi sit 15 minutes David Bolanos [facility] Start: 2022 End: 2022 ambulatory Gregg Blum MD Work Phone: Hematology/Oncology Comment on above: Malignant neoplasm o f upper-outer quadrant of left breast in female, estrogen receptor negative (HCC) (Primary Dx) Start: 2022 End: 2022 Patient encounter procedure Gregg Blum MD Work Phone: [place] Start: 06-06-2022 End: 06-06-2022 ambulatory David Bolanos Other [facility] [employer] Other Start: 06-06-2022 Office outpatient vi sit 15 minutes David Bolanos [facility] Start: 05-16-2022 End: 05-17-[address] EM SERNA . Facility:[facility] Start: 05-01-2022 End: 05-01-2022 ambulatory MD David Bolanos Work Phone: [facility] Work Phone: Start: 05-01-2022 End: 05-01-2022 Patient encounter procedure MD David Bolanos Work Phone: [facility] Work Phone: Start: 04-25-2022 Encounter for preprocedural laboratory examination DR EM SERNA . [facility] Start: 04-18-2022 End: 05-03-[address] EM [...] 12-19-2021 Adult health examination Radha Bolanos Other [employer] Other Start: 12-19-2021 Gynecological examination normal David Bolanos Other [employer] Other Start: 12-19-2021 Pre-procedure evalua tion check David Bolanos Other [employer] Other Start: 11-15-2021 Encounter for genera l adult medical examination without abnormal findings DR DAVID BOLANOS [facility] Start: 11-12-2021 End: 11-13-[address] DAVID BOLANOS Facility:[facility] Start: 11-12-2021 End: 11-13-2021 Encounter for general adult medical examination without abnormal findings DR DAVID BOLANOS Facility:[facility] Start: 10-09-2021 End: 10-10-[address] VANESSA TORRES . Facility:[facility] Start: 09-03-2021 End: 09-03-[address] DAVID BOLANOS Facility:[facility] Start: 05-10-2021 End: 05-10-2021 ambulatory Elder Vigil Other [employer] Other Start: 05-10-2021 Office outpatient vi sit 15 minutes Elder Vigil [facility] [place] Start: 03-22-2021 End: 03-22-2021 ambulatory Elder Vigil Other [employer] Other Start: 03-22-2021 Telephone encounter Elder Hernandeser [facility] [place] Start: 03-21-2021 End: 03-21-2021 ambulatory Elder Vigil Other [employer] Other Start: 03-21-2021 Telephone encounter Elder Hernandeser [facility] [place] Start: 03-20-2021 End: 03-20-2021 ambulatory Elder Hernandeser Other [employer] Other Start: 03-20-2021 Office outpatient vi sit 15 minutes Elder Vigil [facility] [place] Start: 02-27-2021 (Procedure) Short Elder Vigil [facility] Start: 02-27-2021 End: 02-27-2021 ambulatory Elder Vigil Other [employer] Other Start: 01-17-2021 Office outpatient vi sit 25 minutes Elder Cecilioemily [facility] [place] Start: 01-10-2021 Office outpatient vi sit 15 minutes Keith Gaspar [facility] Procedures Date Procedure Procedure Detail Performing Clinician Start: 04-26-2024 CRYOTHERAPY SKIN LESION Jelena Austin MD Work Phone: Start: 05-01-2022 Plain chest X-ray MD Kelle Bolanos Work Phone: Start: 07-20-2019 Screening for malign ant neoplasm of breast David Bolanos Other Start: 11-19-2018 Mammography Anahi loza [employer] Work Phone: End: 08-11-2019 Depression screening David Bolanos Other Screening for malign ant neoplasm of breast David Bolanos Other Plan of Treatment Date Care Activity Detail Author Start: 2028 RSV Vaccine (1 - 1-d ose 75+ series) RSV Vaccine (1 - 1-dose 75+ series) [facility] Start: 04-26-2025 End: 04-26-2025 Patient encounter procedure 04/26/2025 10:50 AM EST Office Visit [facility] [address] [place] [address] Jelena Austin MD [address] [place] [address] [facility] Start: 09-28-2024 End: 09-28-2024 Patient encounter procedure 09/28/2024 1:00 PM EDT Office Visit [facility] [address] [place] [address] Anahi Rg, PILLOW AGENT [address] [place] [address] [facility] Start: 09-20-2024 Patient referral [facility] Work Phone: Start: 07-20-2024 Covid-19 Vaccine () Covid-19 Vaccine () [facility] Start: 06-14-2024 End: 06-14-2024 Patient encounter procedure [facility] [address] Start: 05-12-2024 End: 05-12-2024 Patient encounter procedure 05/12/2024 8:40 AM EST Office Visit [facility] [address] [place] [id number] Anahi Rg NP [address] [place] [address] Arrived [facility] Comment on above: Arrived Start: 04-26-2024 End: 04-26-2024 Patient encounter procedure 04/26/2024 10:05 AM EST Office Visit [facility] [address] [place] [address] Jelena Austin MD [address] [place] [address] [facility] Start: 04-14-2024 Advance Directive Discussion Advance Directive Discussion [facility] Start: 12-14-2023 Influenza vaccination Influenza Vacc ine (#1) [facility] Start: 04-14-2023 Advance Directive Discussion Advance Directive Discussion [facility] Start: 04-14-2023 [facility] Start: 12-13-2022 Influenza vaccination Influenza Vacc ine (#1) [facility] Start: 04-14-2022 ADVANCE DIRECTIVE DISCUSSION ADVANCE DIRECTIVE DISCUSSION [facility] Start: 04-14-2022 DEPRESSION ASSESSMENT DEPRESSION ASS ESSMENT [facility] Start: 02-18-2022 DIABETES SCREEN DIABETES SCREEN [facility] Start: 02-18-2022 Diabetes Screening Diabetes Screenin g [facility] Start: 11-09-2021 Pneumococcal Vaccine : 50+ (2 of 2 - PCV) Pneumococcal Vaccine: 50+ (2 of 2 - PCV) [facility] Start: 11-09-2021 Pneumococcal Vaccine : 65+ (2 of 2 - PCV) Pneumococcal Vaccine: 65+ (2 of 2 - PCV) [facility] Start: 11-09-2021 Pneumococcal Vaccine : 65+ Years (2 of 2 - PCV) Pneumococcal Vaccine: 65+ Years (2 of 2 - PCV) [facility] Start: 11-09-2021 PNEUMOCOCCAL: 65+ (2 - PCV) PNEUMOCOCCAL: 65+ (2 - PCV) [facility] Start: 11-20-2019 Screening for malign ant neoplasm of breast Mammogram [facility] Start: 10-29-2019 Screening for malign ant neoplasm of breast Mammogram Screening [facility] Start: 2018 BONE DENSITY BONE DENSITY [facility] Start: 2018 Screening for osteoporosis Bone Density Screening [facility] Start: 2013 RSV Vaccine (1 - 1-d ose 60+ series) RSV Vaccine (1 - 1-dose 60+ series) [facility] Start: 1998 COLOGUARD (FIT-DNA) COLOGUARD (FIT-D NA) [facility] Start: 1998 Colonoscopy COLONOSCOPY [facility] Start: 1998 COLORECTAL CANCER SCREENING COLORECTAL CANCER SCREENING [facility] Start: [address] COLONOGRAPHY [facility] Start: 1998 FECAL OCCULT BLOOD FECAL OCCULT BLOO D [facility] Start: 1998 Lipid panel Lipid Screening [facility] Start: 1998 LIPID SCREEN LIPID SCREEN [facility] Start: 1998 Screening for malign ant neoplasm of colon [facility] Start: 1998 SIGMOIDOSCOPY SIGMOIDOSCOPY [facility] Start: 1993 Mammography MAMMOGRAM [facility] Start: 1972 Urine microalbumin profile [facility] Start: 06-14-1971 Anxiety Screening Anxiety Screening [facility] Start: 06-14-1971 Depression Screening Depression Scre ening [facility] Start: 06-14-1971 HEPATITIS C SCREENING HEPATITIS C [facility] Start: 06-14-1971 Hepatitis C screening Hepatitis C [facility] Start: 1953 Screening for malign ant neoplasm of colon [facility] panel - Serum or Plasma [facility] Patient referral [facility] Work Phone: XR Foot - right GE 3 Views [facility] Immunizations Immunization Date Immunization Notes Care Provider Fa cility 12-21-2024 influenza, high dose seasonal, preservative-free David Bolanos MD Work Phone: [facility] 01-29-2024 influenza, high dose seasonal, preservative-free David Bolanos MD Work Phone: [facility] 01-21-2023 influenza, high dose seasonal, preservative-free David Bolanos Other [employer] Other 01-21-2023 influenza virus vaccine, unspecified formulation Anahi Rg NP Work Phone: [facility] 07-30-2022 tetanus and diphther ia toxoids, adsorbed, preservative free, for adult use (5 Lf of tetanus toxoid and 2 Lf of diphtheria toxoid) David Bolanos Other [employer] Other 07-30-2022 tetanus and diphther ia toxoids, adsorbed, preservative free, for adult use (2 Lf of tetanus toxoid and 2 Lf of diphtheria toxoid) David Bolanos MD Work Phone: [facility] 01-23-2022 COVID-19 Pfizer (Pediatric) David Bolanos Other [facility] 01-03-2022 influenza (aIIV4) vaccine, age 65+ yr, quadrivalent, PF (FLUAD QUAD) Gregg Blum MD Work Phone: [facility] 01-03-2022 influenza virus vaccine, split virus (incl. purified surface antigen) David Bolanos Other [employer] Other 09-22-2022 influenza virus vaccine, unspecified formulation Gregg Blum MD Work Phone: [facility] 01-22-2021 COVID-19 Vaccine Pfi zer - Documentation Purposes Only David Bolanos Other [facility] 01-10-2021 influenza virus vaccine, split virus (incl. purified surface antigen) David Bolanos Other [facility] [employer] Other 01-10-2021 influenza virus vaccine, unspecified formulation David Bolanos MD Work Phone: [facility] 11-09-2020 pneumococcal polysaccharide vaccine, 23 valent Gregg Blum MD Work Phone: [facility] 07-19-2020 Kenalog -40 mg Keith Chasity Other [facility] [employer] Other 06-16-2020 COVID-19 Vaccine Pfi zer - Documentation Purposes Only David Bolanos Other [facility] 05-26-2020 COVID-19 Vaccine Pfi zer - Documentation Purposes Only David Bolanos Other [facility] 03-07-2020 zoster vaccine recombinant Gregg Blum MD Work Phone: [facility] 12-21-2019 influenza virus vaccine, split virus (incl. purified surface antigen) David Bolanos Other [facility] [employer] Other 12-21-2019 influenza virus vaccine, unspecified formulation David Bolanos MD Work Phone: [facility] 11-09-2019 pneumococcal conjuga te vaccine, 13 valent David Bolanos Other [facility] 11-09-2019 zoster vaccine recombinant Gregg Blum MD Work Phone: [facility] 02-14-2009 novel biiondhge-[id number], preservative-free, injectable Gregg Blum MD Work Phone: [facility] Payers Date Payer Category Payer Self-pay [id number] 2024 Unknown [id number] 2018 Medicare [id number] 2018 Private Health Insurance [id number] 2018 Unknown [id number] [id number] 1959 Medicare [id number] 2.1 [id number] 1959 Unknown [id number] 1953 Unknown [id number] 2.16.84 0.1.789248.3.579.2.593 1953 Unknown [id number] 2.16.84 0.1.319464.3.579.2.593 1953 Unknown [id number] 2.16.84 0.1.611674.3.579.2.593 1953 Unknown [id number] 2.16.84 0.1.334346.3.579.2.593 1953 Unknown [id number] 2.16.84 0.1.804599.3.579.2.593 1953 Unknown [id number] 2.16.84 0.1.967208.3.579.2.593 1953 Unknown [id number] 2.16.84 0.1.192284.3.579.2.593 1953 Unknown [id number] 2.16.84 0.1.732566.3.579.2.593 1953 Unknown [id number] 2.16.84 0.1.446781.3.579.2.593 1953 Unknown [id number] 2.16.84 0.1.476338.3.579.2.593 1953 Unknown [id number] 2.16.84 0.1.425457.3.579.2.593 1953 Unknown [id number] 2.16.84 0.1.529726.3.579.2.593 1953 Unknown [id number] 2.16.84 0.1.925859.3.579.2.593 1953 Unknown [id number] 2.16.84 0.1.038654.3.579.2.593 1953 Unknown [id number] 2.16.84 0.1.494766.3.579.2.593 1953 Unknown [id number] 2.16.84 0.1.284625.3.579.2.593 1953 Unknown [id number] 2.16.8 40.1.661029.3.579.2.727 1953 Unknown [id number] 2.16.8 40.1.695541.3.579.2.727 1953 Unknown [id number] 2.16.8 40.1.453811.3.579.2.727 1953 Unknown [id number] 2.16.8 40.1.853119.3.579.2.727 1953 Unknown [id number] 2.16.8 40.1.626545.3.579.2.727 1953 Unknown [id number] 2.16.8 40.1.988260.3.579.2.727 1953 Unknown [id number] 2.16.8 40.1.262731.3.579.2.727 1953 Unknown [id number] 2.16.84 0.1.957257.3.579.2.1259 1953 Unknown [id number] 2.16.84 0.1.998856.3.579.2.1259 1953 Unknown [id number] 2.16.84 0.1.403376.3.579.2.9 1953 Unknown [id number] 2.16.84 0.1.235407.3.579.2.9 1953 Unknown [id number] 2.16.84 0.1.790834.3.579.2.1259 1953 Unknown [id number] 2.16.84 0.1.849910.3.579.2.1259 Unknown [id number] 2.16.8 40.1.575350.3.579.2.531 Social History Date Type Detail Facility Start: 07-01-2023 End: 06-29-2024 Sex Assigned At [facility] Start: 1955 Sex Assigned At Female [facility] Start: 03-19-2012 End: 09-20-2024 Tobacco smoking status NHIS Never smoked tobacco [facility] Start: 03-19-2012 End: 04-24-2023 Tobacco use and exposure Smokeless tobacco non-user [facility] Start: 06-14-2021 End: 06-29-2024 Alcohol intake Ex-drinker (finding) [facility] Start: 1955 Sex Assigned At Not on file [facility] Start: 07-01-2023 End: 06-29-2024 History of Social function [facility] Adult Depression Screening Assessment 0 [facility] Start: 12-22-2023 End: 05-12-2024 Alcoholic beverage intake Lifetime non-drinker (finding) [facility] Start: 05-09-2023 Gender identity Identifies as female gender (finding) [facility] Start: 05-09-2023 Sexual orientation Heterosexual (finding) [facility] Tobacco smoking stat us NHIS Unknown if ever smoked [facility] Work Phone: Start: 08-09-2024 End: 09-20-2024 Sex Female (finding) [facility] Functional Status Date Assessment Result Facility 09-21-2014 Are you deaf, or do you have serious difficulty hearing No 09/21/2014 11:12 AM EDJoseph VictorYady hall [facility] 09-21-2014 Are you blind, or do you have serious difficulty seeing, even when wearing glasses No 09/21/2014 11:12 AM EDJoseph VictorYady hall [facility] 09-21-2014 Do you have serious difficulty walking or climbing stairs No 09/21/2014 11:12 AM CHRISTOPHER VictorColin halllie [facility] 09-21-2014 Do you have difficul ty dressing or bathing No 09/21/2014 11:12 AM EDJoseph VictorColin halllie [facility] 09-21-2014 Because of a physica l, mental, or emotional condition, do you have difficulty doing errands alone such as visiting a physician's office or shopping No 09/21/2014 11:12 AM Joseph VictorColin halllie [facility] Mental Status Date Assessment Result Facility 09-21-2014 Because of a physica l, mental, or emotional condition, do you have serious difficulty concentrating, remembering, or making decisions No 09/21/2014 11:12 AM Joseph VictorYady hall [facility] Clinical Notes 01-10-2021 to 09-28-2024 Note Date & Type Note Facility 09-28-2024 Evaluation note Diagnosis Onset Date Resolution Family history of Alzheimer disease chronic September 28 12:58pm Mild cognitive impairment chronic September 28, 2024 12:58pm Obstructive sleep apnea of adult chronic September 28, 2024 12:58pm Alzheimer's disease, unspecified acute December 01 9:51am Hyperlipemia acute December 01, 2024 9:51am Hypertension acute December 01, 2024 9:51am Medicare annual wellness visit, subsequent acute December 01 9:51am [facility] Work Phone: [phone] 400-462906-09-2025 Evaluation note* Diagnosis Onset Date Resolution Status Admit Date Foot ulcer due to secondary DM inact nevin September 20, 2024 10:42am Family history of Alzheimer disease chronic September 28, 2024 12:58pm Mild cognitive impairment chronic September 28, 2024 12:58pm Obstructive sleep apnea of adult chronic September 28, 2024 12:58pm Alzheimer's disease, unspecified acute December 01 9:51am Hyperlipemia acute December 01, 2024 9:51am Hypertension acute December 01, 2024 9:51am Medicare annual wellness visit, subsequent acute December 01, 025 9:51am [facility] Work Phone: 1(841) 950-549703-17-2025 NoteHNO ID: [id number] Author: GREGG BLUM MD Service: ? Author [...] 1,500 mg by mouth once daily. Fish Oil-[place]-3 Fatty Acids (FISH OIL) 340-1,000 mg cap [...] gallop, or r (more content not included)... [facility]03-17-2025 History of Present illness Narrative* Gregg [...] 1,500 mg by mouth once daily. Fish Oil-[place]-3 Fatty Acids (FISH OIL) 340-1,000 mg cap [...] receptor negative Stage IA (T1mic, N0, M0) ER/TN negative, HER-2 negative left-sided breast cancer diagnosed [...] CC: David Bolanos MD [facility] Evaluation note* Diagnosis Onset Date Resolution Status Admit Date COVID-19 acute May 20, 2024 1:23pm Sinusitis, acute maxillary acute May 20, 2024 1:23pm [facility] Work Phone: [phone] 990-355301-29-2025 History of Present illness Narrative* Anahi Rg NP - 05/12/2024 8:40 AM EST Images from the original note were not included. Chief Complaint Patient presents with Memory Loss Subjective Parth Powers is a 68 y.o. female. History [...] today but was told by the front end developer designer that her next follow-up appointment was supposed [...] Substance Use Topics Alcohol use: Never Allergies: Smsf-lmpcuf-ofsc [alitraq], Hydrocodone-acetaminophen, Hydromorphone, Wound dressing adhesive, and [...] wrist extensors , wrist flexor , and echocardiograph technician strength 5/5. LUE strength deltoid , biceps , triceps , wrist extensors , wrist flexor , and echocardiograph technician strength 5/5. RLE strength iliopsoas, quadriceps, tibialis [...] reflex 1+. LLE knee reflex 1+. Coordination: Weqzse-ss-lfwl testing normal. Rapid alternating movements are normal. [...] events at this pressure. MOCA score at [facility] on 11/03/23: . Neuropsychological evaluation at [facility] on 04/24/23: Demonstrated some distractibility that interfered with optimal performance at times. That being said, she has some difficulty with retaining information, auditory attention/working memory, semantic fluency, visual complex divided attention, problem-solving/cognitive flexibility. 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 Minimal psychiatric inpatient contribution presently. Labs on 02/28/23: TSH 0.946. Vitamin B12 level 772. Graeme cognitive assessment (MOCA) score on 02/26/23: . [...] NP [facility] documented in this [facility]01-29-2025 Instructions* Patient Instructions* Anahi Rg NP - 05/12/2024 8:40 AM EST - Referral to speech therapy - Continue donepezil 10 mg by mouth daily - Follow up in 4-6 months documented in this [facility]01-27-2025 NotePatient Education Obstetrics and Gynecology Kegel Exercises [...] provider. Document Revised: 08/09/2021 Document Reviewed: 08/09/2021 [employer] Patient Education ? 2023 [employer].[facility] 04-26-2024 History of Present illness Narrative* Jelena [...] 3. Seborrheic keratosis, inflamed Right Supraorbital Region [place] and brown stuck on verrucous scaly papule [...] limited to risks of scarring, darker or public records officer pigmentary changes, recurrence, incomplete removal and infection. 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 LUE strength deltoid , biceps , triceps , wrist extensors , wrist flexor , and echocardiograph technician strength 5/5. RLE strength iliopsoas, quadriceps, tibialis [...] reflex 1+. LLE Knee reflex 1+. Coordination: Hbfprj-qz-wisn testing normal. Rapid alternating movements are normal. Gait: Normal. Review and summary of old records: MOCA score at [facility] on 11/03/23: . Neuropsychological evaluation at [facility] on 04/24/23: Demonstrated some distractibility that interfered [...] NP [facility] documented in this encounterBarnes-Jewish [facility] [id number] Instructions* Patient Instructions* Anahi Rg NP - 12/22/2023 8:40 AM EDT - [facility] documented in this encounterBarnes-Jewish [facility] County [id number] NotePatient Education Obstetrics and Gynecology Overactive Bladder, [...] health care provider. General instructions ? Take bgrj-pes-ohlavxm and prescription medicines only as told by [...] help your health care (more content not included)...[facility]07-09-2024 NotePatient Education Custom Cystoscopy with Botox injection [...] if you have a fever over 100 degrees.[facility] 09-23-2023 NoteChief Complaint Repeat Botox Evaluation HPI [...] with voice recognition artificial intelligence software, specifically [employer], [employer] and or [employer] System. Substitutions may have occurred due to the [...] voiding maneuvers -Schedule Botox with PRW Ordered: 25907 Measure Post Void residual urine and/or bladder capacity by US- non-imaging 2. Stress incontinence (N39.3: Stress incontinence (female) (male)) With sneezing, coughing, sometimes activity. Not particularly bothersome to patient at this time. Orders: Urnls Dip Stick Auto w/o Microscopy POC 42238 Follow-up With When Contact Information SERGIO DYKES, Sandeep Simmons, [address] [place] [address]- Additional Instructions: Schedule Botox Patient Education Overactive Bladder, Adult Urinary Incontinence Problem List/Past Medical History Ongoing Anticoagulated Aspirin long-term use Eczema Esophageal reflux History of breast cancer Hyperlipidemia Hypertension FDC current use of anticoagulant therapy Mixed incontinence Neuropathy Urge incontinence Urinary urgency Historical No qualifying data Procedure/Surgical History Injection of therapeutic substance into bladder wall (05/28/2022), Injection of therapeutic substance into bladder wall (02/06/2021), Cystoscopy (10/26/2019), Bilateral mastectomy (02/2019), Injection of therapeutic substance into bladder wall (02/17/2018), Injection of therapeutic substance into bladder wall (11/19/2016), [place] node biopsy (03/2012), Lumpectomy (02/2012), External beam [...] Immunizations Vaccine Date Status Comments SARS-CoV-2 (COVID-19) [id number] 01/23/2022 Recorded influenza virus vaccine, inactivated 01/03/2022 Recorded SARS-CoV-2 (COVID-19) mRNA BNT-162b2 vax 01/22/2021 R (more content not included)...[facility] HospitalComment on above:Result Comment: Electronically Signed By: STACIE Espinoza APRN, Za Larson\.br\Date and Time Signed: 09/23/23 13:18 [id number] History of Present illness Narrative* Gregg Blum [...] ORAL) Take by mouth once daily. Fish Oil-[place]-3 Fatty Acids (FISH OIL) 340-1,000 mg cap [...] receptor negative Stage IA (T1mic, N0, M0) ER/TN negative, HER-2 negative left-sided breast cancer diagnosed [...] CC: David Bolanos MD documented [facility] Evaluation note* Encounter Date Diagnosis Assessment Notes Treatment Notes Treatment Clinical Notes Feb, Wound of foot (ICD-10 - S91.309A) Referral to [facility] written. 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 [employer] Other 10-24-2023 Evaluation note* Encounter Date Diagnosis Assessment Notes Treatment Notes Treatment Clinical Notes Jan, COVID-19 (ICD-10 - U07.1) Hold atorvastatin while on paxlovid. Continue rest and supportive care. Denies dyspnea. Discussed further treatment options. Reviewed + test at [facility] lab today [employer] Other 10-10-2023 Evaluation note* Encounter Date Diagnosis [...] is readily compliant w machine and treatment. [employer] Other 08-08-2023 Evaluation note* Encounter Date Diagnosis [...] Requests refill. condition is chronic and stable. [employer] Other 04-24-2023 Evaluation note* Encounter Date Diagnosis Assessment Notes Treatment Notes Treatment Clinical Notes Jul, Strain of left trapezius muscle, initial encounter (ICD-10 - S46.812A) [employer] Other 03-15-2023 Evaluation note* Encounter Date Diagnosis Assessment Notes Treatment Notes Treatment Clinical Notes Jun, Other chronic pain (ICD-10 - G89.29) Jun, Pain in left shoulder (ICD-10 - M25.512) Pt declines PT at this time. Will check xray and followup w Dr. Quinn. Had two massages - no improvement in prominent muscle spasm in L trap area. [employer] Other 03-02-2023 History of Present illness Narrative* [...] receptor negative Stage IA (T1mic, N0, M0) ER/TN negative, HER-2 negative left-sided breast cancer diagnosed [...] CC: David Bolanos MD documented in this encounter[facility]23 Evaluation note* Encounter Date Diagnosis Assessment Notes Treatment Notes Treatment Clinical Notes May, Strain of left trapezius muscle, initial encounter (ICD-10 - S46.812A) Declines cardiac concerns or PT referral as she is traveling soon. Will consider a massage. [employer] Other 02-02-2023 NoteCONSULTATION CONSULTATION DATE: 05/16/2022 HISTORY [...] She will call the office for refills.[id number] NoteCONSULTATION CONSULTATION DATE: 03/05/2022 CHIEF COMPLAINT: Low [...] would like to proceed. CC: David Bolanos M.D.[facility]11-01-2022 NotePAIN MANAGEMENT CONSULTATION CONSULTATION DATE: 02/12/2022 CHIEF [...] answered. The patient would like to proceed.[facility] [id number] Note PAIN MANAGEMENT CONSULTATION CONSULTATION DATE: 01/15/2022 [...] the thoracic spine. CC: David Bolanos M.D.[facility] DaytonUzarbcqi21-67-6595 Evaluation note* Encounter Date Diagnosis Assessment Notes [...] Above note written by Chadd Irizarry MA, Hemotherapist. Edited and approved by Dr. Elder Vigil MD. [employer] Other 12-08-2021 Evaluation note* Encounter Date Diagnosis Assessment Notes Treatment Notes Treatment Clinical Notes Mar, Trochanteric bursitis of right hip (ICD-10 - M70.61) [employer] Other 12-07-2021 Evaluation note* Encounter Date Diagnosis [...] note writ ten by Chadd Irizarry CMA, Hemotherapist. Edited and approved by Dr. Elder Vigil MD. [employer] Other 10-06-2021 Evaluation note* Encounter Date Diagnosis [...] note writ ten by Macy Toth CMA, Hemotherapist. Edited and approved by Dr. Elder Vigil [...] negative findings were considered in medical decision-making. [employer] Other 09-29-2021 Evaluation note* Encounter Date Diagnosis [...] schedule an appt with Dr Joseph Vigil (automotive painter helper) for evaluation and hip joint injection. Dec, Pain of right lower extremity (ICD-10 - M79.604) [place] [employer] Other Evaluation noteNo InformationNort [employer] Other Evaluation noteNo assessment information available [facility] Work Phone: Evaluation note* Diagnosis Malignant neoplasm of upper-outer quadrant of left breast in female, estrogen receptor negative (HCC)- Primary [facility] Malignant neoplasm of upper-outer quadrant of left breast in female, estrogen receptor negative (HCC)- Primary [facility] Diagnosis MCI (mild cognitive impairment)- Primary Mild cognitive impairment, so stated JEFFREY (obstructive sleep apnea) Obstructive sleep apnea (adult) (pediatric) Family history of Alzheimer's disease Family history of other condition documented in this encounter [facility] HealthcareEvaluation note* Diagnosis Seborrheic keratosis- Primary Lentigines Seborrheic keratosis, inflamed documented in this encounter [facility] Healthcare[facility]* Diagnosis MCI (mild cognitive impairment)- Primary Mild cognitive impairment, so stated JEFFREY (obstructive sleep apnea) Obstructive sleep apnea (adult) (pediatric) Family history of Alzheimer's disease Family history of other condition documented in this encounter [facility] HealthcareEvaluation note* Diagnosis Malignant neoplasm of upper-outer quadrant of left breast in female, estrogen receptor negative (HCC)- Primary [facility] Diagnosis Onset Date Resolution Status Admit Date Foot ulcer due to secondary DM acute September 20, 2024 10:42am [facility] Work Phone: History general Narrative - Reported* Type Description Date Medical History hypertension Medical History high cholesterol Medical History neuropathy bilateral feet Medical History osteoarthritis Medical History breast cancer Medical History osteopenia Surgical History breast cancer Surgical History lumpectomy, left breast Surgical History lumpectomy, right breast Surgical History bilateral mastectomy Surgical History toe surgery Hospitalization History see above [employer] Other [facility] general Narrative - [facility]ortedN[facility]de[facility] [employer] Other Hisgwws general Narrative - Reported* Type Description Date [...] lid lift 05/23/2022 Hospitalization History see above [employer] Other Hisoubj general Narrative - Reported* Type Description Date [...] lid lift 05/23/2022 Hospitalization History see above [employer] Other Hospital Discharge instructionsAmbulatory Orders* Referral to Podiatry Time Frame: 09/20/24, Location: None [facility] Work Phone: Reason for referral (narrative)* Consultation (Routine) - Pending Review Specialty Diagnoses / Procedures Referred By Eleazar lópez Referred To Contact Sleep Medicine Diagnoses JEFFREY (obstructive sleep apnea) Procedures [place] OFFICE/OUTPATIENT NEW HIGH [facility] 60 MINUTES Anahi Rg NP [address] [place] [address] [facility] [address] [place] [address] Phone: [phone] Referral ID Status Reason Start Date Expiration Date Visits Requested Visits Authorized [id number] Pending Review Consult and Treat 12/22/2023 06/19/2024 1 1 Scheduling Instructions For evaluation, consideration of updated sleep study, and CPAP adjustment as indicated TRACIE Spangler for referral (narrative)No reason for referral information availableTuscarawas Hospital Work Phone: Summary Purpose Family History [...] Documents on File Type Date Recorded Patient Author'S Agent Expl anation Advance Directive(s) 05/26/2012 10:48 AM [...] visit, subseque nt December 01, 2024 9:51am Chief Complaint Admit Date wellness December 01, 2024 9: 51am Flu Shot December 21, 2024 1:47pm Reason for Visit Admit Date Family history of Alzheimer disease September 28, 2024 12:58pm Mild cognitive impairment September 28 12:58pm Obstructive sleep apnea of adult September 282024 12:58pm Alzheimer's disease, unspecified December 01, 2024 9:51am Hyperlipemia December 01, 2024 9: 51am Hypertension December 01, 2024 9: 51am Medicare annual wellness visit, subseque nt December 01, 2024 9:51am Reason for Referral Reason [facility], mem ory concerns - MRI pending Diagnosis 1 Memory deficit (R41. 3) Referral Organization [facility] So lee Referring Provider First Name David Referring Provider Last Name Luis Miguel Referring Provider Specialty Family [facility] Referred Organization [facility] Referred Provider Quentin Eric Referred Address [address],[place], [place],[address] Referred Provider Specialty Neurology Referral Priority Routine Reason *FU 07/10 Marv of fice - Xray today. OV from today and May. Thank you. Diagnosis 1 Pain in left shoulde r (M25.512) Referral Organization [facility] Referring Provider First Name Daivd Referring Provider Last Name Luis Miguel Referring Provider Specialty Family [facility] [place] Referred Organization [facility] Referred Provider [place]Adelso Referred Address ,[place], [place],[address] Referred Provider Specialty Orthopaedic Surgery Referral Priority Routine General Notes Ginger Pruitt 01:20:29 PM >received today, no XR from today in chart, notes locked, other attachments made, referral faxxed Sonal Ginger 07/03/2022 10:55:25 AM >FAXED FIRST ATTEMPT LETTER Additional Source Comments INFORMATION SOURCE (unrecogn ized section and content) DATE CREATED AUTHOR 11/24/2018 [facility] DATE CREATED AUTHOR AUTHOR'S ORGANIZ ATION 08/01/2022 [facility] DATE CREATED AUTHOR AUTHOR'S ORGANIZ ATION 05/12/2024 [facility] DATE CREATED AUTHOR AUTHOR'S ORGANIZ ATION 05/13/2024 [facility] EPIC DATE CREATED AUTHOR AUTHOR'S ORGANIZ ATION 07/01/2024 [facility] DATE CREATED AUTHOR AUTHOR'S ORGANIZ ATION 08/10/2024 [facility] REASON FOR VISIT (unrecogniz ed [...] 2024 End: August 09, 2024 Anahi Rg , DISTRICT RECRUITER-ELECTRON TUBE ASSEMBLER-C Attending Provider Active Start: August 09, 2024 [...] Active Regina Biggs MD Attending Provider Active Development Writer Relationship Specialty Start Date End Date David Bolanos MD [address] [place] [facility] [phone] PCP - General Family Medicine 03/19/12 Development Writer Relationship Specialty Start Date End Date David Bolanos MD [address] [place] [facility] [place] [phone] PCP - General Family Medicine 03/19/12 Development Writer Relationship Specialty Start Date End Date David Bolanos MD [address] [place] [facility] [place] [phone] PCP - General Family Medicine 03/19/12 Development Writer Relationship Specialty Start Date End Date David Bolanos MD [address] [facility] [phone] PCP - General Family Medicine 07/10/23 Development Writer Relationship Specialty Start Date End Date David Bolanos MD [address] [facility] [phone] PCP - General Family Medicine 07/10/23 Development Writer Relationship Specialty Start Date End Date David Bolanos MD [address] [facility] [phone] PCP - General Family Medicine 07/10/23 Development Writer Relationship Specialty Start Date End Date David Bolanos MD [address] [facility] [phone] PCP - General Family Medicine 07/10/23 Development Writer Relationship Specialty Start Date End Date David Bolanos MD [address] [facility] [phone] PCP - General Family Medicine 07/10/23 Development Writer Relationship Specialty Start Date End Date David Bolanos MD [address] [place] [facility] [phone] PCP - General Family Medicine 03/19/12 Team [...] 2024 End: September 28, 2024 Anahi Rg APRN-ELECTRON TUBE ASSEMBLER-C Attending Provider Active Start: September 28, 2024 End: September 28, 2024 Team Status: Inactive Member Role Status Dates David Bolanos MD Primary Care Provider Active Start: December 01, 2024 End: December 01, 2024 David Bolanos MD Attending Provider Active St art: December 01, 2024 End: December 01, 2024 Team Status: Active Member Role Status Dates David Bolanos MD Primary Care Provider Active Start: December 03, 2024 David Bolanos MD Attending Provider Active St art: December 03, 2024 Team Status: Inactive Member Role Status Dates David Bolanos MD Primary Care Provider Active Start: December 21, 2024 End: December 21, 2024 Gaetano Dempsey DO Attending Provider Active Sta rt: December 21, 2024 End: December 21, 2024 Goals (unrecognized section and content) Goals may be documented in a n alternate section Source Comments (unrecognize d section and content) In the event this informatio n is protected by the Federal Confidentiality of Alcohol and Drug Abuse Patient Records regulations: The Federal rules restrict any use of the information to criminally investigate or prosecute any alcohol or drug abuse patient.[facility] the event this information is protected by the Federal Confidentiality of Alcohol and Drug Abuse Patient Records regulations: The Federal rules restrict any use of the information to criminally investigate or prosecute any alcohol or drug abuse patient.[facility] the event this information is protected by the Federal Confidentiality of Alcohol and Drug Abuse Patient Records regulations: The Federal rules restrict any use of the information to criminally investigate or prosecute any alcohol or drug abuse patient.[facility] the event this information is protected by the Federal Confidentiality of Alcohol and Drug Abuse Patient Records regulations: The Federal rules restrict any use of the information to criminally investigate or prosecute any alcohol or drug abuse patient.[facility] FOR RECORDS PERTAINING TO PATIENTS WHO [...] BE BASED ON THE PRIMARY CLINICAL RECORDS. [facility]. provides no warranty or guarantee of the accuracy or completeness of information in this document.
== END 2025-01-17 14:49 | disposition home or self-care (01) ==
LOC: RAD 14:49
PROVIDERS: PCP Family Medicine; Visit Provider Family Medicine
DX: M79.642 Pain in left hand (principal)
CPT/HCPCS: 73130